=== PATIENT | male | born 1950 | race African-American/Black ===

== ENCOUNTER 2016-11-08 05:17 | Inpatient (IN) | payer OTHER ==
--- NOTE | 2016-11-08 05:21 | PDOC ---
History of Present Illness - General History Source: EMS, Spouse () Exam Limitations: Clinical Condition - History of Present Illness Initial Comments: 11/08/16 05:56 The patient is a 66 year old male with significant past medical history of HIV, well controlled on meds, hypertension, hyperlipemia, hep C that was treated, and insulin-dependent diabetes on metformin and 70/30 novolog 30 units bid who presents to the ED BIBA from home for AMS prior to arrival. As per , at bedside, patient woke up around 1am to go to the bathroom. After she did not notice him come back, she turned on the lights and noted patient to be breathing heavily and was AMS. She reports patient was in his usual state of health yesterday and is noncompliant with his medications. Upon EMS arrival, patients blood sugar levels were noted to be elevated. Allergies: NKDA Social History: Current smoker (1 daily), etoh use, heroin use Past Surgical History: R knee surgery PCP: Dr. Garfield Ko Endocrinology: Dr. Kacy Ruiz <Jenny Mckeon - Last Filed: 11/08/16 07:04> - General History Source: Spouse <Duncan Landis - Last Filed: 11/08/16 19:22> - General Stated Complaint: BLOOD SUGAR PROBLEM Time Seen by Provider: 11/08/16 05:21 Past History <Jenny Mckeon - Last Filed: 11/08/16 07:04> - Past Medical History Anemia: No Asthma: No Cancer: No Cardiac Disorders: Yes (hx high bp, advised to get stents) CVA: No COPD: No CHF: No Dementia: No Diabetes: No GI Disorders: Yes (?ulcers) Disorders: No HTN: Yes Hypercholesterolemia: Yes Liver Disease: No Seizures: No Thyroid Disease: No - Surgical History Orthopedic Surgery: Yes (R knee surgery 01/25/12 = biopsy) - Psycho/Social/Smoking Cessation Hx Anxiety: No Suicidal Ideation: No Smoking History: Current every day smoker Have you smoked in the past 12 months: Yes Number of Cigarettes Smoked Daily: 1 Cigars Per Day: 0 'Breaking Loose' booklet given: 07/07/15 (given previous admission) Hx Alcohol Use: Yes Drug/Substance Use Hx: Yes Substance Use Type: Alcohol, Heroin Hx Substance Use Treatment: Yes (MMTP,REHAB,DETOX) <Duncan Landis - Last Filed: 11/08/16 19:22> - Past Medical History Allergies/Adverse Reactions: Allergies Allergy/AdvReac Type Severity Reaction Status Date / Time No Known Drug Allergies Allergy Verified 11/08/16 05:53 pollen and dust Allergy Mild Itching Uncoded 11/08/16 05:53 weeds Allergy Mild Uncoded 11/08/16 05:53 Home Medications: Ambulatory Orders ASA - 81 mg PO DAILY 11/08/16 Hctz - 12.5 mg PO DAILY 11/08/16 Metformin Xr 100 mg PO 11/08/16 Novolog Flexpen SQ ACHS 11/08/16 Ranexa 500 mg PO DAILY 11/08/16 Review of Systems - Review of Systems Able to Perform ROS?: No Comments:: 11/08/16 05:56 Unable to obtain ROS due to clinical condition <Jenny Mckeon - Last Filed: 11/08/16 07:04> *Physical Exam - Vital Signs Last Vital Signs Temp Pulse Resp BP Pulse Ox 168 H 30 H 98/61 11/08/16 05:53 11/08/16 05:53 11/08/16 05:53 - Physical Exam Comments: 11/08/16 06:07 GENERAL: Pt is combative and confused. HEENT: Normocephalic, atraumatic. PERRLA, EOMI. No conjunctival pallor. Sclera are non- icteric. Moist mucous membranes. Oropharynx is clear. NECK: Supple. Full ROM. No JVD. No thyromegaly. No lymphadenopathy. CARDIOVASCULAR: Tachycardia. Regular rhythm. + s1 and s2. No murmurs, rubs, or gallops. PULMONARY: Pt is tachypneic. Lungs clear to auscultation bilaterally. No wheezing, rales or rhonchi. ABDOMINAL: Soft. Non-tender. Non-distended. No rebound or guarding. No organomegaly. Normoactive bowel sounds. MUSCULOSKELETAL Normal range of motion at all joints. No bony deformities or tenderness. EXTREMITIES: No cyanosis. No clubbing. No edema. No calf tenderness. SKIN: Warm and dry. Normal capillary refill. No rashes. No jaundice. NEUROLOGICAL: Pt is unresponsive due to clinical condition. Moves all extremities x4 spontaneously. <Jenny Mckeon - Last Filed: 11/08/16 07:04> Procedures - Intubation Time of Intubation: 06:30 Intubation Method: nasotracheal Blade used: Mac Tube Size (Fr): 7.5 Medications: Etomidate, Rocuronium Tube position @ lip (cm): 21 Tube position confirmed by: Direct visualization Breath Sounds after Intubation: equal Intubation Complications: no complications Post Intubation Xray: Yes - Additional Procedures Additional Procedures: other (right side IO to medial tibial region. Pt tolerated procedure well. ) <Duncan Landis - Last Filed: 11/08/16 19:22> Heart Score/ECG Review - ECG Impressions Comment:: 11/08/16 05:57 Sinus tachycardia @113bpm Possible left atrial enlargement Left axis deviation Abnormal ECG <Jenny Mckeon - Last Filed: 11/08/16 07:04> ED Treatment Course - LABORATORY CBC & Chemistry Diagram: 11/08/16 05:42 11/08/16 05:42 <Jenny Mckeon - Last Filed: 11/08/16 07:04> - LABORATORY CBC & Chemistry Diagram: 11/08/16 15:30 11/08/16 15:30 <Duncan Landis - Last Filed: 11/08/16 19:22> Medical Decision Making - Critical Care Time Total Critical Care Time (minutes): 60 Critical Care Statement: The care of this patient involved high complexity decision making to prevent further life threatening deterioration of the patient 's condition and/or to evalute & treat vital organ system(s) failure or risk of failure. - Medical Decision Making 11/08/16 06:[address] Jessica Hernandez (via answering service) at 6:27 Awaiting call back 11/08/16 06:47 Second call placed to Dr. Hernandez (via answering service) at 6:47 Awaiting call back 11/08/16 07:04 Third call placed to Dr. Hernandez (via answering service) at 7:04 and patient's case was discussed. <Jenny Mckeon - Last Filed: 11/08/16 07:04> *DC/Admit/Observation/Transfer - Attestations Scribe Attestion: 11/08/16 05:57 Documentation prepared by Jenny Mckeon, acting as medical office worker for Duncan Landis MD <Jenny Mckeon - Last Filed: 11/08/16 07:04> - Discharge Dispostion Admit: Yes <Duncan Landis - Last Filed: 11/08/16 19:22> Diagnosis at time of Disposition: Insulin dependent diabetes mellitus - Discharge Dispostion Condition at time of disposition: Stable - Referrals
[2016-11-08] MEDS ORDERED: SODIUM CHLORIDE 1,000 ML IV STA ×2 (05:23→05:24)
[2016-11-08] MEDS ORDERED: INSULIN REGULAR HUMAN 100 UNITS/ML *VIAL IVPUSH ONE (05:28)
[2016-11-08] MEDS ORDERED: INSULIN REGULAR HUMAN 100 UNITS/ML *VIAL ONE (05:30)
[2016-11-08] MEDS ORDERED: SODIUM BICARBONATE 8.4% 50 MEQ/50 ML DISP.SYRIN IVPUSH ONE ×2 (06:08)
[2016-11-08 06:10] LABS: INR 1.09 (0.82-1.09)
[2016-11-08] MEDS ORDERED: RAPID SEQUENCE INTUBATION KIT NR ONE ×2 (06:11→06:15)
[2016-11-08 06:21] LABS: ALBUMIN 3.5 g/dl (3.4-5.0); AMYLASE 137 U/L (25-115); BILIRUBIN,TOTAL 0.9 mg/dL (0.2-1.0); CALCIUM 8.9 mg/dL (8.5-10.1); CREATININE 3.6 mg/dL (0.7-1.3); SGOT/AST 38 U/L (15-37); SGPT/ALT 24 U/L (12-78); TOT PROT 7.1 g/dl (6.4-8.2)
[2016-11-08 06:24] LABS: ALK PHOS 100 U/L (45-117); TROPONIN I < 0.02 ng/ml (0.00-0.05)
[2016-11-08] MEDS ORDERED: PROPOFOL 100 ML ONE ×4 (06:25→21:20)
[2016-11-08] MEDS ORDERED: ROCURONIUM BROMIDE 100 MG/10 ML VIAL IV ONE (06:30)
[2016-11-08] MEDS ORDERED: ETOMIDATE 20 MG/10 ML AMPUL IVPUSH ONE (06:32)
[2016-11-08 06:35] LABS: ANION GAP 50 (8-16); CO2 3 mmol/L (21-32)
[2016-11-08 06:38] LABS: MCH 29.9 pg (25.7-33.7); MCHC 26.8 g/dl (32.0-35.9); MEAN CELL VOLUME 111.6 fl (80-96); MEAN PLT VOLUME 11.4 fl (7.5-11.1); PLATELET COUNT 142 K/MM3 (134-434); RDW 16.6 % (11.9-15.9); WHITE BLOOD COUNT 14.5 K/mm3 (4.0-10.0)
[2016-11-08 06:40] LABS: GLUCOSE,RANDOM 1326 mg/dL (74-106)
[2016-11-08 06:42] LABS: ACETONE SERUM POSITIVE MODERATE 2+ (NEGATIVE)
[2016-11-08] MEDS ORDERED: SODIUM CHLORIDE 1,000 ML IV ONE (06:48)
[2016-11-08] MEDS ORDERED: PROPOFOL 100 ML IVPB ONE (06:51)
[2016-11-08] MEDS ORDERED: SODIUM CHLORIDE 1,000 ML IV SCH ×2 (07:00→09:00)
[2016-11-08] MEDS ORDERED: LEVOFLOXACIN 500 MG IVPB 100 ML IVPB ONE ×2 (07:06→07:23)
[2016-11-08 07:12] LABS: URINE APPEARANCE CLEAR; URINE BILIRUBIN NEGATIVE (NEGATIVE); URINE COLOR STRAW; URINE GLUCOSE (UA) 3+ (NEGATIVE); URINE KETONE 1+ (NEGATIVE); URINE LEUK ESTERASE NEGATIVE (NEGATIVE); URINE NITRITE NEGATIVE (NEGATIVE); URINE UROBILINOGEN NEGATIVE E.U./dl (0.2-1.0)
[2016-11-08 07:15] LABS: ARTERIAL BLD GAS O2 SATURATION 98.4 % (90-98.9); ARTERIAL BLOOD GAS BASE EXCESS -22.2 meq/l (-2-2); ARTERIAL BLOOD GAS HCO3 8.5 meq/L (22-26)
[2016-11-08 07:16] LABS: ALLENS TEST POSITIVE; ART PUNCT SITE RIGHT RADIAL; LPM/O2% 50%; METHEMOGLOBIN 0.8 % (0.4-1.5); PT. ON O2? YES
[2016-11-08 07:17] LABS: MECH. VENT. YES; TYPE OF O2 MECH VENT; VENT RATE 20; VT/PRESS 400
[2016-11-08 07:17] LABS: URINE BLOOD 2+ (NEGATIVE); URINE PROTEIN 1+ (NEGATIVE)
[2016-11-08 07:18] LABS: ARTERIAL BLOOD GAS pH 6.99 (7.35-7.45)
[2016-11-08 07:19] LABS: URINE BACTERIA RARE /hpf (NONE SEEN); URINE MUCUS RARE; URINE RBC 7 /hpf (0-3); URINE WBC 6 /hpf (3-5)
[2016-11-08 07:30] LABS: ANISOCYTOSIS 2+
--- NOTE | 2016-11-08 07:43 | PDOC ---
*Physical Exam - Vital Signs Last Vital Signs Temp Pulse Resp BP Pulse Ox 93.1 F L 113 H 20 162/94 100 11/08/16 06:44 11/08/16 07:01 11/08/16 07:01 11/08/16 07:01 11/08/16 07:01 - Physical Exam Comments: 11/08/16 07:40 intubated, sedated on vent HR 100 BP 160/90 ED Treatment Course - LABORATORY CBC & Chemistry Diagram: 11/08/16 05:42 11/08/16 05:42 - ADDITIONAL ORDERS Additional order review: Laboratory Results 11/08/16 11/08/16 11/08/16 05:42 05:42 05:42 INR 1.09 Sodium 128 L Potassium 5.0 D Chloride 75 L D Carbon Dioxide 3 L D Anion Gap 50 H BUN 40 H Creatinine 3.6 H D Creat Clearance w eGFR 17.00 Random Glucose 1326 H* Calcium 8.9 Total Bilirubin 0.9 D AST 38 H D ALT 24 Alkaline Phosphatase 100 Creatine Kinase 125 Troponin I < 0.02 Total Protein 7.1 Albumin 3.5 Total Amylase 137 H Lipase 94 Alcohol, Quantitative < 5.0 Acetone, Qual Positive moderate 2+ 11/08/16 05:42 RBC 3.66 L MCV 111.6 H MCHC 26.8 L RDW 16.6 H D MPV 11.4 H D Neutrophils % 65.0 Lymphocytes % 16.0 D Monocytes % 3.0 L - Medications Given in the ED: ED Medications Discontinued Medications Generic Name Dose Route Start Last Admin Trade Name Freq PRN Reason Stop Dose Admin Etomidate 20 mg 11/08/16 06:32 11/08/16 06:33 Amidate - IVPUSH 11/08/16 06:33 20 mg NOW ONE Administration Sodium Chloride 1,000 mls @ 1,000 mls/hr 11/08/16 05:23 11/08/16 05:30 Normal Saline - IV 11/08/16 06:22 1,000 mls/hr ASDIR STA Administration Sodium Chloride 1,000 mls @ 1,000 mls/hr 11/08/16 05:24 11/08/16 05:30 Normal Saline - IV 11/08/16 06:23 1,000 mls/hr ASDIR STA Administration Insulin Human Regular 10 units 11/08/16 05:28 11/08/16 05:56 Novolin R Vial *For Ivpush Or Iv Drip Only* IVPUSH 11/08/16 05:29 10 unit ONCE ONE Administration Rocuronium [place] 5 mg 11/08/16 06:30 11/08/16 06:31 Zemuron - IV 11/08/16 06:31 5 mg NOW ONE Administration Sodium Bicarbonate 50 meq 11/08/16 06:08 11/08/16 06:29 Sodium Bicarbonate 8.4% - IVPUSH 11/08/16 06:09 50 meq ONCE ONE Administration Sodium Bicarbonate 50 meq 11/08/16 06:08 11/08/16 06:29 Sodium Bicarbonate 8.4% - IVPUSH 11/08/16 06:09 50 meq ONCE ONE Administration Medical Decision Making - Critical Care Time Total Critical Care Time (minutes): 30 Critical Care Statement: The care of this patient involved high complexity decision making to prevent further life threatening deterioration of the patient 's condition and/or to evalute & treat vital organ system(s) failure or risk of failure. - Medical Decision Making 11/08/16 07:41 Received signout on this patient who presented in DKA with severe metabolic disarray, severe acidosis, AMS requiring intubation. Pt received IV insulin bolus and IVF, bedside glucose improved to 400 so insulin drip held. Pt was admitted to Dr. Hernandez and endorsed to ICU. Given the markedly elevated anion gap of 50, will recheck labs, start on insulin drip and supplement dextrose as needed. Proceed with ICU admission. *DC/Admit/Observation/Transfer Diagnosis at time of Disposition: Insulin dependent diabetes mellitus - Discharge Dispostion Condition at time of disposition: Stable
[2016-11-08] MEDS ORDERED: INSULIN REGULAR 100 UNITS in SODIUM CHLORIDE 99 ML IVPB SCH (07:45)
[2016-11-08 08:23] LABS: ALBUMIN 3.4 g/dl (3.4-5.0); ALK PHOS 113 U/L (45-117); ANION GAP 38 (8-16); BILIRUBIN,TOTAL 0.9 mg/dL (0.2-1.0); CALCIUM 8.8 mg/dL (8.5-10.1); CO2 10 mmol/L (21-32); CREATININE 3.1 mg/dL (0.7-1.3); SGPT/ALT 28 U/L (12-78)
[2016-11-08 08:33] LABS: ACETONE SERUM POSITIVE MODERATE 2+ (NEGATIVE)
[2016-11-08 08:35] LABS: SGOT/AST 52 U/L (15-37)
[2016-11-08 08:39] LABS: GLUCOSE,RANDOM 1047 mg/dL (74-106)
[2016-11-08] MEDS ORDERED: SODIUM CHLORIDE 1,000 ML with POTASSIUM CHLORIDE 20 MEQ IVPB SCH (09:15)
--- NOTE | 2016-11-08 09:24 | CONSULT ---
Consultation: REQUESTING PROVIDER: CONSULT REQUEST: We have been asked to medically evaluate this patient for (ICU) . 66M past medical history of hypertension, HLD, hep C that was treated, on methadone 60mg, and insulin-dependent diabetes on metformin and 70/30 novolog 30 units bid who presents to the ED via ambulance for lethargy and AMS. as per patient was feeling weak and sluggish for the past 4 days when he suddenly walk up at night walked to the bathroom and back from bed when he vomited once in bed. reports walking up to her and his eyes rolled back and AMS. found to have BS of 1326, AG 50, lactic acid 15, +2 aceton , Found to be in DKA but intubated for respiratory distress from severe acidosis. to note: patient is noncompliant with his medications presented to Dr. Garfield thomas yesterday tachycardic, normotensive, afebrile, with With blood glucose in 500's given 13 units of insulin, CXR and CT yesterday unremarkable, UA (no wbc, no nitrites, +ketones) , EKG Sinus @100bpm. reports he has only taken one of the two insulins the day prior. not filled his insulin drip the day prior as long line in pharmacy. History from Dr. Garfield Thomas, medical chart, and . Allergies: NKDA Social History: heavy smoker, etoh use, heroin use on methadone 60mg. Past Surgical History: R knee surgery PCP: Dr. Garfield Thomas Endocrinology: Dr. Kacy Ruiz HISTORY OF PRESENT ILLNESS: REVIEW OF SYSTEMS: no attainable CONSTITUTIONAL: Absent: fever, chills, diaphoresis, generalized weakness, malaise, loss of appetite, weight change HEENT: Absent: rhinorrhea, nasal congestion, throat pain, throat swelling, difficulty swallowing, mouth swelling, ear pain, eye pain, visual changes CARDIOVASCULAR: Absent: chest pain, syncope, palpitations, irregular heart rate, lightheadedness , peripheral edema RESPIRATORY: Absent: cough, shortness of breath, dyspnea with exertion, orthopnea, wheezing, stridor, hemoptysis GASTROINTESTINAL: Absent: abdominal pain, abdominal distension, nausea, vomiting, diarrhea, constipation, melena, hematochezia GENITOURINARY: Absent: dysuria, frequency, urgency, hesitancy, hematuria, flank pain, genital pain MUSCULOSKELETAL: Absent: myalgia, arthralgia, joint swelling, back pain, neck pain SKIN: Absent: rash, itching, pallor HEMATOLOGIC/IMMUNOLOGIC: Absent: easy bleeding, easy bruising, lymphadenopathy, frequent infections ENDOCRINE: Absent: unexplained weight gain, unexplained weight loss, heat intolerance, cold intolerance NEUROLOGIC: Absent: headache, focal weakness or paresthesias, dizziness, unsteady gait, seizure, mental status changes, bladder or bowel incontinence PSYCHIATRIC: Absent: anxiety, depression, suicidal or homicidal ideation, hallucinations. PHYSICAL EXAMINATION Vital Signs - 24 hr 11/08/16 11/08/16 11/08/16 06:44 07:01 08:01 Temperature 93.1 F L 95.4 F L Pulse Rate 116 H Pulse Rate [ 113 H 127 H Apical] Respiratory 20 20 19 Rate Blood Pressure 179/110 Blood Pressure 162/94 141/89 [Left Arm] O2 Sat by Pulse 100 100 100 Oximetry (%) 11/08/16 08:33 Temperature Pulse Rate Pulse Rate [ Apical] Respiratory 19 Rate Blood Pressure Blood Pressure [Left Arm] O2 Sat by Pulse Oximetry (%) GENERAL: sedated and intubated, HEAD: Normal with no signs of trauma. EYES: Pupils equal, round and reactive to light, pinpoint pupils, EARS, NOSE, THROAT: dry mucous membranes. NECK: Normal range of motion, +JVD, supple without lymphadenopathy,or masses. LUNGS:decreased breath sounds at the bases. HEART: tachycardic regular, hydrodynamic heart sounds, boobing of head with heart beat, normal S1 and S2 with, no rub or gallop appreciated ABDOMEN: Soft, nontender, not distended, normoactive bowel sounds, no guarding, no rebound, no masses. No hepatomegaly or splenomegaly. MUSCULOSKELETAL: Normal range of motion at all joints. No bony deformities or tenderness. LOWER EXTREMITIES: well-perfused. No calf tenderness. No peripheral edema. IO in Right anterior leg. PSYCHIATRIC: Cooperative. Good eye contact. Appropriate mood and affect. SKIN: Warm, dry, normal turgor, no rashes or lesions noted. Laboratory Results - last 24 hr 11/08/16 11/08/16 11/08/16 06:42 06:57 07:00 Puncture Site Right radial ABG pH 6.99 L* ABG pCO2 at Pt Temp 37.3 ABG pO2 at Pt Temp 222.0 H* ABG HCO3 8.5 L* ABG O2 Sat (Measured) 98.4 ABG O2 Content 15.9 ABG Base Excess -22.2 L* Dariusz Test Positive Carboxyhemoglobin 0.6 Methemoglobin 0.8 O2 Delivery Device Mech vent Oxygen Flow Rate 50% Vent Mode A/c Vent Rate 20 Mechanical Rate Yes PEEP 5.0 Pressure Support Vent 400 Sodium Potassium Chloride Carbon Dioxide Anion Gap BUN Creatinine Creat Clearance w eGFR Random Glucose Lactic Acid 18.706 H* Calcium Magnesium Total Bilirubin AST ALT Alkaline Phosphatase Total Protein Albumin Urine Color Straw Urine Appearance Clear Urine pH 6.0 Ur Specific Corrigan 1.018 Urine Protein 1+ H Urine Glucose (UA) 3+ H Urine Ketones 1+ H Urine Blood 2+ H Urine Nitrite Negative Urine Bilirubin Negative Urine Urobilinogen Negative Ur Leukocyte Esterase Negative Urine RBC 7 Urine WBC 6 Urine Bacteria Rare Urine Mucus Rare Acetone, Qual 11/08/16 07:35 Puncture Site ABG pH ABG pCO2 at Pt Temp ABG pO2 at Pt Temp ABG HCO3 ABG O2 Sat (Measured) ABG O2 Content ABG Base Excess Dariusz Test Carboxyhemoglobin Methemoglobin O2 Delivery Device Oxygen Flow Rate Vent Mode Vent Rate Mechanical Rate PEEP Pressure Support Vent Sodium 133 L Potassium 4.1 Chloride 85 L D Carbon Dioxide 10 L D Anion Gap 38 H BUN 35 H Creatinine 3.1 H Creat Clearance w eGFR 20.20 Random Glucose 1047 H* Lactic Acid Calcium 8.8 Magnesium 3.0 H D Total Bilirubin 0.9 AST 52 H D ALT 28 Alkaline Phosphatase 113 Total Protein 7.0 Albumin 3.4 Urine Color Urine Appearance Urine pH Ur Specific Corrigan Urine Protein Urine Glucose (UA) Urine Ketones Urine Blood Urine Nitrite Urine Bilirubin Urine Urobilinogen Ur Leukocyte Esterase Urine RBC Urine WBC Urine Bacteria Urine Mucus Acetone, Qual Positive moderate 2+ Active Medications Generic Name Dose Route Start Last Admin Trade Name Freq PRN Reason Stop Dose Admin Heparin Sodium (Porcine) 5,000 unit 11/08/16 14:00 11/08/16 13:57 Heparin - SQ 5,000 unit TID LAMAR Administration Propofol 100 mls @ 1.769 mls/hr 11/08/16 06:51 11/08/16 06:51 Diprivan - IVPB 11/10/16 15:22 1.769 mls/hr TITR ONE Administration Protocol 5 MCG/KG/MIN Insulin Human Regular 100 100 mls @ 5.89 mls/hr 11/08/16 07:45 11/08/16 09:17 units/ Sodium Chloride IVPB 0.16 units/kg/hr TITR LAMAR Titration Protocol 0.1 UNITS/KG/HR Potassium Chloride/Sodium Chloride 1,000 mls @ 200 mls/hr 11/08/16 09:38 12:03 Ns+20 Meq Kcl - IV 11/09/16 14:17 200 mls/hr ASDIR LAMAR Administration Piperacillin Sod/Tazobactam Sod 50 mls @ 100 mls/hr 11/08/16 13:45 11/08/16 13: 57 Zosyn 2.25gm Ivpb (Pre-Docked) IVPB 100 mls/hr Q8H-IV LAMAR Administration Protocol Pantoprazole Sodium 40 mg/ 100 mls @ 200 mls/hr 11/08/16 22:00 Sodium Chloride IVPB BID LAMAR Methadone HCl 60 mg 11/09/16 06:00 Dolophine Injection - IM DAILY@0600 [facility] ASSESSMENT/PLAN: 66M past medical history of hypertension, HLD, hep C that was treated, and insulin-dependent diabetes on metformin and 70/30 novolog 30 units bid who presents to the ED via ambulance for lethargy and AMS. found to have BS of 1326, AG 50, lactic acid 15, +2 aceton, Found to be in DKA but intubated for respiratory distress from severe acidosis. DKA: Sever metabolic acidosis and acute respiratory Acidosis Resp failure r/o sepsis s/p IVNS bolus x3 IV1/2 normal saline, IVD51/2 normal saline if BG less 250 i9n light of corrected Na 147. insulin gtt 0.1U/kg/H, crease to 0.05 U/kg/H once sugar bellow 250 and once AG closes. if sugar less than 250 switch to D5NSIV Kcl given, replete when K is less than 4.5. cont to monitor serum potassium even after transfusion. finger sticks q1h BMP q4H hypokalmia replete k 3x Garibaldi hypophosphatemia kphos IV 30meq Pseudohyponatremia: intially corrected Na 148, now 147. f/u urine and Bcx NS switched D5 1/2 NS and Decrease rate inlight of JVD and improvement of gap. lactic acidosis: lactic acid q6h- trending down 18.706 H* --> 8.169 H*--> 6.697 H* hypotenssion: stable s/p bolus and IVF Sever sepsis: leukocytosis/ bandemia/hypothermia/ tachycardia/ possible sepsis/ hypotension Lactic Acidosis trend Empiric antibiotics follow cultures vanco/ zosyn adjusted for azotemia vanco levelin am Shock - Hypovolemic vs Septic IV fluids Hypothermia, possibly secondary to sepsis, currently improved. IVF and sepsis treatment as above. Acute Kidney Injury 2/2 prerenal Azotemia- hypovolemia vs sepsis vs ATN IVF Urine lytes urine osmolarity Hepatitis C carrier ID on board Heroin use: urine tox screen + opoids and methadone on chronic methadone, continue 60mg daily 6am. monitor for signs of withdrawal FEN replete electrolytes as needed NPO IV1/2 noraml saline, IVD51/2 normal saline if BG less 250. - once resuscitated, can establish peripheral access and d/c I/O line - keep sedated for vent synchrony DVT/GI prophylaxis - HEPRIN 5000 tid SQ - Pantoprazole Dispo: We will continue to follow the patient in ICU. Thank you for this consultative opportunity. Visit type - Emergency Visit Emergency Visit: Yes ED Registration Date: 11/08/16 Care time: The patient presented to the Emergency Department on the above date and was hospitalized for further evaluation of their emergent condition. - New Patient This patient is new to me today: Yes Date on this admission: 11/08/16 - Critical Care Critical Care patient: Yes Total Critical Care Time (in minutes): 52 Critical Care Statement: The care of this patient involved high complexity decision making to prevent further life threatening deterioration of the patient 's condition and/or to evalute & treat vital organ system(s) failure or risk of failure.
[2016-11-08] MEDS ORDERED: SODIUM CHLORIDE 0.9%/KCL 1,000 ML IV SCH (09:38)
[2016-11-08 10:05] VITALS: BMI 20.3
[2016-11-08 10:09] LABS: ARTERIAL BLD GAS O2 SATURATION 99.8 % (90-98.9); ARTERIAL BLOOD GAS BASE EXCESS -7.9 meq/l (-2-2); ARTERIAL BLOOD GAS HCO3 16.4 meq/L (22-26)
[2016-11-08 10:10] LABS: ALLENS TEST POSITIVE; ART PUNCT SITE RIGHT RADIAL; ARTERIAL BLOOD GAS pH 7.34 (7.35-7.45); PT. ON O2? YES
[2016-11-08 10:11] LABS: LPM/O2% 50%; MECH. VENT. ESPRIT; TYPE OF O2 OT; VENT RATE 20; VT/PRESS 400
[2016-11-08 10:56] LABS: BILIRUBIN,TOTAL 0.7 mg/dL (0.2-1.0); CALCIUM 7.9 mg/dL (8.5-10.1); CREATININE 3.2 mg/dL (0.7-1.3); TOT PROT 6.4 g/dl (6.4-8.2)
--- NOTE | 2016-11-08 11:32 | EKG ---
Test Reason : Blood Pressure : / mmHG Vent. Rate : 113 BPM Atrial Rate : 113 BPM P-R Int : 136 ms QRS Dur : 084 ms QT Int : 348 ms P-R-T Axes : 063 -49 066 degrees QTc Int : 477 ms POOR DATA QUALITY, INTERPRETATION MAY BE ADVERSELY AFFECTED SINUS TACHYCARDIA POSSIBLE LEFT ATRIAL ENLARGEMENT LEFT AXIS DEVIATION ABNORMAL ECG WHEN COMPARED WITH ECG OF 26-MAY-2016 08:41, VENT. RATE HAS INCREASED BY [address] NO LONGER ELEVATED IN LATERAL LEADS T WAVE INVERSION NO LONGER EVIDENT IN INFERIOR LEADS Confirmed by VALERIA EASTMAN MD ([id number]) on 11/08/2016 11:31:31 AM Referred By: Confirmed By:VALERIA EASTMAN MD
--- NOTE | 2016-11-08 11:32 | EKG ---
Test Reason : Blood Pressure : / mmHG Vent. Rate : 098 BPM Atrial Rate : 098 BPM P-R Int : 128 ms QRS Dur : 082 ms QT Int : 386 ms P-R-T Axes : 076 -23 065 degrees QTc Int : 492 ms SINUS RHYTHM WITH OCCASIONAL PREMATURE VENTRICULAR COMPLEXES LOW VOLTAGE QRS INFERIOR INFARCT , AGE UNDETERMINED ABNORMAL ECG WHEN COMPARED WITH ECG OF 08-NOV-2016 05:52, PREMATURE VENTRICULAR COMPLEXES ARE NOW PRESENT INFERIOR INFARCT IS NOW PRESENT Confirmed by RAIZA CLAIRE, VALERIA ([id number]) on 11/08/2016 11:32:32 AM Referred By: Laurie TORRES Confirmed By:VALERIA EASTMAN MD
[2016-11-08] MEDS ORDERED: HEMOQUE TEST 1 EACH EACH ONE (11:52)
--- NOTE | 2016-11-08 12:32 | PN ---
Teaching Attending Note Name of Resident: Michelle Anna ATTENDING PHYSICIAN STATEMENT I saw and evaluated the patient. I reviewed the resident's note and discussed the case with the resident. I agree with the resident's findings and plan as documented. SUBJECTIVE: Pt seen and examined in the ICU. Briefly, 66yo male with h/o DM, HTN, hyperlipidemia, Hep C who was admitted with lethargy, altered mental status. Found to be in DKA but intubated for respiratory distress from severe acidosis. Currently in the ICU, intubated, sedated, family at bedside on insulin gtt and IVF. OBJECTIVE: Last Vital Signs Temp Pulse Resp BP Pulse Ox 99.1 F 116 H 22 86/67 99 11/08/16 10:46 11/08/16 10:46 11/08/16 11:58 11/08/16 10:46 11/08/16 10:39 Intake & Output 11/05/16 11/06/16 11/07/16 11/08/16 23:59 23:59 23:59 23:59 Output Total 200 Balance -200 Weight 142 lb Gen: intubated, sedated Heart: tachycardic, regular Lung: decreased breath sounds at the bases Abd: soft, nontender Ext: no edema CBC, BMP 11/08/16 05:42 ABG Results ABG pH 7.34 (7.35-7.45) L D 11/08/16 10:05 ABG pCO2 at Pt Temp 31.1 mmHg (35-45) L 11/08/16 10:05 ABG pO2 at Pt Temp 212.0 mmHg (80-100) H* 11/08/16 10:05 ABG HCO3 16.4 meq/L (22-26) L 11/08/16 10:05 ABG O2 Sat (Measured) 99.8 % (90-98.9) H* 11/08/16 10:05 ABG O2 Content 14.3 % vol (15-22) L 11/08/16 10:05 ABG Base Excess -7.9 meq/l (-2-2) L 11/08/16 10:05 Active Medications Heparin Sodium (Porcine) (Heparin -) 5,000 unit SQ TID LAMAR Propofol (Diprivan -) 100 mls @ 1.769 mls/hr IVPB TITR ONE; 5 MCG/KG/MIN PRN Reason: Protocol Stop: 11/10/16 15:22 Last Admin: 11/08/16 06:51 Dose: 1.769 mls/hr Insulin Human Regular 100 (units/ Sodium Chloride) 100 mls @ 5.89 mls/hr IVPB TITR LAMAR; 0.1 UNITS/KG/HR PRN Reason: Protocol Last Titration: 11/08/16 09:17 Dose: 0.16 units/kg/hr Potassium Chloride/Sodium Chloride (Ns+20 Meq Kcl -) 1,000 mls @ 200 mls/hr IV ASDIR LAMAR Stop: 11/09/16 14:17 Last Admin: 11/08/16 12:03 Dose: 200 mls/hr Pantoprazole Sodium (Protonix 40mg Ivpb (Pre-Docked)) 100 mls @ 200 mls/hr IVPB ONCE ONE Stop: 11/08/16 13:14 ASSESSMENT AND PLAN: Diabetic Ketoacidosis/HHNK overlap Severe Metabolic Acidosis Acute Respiratory Acidosis r/o Sepsis Lactic Acidosis Pseudohyponatremia Acute Kidney Injury Shock - Hypovolemic vs Septic - aggressive IVF resuscitation - empiric antibiotics - f/u cultures - insulin gtt - monitor BMP, BGM - replete lytes - trend lactate - keep sedated for vent synchrony - once resuscitated, can establish peripheral access and d/c I/O line - monitor ABG - continue volume assist control - DVT/GI prophylaxis - ICU monitoring
[2016-11-08 12:44] LABS: CALCIUM 7.5 mg/dL (8.5-10.1); CREATININE 2.8 mg/dL (0.7-1.3)
--- NOTE | 2016-11-08 12:44 | PN ---
Progress Note (short form) - Note Progress Note: ID consult dictated DKA Hypothermia, leukocytosis/ bandemia possible sepsis Resp failure Azotemia Pending sepsis workup, empiric vanco/ zosyn adjusted for azotemia
[2016-11-08] MEDS ORDERED: PANTOPRAZOLE SODIUM 100 ML IVPB ONE (12:45)
[2016-11-08] MEDS ORDERED: VANCOMYCIN 1 GRAM (PRE-DOCKED) 250 ML IVPB ONE (13:45)
[2016-11-08] MEDS: HEPARIN NA (PORCINE) 5,000 UNITS/ML 1ML VIAL SQ SCH ×2 (13:57→21:22)
[2016-11-08] MEDS: PIPERACILLIN/TAZOB 2.25 GM 50 ML IVPB SCH ×2 (13:57→17:38)
[2016-11-08 16:01] LABS: URINE MARIJUANA THC NEGATIVE ng/ml (CUTOFF=50)
--- NOTE | 2016-11-08 16:15 | CONS ---
INFECTIOUS DISEASE CONSULTATION DATE OF CONSULTATION: 11/08/2016 DICTATED BY: Jaguar Aguirre MD HISTORY OF PRESENT ILLNESS: A 66-year-old diabetic male evaluated for leukocytosis and hypothermia. History was obtained from the chart as the patient is presently intubated and unable to give a history. His was present at the time of the examination. She reports that he had not been feeling well for approximately 1 day. She reports on the evening of admission he had become increasingly confused and unsteady on his feet. He had ambulated to the bathroom where he vomited and was noted by his to be unsteady. He was also dyspneic. He was brought to the emergency room where his blood sugar was over 1000. He was diagnosed with diabetic ketoacidosis. Patient developed respiratory failure and was intubated. At the present time, he is intubated and sedated on a ventilator. His course has been complicated by hypothermia with a temperature of 93 and an elevated white blood cell count with left shift. He was empirically treated with Levaquin. At the present time he is awake. He is sedated on the ventilator. She denies any recent febrile illness. No recent respiratory tract illness or urinary tract complaints. No recent diarrhea. He did have episodes of vomiting prior to admission. Patient states he had been adherent to his insulin regimen. PAST MEDICAL HISTORY: Positive for insulin-dependent diabetes mellitus, history of hypertension, hyperlipidemia, hepatitis C, which reportedly was treated. No known allergies. SOCIAL HISTORY: Lives at home with his significant other. Positive tobacco use. Also, history of alcohol and heroine use per chart. SYSTEMS REVIEW: Neurologic: Positive for altered mentation. Cardiac: Negative chest pain or palpitations. Respiratory: As per HPI. Gastrointestinal: Positive for vomiting, no diarrhea. Genitourinary: Negative for urinary tract symptoms. LABORATORY DATA: White count 14.5 with 16 bands, hematocrit 40.9, platelet count 142. Urinalysis: 6 white cells. Blood and urine cultures are pending. Chest x-ray: Negative for acute infiltrate. PHYSICAL EXAMINATION: General: He is sedated on the ventilator. Vital signs: Temperature 99.1, blood pressure 86/67, pulse 116/regular, respirations 22 per minute. HEENT: Sclerae anicteric. Neck is supple. Patient is orally intubated. Heart: Sounds tachycardic. S1, S2. Lungs: Air entry bilaterally. Abdomen: Soft. No tenderness elicited. No mass, rebound or rigidity. Extremities: Negative for edema. There is an IV catheter in his foot as well as intraosseous catheter in his right tibia. No foot ulcers noted. IMPRESSION: 1. Acute diabetic ketoacidosis. 2. Hypothermia, hypotension, leukocytosis with bandemia, possible sepsis. PLAN: 1. Await culture results. 2. Empiric antibiotic coverage in this patient with diabetic ketoacidosis and azotemia with vancomycin and Zosyn adjusted for azotemia. Case discussed with patient's present at the time of the examination. Thank you for the kind referral. JAGUAR AGUIRRE M.D. [id number]
[2016-11-08 16:17] LABS: BASOPHIL 0.1 % (0-2.0); EOSINOPHIL 0.5 % (0-4.5); MCH 29.8 pg (25.7-33.7); MEAN CELL VOLUME 90.3 fl (80-96); MEAN PLT VOLUME 10.1 fl (7.5-11.1); NEUTROPHILS 82.8 % (42.8-82.8); WHITE BLOOD COUNT 7.6 K/mm3 (4.0-10.0)
[2016-11-08] MEDS: INSULIN REGULAR 100 UNITS in SODIUM CHLORIDE 99 ML IVPB SCH ×2 (16:22→16:45)
--- NOTE | 2016-11-08 17:03 | CON.CARD ---
Consult Consult Specialty:: Cardiology Referred by:: Dr. Hernandez Reason for Consultation:: h/o cardiomyopathy - History of Present Illness Chief Complaint: DKA History of Present Illness: 66 year old man h/o HIV, HTN, HLD, HCV, DM II admitted with AMS, SOB, found to be in DKA, intubated for airway progression. Pt. has a history of a "cardiomyopathy" as per PMD notes but unknown details. Pt. seen and examined in ICU, intubated, sedated, unresponsive. No reported history of chest pain, palpitations, pnd, orthopnea, or LE edema. - History Source History Provided By: Medical Record Limitations to Obtaining History: Unresponsive - Past Medical History Cardio/Vascular: Yes: HTN, Hyperlipdemia Infectious Disease: Yes: HIV Endocrine: Yes: Diabetes Mellitus - Alcohol/Substance Use Hx Alcohol Use: Yes - Smoking History Smoking history: Current every day smoker Have you smoked in the past 12 months: Yes Aproximately how many cigarettes per day: 10 - Social History Usual Living Arrangement: With Spouse ADL: Independent History of Recent Travel: No Home Medications - Allergies Allergies/Adverse Reactions: Allergies Allergy/AdvReac Type Severity Reaction Status Date / Time No Known Drug Allergies Allergy Verified 11/08/16 05:53 pollen and dust Allergy Mild Itching Uncoded 11/08/16 05:53 weeds Allergy Mild Uncoded 11/08/16 05:53 - Home Medications Home Medications: Ambulatory Orders ASA - 81 mg PO DAILY 11/08/16 Hctz - 12.5 mg PO DAILY 11/08/16 Metformin Xr 100 mg PO 11/08/16 Novolog Flexpen SQ ACHS 11/08/16 Ranexa 500 mg PO DAILY 11/08/16 Family Disease History - Family Disease History Family Disease History: Diabetes: Mother ( age 84 from dm), Heart Disease: Father ( age 50s hx mi), Mother, Brother (8 brothers, 1 d age 60s from ca), Other: Grandparent (all dec' natural causes), Father, Brother, Sister (3 all a&w), Son (has 4 a&w), Daughter (2 a&w) Review of Systems - Review of Systems Constitutional: reports: Lethargy, Malaise, Weakness. denies: No Symptoms, Chills, Diaphoresis, Fever, Loss of Appetite, Night Sweats, Unintentional Wgt. Loss, Other Eyes: denies: No Symptoms, Blind Spots, Blurred Vision, Double Vision, Eye Pain , Floaters, Photophobia, Recent Change in Vision, Other HENT: denies: No Symptoms, Difficult Swallowing, Ear Discharge, Ear Pain, Epistaxis, Gingival Bleeding, Hearing Loss, Mouth Swelling, Nasal Congestion, Ocular Prosthesis, Throat Pain, Toothache, Ringing in Ears, Other Neck: denies: No Symptoms, Decreased ROM, Lumps, Pain on Movement, Stiffness, Swollen Glands, Tenderness, Other Cardiovascular: reports: Shortness of Breath. denies: No Symptoms, Chest Pain, Edema, Palpitations, Other Respiratory: reports: SOB. denies: No Symptoms, Cough, Exercise Intolerance, Hemoptysis, Orthopnea, PND, Snoring, SOB on Exertion, Wheezing, Other Gastrointestinal: denies: No Symptoms, Abdominal Pain, Bloating, Constipation, Diarrhea, Dysphagia, Indigestion, Melena, Nausea, Rectal Bleeding, Vomiting, Vomiting Blood, Other Genitourinary: denies: No Symptoms, Burning, Discharge, Dysuria, Flank Pain, Frequency, Hematuria, Incontinence, Lesions, Menses, Pain, Testicular Mass, Testicular Pain, Testicular Swelling, Urgency, Vaginal Bleeding, Other Breasts: denies: No Symptoms Reported, See HPI, Breast Implants, Discharge from Nipple, Lumps, Pain, Skin Changes, Other Musculoskeletal: denies: No Symptoms, Back Pain, Crepitus, Decreased ROM, Extremity Pain, Joint Pain, Joint Swelling, Muscle Pain, Muscle Cramps, Muscle Weakness, Other Integumentary: denies: No Symptoms, Blister, Bruising, Change in Color, Eczema, Erythema, Incision, Lesions, Lump, Pallor, Pruritis, Rash, Wound, Other Neurological: reports: Change in LOC, Confusion. denies: No Symptoms, Change in Speech, Dizziness, Headache, Incoordination, Numbness, Parasthesia, Pre- Existing Deficit, Seizure, Syncope, Tremors, Unsteady Gait, Weakness, Other Endocrine: denies: No Symptoms, Excessive Sweating, Flushing, Increased Hunger, Increased Thirst, Intolerance to Cold, Intolerance to Heat, Unexplained Weight Gain, Unexplained Weight Loss, Other Hematology/Lymphatic: denies: No Symptoms, Easily Bruised, Excessive Bleeding, Swollen Glands, Other Psychiatric: denies: No Symptoms, Altered Sleep Pattern, Anxiety, Depression, Hallucinations, Panic, Paranoia, Suicidal, Other - Risk Factors Known Risk Factors: Yes: Diabetes Mellitus, Hypercholesterolemia, Hypertension Vital Signs: Vital Signs Temperature 99.6 F 11/08/16 16:00 Pulse Rate 96 H 11/08/16 16:00 Respiratory Rate 22 11/08/16 16:17 Blood Pressure 110/66 11/08/16 16:00 O2 Sat by Pulse Oximetry (%) 99 11/08/16 10:39 Constitutional: Yes: No Distress, Calm, Thin Eyes: Yes: Conjunctiva Clear, PERRL HENT: Yes: Atraumatic, Normocephalic Neck: Yes: Supple, Trachea Midline Respiratory: Yes: Regular, CTA Bilaterally, Intubated, Mechanically Ventilated. No: Rales, Rhonchi, Wheezes Gastrointestinal: Yes: WNL, Normal Bowel Sounds, Soft. No: Distention, Tenderness Renal/: Yes: WNL Cardiovascular: Yes: WNL, Regular Rate and Rhythm. No: Bradycardia, Tachycardia , Pulse Irregular, Gallop, Rub, Varicosities JVD: No Carotid Bruit: No PMI: Non-Displaced Heart Sounds: Yes: S1, S2. No: Split S2, S3, S4, Clicks, Gallop, Rub, Bruit Murmur: No: Systolic Murmur, Diastolic Murmur Edema: No Peripheral Pulses WNL: Yes Peripheral Pulses: 2+ Left Doralis Pedis, 2+ Right Dorsalis Pedis Integumentary: Yes: WNL Neurological: Yes: Unresponsive. No: Alert, Oriented Psychiatric: No: Alert, Oriented - Other Data Labs, Other Data: CBC, BMP 11/08/16 15:30 INR, PTT INR 1.09 (0.82-1.09) 11/08/16 05:42 ekg-sinus tach 113bpm, LAD, LAFB Imaging - Results Chest X-ray: Report Reviewed, Image Reviewed EKG: Report Reviewed, Image Reviewed Other: Report Reviewed, Image Reviewed (tele-nsr, sinus tach, pvcs) Assessment/Plan 66 year old man h/o HIV, HTN, HLD, HCV, DM II admitted with AMS, SOB, found to be in DKA, intubated for airway progression. Pt. has a history of a "cardiomyopathy" as per PMD notes but unknown details. Respiratory failure-secondary to DKA -as per CCM -no sign of CHF clinically or on imaging -can check echo tomorrow given reported history of unknown "cardiomyopathy" -would not diurese at this time HTN-hypotensive on admission -hold anti-HTN meds
[2016-11-08 17:18] LABS: CALCIUM 7.2 mg/dL (8.5-10.1); MAGNESIUM 2.3 mg/dL (1.8-2.4)
[2016-11-08 17:25] LABS: CREATININE 2.2 mg/dL (0.7-1.3)
[2016-11-08 18:30] LABS: PHOSPHOROUS 0.7 mg/dL (2.5-4.9)
[2016-11-08] MEDS ORDERED: DEXTROSE 5%-0.45% SALINE 1,000 ML IV SCH (19:00)
[2016-11-08 19:05] LABS: PLATELET COUNT 95 K/MM3 (134-434); PLATELET ESTIMATE DECREASED (NORMAL)
[2016-11-08] MEDS: KCL 10 MEQ IVPB 100 ML IVPB SCH ×3 (20:36→21:42)
[2016-11-08 20:48] LABS: CALCIUM 7.7 mg/dL (8.5-10.1); CREATININE 1.9 mg/dL (0.7-1.3); MAGNESIUM 2.2 mg/dL (1.8-2.4)
[2016-11-08] MEDS ORDERED: POTASSIUM PHOSPHATE 30 MM in DEXTROSE 5%-WATER - 250 ML IVPB ONE (21:00)
[2016-11-08] MEDS: PANTOPRAZOLE SODIUM 100 ML IVPB SCH (21:22)
[2016-11-08] MEDS ORDERED: D5-1/2NS+20 MEQ KCL - 1,000 ML IV SCH (22:00)
[2016-11-08] MEDS ORDERED: SODIUM CHLORIDE 0.45%/POT 1,000 ML IV SCH (22:00)
--- NOTE | 2016-11-09 00:30 | CONSULT ---
Consult Consult Specialty:: endocrine Referred by:: dr.rocco agudelo Reason for Consultation:: dka - History of Present Illness Chief Complaint: intubated /dka History of Present Illness: 66 y male intubated in icu,under sedation,pmh iddm,hiv,hep c,htn,hyperlipidemia, found unresponsive by who called ems,bs noted very high in dka - History Source History Provided By: Family Member - Past Medical History Cardio/Vascular: Yes: HTN, Hyperlipdemia Infectious Disease: Yes: HIV Endocrine: Yes: Diabetes Mellitus - Alcohol/Substance Use Hx Alcohol Use: Yes - Smoking History Smoking history: Current every day smoker Have you smoked in the past 12 months: Yes Aproximately how many cigarettes per day: 1 - Social History Usual Living Arrangement: With Spouse ADL: Independent History of Recent Travel: No Home Medications - Allergies Allergies/Adverse Reactions: Allergies Allergy/AdvReac Type Severity Reaction Status Date / Time No Known Drug Allergies Allergy Verified 11/08/16 05:53 pollen and dust Allergy Mild Itching Uncoded 11/08/16 05:53 weeds Allergy Mild Uncoded 11/08/16 05:53 - Home Medications Home Medications: Ambulatory Orders ASA - 81 mg PO DAILY 11/08/16 Hctz - 12.5 mg PO DAILY 11/08/16 Metformin Xr 100 mg PO 11/08/16 Novolog Flexpen SQ ACHS 11/08/16 Ranexa 500 mg PO DAILY 11/08/16 Family Disease History - Family Disease History Family Disease History: Diabetes: Mother (dec'd age 84 from dm), Heart Disease: Father (jul'd age 50s hx mi), Mother, Brother (8 brothers, 1 dec'd age 60s from ca), Other: Grandparent (all dec'd natural causes), Father, Brother, Sister (3 all a&w), Son (has 4 a&w), Daughter (2 a&w) Review of Systems Unable to obtain ROS, reason: intubated sedation Physical Exam Vital Signs: Vital Signs Temperature 100.4 F H 11/08/16 22:01 Pulse Rate 92 H 11/08/16 22:01 Respiratory Rate 20 11/09/16 00:20 Blood Pressure 107/71 11/08/16 22:01 O2 Sat by Pulse Oximetry (%) 100 11/08/16 22:12 Eyes: Yes: EOM Intact HENT: Yes: Normocephalic Neck: Yes: Trachea Midline Cardiovascular: Yes: Regular Rate and Rhythm Respiratory: Yes: CTA Bilaterally Gastrointestinal: Yes: Normal Bowel Sounds ...Rectal Exam: Yes: Deferred Renal/: Yes: WNL Breast(s): Yes: WNL Musculoskeletal: Yes: WNL Extremities: Yes: WNL Edema: No Peripheral Pulses WNL: Yes Neurological: Yes: Unresponsive Labs: CBC, BMP 11/08/16 15:30 11/08/16 17:55 Problem List - Problems (1) Insulin dependent diabetes mellitus Code(s): E11.9 - TYPE 2 DIABETES MELLITUS WITHOUT COMPLICATIONS Z79.4 - INSPECTOR TYPE (CURRENT) USE OF INSULIN (2) Chronic use of opiate for therapeutic purpose Code(s): Z79.899 - OTHER JAIL (CURRENT) DRUG THERAPY (3) DKA (diabetic ketoacidosis) Code(s): E13.10 - OTH DIABETES MELLITUS WITH KETOACIDOSIS WITHOUT COMA Assessment/Plan Current Active Problems Hypoglycemia (Acute) Insulin dependent diabetes mellitus (Chronic) DKA./HYPOVOLEMIA/SEPSIS/ LACTIC ACIDOSIS DEHYDDRATION Abnormal Lab Results 11/08/16 11/08/16 11/08/16 05:42 05:42 06:42 WBC 14.5 H D RBC 3.66 L Hgb 10.9 L D Hct MCV 111.6 H MCHC 26.8 L RDW 16.6 H D Plt Count MPV 11.4 H D Monocytes % 3.0 L Band Neutrophils 16.0 H ABG pH ABG pCO2 at Pt Temp ABG pO2 at Pt Temp ABG HCO3 ABG O2 Sat (Measured) ABG O2 Content ABG Base Excess Sodium 128 L Potassium Chloride 75 L D Carbon Dioxide 3 L D Anion Gap 50 H BUN 40 H Creatinine 3.6 H D Random Glucose 1326 H* Lactic Acid 18.706 H* Calcium Phosphorus Magnesium AST 38 H D Albumin Total Amylase 137 H Urine Protein Urine Glucose (UA) Urine Ketones Urine Blood 11/08/16 11/08/16 11/08/16 06:57 07:00 07:35 WBC RBC Hgb Hct MCV MCHC RDW Plt Count MPV Monocytes % Band Neutrophils ABG pH 6.99 L* ABG pCO2 at Pt Temp ABG pO2 at Pt Temp 222.0 H* ABG HCO3 8.5 L* ABG O2 Sat (Measured) ABG O2 Content ABG Base Excess -22.2 L* Sodium 133 L Potassium Chloride 85 L D Carbon Dioxide 10 L D Anion Gap 38 H BUN 35 H Creatinine 3.1 H Random Glucose 1047 H* Lactic Acid Calcium Phosphorus Magnesium 3.0 H D AST 52 H D Albumin Total Amylase Urine Protein 1+ H Urine Glucose (UA) 3+ H Urine Ketones 1+ H Urine Blood 2+ H 11/08/16 11/08/16 11/08/16 10:00 10:00 10:05 WBC RBC Hgb Hct MCV MCHC RDW Plt Count MPV Monocytes % Band Neutrophils ABG pH 7.34 L D ABG pCO2 at Pt Temp 31.1 L ABG pO2 at Pt Temp 212.0 H* ABG HCO3 16.4 L ABG O2 Sat (Measured) 99.8 H* ABG O2 Content 14.3 L ABG Base Excess -7.9 L Sodium 135 L Potassium Chloride 89 L Carbon Dioxide 19 L D Anion Gap 27 H BUN 41 H Creatinine 3.2 H Random Glucose 1053 H* Lactic Acid 8.169 H* Calcium 7.9 L Phosphorus Magnesium AST 52 H Albumin 3.0 L Total Amylase Urine Protein Urine Glucose (UA) Urine Ketones Urine Blood 11/08/16 11/08/16 11/08/16 11:40 11:40 15:30 WBC RBC Hgb Hct MCV MCHC RDW Plt Count MPV Monocytes % Band Neutrophils ABG pH ABG pCO2 at Pt Temp ABG pO2 at Pt Temp ABG HCO3 ABG O2 Sat (Measured) ABG O2 Content ABG Base Excess Sodium Potassium Chloride Carbon Dioxide Anion Gap 19 H BUN 37 H Creatinine 2.8 H Random Glucose 810 H* D Lactic Acid 6.697 H* 6.096 H* Calcium 7.5 L Phosphorus Magnesium AST Albumin Total Amylase Urine Protein Urine Glucose (UA) Urine Ketones Urine Blood 11/08/16 11/08/16 11/08/16 15:30 15:30 17:55 WBC RBC 3.03 L Hgb 9.0 L D Hct 27.4 L D MCV MCHC RDW Plt Count 95 L D MPV Monocytes % Band Neutrophils ABG pH ABG pCO2 at Pt Temp ABG pO2 at Pt Temp ABG HCO3 ABG O2 Sat (Measured) ABG O2 Content ABG Base Excess Sodium 147 H 149 H Potassium 3.2 L 3.2 L Chloride 109 H D 113 H Carbon Dioxide Anion Gap BUN 29 H D 26 H Creatinine 2.2 H D 1.9 H Random Glucose 356 H* D Lactic Acid Calcium 7.2 L 7.7 L Phosphorus 0.7 L* 1.0 L* D Magnesium AST Albumin Total Amylase Urine Protein Urine Glucose (UA) Urine Ketones Urine Blood 11/08/16 17:55 WBC RBC Hgb Hct MCV MCHC RDW Plt Count MPV Monocytes % Band Neutrophils ABG pH ABG pCO2 at Pt Temp ABG pO2 at Pt Temp ABG HCO3 ABG O2 Sat (Measured) ABG O2 Content ABG Base Excess Sodium Potassium Chloride Carbon Dioxide Anion Gap BUN Creatinine Random Glucose Lactic Acid 3.750 H* Calcium Phosphorus Magnesium AST Albumin Total Amylase Urine Protein Urine Glucose (UA) Urine Ketones Urine Blood PLAN: CORRECTION OF HYPERGLYCEMIA WITH IVFLUID NS @200CC /HR THEN IVINSULIN DRIP Q1 HR NEEDED THEN D.5NS @20KCL FOR BS BELOW 150MG/DL \TITRATE INSULIN DRIP FOR BGM SCALE NEEDED
[2016-11-09] MEDS ORDERED: FENTANYL INJECTION 500 MCG in DEXTROSE 5%-WATER - 90 ML IJ SCH (00:45)
--- NOTE | 2016-11-09 00:54 | HP ---
Admitting History and Physical - Past Medical History Cardiovascular: Yes: HTN, Hyperlipdemia Infectious Disease: Yes: HIV Endocrine: Yes: Diabetes Mellitus - Smoking History Smoking history: Current every day smoker Have you smoked in the past 12 months: Yes Aproximately how many cigarettes per day: 1 - Alcohol/Substance Use Hx Alcohol Use: Yes - Social History ADL: Independent History of Recent Travel: No Home Medications - Allergies Allergies/Adverse Reactions: Allergies Allergy/AdvReac Type Severity Reaction Status Date / Time No Known Drug Allergies Allergy Verified 11/08/16 05:53 pollen and dust Allergy Mild Itching Uncoded 11/08/16 05:53 weeds Allergy Mild Uncoded 11/08/16 05:53 - Home Medications Home Medications: Ambulatory Orders ASA - 81 mg PO DAILY 11/08/16 Hctz - 12.5 mg PO DAILY 11/08/16 Metformin Xr 100 mg PO 11/08/16 Novolog Flexpen SQ ACHS 11/08/16 Ranexa 500 mg PO DAILY 11/08/16 Family Disease History - Family Disease History Family Disease History: Diabetes: Mother (decd age 84 from dm), Heart Disease: Father (decd age 50s hx mi), Mother, Brother (8 brothers, 1 dec'd age 60s from ca), Other: Grandparent (all decd natural causes), Father, Brother, Sister (3 all a&w), Son (has 4 a&w), Daughter (2 a&w) Physical Examination Vital Signs: Vital Signs Temperature 100.4 F H 11/08/16 22:01 Pulse Rate 92 H 11/08/16 22:01 Respiratory Rate 20 11/09/16 00:20 Blood Pressure 107/71 11/08/16 22:01 O2 Sat by Pulse Oximetry (%) 100 11/08/16 22:12 Labs: CBC, BMP 11/08/16 15:30 11/08/16 17:55 Problem List - Problems (1) DKA (diabetic ketoacidosis) Code(s): E13.10 - OTH DIABETES MELLITUS WITH KETOACIDOSIS WITHOUT COMA (2) Sepsis Code(s): A41.9 - SEPSIS, UNSPECIFIED ORGANISM (3) HTN (hypertension) Code(s): I10 - ESSENTIAL (PRIMARY) HYPERTENSION (4) HIV (human immunodeficiency virus infection) Code(s): Z21 - ASYMPTOMATIC HUMAN IMMUNODEFICIENCY VIRUS INFECTION STATUS
[2016-11-09] MEDS: PIPERACILLIN/TAZOB 2.25 GM 50 ML IVPB SCH ×3 (01:18→17:36)
[2016-11-09 01:29] LABS: OSMOLALITY,SERUM 325 mosm/kg (278-305)
[2016-11-09] MEDS ORDERED: METHADONE HCL 10 MG/1 ML (20ML VIAL) IM SCH (06:00)
[2016-11-09 06:29] LABS: BASOPHIL 0.3 % (0-2.0); EOSINOPHIL 0.3 % (0-4.5); MCH 29.9 pg (25.7-33.7); MCHC 33.3 g/dl (32.0-35.9); MEAN CELL VOLUME 89.9 fl (80-96); MEAN PLT VOLUME 10.8 fl (7.5-11.1); NEUTROPHILS 66.5 % (42.8-82.8); PLATELET COUNT 69 K/MM3 (134-434); RDW 14.1 % (11.9-15.9); WHITE BLOOD COUNT 7.8 K/mm3 (4.0-10.0)
[2016-11-09] MEDS: HEPARIN NA (PORCINE) 5,000 UNITS/ML 1ML VIAL SQ SCH (06:32)
[2016-11-09 06:48] LABS: CALCIUM 7.8 mg/dL (8.5-10.1); CREATININE 1.8 mg/dL (0.7-1.3); MAGNESIUM 2.1 mg/dL (1.8-2.4)
[2016-11-09 07:47] LABS: ARTERIAL BLD GAS O2 SATURATION 98.9 % (90-98.9); ARTERIAL BLOOD GAS BASE EXCESS 0.4 meq/l (-2-2); ARTERIAL BLOOD GAS HCO3 24.3 meq/L (22-26); ARTERIAL BLOOD GAS pH 7.42 (7.35-7.45)
[2016-11-09 07:48] LABS: ALLENS TEST POSITIVE; ART PUNCT SITE RIGHT RADIAL; LPM/O2% 30%; MECH. VENT. Y; PT. ON O2? YES; TYPE OF O2 VENT
[2016-11-09 07:49] LABS: VENT RATE 20; VT/PRESS 400
[2016-11-09] MEDS ORDERED: PROPOFOL 100 ML ONE (08:10)
--- NOTE | 2016-11-09 08:29 | PN ---
Physical Exam: SUBJECTIVE: Patient seen and examined at bed side. extubated today. in no respiratory or acute distress no cp, sob, hdz, n/v Tmx 101.5, wbc trended down, thrombocytopenia OBJECTIVE: Vital Signs Period Temp Pulse Resp BP Sys/Foley Pulse Ox Last 24 Hr 99.1 F-100.7 F 86-116 19-24 70-123/62-89 99-100 GENERAL: The patient is awake, alert, confused oriented x0 HEAD: Normal with no signs of trauma. ENT: Ears normal, nares patent, oropharynx clear without exudates, dry mucous membranes. NECK: Trachea midline, full range of motion, supple. LUNGS: scattered rhonchi, on nc non labored breathing. HEART: tachycardic regular, ABDOMEN: Soft, nontender, nondistended, normoactive bowel sounds, no guarding, no rebound, no hepatosplenomegaly, no masses. EXTREMITIES: 2+ pulses, warm, well-perfused, no edema. SKIN: Warm, dry, normal turgor, no rashes or lesions noted Laboratory Results - last 24 hr 11/08/16 11/08/16 11/08/16 06:42 07:35 07:44 WBC RBC Hgb Hct MCV MCHC RDW Plt Count MPV Neutrophils % Lymphocytes % Monocytes % Eosinophils % Basophils % Platelet Estimate Puncture Site ABG pH ABG pCO2 at Pt Temp ABG pO2 at Pt Temp ABG HCO3 ABG O2 Sat (Measured) ABG O2 Content ABG Base Excess Dariusz Test O2 Delivery Device Oxygen Flow Rate Vent Mode Vent Rate Mechanical Rate PEEP Pressure Support Vent Sodium 133 L Potassium 4.1 Chloride 85 L D Carbon Dioxide 10 L D Anion Gap 38 H BUN 35 H Creatinine 3.1 H Creat Clearance w eGFR 20.20 POC Glucometer > 400 Random Glucose 1047 H* Serum Osmolality Lactic Acid 18.706 H* Calcium 8.8 Phosphorus Magnesium 3.0 H D Total Bilirubin 0.9 AST 52 H D ALT 28 Alkaline Phosphatase 113 Total Protein 7.0 Albumin 3.4 Urine Osmolality Ur Random Sodium Ur Random Potassium Ur Random Chloride Random Vancomycin Opiates Screen Methadone Screen Barbiturate Screen Phencyclidine Screen Ur Amphetamines Screen MDMA (Ecstasy) Screen Benzodiazepines Screen Cocaine Screen U Marijuana (THC) Screen Acetone, Qual Positive moderate 2+ 11/08/16 11/08/16 11/08/16 10:00 10:00 10:05 WBC RBC Hgb Hct MCV MCHC RDW Plt Count MPV Neutrophils % Lymphocytes % Monocytes % Eosinophils % Basophils % Platelet Estimate Puncture Site Right radial ABG pH 7.34 L D ABG pCO2 at Pt Temp 31.1 L ABG pO2 at Pt Temp 212.0 H* ABG HCO3 16.4 L ABG O2 Sat (Measured) 99.8 H* ABG O2 Content 14.3 L ABG Base Excess -7.9 L Dariusz Test Positive O2 Delivery Device Ot Oxygen Flow Rate 50% Vent Mode Ac Vent Rate 20 Mechanical Rate Esprit PEEP 5.0 Pressure Support Vent 400 Sodium 135 L Potassium 4.1 Chloride 89 L Carbon Dioxide 19 L D Anion Gap 27 H BUN 41 H Creatinine 3.2 H Creat Clearance w eGFR 19.47 POC Glucometer Random Glucose 1053 H* Serum Osmolality Lactic Acid 8.169 H* Calcium 7.9 L Phosphorus Magnesium Total Bilirubin 0.7 D AST 52 H ALT 29 Alkaline Phosphatase 82 D Total Protein 6.4 Albumin 3.0 L Urine Osmolality Ur Random Sodium Ur Random Potassium Ur Random Chloride Random Vancomycin Opiates Screen Methadone Screen Barbiturate Screen Phencyclidine Screen Ur Amphetamines Screen MDMA (Ecstasy) Screen Benzodiazepines Screen Cocaine Screen U Marijuana (THC) Screen Acetone, Qual 11/08/16 11/08/16 11/08/16 10:16 11:40 11:40 WBC RBC Hgb Hct MCV MCHC RDW Plt Count MPV Neutrophils % Lymphocytes % Monocytes % Eosinophils % Basophils % Platelet Estimate Puncture Site ABG pH ABG pCO2 at Pt Temp ABG pO2 at Pt Temp ABG HCO3 ABG O2 Sat (Measured) ABG O2 Content ABG Base Excess Dariusz Test O2 Delivery Device Oxygen Flow Rate Vent Mode Vent Rate Mechanical Rate PEEP Pressure Support Vent Sodium 138 Potassium 3.6 Chloride 98 D Carbon Dioxide 21 Anion Gap 19 H BUN 37 H Creatinine 2.8 H Creat Clearance w eGFR POC Glucometer > 400 Random Glucose 810 H* D Serum Osmolality Lactic Acid 6.697 H* Calcium 7.5 L Phosphorus Magnesium Total Bilirubin AST ALT Alkaline Phosphatase Total Protein Albumin Urine Osmolality Ur Random Sodium Ur Random Potassium Ur Random Chloride Random Vancomycin Opiates Screen Methadone Screen Barbiturate Screen Phencyclidine Screen Ur Amphetamines Screen MDMA (Ecstasy) Screen Benzodiazepines Screen Cocaine Screen U Marijuana (THC) Screen Acetone, Qual 0311/08/16 11/08/16 11:54 14:03 14:56 WBC RBC Hgb Hct MCV MCHC RDW Plt Count MPV Neutrophils % Lymphocytes % Monocytes % Eosinophils % Basophils % Platelet Estimate Puncture Site ABG pH ABG pCO2 at Pt Temp ABG pO2 at Pt Temp ABG HCO3 ABG O2 Sat (Measured) ABG O2 Content ABG Base Excess Dariusz Test O2 Delivery Device Oxygen Flow Rate Vent Mode Vent Rate Mechanical Rate PEEP Pressure Support Vent Sodium Potassium Chloride Carbon Dioxide Anion Gap BUN Creatinine Creat Clearance w eGFR POC Glucometer > 400 > 400 > 400 Random Glucose Serum Osmolality Lactic Acid Calcium Phosphorus Magnesium Total Bilirubin AST ALT Alkaline Phosphatase Total Protein Albumin Urine Osmolality Ur Random Sodium Ur Random Potassium Ur Random Chloride Random Vancomycin Opiates Screen Methadone Screen Barbiturate Screen Phencyclidine Screen Ur Amphetamines Screen MDMA (Ecstasy) Screen Benzodiazepines Screen Cocaine Screen U Marijuana (THC) Screen Acetone, Qual 11/08/16 11/08/16 11/08/16 15:00 15:00 15:30 WBC RBC Hgb Hct MCV MCHC RDW Plt Count MPV Neutrophils % Lymphocytes % Monocytes % Eosinophils % Basophils % Platelet Estimate Puncture Site ABG pH ABG pCO2 at Pt Temp ABG pO2 at Pt Temp ABG HCO3 ABG O2 Sat (Measured) ABG O2 Content ABG Base Excess Dariusz Test O2 Delivery Device Oxygen Flow Rate Vent Mode Vent Rate Mechanical Rate PEEP Pressure Support Vent Sodium Potassium Chloride Carbon Dioxide Anion Gap BUN Creatinine Creat Clearance w eGFR POC Glucometer Random Glucose Serum Osmolality Lactic Acid 6.096 H* Calcium Phosphorus Magnesium Total Bilirubin AST ALT Alkaline Phosphatase Total Protein Albumin Urine Osmolality Ur Random Sodium 66 Ur Random Potassium 22.4 Ur Random Chloride 66 Random Vancomycin Opiates Screen Positive Methadone Screen Positive Barbiturate Screen Negative Phencyclidine Screen Negative Ur Amphetamines Screen Negative MDMA (Ecstasy) Screen Negative Benzodiazepines Screen Negative Cocaine Screen Negative U Marijuana (THC) Screen Negative Acetone, Qual 11/08/16 11/08/16 11/08/16 15:30 15:30 15:30 WBC 7.6 D RBC 3.03 L Hgb 9.0 L D Hct 27.4 L D MCV 90.3 MCHC 33.0 D RDW 14.0 D Plt Count 95 L D MPV 10.1 D Neutrophils % 82.8 D Lymphocytes % 12.8 Monocytes % 3.8 Eosinophils % 0.5 D Basophils % 0.1 Platelet Estimate Decreased Puncture Site ABG pH ABG pCO2 at Pt Temp ABG pO2 at Pt Temp ABG HCO3 ABG O2 Sat (Measured) ABG O2 Content ABG Base Excess Dariusz Test O2 Delivery Device Oxygen Flow Rate Vent Mode Vent Rate Mechanical Rate PEEP Pressure Support Vent Sodium 147 H Potassium 3.2 L Chloride 109 H D Carbon Dioxide 24 Anion Gap 14 BUN 29 H D Creatinine 2.2 H D Creat Clearance w eGFR POC Glucometer Random Glucose 356 H* D Serum Osmolality 325 H Lactic Acid Calcium 7.2 L Phosphorus 0.7 L* Magnesium 2.3 D Total Bilirubin AST ALT Alkaline Phosphatase Total Protein Albumin Urine Osmolality 652 Ur Random Sodium Ur Random Potassium Ur Random Chloride Random Vancomycin Opiates Screen Methadone Screen Barbiturate Screen Phencyclidine Screen Ur Amphetamines Screen MDMA (Ecstasy) Screen Benzodiazepines Screen Cocaine Screen U Marijuana (THC) Screen Acetone, Qual 11/08/16 11/08/16 11/08/16 16:00 17:33 17:55 WBC RBC Hgb Hct MCV MCHC RDW Plt Count MPV Neutrophils % Lymphocytes % Monocytes % Eosinophils % Basophils % Platelet Estimate Puncture Site ABG pH ABG pCO2 at Pt Temp ABG pO2 at Pt Temp ABG HCO3 ABG O2 Sat (Measured) ABG O2 Content ABG Base Excess Dariusz Test O2 Delivery Device Oxygen Flow Rate Vent Mode Vent Rate Mechanical Rate PEEP Pressure Support Vent Sodium 149 H Potassium 3.2 L Chloride 113 H Carbon Dioxide 24 Anion Gap 12 BUN 26 H Creatinine 1.9 H Creat Clearance w eGFR POC Glucometer > [phone] Random Glucose 90 D Serum Osmolality Lactic Acid Calcium 7.7 L Phosphorus 1.0 L* D Magnesium 2.2 Total Bilirubin AST ALT Alkaline Phosphatase Total Protein Albumin Urine Osmolality Ur Random Sodium Ur Random Potassium Ur Random Chloride Random Vancomycin Opiates Screen Methadone Screen Barbiturate Screen Phencyclidine Screen Ur Amphetamines Screen MDMA (Ecstasy) Screen Benzodiazepines Screen Cocaine Screen U Marijuana (THC) Screen Acetone, Qual 11/08/16 11/08/16 11/08/16 17:55 18:41 19:55 WBC RBC Hgb Hct MCV MCHC RDW Plt Count MPV Neutrophils % Lymphocytes % Monocytes % Eosinophils % Basophils % Platelet Estimate Puncture Site ABG pH ABG pCO2 at Pt Temp ABG pO2 at Pt Temp ABG HCO3 ABG O2 Sat (Measured) ABG O2 Content ABG Base Excess Dariusz Test O2 Delivery Device Oxygen Flow Rate Vent Mode Vent Rate Mechanical Rate PEEP Pressure Support Vent Sodium Potassium Chloride Carbon Dioxide Anion Gap BUN Creatinine Creat Clearance w eGFR POC Glucometer 185.12869 113.63608 Random Glucose Serum Osmolality Lactic Acid 3.750 H* Calcium Phosphorus Magnesium Total Bilirubin AST ALT Alkaline Phosphatase Total Protein Albumin Urine Osmolality Ur Random Sodium Ur Random Potassium Ur Random Chloride Random Vancomycin Opiates Screen Methadone Screen Barbiturate Screen Phencyclidine Screen Ur Amphetamines Screen MDMA (Ecstasy) Screen Benzodiazepines Screen Cocaine Screen U Marijuana (THC) Screen Acetone, Qual 11/08/16 11/09/16 11/09/16 22:04 00:19 01:55 WBC RBC Hgb Hct MCV MCHC RDW Plt Count MPV Neutrophils % Lymphocytes % Monocytes % Eosinophils % Basophils % Platelet Estimate Puncture Site ABG pH ABG pCO2 at Pt Temp ABG pO2 at Pt Temp ABG HCO3 ABG O2 Sat (Measured) ABG O2 Content ABG Base Excess Dariusz Test O2 Delivery Device Oxygen Flow Rate Vent Mode Vent Rate Mechanical Rate PEEP Pressure Support Vent Sodium Potassium Chloride Carbon Dioxide Anion Gap BUN Creatinine Creat Clearance w eGFR POC Glucometer 77.70099 133.18930 245.14389 Random Glucose Serum Osmolality Lactic Acid Calcium Phosphorus Magnesium Total Bilirubin AST ALT Alkaline Phosphatase Total Protein Albumin Urine Osmolality Ur Random Sodium Ur Random Potassium Ur Random Chloride Random Vancomycin Opiates Screen Methadone Screen Barbiturate Screen Phencyclidine Screen Ur Amphetamines Screen MDMA (Ecstasy) Screen Benzodiazepines Screen Cocaine Screen U Marijuana (THC) Screen Acetone, Qual 11/09/16 11/09/16 11/09/16 04:00 05:05 05:05 WBC RBC Hgb Hct MCV MCHC RDW Plt Count MPV Neutrophils % Lymphocytes % Monocytes % Eosinophils % Basophils % Platelet Estimate Puncture Site ABG pH ABG pCO2 at Pt Temp ABG pO2 at Pt Temp ABG HCO3 ABG O2 Sat (Measured) ABG O2 Content ABG Base Excess Dariusz Test O2 Delivery Device Oxygen Flow Rate Vent Mode Vent Rate Mechanical Rate PEEP Pressure Support Vent Sodium Potassium Chloride Carbon Dioxide Anion Gap BUN Creatinine Creat Clearance w eGFR POC Glucometer 91.94270 Random Glucose Serum Osmolality 304 Lactic Acid Calcium Phosphorus Magnesium Total Bilirubin AST ALT Alkaline Phosphatase Total Protein Albumin Urine Osmolality Ur Random Sodium Ur Random Potassium Ur Random Chloride Random Vancomycin 7.190 Opiates Screen Methadone Screen Barbiturate Screen Phencyclidine Screen Ur Amphetamines Screen MDMA (Ecstasy) Screen Benzodiazepines Screen Cocaine Screen U Marijuana (THC) Screen Acetone, Qual 11/09/16 11/09/16 11/09/16 05:05 05:05 07:25 WBC 7.8 RBC 3.38 L Hgb 10.1 L D Hct 30.4 L MCV 89.9 MCHC 33.3 RDW 14.1 Plt Count 69 L D MPV 10.8 Neutrophils % 66.5 Lymphocytes % 22.1 D Monocytes % 10.8 H D Eosinophils % 0.3 Basophils % 0.3 Platelet Estimate Puncture Site Right radial ABG pH 7.42 ABG pCO2 at Pt Temp 38.3 D ABG pO2 at Pt Temp 117.0 H D ABG HCO3 24.3 ABG O2 Sat (Measured) 98.9 ABG O2 Content 13.8 L ABG Base Excess 0.4 Dariusz Test Positive O2 Delivery Device Vent Oxygen Flow Rate 30% Vent Mode A/c Vent Rate 20 Mechanical Rate Y PEEP 5.0 Pressure Support Vent 400 Sodium 148 H Potassium 3.3 L Chloride 113 H Carbon Dioxide 26 Anion Gap 9 BUN 23 H Creatinine 1.8 H Creat Clearance w eGFR POC Glucometer Random Glucose 56 L D Serum Osmolality Lactic Acid Calcium 7.8 L Phosphorus Magnesium 2.1 Total Bilirubin AST ALT Alkaline Phosphatase Total Protein Albumin Urine Osmolality Ur Random Sodium Ur Random Potassium Ur Random Chloride Random Vancomycin Opiates Screen Methadone Screen Barbiturate Screen Phencyclidine Screen Ur Amphetamines Screen MDMA (Ecstasy) Screen Benzodiazepines Screen Cocaine Screen U Marijuana (THC) Screen Acetone, Qual Active Medications Generic Name Dose Route Start Last Admin Trade Name Freq PRN Reason Stop Dose Admin Heparin Sodium (Porcine) 5,000 unit 11/08/16 14:00 11/09/16 06:32 Heparin - SQ 5,000 unit TID LAMAR Administration Propofol 100 mls @ 1.769 mls/hr 11/08/16 06:51 11/08/16 19:00 Diprivan - IVPB 11/10/16 15:22 40 mcg/kg/min TITR ONE Titration Protocol 5 MCG/KG/MIN Piperacillin Sod/Tazobactam Sod 50 mls @ 100 mls/hr 11/08/16 13:45 11/09/16 01: 18 Zosyn 2.25gm Ivpb (Pre-Docked) IVPB 100 mls/hr Q8H-IV LAMAR Administration Protocol Pantoprazole Sodium 100 mls @ 200 mls/hr 11/08/16 22:00 11/08/16 21:22 Protonix 40mg Ivpb (Pre-Docked) IVPB 200 mls/hr BID LAMAR Administration Insulin Human Regular 100 100 mls @ 6.44 mls/hr 11/08/16 16:18 11/09/16 04:01 units/ Sodium Chloride IVPB 0.01 units/kg/hr TITR LAMAR Titration Protocol 0.1 UNITS/KG/HR Potassium Chloride/Dextrose/Sod Cl 1,000 mls @ 60 mls/hr 11/08/16 22:00 21:49 D5-1/2ns+20 Meq Kcl - IV 60 mls/hr ASDIR LAMAR Administration Potassium Chloride/Sodium Chloride 1,000 mls @ 70 mls/hr 11/08/16 22:00 1/2ns+20meq Kcl IV ASDIR LAMAR Fentanyl 500 mcg/ Dextrose 100 mls @ 5 mls/hr 11/09/16 00:45 11/09/16 01:18 IJ 5 mls/hr TITR LAMAR Administration 25 MCG/HR Methadone HCl 60 mg 11/09/16 06:00 Dolophine Injection - IM DAILY@0600 [facility] ASSESSMENT/PLAN: 66M past medical history of hypertension, HLD, hep C that was treated, and insulin-dependent diabetes on metformin and 70/30 novolog 30 units bid who presents to the ED via ambulance for lethargy and AMS. found to have BS of 1326, AG 50, lactic acid 15, +2 aceton, Found to be in DKA but intubated for respiratory distress from severe acidosis. DKA: Sever metabolic acidosis and acute respiratory Acidosis Resp failure- resolved. s/p extubation tolerating venti mask well r/o sepsis, f/u cultures Gap closed on ISS finger sticks q4h hypokalmia replete k hypophosphatemia kphos IV 30meq Pseudohyponatremia: now hypernatremia f/u urine and Bcx 1/2 NS lactic acidosis: trending down. hypotenssion: stable Sever sepsis: leukocytosis/ bandemia/hypothermia/ tachycardia/ possible sepsis/ hypotension Lactic Acidosis trend Empiric antibiotics follow cultures vanco/ zosyn adjusted for azotemia vanco levelin am Shock -resolved- Hypovolemic vs Septic IV fluids Hypothermia, possibly secondary to sepsis, currently improved. IVF and sepsis treatment as above. Acute Kidney Injury 2/2 prerenal Azotemia- hypovolemia vs sepsis vs ATN IVF Urine lytes urine osmolarity Hepatitis C carrier ID on board Heroin use: urine tox screen + opoids and methadone on chronic methadone, continue 60mg daily 6am. monitor for signs of withdrawal FEN replete electrolytes as needed NPO IV1/2 noraml saline DVT/GI prophylaxis - SCD - Pantoprazole Visit type - Emergency Visit Emergency Visit: Yes ED Registration Date: 11/08/16 Care time: The patient presented to the Emergency Department on the above date and was hospitalized for further evaluation of their emergent condition. - New Patient This patient is new to me today: Yes Date on this admission: 11/08/16 - Critical Care Critical Care patient: Yes Total Critical Care Time (in minutes): 49 Critical Care Statement: The care of this patient involved high complexity decision making to prevent further life threatening deterioration of the patient 's condition and/or to evalute & treat vital organ system(s) failure or risk of failure.
[2016-11-09] MEDS ORDERED: INSULIN DETEMIR 100 UNITS/ML MDV SQ ONE (08:31)
--- NOTE | 2016-11-09 08:38 | PN ---
Progress Note, Physician Chief Complaint: intubated, sedated on vent - Current Medication List Current Medications: Active Medications Heparin Sodium (Porcine) (Heparin -) 5,000 unit SQ TID [facility] Last Admin: 11/09/16 06:32 Dose: 5,000 unit Propofol (Diprivan -) 100 mls @ 1.769 mls/hr IVPB TITR ONE; 5 MCG/KG/MIN PRN Reason: Protocol Stop: 11/10/16 15:22 Last Titration: 11/08/16 19:00 Dose: 40 mcg/kg/min Piperacillin Sod/Tazobactam Sod (Zosyn 2.25gm Ivpb (Pre-Docked)) 50 mls @ 100 mls/hr IVPB Q8H-IV LAMAR PRN Reason: Protocol Last Admin: 11/09/16 01:18 Dose: 100 mls/hr Pantoprazole Sodium (Protonix 40mg Ivpb (Pre-Docked)) 100 mls @ 200 mls/hr IVPB BID [facility] Last Admin: 11/08/16 21:22 Dose: 200 mls/hr Insulin Human Regular 100 (units/ Sodium Chloride) 100 mls @ 6.44 mls/hr IVPB TITR LAMAR; 0.1 UNITS/KG/HR PRN Reason: Protocol Last Titration: 11/09/16 04:01 Dose: 0.01 units/kg/hr Potassium Chloride/Dextrose/Sod Cl (D5-1/2ns+20 Meq Kcl -) 1,000 mls @ 60 mls/ hr IV ASDIR LAMAR Last Admin: 11/08/16 21:49 Dose: 60 mls/hr Potassium Chloride/Sodium Chloride (1/2ns+20meq Kcl) 1,000 mls @ 70 mls/hr IV ASDIR LAMAR Fentanyl 500 mcg/ Dextrose 100 mls @ 5 mls/hr IJ TITR LAMAR PRN Reason: 25 MCG/HR Last Admin: 11/09/16 01:18 Dose: 5 mls/hr Potassium Chloride (Potassium Chloride 10 Meq Premix Ivpb -) 100 mls @ 100 mls/ hr IVPB Q60M [facility] Stop: 11/09/16 11:44 Insulin Detemir (Levemir Vial) 8 units SQ ONCE ONE Stop: 11/09/16 08:32 Methadone HCl (Dolophine Injection -) 60 mg IM DAILY@0600 [facility] - Objective Vital Signs: Vital Signs Temperature 99.3 F 11/09/16 06:00 Pulse Rate 86 11/09/16 06:00 Respiratory Rate 20 11/09/16 07:54 Blood Pressure 107/89 11/09/16 06:00 O2 Sat by Pulse Oximetry (%) 100 11/09/16 07:54 HENT: Yes: Other (+ ETT) Cardiovascular: Yes: Regular Rate and Rhythm Respiratory: Yes: Other (= breath sounds b/l) Gastrointestinal: Yes: Soft Edema: No Labs: CBC, BMP 11/09/16 05:05 11/09/16 05:05 INR, PTT INR 1.09 (0.82-1.09) 11/08/16 05:42 Microbiology 11/08/16 06:47 Blood - Peripheral Venous Blood Culture - Preliminary NO GROWTH OBTAINED AFTER 24 HOURS, INCUBATION TO CONTINUE FOR 4 DAYS. 11/08/16 06:47 Blood - Peripheral Venous Blood Culture - Preliminary NO GROWTH OBTAINED AFTER 24 HOURS, INCUBATION TO CONTINUE FOR 4 DAYS. - ....Imaging EKG: Image Reviewed (TELE: NSR) Assessment/Plan Assessment/Plan 66 year old man h/o HIV, HTN, HLD, HCV, DM II admitted with AMS, SOB, found to be in DKA, intubated for airway progression. Pt. has a history of a "cardiomyopathy" as per PMD notes but unknown details. Respiratory failure-secondary to DKA -as per CCM -no sign of CHF clinically or on imaging -can check echo today given reported history of unknown "cardiomyopathy" -would not diurese at this time HTN-hypotensive on admission -hold anti-HTN meds
[2016-11-09] MEDS ORDERED: PROPOFOL 100 ML IVPUSH SCH (08:45)
[2016-11-09] MEDS: KCL 10 MEQ IVPB 100 ML IVPB SCH ×3 (09:43→11:39)
[2016-11-09] MEDS: PANTOPRAZOLE SODIUM 100 ML IVPB SCH ×2 (10:29→21:31)
[2016-11-09 11:16] LABS: PHOSPHOROUS 1.9 mg/dL (2.5-4.9)
[2016-11-09] MEDS ORDERED: METHADONE HCL 10 MG TABLET PO SCH (14:15)
[2016-11-09] MEDS: METHADONE 40 MG, METHADONE 20 MG PO SCH (14:47)
--- NOTE | 2016-11-09 14:49 | PN ---
Teaching Attending Note Name of Resident: Michelle Anna ATTENDING PHYSICIAN STATEMENT I saw and evaluated the patient. I reviewed the resident's note and discussed the case with the resident. I agree with the resident's findings and plan as documented. SUBJECTIVE: Pt seen and examined in the ICU. Remains intubated and sedated. No Pressors. AC Mode of vent. IO in place right pinto. Intake & Output 11/06/16 11/07/16 11/08/16 11/09/16 23:59 23:59 23:59 23:59 Intake Total 5852 1001 Output Total 2700 800 Balance 3152 201 Weight 142 lb 151 lb 7.321 oz Last Vital Signs Temp Pulse Resp BP Pulse Ox 101.0 F H 98 H 20 141/92 100 11/09/16 14:00 11/09/16 14:00 11/09/16 14:00 11/09/16 14:00 11/09/16 11:58 Active Medications Propofol (Diprivan -) 100 mls @ 1.769 mls/hr IVPB TITR ONE; 5 MCG/KG/MIN PRN Reason: Protocol Stop: 11/10/16 15:22 Last Titration: 11/08/16 19:00 Dose: 40 mcg/kg/min Piperacillin Sod/Tazobactam Sod (Zosyn 2.25gm Ivpb (Pre-Docked)) 50 mls @ 100 mls/hr IVPB Q8H-IV LAMAR PRN Reason: Protocol Last Admin: 11/09/16 09:55 Dose: 100 mls/hr Pantoprazole Sodium (Protonix 40mg Ivpb (Pre-Docked)) 100 mls @ 200 mls/hr IVPB BID LAMAR Last Admin: 11/09/16 10:29 Dose: 200 mls/hr Insulin Human Regular 100 (units/ Sodium Chloride) 100 mls @ 6.44 mls/hr IVPB TITR LAMAR; 0.1 UNITS/KG/HR PRN Reason: Protocol Last Titration: 11/09/16 09:43 Dose: 0 units/kg/hr Potassium Chloride/Dextrose/Sod Cl (D5-1/2ns+20 Meq Kcl -) 1,000 mls @ 60 mls/ hr IV ASDIR LAMAR Last Admin: 11/08/16 21:49 Dose: 60 mls/hr Potassium Chloride/Sodium Chloride (1/2ns+20meq Kcl) 1,000 mls @ 70 mls/hr IV ASDIR LAMAR Propofol (Diprivan -) 100 mls @ 2.061 mls/hr IVPUSH TITR LAMAR; 5 MCG/KG/MIN PRN Reason: Protocol Last Titration: 11/09/16 11:03 Dose: 0 mcg/kg/min Methadone HCl 40 mg/ Methadone (HCl 20 mg) 60 mg PO DAILY@0600 LAMAR Last Admin: 11/09/16 14:47 Dose: Not Given Methadone HCl (Dolophine Injection -) 30 mg IM ONCE ONE Stop: 11/09/16 14:14 Gen: intubated, sedated Heart: tachycardic, regular Lung: decreased breath sounds at the bases Abd: soft, nontender Ext: no edema Laboratory Results - last 24 hr 11/08/16 11/08/16 11/08/16 14:03 14:56 15:00 WBC RBC Hgb Hct MCV MCHC RDW Plt Count MPV Neutrophils % Lymphocytes % Monocytes % Eosinophils % Basophils % Platelet Estimate Puncture Site ABG pH ABG pCO2 at Pt Temp ABG pO2 at Pt Temp ABG HCO3 ABG O2 Sat (Measured) ABG O2 Content ABG Base Excess Dariusz Test O2 Delivery Device Oxygen Flow Rate Vent Mode Vent Rate Mechanical Rate PEEP Pressure Support Vent Sodium Potassium Chloride Carbon Dioxide Anion Gap BUN Creatinine POC Glucometer > 400 > 400 Random Glucose Hemoglobin A1c % Serum Osmolality Lactic Acid Calcium Phosphorus Magnesium Urine Osmolality Ur Random Sodium 66 Ur Random Potassium 22.4 Ur Random Chloride 66 Random Vancomycin Opiates Screen Methadone Screen Barbiturate Screen Phencyclidine Screen Ur Amphetamines Screen MDMA (Ecstasy) Screen Benzodiazepines Screen Cocaine Screen U Marijuana (THC) Screen 11/08/16 11/08/16 11/08/16 15:00 15:30 15:30 WBC RBC Hgb Hct MCV MCHC RDW Plt Count MPV Neutrophils % Lymphocytes % Monocytes % Eosinophils % Basophils % Platelet Estimate Puncture Site ABG pH ABG pCO2 at Pt Temp ABG pO2 at Pt Temp ABG HCO3 ABG O2 Sat (Measured) ABG O2 Content ABG Base Excess Dariusz Test O2 Delivery Device Oxygen Flow Rate Vent Mode Vent Rate Mechanical Rate PEEP Pressure Support Vent Sodium Potassium Chloride Carbon Dioxide Anion Gap BUN Creatinine POC Glucometer Random Glucose Hemoglobin A1c % Serum Osmolality 325 H Lactic Acid 6.096 H* Calcium Phosphorus Magnesium Urine Osmolality 652 Ur Random Sodium Ur Random Potassium Ur Random Chloride Random Vancomycin Opiates Screen Positive Methadone Screen Positive Barbiturate Screen Negative Phencyclidine Screen Negative Ur Amphetamines Screen Negative MDMA (Ecstasy) Screen Negative Benzodiazepines Screen Negative Cocaine Screen Negative U Marijuana (THC) Screen Negative 11/08/16 11/08/16 11/08/16 15:30 15:30 16:00 WBC 7.6 D RBC 3.03 L Hgb 9.0 L D Hct 27.4 L D MCV 90.3 MCHC 33.0 D RDW 14.0 D Plt Count 95 L D MPV 10.1 D Neutrophils % 82.8 D Lymphocytes % 12.8 Monocytes % 3.8 Eosinophils % 0.5 D Basophils % 0.1 Platelet Estimate Decreased Puncture Site ABG pH ABG pCO2 at Pt Temp ABG pO2 at Pt Temp ABG HCO3 ABG O2 Sat (Measured) ABG O2 Content ABG Base Excess Dariusz Test O2 Delivery Device Oxygen Flow Rate Vent Mode Vent Rate Mechanical Rate PEEP Pressure Support Vent Sodium 147 H Potassium 3.2 L Chloride 109 H D Carbon Dioxide 24 Anion Gap 14 BUN 29 H D Creatinine 2.2 H D POC Glucometer > 400 Random Glucose 356 H* D Hemoglobin A1c % Serum Osmolality Lactic Acid Calcium 7.2 L Phosphorus 0.7 L* Magnesium 2.3 D Urine Osmolality Ur Random Sodium Ur Random Potassium Ur Random Chloride Random Vancomycin Opiates Screen Methadone Screen Barbiturate Screen Phencyclidine Screen Ur Amphetamines Screen MDMA (Ecstasy) Screen Benzodiazepines Screen Cocaine Screen U Marijuana (THC) Screen 11/08/16 11/08/16 11/08/16 17:33 17:55 17:55 WBC RBC Hgb Hct MCV MCHC RDW Plt Count MPV Neutrophils % Lymphocytes % Monocytes % Eosinophils % Basophils % Platelet Estimate Puncture Site ABG pH ABG pCO2 at Pt Temp ABG pO2 at Pt Temp ABG HCO3 ABG O2 Sat (Measured) ABG O2 Content ABG Base Excess Dariusz Test O2 Delivery Device Oxygen Flow Rate Vent Mode Vent Rate Mechanical Rate PEEP Pressure Support Vent Sodium 149 H Potassium 3.2 L Chloride 113 H Carbon Dioxide 24 Anion Gap 12 BUN 26 H Creatinine 1.9 H POC Glucometer 278.55910 Random Glucose 90 D Hemoglobin A1c % Serum Osmolality Lactic Acid 3.750 H* Calcium 7.7 L Phosphorus 1.0 L* D Magnesium 2.2 Urine Osmolality Ur Random Sodium Ur Random Potassium Ur Random Chloride Random Vancomycin Opiates Screen Methadone Screen Barbiturate Screen Phencyclidine Screen Ur Amphetamines Screen MDMA (Ecstasy) Screen Benzodiazepines Screen Cocaine Screen U Marijuana (THC) Screen 11/08/16 11/08/16 11/08/16 18:41 19:55 22:04 WBC RBC Hgb Hct MCV MCHC RDW Plt Count MPV Neutrophils % Lymphocytes % Monocytes % Eosinophils % Basophils % Platelet Estimate Puncture Site ABG pH ABG pCO2 at Pt Temp ABG pO2 at Pt Temp ABG HCO3 ABG O2 Sat (Measured) ABG O2 Content ABG Base Excess Dariusz Test O2 Delivery Device Oxygen Flow Rate Vent Mode Vent Rate Mechanical Rate PEEP Pressure Support Vent Sodium Potassium Chloride Carbon Dioxide Anion Gap BUN Creatinine POC Glucometer 185.31688 113.58050 77.19857 Random Glucose Hemoglobin A1c % Serum Osmolality Lactic Acid Calcium Phosphorus Magnesium Urine Osmolality Ur Random Sodium Ur Random Potassium Ur Random Chloride Random Vancomycin Opiates Screen Methadone Screen Barbiturate Screen Phencyclidine Screen Ur Amphetamines Screen MDMA (Ecstasy) Screen Benzodiazepines Screen Cocaine Screen U Marijuana (THC) Screen 11/09/16 11/09/16 11/09/16 00:19 01:55 04:00 WBC RBC Hgb Hct MCV MCHC RDW Plt Count MPV Neutrophils % Lymphocytes % Monocytes % Eosinophils % Basophils % Platelet Estimate Puncture Site ABG pH ABG pCO2 at Pt Temp ABG pO2 at Pt Temp ABG HCO3 ABG O2 Sat (Measured) ABG O2 Content ABG Base Excess Dariusz Test O2 Delivery Device Oxygen Flow Rate Vent Mode Vent Rate Mechanical Rate PEEP Pressure Support Vent Sodium Potassium Chloride Carbon Dioxide Anion Gap BUN Creatinine POC Glucometer 133.56826 245.13522 91.25869 Random Glucose Hemoglobin A1c % Serum Osmolality Lactic Acid Calcium Phosphorus Magnesium Urine Osmolality Ur Random Sodium Ur Random Potassium Ur Random Chloride Random Vancomycin Opiates Screen Methadone Screen Barbiturate Screen Phencyclidine Screen Ur Amphetamines Screen MDMA (Ecstasy) Screen Benzodiazepines Screen Cocaine Screen U Marijuana (THC) Screen 11/09/16 11/09/16 11/09/16 05:05 05:05 05:05 WBC RBC Hgb Hct MCV MCHC RDW Plt Count MPV Neutrophils % Lymphocytes % Monocytes % Eosinophils % Basophils % Platelet Estimate Puncture Site ABG pH ABG pCO2 at Pt Temp ABG pO2 at Pt Temp ABG HCO3 ABG O2 Sat (Measured) ABG O2 Content ABG Base Excess Dariusz Test O2 Delivery Device Oxygen Flow Rate Vent Mode Vent Rate Mechanical Rate PEEP Pressure Support Vent Sodium 148 H Potassium 3.3 L Chloride 113 H Carbon Dioxide 26 Anion Gap 9 BUN 23 H Creatinine 1.8 H POC Glucometer Random Glucose 56 L D Hemoglobin A1c % Serum Osmolality 304 Lactic Acid Calcium 7.8 L Phosphorus 1.9 L D Magnesium 2.1 Urine Osmolality Ur Random Sodium Ur Random Potassium Ur Random Chloride Random Vancomycin 7.190 Opiates Screen Methadone Screen Barbiturate Screen Phencyclidine Screen Ur Amphetamines Screen MDMA (Ecstasy) Screen Benzodiazepines Screen Cocaine Screen U Marijuana (THC) Screen 11/09/16 11/09/16 11/09/16 05:05 05:05 06:25 WBC 7.8 RBC 3.38 L Hgb 10.1 L D Hct 30.4 L MCV 89.9 MCHC 33.3 RDW 14.1 Plt Count 69 L D MPV 10.8 Neutrophils % 66.5 Lymphocytes % 22.1 D Monocytes % 10.8 H D Eosinophils % 0.3 Basophils % 0.3 Platelet Estimate Puncture Site ABG pH ABG pCO2 at Pt Temp ABG pO2 at Pt Temp ABG HCO3 ABG O2 Sat (Measured) ABG O2 Content ABG Base Excess Dariusz Test O2 Delivery Device Oxygen Flow Rate Vent Mode Vent Rate Mechanical Rate PEEP Pressure Support Vent Sodium Potassium Chloride Carbon Dioxide Anion Gap BUN Creatinine POC Glucometer 91.33983 Random Glucose Hemoglobin A1c % 11.6 H D Serum Osmolality Lactic Acid Calcium Phosphorus Magnesium Urine Osmolality Ur Random Sodium Ur Random Potassium Ur Random Chloride Random Vancomycin Opiates Screen Methadone Screen Barbiturate Screen Phencyclidine Screen Ur Amphetamines Screen MDMA (Ecstasy) Screen Benzodiazepines Screen Cocaine Screen U Marijuana (THC) Screen 11/09/16 11/09/16 11/09/16 07:25 08:18 10:07 WBC RBC Hgb Hct MCV MCHC RDW Plt Count MPV Neutrophils % Lymphocytes % Monocytes % Eosinophils % Basophils % Platelet Estimate Puncture Site Right radial ABG pH 7.42 ABG pCO2 at Pt Temp 38.3 D ABG pO2 at Pt Temp 117.0 H D ABG HCO3 24.3 ABG O2 Sat (Measured) 98.9 ABG O2 Content 13.8 L ABG Base Excess 0.4 Dariusz Test Positive O2 Delivery Device Vent Oxygen Flow Rate 30% Vent Mode A/c Vent Rate 20 Mechanical Rate Y PEEP 5.0 Pressure Support Vent 400 Sodium Potassium Chloride Carbon Dioxide Anion Gap BUN Creatinine POC Glucometer 120.24262 109.61987 Random Glucose Hemoglobin A1c % Serum Osmolality Lactic Acid Calcium Phosphorus Magnesium Urine Osmolality Ur Random Sodium Ur Random Potassium Ur Random Chloride Random Vancomycin Opiates Screen Methadone Screen Barbiturate Screen Phencyclidine Screen Ur Amphetamines Screen MDMA (Ecstasy) Screen Benzodiazepines Screen Cocaine Screen U Marijuana (THC) Screen 11/09/16 11/09/16 10:45 12:35 WBC RBC Hgb Hct MCV MCHC RDW Plt Count MPV Neutrophils % Lymphocytes % Monocytes % Eosinophils % Basophils % Platelet Estimate Puncture Site ABG pH ABG pCO2 at Pt Temp ABG pO2 at Pt Temp ABG HCO3 ABG O2 Sat (Measured) ABG O2 Content ABG Base Excess Dariusz Test O2 Delivery Device Oxygen Flow Rate Vent Mode Vent Rate Mechanical Rate PEEP Pressure Support Vent Sodium Potassium Chloride Carbon Dioxide Anion Gap BUN Creatinine POC Glucometer [phone] Random Glucose Hemoglobin A1c % Serum Osmolality Lactic Acid 1.812 Calcium Phosphorus Magnesium Urine Osmolality Ur Random Sodium Ur Random Potassium Ur Random Chloride Random Vancomycin Opiates Screen Methadone Screen Barbiturate Screen Phencyclidine Screen Ur Amphetamines Screen MDMA (Ecstasy) Screen Benzodiazepines Screen Cocaine Screen U Marijuana (THC) Screen ASSESSMENT AND PLAN: Diabetic Ketoacidosis/HHNK overlap Severe Metabolic Acidosis Acute Respiratory Acidosis r/o Sepsis Lactic Acidosis Pseudohyponatremia Acute Kidney Injury Shock - Hypovolemic vs Septic - SBTs - IVF - ABX per ID - f/u cultures - insulin coverage - monitor BMP, BGM - replete lytes - DVT/GI prophylaxis - D/C IO Dr Macdonald CCTime 35"
[2016-11-09] MEDS ORDERED: METHADONE HCL 10 MG/1 ML (20ML VIAL) IM ONE (15:00)
[2016-11-09] MEDS ORDERED: ACETAMINOPHEN 1000 MG/100 ML VIAL (NON FORMULARY) IVPB PRN (15:06)
[2016-11-09] MEDS ORDERED: VANCOMYCIN 1,000 MG in DEXTROSE 5%-WATER - 250 ML IVPB ONE (15:50)
--- NOTE | 2016-11-09 15:50 | PN ---
Progress Note, Physician History of Present Illness: Extubated No acute distress Remains febrile WBC improved Cultures negative Worsening thrombocytopenia - Current Medication List Current Medications: Active Medications Acetaminophen (Ofirmev Injection -) 1,000 mg IVPB Q6H PRN PRN Reason: FEVER OR PAIN Stop: 11/10/16 09:07 Piperacillin Sod/Tazobactam Sod (Zosyn 2.25gm Ivpb (Pre-Docked)) 50 mls @ 100 mls/hr IVPB Q8H-IV LAMAR PRN Reason: Protocol Last Admin: 11/09/16 09:55 Dose: 100 mls/hr Pantoprazole Sodium (Protonix 40mg Ivpb (Pre-Docked)) 100 mls @ 200 mls/hr IVPB BID LAMAR Last Admin: 11/09/16 10:29 Dose: 200 mls/hr Potassium Chloride/Dextrose/Sod Cl (D5-1/2ns+20 Meq Kcl -) 1,000 mls @ 60 mls/ hr IV ASDIR LAMAR Last Admin: 11/08/16 21:49 Dose: 60 mls/hr Potassium Chloride/Sodium Chloride (1/2ns+20meq Kcl) 1,000 mls @ 70 mls/hr IV ASDIR LAMAR Potassium Phosphate 30 mm/ (Sodium Chloride) 260 mls @ 62.5 mls/hr IVPB ONCE ONE Stop: 11/09/16 19:13 Insulin Aspart (Novolog Vial) 0 units SQ ACHS LAMAR PRN Reason: Protocol Methadone HCl 40 mg/ Methadone (HCl 20 mg) 60 mg PO DAILY@0600 [facility] Last Admin: 11/09/16 14:47 Dose: Not Given - Objective Vital Signs: Vital Signs Temperature 101.0 F H 11/09/16 14:00 Pulse Rate 98 H 11/09/16 14:00 Respiratory Rate 20 11/09/16 14:00 Blood Pressure 141/92 11/09/16 14:00 O2 Sat by Pulse Oximetry (%) 100 11/09/16 15:26 Constitutional: Yes: Cachectic Eyes: Yes: Conjunctiva Clear Cardiovascular: Yes: Regular Rate and Rhythm, S1, S2 Respiratory: Yes: Diminished Gastrointestinal: Yes: Normal Bowel Sounds, Soft. No: Tenderness Edema: No Labs: CBC, BMP 11/09/16 05:05 11/09/16 05:05 INR, PTT INR 1.09 (0.82-1.09) 11/08/16 05:42 Assessment/Plan DKA Sepsis Leukocytosis- resolved Thrombocytopenia Continue zosyn Redose vancomycin
[2016-11-09] MEDS ORDERED: INSULIN (NOVOLOG) ASPART 100 UNITS/ML 10ML VIAL SQ SCH (16:30)
[2016-11-09] MEDS ORDERED: POTASSIUM PHOSPHATE 30 MM in SODIUM CHLORIDE 250 ML IVPB ONE (17:30)
[2016-11-09] MEDS ORDERED: D5-1/2NS+20 MEQ KCL - 1,000 ML IV SCH (20:45)
[2016-11-09] MEDS ORDERED: LORAZEPAM CARPU-JECT 2 MG/ML DISP.SYRIN IVPUSH ONE (21:26)
[2016-11-09] MEDS ORDERED: LORAZEPAM CARPU-JECT 2 MG/ML DISP.SYRIN ONE (21:28)
[2016-11-09] MEDS: INSULIN SLIDING SCALE (NOVOLOG) 1 VIAL SQ SCH (21:32)
[2016-11-10] MEDS: LORAZEPAM CARPU-JECT 2 MG/ML DISP.SYRIN IVPUSH PRN ×2 (00:21→02:17)
--- NOTE | 2016-11-10 01:33 | PN ---
Progress Note, Physician Chief Complaint: awake comfortable drowsy,yet hungry - Current Medication List Current Medications: Active Medications Acetaminophen (Ofirmev Injection -) 1,000 mg IVPB Q6H PRN PRN Reason: FEVER OR PAIN Stop: 11/10/16 09:07 Last Admin: 11/09/16 14:00 Dose: 1,000 mg Piperacillin Sod/Tazobactam Sod (Zosyn 2.25gm Ivpb (Pre-Docked)) 50 mls @ 100 mls/hr IVPB Q8H-IV LAMAR PRN Reason: Protocol Last Admin: 11/09/16 17:36 Dose: 100 mls/hr Pantoprazole Sodium (Protonix 40mg Ivpb (Pre-Docked)) 100 mls @ 200 mls/hr IVPB BID LAMAR Last Admin: 11/09/16 21:31 Dose: 200 mls/hr Potassium Chloride/Sodium Chloride (1/2ns+20meq Kcl) 1,000 mls @ 70 mls/hr IV ASDIR LAMAR Potassium Chloride/Dextrose/Sod Cl (D5-1/2ns+20 Meq Kcl -) 1,000 mls @ 30 mls/ hr IV ASDIR LAMAR Last Admin: 11/09/16 21:36 Dose: 30 mls/hr Insulin Aspart (Novolog Vial Sliding Scale -) 1 vial SQ ACHS LAMAR PRN Reason: Protocol Last Admin: 11/09/16 21:32 Dose: Not Given Lorazepam (Ativan Injection -) 2 mg IVPUSH Q2H PRN PRN Reason: AGITATION Last Admin: 11/10/16 00:21 Dose: 2 mg Methadone HCl 40 mg/ Methadone (HCl 20 mg) 60 mg PO DAILY@0600 [facility] Last Admin: 11/09/16 14:47 Dose: Not Given - Objective Vital Signs: Vital Signs Temperature 99.6 F 11/09/16 22:00 Pulse Rate 112 H 11/10/16 00:00 Respiratory Rate 20 11/10/16 00:00 Blood Pressure 145/92 11/10/16 00:00 O2 Sat by Pulse Oximetry (%) 100 11/09/16 20:08 Constitutional: Yes: Calm Eyes: Yes: EOM Intact HENT: Yes: WNL Neck: Yes: WNL Cardiovascular: Yes: Regular Rate and Rhythm Respiratory: Yes: WNL Gastrointestinal: Yes: Normal Bowel Sounds ...Rectal Exam: Yes: WNL Genitourinary: Yes: WNL Breast(s): Yes: WNL Musculoskeletal: Yes: WNL Extremities: Yes: WNL Edema: No Peripheral Pulses WNL: Yes Integumentary: Yes: WNL Neurological: Yes: Alert, Oriented Labs: CBC, BMP 11/09/16 05:05 11/09/16 05:05 INR, PTT INR 1.09 (0.82-1.09) 11/08/16 05:42 Problem List - Problems (1) Insulin dependent diabetes mellitus Code(s): E11.9 - TYPE 2 DIABETES MELLITUS WITHOUT COMPLICATIONS Z79.4 - NURSING HOME (CURRENT) USE OF INSULIN (2) Chronic use of opiate for therapeutic purpose Code(s): Z79.899 - OTHER FIELD CAPTAIN (CURRENT) DRUG THERAPY (3) DKA (diabetic ketoacidosis) Code(s): E13.10 - OTH DIABETES MELLITUS WITH KETOACIDOSIS WITHOUT COMA Assessment/Plan Current Active Problems DKA (diabetic ketoacidosis) (Acute) Hyper Abnormal Lab Results 11/09/16 11/09/16 11/09/16 05:05 05:05 05:05 RBC 3.38 L Hgb 10.1 L D Hct 30.4 L Plt Count 69 L D Monocytes % 10.8 H D ABG pO2 at Pt Temp ABG O2 Content Sodium 148 H Potassium 3.3 L Chloride 113 H BUN 23 H Creatinine 1.8 H Random Glucose 56 L D Hemoglobin A1c % 11.6 H D Calcium 7.8 L Phosphorus 1.9 L D 11/09/16 07:25 RBC Hgb Hct Plt Count Monocytes % ABG pO2 at Pt Temp 117.0 H D ABG O2 Content 13.8 L Sodium Potassium Chloride BUN Creatinine Random Glucose Hemoglobin A1c % Calcium Phosphorus glycemia (Acute) Insulin dependent diabetes mellitus (Chronic) sp extubation,for respiratory failure,dka plan: off insulin drip bgm q4hrs the qid novolog coverage levemir 15 units bid for long action
[2016-11-10] MEDS: PIPERACILLIN/TAZOB 2.25 GM 50 ML IVPB SCH ×2 (02:17→10:00)
[2016-11-10] MEDS: METHADONE 40 MG, METHADONE 20 MG PO SCH (06:28)
[2016-11-10] MEDS: INSULIN SLIDING SCALE (NOVOLOG) 1 VIAL SQ SCH ×4 (06:29→22:00)
[2016-11-10] MEDS: INSULIN DETEMIR 100 UNITS/ML MDV SQ SCH ×2 (06:30→17:00)
--- NOTE | 2016-11-10 07:43 | PN ---
Physical Exam: SUBJECTIVE:Patient seen and examined at bed side. extubated yesterday.saturating well but confused.Started on ativan for concern of alcohol withdrawal. Glucose 400's opening of gap. given 10 units of insulin, BG decreased to 200's and gap closed. Awake but confused. Agitated; in no acute respiratory distress on NC. no cp, sob, hdz, n/v Tmx 101.2, no leukocytoses. worsening of thrombocytopenia. blood culture negative, + yeast in sputum. Cultures negative Tele: tachy sinus Gross hematurea: s/p traumatic catheter removal by patient. bladder distention. consulted urology. patient hypertensive, developed inversion of T waves in inferior leads. hyper tension resolved after bladder distension relieved. OBJECTIVE: Vital Signs Period Temp Pulse Resp BP Sys/Foley Pulse Ox Last 24 Hr 99.6 F-101.5 F 83-112 4-28 135-165/85-102 99-100 GENERAL: The patient is awake, alert, confused oriented x0 ,agitated trying to get out of bed, wrist restraint. HEAD: Normal with no signs of trauma. ENT: Ears normal, nares patent, oropharynx clear without exudates, dry mucous membranes. NECK: Trachea midline, full range of motion, supple. LUNGS: scattered rhonchi, on nc non labored breathing. HEART: tachycardic regular, ABDOMEN: Soft, nontender, nondistended, normoactive bowel sounds, no guarding, no rebound, no hepatosplenomegaly, no masses. EXTREMITIES: 2+ pulses, warm, well-perfused, no edema. SKIN: Warm, dry, normal turgor, no rashes or lesions noted Laboratory Results - last 24 hr 11/09/16 11/09/16 11/09/16 05:05 05:05 06:25 Puncture Site ABG pH ABG pCO2 at Pt Temp ABG pO2 at Pt Temp ABG HCO3 ABG O2 Sat (Measured) ABG O2 Content ABG Base Excess Dariusz Test O2 Delivery Device Oxygen Flow Rate Vent Mode Vent Rate Mechanical Rate PEEP Pressure Support Vent POC Glucometer 91.16719 Hemoglobin A1c % 11.6 H D Lactic Acid Phosphorus 1.9 L D 11/09/16 11/09/16 11/09/16 07:25 08:18 10:07 Puncture Site Right radial ABG pH 7.42 ABG pCO2 at Pt Temp 38.3 D ABG pO2 at Pt Temp 117.0 H D ABG HCO3 24.3 ABG O2 Sat (Measured) 98.9 ABG O2 Content 13.8 L ABG Base Excess 0.4 Dariusz Test Positive O2 Delivery Device Vent Oxygen Flow Rate 30% Vent Mode A/c Vent Rate 20 Mechanical Rate Y PEEP 5.0 Pressure Support Vent 400 POC Glucometer 120.25172 109.56235 Hemoglobin A1c % Lactic Acid Phosphorus 11/09/16 11/09/16 11/09/16 10:45 12:35 16:16 Puncture Site ABG pH ABG pCO2 at Pt Temp ABG pO2 at Pt Temp ABG HCO3 ABG O2 Sat (Measured) ABG O2 Content ABG Base Excess Dariusz Test O2 Delivery Device Oxygen Flow Rate Vent Mode Vent Rate Mechanical Rate PEEP Pressure Support Vent POC Glucometer 143.70882 203.14126 Hemoglobin A1c % Lactic Acid 1.812 Phosphorus 11/09/16 21:23 Puncture Site ABG pH ABG pCO2 at Pt Temp ABG pO2 at Pt Temp ABG HCO3 ABG O2 Sat (Measured) ABG O2 Content ABG Base Excess Dariusz Test O2 Delivery Device Oxygen Flow Rate Vent Mode Vent Rate Mechanical Rate PEEP Pressure Support Vent POC Glucometer 273.01097 Hemoglobin A1c % Lactic Acid Phosphorus Active Medications Generic Name Dose Route Start Last Admin Trade Name Freq PRN Reason Stop Dose Admin Acetaminophen 1,000 mg 11/09/16 15:06 11/09/16 14:00 Ofirmev Injection - IVPB 11/10/16 09:07 1,000 mg Q6H PRN Administration FEVER OR PAIN Piperacillin Sod/Tazobactam Sod 50 mls @ 100 mls/hr 11/08/16 13:45 11/10/16 02: 17 Zosyn 2.25gm Ivpb (Pre-Docked) IVPB 100 mls/hr Q8H-IV LAMAR Administration Protocol Pantoprazole Sodium 100 mls @ 200 mls/hr 11/08/16 22:00 11/09/16 21:31 Protonix 40mg Ivpb (Pre-Docked) IVPB 200 mls/hr BID LAMAR Administration Potassium Chloride/Sodium Chloride 1,000 mls @ 70 mls/hr 11/08/16 22:00 1/2ns+20meq Kcl IV ASDIR LAMAR Potassium Chloride/Dextrose/Sod Cl 1,000 mls @ 30 mls/hr 11/09/16 20:45 21:36 D5-1/2ns+20 Meq Kcl - IV 30 mls/hr ASDIR LAMAR Administration Insulin Aspart 1 vial 11/09/16 17:09 11/10/16 06:29 Novolog Vial Sliding Scale - SQ 10 units ACHS LAMAR Administration Protocol Insulin Detemir 15 units 11/10/16 07:00 11/10/16 06:30 Levemir Vial SQ 15 units BIDI LAMAR Administration Lorazepam 2 mg 11/10/16 00:09 11/10/16 02:17 Ativan Injection - IVPUSH 2 mg Q2H PRN Administration AGITATION Methadone HCl 40 mg/ Methadone 60 mg 11/09/16 14:15 11/10/16 06:28 HCl 20 mg PO Not Given DAILY@0600 [facility] Methadone HCl 30 mg 11/10/16 07:25 Dolophine Injection - IM 11/10/16 07:26 ONCE ONE ASSESSMENT/PLAN: 66M past medical history of hypertension, HLD, hep C that was treated, and insulin-dependent diabetes on metformin and 70/30 novolog 30 units bid who presents to the ED via ambulance for lethargy and AMS. found to have BS of 1326, AG 50, lactic acid 15, +2 aceton, Found to be in DKA but intubated for respiratory distress from severe acidosis. DKA: Sever metabolic acidosis and acute respiratory Acidosis Resp failure- Gap reopened today . s/p extubation tolerating NC well r/o sepsis, f/u cultures Gap opened, BG close post 10 units insulin bolus, repeat BMP if Gap not decreased start insulin drip. on ISS levamire 1/2 dose as patient NPO finger sticks q4h repeat bmp, mag, phos Thrombocytopenia: possible B-lactam induced thrombocytopenia Discontinue zosyn, Switch to levaquin. tachy cardic and elevated BP could be secondary to pain from distention vs withdrawl vs sepsis vs DKA confusion: possibly secondary to sepsis v DKA if not improve will consider CT head. hypertension 2/2 delirium and agitation v bladder distention. labetalol IV push started norvasc 5mg, home dose 10mg daily. Start home losartan and monitor Creatinine level daily. Sever sepsis: leukocytosis/ bandemia/hypothermia/ tachycardia/ possible sepsis/ hypotension Lactic Acidosis trend Empiric antibiotics follow cultures dc zosyn Switch to levaquin. Redose vancomycin. vanco levelin am Repeat c/s for persistant temp Acute Kidney Injury 2/2 prerenal Azotemia- improving, hypovolemia vs sepsis vs ATN IVF Urine lytes urine osmolarity - monitor urine output, creatinine Gross hematurea: s/p traumatic catheter removal by patient. bladder distention. consulted urology. cardiomiopathy: some sign of fluid congestion on CXR, patient developed T wave inversions in inferior leads, cardiology made aware, and cardiac profile q8 hrs, EKG in am , cbc , bmp, mag phos sent. per cardilogy avoid ASA for now in light of gross hematurea and thrombocytopenia. most likely secondary to sepsis v DKA v demand no peripheral edema noted awaiting echo Hepatitis C carrier ID on board Heroin use: urine tox screen + opoids and methadone on chronic methadone, continue 60mg daily 6am. monitor for signs of withdrawal Alcohol withdrawl: family reports he does not drink heavily anymore and he has stopped drinking two months ago. - Ativan PRN for possible alcohol withdrawal Hypothermia, resolved. hypokalmia replete hypophosphatemia replete Pseudohyponatremia: now hypernatremia f/u urine and Bcx 1/2 NS FEN replete electrolytes as needed NPO for now due to mental status IV1/2 noraml saline DVT/GI prophylaxis - SCD - Pantoprazole Visit type - Emergency Visit Emergency Visit: Yes ED Registration Date: 11/08/16 Care time: The patient presented to the Emergency Department on the above date and was hospitalized for further evaluation of their emergent condition. - New Patient This patient is new to me today: No - Critical Care Critical Care patient: Yes Total Critical Care Time (in minutes): 56 Critical Care Statement: The care of this patient involved high complexity decision making to prevent further life threatening deterioration of the patient 's condition and/or to evalute & treat vital organ system(s) failure or risk of failure.
[2016-11-10 08:40] LABS: MCH 29.7 pg (25.7-33.7); MCHC 32.5 g/dl (32.0-35.9); MEAN CELL VOLUME 91.3 fl (80-96); MEAN PLT VOLUME 10.7 fl (7.5-11.1); PLATELET COUNT 59 K/MM3 (134-434); RDW 14.1 % (11.9-15.9); WHITE BLOOD COUNT 8.1 K/mm3 (4.0-10.0)
--- NOTE | 2016-11-10 08:45 | PN ---
Progress Note, Physician Chief Complaint: extubated, confused TELE: NSR - Current Medication List Current Medications: Active Medications Acetaminophen (Ofirmev Injection -) 1,000 mg IVPB Q6H PRN PRN Reason: FEVER OR PAIN Stop: 11/10/16 09:07 Last Admin: 11/09/16 14:00 Dose: 1,000 mg Piperacillin Sod/Tazobactam Sod (Zosyn 2.25gm Ivpb (Pre-Docked)) 50 mls @ 100 mls/hr IVPB Q8H-IV LAMAR PRN Reason: Protocol Last Admin: 11/10/16 02:17 Dose: 100 mls/hr Pantoprazole Sodium (Protonix 40mg Ivpb (Pre-Docked)) 100 mls @ 200 mls/hr IVPB BID LAMAR Last Admin: 11/09/16 21:31 Dose: 200 mls/hr Potassium Chloride/Sodium Chloride (1/2ns+20meq Kcl) 1,000 mls @ 70 mls/hr IV ASDIR LAMAR Potassium Chloride/Dextrose/Sod Cl (D5-1/2ns+20 Meq Kcl -) 1,000 mls @ 30 mls/ hr IV ASDIR LAMAR Last Admin: 11/09/16 21:36 Dose: 30 mls/hr Insulin Aspart (Novolog Vial Sliding Scale -) 1 vial SQ ACHS LAMAR PRN Reason: Protocol Last Admin: 11/10/16 06:29 Dose: 10 units Insulin Detemir (Levemir Vial) 15 units SQ BIDI LAMAR Last Admin: 11/10/16 06:30 Dose: 15 units Lorazepam (Ativan Injection -) 2 mg IVPUSH Q2H PRN PRN Reason: AGITATION Last Admin: 11/10/16 02:17 Dose: 2 mg Methadone HCl 40 mg/ Methadone (HCl 20 mg) 60 mg PO DAILY@0600 [facility] Last Admin: 11/10/16 06:28 Dose: Not Given Methadone HCl (Dolophine Injection -) 30 mg IM ONCE ONE Stop: 11/10/16 07:26 - Objective Vital Signs: Vital Signs Temperature 99.7 F H 11/10/16 07:57 Pulse Rate 120 H 11/10/16 07:57 Respiratory Rate 19 11/10/16 08:11 Blood Pressure 95/59 11/10/16 07:57 O2 Sat by Pulse Oximetry (%) 99 11/10/16 08:11 Cardiovascular: Yes: Regular Rate and Rhythm Respiratory: Yes: CTA Bilaterally Gastrointestinal: Yes: Soft Edema: No Neurological: Yes: Other (confused, trying to get out of bed) Labs: INR, PTT INR 1.09 (0.82-1.09) 11/08/16 05:42 Microbiology 11/08/16 06:57 Urine - Urine Dc Urine Culture - Final NO GROWTH OBTAINED 11/08/16 06:47 Blood - Peripheral Venous Blood Culture - Preliminary NO GROWTH OBTAINED AFTER 48 HOURS, INCUBATION TO CONTINUE FOR 3 DAYS. 11/08/16 06:47 Blood - Peripheral Venous Blood Culture - Preliminary NO GROWTH OBTAINED AFTER 48 HOURS, INCUBATION TO CONTINUE FOR 3 DAYS. Laboratory Tests 11/09/16 11/10/16 11/10/16 07:25 08:00 08:00 WBC Pending Hgb Pending Plt Count Pending ABG pH 7.42 ABG pCO2 at Pt Temp 38.3 D ABG pO2 at Pt Temp 117.0 H D Oxygen Flow Rate 30% Sodium Pending Potassium Pending Chloride Pending Carbon Dioxide Pending Anion Gap Pending BUN Pending Creatinine Pending Creat Clearance w eGFR Pending Random Glucose Pending Calcium Pending - ....Imaging EKG: Image Reviewed Assessment/Plan Assessment/Plan 66 year old man h/o HIV, HTN, HLD, HCV, DM II admitted with AMS, SOB, found to be in DKA, intubated for airway progression. Pt. has a history of a "cardiomyopathy" as per PMD notes but unknown details. Respiratory failure-secondary to DKA, now extubated -as per CCM -no sign of CHF clinically or on imaging -await echo results Confusion: -?sepsis, DKA -If no improvement consider head CT
[2016-11-10 09:07] LABS: ALBUMIN 2.7 g/dl (3.4-5.0); BILIRUBIN,TOTAL 1.4 mg/dL (0.2-1.0); CREATININE 1.8 mg/dL (0.7-1.3)
[2016-11-10] MEDS ORDERED: SODIUM CHLORIDE 0.45%/POT 1,000 ML IV SCH (09:30)
[2016-11-10] MEDS ORDERED: INSULIN REGULAR HUMAN 100 UNITS/ML *VIAL IVPUSH ONE (10:00)
[2016-11-10] MEDS ORDERED: METHADONE HCL 10 MG/1 ML (20ML VIAL) IM ONE (10:00)
[2016-11-10] MEDS: PANTOPRAZOLE SODIUM 100 ML IVPB SCH ×2 (10:30→21:39)
--- NOTE | 2016-11-10 11:11 | PN ---
Progress Note, Physician History of Present Illness: Awake but confused. Agitated; attempting to get OOB Offers no complaints Low grade temps Breathing non-labored on nasal cannula WBC improved Cultures negative - Current Medication List Current Medications: Active Medications Piperacillin Sod/Tazobactam Sod (Zosyn 2.25gm Ivpb (Pre-Docked)) 50 mls @ 100 mls/hr IVPB Q8H-IV LAMAR PRN Reason: Protocol Last Admin: 11/10/16 10:00 Dose: 100 mls/hr Pantoprazole Sodium (Protonix 40mg Ivpb (Pre-Docked)) 100 mls @ 200 mls/hr IVPB BID LAMAR Last Admin: 11/10/16 10:30 Dose: 200 mls/hr Potassium Chloride/Sodium Chloride (1/2ns+20meq Kcl) 1,000 mls @ 70 mls/hr IV ASDIR LAMAR Potassium Chloride/Sodium Chloride (1/2ns+20meq Kcl) 1,000 mls @ 125 mls/hr IV ASDIR [facility] Last Admin: 11/10/16 10:00 Dose: 125 mls/hr Insulin Aspart (Novolog Vial Sliding Scale -) 1 vial SQ ACHS LAMAR PRN Reason: Protocol Last Admin: 11/10/16 06:29 Dose: 10 units Insulin Detemir (Levemir Vial) 15 units SQ BIDI [facility] Last Admin: 11/10/16 06:30 Dose: 15 units Lorazepam (Ativan Injection -) 2 mg IVPUSH Q2H PRN PRN Reason: AGITATION Last Admin: 11/10/16 02:17 Dose: 2 mg Methadone HCl 40 mg/ Methadone (HCl 20 mg) 60 mg PO DAILY@0600 [facility] Last Admin: 11/10/16 06:28 Dose: Not Given - Objective Vital Signs: Vital Signs Temperature 99.7 F H 11/10/16 07:57 Pulse Rate 120 H 11/10/16 07:57 Respiratory Rate 19 11/10/16 08:11 Blood Pressure 95/59 11/10/16 07:57 O2 Sat by Pulse Oximetry (%) 99 11/10/16 08:11 Constitutional: Yes: No Distress Cardiovascular: Yes: Regular Rate and Rhythm, S1, S2 Respiratory: Yes: Diminished Gastrointestinal: Yes: Normal Bowel Sounds, Soft. No: Tenderness Edema: No Labs: CBC, BMP 11/10/16 08:00 11/10/16 08:00 INR, PTT INR 1.09 (0.82-1.09) 11/08/16 05:42 Assessment/Plan DKA Sepsis Leukocytosis- resolved Thrombocytopenia- worsening Azotemia Discontinue zosyn (possible B-lactam induced thrombocytopenia) Switch to levaquin. Redose vancomycin. Repeat c/s for persistant temp
[2016-11-10] MEDS ORDERED: VANCOMYCIN 1 GRAM (PRE-DOCKED) 250 ML IVPB ONE (11:45)
--- NOTE | 2016-11-10 11:59 | PN ---
Teaching Attending Note Name of Resident: Michelle Anna ATTENDING PHYSICIAN STATEMENT I saw and evaluated the patient. I reviewed the resident's note and discussed the case with the resident. I agree with the resident's findings and plan as documented. SUBJECTIVE: Pt seen and examined in the ICU. Extubated yesterday, saturating well but confused. Started on ativan for concern of alcohol withdrawal. AM labs showing opening of anion gap. OBJECTIVE: Last Vital Signs Temp Pulse Resp BP Pulse Ox 99.7 F H 120 H 19 95/59 99 11/10/16 07:57 11/10/16 07:57 11/10/16 08:11 11/10/16 07:57 11/10/16 08:11 Intake & Output 11/07/16 11/08/16 11/09/16 11/10/16 23:59 23:59 23:59 23:59 Intake Total 5852 2254 860 Output Total 2700 1100 1300 Balance 3152 1154 -440 Weight 142 lb 151 lb 7.321 oz 154 lb 8.705 oz Gen: confused, breathing nonlabored Heart: tachycardic, regular Lung: scattered rhonchi Abd: soft, nontender Ext: no edema CBC, BMP 11/10/16 08:00 11/10/16 08:00 Active Medications Pantoprazole Sodium (Protonix 40mg Ivpb (Pre-Docked)) 100 mls @ 200 mls/hr IVPB BID LAMAR Last Admin: 11/10/16 10:30 Dose: 200 mls/hr Potassium Chloride/Sodium Chloride (1/2ns+20meq Kcl) 1,000 mls @ 70 mls/hr IV ASDIR LAMAR Potassium Chloride/Sodium Chloride (1/2ns+20meq Kcl) 1,000 mls @ 125 mls/hr IV ASDIR LAMAR Last Admin: 11/10/16 10:00 Dose: 125 mls/hr Levofloxacin (Levaquin 250 Mg Premixed Ivpb -) 50 mls @ 50 mls/hr IVPB DAILY [facility] Stop: 11/11/16 11:29 Vancomycin HCl (Vancomycin (Pre-Docked)) 250 mls @ 166.667 mls/hr IVPB ONCE ONE Stop: 11/10/16 13:14 Insulin Aspart (Novolog Vial Sliding Scale -) 1 vial SQ ACHS LAMAR PRN Reason: Protocol Last Admin: 11/10/16 11:15 Dose: 6 units Insulin Detemir (Levemir Vial) 15 units SQ BIDI LAMAR Last Admin: 11/10/16 06:30 Dose: 15 units Lorazepam (Ativan Injection -) 2 mg IVPUSH Q2H PRN PRN Reason: AGITATION Last Admin: 11/10/16 02:17 Dose: 2 mg Methadone HCl 40 mg/ Methadone (HCl 20 mg) 60 mg PO DAILY@0600 [facility] Last Admin: 11/10/16 06:28 Dose: Not Given ASSESSMENT AND PLAN: Diabetic Ketoacidosis/HHNK overlap Severe Metabolic Acidosis improving Acute Respiratory Failure resolving r/o Sepsis Lactic Acidosis resolved Acute Kidney Injury improving Shock resolved - empiric antibiotics per ID - recheck BMP, if anion gap remains open, will need to restart insulin gtt - IVF - monitor urine output, creatinine - replete lytes - ativan PRN for possible alcohol withdrawal - NPO for now due to mental status - DVT/GI prophylaxis - ICU monitoring
[2016-11-10] MEDS ORDERED: LEVOFLOXACIN 250 MG IVPB 50 ML IVPB ONE (12:45)
[2016-11-10] MEDS ORDERED: LABETALOL HCL 5 MG/1 ML (100MG/20 ML VIAL) IVPUSH ONE (14:00)
[2016-11-10 14:11] LABS: CALCIUM 8.3 mg/dL (8.5-10.1); CREATININE 1.7 mg/dL (0.7-1.3); MAGNESIUM 2.2 mg/dL (1.8-2.4); PHOSPHOROUS 2.1 mg/dL (2.5-4.9)
[2016-11-10] MEDS: LOSARTAN POTASSIUM 25 MG TABLET PO SCH (16:28)
--- NOTE | 2016-11-10 17:22 | CONSULT ---
Consult Consult Specialty:: urology Referred by:: ICU Reason for Consultation:: gross hematuria, urinary retention - History of Present Illness Chief Complaint: gross hematuria, urinary retention History of Present Illness: ICU patient noted to have blood in huertas and and distended bladder Huertas appears to be in prostate - History Source History Provided By: Medical Record Limitations to Obtaining History: Intoxication - Past Medical History Cardio/Vascular: Yes: HTN, Hyperlipdemia Hepatobiliary: Yes: Hepatitis C Infectious Disease: Yes: HIV Endocrine: Yes: Diabetes Mellitus - Alcohol/Substance Use Hx Alcohol Use: Yes - Smoking History Smoking history: Current every day smoker Have you smoked in the past 12 months: Yes Aproximately how many cigarettes per day: 1 - Social History Usual Living Arrangement: With Spouse ADL: Independent History of Recent Travel: No Home Medications - Allergies Allergies/Adverse Reactions: Allergies Allergy/AdvReac Type Severity Reaction Status Date / Time No Known Drug Allergies Allergy Verified 11/08/16 05:53 pollen and dust Allergy Mild Itching Uncoded 11/08/16 05:53 weeds Allergy Mild Uncoded 11/08/16 05:53 - Home Medications Home Medications: Ambulatory Orders ASA - 81 mg PO DAILY 11/08/16 Hctz - 12.5 mg PO DAILY 11/08/16 Metformin Xr 100 mg PO 11/08/16 Novolog Flexpen SQ ACHS 11/08/16 Ranexa 500 mg PO DAILY 11/08/16 Family Disease History - Family Disease History Family Disease History: Diabetes: Mother (dec'd age 84 from dm), Heart Disease: Father (dec'd age 50s hx mi), Mother, Brother (8 brothers, 1 dec'd age 60s from ca), Other: Grandparent (all dec'd natural causes), Father, Brother, Sister (3 all a&w), Son (has 4 a&w), Daughter (2 a&w) Physical Exam Vital Signs: Vital Signs Temperature 97.8 F 11/10/16 14:00 Pulse Rate 117 H 11/10/16 14:00 Respiratory Rate 20 11/10/16 14:00 Blood Pressure 140/78 11/10/16 12:00 O2 Sat by Pulse Oximetry (%) 99 11/10/16 08:11 Renal/: Yes: Bladder Distention, Huertas Present, Hematuria Labs: CBC, BMP 11/10/16 08:00 11/10/16 13:30 Assessment/Plan displaced huertas 16 Fr huertas placed. minimally tinged urine returned. bladder decompressed
[2016-11-10 17:43] LABS: MAGNESIUM 2.1 mg/dL (1.8-2.4); PHOSPHOROUS 2.3 mg/dL (2.5-4.9)
[2016-11-10] MEDS ORDERED: SODIUM CHLORIDE 0.45% 250 ML IV SCH (17:45)
[2016-11-10 18:11] LABS: TROPONIN I 0.59 ng/ml (0.00-0.05)
[2016-11-10] MEDS: SODIUM CHLORIDE 0.45% 1,000 ML IV SCH (19:00)
[2016-11-10 22:24] LABS: MCH 29.7 pg (25.7-33.7); MEAN CELL VOLUME 89.9 fl (80-96); MEAN PLT VOLUME 10.8 fl (7.5-11.1); PLATELET COUNT 62 K/MM3 (134-434); RDW 13.9 % (11.9-15.9); WHITE BLOOD COUNT 8.4 K/mm3 (4.0-10.0)
[2016-11-10 22:45] LABS: TROPONIN I 0.4 ng/ml (0.00-0.05)
--- NOTE | 2016-11-10 23:02 | PN ---
Progress Note, Physician - Current Medication List Current Medications: Active Medications Pantoprazole Sodium (Protonix 40mg Ivpb (Pre-Docked)) 100 mls @ 200 mls/hr IVPB BID [facility] Last Admin: 11/10/16 21:39 Dose: 200 mls/hr Potassium Chloride/Sodium Chloride (1/2ns+20meq Kcl) 1,000 mls @ 70 mls/hr IV ASDIR LAMAR Levofloxacin (Levaquin 250 Mg Premixed Ivpb -) 50 mls @ 50 mls/hr IVPB DAILY [facility] Sodium Chloride (1/2 Normal Saline) 1,000 mls @ 83 mls/hr IV ASDIR LAMAR Last Admin: 11/10/16 19:00 Dose: 83 mls/hr Insulin Aspart (Novolog Vial Sliding Scale -) 1 vial SQ ACHS LAMAR PRN Reason: Protocol Last Admin: 11/10/16 22:00 Dose: Not Given Insulin Detemir (Levemir Vial) 8 units SQ BIDI [facility] Lorazepam (Ativan Injection -) 2 mg IVPUSH Q2H PRN PRN Reason: AGITATION Last Admin: 11/10/16 02:17 Dose: 2 mg Losartan Potassium (Cozaar -) 25 mg PO DAILY [facility] Last Admin: 11/10/16 16:28 Dose: Not Given Methadone HCl 40 mg/ Methadone (HCl 20 mg) 60 mg PO DAILY@0600 [facility] Last Admin: 11/10/16 06:28 Dose: Not Given - Objective Vital Signs: Vital Signs Temperature 98.8 F 11/10/16 22:00 Pulse Rate 79 11/10/16 22:00 Respiratory Rate 14 11/10/16 22:00 Blood Pressure 122/84 11/10/16 22:00 O2 Sat by Pulse Oximetry (%) 100 11/10/16 20:12 Labs: CBC, BMP 11/10/16 13:30 INR, PTT INR 1.09 (0.82-1.09) 11/08/16 05:42
[2016-11-11 05:58] LABS: MCH 30.1 pg (25.7-33.7); MCHC 33.2 g/dl (32.0-35.9); MEAN CELL VOLUME 90.6 fl (80-96); MEAN PLT VOLUME 11.2 fl (7.5-11.1); PLATELET COUNT 64 K/MM3 (134-434); RDW 14.3 % (11.9-15.9); WHITE BLOOD COUNT 8.4 K/mm3 (4.0-10.0)
[2016-11-11 06:27] LABS: CALCIUM 7.9 mg/dL (8.5-10.1); CREATININE 1.2 mg/dL (0.7-1.3)
[2016-11-11 06:30] LABS: TROPONIN I 0.22 ng/ml (0.00-0.05)
[2016-11-11] MEDS: INSULIN SLIDING SCALE (NOVOLOG) 1 VIAL SQ SCH ×4 (06:36→22:31)
[2016-11-11] MEDS: INSULIN DETEMIR 100 UNITS/ML MDV SQ SCH ×2 (06:40→16:14)
[2016-11-11] MEDS: METHADONE 40 MG, METHADONE 20 MG PO SCH ×2 (07:00→09:25)
[2016-11-11] MEDS: SODIUM CHLORIDE 0.45% 1,000 ML IV SCH ×2 (07:39→19:00)
--- NOTE | 2016-11-11 08:19 | PN ---
Progress Note, Physician Chief Complaint: Low level + TnI He denies chest pain TELE: NSR History of Present Illness: slightly more alert today - Current Medication List Current Medications: Active Medications Pantoprazole Sodium (Protonix 40mg Ivpb (Pre-Docked)) 100 mls @ 200 mls/hr IVPB BID [facility] Last Admin: 11/10/16 21:39 Dose: 200 mls/hr Potassium Chloride/Sodium Chloride (1/2ns+20meq Kcl) 1,000 mls @ 70 mls/hr IV ASDIR [facility] Levofloxacin (Levaquin 250 Mg Premixed Ivpb -) 50 mls @ 50 mls/hr IVPB DAILY [facility] Sodium Chloride (1/2 Normal Saline) 1,000 mls @ 83 mls/hr IV ASDIR [facility] Last Admin: 11/11/16 07:39 Dose: 83 mls/hr Insulin Aspart (Novolog Vial Sliding Scale -) 1 vial SQ ACHS [facility] PRN Reason: Protocol Last Admin: 11/11/16 06:36 Dose: Not Given Insulin Detemir (Levemir Vial) 8 units SQ BIDI [facility] Last Admin: 11/11/16 06:40 Dose: 8 units Lorazepam (Ativan Injection -) 2 mg IVPUSH Q2H PRN PRN Reason: AGITATION Last Admin: 11/10/16 02:17 Dose: 2 mg Losartan Potassium (Cozaar -) 25 mg PO DAILY [facility] Last Admin: 11/10/16 16:28 Dose: Not Given Methadone HCl 40 mg/ Methadone (HCl 20 mg) 60 mg PO DAILY@0600 [facility] Last Admin: 11/11/16 07:00 Dose: Not Given - Objective Vital Signs: Vital Signs Temperature 98.6 F 11/11/16 06:00 Pulse Rate 83 11/11/16 08:00 Respiratory Rate 18 11/11/16 08:00 Blood Pressure 128/106 11/11/16 08:00 O2 Sat by Pulse Oximetry (%) 99 11/11/16 07:59 Constitutional: Yes: No Distress Cardiovascular: Yes: Regular Rate and Rhythm Respiratory: Yes: Other (decreased breath sounds at bases) Gastrointestinal: Yes: Soft (nontender) Edema: No Labs: CBC, BMP 11/11/16 05:05 11/11/16 05:05 INR, PTT INR 1.09 (0.82-1.09) 11/08/16 05:42 Laboratory Tests 11/08/16 11/08/16 11/10/16 05:42 15:00 17:00 WBC Hgb Hct Plt Count Sodium Potassium BUN Creatinine Creatine Kinase Troponin I < 0.02 0.59 H D Opiates Screen Positive Methadone Screen Positive 11/10/16 11/11/16 11/11/16 21:45 05:05 05:05 WBC 8.4 Hgb 9.4 L Hct 28.2 L Plt Count 64 L Sodium 150 H Potassium 4.4 BUN 21 H Creatinine 1.2 D Creatine Kinase 523 H D 508 H Troponin I 0.40 H D 0.22 H D Opiates Screen Methadone Screen - ....Imaging EKG: Image Reviewed Assessment/Plan 66 year old man h/o HIV, HTN, HLD, HCV, DM II admitted with AMS, SOB, found to be in DKA, intubated for airway progression. Pt. has a history of a "cardiomyopathy" as per PMD notes but unknown details. Respiratory failure-secondary to DKA, now extubated -as per CCM -no sign of CHF clinically or on imaging -await echo results Sepsis: -suspected PNA -follow cultures -Abx as per Critical Care NSTEMI: -Likely secondary to sepsis/demand ischemia -ASA held due to hematuria and dropping platelets (may be secondary to Zosyn) -Echo -Can give low dose beta trent if there is no concern for hypoglycemia. -Will need ischemic evaluation prior to d/c w stress MIBI if not done recently as outpatient, will reach out to PMD on Sunday for records
--- NOTE | 2016-11-11 08:53 | PN ---
Progress Note (short form) - Note Progress Note: awake and alert wearing a evon Vital Signs Period Temp Pulse Resp BP Sys/Foley Pulse Ox Last 24 Hr 97.8 F-98.8 F 79-118 14-22 100-160/65-110 99-100 cor-rrr lungs decreased bs at bases abd soft,nt ext no edema CBC, BMP 11/11/16 05:05 11/11/16 05:05 Microbiology 11/08/16 06:47 Blood - Peripheral Venous Blood Culture - Preliminary NO GROWTH OBTAINED AFTER 72 HOURS, INCUBATION TO CONTINUE FOR 2 DAYS. 11/08/16 06:47 Blood - Peripheral Venous Blood Culture - Preliminary NO GROWTH OBTAINED AFTER 72 HOURS, INCUBATION TO CONTINUE FOR 2 DAYS. 11/09/16 00:30 Sputum - Endotrachea Suction/Ventilator Gram Stain - Final 11/09/16 00:30 Sputum - Endotrachea Suction/Ventilator Sputum Culture - Preliminary Yeast Like Organism 11/08/16 06:57 Urine - Urine Dc Urine Culture - Final NO GROWTH OBTAINED Current Medications Pantoprazole Sodium (Protonix 40mg Ivpb (Pre-Docked)) 100 mls @ 200 mls/hr IVPB BID [facility] Last Admin: 11/10/16 21:39 Dose: 200 mls/hr Potassium Chloride/Sodium Chloride (1/2ns+20meq Kcl) 1,000 mls @ 70 mls/hr IV ASDIR [facility] Levofloxacin (Levaquin 250 Mg Premixed Ivpb -) 50 mls @ 50 mls/hr IVPB DAILY [facility] Sodium Chloride (1/2 Normal Saline) 1,000 mls @ 83 mls/hr IV ASDIR [facility] Last Admin: 11/11/16 07:39 Dose: 83 mls/hr Insulin Aspart (Novolog Vial Sliding Scale -) 1 vial SQ ACHS [facility] PRN Reason: Protocol Last Admin: 11/11/16 06:36 Dose: Not Given Insulin Detemir (Levemir Vial) 8 units SQ BIDI [facility] Last Admin: 11/11/16 06:40 Dose: 8 units Lorazepam (Ativan Injection -) 2 mg IVPUSH Q2H PRN PRN Reason: AGITATION Last Admin: 11/10/16 02:17 Dose: 2 mg Losartan Potassium (Cozaar -) 25 mg PO DAILY [facility] Last Admin: 11/10/16 16:28 Dose: Not Given Methadone HCl 40 mg/ Methadone (HCl 20 mg) 60 mg PO DAILY@0600 [facility] Last Admin: 11/11/16 07:00 Dose: Not Given a/p fever resolved dka resolved day #4 antibiotics switched off zosyn for thrombocytopenia d/c vancomycin no MRSA continue levaquin
[2016-11-11] MEDS: PANTOPRAZOLE SODIUM 100 ML IVPB SCH ×2 (09:15→21:40)
[2016-11-11] MEDS: LOSARTAN POTASSIUM 25 MG TABLET PO SCH (09:16)
[2016-11-11] MEDS ORDERED: METHADONE HCL 40 MG DISPERSABLE TABLET ONE (09:24)
[2016-11-11] MEDS ORDERED: METHADONE HCL 10 MG TABLET ONE (09:24)
--- NOTE | 2016-11-11 09:24 | PN ---
Progress Note (short form) - Note Progress Note: Patient seen and examined in the ICU. Remains extubated. Drowsy but arousable and interactive. Some dry cough. Yeast on sputum contaminant. Hematuria improving. Denies CP or SOB. Intake & Output 11/08/16 11/09/16 11/10/16 11/11/16 23:59 23:59 23:59 23:59 Intake Total 5852 2254 2795 1096 Output Total 2700 1100 2600 600 Balance 3152 1154 195 496 Weight 142 lb 151 lb 7.321 oz 154 lb 8.705 oz 149 lb 7.574 oz Last Vital Signs Temp Pulse Resp BP Pulse Ox 98.6 F 83 18 128/106 99 11/11/16 06:00 11/11/16 08:00 11/11/16 08:00 11/11/16 08:00 11/11/16 09:00 Active Medications Pantoprazole Sodium (Protonix 40mg Ivpb (Pre-Docked)) 100 mls @ 200 mls/hr IVPB BID [facility] Last Admin: 11/11/16 09:15 Dose: 200 mls/hr Potassium Chloride/Sodium Chloride (1/2ns+20meq Kcl) 1,000 mls @ 70 mls/hr IV ASDIR [facility] Levofloxacin (Levaquin 250 Mg Premixed Ivpb -) 50 mls @ 50 mls/hr IVPB DAILY [facility] Sodium Chloride (1/2 Normal Saline) 1,000 mls @ 83 mls/hr IV ASDIR [facility] Last Admin: 11/11/16 07:39 Dose: 83 mls/hr Insulin Aspart (Novolog Vial Sliding Scale -) 1 vial SQ ACHS [facility] PRN Reason: Protocol Last Admin: 11/11/16 06:36 Dose: Not Given Insulin Detemir (Levemir Vial) 8 units SQ BIDI [facility] Last Admin: 11/11/16 06:40 Dose: 8 units Lorazepam (Ativan Injection -) 2 mg IVPUSH Q2H PRN PRN Reason: AGITATION Last Admin: 11/10/16 02:17 Dose: 2 mg Losartan Potassium (Cozaar -) 25 mg PO DAILY [facility] Last Admin: 11/11/16 09:16 Dose: 25 mg Methadone HCl 40 mg/ Methadone (HCl 20 mg) 60 mg PO DAILY@0600 [facility] Last Admin: 11/11/16 07:00 Dose: Not Given Gen: Drowsy, breathing nonlabored Heart: S1S2, regular Lung: scattered rhonchi Abd: soft, nontender Ext: no edema Laboratory Results - last 24 hr 11/10/16 11/10/16 11/10/16 09:18 11:12 13:30 WBC Corrected WBC (auto) RBC Hgb Hct MCV MCHC RDW Plt Count MPV Neutrophils % Lymphocytes % Monocytes % Eosinophils % Basophils % Differential Comment Smudge Cells Platelet Estimate Platelet Comment RBC Morphology Sodium 148 H Potassium 4.0 Chloride 113 H Carbon Dioxide 25 D Anion Gap 10 BUN 26 H Creatinine 1.7 H POC Glucometer > [phone] Random Glucose 123 H D Calcium 8.3 L Phosphorus 2.1 L Magnesium 2.2 Creatine Kinase Creatine Kinase Index CK-MB (CK-2) CK-MB (CK-2) Rel Index Troponin I Random Vancomycin 11/10/16 11/10/16 11/10/16 17:00 17:00 17:00 WBC Corrected WBC (auto) RBC Hgb Hct MCV MCHC RDW Plt Count MPV Neutrophils % Lymphocytes % Monocytes % Eosinophils % Basophils % Differential Comment Smudge Cells Platelet Estimate Platelet Comment RBC Morphology Sodium Potassium Chloride Carbon Dioxide Anion Gap BUN Creatinine POC Glucometer Random Glucose Calcium Phosphorus 2.3 L Magnesium 2.1 Creatine Kinase 677 H D Creatine Kinase Index 0.6 CK-MB (CK-2) 3.818 H CK-MB (CK-2) Rel Index Cancelled Troponin I 0.59 H D Random Vancomycin 11/10/16 11/10/16 11/10/16 17:33 18:05 21:45 WBC Cancelled 8.4 Corrected WBC (auto) Cancelled RBC Cancelled 3.05 L Hgb Cancelled 9.1 L D Hct Cancelled 27.4 L MCV Cancelled 89.9 MCHC Cancelled 33.0 RDW Cancelled 13.9 Plt Count Cancelled 62 L MPV Cancelled 10.8 Neutrophils % Cancelled Lymphocytes % Cancelled Monocytes % Cancelled Eosinophils % Cancelled Basophils % Cancelled Differential Comment Cancelled Smudge Cells Cancelled Platelet Estimate Cancelled Platelet Comment Cancelled RBC Morphology Cancelled Sodium Potassium Chloride Carbon Dioxide Anion Gap BUN Creatinine POC Glucometer 128.07231 Random Glucose Calcium Phosphorus Magnesium Creatine Kinase Creatine Kinase Index CK-MB (CK-2) CK-MB (CK-2) Rel Index Troponin I Random Vancomycin 11/10/16 11/10/16 11/10/16 21:45 21:45 21:59 WBC Corrected WBC (auto) RBC Hgb Hct MCV MCHC RDW Plt Count MPV Neutrophils % Lymphocytes % Monocytes % Eosinophils % Basophils % Differential Comment Smudge Cells Platelet Estimate Platelet Comment RBC Morphology Sodium Potassium Chloride Carbon Dioxide Anion Gap BUN Creatinine POC Glucometer [phone] Random Glucose Calcium Phosphorus Magnesium Creatine Kinase 523 H D Creatine Kinase Index CK-MB (CK-2) CK-MB (CK-2) Rel Index Cancelled Troponin I 0.40 H D Random Vancomycin 11/11/16 11/11/16 11/11/16 05:05 05:05 05:05 WBC 8.4 Corrected WBC (auto) RBC 3.12 L Hgb 9.4 L Hct 28.2 L MCV 90.6 MCHC 33.2 RDW 14.3 Plt Count 64 L MPV 11.2 H Neutrophils % Lymphocytes % Monocytes % Eosinophils % Basophils % Differential Comment Smudge Cells Platelet Estimate Platelet Comment RBC Morphology Sodium 150 H Potassium 4.4 Chloride 114 H Carbon Dioxide 28 Anion Gap 8 BUN 21 H Creatinine 1.2 D POC Glucometer Random Glucose 94 D Calcium 7.9 L Phosphorus Magnesium Creatine Kinase 508 H Creatine Kinase Index 0.5 CK-MB (CK-2) 2.468 CK-MB (CK-2) Rel Index Troponin I 0.22 H D Random Vancomycin 10.163 11/11/16 11/11/16 05:05 05:41 WBC Corrected WBC (auto) RBC Hgb Hct MCV MCHC RDW Plt Count MPV Neutrophils % Lymphocytes % Monocytes % Eosinophils % Basophils % Differential Comment Smudge Cells Platelet Estimate Platelet Comment RBC Morphology Sodium Potassium Chloride Carbon Dioxide Anion Gap BUN Creatinine POC Glucometer 124.66935 Random Glucose Calcium Phosphorus Magnesium Creatine Kinase Creatine Kinase Index CK-MB (CK-2) CK-MB (CK-2) Rel Index Cancelled Troponin I Random Vancomycin ASSESSMENT AND PLAN: Diabetic Ketoacidosis/HHNK overlap Severe Metabolic Acidosis improving Acute Respiratory Failure resolving Sepsis Lactic Acidosis resolved Acute Kidney Injury improving Shock resolved - Levaquin per ID - Glycemic control - PO as tolerated - monitor urine output, creatinine - ativan PRN for possible alcohol withdrawal - DVT/GI prophylaxis - Floor - Follow H&H - D/C [facility] from [facility] CCT[facility]"
[2016-11-11] MEDS: LEVOFLOXACIN 250 MG IVPB 50 ML IVPB SCH (10:12)
[2016-11-11] MEDS: METOPROLOL TARTRATE 25 MG TABLET (FP) PO SCH (10:12)
[2016-11-11] MEDS: LACTOBACILLUS ACIDOPHILUS 1 EACH TAB (FP) PO SCH ×2 (11:49→21:40)
[2016-11-11 12:00] LABS: INR 1.06 (0.82-1.09); PROTHROMBIN TIME (PATIENT) 11.7 SEC (9.98-11.88)
[2016-11-11 12:03] LABS: ACTIVATED PTT 27.9 SECONDS (26.9-34.4)
--- NOTE | 2016-11-11 12:18 | EKG ---
Test Reason : Blood Pressure : / mmHG Vent. Rate : 078 BPM Atrial Rate : 078 BPM P-R Int : 136 ms QRS Dur : 072 ms QT Int : 430 ms P-R-T Axes : 052 -33 -54 degrees QTc Int : 490 ms NORMAL SINUS RHYTHM LEFT AXIS DEVIATION T WAVE ABNORMALITY, CONSIDER INFEROLATERAL ISCHEMIA PROLONGED QT ABNORMAL ECG WHEN COMPARED WITH ECG OF 10-NOV-2016 16:42, INVERTED T WAVES HAVE REPLACED NONSPECIFIC T WAVE ABNORMALITY IN LATERAL LEADS QT HAS SHORTENED Confirmed by GEM ST MD ([id number]) on 11/11/2016 12:17:57 PM Referred By: Laurie TORRES Confirmed By:GEM ST MD
--- NOTE | 2016-11-11 12:19 | EKG ---
Test Reason : Blood Pressure : / mmHG Vent. Rate : 098 BPM Atrial Rate : 098 BPM P-R Int : 136 ms QRS Dur : 074 ms QT Int : 358 ms P-R-T Axes : 059 -50 -66 degrees QTc Int : 457 ms SINUS RHYTHM WITH OCCASIONAL PREMATURE VENTRICULAR COMPLEXES AND PREMATURE ATRIAL COMPLEXES LEFT AXIS DEVIATION NONSPECIFIC T WAVE ABNORMALITY ABNORMAL ECG WHEN COMPARED WITH ECG OF 08-NOV-2016 10:16, PREMATURE ATRIAL COMPLEXES ARE NOW PRESENT NONSPECIFIC T WAVE ABNORMALITY NOW EVIDENT IN INFERIOR LEADS Confirmed by GEM ST MD ([id number]) on 11/11/2016 12:18:38 PM Referred By: Confirmed By:GEM ST MD
--- NOTE | 2016-11-11 21:55 | PN ---
Progress Note, Physician - Current Medication List Current Medications: Active Medications Pantoprazole Sodium (Protonix 40mg Ivpb (Pre-Docked)) 100 mls @ 200 mls/hr IVPB BID [facility] Last Admin: 11/11/16 21:40 Dose: 200 mls/hr Potassium Chloride/Sodium Chloride (1/2ns+20meq Kcl) 1,000 mls @ 70 mls/hr IV [facility] Levofloxacin (Levaquin 250 Mg Premixed Ivpb -) 50 mls @ 50 mls/hr IVPB DAILY [facility] Last Admin: 11/11/16 10:12 Dose: 50 mls/hr Sodium Chloride (1/2 Normal Saline) 1,000 mls @ 83 mls/hr IV ASDIR [facility] Last Admin: 11/11/16 07:39 Dose: 83 mls/hr Insulin Aspart (Novolog Vial Sliding Scale -) 1 vial SQ ACHS [facility] PRN Reason: Protocol Last Admin: 11/11/16 16:15 Dose: 4 units Insulin Detemir (Levemir Vial) 8 units SQ BIDI [facility] Last Admin: 11/11/16 16:14 Dose: 8 units Lactobacillus Acidophilus (Bacid -) 1 tab PO BID [facility] Last Admin: 11/11/16 21:40 Dose: 1 tab Lorazepam (Ativan Injection -) 2 mg IVPUSH Q2H PRN PRN Reason: AGITATION Last Admin: 11/10/16 02:17 Dose: 2 mg Losartan Potassium (Cozaar -) 25 mg PO DAILY [facility] Last Admin: 11/11/16 09:16 Dose: 25 mg Methadone HCl 40 mg/ Methadone (HCl 20 mg) 60 mg PO DAILY@0600 [facility] Last Admin: 11/11/16 09:25 Dose: 60 mg Metoprolol Tartrate (Lopressor -) 25 mg PO DAILY [facility] Last Admin: 11/11/16 10:12 Dose: 25 mg - Objective Vital Signs: Vital Signs Temperature 98.3 F 11/11/16 18:00 Pulse Rate 88 11/11/16 18:00 Respiratory Rate 18 11/11/16 18:00 Blood Pressure 126/102 11/11/16 18:00 O2 Sat by Pulse Oximetry (%) 99 11/11/16 15:43 Labs: CBC, BMP 11/11/16 05:05 11/11/16 05:05 INR, PTT INR 1.06 (0.82-1.09) 11/11/16 11:11
[2016-11-12] MEDS ORDERED: METHADONE HCL 40 MG DISPERSABLE TABLET ONE (05:45)
[2016-11-12] MEDS ORDERED: METHADONE HCL 10 MG TABLET ONE (05:45)
[2016-11-12] MEDS: METHADONE 40 MG, METHADONE 20 MG PO SCH (06:05)
[2016-11-12] MEDS: INSULIN DETEMIR 100 UNITS/ML MDV SQ SCH ×2 (06:05→16:57)
[2016-11-12] MEDS: INSULIN SLIDING SCALE (NOVOLOG) 1 VIAL SQ SCH ×4 (06:06→21:51)
[2016-11-12 06:38] LABS: CALCIUM 7.6 mg/dL (8.5-10.1)
--- NOTE | 2016-11-12 08:06 | PN ---
Progress Note, Physician Chief Complaint: tolerated beta trent well TELE: NSR, short self limited run PSVT No chest pain - Current Medication List Current Medications: Active Medications Pantoprazole Sodium (Protonix 40mg Ivpb (Pre-Docked)) 100 mls @ 200 mls/hr IVPB BID [facility] Last Admin: 11/11/16 21:40 Dose: 200 mls/hr Potassium Chloride/Sodium Chloride (1/2ns+20meq Kcl) 1,000 mls @ 70 mls/hr IV ASDIR [facility] Levofloxacin (Levaquin 250 Mg Premixed Ivpb -) 50 mls @ 50 mls/hr IVPB DAILY [facility] Last Admin: 11/11/16 10:12 Dose: 50 mls/hr Sodium Chloride (1/2 Normal Saline) 1,000 mls @ 83 mls/hr IV ASDIR [facility] Last Admin: 11/11/16 19:00 Dose: 83 mls/hr Insulin Aspart (Novolog Vial Sliding Scale -) 1 vial SQ ACHS [facility] PRN Reason: Protocol Last Admin: 11/12/16 06:06 Dose: Not Given Insulin Detemir (Levemir Vial) 8 units SQ BIDI [facility] Last Admin: 11/12/16 06:05 Dose: 8 units Lactobacillus Acidophilus (Bacid -) 1 tab PO BID [facility] Last Admin: 11/11/16 21:40 Dose: 1 tab Lorazepam (Ativan Injection -) 2 mg IVPUSH Q2H PRN PRN Reason: AGITATION Last Admin: 11/10/16 02:17 Dose: 2 mg Losartan Potassium (Cozaar -) 25 mg PO DAILY [facility] Last Admin: 11/11/16 09:16 Dose: 25 mg Methadone HCl 40 mg/ Methadone (HCl 20 mg) 60 mg PO DAILY@0600 [facility] Last Admin: 11/12/16 06:05 Dose: 60 mg Metoprolol Tartrate (Lopressor -) 25 mg PO DAILY [facility] Last Admin: 11/11/16 10:12 Dose: 25 mg - Objective Vital Signs: Vital Signs Temperature 98.5 F 11/12/16 06:00 Pulse Rate 74 11/12/16 06:00 Respiratory Rate 15 11/12/16 06:00 Blood Pressure 139/92 11/12/16 06:00 O2 Sat by Pulse Oximetry (%) 100 11/11/16 23:00 Constitutional: Yes: Calm Eyes: Yes: Conjunctiva Clear Cardiovascular: Yes: Regular Rate and Rhythm Respiratory: Yes: CTA Bilaterally Gastrointestinal: Yes: Soft Edema: No Neurological: Yes: Other (more alert) Labs: CBC, BMP 11/11/16 05:05 11/12/16 05:00 INR, PTT INR 1.06 (0.82-1.09) 11/11/16 11:11 Laboratory Tests 11/11/16 11/12/16 05:05 05:00 WBC 8.4 Hgb 9.4 L Hct 28.2 L Plt Count 64 L Potassium 3.6 Calcium 7.6 L Assessment/Plan Respiratory failure secondary to PNA, extubated DKA, resolved NSTEMI Respiratory failure-secondary to DKA, now extubated -as per CCM -no sign of CHF clinically or on imaging Sepsis: -suspected PNA -follow cultures -Abx as per Critical Care NSTEMI: -Likely secondary to sepsis/demand ischemia -ASA held due to hematuria and dropping platelets (may be secondary to Zosyn) -Echo -tolerated metoprolol well -Will need ischemic evaluation prior to d/c w stress MIBI if not done recently as outpatient, will reach out to PMD on Sunday for records
--- NOTE | 2016-11-12 09:06 | PN ---
Progress Note (short form) - Note Progress Note: Patient seen and examined in the ICU. Remains extubated. More awake and alert. Some dry cough. Yeast on sputum contaminant. Hematuria improving. Denies CP or SOB. Intake & Output 11/08/16 11/09/16 11/10/16 11/11/16 23:59 23:59 23:59 23:59 Intake Total 5852 2254 2795 1096 Output Total 2700 1100 2600 600 Balance 3152 1154 195 496 Weight 142 lb 151 lb 7.321 oz 154 lb 8.705 oz 149 lb 7.574 oz Last Vital Signs Temp Pulse Resp BP Pulse Ox 98.6 F 83 18 128/106 99 11/11/16 06:00 11/11/16 08:00 11/11/16 08:00 11/11/16 08:00 11/11/16 09:00 Active Medications Pantoprazole Sodium (Protonix 40mg Ivpb (Pre-Docked)) 100 mls @ 200 mls/hr IVPB BID [facility] Last Admin: 11/11/16 09:15 Dose: 200 mls/hr Potassium Chloride/Sodium Chloride (1/2ns+20meq Kcl) 1,000 mls @ 70 mls/hr IV ASDIR [facility] Levofloxacin (Levaquin 250 Mg Premixed Ivpb -) 50 mls @ 50 mls/hr IVPB DAILY [facility] Sodium Chloride (1/2 Normal Saline) 1,000 mls @ 83 mls/hr IV [facility] Last Admin: 11/11/16 07:39 Dose: 83 mls/hr Insulin Aspart (Novolog Vial Sliding Scale -) 1 vial SQ ACHS [facility] PRN Reason: Protocol Last Admin: 11/11/16 06:36 Dose: Not Given Insulin Detemir (Levemir Vial) 8 units SQ BIDI [facility] Last Admin: 11/11/16 06:40 Dose: 8 units Lorazepam (Ativan Injection -) 2 mg IVPUSH Q2H PRN PRN Reason: AGITATION Last Admin: 11/10/16 02:17 Dose: 2 mg Losartan Potassium (Cozaar -) 25 mg PO DAILY [facility] Last Admin: 11/11/16 09:16 Dose: 25 mg Methadone HCl 40 mg/ Methadone (HCl 20 mg) 60 mg PO DAILY@0600 [facility] Last Admin: 11/11/16 07:00 Dose: Not Given Gen: Drowsy, breathing nonlabored Heart: S1S2, regular Lung: scattered rhonchi Abd: soft, nontender Ext: no edema Laboratory Results - last 24 hr 11/10/16 11/10/16 11/10/16 09:18 11:12 13:30 WBC Corrected WBC (auto) RBC Hgb Hct MCV MCHC RDW Plt Count MPV Neutrophils % Lymphocytes % Monocytes % Eosinophils % Basophils % Differential Comment Smudge Cells Platelet Estimate Platelet Comment RBC Morphology Sodium 148 H Potassium 4.0 Chloride 113 H Carbon Dioxide 25 D Anion Gap 10 BUN 26 H Creatinine 1.7 H POC Glucometer > 400 261.10850 Random Glucose 123 H D Calcium 8.3 L Phosphorus 2.1 L Magnesium 2.2 Creatine Kinase Creatine Kinase Index CK-MB (CK-2) CK-MB (CK-2) Rel Index Troponin I Random Vancomycin 11/10/16 11/10/16 11/10/16 17:00 17:00 17:00 WBC Corrected WBC (auto) RBC Hgb Hct MCV MCHC RDW Plt Count MPV Neutrophils % Lymphocytes % Monocytes % Eosinophils % Basophils % Differential Comment Smudge Cells Platelet Estimate Platelet Comment RBC Morphology Sodium Potassium Chloride Carbon Dioxide Anion Gap BUN Creatinine POC Glucometer Random Glucose Calcium Phosphorus 2.3 L Magnesium 2.1 Creatine Kinase 677 H D Creatine Kinase Index 0.6 CK-MB (CK-2) 3.818 H CK-MB (CK-2) Rel Index Cancelled Troponin I 0.59 H D Random Vancomycin 11/10/16 11/10/16 11/10/16 17:33 18:05 21:45 WBC Cancelled 8.4 Corrected WBC (auto) Cancelled RBC Cancelled 3.05 L Hgb Cancelled 9.1 L D Hct Cancelled 27.4 L MCV Cancelled 89.9 MCHC Cancelled 33.0 RDW Cancelled 13.9 Plt Count Cancelled 62 L MPV Cancelled 10.8 Neutrophils % Cancelled Lymphocytes % Cancelled Monocytes % Cancelled Eosinophils % Cancelled Basophils % Cancelled Differential Comment Cancelled Smudge Cells Cancelled Platelet Estimate Cancelled Platelet Comment Cancelled RBC Morphology Cancelled Sodium Potassium Chloride Carbon Dioxide Anion Gap BUN Creatinine POC Glucometer 128.51210 Random Glucose Calcium Phosphorus Magnesium Creatine Kinase Creatine Kinase Index CK-MB (CK-2) CK-MB (CK-2) Rel Index Troponin I Random Vancomycin 11/10/16 11/10/16 11/10/16 21:45 21:45 21:59 WBC Corrected WBC (auto) RBC Hgb Hct MCV MCHC RDW Plt Count MPV Neutrophils % Lymphocytes % Monocytes % Eosinophils % Basophils % Differential Comment Smudge Cells Platelet Estimate Platelet Comment RBC Morphology Sodium Potassium Chloride Carbon Dioxide Anion Gap BUN Creatinine POC Glucometer 101.75622 Random Glucose Calcium Phosphorus Magnesium Creatine Kinase 523 H D Creatine Kinase Index CK-MB (CK-2) CK-MB (CK-2) Rel Index Cancelled Troponin I 0.40 H D Random Vancomycin 11/11/16 11/11/16 11/11/16 05:05 05:05 05:05 WBC 8.4 Corrected WBC (auto) RBC 3.12 L Hgb 9.4 L Hct 28.2 L MCV 90.6 MCHC 33.2 RDW 14.3 Plt Count 64 L MPV 11.2 H Neutrophils % Lymphocytes % Monocytes % Eosinophils % Basophils % Differential Comment Smudge Cells Platelet Estimate Platelet Comment RBC Morphology Sodium 150 H Potassium 4.4 Chloride 114 H Carbon Dioxide 28 Anion Gap 8 BUN 21 H Creatinine 1.2 D POC Glucometer Random Glucose 94 D Calcium 7.9 L Phosphorus Magnesium Creatine Kinase 508 H Creatine Kinase Index 0.5 CK-MB (CK-2) 2.468 CK-MB (CK-2) Rel Index Troponin I 0.22 H D Random Vancomycin 10.163 11/11/16 11/11/16 05:05 05:41 WBC Corrected WBC (auto) RBC Hgb Hct MCV MCHC RDW Plt Count MPV Neutrophils % Lymphocytes % Monocytes % Eosinophils % Basophils % Differential Comment Smudge Cells Platelet Estimate Platelet Comment RBC Morphology Sodium Potassium Chloride Carbon Dioxide Anion Gap BUN Creatinine POC Glucometer 124.56035 Random Glucose Calcium Phosphorus Magnesium Creatine Kinase Creatine Kinase Index CK-MB (CK-2) CK-MB (CK-2) Rel Index Cancelled Troponin I Random Vancomycin ASSESSMENT AND PLAN: Diabetic Ketoacidosis/HHNK overlap Severe Metabolic Acidosis improving Acute Respiratory Failure resolving Sepsis Lactic Acidosis resolved Acute Kidney Injury improving Shock resolved Thrombocytopenia -> ? related to Zosyn - Levaquin per ID - Glycemic control - PO as tolerated - monitor urine output, creatinine - ativan PRN for possible alcohol withdrawal - DVT/GI prophylaxis - Floor - Follow H&H Dr Macdonald CCTime 35"
[2016-11-12] MEDS: PANTOPRAZOLE SODIUM 100 ML IVPB SCH ×2 (09:08→21:52)
[2016-11-12] MEDS: LOSARTAN POTASSIUM 25 MG TABLET PO SCH (09:08)
[2016-11-12] MEDS: METOPROLOL TARTRATE 25 MG TABLET (FP) PO SCH (09:08)
[2016-11-12] MEDS: LACTOBACILLUS ACIDOPHILUS 1 EACH TAB (FP) PO SCH ×2 (09:08→21:55)
[2016-11-12] MEDS: LEVOFLOXACIN 250 MG IVPB 50 ML IVPB SCH (10:01)
[2016-11-12] MEDS: SODIUM CHLORIDE 0.45% 1,000 ML IV SCH ×2 (12:09→19:00)
--- NOTE | 2016-11-12 20:39 | PN ---
Progress Note, Physician - Current Medication List Current Medications: Active Medications Pantoprazole Sodium (Protonix 40mg Ivpb (Pre-Docked)) 100 mls @ 200 mls/hr IVPB BID [facility] Last Admin: 11/12/16 09:08 Dose: 200 mls/hr Potassium Chloride/Sodium Chloride (1/2ns+20meq Kcl) 1,000 mls @ 70 mls/hr [facility] Levofloxacin (Levaquin 250 Mg Premixed Ivpb -) 50 mls @ 50 mls/hr IVPB DAILY [facility] Last Admin: 11/12/16 10:01 Dose: 50 mls/hr Sodium Chloride (1/2 Normal Saline) 1,000 mls @ 83 mls/hr IV ASDIR [facility] Last Admin: 11/12/16 12:09 Dose: 83 mls/hr Insulin Aspart (Novolog Vial Sliding Scale -) 1 vial SQ ACHS [facility] PRN Reason: Protocol Last Admin: 11/12/16 16:57 Dose: 6 units Insulin Detemir (Levemir Vial) 8 units SQ BIDI [facility] Last Admin: 11/12/16 16:57 Dose: 8 units Lactobacillus Acidophilus (Bacid -) 1 tab PO BID [facility] Last Admin: 11/12/16 09:08 Dose: 1 tab Lorazepam (Ativan Injection -) 2 mg IVPUSH Q2H PRN PRN Reason: AGITATION Last Admin: 11/10/16 02:17 Dose: 2 mg Losartan Potassium (Cozaar -) 25 mg PO DAILY [facility] Last Admin: 11/12/16 09:08 Dose: 25 mg Methadone HCl 40 mg/ Methadone (HCl 20 mg) 60 mg PO DAILY@0600 [facility] Last Admin: 11/12/16 06:05 Dose: 60 mg Metoprolol Tartrate (Lopressor -) 25 mg PO DAILY [facility] Last Admin: 11/12/16 09:08 Dose: 25 mg - Objective Vital Signs: Vital Signs Temperature 98.5 F 11/12/16 18:00 Pulse Rate 82 11/12/16 18:00 Respiratory Rate 12 11/12/16 18:00 Blood Pressure 122/79 11/12/16 18:00 O2 Sat by Pulse Oximetry (%) 100 11/12/16 10:00 Labs: CBC, BMP 11/11/16 05:05 11/12/16 05:00 INR, PTT INR 1.06 (0.82-1.09) 11/11/16 11:11
--- NOTE | 2016-11-12 23:02 | PN ---
Progress Note (short form) - Note Progress Note: Current Active Problems DKA (diabetic ketoacidosis) (Acute) Hypoglycemia (Acute) Insulin dependent diabetes mellitus (Chronic) blood sugars stable appetite improving,will need adjustment insulin dose as diet improves Abnormal Lab Results 11/12/16 05:00 Random Glucose 119 H D Calcium 7.6 L Laboratory Results - last 24 hr 11/11/16 11/12/16 11/12/16 22:27 05:00 05:22 Sodium 142 Potassium 3.6 Chloride 107 Carbon Dioxide 27 Anion Gap 8 BUN 14 D Creatinine 1.0 POC Glucometer 213.60413 147.39334 Random Glucose 119 H D Calcium 7.6 L 11/12/16 11/12/16 11:48 16:24 Sodium Potassium Chloride Carbon Dioxide Anion Gap BUN Creatinine POC Glucometer 359.42140 [phone] Random Glucose Calcium Current Medications Generic Name Dose Route Start Last Admin Trade Name Freq PRN Reason Stop Dose Admin Pantoprazole Sodium 100 mls @ 200 mls/hr 11/08/16 22:00 11/12/16 21:52 Protonix 40mg Ivpb (Pre-Docked) IVPB 200 mls/hr BID LAMAR Administration Potassium Chloride/Sodium Chloride 1,000 mls @ 70 mls/hr 11/08/16 22:00 1/2ns+20meq Kcl IV ASDIR LAMAR Levofloxacin 50 mls @ 50 mls/hr 11/11/16 10:00 11/12/16 10:01 Levaquin 250 Mg Premixed Ivpb - IVPB 50 mls/hr DAILY LAMAR Administration Sodium Chloride 1,000 mls @ 83 mls/hr 11/10/16 19:00 11/12/16 19:00 1/2 Normal Saline IV 83 mls/hr ASDIR LAMAR Administration Insulin Aspart 1 vial 11/09/16 17:09 11/12/16 21:51 Novolog Vial Sliding Scale - SQ Not Given ACHS LAMAR Protocol Insulin Detemir 8 units 11/10/16 17:50 11/12/16 16:57 Levemir Vial SQ 8 units BIDI LAMAR Administration Lactobacillus Acidophilus 1 tab 11/11/16 11:15 11/12/16 21:55 Bacid - PO 1 tab BID LAMAR Administration Lorazepam 2 mg 11/10/16 00:09 11/10/16 02:17 Ativan Injection - IVPUSH 2 mg Q2H PRN Administration AGITATION Losartan Potassium 25 mg 11/10/16 15:45 11/12/16 09:08 Cozaar - PO 25 mg DAILY LAMAR Administration Methadone HCl 40 mg/ Methadone 60 mg 11/09/16 14:15 11/12/16 06:05 HCl 20 mg PO 60 mg DAILY@0600 LAMAR Administration Metoprolol Tartrate 25 mg 11/11/16 10:15 11/12/16 09:08 Lopressor - PO 25 mg DAILY LAMAR Administration continue bgm qid novolog dose continue levemir 8 units bid Problem List - Problems (1) Insulin dependent diabetes mellitus Code(s): E11.9 - TYPE 2 DIABETES MELLITUS WITHOUT COMPLICATIONS Z79.4 - RETIREMENT (CURRENT) USE OF INSULIN (2) Chronic use of opiate for therapeutic purpose Code(s): Z79.899 - OTHER RETIREMENT (CURRENT) DRUG THERAPY (3) DKA (diabetic ketoacidosis) Code(s): E13.10 - OTH DIABETES MELLITUS WITH KETOACIDOSIS WITHOUT COMA
[2016-11-13] MEDS ORDERED: METHADONE HCL 40 MG DISPERSABLE TABLET ONE (05:15)
[2016-11-13] MEDS ORDERED: METHADONE HCL 10 MG TABLET ONE (05:15)
[2016-11-13] MEDS: METHADONE 40 MG, METHADONE 20 MG PO SCH (06:07)
[2016-11-13] MEDS: INSULIN SLIDING SCALE (NOVOLOG) 1 VIAL SQ SCH ×4 (06:08→21:38)
[2016-11-13] MEDS: INSULIN DETEMIR 100 UNITS/ML MDV SQ SCH ×2 (06:10→16:27)
[2016-11-13 06:20] LABS: BASOPHIL 0.2 % (0-2.0); EOSINOPHIL 0.8 % (0-4.5); MCHC 33.4 g/dl (32.0-35.9); MEAN CELL VOLUME 89.9 fl (80-96); MEAN PLT VOLUME 10.2 fl (7.5-11.1); NEUTROPHILS 49.5 % (42.8-82.8); PLATELET COUNT 95 K/MM3 (134-434); WHITE BLOOD COUNT 5.8 K/mm3 (4.0-10.0)
[2016-11-13 06:45] LABS: ALBUMIN 2.1 g/dl (3.4-5.0); ANION GAP 9 (8-16); CALCIUM 7.4 mg/dL (8.5-10.1); CO2 26 mmol/L (21-32); GLUCOSE,RANDOM 73 mg/dL (74-106)
[2016-11-13 06:58] LABS: ALK PHOS 73 U/L (45-117); BILIRUBIN,TOTAL 0.4 mg/dL (0.2-1.0); SGOT/AST 35 U/L (15-37); SGPT/ALT 17 U/L (12-78); THYROID STIMULATING HORMONE 1.76 uIU/ml (0.358-3.74); TOT PROT 4.9 g/dl (6.4-8.2)
--- NOTE | 2016-11-13 07:40 | PN ---
Progress Note, Physician Chief Complaint: ID IV Levofloxacin day 2 Afebrile offering no complaints - Current Medication List Current Medications: Active Medications Pantoprazole Sodium (Protonix 40mg Ivpb (Pre-Docked)) 100 mls @ 200 mls/hr IVPB BID [facility] Last Admin: 11/12/16 21:52 Dose: 200 mls/hr Potassium Chloride/Sodium Chloride (1/2ns+20meq Kcl) 1,000 mls @ 70 mls/hr IV ASDIR [facility] Levofloxacin (Levaquin 250 Mg Premixed Ivpb -) 50 mls @ 50 mls/hr IVPB DAILY [facility] Last Admin: 11/12/16 10:01 Dose: 50 mls/hr Sodium Chloride (1/2 Normal Saline) 1,000 mls @ 83 mls/hr IV ASDIR [facility] Last Admin: 11/12/16 19:00 Dose: 83 mls/hr Insulin Aspart (Novolog Vial Sliding Scale -) 1 vial SQ ACHS [facility] PRN Reason: Protocol Last Admin: 11/13/16 06:08 Dose: Not Given Insulin Detemir (Levemir Vial) 8 units SQ BIDI [facility] Last Admin: 11/13/16 06:10 Dose: 8 units Lactobacillus Acidophilus (Bacid -) 1 tab PO BID [facility] Last Admin: 11/12/16 21:55 Dose: 1 tab Losartan Potassium (Cozaar -) 25 mg PO DAILY [facility] Last Admin: 11/12/16 09:08 Dose: 25 mg Methadone HCl 40 mg/ Methadone (HCl 20 mg) 60 mg PO DAILY@0600 [facility] Last Admin: 11/13/16 06:07 Dose: 60 mg Metoprolol Tartrate (Lopressor -) 25 mg PO DAILY [facility] Last Admin: 11/12/16 09:08 Dose: 25 mg - Objective Vital Signs: Vital Signs Temperature 99.0 F 11/13/16 06:00 Pulse Rate 74 11/13/16 06:00 Respiratory Rate 13 11/13/16 06:00 Blood Pressure 133/92 11/13/16 06:00 O2 Sat by Pulse Oximetry (%) 100 11/12/16 21:00 Constitutional: Yes: No Distress HENT: No: Thrush Cardiovascular: Yes: Regular Rate and Rhythm, S1, S2. No: Murmur Respiratory: Yes: Regular, CTA Bilaterally. No: Rales, Rhonchi Gastrointestinal: Yes: WNL, Normal Bowel Sounds, Soft. No: Tenderness, Tenderness, Rebound Extremities: No: Cold, Cool, Cyanosis Edema: No Labs: CBC, BMP 11/13/16 05:20 11/13/16 05:20 INR, PTT INR 1.06 (0.82-1.09) 11/11/16 11:11 Assessment/Plan Microbiology 11/09/16 00:30 Sputum - Endotrachea Suction/Ventilator Gram Stain - Final 11/09/16 00:30 Sputum - Endotrachea Suction/Ventilator Sputum Culture - Final Yeast Like Organism 11/08/16 06:57 Urine - Urine Dc Urine Culture - Final NO GROWTH OBTAINED 11/08/16 06:47 Blood - Peripheral Venous Blood Culture - Final NO GROWTH AFTER 5 DAYS INCUBATION 11/08/16 06:47 Blood - Peripheral Venous Blood Culture - Final NO GROWTH AFTER 5 DAYS INCUBATION Laboratory Tests 11/08/16 11/13/16 11/13/16 06:57 05:20 05:20 WBC 5.8 D Hgb 8.4 L D Hct 25.2 L Plt Count 95 L D BUN 11 D Creatinine 1.0 Creat Clearance w eGFR > 60 Urine RBC 7 Urine WBC 6 Assessment Sepsis unknown source cultures negative day 5 antibiotic Plan Change oral levoflox 500mg daily for 2 doses Kindly recall as needed Platelets ? cirrhosis related Hep C Boris CLAIRE
--- NOTE | 2016-11-13 08:15 | PN ---
Physical Exam: SUBJECTIVE: Patient seen and examined at bed side. AAox3 much more alert today. sitting up and eating comfortably. patient reports mild through soreness attributes it to being intubated. No overnight events. Denies fevers, chills, N/V/c/d, Cp, sob, OBJECTIVE: Vital Signs Period Temp Pulse Resp BP Sys/Foley Pulse Ox Last 24 Hr 98.3 F-99.1 F 70-82 12-22 95-133/61-92 98-100 GENERAL: The patient is awake, alert, and fully oriented, in no acute distress. sitting up eating confortably. HEAD: Normal with no signs of trauma. EYES: extraocular movements intact, sclera anicteric, conjunctiva clear. No ptosis. ENT: Ears normal, nares patent, oropharynx clear without exudates, moist mucous membranes. NECK: Trachea midline, full range of motion, supple. LUNGS: Breath sounds equal, clear to auscultation bilaterally , decreased breath sounds bilateral bases, no wheezes, no crackles, no accessory muscle use. HEART: Regular rate and rhythm, S1, S2 without murmur, rub or gallop. ABDOMEN: Soft, nontender, nondistended, normoactive bowel sounds, no guarding, no rebound, no hepatosplenomegaly, no masses. EXTREMITIES: 2+ pulses, warm, well-perfused, no edema. NEUROLOGICAL: Cranial nerves II through XII grossly intact. Normal speech, gait not observed. PSYCH: Normal mood, normal affect. Laboratory Results - last 24 hr 11/11/16 11/12/16 11/12/16 22:27 05:22 11:48 WBC RBC Hgb Hct MCV MCHC RDW Plt Count MPV Neutrophils % Lymphocytes % Monocytes % Eosinophils % Basophils % Sodium Potassium Chloride Carbon Dioxide Anion Gap BUN Creatinine Creat Clearance w eGFR POC Glucometer 213.25751 147.41306 [phone] Random Glucose Calcium Total Bilirubin AST ALT Alkaline Phosphatase Total Protein Albumin TSH Free T4 11/12/16 11/12/16 11/13/16 16:24 21:40 05:20 WBC 5.8 D RBC 2.81 L Hgb 8.4 L D Hct 25.2 L MCV 89.9 MCHC 33.4 RDW 14.0 Plt Count 95 L D MPV 10.2 Neutrophils % 49.5 D Lymphocytes % 32.9 D Monocytes % 16.6 H Eosinophils % 0.8 D Basophils % 0.2 Sodium Potassium Chloride Carbon Dioxide Anion Gap BUN Creatinine Creat Clearance w eGFR POC Glucometer 251.93888 87.37091 Random Glucose Calcium Total Bilirubin AST ALT Alkaline Phosphatase Total Protein Albumin TSH Free T4 11/13/16 11/13/16 11/13/16 05:20 05:20 05:41 WBC RBC Hgb Hct MCV MCHC RDW Plt Count MPV Neutrophils % Lymphocytes % Monocytes % Eosinophils % Basophils % Sodium 140 Potassium 3.9 Chloride 105 Carbon Dioxide 26 Anion Gap 9 BUN 11 D Creatinine 1.0 Creat Clearance w eGFR > 60 POC Glucometer 109.41510 Random Glucose 73 L D Calcium 7.4 L Total Bilirubin 0.4 D AST 35 D ALT 17 D Alkaline Phosphatase 73 Total Protein 4.9 L Albumin 2.1 L D TSH 1.76 D Free T4 1.11 Active Medications Generic Name Dose Route Start Last Admin Trade Name Freq PRN Reason Stop Dose Admin Pantoprazole Sodium 100 mls @ 200 mls/hr 11/08/16 22:00 11/12/16 21:52 Protonix 40mg Ivpb (Pre-Docked) IVPB 200 mls/hr BID LAMAR Administration Potassium Chloride/Sodium Chloride 1,000 mls @ 70 mls/hr 11/08/16 22:00 1/2ns+20meq Kcl IV ASDIR LAMAR Levofloxacin 50 mls @ 50 mls/hr 11/11/16 10:00 11/12/16 10:01 Levaquin 250 Mg Premixed Ivpb - IVPB 50 mls/hr DAILY LAMAR Administration Sodium Chloride 1,000 mls @ 83 mls/hr 11/10/16 19:00 11/12/16 19:00 1/2 Normal Saline IV 83 mls/hr ASDIR LAMAR Administration Insulin Aspart 1 vial 11/09/16 17:09 11/13/16 06:08 Novolog Vial Sliding Scale - SQ Not Given ACHS [facility] Protocol Insulin Detemir 8 units 11/10/16 17:50 11/13/16 06:10 Levemir Vial SQ 8 units BIDI LAMAR Administration Lactobacillus Acidophilus 1 tab 11/11/16 11:15 11/12/16 21:55 Bacid - PO 1 tab BID LAMAR Administration Losartan Potassium 25 mg 11/10/16 15:45 11/12/16 09:08 Cozaar - PO 25 mg DAILY LAMAR Administration Methadone HCl 40 mg/ Methadone 60 mg 11/09/16 14:15 11/13/16 06:07 HCl 20 mg PO 60 mg DAILY@0600 LAMAR Administration Metoprolol Tartrate 25 mg 11/11/16 10:15 11/12/16 09:08 Lopressor - PO 25 mg DAILY LAMAR Administration ASSESSMENT/PLAN: 66M past medical history of hypertension, HLD, hep C that was treated, and insulin-dependent diabetes on metformin and 70/30 novolog 30 units bid who presents to the ED via ambulance for lethargy and AMS. found to have BS of 1326, AG 50, lactic acid 15, +2 aceton, Found to be in DKA but intubated for respiratory distress from severe acidosis. DKA: Sever metabolic acidosis and acute respiratory Acidosis Resp failure- resolved- Gap closed. ISS levamire finger sticks q4h Thrombocytopenia: improving, possible B-lactam induced thrombocytopenia Sever sepsis: leukocytosis/ bandemia/hypothermia/ tachycardia/ possible sepsis/ hypotension Lactic Acidosis trend Empiric antibiotics follow cultures switch PO Levofloxacin 01/17, one more dose tomorrow. Acute Kidney Injury 2/2 prerenal Azotemia- improving, hypovolemia vs sepsis vs ATN IVF Urine lytes urine osmolarity monitor urine output, creatinine Gross hematurea: resolved- d/c huertas NSTEMI: mildly elevated troponin-denies chest pain.-Likely secondary to sepsis/ demand ischemia cardiomiopathy: -euvolemic, no sign of CHF, no peripheral edema noted -ASA initially held due to hematuria and dropping platelets, has been resumed -tolerating metoprolol well, cont current dose for now -Will need ischemic evaluation prior to d/c w stress MIBI if not done recently as outpatient per cardiology. -if no recent stress test done will plan for likely tomorrow for likely persantine nuclear stress test per cardiology Hepatitis C carrier- patient reports has been treated. ID on board Heroin use: urine tox screen + opoids and methadone on chronic methadone, continue 60mg daily 6am. monitor for signs of withdrawal Alcohol withdrawl: family reports he does not drink heavily anymore and he has stopped drinking two months ago. - Ativan PRN for possible alcohol withdrawal hypophosphatemia replete FEN replete electrolytes as needed diabetic na controlled diet oral hydration DVT/GI prophylaxis - SCD - Pantoprazole dispo: transfer to med-surg Visit type - Emergency Visit Emergency Visit: Yes ED Registration Date: 11/08/16 Care time: The patient presented to the Emergency Department on the above date and was hospitalized for further evaluation of their emergent condition. - New Patient This patient is new to me today: No - Critical Care Critical Care patient: Yes Total Critical Care Time (in minutes): 44 Critical Care Statement: The care of this patient involved high complexity decision making to prevent further life threatening deterioration of the patient 's condition and/or to evalute & treat vital organ system(s) failure or risk of failure.
[2016-11-13] MEDS: LACTOBACILLUS ACIDOPHILUS 1 EACH TAB (FP) PO SCH ×2 (09:05→21:27)
[2016-11-13] MEDS: LOSARTAN POTASSIUM 25 MG TABLET PO SCH (09:05)
[2016-11-13] MEDS: PANTOPRAZOLE SODIUM 100 ML IVPB SCH ×2 (09:05→21:41)
[2016-11-13] MEDS: METOPROLOL TARTRATE 25 MG TABLET (FP) PO SCH (09:05)
[2016-11-13] MEDS: LEVOFLOXACIN 250 MG IVPB 50 ML IVPB SCH (10:01)
[2016-11-13] MEDS ORDERED: LEVOFLOXACIN 500 MG TABLET (FP) PO SCH (11:45)
--- NOTE | 2016-11-13 11:55 | PN ---
Teaching Attending Note Name of Resident: Michelle Anna ATTENDING PHYSICIAN STATEMENT I saw and evaluated the patient. I reviewed the resident's note and discussed the case with the resident. I agree with the resident's findings and plan as documented. SUBJECTIVE: Pt seen and examined in the ICU. Much more alert, awake today. No fevers or chills. Tolerating PO. OBJECTIVE: Last Vital Signs Temp Pulse Resp BP Pulse Ox 99.0 F 97 H 18 130/82 98 11/13/16 10:00 11/13/16 10:52 11/13/16 10:00 11/13/16 10:00 11/13/16 10:52 Intake & Output 11/10/16 11/11/16 11/12/16 11/13/16 23:59 23:59 23:59 23:59 Intake Total 2795 2992 3899 1493 Output Total 2600 1800 1800 1400 Balance 195 1192 2099 93 Weight 154 lb 8.705 oz 149 lb 7.574 oz 155 lb 9.6 oz 155 lb 9.6 oz Gen: NAD in chair Heart: RRR Lung: decreased breath sounds at the bases Abd: soft, nontender Ext: no edema CBC, BMP 11/13/16 05:20 11/13/16 05:20 Active Medications Aspirin (Ecotrin -) 81 mg PO DAILY [facility] Pantoprazole Sodium (Protonix 40mg Ivpb (Pre-Docked)) 100 mls @ 200 mls/hr IVPB BID [facility] Last Admin: 11/13/16 09:05 Dose: 200 mls/hr Potassium Chloride/Sodium Chloride (1/2ns+20meq Kcl) 1,000 mls @ 70 mls/hr IV ASDIR [facility]AMAR Levofloxacin (Levaquin 250 Mg Premixed Ivpb -) 50 mls @ 50 mls/hr IVPB DAILY [facility] Last Admin: 11/13/16 10:01 Dose: 50 mls/hr Insulin Aspart (Novolog Vial Sliding Scale -) 1 vial SQ ACHS [facility] PRN Reason: Protocol Last Admin: 11/13/16 10:51 Dose: 10 units Insulin Detemir (Levemir Vial) 8 units SQ BIDI [facility] Last Admin: 11/13/16 06:10 Dose: 8 units Lactobacillus Acidophilus (Bacid -) 1 tab PO BID [facility] Last Admin: 11/13/16 09:05 Dose: 1 tab Levofloxacin (Levaquin -) 500 mg PO DAILY [facility] Stop: 11/15/16 11:44 Losartan Potassium (Cozaar -) 25 mg PO DAILY [facility] Last Admin: 11/13/16 09:05 Dose: 25 mg Methadone HCl 40 mg/ Methadone (HCl 20 mg) 60 mg PO DAILY@0600 [facility] Last Admin: 11/13/16 06:07 Dose: 60 mg Metoprolol Tartrate (Lopressor -) 25 mg PO DAILY [facility] Last Admin: 11/13/16 09:05 Dose: 25 mg ASSESSMENT AND PLAN: Diabetic Ketoacidosis/HHNK overlap resolved Severe Metabolic Acidosis resolved s/p Acute Respiratory Failure r/o Sepsis Lactic Acidosis resolved Acute Kidney Injury improving Shock resolved - empiric antibiotics per ID, d/c after tomorrow's dosse - d/c IVF - monitor urine output, creatinine - PO as tolerated - glucose control - DVT/GI prophylaxis - can monitor on floor
[2016-11-13] MEDS ORDERED: ASPIRIN COATED 81 MG TABLET.EC ONE (11:58)
[2016-11-13] MEDS ORDERED: ASPIRIN COATED 81 MG TABLET.EC PO SCH (12:00)
--- NOTE | 2016-11-13 12:07 | PN ---
Progress Note, Physician History of Present Illness: seen and examined today in nad. awake, alert, oriented, sitting in chair in ICU. no overnight events. no new complaints. denies any chest pain or sob. - Current Medication List Current Medications: Active Medications Aspirin (Ecotrin -) 81 mg PO DAILY [facility] Last Admin: 11/13/16 11:58 Dose: 81 mg Pantoprazole Sodium (Protonix 40mg Ivpb (Pre-Docked)) 100 mls @ 200 mls/hr IVPB BID [facility] Last Admin: 11/13/16 09:05 Dose: 200 mls/hr Potassium Chloride/Sodium Chloride (1/2ns+20meq Kcl) 1,000 mls @ 70 mls/hr IV ASDIR [facility] Levofloxacin (Levaquin 250 Mg Premixed Ivpb -) 50 mls @ 50 mls/hr IVPB DAILY [facility] Last Admin: 11/13/16 10:01 Dose: 50 mls/hr Insulin Aspart (Novolog Vial Sliding Scale -) 1 vial SQ ACHS [facility] PRN Reason: Protocol Last Admin: 11/13/16 10:51 Dose: 10 units Insulin Detemir (Levemir Vial) 8 units SQ BIDI [facility] Last Admin: 11/13/16 06:10 Dose: 8 units Lactobacillus Acidophilus (Bacid -) 1 tab PO BID [facility] Last Admin: 11/13/16 09:05 Dose: 1 tab Levofloxacin (Levaquin -) 500 mg PO DAILY [facility] Stop: 11/15/16 11:44 Last Admin: 11/13/16 11:55 Dose: Not Given Losartan Potassium (Cozaar -) 25 mg PO DAILY [facility] Last Admin: 11/13/16 09:05 Dose: 25 mg Methadone HCl 40 mg/ Methadone (HCl 20 mg) 60 mg PO DAILY@0600 [facility] Last Admin: 11/13/16 06:07 Dose: 60 mg Metoprolol Tartrate (Lopressor -) 25 mg PO DAILY [facility] Last Admin: 11/13/16 09:05 Dose: 25 mg - Objective Vital Signs: Vital Signs Temperature 99.0 F 11/13/16 10:00 Pulse Rate 97 H 11/13/16 10:52 Respiratory Rate 18 11/13/16 10:00 Blood Pressure 130/82 11/13/16 10:00 O2 Sat by Pulse Oximetry (%) 98 11/13/16 10:52 Constitutional: Yes: Well Nourished, No Distress, Calm Eyes: Yes: WNL, Conjunctiva Clear, EOM Intact, PERRL HENT: Yes: WNL, Atraumatic, Normocephalic Neck: Yes: WNL, Supple, Trachea Midline Cardiovascular: Yes: Regular Rate and Rhythm, S1, S2. No: Bradycardia, Tachycardia, Pulse Irregular, Bruit, JVD, Gallop, Murmur, Rub, S3, S4, Varicosities Respiratory: Yes: WNL, Regular, CTA Bilaterally. No: Rales, Rhonchi, Wheezes Gastrointestinal: Yes: WNL, Normal Bowel Sounds, Soft. No: Distention, Tenderness Musculoskeletal: Yes: WNL Extremities: Yes: WNL Edema: No Peripheral Pulses WNL: Yes Peripheral Pulses: Left Doralis Pedis: 2+, Right Dorsalis Pedis: 2+ Integumentary: Yes: WNL Neurological: Yes: WNL, Alert, Oriented, Cran Nerves II-XII Intact ...Motor Strength: WNL Psychiatric: Yes: WNL, Alert, Oriented Labs: CBC, BMP 11/13/16 05:20 11/13/16 05:20 INR, PTT INR 1.06 (0.82-1.09) 11/11/16 11:11 - ....Imaging Chest X-ray: Report Reviewed, Image Reviewed EKG: Report Reviewed, Image Reviewed Other: Report Reviewed, Image Reviewed (tele-NSR, no arrhythmias) Assessment/Plan Respiratory failure secondary to PNA, extubated DKA, resolved NSTEMI Respiratory failure-secondary to DKA, now extubated -as per CCM -euvolemic, no sign of CHF -suspected PNA and sepsis, tx with Abx NSTEMI: mildly elevated troponin -no reported chest pain -Likely secondary to sepsis/demand ischemia -ASA initially held due to hematuria and dropping platelets, has been resumed -f/up Echo today -tolerating metoprolol well, cont current dose for now -Will need ischemic evaluation prior to d/c w stress MIBI if not done recently as outpatient, will check office for records -if no recent stress test done will plan for likely tomorrow for likely persantine nuclear stress test
--- NOTE | 2016-11-13 15:39 | CONSULT ---
Consult Detox [facility] Reason for Current Admission/Consult: Opioid dependence on agonist therapy Referred by:: Michelle Anna Res - History History of Present Illness: 66 y/o pt. currently on methadone 60mg daily at our [facility]. Pt. was admitted because of AMS. See H&P for hx. of current illness. - History Source History Provided By: Patient, Medical Record Limitations to Obtaining History: No Limitations - Alcohol/Substance Use Hx Alcohol Use: Yes - Past Medical History Cardio/Vascular: Yes: HTN, Hyperlipdemia Hepatobiliary: Yes: Hepatitis C Infectious Disease: Yes: HIV Endocrine: Yes: Diabetes Mellitus - Significant Medical Findings: Laboratory Results - last 24 hr 11/11/16 11/12/16 11/12/16 22:27 05:22 11:48 WBC RBC Hgb Hct MCV MCHC RDW Plt Count MPV Neutrophils % Lymphocytes % Monocytes % Eosinophils % Basophils % Sodium Potassium Chloride Carbon Dioxide Anion Gap BUN Creatinine Creat Clearance w eGFR POC Glucometer 213.83044 147.86968 359.63480 Random Glucose Calcium Total Bilirubin AST ALT Alkaline Phosphatase Total Protein Albumin TSH Free T4 11/12/16 11/12/16 11/13/16 16:24 21:40 05:20 WBC 5.8 D RBC 2.81 L Hgb 8.4 L D Hct 25.2 L MCV 89.9 MCHC 33.4 RDW 14.0 Plt Count 95 L D MPV 10.2 Neutrophils % 49.5 D Lymphocytes % 32.9 D Monocytes % 16.6 H Eosinophils % 0.8 D Basophils % 0.2 Sodium Potassium Chloride Carbon Dioxide Anion Gap BUN Creatinine Creat Clearance w eGFR POC Glucometer 251.86791 87.18619 Random Glucose Calcium Total Bilirubin AST ALT Alkaline Phosphatase Total Protein Albumin TSH Free T4 11/13/16 11/13/16 11/13/16 05:20 05:20 05:41 WBC RBC Hgb Hct MCV MCHC RDW Plt Count MPV Neutrophils % Lymphocytes % Monocytes % Eosinophils % Basophils % Sodium 140 Potassium 3.9 Chloride 105 Carbon Dioxide 26 Anion Gap 9 BUN 11 D Creatinine 1.0 Creat Clearance w eGFR > 60 POC Glucometer 109.98061 Random Glucose 73 L D Calcium 7.4 L Total Bilirubin 0.4 D AST 35 D ALT 17 D Alkaline Phosphatase 73 Total Protein 4.9 L Albumin 2.1 L D TSH 1.76 D Free T4 1.11 11/13/16 10:46 WBC RBC Hgb Hct MCV MCHC RDW Plt Count MPV Neutrophils % Lymphocytes % Monocytes % Eosinophils % Basophils % Sodium Potassium Chloride Carbon Dioxide Anion Gap BUN Creatinine Creat Clearance w eGFR POC Glucometer 392.03884 Random Glucose Calcium Total Bilirubin AST ALT Alkaline Phosphatase Total Protein Albumin TSH Free T4 labs noted Assessment Plan - Plan Plan: Continue methadone 60mg daily. - Medication Detox Regimen/Protocol: Methadone (MMTP)
[2016-11-13] MEDS ORDERED: ACETAMINOPHEN 325 MG TABLET (FP) PO ONE (21:29)
--- NOTE | 2016-11-13 23:38 | PN ---
Progress Note, Physician - Current Medication List Current Medications: Active Medications Aspirin (Ecotrin -) 81 mg PO DAILY [facility] Pantoprazole Sodium (Protonix 40mg Ivpb (Pre-Docked)) 100 mls @ 200 mls/hr IVPB BID [facility] Last Admin: 11/13/16 21:41 Dose: 200 mls/hr Insulin Aspart (Novolog Vial Sliding Scale -) 1 vial SQ ACHS [facility] PRN Reason: Protocol Last Admin: 11/13/16 21:38 Dose: 2 units Insulin Detemir (Levemir Vial) 8 units SQ BIDI [facility] Last Admin: 11/13/16 16:27 Dose: 8 units Lactobacillus Acidophilus (Bacid -) 1 tab PO BID [facility] Last Admin: 11/13/16 21:27 Dose: 1 tab Levofloxacin (Levaquin -) 500 mg PO DAILY [facility] Stop: 11/15/16 11:44 Losartan Potassium (Cozaar -) 25 mg PO DAILY [facility] Methadone HCl 40 mg/ Methadone (HCl 20 mg) 60 mg PO DAILY@0600 [facility] Metoprolol Tartrate (Lopressor -) 25 mg PO DAILY [facility] - Objective Vital Signs: Vital Signs Temperature 99.2 F 11/13/16 17:46 Pulse Rate 70 11/13/16 22:00 Respiratory Rate 13 11/13/16 22:00 Blood Pressure 140/84 11/13/16 22:00 O2 Sat by Pulse Oximetry (%) 98 11/13/16 20:35 Labs: CBC, BMP 11/13/16 05:20 11/13/16 05:20 INR, PTT INR 1.06 (0.82-1.09) 11/11/16 11:11
[2016-11-14] MEDS ORDERED: ACETAMINOPHEN 325 MG TABLET (FP) ONE (01:56)
[2016-11-14 06:17] LABS: BASOPHIL 0.3 % (0-2.0); EOSINOPHIL 1.2 % (0-4.5); MCH 29.6 pg (25.7-33.7); MCHC 33.2 g/dl (32.0-35.9); MEAN CELL VOLUME 89.2 fl (80-96); MEAN PLT VOLUME 9.9 fl (7.5-11.1); NEUTROPHILS 51.2 % (42.8-82.8); PLATELET COUNT 131 K/MM3 (134-434); RDW 13.8 % (11.9-15.9)
[2016-11-14] MEDS ORDERED: METHADONE HCL 40 MG DISPERSABLE TABLET ONE (06:23)
[2016-11-14] MEDS ORDERED: METHADONE HCL 10 MG TABLET ONE (06:23)
[2016-11-14] MEDS: METHADONE 40 MG, METHADONE 20 MG PO SCH (06:24)
[2016-11-14] MEDS: INSULIN DETEMIR 100 UNITS/ML MDV SQ SCH ×2 (06:25→16:49)
[2016-11-14 06:56] LABS: ALBUMIN 2.2 g/dl (3.4-5.0); ANION GAP 9 (8-16); CALCIUM 7.7 mg/dL (8.5-10.1); CO2 27 mmol/L (21-32); GLUCOSE,RANDOM 57 mg/dL (74-106); MAGNESIUM 1.6 mg/dL (1.8-2.4)
[2016-11-14 06:59] LABS: ALK PHOS 79 U/L (45-117); BILIRUBIN,TOTAL 0.4 mg/dL (0.2-1.0); CREATININE 0.9 mg/dL (0.7-1.3); PHOSPHOROUS 3.3 mg/dL (2.5-4.9); SGOT/AST 48 U/L (15-37); SGPT/ALT 20 U/L (12-78); TOT PROT 5.1 g/dl (6.4-8.2)
[2016-11-14] MEDS: INSULIN SLIDING SCALE (NOVOLOG) 1 VIAL SQ SCH ×4 (07:15→21:51)
--- NOTE | 2016-11-14 07:45 | EKG ---
Test Reason : Blood Pressure : / mmHG Vent. Rate : 072 BPM Atrial Rate : 072 BPM P-R Int : 134 ms QRS Dur : 076 ms QT Int : 480 ms P-R-T Axes : 040 -37 -51 degrees QTc Int : 525 ms NORMAL SINUS RHYTHM LEFT AXIS DEVIATION INFERIOR INFARCT , AGE UNDETERMINED T WAVE ABNORMALITY, CONSIDER INFEROLATERAL ISCHEMIA PROLONGED QT ABNORMAL ECG WHEN COMPARED WITH ECG OF 11-NOV-2016 08:20, NO SIGNIFICANT CHANGE WAS FOUND IS NOW PRESENT Confirmed by CATARINA CORONEL MD ([id number]) on 11/14/2016 7:45:11 AM Referred By: Laurie TORRES Confirmed By:CATARINA CORONEL MD
[2016-11-14] MEDS ORDERED: WATER IVPB ONE (10:00)
[2016-11-14] MEDS ORDERED: DEXTROSE 5% IVPB ONE (10:00)
[2016-11-14] MEDS ORDERED: LEVOFLOXACIN 500 MG TABLET (FP) PO SCH (10:00)
[2016-11-14] MEDS ORDERED: DIPYRIDAMOLE STRESS TEST IVPB ONE (10:00)
--- NOTE | 2016-11-14 10:07 | PN ---
Progress Note, Physician Chief Complaint: seen and examined in cardiology dept Alert and oriented, no complaints TELE: reviewed in ICU--NSR History of Present Illness: Echo: normal LV function with mild MR, eccentric - Current Medication List Current Medications: Active Medications Aspirin (Ecotrin -) 81 mg PO DAILY [facility] Pantoprazole Sodium (Protonix 40mg Ivpb (Pre-Docked)) 100 mls @ 200 mls/hr IVPB BID [facility] Last Admin: 11/13/16 21:41 Dose: 200 mls/hr Insulin Aspart (Novolog Vial Sliding Scale -) 1 vial SQ ACHS [facility] PRN Reason: Protocol Last Admin: 11/14/16 07:15 Dose: Not Given Insulin Detemir (Levemir Vial) 8 units SQ BIDI [facility] Last Admin: 11/14/16 06:25 Dose: 8 units Lactobacillus Acidophilus (Bacid -) 1 tab PO BID [facility] Last Admin: 11/13/16 21:27 Dose: 1 tab Levofloxacin (Levaquin -) 500 mg PO DAILY [facility] Stop: 11/15/16 11:44 Losartan Potassium (Cozaar -) 25 mg PO DAILY [facility] Methadone HCl 40 mg/ Methadone (HCl 20 mg) 60 mg PO DAILY@0600 [facility] Last Admin: 11/14/16 06:24 Dose: 60 mg Metoprolol Tartrate (Lopressor -) 25 mg PO DAILY [facility] - Objective Vital Signs: Vital Signs Temperature 97.9 F 11/14/16 08:00 Pulse Rate 70 11/14/16 08:00 Respiratory Rate 17 11/14/16 08:00 Blood Pressure 138/84 11/14/16 08:00 O2 Sat by Pulse Oximetry (%) 98 11/14/16 08:00 Constitutional: Yes: No Distress Eyes: Yes: Conjunctiva Clear Cardiovascular: Yes: Regular Rate and Rhythm Respiratory: Yes: CTA Bilaterally Gastrointestinal: Yes: Soft (non-tender) Edema: No Neurological: Yes: Alert ...Motor Strength: WNL Labs: CBC, BMP 11/14/16 05:05 11/14/16 06:00 INR, PTT INR 1.06 (0.82-1.09) 11/11/16 11:11 Laboratory Tests 11/08/16 11/10/16 11/10/16 05:42 17:00 21:45 WBC Hgb Hct Plt Count Sodium Potassium Creatinine Creatine Kinase 125 677 H D 523 H D Troponin I < 0.02 0.59 H D 0.40 H D 11/11/16 11/14/16 11/14/16 05:05 05:05 06:00 WBC 6.0 Hgb 8.0 L Hct 24.2 L Plt Count 131 L D Sodium 141 Potassium 3.4 L Creatinine 0.9 Creatine Kinase 508 H Troponin I 0.22 H D - ....Imaging EKG: Image Reviewed Assessment/Plan Assessment/Plan Respiratory failure secondary to PNA, extubated DKA, resolved NSTEMI Chronic anemia Respiratory failure-secondary to DKA, now extubated -as per CCM -euvolemic, no sign of CHF -suspected PNA and sepsis, tx with Abx NSTEMI: mildly elevated troponin -no reported chest pain -Likely secondary to sepsis/demand ischemia -ASA initially held due to hematuria and dropping platelets, has been resumed -echo with overall normal LV function -tolerating metoprolol well, cont current dose for now -for persantine MIBI today.
[2016-11-14] MEDS: LACTOBACILLUS ACIDOPHILUS 1 EACH TAB (FP) PO SCH ×2 (12:17→21:43)
[2016-11-14] MEDS: LOSARTAN POTASSIUM 25 MG TABLET PO SCH (12:17)
[2016-11-14] MEDS: ASPIRIN COATED 81 MG TABLET.EC PO SCH (12:18)
[2016-11-14] MEDS: METOPROLOL TARTRATE 25 MG TABLET (FP) PO SCH (12:18)
[2016-11-14] MEDS: PANTOPRAZOLE SODIUM 100 ML IVPB SCH ×2 (12:19→21:44)
--- NOTE | 2016-11-14 12:27 | PN ---
Teaching Attending Note Name of Resident: Michelle Anna ATTENDING PHYSICIAN STATEMENT I saw and evaluated the patient. I reviewed the resident's note and discussed the case with the resident. I agree with the resident's findings and plan as documented. SUBJECTIVE: Pt seen and examined in the ICU. Denies shortness of breath or chest pain. Dark stools overnight. OBJECTIVE: Last Vital Signs Temp Pulse Resp BP Pulse Ox 97.9 F 70 17 138/84 98 11/14/16 08:00 11/14/16 08:00 11/14/16 08:00 11/14/16 08:00 11/14/16 08:00 Intake & Output 11/11/16 11/12/16 11/13/16 11/14/16 23:59 23:59 23:59 23:59 Intake Total 2992 3899 3805 Output Total 1800 1800 2900 Balance 1192 2099 905 Weight 149 lb 7.574 oz 155 lb 9.6 oz 155 lb 9.6 oz 155 lb 3.287 oz Gen: NAD at rest Heart: RRR Lung: decreased breath sounds at the bases Abd: soft, nontender Ext: no edema CBC, BMP 11/14/16 05:05 11/14/16 06:00 Active Medications Aspirin (Ecotrin -) 81 mg PO DAILY [facility] Last Admin: 11/14/16 12:18 Dose: 81 mg Pantoprazole Sodium (Protonix 40mg Ivpb (Pre-Docked)) 100 mls @ 200 mls/hr IVPB BID [facility] Last Admin: 11/14/16 12:19 Dose: 200 mls/hr Insulin Aspart (Novolog Vial Sliding Scale -) 1 vial SQ ACHS [facility] PRN Reason: Protocol Last Admin: 11/14/16 11:03 Dose: Not Given Insulin Detemir (Levemir Vial) 8 units SQ BIDI [facility] Last Admin: 11/14/16 06:25 Dose: 8 units Lactobacillus Acidophilus (Bacid -) 1 tab PO BID [facility] Last Admin: 11/14/16 12:17 Dose: 1 tab Levofloxacin (Levaquin -) 500 mg PO DAILY [facility] Stop: 11/15/16 11:44 Last Admin: 11/14/16 12:18 Dose: 500 mg Losartan Potassium (Cozaar -) 25 mg PO DAILY [facility] Last Admin: 11/14/16 12:17 Dose: 25 mg Methadone HCl 40 mg/ Methadone (HCl 20 mg) 60 mg PO DAILY@0600 [facility] Last Admin: 11/14/16 06:24 Dose: 60 mg Metoprolol Tartrate (Lopressor -) 25 mg PO DAILY [facility] Last Admin: 11/14/16 12:18 Dose: 25 mg ASSESSMENT AND PLAN: Diabetic Ketoacidosis/HHNK overlap resolved Severe Metabolic Acidosis resolved s/p Acute Respiratory Failure r/o Sepsis Lactic Acidosis resolved Acute Kidney Injury improving Shock resolved - can d/c antibiotics - monitor urine output, creatinine - f/u stress test - check stool guaiac - PO as tolerated - glucose control - DVT/GI prophylaxis - can monitor on floor
--- NOTE | 2016-11-14 13:46 | PN ---
Physical Exam: SUBJECTIVE: Patient seen and examined at bed side in ICU. AAox3 patient reports mild through soreness attributes it to being intubated. Dark stools overnight x2. Denies fevers, chills, N/V/c/d, Cp, sob, tele NS over night. for persantine MIBI today. OBJECTIVE: Vital Signs Period Temp Pulse Resp BP Sys/Foley Pulse Ox Last 24 Hr 97.9 F-99.2 F 64-82 10-18 107-161/80-102 98-98 GENERAL: The patient is awake, alert, and fully oriented, in no acute distress. sitting up eating comfortably. HEAD: Normal with no signs of trauma. EYES: extraocular movements intact, sclera anicteric, conjunctiva clear. No ptosis. ENT: Ears normal, nares patent, oropharynx clear without exudates, moist mucous membranes. NECK: Trachea midline, full range of motion, supple. LUNGS: Breath sounds equal, clear to auscultation bilaterally , decreased breath sounds bilateral bases, no wheezes, no crackles, no accessory muscle use. HEART: Regular rate and rhythm, S1, S2 without murmur, rub or gallop. ABDOMEN: Soft, nontender, nondistended, normoactive bowel sounds, no guarding, no rebound, no hepatosplenomegaly, no masses. EXTREMITIES: 2+ pulses, warm, well-perfused, no edema. NEUROLOGICAL: Cranial nerves II through XII grossly intact. Normal speech, gait not observed. PSYCH: Normal mood, normal affect. Laboratory Results - last 24 hr 11/13/16 11/13/16 11/14/16 16:21 21:27 05:05 WBC 6.0 RBC 2.72 L Hgb 8.0 L Hct 24.2 L MCV 89.2 MCHC 33.2 RDW 13.8 Plt Count 131 L D MPV 9.9 Neutrophils % 51.2 Lymphocytes % 28.9 Monocytes % 18.4 H Eosinophils % 1.2 Basophils % 0.3 Sodium Potassium Chloride Carbon Dioxide Anion Gap BUN Creatinine Creat Clearance w eGFR POC Glucometer [phone] Random Glucose Calcium Phosphorus Magnesium Total Bilirubin AST ALT Alkaline Phosphatase Total Protein Albumin 11/14/16 06:00 WBC RBC Hgb Hct MCV MCHC RDW Plt Count MPV Neutrophils % Lymphocytes % Monocytes % Eosinophils % Basophils % Sodium 141 Potassium 3.4 L Chloride 105 Carbon Dioxide 27 Anion Gap 9 BUN 9 Creatinine 0.9 Creat Clearance w eGFR > 60 POC Glucometer Random Glucose 57 L D Calcium 7.7 L Phosphorus 3.3 D Magnesium 1.6 L D Total Bilirubin 0.4 AST 48 H D ALT 20 Alkaline Phosphatase 79 Total Protein 5.1 L Albumin 2.2 L Active Medications Generic Name Dose Route Start Last Admin Trade Name Freq PRN Reason Stop Dose Admin Aspirin 81 mg 11/14/16 10:00 11/14/16 12:18 Ecotrin - PO 81 mg DAILY [facility] Administration Pantoprazole Sodium 100 mls @ 200 mls/hr 11/13/16 22:00 11/14/16 12:19 Protonix 40mg Ivpb (Pre-Docked) IVPB 200 mls/hr BID [facility] Administration Insulin Aspart 1 vial 11/13/16 16:30 11/14/16 11:03 Novolog Vial Sliding Scale - SQ Not Given ACHS [facility] Protocol Insulin Detemir 8 units 11/13/16 16:30 11/14/16 06:25 Levemir Vial SQ 8 units BIDI [facility] Administration Lactobacillus Acidophilus 1 tab 11/13/16 22:00 11/14/16 12:17 Bacid - PO 1 tab BID [facility] Administration Levofloxacin 500 mg 11/14/16 10:00 11/14/16 12:18 Levaquin - PO 11/15/16 11:44 500 mg DAILY [facility] Administration Losartan Potassium 25 mg 11/14/16 10:00 11/14/16 12:17 Cozaar - PO 25 mg DAILY [facility] Administration Methadone HCl 40 mg/ Methadone 60 mg 11/14/16 06:00 11/14/16 06:24 HCl 20 mg PO 60 mg DAILY@0600 [facility] Administration Metoprolol Tartrate 25 mg 11/14/16 10:00 11/14/16 12:18 Lopressor - PO 25 mg DAILY [facility] Administration -Echo: normal LV function with mild MR, eccentric ASSESSMENT/PLAN: 66M past medical history of hypertension, HLD, hep C that was treated, and insulin-dependent diabetes on metformin and 70/30 novolog 30 units bid who presents to the ED via ambulance for lethargy and AMS. found to have BS of 1326, AG 50, lactic acid 15, +2 aceton, Found to be in DKA but intubated for respiratory distress from severe acidosis. DKA: s/p Sever metabolic acidosis and acute respiratory Acidosis Resp failure- resolved- Gap closed. ISS levamire Thrombocytopenia: improving, possible B-lactam induced thrombocytopenia chronic Anemia: 2x dark stool - check stool guaiac - monitor h/H - follow transfusion criteria Sever sepsis: resolved Empiric antibiotics last day. PO Levofloxacin 7/7 d/c antibiotics today follow cultures Acute Kidney Injury 2/2 prerenal Azotemia- improving, hypovolemia vs sepsis vs ATN monitor urine output, creatinine Gross hematurea: resolved- d/c huertas, urinating well no Dysuria. NSTEMI: mildly elevated troponin-denies chest pain.-Likely secondary to sepsis/ demand ischemia cardiomiopathy: -euvolemic, no sign of CHF, no peripheral edema noted -ASA initially held due to hematuria and dropping platelets, has been resumed -tolerating metoprolol well, cont current dose for now -echo with overall normal LV function -for persantine MIBI today, follow results Hepatitis C carrier- patient reports has been treated. ID on board Heroin use: urine tox screen + opoids and methadone. no signs of withdraw on chronic methadone, continue 60mg daily 6am. monitor for signs of withdrawal Alcohol withdrawl: family reports he does not drink heavily anymore and he has stopped drinking two months ago. - Ativan PRN for possible alcohol withdrawal FEN replete electrolytes as needed diabetic na controlled diet oral hydration DVT/GI prophylaxis - SCD - Pantoprazole dispo: transfer to [facility]-surg Visit type - Emergency Visit Emergency Visit: Yes ED Registration Date: 11/08/16 Care time: The patient presented to the Emergency Department on the above date and was hospitalized for further evaluation of their emergent condition. - New Patient This patient is new to me today: No - Critical Care Critical Care patient: Yes Total Critical Care Time (in minutes): 46 Critical Care Statement: The care of this patient involved high complexity decision making to prevent further life threatening deterioration of the patient 's condition and/or to evalute & treat vital organ system(s) failure or risk of failure.
[2016-11-14] MEDS: MAGNESIUM OXIDE 400 MG TABLET (FP) PO SCH ×2 (15:24→21:43)
--- NOTE | 2016-11-14 17:30 | EKG ---
Test Reason : Blood Pressure : / mmHG Vent. Rate : 064 BPM Atrial Rate : 064 BPM P-R Int : 138 ms QRS Dur : 072 ms QT Int : 458 ms P-R-T Axes : 039 -43 -61 degrees QTc Int : 472 ms NORMAL SINUS RHYTHM LEFT AXIS DEVIATION T WAVE ABNORMALITY, CONSIDER INFEROLATERAL ISCHEMIA PROLONGED QT ABNORMAL ECG WHEN COMPARED WITH ECG OF 13-NOV-2016 08:42, EARLY TRANSITION OF R WAVE IN V2 T WAVE VARIATION VENT. RATE HAS DECREASED Confirmed by JANKI CARBALLO MD ([id number]) on 11/14/2016 5:30:02 PM Referred By: JAGUAR SPAULDING Confirmed By:JANKI CARBALLO MD
--- NOTE | 2016-11-14 17:41 | EKG ---
Test Reason : Blood Pressure : / mmHG Vent. Rate : 095 BPM Atrial Rate : 095 BPM P-R Int : 136 ms QRS Dur : 070 ms QT Int : 328 ms P-R-T Axes : 033 -29 -14 degrees QTc Int : 412 ms SINUS RHYTHM WITH OCCASIONAL PREMATURE VENTRICULAR COMPLEXES OTHERWISE NORMAL ECG WHEN COMPARED WITH ECG OF 12-NOV-2016 10:31, PREMATURE VENTRICULAR COMPLEXES ARE NOW PRESENT T WAVE VARIATION Confirmed by KAIT CLAIRE, JANKI ([id number]) on 11/14/2016 5:41:30 PM Referred By: SOPHIA BEE Confirmed By:JANKI CARBALLO MD
[2016-11-14 17:56] LABS: INR 1.11 (0.82-1.09); PROTHROMBIN TIME (PATIENT) 12.2 SEC (9.98-11.88)
[2016-11-14 17:59] LABS: ACTIVATED PTT 30.1 SECONDS (26.9-34.4)
[2016-11-14] MEDS ORDERED: INSULIN DETEMIR 100 UNITS/ML MDV SQ ONE (18:57)
--- NOTE | 2016-11-14 20:07 | PN ---
Progress Note, Physician - Current Medication List Current Medications: Active Medications Aspirin (Ecotrin -) 81 mg PO DAILY [facility] Last Admin: 11/14/16 12:18 Dose: 81 mg Pantoprazole Sodium (Protonix 40mg Ivpb (Pre-Docked)) 100 mls @ 200 mls/hr IVPB BID [facility] Last Admin: 11/14/16 12:19 Dose: 200 mls/hr Insulin Aspart (Novolog Vial Sliding Scale -) 1 vial SQ ACHS [facility] PRN Reason: Protocol Last Admin: 11/14/16 16:46 Dose: 4 units Insulin Detemir (Levemir Vial) 8 units SQ BIDI [facility] Last Admin: 11/14/16 16:49 Dose: 8 units Lactobacillus Acidophilus (Bacid -) 1 tab PO BID [facility] Last Admin: 11/14/16 12:17 Dose: 1 tab Losartan Potassium (Cozaar -) 25 mg PO DAILY [facility] Last Admin: 11/14/16 12:17 Dose: 25 mg Magnesium Oxide (Mag-Ox -) 400 mg PO BID [facility] Stop: 11/15/16 10:01 Last Admin: 11/14/16 15:24 Dose: 400 mg Methadone HCl 40 mg/ Methadone (HCl 20 mg) 60 mg PO DAILY@0600 [facility] Last Admin: 11/14/16 06:24 Dose: 60 mg Metoprolol Tartrate (Lopressor -) 25 mg PO DAILY [facility] Last Admin: 11/14/16 12:18 Dose: 25 mg Potassium Chloride (K-Dur -) 20 meq PO BID [facility] Stop: 11/15/16 10:01 - Objective Vital Signs: Vital Signs Temperature 98.5 F 11/14/16 15:32 Pulse Rate 72 11/14/16 15:32 Respiratory Rate 17 11/14/16 08:00 Blood Pressure 124/79 11/14/16 15:32 O2 Sat by Pulse Oximetry (%) 98 11/14/16 08:00 Constitutional: Yes: No Distress HENT: Yes: Atraumatic Neck: Yes: Supple Cardiovascular: Yes: Regular Rate and Rhythm Respiratory: Yes: Rhonchi Gastrointestinal: Yes: Normal Bowel Sounds Extremities: Yes: WNL Labs: CBC, BMP 11/14/16 05:05 11/14/16 06:00 INR, PTT INR 1.11 (0.82-1.09) 11/14/16 16:30 Problem List - Problems (1) DKA (diabetic ketoacidosis) Code(s): E13.10 - OTH DIABETES MELLITUS WITH KETOACIDOSIS WITHOUT COMA Assessment/Plan Assessment/Plan Respiratory failure secondary to PNA, extubated DKA, resolved NSTEMI Chronic anemia sepsis syndrome ADEEL PLAN PT STABLE CONTINUE CURRENT MEDS FOLLOW UP LABS ROUNDING FOR DR BEE
[2016-11-14] MEDS: POTASSIUM CHLORIDE TABS 20 MEQ TABLET.ER (FP) PO SCH (21:43)
[2016-11-15] MEDS ORDERED: METHADONE HCL 10 MG TABLET ONE (05:58)
[2016-11-15] MEDS ORDERED: METHADONE HCL 40 MG DISPERSABLE TABLET ONE (05:59)
[2016-11-15] MEDS: METHADONE 40 MG, METHADONE 20 MG PO SCH (06:19)
[2016-11-15] MEDS: INSULIN DETEMIR 100 UNITS/ML MDV SQ SCH ×2 (06:21→16:26)
[2016-11-15] MEDS: INSULIN SLIDING SCALE (NOVOLOG) 1 VIAL SQ SCH ×4 (06:26→21:39)
[2016-11-15 08:14] LABS: BASOPHIL 0.7 % (0-2.0); EOSINOPHIL 0.7 % (0-4.5); MCH 29.6 pg (25.7-33.7); MCHC 32.7 g/dl (32.0-35.9); MEAN CELL VOLUME 90.4 fl (80-96); NEUTROPHILS 50.7 % (42.8-82.8); PLATELET COUNT 158 K/MM3 (134-434); RDW 13.7 % (11.9-15.9); WHITE BLOOD COUNT 6.2 K/mm3 (4.0-10.0)
[2016-11-15 08:17] LABS: ALBUMIN 2.4 g/dl (3.4-5.0); CALCIUM 7.8 mg/dL (8.5-10.1); GLUCOSE,RANDOM 67 mg/dL (74-106)
[2016-11-15 08:22] LABS: ALK PHOS 81 U/L (45-117); BILIRUBIN,TOTAL 0.4 mg/dL (0.2-1.0); CO2 27 mmol/L (21-32); CREATININE 0.9 mg/dL (0.7-1.3); MAGNESIUM 1.8 mg/dL (1.8-2.4); SGOT/AST 39 U/L (15-37); SGPT/ALT 18 U/L (12-78); TOT PROT 5.6 g/dl (6.4-8.2)
--- NOTE | 2016-11-15 08:54 | PN ---
Progress Note, Physician Chief Complaint: Persantine w/ mild to moderate zone of inferior infarct w mild ischemia - Current Medication List Current Medications: Active Medications Aspirin (Ecotrin -) 81 mg PO DAILY [facility] Last Admin: 11/14/16 12:18 Dose: 81 mg Pantoprazole Sodium (Protonix 40mg Ivpb (Pre-Docked)) 100 mls @ 200 mls/hr IVPB BID [facility] Last Admin: 11/14/16 21:44 Dose: 200 mls/hr Insulin Aspart (Novolog Vial Sliding Scale -) 1 vial SQ ACHS [facility] PRN Reason: Protocol Last Admin: 11/15/16 06:26 Dose: Not Given Insulin Detemir (Levemir Vial) 8 units SQ BIDI [facility] Last Admin: 11/15/16 06:21 Dose: Not Given Lactobacillus Acidophilus (Bacid -) 1 tab PO BID [facility] Last Admin: 11/14/16 21:43 Dose: 1 tab Losartan Potassium (Cozaar -) 25 mg PO DAILY [facility] Last Admin: 11/14/16 12:17 Dose: 25 mg Magnesium Oxide (Mag-Ox -) 400 mg PO BID [facility] Stop: 11/15/16 10:01 Last Admin: 11/14/16 21:43 Dose: 400 mg Methadone HCl 40 mg/ Methadone (HCl 20 mg) 60 mg PO DAILY@0600 [facility] Last Admin: 11/15/16 06:19 Dose: 60 mg Metoprolol Tartrate (Lopressor -) 25 mg PO DAILY [facility] Last Admin: 11/14/16 12:18 Dose: 25 mg Potassium Chloride (K-Dur -) 20 meq PO BID [facility] Stop: 11/15/16 10:01 Last Admin: 11/14/16 21:43 Dose: 20 meq - Objective Vital Signs: Vital Signs Temperature 98.0 F 11/15/16 05:00 Pulse Rate 74 11/15/16 05:00 Respiratory Rate 20 11/15/16 05:00 Blood Pressure 130/85 11/15/16 05:00 O2 Sat by Pulse Oximetry (%) 98 11/14/16 21:00 Constitutional: Yes: No Distress, Calm Cardiovascular: Yes: Regular Rate and Rhythm Respiratory: Yes: CTA Bilaterally Gastrointestinal: Yes: Soft Edema: No Labs: CBC, BMP 11/15/16 06:30 11/15/16 06:30 INR, PTT INR 1.11 (0.82-1.09) 11/14/16 16:30 Laboratory Tests 11/15/16 06:30 Sodium 142 Potassium 3.6 Creatinine 0.9 Laboratory Tests 11/15/16 06:30 WBC 6.2 Hgb 8.5 L Plt Count 158 D Assessment/Plan Respiratory failure secondary to PNA, extubated DKA, resolved NSTEMI Chronic anemia Respiratory failure-secondary to DKA, now extubated -euvolemic, no sign of CHF -suspected PNA and sepsis, tx with Abx NSTEMI: mildly elevated troponin -no reported chest pain -ASA initially held due to hematuria and dropping platelets, has been resumed -echo with overall normal LV function -tolerating metoprolol well -stress test shows moderate sized inferior infarct with some ischemia and low normal EF -recommend cardiac cath- but need to assure guaiac negative (anemic) and will obtain renal evaluation today to assess risk of contrast nephropathy and reccs regarding pre cath optimization
[2016-11-15] MEDS: ASPIRIN COATED 81 MG TABLET.EC PO SCH (10:34)
[2016-11-15] MEDS: LACTOBACILLUS ACIDOPHILUS 1 EACH TAB (FP) PO SCH ×2 (10:34→21:37)
[2016-11-15] MEDS: METOPROLOL TARTRATE 25 MG TABLET (FP) PO SCH (10:34)
[2016-11-15] MEDS: MAGNESIUM OXIDE 400 MG TABLET (FP) PO SCH (10:34)
[2016-11-15] MEDS: LOSARTAN POTASSIUM 25 MG TABLET PO SCH (10:35)
[2016-11-15] MEDS: POTASSIUM CHLORIDE TABS 20 MEQ TABLET.ER (FP) PO SCH (10:35)
[2016-11-15] MEDS: PANTOPRAZOLE SODIUM 100 ML IVPB SCH (10:37)
--- NOTE | 2016-11-15 11:22 | CONSULT ---
Consult - text type - Consultation Consultation Note: Renal Consult for Contrast Nephropathy Prophylaxis and resolving ADEEL This is a 66 year old Gentleman with PMhx of Hypertension, Hepatitis C, Insulin Dependent DM who presented with AMS and found to have DKA, PNA with Respiratory failure requiring intubation, NSTEMI and ADEEL. Renal function now improved to baseline s/p IVF and blood glucose control. Pt with abnormal stress test and is planned for Cardiac Cath. Pt denies any hx of CKD, Nephrolithiasis. No flank pain. Denies any CP, sob, abd pain, PERRIN, N/V/D today. No fever or chills PMhx: as above Allergies: NKDA Family Hx: NC Social hx: Current Smoker ROS: as per HPI, all other ROS negative Home Meds: Home Medications Medication Instructions Recorded ASA - 81 mg PO DAILY 11/08/16 Hctz - 12.5 mg PO DAILY 11/08/16 Metformin Xr 100 mg PO 11/08/16 Novolog Flexpen SQ ACHS 11/08/16 Ranexa 500 mg PO DAILY 11/08/16 Vital Signs Temperature 98.2 F 11/15/16 09:00 Pulse Rate 67 11/15/16 09:00 Respiratory Rate 18 11/15/16 09:00 Blood Pressure 131/70 11/15/16 09:00 O2 Sat by Pulse Oximetry (%) 98 11/14/16 21:00 Intake & Output 11/12/16 11/13/16 11/14/16 11/15/16 23:59 23:59 23:59 23:59 Intake Total 3899 3805 580 100 Output Total 1800 2900 300 460 Balance 2099 905 280 -360 Weight 155 lb 9.6 oz 155 lb 9.6 oz 155 lb 3.287 oz 147 lb 8 oz Gen: NAD, awake and Alert. ON RA HEENT: NC/AT, No JVD, Neck Supple CVS: RRR, No M/R Lungs: CTA, no rales or wheeze Abd: soft NT/ND Ext: No edmea, clubbing or cyanosis : No bladder distension CBC, BMP 11/15/16 06:30 11/15/16 06:30 Laboratory Tests 11/08/16 11/10/16 11/15/16 06:57 21:45 06:30 MCV 89.9 Calcium 7.8 L Phosphorus 3.0 Magnesium 1.8 Albumin 2.4 L Urine Protein 1+ H Urine Glucose (UA) 3+ H Urine Ketones 1+ H Urine Blood 2+ H Current Medications Aspirin (Ecotrin -) 81 mg PO DAILY [facility] Last Admin: 11/15/16 10:34 Dose: 81 mg Pantoprazole Sodium (Protonix 40mg Ivpb (Pre-Docked)) 100 mls @ 200 mls/hr IVPB BID [facility] Last Admin: 11/14/16 21:44 Dose: 200 mls/hr Insulin Aspart (Novolog Vial Sliding Scale -) 1 vial SQ ACHS [facility] PRN Reason: Protocol Last Admin: 11/15/16 06:26 Dose: Not Given Insulin Detemir (Levemir Vial) 8 units SQ BIDI [facility] Last Admin: 11/15/16 06:21 Dose: Not Given Lactobacillus Acidophilus (Bacid -) 1 tab PO BID [facility] Last Admin: 11/15/16 10:34 Dose: 1 tab Losartan Potassium (Cozaar -) 25 mg PO DAILY [facility] Last Admin: 11/15/16 10:35 Dose: 25 mg Methadone HCl 40 mg/ Methadone (HCl 20 mg) 60 mg PO DAILY@0600 [facility] Last Admin: 11/15/16 06:19 Dose: 60 mg Metoprolol Tartrate (Lopressor -) 25 mg PO DAILY [facility] Last Admin: 11/15/16 10:34 Dose: 25 mg A/P 66 year old Gentleman with PMhx of Hypertension, Hepatitis C, Insulin Dependent DM who presented with AMS and found to have DKA, PNA with Respiratory failure requiring intubation, NSTEMI and ADEEL. #Acute Kidney Injury from intravascular Volume Depletion Renal function now improved to baseline start IVF for Contrast Nephropathy Prophylaxis Continue ARB Trend BUN/Cr #Contrast Nephropathy Risk Stratification/Prophylaxis Risk of DRAKE (> 25% increase in Cr) is 14% and risk of need for immediate dialysis is 0.12% These risks were explained to the patient and he expressed understanding Start NS at 75 cc per hour x 48 hours Mucomyst 1200mg BID x 4 doses #NSTEMI/Abnormal Stress Test For transfer to [facility] for [facility]iac Cath Cardiology following on ASA, BB, ARB #DKA/IDDM Continue insulin as per primary #PNA/Resp Failure Resp function stable no O2 requirement s/p extubation early this admission Thank you for this referral Will continue to follow Umberto Tipton DO
[2016-11-15] MEDS: SODIUM CHLORIDE 1,000 ML IV SCH (12:10)
[2016-11-15] MEDS: ACETYLCYSTEINE 20% 200MG/ML 30 ML VIAL *FOR ORAL / INH USE ONLY PO SCH ×2 (15:36→23:30)
--- NOTE | 2016-11-15 20:58 | PN ---
Progress Note, Physician Chief Complaint: labile blood sugars,low am and high after meals History of Present Illness: iddm,ckd,htn ashd awaiting cardiac cath jill styles given labile sugars will need am levemir dose adjustment - Current Medication List Current Medications: Active Medications Acetylcysteine (Mucomyst 20 Oral / Inh Use Only*) 1,200 mg PO Q12H [facility] Stop: 11/16/16 23:31 Last Admin: 11/15/16 15:36 Dose: 1,200 mg Aspirin (Ecotrin -) 81 mg PO DAILY [facility] Last Admin: 11/15/16 10:34 Dose: 81 mg Sodium Chloride (Normal Saline -) 1,000 mls @ 75 mls/hr IV ASDIR [facility] Last Admin: 11/15/16 12:10 Dose: 75 mls/hr Insulin Aspart (Novolog Vial Sliding Scale -) 1 vial SQ ACHS [facility] PRN Reason: Protocol Last Admin: 11/15/16 16:25 Dose: 10 units Insulin Detemir (Levemir Vial) 5 units SQ HS [facility] Insulin Detemir (Levemir Vial) 15 units SQ AM [facility] Lactobacillus Acidophilus (Bacid -) 1 tab PO BID [facility] Last Admin: 11/15/16 10:34 Dose: 1 tab Losartan Potassium (Cozaar -) 25 mg PO DAILY [facility] Last Admin: 11/15/16 10:35 Dose: 25 mg Methadone HCl 40 mg/ Methadone (HCl 20 mg) 60 mg PO DAILY@0600 [facility] Last Admin: 11/15/16 06:19 Dose: 60 mg Metoprolol Tartrate (Lopressor -) 25 mg PO DAILY [facility] Last Admin: 11/15/16 10:34 Dose: 25 mg Pantoprazole Sodium (Protonix -) 40 mg PO DAILY [facility] - Objective Vital Signs: Vital Signs Temperature 97.9 F 11/15/16 14:21 Pulse Rate 73 11/15/16 14:21 Respiratory Rate 18 11/15/16 09:00 Blood Pressure 120/72 11/15/16 14:21 O2 Sat by Pulse Oximetry (%) 100 11/15/16 09:00 Constitutional: Yes: Well Nourished Eyes: Yes: EOM Intact HENT: Yes: Normocephalic Neck: Yes: Trachea Midline Cardiovascular: Yes: Regular Rate and Rhythm Respiratory: Yes: CTA Bilaterally Gastrointestinal: Yes: Normal Bowel Sounds ...Rectal Exam: Yes: Deferred Genitourinary: Yes: WNL Breast(s): Yes: WNL Musculoskeletal: Yes: Muscle Weakness Extremities: Yes: WNL Edema: No Neurological: Yes: Alert, Oriented Labs: CBC, BMP 11/15/16 06:30 11/15/16 12:15 INR, PTT INR 1.11 (0.82-1.09) 11/14/16 16:30 Problem List - Problems (1) Insulin dependent diabetes mellitus Code(s): E11.9 - TYPE 2 DIABETES MELLITUS WITHOUT COMPLICATIONS Z79.4 - [employer] (CURRENT) USE OF INSULIN (2) Chronic use of opiate for therapeutic purpose Code(s): Z79.899 - OTHER [employer] (CURRENT) DRUG THERAPY (3) DKA (diabetic ketoacidosis) Code(s): E13.10 - OTH DIABETES MELLITUS WITH KETOACIDOSIS WITHOUT COMA Assessment/Plan Current Active Problems Hypoglycemia (Acute) Insulin dependent diabetes mellitus (Chronic) sp dka now resollved finding lablie sugars Abnormal Lab Results 11/15/16 11/15/16 11/15/16 06:30 06:30 12:15 RBC 2.89 L Hgb 8.5 L Hct 26.1 L Monocytes % 18.8 H BUN 6 L D Random Glucose 67 L 491 H* D Calcium 7.8 L AST 39 H Total Protein 5.6 L Albumin 2.4 L Laboratory Results - last 24 hr 11/14/16 11/14/16 11/14/16 05:53 12:27 21:50 WBC RBC Hgb Hct MCV MCHC RDW Plt Count MPV Neutrophils % Lymphocytes % Monocytes % Eosinophils % Basophils % Sodium Potassium Chloride Carbon Dioxide Anion Gap BUN Creatinine Creat Clearance w eGFR POC Glucometer 118.00002 140.05339 144 Random Glucose Calcium Phosphorus Magnesium Total Bilirubin AST ALT Alkaline Phosphatase Total Protein Albumin 11/15/16 11/15/16 11/15/16 06:23 06:30 06:30 WBC 6.2 RBC 2.89 L Hgb 8.5 L Hct 26.1 L MCV 90.4 MCHC 32.7 RDW 13.7 Plt Count 158 D MPV 9.0 Neutrophils % 50.7 Lymphocytes % 29.1 Monocytes % 18.8 H Eosinophils % 0.7 Basophils % 0.7 Sodium 142 Potassium 3.6 Chloride 104 Carbon Dioxide 27 Anion Gap Y BUN 6 L D Creatinine 0.9 Creat Clearance w eGFR > 60 POC Glucometer 59 Random Glucose 67 L Calcium 7.8 L Phosphorus 3.0 Magnesium 1.8 Total Bilirubin 0.4 AST 39 H ALT 18 Alkaline Phosphatase 81 Total Protein 5.6 L Albumin 2.4 L 11/15/16 11/15/16 11/15/16 11:30 11:54 12:15 WBC RBC Hgb Hct MCV MCHC RDW Plt Count MPV Neutrophils % Lymphocytes % Monocytes % Eosinophils % Basophils % Sodium Potassium Chloride Carbon Dioxide Anion Gap BUN Creatinine Creat Clearance w eGFR POC Glucometer 534 531 Random Glucose 491 H* D Calcium Phosphorus Magnesium Total Bilirubin AST ALT Alkaline Phosphatase Total Protein Albumin 11/15/16 16:20 WBC RBC Hgb Hct MCV MCHC RDW Plt Count MPV Neutrophils % Lymphocytes % Monocytes % Eosinophils % Basophils % Sodium Potassium Chloride Carbon Dioxide Anion Gap BUN Creatinine Creat Clearance w eGFR POC Glucometer 400 Random Glucose Calcium Phosphorus Magnesium Total Bilirubin AST ALT Alkaline Phosphatase Total Protein Albumin plan:\ levemir dose 15 am levemir lower dose 5hs bmg ac hs novolog coverage nutritionis preop ivfluid for procedure for hydration may need iv dextrose for procedure if npo
[2016-11-15] MEDS ORDERED: PT OWN MED DRAWER 7, Y5N ONE (21:33)
[2016-11-15] MEDS ORDERED: INSULIN (NOVOLOG) ASPART 100 UNITS/ML 10ML VIAL ONE (21:33)
[2016-11-15] MEDS ORDERED: INSULIN DETEMIR 100 UNITS/ML MDV SQ SCH (22:00)
--- NOTE | 2016-11-15 22:40 | PN ---
Progress Note, Physician - Current Medication List Current Medications: Active Medications Acetylcysteine (Mucomyst 20 Oral / Inh Use Only*) 1,200 mg PO Q12H [facility] Stop: 11/16/16 23:31 Last Admin: 11/15/16 15:36 Dose: 1,200 mg Aspirin (Ecotrin -) 81 mg PO DAILY [facility] [place] Last Admin: 11/15/16 10:34 Dose: 81 mg Sodium Chloride (Normal Saline -) 1,000 mls @ 75 mls/hr IV ASDIR [facility] [place] Last Admin: 11/15/16 12:10 Dose: 75 mls/hr Insulin Aspart (Novolog Vial Sliding Scale -) 1 vial SQ ACHS [facility] [place] PRN Reason: Protocol Last Admin: 11/15/16 21:39 Dose: 2 units Insulin Detemir (Levemir Vial) 5 units SQ HS [facility] [place] Last Admin: 11/15/16 21:38 Dose: Not Given Insulin Detemir (Levemir Vial) 15 units SQ AM [facility] [place] Lactobacillus Acidophilus (Bacid -) 1 tab PO BID [facility] [place] Last Admin: 11/15/16 21:37 Dose: 1 tab Losartan Potassium (Cozaar -) 25 mg PO DAILY [facility] [place] Last Admin: 11/15/16 10:35 Dose: 25 mg Methadone HCl 40 mg/ Methadone (HCl 20 mg) 60 mg PO DAILY@0600 [facility] [place] Last Admin: 11/15/16 06:19 Dose: 60 mg Metoprolol Tartrate (Lopressor -) 25 mg PO DAILY [facility] [place] Last Admin: 11/15/16 10:34 Dose: 25 mg Pantoprazole Sodium (Protonix -) 40 mg PO DAILY [facility] [place] - Objective Vital Signs: Vital Signs Temperature 98 F 11/15/16 20:58 Pulse Rate 73 11/15/16 20:58 Respiratory Rate 20 11/15/16 20:58 Blood Pressure 140/80 11/15/16 20:58 O2 Sat by Pulse Oximetry (%) 100 11/15/16 09:00 Labs: CBC, BMP 11/15/16 06:30 11/15/16 12:15 INR, PTT INR 1.11 (0.82-1.09) 11/14/16 16:30
[2016-11-16] MEDS: SODIUM CHLORIDE 1,000 ML IV SCH (02:19)
[2016-11-16 05:52] VITALS: BP 134/78; PULSE 70; TEMP 98.6
[2016-11-16] MEDS ORDERED: METHADONE HCL 10 MG TABLET ONE (05:53)
[2016-11-16] MEDS ORDERED: METHADONE HCL 40 MG DISPERSABLE TABLET ONE (05:54)
[2016-11-16] MEDS: METHADONE 40 MG, METHADONE 20 MG PO SCH (06:22)
[2016-11-16] MEDS: INSULIN SLIDING SCALE (NOVOLOG) 1 VIAL SQ SCH (06:23)
[2016-11-16] MEDS ORDERED: INSULIN DETEMIR 100 UNITS/ML MDV SQ SCH ×2 (07:00)
[2016-11-16 07:23] LABS: BASOPHIL 0.6 % (0-2.0); EOSINOPHIL 0.7 % (0-4.5); MCH 29.5 pg (25.7-33.7); MEAN CELL VOLUME 89.5 fl (80-96); MEAN PLT VOLUME 8.8 fl (7.5-11.1); NEUTROPHILS 44.6 % (42.8-82.8); PLATELET COUNT 182 K/MM3 (134-434); RDW 14.2 % (11.9-15.9); WHITE BLOOD COUNT 6.3 K/mm3 (4.0-10.0)
[2016-11-16 07:52] LABS: CALCIUM 7.5 mg/dL (8.5-10.1); CREATININE 0.7 mg/dL (0.7-1.3)
--- NOTE | 2016-11-16 08:49 | PN ---
Progress Note, Physician Chief Complaint: no distress - Current Medication List Current Medications: Active Medications Acetylcysteine (Mucomyst 20 Oral / Inh Use Only*) 1,200 mg PO Q12H [facility] Stop: 11/16/16 23:31 Last Admin: 11/15/16 23:30 Dose: 1,200 mg Aspirin (Ecotrin -) 81 mg PO DAILY [facility] Last Admin: 11/15/16 10:34 Dose: 81 mg Sodium Chloride (Normal Saline -) 1,000 mls @ 75 mls/hr IV ASDIR [facility] Last Admin: 11/16/16 02:19 Dose: 75 mls/hr Insulin Aspart (Novolog Vial Sliding Scale -) 1 vial SQ ACHS [facility] PRN Reason: Protocol Last Admin: 11/16/16 06:23 Dose: 6 units Insulin Detemir (Levemir Vial) 5 units SQ HS [facility] Last Admin: 11/15/16 21:38 Dose: Not Given Insulin Detemir (Levemir Vial) 15 units SQ AM [facility] Last Admin: 11/16/16 06:22 Dose: 15 units Lactobacillus Acidophilus (Bacid -) 1 tab PO BID [facility] Last Admin: 11/15/16 21:37 Dose: 1 tab Losartan Potassium (Cozaar -) 25 mg PO DAILY [facility] Last Admin: 11/15/16 10:35 Dose: 25 mg Methadone HCl 40 mg/ Methadone (HCl 20 mg) 60 mg PO DAILY@0600 [facility] Last Admin: 11/16/16 06:22 Dose: 60 mg Metoprolol Tartrate (Lopressor -) 25 mg PO DAILY [facility] Last Admin: 11/15/16 10:34 Dose: 25 mg Pantoprazole Sodium (Protonix -) 40 mg PO DAILY [facility] - Objective Vital Signs: Vital Signs Temperature 98.6 F 11/16/16 05:52 Pulse Rate 70 11/16/16 05:52 Respiratory Rate 20 11/16/16 05:52 Blood Pressure 134/78 11/16/16 05:52 O2 Sat by Pulse Oximetry (%) 97 11/15/16 21:00 Constitutional: Yes: Calm Eyes: Yes: Conjunctiva Clear Cardiovascular: Yes: Regular Rate and Rhythm Respiratory: Yes: CTA Bilaterally Gastrointestinal: Yes: Soft Edema: No Neurological: Yes: Alert ...Motor Strength: WNL Labs: CBC, BMP 11/16/16 06:30 11/16/16 06:30 INR, PTT INR 1.11 (0.82-1.09) 11/14/16 16:30 Laboratory Tests 11/16/16 11/16/16 06:30 06:30 WBC 6.3 Hgb 7.7 L Plt Count 182 Potassium 3.5 Creatinine 0.7 D Assessment/Plan Respiratory failure secondary to PNA, extubated DKA, resolved NSTEMI Chronic anemia Respiratory failure-secondary to DKA, now extubated -euvolemic, no sign of CHF -suspected PNA and sepsis, tx with Abx NSTEMI: mildly elevated troponin -no reported chest pain -ASA initially held due to hematuria and dropping platelets, has been resumed -echo with overall normal LV function -tolerating metoprolol well -stress test shows moderate sized inferior infarct with some ischemia and low normal EF -Cath recommended, creatinine normal Anemia: -Chronic -component of dilution -Plan is for transfer to [place] and cath when stool guaiac negative. Have discussed with accepting that this needs to be evaluated prior to cath and if found to be guaiac + he will need GI eval there
[2016-11-16] MEDS ORDERED: PANTOPRAZOLE 40 MG TABLET (FP) PO SCH (10:00)
[2016-11-16] MEDS: LOSARTAN POTASSIUM 25 MG TABLET PO SCH (10:17)
[2016-11-16] MEDS: LACTOBACILLUS ACIDOPHILUS 1 EACH TAB (FP) PO SCH (10:17)
[2016-11-16] MEDS: ASPIRIN COATED 81 MG TABLET.EC PO SCH (10:17)
[2016-11-16] MEDS: METOPROLOL TARTRATE 25 MG TABLET (FP) PO SCH (10:18)
--- NOTE | 2016-11-16 10:31 | PN ---
Progress Note (short form) - Note Progress Note: No CP or SOB. No acute events overnight. No occult bleeding noted. Intake & Output 11/13/16 11/14/16 11/15/16 11/16/16 23:59 23:59 23:59 23:59 Intake Total 3805 580 1000 1400 Output Total 2900 648 052 6868 Balance 905 280 540 100 Weight 155 lb 9.6 oz 155 lb 3.287 oz 147 lb 8 oz 151 lb Last Vital Signs Temp Pulse Resp BP Pulse Ox 98.6 F 70 20 134/78 97 11/16/16 05:52 11/16/16 05:52 11/16/16 05:52 11/16/16 05:52 11/15/16 21:00 Active Medications Acetylcysteine (Mucomyst 20 Oral / Inh Use Only*) 1,200 mg PO Q12H [facility] Stop: 11/16/16 23:31 Last Admin: 11/15/16 23:30 Dose: 1,200 mg Aspirin (Ecotrin -) 81 mg PO DAILY [facility] Last Admin: 11/16/16 10:17 Dose: 81 mg Sodium Chloride (Normal Saline -) 1,000 mls @ 75 mls/hr IV ASDIR [facility] Last Admin: 11/16/16 02:19 Dose: 75 mls/hr Insulin Aspart (Novolog Vial Sliding Scale -) 1 vial SQ ACHS [facility] PRN Reason: Protocol Last Admin: 11/16/16 06:23 Dose: 6 units Insulin Detemir (Levemir Vial) 5 units SQ HS [facility] Last Admin: 11/15/16 21:38 Dose: Not Given Insulin Detemir (Levemir Vial) 15 units SQ AM [facility] Last Admin: 11/16/16 06:22 Dose: 15 units Lactobacillus Acidophilus (Bacid -) 1 tab PO BID [facility] Last Admin: 11/16/16 10:17 Dose: 1 tab Losartan Potassium (Cozaar -) 25 mg PO DAILY [facility] Last Admin: 11/16/16 10:17 Dose: 25 mg Methadone HCl 40 mg/ Methadone (HCl 20 mg) 60 mg PO DAILY@0600 [facility] Last Admin: 11/16/16 06:22 Dose: 60 mg Metoprolol Tartrate (Lopressor -) 25 mg PO DAILY [facility] Last Admin: 11/16/16 10:18 Dose: 25 mg Pantoprazole Sodium (Protonix -) 40 mg PO DAILY [facility] Last Admin: 11/16/16 10:18 Dose: 40 mg Gen: NAD at rest Heart: RRR Lung: decreased breath sounds at the bases Abd: soft, nontender Ext: no edema Laboratory Results - last 24 hr 11/15/16 11/15/16 11/15/16 06:30 11:30 11:54 WBC RBC Hgb Hct MCV MCHC RDW Plt Count MPV Neutrophils % Lymphocytes % Monocytes % Eosinophils % Basophils % Sodium Potassium Chloride Carbon Dioxide Anion Gap Y BUN Creatinine POC Glucometer 534 531 Random Glucose Calcium 11/15/16 11/15/16 11/15/16 12:15 16:20 21:33 WBC RBC Hgb Hct MCV MCHC RDW Plt Count MPV Neutrophils % Lymphocytes % Monocytes % Eosinophils % Basophils % Sodium Potassium Chloride Carbon Dioxide Anion Gap BUN Creatinine POC Glucometer 400 163 Random Glucose 491 H* D Calcium 11/16/16 11/16/16 11/16/16 05:35 06:30 06:30 WBC 6.3 RBC 2.61 L Hgb 7.7 L Hct 23.4 L MCV 89.5 MCHC 33.0 RDW 14.2 Plt Count 182 MPV 8.8 Neutrophils % 44.6 Lymphocytes % 38.8 D Monocytes % 15.3 H Eosinophils % 0.7 Basophils % 0.6 Sodium 141 Potassium 3.5 Chloride 107 Carbon Dioxide 25 Anion Gap 9 BUN 7 Creatinine 0.7 D POC Glucometer 269 Random Glucose 59 L D Calcium 7.5 L ASSESSMENT AND PLAN: Diabetic Ketoacidosis/HHNK overlap resolved Severe Metabolic Acidosis resolved s/p Acute Respiratory Failure r/o Sepsis Lactic Acidosis resolved Acute Kidney Injury improving Shock resolved - Monitor off ABX - PO as tolerated - GI and cardiac workup ongoing - DVT/GI prophylaxis Dr Macdonald
== END 2016-11-16 11:05 | disposition short-term general hospital (02) | DRG 871 ==
LOC: JER 05:17 → JERBED 06:31 → JICU 08:20 → J6S 11-14 13:47
PROVIDERS: ADMIT Internal Medicine; ATTEND Internal Medicine
PROC: 5A1945Z Respiratory Ventilation, 24-96 Consecutive Hours (ICD-10-PCS; principal; 2016-11-08)
PROC: 0BH17EZ Insertion of Endotracheal Airway into Trachea, Via Natural or Artificial Opening (ICD-10-PCS; 2016-11-08)
PROC: 0YH933Z Insertion of Infusion Device into Right Lower Extremity, Percutaneous Approach (ICD-10-PCS; 2016-11-08)
PROC: 0T9B70Z Drainage of Bladder with Drainage Device, Via Natural or Artificial Opening (ICD-10-PCS; 2016-11-10)
DX: A41.9 Sepsis, unspecified organism (principal); J96.00 Acute respiratory failure, unspecified whether with hypoxia or hypercapnia; E13.10 Other specified diabetes mellitus with ketoacidosis without coma; I21.4 Non-ST elevation (NSTEMI) myocardial infarction; J18.9 Pneumonia, unspecified organism; N17.9 Acute kidney failure, unspecified; E87.4 Mixed disorder of acid-base balance; I42.9 Cardiomyopathy, unspecified; E87.0 Hyperosmolality and hypernatremia; R64 Cachexia; R57.9 Shock, unspecified; Z79.84 Long term (current) use of oral hypoglycemic drugs; Z21 Asymptomatic human immunodeficiency virus [HIV] infection status; E78.5 Hyperlipidemia, unspecified; B19.20 Unspecified viral hepatitis C without hepatic coma; F17.210 Nicotine dependence, cigarettes, uncomplicated; F11.10 Opioid abuse, uncomplicated; F10.10 Alcohol abuse, uncomplicated; I10 Essential (primary) hypertension; Z79.4 Long term (current) use of insulin; Z91.14 Patient's other noncompliance with medication regimen; E87.6 Hypokalemia; E83.39 Other disorders of phosphorus metabolism; R65.20 Severe sepsis without septic shock; R68.0 Hypothermia, not associated with low environmental temperature; D69.6 Thrombocytopenia, unspecified; Z68.21 Body mass index [BMI] 21.0-21.9, adult; Z79.899 Other long term (current) drug therapy; R45.1 Restlessness and agitation; R31.0 Gross hematuria; R00.0 Tachycardia, unspecified; R41.0 Disorientation, unspecified; T83.028A Displacement of other urinary catheter, initial encounter; R33.8 Other retention of urine; Y84.6 Urinary catheterization as the cause of abnormal reaction of the patient, or of later complication, without mention of misadventure at the time of the procedure
CPT/HCPCS: 36415; 36600; 71010-TC; 78452-TC; 80048; 80053; 80307; 81003; 81015; 82009; 82150; 82375; 82436; 82550; 82553; 82803; 82947; 83036; 83050; 83605; 83690; 83735; 83930; 83935; 84100; 84133; 84300; 84439; 84443; 84484; 85025; 85027; 85610; 85730; 87040; 87070; 87086; 87205; 93005; 93010; 93017; 93306-TC; 94002; 99285-25; A9502; G0480; J1245; J1644; J3480

== ENCOUNTER 2017-08-13 06:46 | Inpatient (IN) | payer MEDICARE, OTHER ==
[2017-08-13 06:58] VITALS: BMI 22.1
[2017-08-13] MEDS ORDERED: LORazepam 2 MG/ML SDV VIAL ONE (07:12)
--- NOTE | 2017-08-13 07:21 | PDOC ---
Attending Attestation - Medical Decision Making 08/13/17 09:17 Imaging: Chest XR Reported by: Dr. Isabel Review by: Dr. Fung Impression: No acute pathology at this time. Improvement since October study. Imaging: Head CT Reported by: Dr. Hankins Review by: Dr. Fung Impression: No intracranial hemorrhage is seen. There is no gross mass lesion. Mild periventricular microvascular ischemic gliosis. Involutional changes with mild ventricular dilation. There is almost complete fluid opacification of the right maxillary sinus which could be on the basis of acute sinusitis (versus recent sinus lavage). A small amount of fluid also seen within the left maxillary sinus. Imaging: CT Abdomen & Pelvis CT w/o contrast Reported by: Dr. Hankins Review by: Dr. Fung Impression: 0.2 cm nonobstructing left renal calculus. Diffuse hepatic steatosis. Diffuse colonic fecal retention which is probably moderate. Consulted with Dr. Macdonald at 9:16AM, who agrees with admission to ICU. <Polly Wilson - Last Filed: 08/13/17 11:01> - Resident Resident Name: Juan Luis Smith - ED Attending Attestation I have performed the following: I have examined & evaluated the patient, The case was reviewed & discussed with the resident, I agree w/resident's findings & plan, Exceptions are as noted - HPI HPI: 08/13/17 13:40 66 years old past medical history significant for insulin-dependent diabetes presents to the emergency department with history of abdominal pain drinking EtOH last night this morning found lethargic unresponsive. Upon arrival to the emergency Department patient had a witnessed generalized tonic-clonic seizure. 2mg ativan given. Pt. unable to provide additional history - Physicial Exam PE: 08/13/17 13:40 Vitals: Triage Vital signs reviewed General Appearance: Seizure, thin Head: Atraumatic, Eyes: Pupils equal reactive round, extraocular movement intact Neck: Supple;No Nucal rigidity Chest Wall: Nontender Cardiac: Regular rate and rhythym, no murmurs, no rubs, no gallops, Lungs: Clear to auscultation bilateral, good air movement bilaterally, Abdomen: Soft, non distended, normal bowel sounds, non tender to palpation Extremities: Full range of motion to all extremities, no cyanosis, clubbing, or edema Skin: Warm and dry, no rashes or lesions, no rash, no petechiae Neuro: Seizing, GTC - Critical Care Time Total Critical Care Time: 85 Critical Care Statement: The care of this patient involved high complexity decision making to prevent further life threatening deterioration of the patient 's condition and/or to evaluate & treat vital organ system(s) failure or risk of failure. - Medical Decision Making 08/13/17 12:20 History and examination consistent with severe DKA with coma and seizure as sequelae Patient hydrated with 4 L normal saline given 8 units of IV insulin after chemistry returned He was started on an insulin drip Head CT and abdominal CT negative for acute pathology. Initial seizure upon arrival to the emergency department treated with 2 mg of Ativan He is currently being maintained on insulin drip. Dr. Macdonald of the ICU has been consult it patient is accepted to the ICU for admission to admit pt. to ICU 08/13/17 13:38 08/13/17 16:51 <Lyndon Fung - Last Filed: 08/13/17 16:51> Heart Score/ECG Review #1 08/13/17 11:01 EKG performed at [7:02] demonstrates rate of [102], Sinus tachycardia. Possible left atrial enlargement. Left axis deviation. <Polly Wilson - Last Filed: 08/13/17 11:01>
[2017-08-13 07:42] LABS: VENOUS PC02 35.3 mmHg (38-52); VENOUS PO2 66.1 mmHg (28-48)
[2017-08-13 07:43] LABS: VENOUS PH 6.99 (7.32-7.42)
[2017-08-13 07:47] LABS: BASO % 0.4 % (0-2.0); HEMATOCRIT 40.5 % (35.4-49); HEMOGLOBIN 12.3 GM/dL (11.7-16.9); MCHC 30.4 g/dl (32.0-35.9); MEAN CELL VOLUME 95.3 fl (80-96); MEAN PLT VOLUME 10.2 fl (7.5-11.1); MONO % 5.7 % (3.8-10.2); NEUT % 81.9 % (42.8-82.8); PLATELET COUNT 185 K/MM3 (134-434); RBC 4.25 M/mm3 (4.00-5.60); RDW 15.6 % (11.9-15.9); WHITE BLOOD COUNT 14.6 K/mm3 (4.0-10.0)
[2017-08-13] MEDS ORDERED: SODIUM CHLORIDE 0.9% 1000 ML INFUS.BAG IV STA (07:47)
--- NOTE | 2017-08-13 08:16 | PDOC ---
History of Present Illness <Lyndon Fung - Last Filed: 08/13/17 10:13> - History of Present Illness Initial Comments: 08/13/17 11:47 The patient is a 66 year old male with a history of HIV, HTN, IDDM, Hep C who presents for evaluation of abdominal pain. The patient reports onset of crampy abdominal pain earlier this morning after drinking beer yesterday evening. The patient's fingerstick in triage was above the detectible range. The patient was initially alert and oriented x3 and then had a witnessed seizure in the ED. The patient's family reports that he has had seizures in the past with DKA and is not currently on any seizure medication. The patient's seizure lasted for approximately 3min before successful treatment with ativan. The patient is unable to cooperate with ROS due to a post ictal state. <Juan Luis Smith - Last Filed: 08/13/17 12:28> - General Chief Complaint: Blood Sugar Problem Stated Complaint: DIABETIC Time Seen by Provider: 08/13/17 07:18 Past History <Lyndon Fung - Last Filed: 08/13/17 10:13> - Past Medical History Anemia: No Asthma: No Cancer: No Cardiac Disorders: Yes (hx high bp, advised to get stents) CVA: No COPD: No CHF: No Dementia: No Diabetes: Yes GI Disorders: Yes (?ulcers) Disorders: No HTN: Yes Hypercholesterolemia: Yes Liver Disease: No Seizures: No Thyroid Disease: No - Surgical History Abdominal Surgery: No Appendectomy: No Cardiac Surgery: No Cholecystectomy: No Lung Surgery: No Neurologic Surgery: No Orthopedic Surgery: Yes (R knee surgery 01/25/12 = biopsy) - Suicide/Smoking/Psychosocial Hx Smoking History: Unknown if ever smoked Have you smoked in the past 12 months: No Number of Cigarettes Smoked Daily: 1 Cigars Per Day: 0 Information on smoking cessation initiated: No 'Breaking Loose' booklet given: 07/07/15 (given previous admission) Hx Alcohol Use: No Drug/Substance Use Hx: No Substance Use Type: Alcohol, Heroin Hx Substance Use Treatment: Yes ([facility],REHAB,DETOX) <Juan Luis Smith - Last Filed: 08/13/17 12:28> - Past Medical History Allergies/Adverse Reactions: Allergies Allergy/AdvReac Type Severity Reaction Status Date / Time No Known Drug Allergies Allergy Verified 08/13/17 06:55 pollen and dust Allergy Mild Itching Uncoded 08/13/17 06:55 weeds Allergy Mild Uncoded 08/13/17 06:55 Home Medications: Ambulatory Orders ASA - 81 mg PO DAILY 11/08/16 Hctz - 12.5 mg PO DAILY 11/08/16 Metformin Xr 100 mg PO 11/08/16 Novolog Flexpen SQ ACHS 11/08/16 Ranexa 500 mg PO DAILY 11/08/16 Methadone [Dolophine -] 60 mg PO DAILY 08/13/17 Review of Systems - Review of Systems Able to Perform ROS?: No (AMS) <Juan Luis Smith - Last Filed: 08/13/17 12:28> *Physical Exam - Vital Signs Last Vital Signs Temp Pulse Resp BP Pulse Ox 97.9 F 103 H 19 122/71 100 08/13/17 09:00 08/13/17 09:00 08/13/17 09:00 08/13/17 09:00 08/13/17 09:00 <Lyndon Fung - Last Filed: 08/13/17 10:13> - Vital Signs Last Vital Signs Temp Pulse Resp BP Pulse Ox 97.7 F 95 H 20 194/98 100 08/13/17 06:56 08/13/17 07:30 08/13/17 07:30 08/13/17 07:30 08/13/17 07:30 - Physical Exam Comments: 08/13/17 12:16 General Appearance: Nourished. Post-ictal. No Apparent Distress HEENT: EOMI, ALEN. Clear TM. No Pharyngeal Erythema, Tonsillar Exudate, Tonsillar Erythema Neck: No Cervical Lymphadenopathy Respiratory/Chest: Lungs Clear, Normal Breath Sounds. No Crackles, Rales, Rhonchi, Wheezing Cardiovascular: Regular Rhythm, Regular Rate. No Murmur, Gallops, Rubs Gastrointestinal/Abdominal: Normal Bowel Sounds, Soft. No Guarding, Rebound, Tenderness Musculoskeletal: No CVA Tenderness Extremity: Normal Capillary Refill Integumentary: Normal Color, Dry, Warm Neurologic: Post-ictal, Unable to adequately assess <Juan Luis Smith - Last Filed: 08/13/17 12:28> ED Treatment Course - LABORATORY CBC & Chemistry Diagram: 08/13/17 07:15 08/13/17 07:40 - ADDITIONAL ORDERS Additional order review: Laboratory Results 08/13/17 08/13/17 08/13/17 09:00 08:17 08:17 VBG pH POC VBG pCO2 POC VBG pO2 Mixed VBG HCO3 Sodium Potassium Chloride Carbon Dioxide Anion Gap BUN Creatinine Creat Clearance w eGFR Random Glucose Lactic Acid Calcium Phosphorus Magnesium Total Bilirubin AST ALT Alkaline Phosphatase Creatine Kinase Troponin I Total Protein Albumin Urine Color Urine Appearance Urine pH Ur Specific Sherman Urine Protein Urine Glucose (UA) Urine Ketones Urine Blood Urine Nitrite Urine Bilirubin Urine Urobilinogen Urine WBC (Auto) Urine RBC (Auto) Urine Bacteria Granular Casts Urine Mucus Salicylates 4.384 Opiates Screen Positive Methadone Screen Positive Acetaminophen 2.793 L Barbiturate Screen Negative Phencyclidine Screen Negative Ur Amphetamines Screen Negative MDMA (Ecstasy) Screen Negative Benzodiazepines Screen Negative Cocaine Screen Negative U Marijuana (THC) Screen Negative Alcohol, Quantitative < 5.0 Acetone, Qual Positive moderate 2+ 08/13/17 08/13/17 08/13/17 07:40 07:40 07:15 VBG pH POC VBG pCO2 POC VBG pO2 Mixed VBG HCO3 Sodium 131 L Potassium 5.3 H D Chloride 92 L D Carbon Dioxide 10 L D Anion Gap 29 H BUN 30 H D Creatinine 2.0 H D Creat Clearance w eGFR 33.49 Random Glucose 715 H* D Lactic Acid Calcium 10.0 D Phosphorus 8.0 H D Magnesium 2.6 H D Total Bilirubin 0.9 D AST 22 D ALT 20 Alkaline Phosphatase 104 D Creatine Kinase 91 Troponin I < 0.02 < 0.02 D Total Protein 8.6 H D Albumin 4.2 D Urine Color Ltyellow Urine Appearance Slcloudy Urine pH 5.0 Ur Specific Sherman 1.021 Urine Protein Negative Urine Glucose (UA) 3+ H Urine Ketones 2+ H Urine Blood 1+ H Urine Nitrite Negative Urine Bilirubin Negative Urine Urobilinogen Negative Urine WBC (Auto) 2 Urine RBC (Auto) 3 Urine Bacteria Rare Granular Casts 26 Urine Mucus Rare Salicylates Opiates Screen Methadone Screen Acetaminophen Barbiturate Screen Phencyclidine Screen Ur Amphetamines Screen MDMA (Ecstasy) Screen Benzodiazepines Screen Cocaine Screen U Marijuana (THC) Screen Alcohol, Quantitative Acetone, Qual 08/13/17 08/13/17 07:15 07:15 VBG pH 6.99 L* POC VBG pCO2 35.3 L POC VBG pO2 66.1 H Mixed VBG HCO3 8.1 L* Sodium Potassium Chloride Carbon Dioxide Anion Gap BUN Creatinine Creat Clearance w eGFR Random Glucose Lactic Acid 8.3 H* Calcium Phosphorus Magnesium Total Bilirubin AST ALT Alkaline Phosphatase Creatine Kinase Troponin I Total Protein Albumin Urine Color Urine Appearance Urine pH Ur Specific Sherman Urine Protein Urine Glucose (UA) Urine Ketones Urine Blood Urine Nitrite Urine Bilirubin Urine Urobilinogen Urine WBC (Auto) Urine RBC (Auto) Urine Bacteria Granular Casts Urine Mucus Salicylates Opiates Screen Methadone Screen Acetaminophen Barbiturate Screen Phencyclidine Screen Ur Amphetamines Screen MDMA (Ecstasy) Screen Benzodiazepines Screen Cocaine Screen U Marijuana (THC) Screen Alcohol, Quantitative Acetone, Qual 08/13/17 07:15 RBC 4.25 D MCV 95.3 MCHC 30.4 L RDW 15.6 MPV 10.2 D Neutrophils % 81.9 D Lymphocytes % 12.0 D Monocytes % 5.7 Eosinophils % 0.0 D Basophils % 0.4 - RADIOLOGY Radiology Studies Ordered: Category Date Time Status ABDOMEN & PELVIS CT W/O CONTR [CT] Stat CT Scan 08/13/17 07:[address] WITHOUT CONTRAST [CT] Stat CT Scan 08/13/17 07:18 Completed CHEST X-RAY PORTABLE* [RAD] Stat Radiology 08/13/17 07:48 Completed - Medications Given in the ED: ED Medications Discontinued Medications Generic Name Dose Route Start Last Admin Trade Name Freq PRN Reason Stop Dose Admin Sodium Chloride 1,000 mls @ 1,000 mls/hr 08/13/17 08:24 08/13/17 09:43 Normal Saline - IV 08/13/17 09:23 1,000 mls/hr ASDIR STA Administration Sodium Chloride 1,000 mls @ 1,000 mls/hr 08/13/17 08:25 08/13/17 09:00 Normal Saline - IV 08/13/17 09:24 1,000 mls/hr ASDIR STA Administration Insulin Human Regular 10 units 08/13/17 09:10 08/13/17 09:24 Novolin R Vial *For Ivpush Or Iv Drip Only* IVPUSH 08/13/17 09:11 10 units ONCE ONE Administration Lorazepam 2 mg 08/13/17 07:19 08/13/17 07:25 Ativan Injection - IVPUSH 08/13/17 07:20 2 mg ONCE ONE Administration Sodium Chloride 2,041 ml 08/13/17 07:47 08/13/17 08:00 Normal Saline - 30 ml/kg (2041 ml) 08/13/17 07:48 2,041 ml IV Administration ONCE STA <Lyndon Fung - Last Filed: 08/13/17 10:13> - LABORATORY CBC & Chemistry Diagram: 08/13/17 07:15 08/13/17 07:40 - ADDITIONAL ORDERS Additional order review: Laboratory Results 08/13/17 07:15 VBG pH 6.99 L* POC VBG pCO2 35.3 L POC VBG pO2 66.1 H Mixed VBG HCO3 8.1 L* - Medications Given in the ED: ED Medications Discontinued Medications Generic Name Dose Route Start Last Admin Trade Name Freq PRN Reason Stop Dose Admin Lorazepam 2 mg 08/13/17 07:19 08/13/17 07:25 Ativan Injection - IVPUSH 08/13/17 07:20 2 mg ONCE ONE Administration Sodium Chloride 2,041 ml 08/13/17 07:47 08/13/17 08:00 Normal Saline - 30 ml/kg (2041 ml) 08/13/17 07:48 2,041 ml IV Administration ONCE STA <Juan Luis Smith - Last Filed: 08/13/17 12:28> Medical Decision Making - Critical Care Time Total Critical Care Time (minutes): 45 Critical Care Statement: The care of this patient involved high complexity decision making to prevent further life threatening deterioration of the patient 's condition and/or to evaluate & treat vital organ system(s) failure or risk of failure. - Medical Decision Making 08/13/17 12:19 The patient is a 66 year old male with a history of HIV, HTN, IDDM, Hep C who presents for evaluation of abdominal pain. Differential includes but is not limited to: DKA, Intracranial process, infectious, metabolic derangement. Given the patient's history of DKA related seizures, it is likely his current seizure and abdominal complaints are due to DKA. His initial seizure was treated with 2mg of Ativan. Head and abdominal CT is negative for any acute pathology as read by our radiologist. The patient's cmp was notable for a glucose of 750 with an anion gap of 29 with a PH of 6.99 on vbg consistent with DKA. The patient has gotten 5 liters of normal saline and has been placed on an insulin drip. We discussed the case with Dr. Gonzalez who accepted the patient for ICU admission and has been consulted. We discussed the case with Dr. Hernandez who accepted the patient's admission. We will continue to monitor and reassess here in the ED. <Juan Luis Smith - Last Filed: 08/13/17 12:28> *DC/Admit/Observation/Transfer - Discharge Dispostion Admit: Yes <Lyndon Fung - Last Filed: 08/13/17 10:13> <Juan Luis Smith - Last Filed: 08/13/17 12:28> Diagnosis at time of Disposition: DKA (diabetic ketoacidosis) Qualifiers: Diabetes mellitus type: due to underlying condition Diabetes mellitus complication detail: with coma Qualified Code(s): E08.11 - Diabetes mellitus due to underlying condition with ketoacidosis with coma - Discharge Dispostion Condition at time of disposition: Critical
[2017-08-13] MEDS ORDERED: SODIUM CHLORIDE 1,000 ML IV STA ×3 (08:24→10:30)
[2017-08-13 08:35] LABS: URINE APPEARANCE SLCLOUDY; URINE BILIRUBIN NEGATIVE (NEGATIVE); URINE BLOOD 1+ (NEGATIVE); URINE COLOR LTYELLOW; URINE GLUCOSE (UA) 3+ (NEGATIVE); URINE KETONE 2+ (NEGATIVE); URINE LEUK ESTERASE NEGATIVE (NEGATIVE); URINE NITRITE NEGATIVE (NEGATIVE); URINE PROTEIN NEGATIVE (NEGATIVE); URINE UROBILINOGEN NEGATIVE mg/dL (0.2-1.0)
[2017-08-13 08:39] LABS: GRANULAR CASTS 26 /lpf; URINE BACTERIA RARE /hpf (NONE SEEN); URINE MUCUS RARE
--- NOTE | 2017-08-13 08:45 | EKG ---
Test Reason : Blood Pressure : / mmHG Vent. Rate : 102 BPM Atrial Rate : 102 BPM P-R Int : 120 ms QRS Dur : 078 ms QT Int : 370 ms P-R-T Axes : 064 -68 073 degrees QTc Int : 482 ms SINUS TACHYCARDIA POSSIBLE LEFT ATRIAL ENLARGEMENT LEFT AXIS DEVIATION ABNORMAL ECG WHEN COMPARED WITH ECG OF 14-NOV-2016 10:34, VENT. RATE HAS INCREASED BY 38 BPM NON-SPECIFIC CHANGE IN ST SEGMENT IN INFERIOR LEADS T WAVE INVERSION NO LONGER EVIDENT IN INFERIOR LEADS T WAVE INVERSION NO LONGER EVIDENT IN ANTEROLATERAL LEADS CLINICAL CORRELATION IS RECOMMENDED Confirmed by ABDOUL CLAIRE, DILAN ([id number]) on 08/13/2017 8:45:18 AM Referred By: Confirmed By:DILAN SCHREIBER MD
[2017-08-13 08:46] LABS: ALBUMIN 4.2 g/dl (3.4-5.0); ANION GAP 29 (8-16); BILIRUBIN,TOTAL 0.9 mg/dL (0.2-1.0); BLOOD UREA NITROGEN 30 mg/dL (7-18); CHLORIDE 92 mmol/L (98-107); CO2 10 mmol/L (21-32); MAGNESIUM 2.6 mg/dL (1.8-2.4); POTASSIUM 5.3 mmol/L (3.5-5.1); SGOT/AST 22 U/L (15-37); SGPT/ALT 20 U/L (12-78); SODIUM 131 mmol/L (136-145); TOT PROT 8.6 g/dl (6.4-8.2)
[2017-08-13 08:47] LABS: ALK PHOS 104 U/L (45-117)
[2017-08-13 08:49] LABS: ACETAMINOPHEN 2.793 ug/ml (10.0-30.0); SALICYLATE 4.384 mg/dl (0.0-30.0)
[2017-08-13 08:50] LABS: ALCOHOL < 5.0 mg/dl (0-5)
[2017-08-13 08:56] LABS: GLUCOSE,RANDOM 715 mg/dL (74-106)
[2017-08-13] MEDS ORDERED: INSULIN REGULAR HUMAN 100 UNITS/ML *VIAL IVPUSH ONE (09:10)
[2017-08-13 09:11] LABS: COCAINE, UR NEGATIVE ng/ml (CUTOFF=300); PHENCYCLIDINE,URINE NEGATIVE ng/ml (CUTOFF=25); URINE AMPHETAMINES NEGATIVE ng/ml (CUTOFF=500); URINE BARBITURATES NEGATIVE ng/ml (CUTOFF=200); URINE BENZODIAZEPINES NEGATIVE ng/ml (CUTOFF=200)
[2017-08-13 09:12] LABS: METHADONE, UR POSITIVE ng/ml (CUTOFF=300); OPIATES, URI POSITIVE ng/ml (CUTOFF=300)
[2017-08-13] MEDS ORDERED: INSULIN REGULAR HUMAN 100 UNITS/ML *VIAL ONE (09:14)
[2017-08-13] MEDS ORDERED: INSULIN REGULAR 100 UNITS in SODIUM CHLORIDE 99 ML IVPB SCH (09:15)
[2017-08-13 12:30] LABS: ANION GAP 22 (8-16); BLOOD UREA NITROGEN 29 mg/dL (7-18); CALCIUM 7.9 mg/dL (8.5-10.1); CHLORIDE 109 mmol/L (98-107); CO2 10 mmol/L (21-32); CREATININE 1.8 mg/dL (0.7-1.3); POTASSIUM 3.9 mmol/L (3.5-5.1); SODIUM 141 mmol/L (136-145)
[2017-08-13 12:53] LABS: GLUCOSE,RANDOM 484 mg/dL (74-106)
[2017-08-13] MEDS ORDERED: INSULIN REGULAR 100 UNITS in SODIUM CHLORIDE 99 ML IVPB ONE (13:54)
[2017-08-13] MEDS: INSULIN REGULAR 100 UNITS in SODIUM CHLORIDE 99 ML IVPB SCH (16:30)
--- NOTE | 2017-08-13 17:04 | CONSULT ---
Consult Consult Specialty:: Endocrinology Referred by:: Dr Macdonald Reason for Consultation:: DKA - History of Present Illness History of Present Illness: This patient is a 66 year old male with a history of HIV, HTN, DM on Insulin, Hep C who presented to ED for evaluation of abdominal pain. The patient reported onset of crampy abdominal pain earlier this morning after drinking beer yesterday evening. The patient's fingerstick in triage was above the detectible range. The patient was initially alert and oriented x3 and then had a witnessed seizure in the ED. The patient's family reported that he has had seizures in the past with DKA and is not currently on any seizure medication. The patient's seizure lasted for approximately 3min before successful treatment with ativan. Pt currently unable to give history. Information taken from chart. Pt has had previous admissions for DKA and has brittle diabetes. - History Source History Provided By: Medical Record - Past Medical History Cardio/Vascular: Yes: HTN, Hyperlipdemia Hepatobiliary: Yes: Hepatitis C Infectious Disease: Yes: HIV Endocrine: Yes: Diabetes Mellitus - Alcohol/Substance Use Hx Alcohol Use: No - Smoking History Smoking history: Unknown if ever smoked Have you smoked in the past 12 months: No Aproximately how many cigarettes per day: 1 - Social History Usual Living Arrangement: With Spouse ADL: Independent History of Recent Travel: No Home Medications - Allergies Allergies/Adverse Reactions: Allergies Allergy/AdvReac Type Severity Reaction Status Date / Time No Known Drug Allergies Allergy Verified 08/13/17 06:55 pollen and dust Allergy Mild Itching Uncoded 08/13/17 06:55 weeds Allergy Mild Uncoded 08/13/17 06:55 - Home Medications Home Medications: Ambulatory Orders ASA - 81 mg PO DAILY 11/08/16 Hctz - 12.5 mg PO DAILY 11/08/16 Metformin Xr 100 mg PO 11/08/16 Novolog Flexpen SQ ACHS 11/08/16 Ranexa 500 mg PO DAILY 11/08/16 Methadone [Dolophine -] 60 mg PO DAILY 08/13/17 Family Disease History - Family Disease History Family Disease History: Diabetes: Mother (dec'd age 84 from dm), Heart Disease: Father (dec'd age 50s hx mi), Mother, Brother (8 brothers, 1 dec'd age 60s from ca), Other: Grandparent (all dec'd natural causes), Father, Brother, Sister (3 all a&w), Son (has 4 a&w), Daughter (2 a&w) Review of Systems Unable to obtain ROS, reason: Pt unable to give history Physical Exam Vital Signs: Vital Signs Temperature 100.5 F H 08/13/17 15:34 Pulse Rate 94 H 08/13/17 15:34 Respiratory Rate 16 08/13/17 15:34 Blood Pressure 159/82 08/13/17 15:34 O2 Sat by Pulse Oximetry (%) 100 08/13/17 15:35 Eyes: Yes: Conjunctiva Clear HENT: Yes: Atraumatic, Normocephalic Neck: Yes: Supple, Trachea Midline Cardiovascular: Yes: Regular Rate and Rhythm Respiratory: Yes: Regular, CTA Bilaterally Gastrointestinal: Yes: Normal Bowel Sounds, Soft Breast(s): Yes: WNL Musculoskeletal: Yes: WNL Extremities: Yes: WNL Edema: No Neurological: Yes: Other (unable to assess) Labs: CBC, BMP 08/13/17 07:15 08/13/17 11:55 Assessment/Plan AP: DKA Brittle DM ADEEL: Normal Creatinine last visit BGM Q 1hr IV hydration Electrolyte replacement IV insulin as per order Change IVF once blood sugar drops to less than 250 CMP stat, if potassium drops further or if creatinine normalizes add KCl to IVF Repeat CMP every 4 hrs until acidosis is resolved CMP, mag and phos in a.m. Will f/u
[2017-08-13] MEDS ORDERED: SODIUM CHLORIDE 1,000 ML IV SCH (17:15)
[2017-08-13 19:24] LABS: ALBUMIN 3.4 g/dl (3.4-5.0); ALK PHOS 76 U/L (45-117); ANION GAP 8 (8-16); BILIRUBIN,TOTAL 0.5 mg/dL (0.2-1.0); BLOOD UREA NITROGEN 25 mg/dL (7-18); CHLORIDE 114 mmol/L (98-107); CO2 22 mmol/L (21-32); CREATININE 1.5 mg/dL (0.7-1.3); GLUCOSE,RANDOM 190 mg/dL (74-106); POTASSIUM 3.7 mmol/L (3.5-5.1); SGOT/AST 18 U/L (15-37); SGPT/ALT 18 U/L (12-78); SODIUM 144 mmol/L (136-145); TOT PROT 6.9 g/dl (6.4-8.2)
--- NOTE | 2017-08-13 21:03 | PN ---
Progress Note, Physician - Current Medication List Current Medications: Active Medications Sodium Chloride (Normal Saline -) 1,000 mls @ 50 mls/hr IV ASDIR LAMAR Stop: 08/14/17 17:08 Last Admin: 08/13/17 17:50 Dose: 50 mls/hr Insulin Human Regular 100 (units/ Sodium Chloride) 100 mls @ 6.45 mls/hr IVPB TITR LAMAR; 0.1 UNITS/KG/HR PRN Reason: Protocol Last Titration: 08/13/17 19:04 Dose: 0.04 units/kg/hr, 3 mls/hr - Objective Vital Signs: Vital Signs Temperature 100.6 F H 08/13/17 18:30 Pulse Rate 95 H 08/13/17 18:30 Respiratory Rate 14 08/13/17 18:30 Blood Pressure 160/89 08/13/17 18:30 O2 Sat by Pulse Oximetry (%) 100 08/13/17 15:35 Labs: CBC, BMP 08/13/17 07:15 08/13/17 18:40
--- NOTE | 2017-08-13 21:05 | HP ---
Admitting History and Physical - Admission History of Present Illness: Pt is a 66 y/o male who is sedated(due to lorazepam being given for seizure) and unable to give any history. Pt has a PMH significant for HIV, HTN, HLD, DM , Hep C and polysubstance abuse(on methadone). Pt initially presented to the ER for abdominal pain. The patient reported onset of crampy abdominal pain earlier this morning after drinking beer yesterday evening. In the ER pt found to have glucose>700 and (+) for acetone and started on insulin drip. The patient was initially alert and oriented x3 and then had a witnessed seizure in the ED. The patient's family reported that he has had seizures in the past with DKA and is not currently on any seizure medication. The patient's seizure lasted for approximately 3min before successful treatment with ativan. - Past Medical History Cardiovascular: Yes: HTN, Hyperlipdemia Hepatobiliary: Yes: Hepatitis C Infectious Disease: Yes: HIV Psych: Yes: Addictions Endocrine: Yes: Diabetes Mellitus - Smoking History Smoking history: Unknown if ever smoked Have you smoked in the past 12 months: No Aproximately how many cigarettes per day: 1 - Alcohol/Substance Use Hx Alcohol Use: No - Social History ADL: Independent History of Recent Travel: No Home Medications - Allergies Allergies/Adverse Reactions: Allergies Allergy/AdvReac Type Severity Reaction Status Date / Time No Known Drug Allergies Allergy Verified 08/13/17 06:55 pollen and dust Allergy Mild Itching Uncoded 08/13/17 06:55 weeds Allergy Mild Uncoded 08/13/17 06:55 - Home Medications Home Medications: Ambulatory Orders ASA - 81 mg PO DAILY 11/08/16 Hctz - 12.5 mg PO DAILY 11/08/16 Metformin Xr 100 mg PO 11/08/16 Novolog Flexpen SQ ACHS 11/08/16 Ranexa 500 mg PO DAILY 11/08/16 Methadone [Dolophine -] 60 mg PO DAILY 08/13/17 Family Disease History - Family Disease History Family History: Unable to Obtain (Lethargy) Family Disease History: Diabetes: Mother (dec'd age 84 from dm), Heart Disease: Father (dec'd age 50s hx mi), Mother, Brother (8 brothers, 1 dec'd age 60s from ca), Other: Grandparent (all dec'd natural causes), Father, Brother, Sister (3 all a&w), Son (has 4 a&w), Daughter (2 a&w) Review of Systems Unable to obtain ROS, reason: Lethargy Physical Examination Vital Signs: Vital Signs Temperature 100.6 F H 08/13/17 18:30 Pulse Rate 95 H 08/13/17 18:30 Respiratory Rate 14 08/13/17 18:30 Blood Pressure 160/89 08/13/17 18:30 O2 Sat by Pulse Oximetry (%) 100 08/13/17 15:35 Constitutional: Yes: No Distress HENT: Yes: WNL Neck: Yes: WNL, Supple Cardiovascular: Yes: WNL, Regular Rate and Rhythm Respiratory: Yes: WNL, Regular, CTA Bilaterally Gastrointestinal: Yes: WNL, Normal Bowel Sounds, Soft Musculoskeletal: Yes: WNL Extremities: Yes: WNL Edema: No Neurological: Yes: Other (Lethargic but arousable to pain Nonfocal) Labs: CBC, BMP 08/13/17 07:15 08/13/17 18:40 Problem List - Problems (1) DKA (diabetic ketoacidosis) Assessment/Plan: Pt admtted to ICU on insulin drip Aggressive IV hydration Serial labs Endo consult Fingerstick w/ coverage Code(s): E13.10 - OTH DIABETES MELLITUS WITH KETOACIDOSIS WITHOUT COMA Qualifiers: Diabetes mellitus type: due to underlying condition Diabetes mellitus complication detail: with coma Qualified Code(s): E08.11 - Diabetes mellitus due to underlying condition with ketoacidosis with coma (2) HTN (hypertension) Assessment/Plan: Cont asa/hctz BP stable Code(s): I10 - ESSENTIAL (PRIMARY) HYPERTENSION (3) Substance abuse Assessment/Plan: Pt started on lorazepam prn for etoh w/drawal Cont thiamine/folic acid Cont methadone Rehab consult Code(s): F19.10 - OTHER PSYCHOACTIVE SUBSTANCE ABUSE, UNCOMPLICATED (4) HIV (human immunodeficiency virus infection) Code(s): Z21 - ASYMPTOMATIC HUMAN IMMUNODEFICIENCY VIRUS INFECTION STATUS
[2017-08-13] MEDS ORDERED: LACTATED RINGERS SOLUTION 1,000 ML/1,000 ML INFUS.BAG IV STA (21:24)
[2017-08-13] MEDS ORDERED: D5-NS + 20 MEQ KCL - 20 MEQ/1,000 ML INFUS.BAG IV SCH (21:30)
--- NOTE | 2017-08-13 21:44 | CONSULT ---
Consult Consult Specialty:: PULM/CCM Referred by:: Dr. Jessica Hernandez Reason for Consultation:: DKA - History of Present Illness Chief Complaint: ABD Pain History of Present Illness: Mr. Ramirez is a 66 y/o man w/ HIV, HTN, IDDM, & Hep C, on the methadone program who presents to the ED today c/o abd pain in the setting of Et-OH. In ED pt remark for a Glucose of 750mg/dl, an AGAP of 29, 2+ Urine Ketones, & a VBG pH of 6.99 c/w DKA. In the ED, the pt was initially alert and oriented x3 and then had a witnessed sz requiring Ativan. The pt was started on IVFs & an insulin gtt & transferred to the ICU for metabolic disarray. Of Note, pt' s family reports that the pt has szs when in DKA. - History Source History Provided By: Medical Record Limitations to Obtaining History: Clinical Condition - Past Medical History [employer]TE[employer] MAN: Yes: Other (PI) Cardio/Vascular: Yes: HTN, Hyperlipdemia Hepatobiliary: Yes: Hepatitis C Infectious Disease: Yes: HIV Endocrine: Yes: Diabetes Mellitus - Alcohol/Substance Use Hx Alcohol Use: No - Smoking History Smoking history: Unknown if ever smoked Have you smoked in the past 12 months: No Aproximately how many cigarettes per day: 1 - Social History Usual Living Arrangement: With Spouse ADL: Independent History of Recent Travel: No Home Medications - Allergies Allergies/Adverse Reactions: Allergies Allergy/AdvReac Type Severity Reaction Status Date / Time No Known Drug Allergies Allergy Verified 08/13/17 06:55 pollen and dust Allergy Mild Itching Uncoded 08/13/17 06:55 weeds Allergy Mild Uncoded 08/13/17 06:55 - Home Medications Home Medications: Ambulatory Orders ASA - 81 mg PO DAILY 11/08/16 Hctz - 12.5 mg PO DAILY 11/08/16 Metformin Xr 100 mg PO 11/08/16 Novolog Flexpen SQ ACHS 11/08/16 Ranexa 500 mg PO DAILY 11/08/16 Methadone [Dolophine -] 60 mg PO DAILY 08/13/17 Family Disease History - Family Disease History Family Disease History: Diabetes: Mother (dec'd age 84 from dm), Heart Disease: Father (jul'd age 50s hx mi), Mother, Brother (8 brothers, 1 dec age 60s from ca), Other: Grandparent (all natural causes), Father, Brother, Sister (3 all a&w), Son (has 4 a&w), Daughter (2 a&w) Review of Systems Unable to obtain ROS, reason: AMS (m/l PI) Physical Exam Vital Signs: Vital Signs Temperature 100.6 F H 08/13/17 18:30 Pulse Rate 95 H 08/13/17 18:30 Respiratory Rate 14 08/13/17 18:30 Blood Pressure 160/89 08/13/17 18:30 O2 Sat by Pulse Oximetry (%) 100 08/13/17 15:35 Intake & Output 08/10/17 08/11/17 08/12/17 08/13/17 23:59 23:59 23:59 23:59 Intake Total 5118.5 Balance 5118.5 Weight 64.546 kg Constitutional: Yes: Calm, Cachectic, Poor Hygeine, Thin Eyes: Yes: WNL, Conjunctiva Clear, EOM Intact, Sclera Icterus HENT: Yes: WNL, Atraumatic, Normocephalic Neck: Yes: WNL, Supple, Trachea Midline Cardiovascular: Yes: WNL, Regular Rate and Rhythm Respiratory: Yes: WNL, Regular, CTA Bilaterally Gastrointestinal: Yes: WNL, Normal Bowel Sounds ...Rectal Exam: Yes: Deferred Renal/: Yes: WNL Breast(s): Yes: WNL Musculoskeletal: Yes: WNL Extremities: Yes: WNL Edema: No Peripheral Pulses WNL: Yes Integumentary: Yes: WNL Neurological: Yes: WNL ...Motor Strength: WNL Psychiatric: Yes: WNL Labs: CBC, BMP 08/13/17 07:15 08/13/17 18:40 Imaging - Results Chest X-ray: Image Reviewed (CXR 08/13: Clear (My Read).) Cat Scan: Report Reviewed (NCHCT 08/13: No intracranial hemorrhage is seen. There is no gross mass lesion. Mild periventricular microvascular ischemic gliosis. Involutional changes with mild ventricular dilation. There is almost complete fluid opacification of the right maxillary sinus which could be on the basis of acute sinusitis (versus recent sinus lavage). A small amount of fluid also seen within the left maxillary sinus. CTAP 1/1: 0.2 cm nonobstructing left renal calculus. Diffuse hepatic steatosis. Diffuse colonic fecal retention which is probably moderate.) EKG: Image Reviewed (12 LEAD EKG 08/13: S-Tach @ 100, L axis deviation, L atrial enlargement, flipped T's in V1, T-wave flattening in V2, QTc = 482ms, no acute process (My read).) Problem List - Problems (1) DKA (diabetic ketoacidosis) Code(s): E13.10 - OTH DIABETES MELLITUS WITH KETOACIDOSIS WITHOUT COMA Qualifiers: Diabetes mellitus type: due to underlying condition Diabetes mellitus complication detail: with coma Qualified Code(s): E08.11 - Diabetes mellitus due to underlying condition with ketoacidosis with coma (2) Polyneuropathy Code(s): G62.9 - POLYNEUROPATHY, UNSPECIFIED (3) HIV (human immunodeficiency virus infection) Code(s): Z21 - ASYMPTOMATIC HUMAN IMMUNODEFICIENCY VIRUS INFECTION STATUS (4) HTN (hypertension) Code(s): I10 - ESSENTIAL (PRIMARY) HYPERTENSION (5) Hepatitis C carrier Code(s): Z22.52 - (6) Insulin dependent diabetes mellitus Code(s): E11.9 - TYPE 2 DIABETES MELLITUS WITHOUT COMPLICATIONS; Z79.4 - MACHINE TESTER (CURRENT) USE OF INSULIN Assessment/Plan ASSESS: This is a 66 y/o man w/ HIV, HTN, IDDM, & Hep C, on the methadone program who presents now w/ DKA in the setting of Et-OH c/c/b Szs. PLAN: -Sz precautions -FiO2 for an SpO2 > 92% -Nebs -IS -FS -DKA protocol Insulin gtt -Add in D5 a/p protocol -Aggressive IVFs -BMP q4Hrs -Strict I's & O's -UOP -Trend BUN/Cr -Replete e-lytes prn -Cont Methadone -Once pt resumes POs then resume home DM regimen -SQH -SCDs -No indictaion for a PPI DGL, ACNP-BC [facility] ICU PULM/CCM [id number]
[2017-08-14] MEDS ORDERED: LORazepam 2 MG/ML SDV VIAL IVPUSH ONE (00:10)
[2017-08-14] MEDS ORDERED: LORazepam 2 MG/ML SDV VIAL IVPUSH PRN (00:11)
[2017-08-14] MEDS ORDERED: LORazepam 2 MG/ML SDV VIAL ONE (00:12)
[2017-08-14] MEDS ORDERED: METHADONE HCL 10 MG TABLET PO SCH (06:00)
[2017-08-14 06:18] LABS: BASO % 0.5 % (0-2.0); HEMATOCRIT 32.2 % (35.4-49); HEMOGLOBIN 10.6 GM/dL (11.7-16.9); MCH 29.5 pg (25.7-33.7); MCHC 32.8 g/dl (32.0-35.9); MEAN CELL VOLUME 89.9 fl (80-96); MEAN PLT VOLUME 9.7 fl (7.5-11.1); MONO % 5.4 % (3.8-10.2); NEUT % 85.1 % (42.8-82.8); PLATELET COUNT 142 K/MM3 (134-434); RBC 3.59 M/mm3 (4.00-5.60); RDW 14.8 % (11.9-15.9)
[2017-08-14] MEDS ORDERED: LACTATED RINGERS SOLUTION 1,000 ML/1,000 ML INFUS.BAG IV STA (06:19)
[2017-08-14 06:47] LABS: CHLORIDE 111 mmol/L (98-107); POTASSIUM 3.8 mmol/L (3.5-5.1); SODIUM 143 mmol/L (136-145)
[2017-08-14 06:54] LABS: ALBUMIN 3.3 g/dl (3.4-5.0); ALK PHOS 74 U/L (45-117); ANION GAP 15 (8-16); BILIRUBIN,TOTAL 0.9 mg/dL (0.2-1.0); BLOOD UREA NITROGEN 17 mg/dL (7-18); CALCIUM 8.4 mg/dL (8.5-10.1); CO2 17 mmol/L (21-32); GLUCOSE,RANDOM 205 mg/dL (74-106); SGOT/AST 46 U/L (15-37); SGPT/ALT 23 U/L (12-78); TOT PROT 6.8 g/dl (6.4-8.2)
--- NOTE | 2017-08-14 07:20 | PN ---
Physical Exam: SUBJECTIVE: Still on Insulin GTT and did well overnight but slightly agitated until he received his methadone this morning and now somnolent. No new evidence of seizure activity. OBJECTIVE: Vital Signs Period Temp Pulse Resp BP Sys/Foley Pulse Ox Last 24 Hr 97.9 F-100.6 F 77-117 14-22 107-194/59-107 97-100 GENERAL: Somnolent but slightly arrousable. In no acute distress HEAD: Normal with no signs of trauma. EYES: PERRL, sclera anicteric, conjunctiva clear. No ptosis. ENT: Ears normal, nares patent, oropharynx clear without exudates, dry mucous membranes. NECK: Trachea midline, full range of motion, supple. LUNGS: Breath sounds equal, clear to auscultation bilaterally, no wheezes, no crackles, no accessory muscle use. HEART: Regular rate and rhythm, S1, S2 without murmur, rub or gallop. ABDOMEN: Soft, nontender, nondistended, normoactive bowel sounds, no guarding, no rebound, no hepatosplenomegaly, no masses. EXTREMITIES: Turned over to right side while sleeping bed but no obvious deformity. 2+ pulses, warm, well-perfused, no edema. NEUROLOGICAL: Sleeping but arrousable to touch PSYCH: Sleeping SKIN: Warm, dry, normal turgor, no rashes or lesions noted Laboratory Results - last 24 hr 08/13/17 08/13/17 08/13/17 07:15 07:15 07:15 WBC 14.6 H D RBC 4.25 D Hgb 12.3 D Hct 40.5 D MCV 95.3 MCH 29.0 MCHC 30.4 L RDW 15.6 Plt Count 185 MPV 10.2 D Neutrophils % 81.9 D Lymphocytes % 12.0 D Monocytes % 5.7 Eosinophils % 0.0 D Basophils % 0.4 VBG pH 6.99 L* POC VBG pCO2 35.3 L POC VBG pO2 66.1 H Mixed VBG HCO3 8.1 L* Sodium Potassium Chloride Carbon Dioxide Anion Gap BUN Creatinine Creat Clearance w eGFR POC Glucometer Random Glucose Lactic Acid 8.3 H* Calcium Phosphorus Magnesium Total Bilirubin AST ALT Alkaline Phosphatase Creatine Kinase Troponin I Total Protein Albumin Urine Color Urine Appearance Urine pH Ur Specific Felt Urine Protein Urine Glucose (UA) Urine Ketones Urine Blood Urine Nitrite Urine Bilirubin Urine Urobilinogen Ur Leukocyte Esterase Urine WBC (Auto) Urine RBC (Auto) Urine Bacteria Granular Casts Urine Mucus Salicylates Opiates Screen Methadone Screen Acetaminophen Barbiturate Screen Phencyclidine Screen Ur Amphetamines Screen MDMA (Ecstasy) Screen Benzodiazepines Screen Cocaine Screen U Marijuana (THC) Screen Alcohol, Quantitative Acetone, Qual 08/13/17 08/13/17 08/13/17 07:15 07:40 07:40 WBC RBC Hgb Hct MCV MCH MCHC RDW Plt Count MPV Neutrophils % Lymphocytes % Monocytes % Eosinophils % Basophils % VBG pH POC VBG pCO2 POC VBG pO2 Mixed VBG HCO3 Sodium 131 L Potassium 5.3 H D Chloride 92 L D Carbon Dioxide 10 L D Anion Gap 29 H BUN 30 H D Creatinine 2.0 H D Creat Clearance w eGFR 33.49 POC Glucometer Random Glucose 715 H* D Lactic Acid Calcium 10.0 D Phosphorus 8.0 H D Magnesium 2.6 H D Total Bilirubin 0.9 D AST 22 D ALT 20 Alkaline Phosphatase 104 D Creatine Kinase 91 Troponin I < 0.02 D < 0.02 Total Protein 8.6 H D Albumin 4.2 D Urine Color Ltyellow Urine Appearance Slcloudy Urine pH 5.0 Ur Specific Felt 1.021 Urine Protein Negative Urine Glucose (UA) 3+ H Urine Ketones 2+ H Urine Blood 1+ H Urine Nitrite Negative Urine Bilirubin Negative Urine Urobilinogen Negative Ur Leukocyte Esterase Negative Urine WBC (Auto) 2 Urine RBC (Auto) 3 Urine Bacteria Rare Granular Casts 26 Urine Mucus Rare Salicylates Opiates Screen Methadone Screen Acetaminophen Barbiturate Screen Phencyclidine Screen Ur Amphetamines Screen MDMA (Ecstasy) Screen Benzodiazepines Screen Cocaine Screen U Marijuana (THC) Screen Alcohol, Quantitative Acetone, Qual 08/13/17 08/13/17 08/13/17 08:17 08:17 09:00 WBC RBC Hgb Hct MCV MCH MCHC RDW Plt Count MPV Neutrophils % Lymphocytes % Monocytes % Eosinophils % Basophils % VBG pH POC VBG pCO2 POC VBG pO2 Mixed VBG HCO3 Sodium Potassium Chloride Carbon Dioxide Anion Gap BUN Creatinine Creat Clearance w eGFR POC Glucometer Random Glucose Lactic Acid Calcium Phosphorus Magnesium Total Bilirubin AST ALT Alkaline Phosphatase Creatine Kinase Troponin I Total Protein Albumin Urine Color Urine Appearance Urine pH Ur Specific Felt Urine Protein Urine Glucose (UA) Urine Ketones Urine Blood Urine Nitrite Urine Bilirubin Urine Urobilinogen Ur Leukocyte Esterase Urine WBC (Auto) Urine RBC (Auto) Urine Bacteria Granular Casts Urine Mucus Salicylates 4.384 Opiates Screen Positive Methadone Screen Positive Acetaminophen 2.793 L Barbiturate Screen Negative Phencyclidine Screen Negative Ur Amphetamines Screen Negative MDMA (Ecstasy) Screen Negative Benzodiazepines Screen Negative Cocaine Screen Negative U Marijuana (THC) Screen Negative Alcohol, Quantitative < 5.0 Acetone, Qual Positive moderate 2+ 08/13/17 08/13/17 08/13/17 09:40 11:55 11:55 WBC RBC Hgb Hct MCV MCH MCHC RDW Plt Count MPV Neutrophils % Lymphocytes % Monocytes % Eosinophils % Basophils % VBG pH POC VBG pCO2 POC VBG pO2 Mixed VBG HCO3 Sodium 141 Potassium 3.9 D Chloride 109 H D Carbon Dioxide 10 L Anion Gap 22 H BUN 29 H Creatinine 1.8 H Creat Clearance w eGFR POC Glucometer Random Glucose 484 H* D Lactic Acid 5.2 H* 2.1 H* Calcium 7.9 L D Phosphorus Magnesium Total Bilirubin AST ALT Alkaline Phosphatase Creatine Kinase Troponin I Total Protein Albumin Urine Color Urine Appearance Urine pH Ur Specific Felt Urine Protein Urine Glucose (UA) Urine Ketones Urine Blood Urine Nitrite Urine Bilirubin Urine Urobilinogen Ur Leukocyte Esterase Urine WBC (Auto) Urine RBC (Auto) Urine Bacteria Granular Casts Urine Mucus Salicylates Opiates Screen Methadone Screen Acetaminophen Barbiturate Screen Phencyclidine Screen Ur Amphetamines Screen MDMA (Ecstasy) Screen Benzodiazepines Screen Cocaine Screen U Marijuana (THC) Screen Alcohol, Quantitative Acetone, Qual 08/13/17 08/13/17 08/13/17 13:43 14:53 16:23 WBC RBC Hgb Hct MCV MCH MCHC RDW Plt Count MPV Neutrophils % Lymphocytes % Monocytes % Eosinophils % Basophils % VBG pH POC VBG pCO2 POC VBG pO2 Mixed VBG HCO3 Sodium Potassium Chloride Carbon Dioxide Anion Gap BUN Creatinine Creat Clearance w eGFR POC Glucometer > 400 290.98443 [phone] Random Glucose Lactic Acid Calcium Phosphorus Magnesium Total Bilirubin AST ALT Alkaline Phosphatase Creatine Kinase Troponin I Total Protein Albumin Urine Color Urine Appearance Urine pH Ur Specific Felt Urine Protein Urine Glucose (UA) Urine Ketones Urine Blood Urine Nitrite Urine Bilirubin Urine Urobilinogen Ur Leukocyte Esterase Urine WBC (Auto) Urine RBC (Auto) Urine Bacteria Granular Casts Urine Mucus Salicylates Opiates Screen Methadone Screen Acetaminophen Barbiturate Screen Phencyclidine Screen Ur Amphetamines Screen MDMA (Ecstasy) Screen Benzodiazepines Screen Cocaine Screen U Marijuana (THC) Screen Alcohol, Quantitative Acetone, Qual 08/13/17 08/13/17 08/13/17 18:02 18:40 18:58 WBC RBC Hgb Hct MCV MCH MCHC RDW Plt Count MPV Neutrophils % Lymphocytes % Monocytes % Eosinophils % Basophils % VBG pH POC VBG pCO2 POC VBG pO2 Mixed VBG HCO3 Sodium 144 Potassium 3.7 Chloride 114 H Carbon Dioxide 22 D Anion Gap 8 BUN 25 H Creatinine 1.5 H Creat Clearance w eGFR 46.68 POC Glucometer [phone] Random Glucose 190 H D Lactic Acid Calcium 8.0 L Phosphorus Magnesium Total Bilirubin 0.5 D AST 18 ALT 18 Alkaline Phosphatase 76 D Creatine Kinase Troponin I Total Protein 6.9 Albumin 3.4 Urine Color Urine Appearance Urine pH Ur Specific Felt Urine Protein Urine Glucose (UA) Urine Ketones Urine Blood Urine Nitrite Urine Bilirubin Urine Urobilinogen Ur Leukocyte Esterase Urine WBC (Auto) Urine RBC (Auto) Urine Bacteria Granular Casts Urine Mucus Salicylates Opiates Screen Methadone Screen Acetaminophen Barbiturate Screen Phencyclidine Screen Ur Amphetamines Screen MDMA (Ecstasy) Screen Benzodiazepines Screen Cocaine Screen U Marijuana (THC) Screen Alcohol, Quantitative Acetone, Qual 08/13/17 08/13/17 08/13/17 20:31 21:48 23:58 WBC RBC Hgb Hct MCV MCH MCHC RDW Plt Count MPV Neutrophils % Lymphocytes % Monocytes % Eosinophils % Basophils % VBG pH POC VBG pCO2 POC VBG pO2 Mixed VBG HCO3 Sodium Potassium Chloride Carbon Dioxide Anion Gap BUN Creatinine Creat Clearance w eGFR POC Glucometer 163.51351 135.01898 128.62422 Random Glucose Lactic Acid Calcium Phosphorus Magnesium Total Bilirubin AST ALT Alkaline Phosphatase Creatine Kinase Troponin I Total Protein Albumin Urine Color Urine Appearance Urine pH Ur Specific Felt Urine Protein Urine Glucose (UA) Urine Ketones Urine Blood Urine Nitrite Urine Bilirubin Urine Urobilinogen Ur Leukocyte Esterase Urine WBC (Auto) Urine RBC (Auto) Urine Bacteria Granular Casts Urine Mucus Salicylates Opiates Screen Methadone Screen Acetaminophen Barbiturate Screen Phencyclidine Screen Ur Amphetamines Screen MDMA (Ecstasy) Screen Benzodiazepines Screen Cocaine Screen U Marijuana (THC) Screen Alcohol, Quantitative Acetone, Qual 08/14/17 08/14/17 08/14/17 02:03 04:11 05:15 WBC 13.0 H RBC 3.59 L Hgb 10.6 L D Hct 32.2 L D MCV 89.9 MCH 29.5 MCHC 32.8 RDW 14.8 Plt Count 142 D MPV 9.7 Neutrophils % 85.1 H Lymphocytes % 9.0 D Monocytes % 5.4 Eosinophils % 0.0 Basophils % 0.5 VBG pH POC VBG pCO2 POC VBG pO2 Mixed VBG HCO3 Sodium Potassium Chloride Carbon Dioxide Anion Gap BUN Creatinine Creat Clearance w eGFR POC Glucometer 139.74131 153.46923 Random Glucose Lactic Acid Calcium Phosphorus Magnesium Total Bilirubin AST ALT Alkaline Phosphatase Creatine Kinase Troponin I Total Protein Albumin Urine Color Urine Appearance Urine pH Ur Specific Felt Urine Protein Urine Glucose (UA) Urine Ketones Urine Blood Urine Nitrite Urine Bilirubin Urine Urobilinogen Ur Leukocyte Esterase Urine WBC (Auto) Urine RBC (Auto) Urine Bacteria Granular Casts Urine Mucus Salicylates Opiates Screen Methadone Screen Acetaminophen Barbiturate Screen Phencyclidine Screen Ur Amphetamines Screen MDMA (Ecstasy) Screen Benzodiazepines Screen Cocaine Screen U Marijuana (THC) Screen Alcohol, Quantitative Acetone, Qual 08/14/17 08/14/17 08/14/17 05:15 05:15 06:39 WBC RBC Hgb Hct MCV MCH MCHC RDW Plt Count MPV Neutrophils % Lymphocytes % Monocytes % Eosinophils % Basophils % VBG pH POC VBG pCO2 POC VBG pO2 Mixed VBG HCO3 Sodium 143 Potassium 3.8 Chloride 111 H Carbon Dioxide 17 L D Anion Gap 15 BUN 17 D Creatinine 1.0 D Creat Clearance w eGFR > 60 POC Glucometer 200.29322 Random Glucose 205 H Lactic Acid Calcium 8.4 L Phosphorus Magnesium Total Bilirubin 0.9 D AST 46 H D ALT 23 D Alkaline Phosphatase 74 Creatine Kinase Troponin I Total Protein 6.8 Albumin 3.3 L Urine Color Urine Appearance Urine pH Ur Specific Felt Urine Protein Urine Glucose (UA) Urine Ketones Urine Blood Urine Nitrite Urine Bilirubin Urine Urobilinogen Ur Leukocyte Esterase Urine WBC (Auto) Urine RBC (Auto) Urine Bacteria Granular Casts Urine Mucus Salicylates Opiates Screen Methadone Screen Acetaminophen Barbiturate Screen Phencyclidine Screen Ur Amphetamines Screen MDMA (Ecstasy) Screen Benzodiazepines Screen Cocaine Screen U Marijuana (THC) Screen Alcohol, Quantitative Acetone, Qual Positive moderate 2+ Active Medications Generic Name Dose Route Start Last Admin Trade Name Freq PRN Reason Stop Dose Admin Aspirin 81 mg 08/14/17 10:00 Ecotrin - PO DAILY [facility] Folic Acid 1 mg 08/14/17 10:00 Folic Acid - PO DAILY [facility] Heparin Sodium (Porcine) 5,000 unit 08/14/17 10:00 Heparin - SQ BID [facility] Hydrochlorothiazide 12.5 mg 08/14/17 10:00 Hctz - PO DAILY [facility] Insulin Human Regular 100 100 mls @ 6.45 mls/hr 08/13/17 17:30 08/14/17 00:00 units/ Sodium Chloride IVPB 0.01 units/kg/hr TITR LAMAR 1 mls/hr Protocol Titration 0.1 UNITS/KG/HR Dextrose/Sodium Chloride 20 meq in 1,000 mls @ 75 mls/hr 08/13/17 21:30 08/13 20:30 Dextrose 5%-Normal Saline+20 Meq Kcl - IV 75 mls/hr ASDIR LAMAR Administration Lactated Ringer's 1,000 ml in 1,000 mls @ 1,000 mls/hr 08/14/17 06:19 Lactated Ringers Solution IV 08/14/17 07:18 ONCE STA Lorazepam 1 mg 08/14/17 00:11 Ativan Injection - IVPUSH Q6H PRN ANXIETY Methadone HCl 60 mg 08/14/17 06:00 Dolophine - PO DAILY@0600 [facility] Ranolazine 500 mg 08/14/17 10:00 Ranexa - PO DAILY [facility] Thiamine HCl 100 mg 08/14/17 10:00 Vitamin B1 - PO DAILY [facility] ASSESSMENT/PLAN: PMH significant for HIV, HTN, HLD, DM, Hep C and polysubstance abuse (on methadone) presenting with DKA and seizure activity with closing anion gap and decreasing BG. Neuro: #AMS: Unclear if this is his baseline as patietn fluctuates from agitation to somnolence without ever being AOx3. He could still be post-ictal from his seizure or methadone intoxicated. - Head CT negative - Will speak to family regarding MS # Seizure - Neuro checks - Can hold PPX as seizure resolved with ativan inthe setting of DKA which is now resolving # Substance abuse: - Watch for signs of withdrawal - Continue Methadone 60 daily. - Substance abuse consult CV: #Hypertension: - Continue HCTZ 12.5 daily - Continue ranexa for angina Endo: # DKA: Patient's gap is almost closed, currently 15. Sugars 200 on D5-1/2 NS - Continue insulin GTT at 6/hr until Gap <12 then can use it at SS rate per instructions - Gave one more unit LR for GAP because of Hyperkalemia, and Hyperchloremia - Continue on D5-NS - BMP Q 4 Hrs until GAP <12 FEN: - D5-NS per above - Insulin drip - Will feed once gap closes PPX: -SQH -SCDs -No indictaion for a PPI Dispo: - Patient can go to the floor once GAP closes and no longer requires insulin GTT. Visit type - Emergency Visit Emergency Visit: No - New Patient This patient is new to me today: Yes Date on this admission: 08/14/17 - Critical Care Critical Care patient: Yes Total Critical Care Time (in minutes): 35 Critical Care Statement: The care of this patient involved high complexity decision making to prevent further life threatening deterioration of the patient 's condition and/or to evaluate & treat vital organ system(s) failure or risk of failure. - Discharge Referral Referred to [facility] No
[2017-08-14] MEDS ORDERED: HEMOQUE TEST 1 EACH EACH ONE (08:20)
[2017-08-14] MEDS: INSULIN REGULAR 100 UNITS in SODIUM CHLORIDE 99 ML IVPB SCH ×2 (08:33→12:15)
[2017-08-14] MEDS ORDERED: THIAMINE HCL 100 MG TABLET (FP) PO SCH ×2 (10:00→22:00)
[2017-08-14] MEDS ORDERED: HEPARIN NA (PORCINE) 5,000 UNITS/ML 1ML VIAL SQ SCH (10:00)
[2017-08-14] MEDS ORDERED: FOLIC ACID 1 MG TABLET (FP) PO SCH (10:00)
[2017-08-14] MEDS: RANOLAZINE E.R. 500 MG TABLET (FP) PO SCH (11:03)
[2017-08-14] MEDS: ASPIRIN COATED 81 MG TABLET.EC PO SCH (11:03)
[2017-08-14] MEDS: HEPARIN NA (PORCINE) 5,000 UNITS/ML 1ML VIAL SQ SCH ×2 (11:04→21:33)
[2017-08-14] MEDS: HYDROCHLOROTHIAZIDE 12.5 MG CAPSULE (FP) PO SCH (11:04)
[2017-08-14 11:48] LABS: CHLORIDE 110 mmol/L (98-107); POTASSIUM 5.1 mmol/L (3.5-5.1); SODIUM 141 mmol/L (136-145)
[2017-08-14 11:54] LABS: ANION GAP 15 (8-16); BLOOD UREA NITROGEN 15 mg/dL (7-18); CALCIUM 8.6 mg/dL (8.5-10.1); CO2 16 mmol/L (21-32); CREATININE 1.2 mg/dL (0.7-1.3); GLUCOSE,RANDOM 194 mg/dL (74-106)
[2017-08-14] MEDS ORDERED: LACTATED RINGERS SOLUTION 1000 ML INFUS.BAG IV ONE (12:20)
--- NOTE | 2017-08-14 13:36 | CONSULT ---
Consult Detox [facility] Reason for Current Admission/Consult: opioid use disorder Referred by:: magnus Hernandez MD - History History of Present Illness: 66yo m with h/o opioid use diorder on [facility] 70mg daily ldm 08/12/17 at program verified by nurse has been recieving 60mg daily since admission admitted with seizures thought to have been precipitated by dka/ Pt has multiple medicl comorbidity and continues with jb.ysusbstance use - it appears he is still using heroin from his utox and activelydrinking. He is confused and still unable to provide history although alert and responsive with restraints in bed. - History Source History Provided By: Patient, Medical Record, Caregiver Limitations to Obtaining History: Clinical Condition - Alcohol/Substance Use Hx Alcohol Use: Yes Hx Substance Use: Yes Hx Substance Use Treatment: Yes ([facility]) - Past Medical History [employer]: Yes: Other (PI) Cardio/Vascular: Yes: HTN, Hyperlipdemia Hepatobiliary: Yes: Hepatitis C Infectious Disease: Yes: HIV Psych: Yes: Addictions Endocrine: Yes: Diabetes Mellitus - Significant Medical Findings: 66 yo m with h/o polysubstance use on [facility] 70mg daily admitted ub dka with seizures still confused but in NAD, unable to obtain history from patient, appears seated. even on lowered methadoen dose Assessment Plan - Diagnosis (1) Opioid dependence on agonist therapy Status: Acute (2) DKA (diabetic ketoacidosis) Status: Acute Qualifiers: Diabetes mellitus type: due to underlying condition Diabetes mellitus complication detail: with coma Qualified Code(s): E08.11 - Diabetes mellitus due to underlying condition with ketoacidosis with coma (3) Polyneuropathy Status: Active (4) HIV (human immunodeficiency virus infection) Status: Acute (5) HTN (hypertension) Status: Acute (6) DM Diabetes mellitus type 2 Status: Chronic Comment: on meds, sees primary (7) Hepatitis C carrier Status: Chronic Comment: completed 8 wks of markie, although he had been approved for 12 wks. will check hcv vl today, vale a f/u u/s abd. urge to avoid etoh. we discussed possible re-exposure risk and he denies risk factors. (8) Nicotine dependence Status: Chronic Comment: urge cessation efforts. - Plan Plan: Chart, labs, imaging reveiwed, discussed patient wit medical staff, attempted to obtain history and examined patient. Patient unable to give history - alert but oriente person only. restaained in bed but appears comfortable and slightly sedated. would give split dose methadone 30mg bid starting tomorrow to minimize effect on mental status, fluids, vitamins, supportive care as per primary team. When stailized for discharge should return to [facility] for substance use treatment and PCP for medical care. ativvan prn for any withdrawal sx. Lemuel Hansen MD [phone] - Medication Detox Regimen/Protocol: Not Applicable
--- NOTE | 2017-08-14 13:40 | PN ---
Teaching Attending Note Name of Resident: Melba Epstein ATTENDING PHYSICIAN STATEMENT I saw and evaluated the patient. I reviewed the resident's note and discussed the case with the resident. I agree with the resident's findings and plan as documented. SUBJECTIVE: Pt seen and examined in the ICU. Remains on insulin gtt. Somnolent but arousable. Just received his methadone. OBJECTIVE: Last Vital Signs Temp Pulse Resp BP Pulse Ox 98.7 F 88 22 160/83 98 08/14/17 10:00 08/14/17 10:00 08/14/17 10:00 08/14/17 10:08/14/17 09:32 Intake & Output 08/11/17 08/12/17 08/13/17 08/14/17 23:59 23:59 23:59 23:59 Intake Total 5118.5 1706 Output Total 600 Balance 5118.5 1106 Weight 64.546 kg 67.16 kg Gen: somnolent but arousable Heart: RRR Lung: decreased breath sounds at the bases Abd: soft, nontender Ext: no edema CBC, BMP 08/14/17 05:15 08/14/17 10:40 Active Medications Aspirin (Ecotrin -) 81 mg PO DAILY [facility] Last Admin: 08/14/17 11:03 Dose: 81 mg Folic Acid (Folic Acid -) 1 mg PO DAILY [facility] Last Admin: 08/14/17 11:04 Dose: 1 mg Heparin Sodium (Porcine) (Heparin -) 5,000 unit SQ BID [facility] Last Admin: 08/14/17 11:04 Dose: 5,000 unit Hydrochlorothiazide (Hctz -) 12.5 mg PO DAILY [facility] Last Admin: 08/14/17 11:04 Dose: 12.5 mg Insulin Human Regular 100 (units/ Sodium Chloride) 100 mls @ 6.45 mls/hr IVPB TITR [facility]; 0.1 UNITS/KG/HR PRN Reason: Protocol Last Admin: 08/14/17 12:15 Dose: 0.03 units/kg/hr, 2 mls/hr Dextrose/Sodium Chloride (Dextrose 5%-Normal Saline+20 Meq Kcl -) 20 meq in 1, 000 mls @ 75 mls/hr IV ASDIR [facility] Last Admin: 08/13/17 20:30 Dose: 75 mls/hr Lactated Ringer's (Lactated Ringers Solution) 1,000 ml IV ONCE ONE Stop: 08/14/17 12:21 Lorazepam (Ativan Injection -) 1 mg IVPUSH Q6H PRN PRN Reason: ANXIETY Methadone HCl (Dolophine -) 60 mg PO DAILY@0600 [facility] Ranolazine (Ranexa -) 500 mg PO DAILY [facility] Last Admin: 08/14/17 11:03 Dose: 500 mg Thiamine HCl (Vitamin B1 -) 100 mg PO DAILY [facility] Last Admin: 08/14/17 11:04 Dose: 100 mg ASSESSMENT AND PLAN: Diabetic Ketoacidosis Lactic Acidosis Acute Kidney Injury Alcohol Abuse Seizure HTN DM Hep C HIV - continue insulin gtt, increase rate - IVF - monitor BMP q4h, BGM q1h while on insulin gtt - add D5 to IVF if BGM <250 while on insulin gtt - add KCl to IVF if K <4.5 while on insulin gtt - monitor urine output, creatinine - monitor lytes - consider temporarily decreasing methadone dose - DVT prophylaxis - continue ICU monitoring while on insulin gtt critical care time spent in reviewing chart, evaluating patient and formulating plan 35 min
--- NOTE | 2017-08-14 14:32 | PN ---
Progress Note (short form) - Note Progress Note: Awake, slightly agitated Vital Signs Period Temp Pulse Resp BP Sys/Foley Pulse Ox Last 24 Hr 98 F-100.6 F 77-96 14-22 131-184/74-110 97-100 PE: Awake, agitated Neck: Supple Lungs: CTA CVS: S1S2 Abd: Benign EXt: No edema CMP Sodium 141 mmol/L (136-145) 08/14/17 10:40 Potassium 5.1 mmol/L (3.5-5.1) D 08/14/17 10:40 Chloride 110 mmol/L (98-107) H 08/14/17 10:40 Carbon Dioxide 16 mmol/L (21-32) L 08/14/17 10:40 Anion Gap 15 (8-16) 08/14/17 10:40 BUN 15 mg/dL (7-18) 08/14/17 10:40 Creatinine 1.2 mg/dL (0.7-1.3) 08/14/17 10:40 Creat Clearance w eGFR > 60 (>60) 08/14/17 05:15 POC Glucometer 200.21102 UNITS (80-120) 08/14/17 06:39 Random Glucose 194 mg/dL (74-106) H 08/14/17 10:40 Lactic Acid 2.1 mmol/L (0.4-2.0) H* 08/13/17 11:55 Calcium 8.6 mg/dL (8.5-10.1) 08/14/17 10:40 Phosphorus 8.0 mg/dL (2.5-4.9) H D 08/13/17 07:40 Magnesium 2.6 mg/dL (1.8-2.4) H D 08/13/17 07:40 Total Bilirubin 0.9 mg/dL (0.2-1.0) D 08/14/17 05:15 AST 46 U/L (15-37) H D 08/14/17 05:15 ALT 23 U/L (12-78) D 08/14/17 05:15 Alkaline Phosphatase 74 U/L (45-117) 08/14/17 05:15 Creatine Kinase 91 IU/L (39-308) 08/13/17 07:40 Troponin I < 0.02 ng/ml (0.00-0.05) 08/13/17 07:40 Total Protein 6.8 g/dl (6.4-8.2) 08/14/17 05:15 Albumin 3.3 g/dl (3.4-5.0) L 08/14/17 05:15 Current Medications Generic Name Dose Route Start Last Admin Trade Name Freq PRN Reason Stop Dose Admin Aspirin 81 mg 08/14/17 10:00 08/14/17 11:03 Ecotrin - PO 81 mg DAILY [facility] Administration Folic Acid 1 mg 08/14/17 10:00 08/14/17 11:04 Folic Acid - PO 1 mg DAILY [facility] Administration Heparin Sodium (Porcine) 5,000 unit 08/14/17 10:00 08/14/17 11:04 Heparin - SQ 5,000 unit BID [facility] Administration Hydrochlorothiazide 12.5 mg 08/14/17 10:00 08/14/17 11:04 Hctz - PO 12.5 mg DAILY [facility] Administration Dextrose/Sodium Chloride 20 meq in 1,000 mls @ 75 mls/hr 08/13/17 21:30 08/13 20:30 Dextrose 5%-Normal Saline+20 Meq Kcl - IV 75 mls/hr ASDIR [facility] Administration Insulin Human Regular 100 100 mls @ 387.27 mls/hr 08/13/17 13:54 units/ Sodium Chloride IVPB 08/13/17 14:08 NOW ONE Protocol 6 UNITS/KG/HR Lactated Ringer's 1,000 ml 08/14/17 12:20 Lactated Ringers Solution IV 08/14/17 12:21 ONCE ONE Lorazepam 1 mg 08/14/17 00:11 Ativan Injection - IVPUSH Q6H PRN ANXIETY Methadone HCl 60 mg 08/14/17 06:00 Dolophine - PO DAILY@0600 [facility] Ranolazine 500 mg 08/14/17 10:00 08/14/17 11:03 Ranexa - PO 500 mg DAILY [facility] Administration Thiamine HCl 100 mg 08/14/17 10:00 08/14/17 11:04 Vitamin B1 - PO 100 mg DAILY [facility] Administration AP: DKA Brittle DM ADEEL: Normal Creatinine now BGM Q 1hr IV hydration, Had Ringer's lactate and currently on D5 1/2NS May increase D5 1/2 NS to 125 or change fluid to D10 1/2 NS at 60ml/hr with KCl if necessary to maintain blood sugar >120 and K+ around 4. Electrolyte replacement as necessary Insulin drip at 2 units/hr Repeat CMP every 4 hrs until AGAP/acidosis is resolves CMP, mag and phos in a.m. Further management as per ICU team. Case discussed with housestaff.
[2017-08-14 15:54] LABS: ANION GAP 8 (8-16); BLOOD UREA NITROGEN 12 mg/dL (7-18); CALCIUM 8.6 mg/dL (8.5-10.1); CHLORIDE 110 mmol/L (98-107); CO2 26 mmol/L (21-32); GLUCOSE,RANDOM 92 mg/dL (74-106); POTASSIUM 3.2 mmol/L (3.5-5.1); SODIUM 144 mmol/L (136-145)
[2017-08-14] MEDS ORDERED: DEXTROSE 50%-WATER - 25 GM/50 ML VIAL IVPUSH ONE ×2 (16:15→18:30)
[2017-08-14] MEDS ORDERED: DEXTROSE 50%-WATER 25 GM/50 ML DISP.SYRIN ONE ×2 (16:17→17:20)
[2017-08-14] MEDS ORDERED: POTASSIUM CHLORIDE ORAL LIQUID 20 MEQ/15 ML PO ONE (18:30)
[2017-08-14] MEDS: KCL 10 MEQ IVPB 10 MEQ/100 ML INFUS.BAG IVPB SCH ×3 (18:53→21:33)
[2017-08-14] MEDS ORDERED: chlordiazePOXIDE HCL 25 MG CAPSULE PO PRN (20:22)
--- NOTE | 2017-08-14 20:26 | PN ---
Progress Note (short form) - Note Progress Note: D/W with Dr Murdock. Patient still in altered mental status, per family he is more altered than usual. Considering alcohol level was not zero, patient is most likely in withdrawal. Plan: iv thiamine 250mg Q6H Librium protocol
--- NOTE | 2017-08-14 20:27 | CONSULT ---
Consult - text type - Consultation Consultation Note: NEUROLOGY CONSULTATION is greatly appreciated: Events reviewed, patient examined. Discussed with ICU house staff. This 66 yo RH man with h/o DM, HTN, ASHD, IVDA, HIV+, Hep C on insulin, metformin, HCTZ, and Ranexa is known polysubstance abuse including heroin and alcohol on Methadone 70 mg/ day. Admitted 08/13/17 with abdominal pain and promptly had a witnessed seizure- given ativan. In the ER: Glucose= 715 mg%, WBC= 14.6 and BAL< [address] of head (reviewed): shows moderate, diffuse atrophy and calcified intracranial arteries. Today, patient is becoming increasingly agitated and confused in spite of improving metabolic status. ROLANDO: No bruits. Neck supple NEURO: Awake, hyperalert, agitated Ox "a friends house for New Years." January,. Full wilson. Full EOM's. No facial. Gag OK No drift or tremor. Normal strength. Reduced KJ's. Absent AJ's. Downgoing toes. Withdraws all 4's to pinch. IMP: Non-focal exam sig for Moderate, B/L cerebral dysfunction with features of delirium. Isolated seizure-possible related to ETOH withdrawal. Possible Delirium Tremens (DTs). SUGGEST: Librium detox protocol begin now. Thiamine 250 mg IVPB over 1 hr QID x 3 days- first dose stat. Repeat BMP Ca++, Mg++. Check B12, TSH, T4, RPR, Ammonia level. R/O occult infection. Thank you very much, Omid Murdock MD
[2017-08-14 20:46] LABS: ANION GAP 12 (8-16); BLOOD UREA NITROGEN 10 mg/dL (7-18); CALCIUM 8.7 mg/dL (8.5-10.1); CHLORIDE 105 mmol/L (98-107); CO2 22 mmol/L (21-32); GLUCOSE,RANDOM 166 mg/dL (74-106); SODIUM 139 mmol/L (136-145)
[2017-08-14 20:52] LABS: POTASSIUM 3.7 mmol/L (3.5-5.1)
[2017-08-14] MEDS ORDERED: D5-NS + 20 MEQ KCL - 20 MEQ/1,000 ML INFUS.BAG IV SCH (21:00)
[2017-08-14 21:04] LABS: MAGNESIUM 1.8 mg/dL (1.8-2.4); PHOSPHOROUS 1.8 mg/dL (2.5-4.9)
[2017-08-14] MEDS ORDERED: D5-NS + 40 MEQ KCL - 40 MEQ/1,000 ML INFUS.BAG IV SCH (21:15)
[2017-08-14] MEDS ORDERED: MAGNESIUM SULF 50% (8.12 MEQ/2 ML-1 GM VIAL) IVPB ONE (21:26)
[2017-08-14] MEDS ORDERED: SODIUM PHOSPHATE - 15 MM in DEXTROSE 5%-WATER - 250 ML IVPB ONE (22:45)
[2017-08-14] MEDS ORDERED: INSULIN DETEMIR 100 UNITS/ML MDV SQ ONE (23:15)
--- NOTE | 2017-08-14 23:39 | PN ---
Progress Note, Physician History of Present Illness: Pt agitated - Current Medication List Current Medications: Active Medications Aspirin (Ecotrin -) 81 mg PO DAILY [facility] Last Admin: 08/14/17 11:03 Dose: 81 mg Chlordiazepoxide HCl (Librium -) 50 mg PO [id number] [facility] Stop: 08/15/17 17:01 Chlordiazepoxide HCl (Librium -) 25 mg PO [id number] [facility] Stop: 08/16/17 17:01 Chlordiazepoxide HCl (Librium -) 15 mg PO [id number] [facility] Stop: 08/17/17 17:01 Chlordiazepoxide HCl (Librium -) 25 mg PO Q4H PRN PRN Reason: WITHDRAWAL(CONT SUBST) Stop: 08/17/17 20:21 Heparin Sodium (Porcine) (Heparin -) 5,000 unit SQ BID [facility] Last Admin: 08/14/17 21:33 Dose: 5,000 unit Hydrochlorothiazide (Hctz -) 12.5 mg PO DAILY [facility] Last Admin: 08/14/17 11:04 Dose: 12.5 mg Dextrose/Sodium Chloride (Dextrose 5%-Normal Saline+40 Meq Kcl -) 40 meq in 1, 000 mls @ 75 mls/hr IV ASDIR [facility] Last Admin: 08/14/17 21:53 Dose: 75 mls/hr Insulin Aspart (Novolog Vial Sliding Scale -) 1 vial SQ Q4HPO [facility] PRN Reason: Protocol Lorazepam (Ativan Injection -) 1 mg IVPUSH Q6H PRN PRN Reason: ANXIETY Methadone HCl (Dolophine -) 30 mg PO Q12H [facility] Multivit/Folic Acid/Iron ( Vitamins (Sjr) -) 1 tab PO DAILY [facility] Ranolazine (Ranexa -) 500 mg PO DAILY [facility] Last Admin: 08/14/17 11:03 Dose: 500 mg Thiamine HCl (Vitamin B1 -) 100 mg PO HS [facility] Last Admin: 08/14/17 21:33 Dose: 100 mg Thiamine HCl (Vitamin B1 Injection -) 250 mg IVPB Q6H [facility] - Objective Vital Signs: Vital Signs Temperature 98.7 F 08/14/17 10:00 Pulse Rate 112 H 08/14/17 22:00 Respiratory Rate 20 08/14/17 22:00 Blood Pressure 174/84 08/14/17 22:00 O2 Sat by Pulse Oximetry (%) 98 08/14/17 19:59 Constitutional: Yes: No Distress Neck: Yes: WNL, Supple Cardiovascular: Yes: WNL, Regular Rate and Rhythm Respiratory: Yes: WNL, Regular, CTA Bilaterally Gastrointestinal: Yes: WNL, Normal Bowel Sounds, Soft Edema: No Neurological: Yes: WNL, Alert, Oriented ...Motor Strength: WNL Labs: CBC, BMP 08/14/17 05:15 08/14/17 19:45 Problem List - Problems (1) DKA (diabetic ketoacidosis) Assessment/Plan: Cont insulin drip IV hydration Serial labs Endo consult noted Fingerstick w/ coverage Code(s): E13.10 - OTH DIABETES MELLITUS WITH KETOACIDOSIS WITHOUT COMA Qualifiers: Diabetes mellitus type: due to underlying condition Diabetes mellitus complication detail: with coma Qualified Code(s): E08.11 - Diabetes mellitus due to underlying condition with ketoacidosis with coma (2) HTN (hypertension) Assessment/Plan: Cont asa/hctz BP stable Code(s): I10 - ESSENTIAL (PRIMARY) HYPERTENSION (3) Substance abuse Assessment/Plan: Cont lorazepam prn for etoh w/drawal Cont thiamine/folic acid Cont methadone Code(s): F19.10 - OTHER PSYCHOACTIVE SUBSTANCE ABUSE, UNCOMPLICATED (4) HIV (human immunodeficiency virus infection) Code(s): Z21 - ASYMPTOMATIC HUMAN IMMUNODEFICIENCY VIRUS INFECTION STATUS
[2017-08-14] MEDS: chlordiazePOXIDE HCL 25 MG CAPSULE PO SCH (23:40)
[2017-08-15] MEDS: chlordiazePOXIDE HCL 25 MG CAPSULE PO SCH ×4 (05:56→23:46)
[2017-08-15] MEDS: INSULIN SLIDING SCALE (NOVOLOG) 1 VIAL SQ SCH ×5 (05:57→18:02)
[2017-08-15 06:46] LABS: BASO % 0.5 % (0-2.0); HEMOGLOBIN 12.2 GM/dL (11.7-16.9); LYMPH % 15.7 % (8-40); MCH 29.9 pg (25.7-33.7); MCHC 33.8 g/dl (32.0-35.9); MEAN CELL VOLUME 88.4 fl (80-96); MEAN PLT VOLUME 9.5 fl (7.5-11.1); MONO % 7.1 % (3.8-10.2); NEUT % 76.7 % (42.8-82.8); PLATELET COUNT 130 K/MM3 (134-434); RBC 4.07 M/mm3 (4.00-5.60); WHITE BLOOD COUNT 10.8 K/mm3 (4.0-10.0)
[2017-08-15 07:28] LABS: ALBUMIN 3.7 g/dl (3.4-5.0); ANION GAP 8 (8-16); BLOOD UREA NITROGEN 8 mg/dL (7-18); CALCIUM 8.7 mg/dL (8.5-10.1); CHLORIDE 103 mmol/L (98-107); CO2 28 mmol/L (21-32); GLUCOSE,RANDOM 60 mg/dL (74-106); MAGNESIUM 2.2 mg/dL (1.8-2.4); PHOSPHOROUS 1.6 mg/dL (2.5-4.9); POTASSIUM 3.1 mmol/L (3.5-5.1); SGPT/ALT 25 U/L (12-78); SODIUM 139 mmol/L (136-145)
[2017-08-15 07:40] LABS: ALK PHOS 89 U/L (45-117); BILIRUBIN,TOTAL 1.7 mg/dL (0.2-1.0); CREATININE 0.9 mg/dL (0.7-1.3); SGOT/AST 48 U/L (15-37); TOT PROT 7.6 g/dl (6.4-8.2)
--- NOTE | 2017-08-15 07:50 | PN ---
Physical Exam: SUBJECTIVE: Per family yesterday, he is altered from his baseline but this morning much more responsive and interactive. Had a few episodes of hypoglycemia overnight but resolved with D50. OBJECTIVE: Vital Signs Period Temp Pulse Resp BP Sys/Foley Pulse Ox Last 24 Hr 97.4 F-98.7 F 84-114 18-22 143-180/54-110 98-100 GENERAL: Much more alert today. In no acute distress HEAD: Normal with no signs of trauma. EYES: PERRL, sclera anicteric, conjunctiva clear. No ptosis. ENT: Ears normal, nares patent, oropharynx clear without exudates, dry mucous membranes. NECK: Trachea midline, full range of motion, supple. LUNGS: Breath sounds equal, clear to auscultation bilaterally, no wheezes, no crackles, no accessory muscle use. HEART: Regular rate and rhythm, S1, S2 without murmur, rub or gallop. ABDOMEN: Soft, non-tender, non-distended, normoactive bowel sounds, no guarding , no rebound, no hepatosplenomegaly, no masses. EXTREMITIES: No obvious deformity. 2+ pulses, warm, well-perfused, no edema. NEUROLOGICAL: Appropriate answers, no obvious neuro deficit PSYCH: Seems less agitated and in better spirits SKIN: Warm, dry, normal turgor, no rashes or lesions noted Laboratory Results - last 24 hr 08/13/17 08/13/17 08/13/17 07:01 10:29 11:35 WBC RBC Hgb Hct MCV MCH MCHC RDW Plt Count MPV Neutrophils % Lymphocytes % Monocytes % Eosinophils % Basophils % Sodium Potassium Chloride Carbon Dioxide Anion Gap BUN Creatinine POC Glucometer > 400 > 400 > 400 Random Glucose Calcium Phosphorus Magnesium Ammonia 08/13/17 08/14/17 08/14/17 12:45 08:25 09:44 WBC RBC Hgb Hct MCV MCH MCHC RDW Plt Count MPV Neutrophils % Lymphocytes % Monocytes % Eosinophils % Basophils % Sodium Potassium Chloride Carbon Dioxide Anion Gap BUN Creatinine POC Glucometer > 400 261.56852 252.30897 Random Glucose Calcium Phosphorus Magnesium Ammonia 08/14/17 08/14/17 08/14/17 10:40 11:13 12:13 WBC RBC Hgb Hct MCV MCH MCHC RDW Plt Count MPV Neutrophils % Lymphocytes % Monocytes % Eosinophils % Basophils % Sodium 141 Potassium 5.1 D Chloride 110 H Carbon Dioxide 16 L Anion Gap 15 BUN 15 Creatinine 1.2 POC Glucometer 208.36793 191.71836 Random Glucose 194 H Calcium 8.6 Phosphorus Magnesium Ammonia 08/14/17 08/14/17 08/14/17 14:09 15:00 15:21 WBC RBC Hgb Hct MCV MCH MCHC RDW Plt Count MPV Neutrophils % Lymphocytes % Monocytes % Eosinophils % Basophils % Sodium 144 Potassium 3.2 L D Chloride 110 H Carbon Dioxide 26 D Anion Gap 8 BUN 12 Creatinine 1.0 POC Glucometer 134.64752 107.35003 Random Glucose 92 D Calcium 8.6 Phosphorus Magnesium Ammonia 08/14/17 08/14/17 08/14/17 18:19 19:45 22:26 WBC RBC Hgb Hct MCV MCH MCHC RDW Plt Count MPV Neutrophils % Lymphocytes % Monocytes % Eosinophils % Basophils % Sodium 139 Potassium 3.7 Chloride 105 Carbon Dioxide 22 Anion Gap 12 BUN 10 Creatinine 1.0 POC Glucometer 216.57012 287.54474 Random Glucose 166 H D Calcium 8.7 Phosphorus 1.8 L D Magnesium 1.8 D Ammonia 08/15/17 08/15/17 08/15/17 04:04 05:05 05:05 WBC 10.8 H RBC 4.07 Hgb 12.2 D Hct 36.0 MCV 88.4 MCH 29.9 MCHC 33.8 RDW 15.0 Plt Count 130 L MPV 9.5 Neutrophils % 76.7 Lymphocytes % 15.7 D Monocytes % 7.1 Eosinophils % 0.0 Basophils % 0.5 Sodium Potassium Chloride Carbon Dioxide Anion Gap BUN Creatinine POC Glucometer 179.96913 Random Glucose Calcium Phosphorus Magnesium Ammonia 25.38 Active Medications Generic Name Dose Route Start Last Admin Trade Name Freq PRN Reason Stop Dose Admin Aspirin 81 mg 08/14/17 10:00 08/14/17 11:03 Ecotrin - PO 81 mg DAILY [facility] Administration Chlordiazepoxide HCl 50 mg 08/14/17 23:00 08/15/17 05:56 Librium - PO 08/15/17 17:01 50 mg [id number] [facility] Administration Chlordiazepoxide HCl 25 mg 08/15/17 23:00 Librium - PO 08/16/17 17:01 [id number] [facility] Chlordiazepoxide HCl 15 mg 08/16/17 23:00 Librium - PO 08/17/17 17:01 [id number] [facility] Chlordiazepoxide HCl 25 mg 08/14/17 20:22 Librium - PO 08/17/17 20:21 Q4H PRN WITHDRAWAL(CONT SUBST) Heparin Sodium (Porcine) 5,000 unit 08/14/17 10:00 08/14/17 21:33 Heparin - SQ 5,000 unit BID [facility] Administration Hydrochlorothiazide 12.5 mg 08/14/17 10:00 08/14/17 11:04 Hctz - PO 12.5 mg DAILY [facility] Administration Dextrose/Sodium Chloride 40 meq in 1,000 mls @ 75 mls/hr 08/14/17 21:15 08/14 21:53 Dextrose 5%-Normal Saline+40 Meq Kcl - IV 75 mls/hr ASDIR [facility] Administration Insulin Aspart 1 vial 08/15/17 02:00 08/15/17 05:57 Novolog Vial Sliding Scale - SQ 5 units Q4HPO [facility] Administration Protocol Lorazepam 1 mg 08/14/17 00:11 Ativan Injection - IVPUSH Q6H PRN ANXIETY Methadone HCl 30 mg 08/15/17 08:00 Dolophine - PO Q12H [facility] Multivit/Folic Acid/Iron 1 tab 08/15/17 10:00 Vitamins (Sjr) - PO DAILY [facility] Ranolazine 500 mg 08/14/17 10:00 08/14/17 11:03 Ranexa - PO 500 mg DAILY [facility] Administration Thiamine HCl 100 mg 08/14/17 22:00 08/14/17 21:33 Vitamin B1 - PO 100 mg HS [facility] Administration Thiamine HCl 250 mg 08/14/17 20:30 Vitamin B1 Injection - IVPB Q6H [facility] ASSESSMENT/PLAN: PMH significant for HIV, HTN, HLD, DM, Hep C and polysubstance abuse (on methadone) presenting with DKA and seizure activity with closed anion gap and decreased BG, off insulin gtt and on SSI + long acting. Neuro: #AMS: Unclear if this is his baseline as patietn fluctuates from agitation to somnolence without ever being AOx3. He could still be post-ictal from his seizure or methadone intoxicated. - Head CT negative - Mental status resolving/ improving. # Seizure - Neuro checks - Can hold PPX as seizure resolved with ativan inthe setting of DKA which is now resolving # Substance abuse: - Watch for signs of withdrawal - Continue Methadone at 30 BID per primary team - On librium protocol - Substance abuse consult CV: #Hypertension: - Continue HCTZ 12.5 daily - Continue ranexa for angina Endo: # DKA: Gap closed, a few episodes of hypoglycemia - Continue insulin SSI with levemir 10 per primary team - Switched D5 NS to NS with 20meq K - BMP daily FEN: - Fluid per above - 40 kdur + K fluids per above - Start on regular diet PPX: -SQH -SCDs -No indication for a PPI Dispo: - Transfer to med surg. Visit type - Emergency Visit Emergency Visit: No - New Patient This patient is new to me today: No - Critical Care Critical Care patient: Yes Total Critical Care Time (in minutes): 35 Critical Care Statement: The care of this patient involved high complexity decision making to prevent further life threatening deterioration of the patient 's condition and/or to evaluate & treat vital organ system(s) failure or risk of failure.
--- NOTE | 2017-08-15 09:03 | PN ---
Progress Note (short form) - Note Progress Note: Drowsy but arousable. Vital Signs Period Temp Pulse Resp BP Sys/Foley Pulse Ox Last 24 Hr 97.4 F-98.7 F 84-114 18-22 143-180/54-107 98-98 PE: Drowsy, arousable Neck: Supple Lungs: CTA CVS: S1S2 Abd: Benign EXt: No edema CMP Sodium 139 mmol/L (136-145) 08/15/17 05:05 Potassium 3.1 mmol/L (3.5-5.1) L 08/15/17 05:05 Chloride 103 mmol/L (98-107) 08/15/17 05:05 Carbon Dioxide 28 mmol/L (21-32) D 08/15/17 05:05 Anion Gap 8 (8-16) 08/15/17 05:05 BUN 8 mg/dL (7-18) 08/15/17 05:05 Creatinine 0.9 mg/dL (0.7-1.3) 08/15/17 05:05 Creat Clearance w eGFR > 60 (>60) 08/15/17 05:05 POC Glucometer 179.15961 UNITS (80-120) 08/15/17 04:04 Random Glucose 60 mg/dL (74-106) L D 08/15/17 05:05 Lactic Acid 2.1 mmol/L (0.4-2.0) H* 08/13/17 11:55 Calcium 8.7 mg/dL (8.5-10.1) 08/15/17 05:05 Phosphorus 1.6 mg/dL (2.5-4.9) L 08/15/17 05:05 Magnesium 2.2 mg/dL (1.8-2.4) D 08/15/17 05:05 Total Bilirubin 1.7 mg/dL (0.2-1.0) H D 08/15/17 05:05 AST 48 U/L (15-37) H 08/15/17 05:05 ALT 25 U/L (12-78) 08/15/17 05:05 Alkaline Phosphatase 89 U/L (45-117) D 08/15/17 05:05 Ammonia 25.38 umol/L (11-32) 08/15/17 05:05 Creatine Kinase 91 IU/L (39-308) 08/13/17 07:40 Troponin I < 0.02 ng/ml (0.00-0.05) 08/13/17 07:40 Total Protein 7.6 g/dl (6.4-8.2) 08/15/17 05:05 Albumin 3.7 g/dl (3.4-5.0) 08/15/17 05:05 Vitamin B12 999 pg/ml (180-914) H 08/15/17 05:05 TSH 0.79 uIU/ml (0.358-3.74) D 08/15/17 05:05 Current Medications Generic Name Dose Route Start Last Admin Trade Name Freq PRN Reason Stop Dose Admin Aspirin 81 mg 08/14/17 10:00 08/14/17 11:03 Ecotrin - PO 81 mg DAILY [facility] Administration Chlordiazepoxide HCl 50 mg 08/14/17 23:00 08/15/17 05:56 Librium - PO 08/15/17 17:01 50 mg [id number] [facility] Administration Chlordiazepoxide HCl 25 mg 08/15/17 23:00 Librium - PO 08/16/17 17:01 [id number] [facility] Chlordiazepoxide HCl 15 mg 08/16/17 23:00 Librium - PO 08/17/17 17:01 [id number] [facility] Chlordiazepoxide HCl 25 mg 08/14/17 20:22 Librium - PO 08/17/17 20:21 Q4H PRN WITHDRAWAL(CONT SUBST) Heparin Sodium (Porcine) 5,000 unit 08/14/17 10:00 08/14/17 21:33 Heparin - SQ 5,000 unit BID [facility] Administration Hydrochlorothiazide 12.5 mg 08/14/17 10:00 08/14/17 11:04 Hctz - PO 12.5 mg DAILY [facility] Administration Dextrose/Sodium Chloride 40 meq in 1,000 mls @ 75 mls/hr 08/14/17 21:15 08/14 21:53 Dextrose 5%-Normal Saline+40 Meq Kcl - IV 75 mls/hr ASDIR [facility] Administration Insulin Aspart 1 vial 08/15/17 02:00 08/15/17 05:57 Novolog Vial Sliding Scale - SQ 5 units Q4HPO [facility] Administration Protocol Lorazepam 1 mg 08/14/17 00:11 Ativan Injection - IVPUSH Q6H PRN ANXIETY Methadone HCl 30 mg 08/15/17 08:00 Dolophine - PO Q12H [facility] Multivit/Folic Acid/Iron 1 tab 08/15/17 10:00 Vitamins (Sjr) - PO DAILY [facility] Ranolazine 500 mg 08/14/17 10:00 08/14/17 11:03 Ranexa - PO 500 mg DAILY [facility] Administration Thiamine HCl 100 mg 08/14/17 22:00 08/14/17 21:33 Vitamin B1 - PO 100 mg HS [facility] Administration Thiamine HCl 250 mg 08/14/17 20:30 Vitamin B1 Injection - IVPB Q6H [facility] AP: DKA Brittle DM ADEEL: Normal Creatinine now BGM Q 4hr currently on D5 1/2NS 75 ml/hr May increase D5 1/2 NS to 125 or change fluid to D10 1/2 NS at 60ml/hr with KCl if necessary to maintain blood sugar >120 and K+ around 4. Monitor electrolytes Electrolyte replacement as necessary Levemir 12 units daily Novolog SS coverage Q4 hrs Further management as per ICU team.
[2017-08-15 09:35] LABS: RPR REACTIVE 1:1 (NONREACTIVE)
[2017-08-15] MEDS ORDERED: PRENATAL VITAMINS W/ FOLIC ACID TABLET (FP) PO SCH (10:00)
[2017-08-15] MEDS ORDERED: SODIUM CHLORIDE IVPB ONE (10:00)
[2017-08-15] MEDS: ASPIRIN COATED 81 MG TABLET.EC PO SCH (10:00)
[2017-08-15] MEDS ORDERED: POTASSIUM PHOSPHATE IVPB ONE (10:00)
[2017-08-15 11:30] LABS: TREPONEMA ANTIBODY NON REACTIVE (NONREACTIVE)
[2017-08-15] MEDS ORDERED: PT OWN MED DRAWER 7, Y5N ONE (11:46)
[2017-08-15] MEDS: HYDROCHLOROTHIAZIDE 12.5 MG CAPSULE (FP) PO SCH (11:58)
[2017-08-15] MEDS: RANOLAZINE E.R. 500 MG TABLET (FP) PO SCH (11:59)
--- NOTE | 2017-08-15 12:16 | PN ---
Teaching Attending Note Name of Resident: Melba Epstein ATTENDING PHYSICIAN STATEMENT I saw and evaluated the patient. I reviewed the resident's note and discussed the case with the resident. I agree with the resident's findings and plan as documented. SUBJECTIVE: Pt seen and examined in the ICU. Off insulin gtt. More alert, awake today. OBJECTIVE: Last Vital Signs Temp Pulse Resp BP Pulse Ox 97.4 F L 109 H 18 150/70 100 08/15/17 02:00 08/15/17 11:11 08/15/17 06:00 08/15/17 06:00 08/15/17 11:11 Intake & Output 08/12/17 08/13/17 08/14/17 08/15/17 23:59 23:59 23:59 23:59 Intake Total 5118.5 1756 Output Total 1600 1500 Balance 5118.5 156 -1500 Weight 64.546 kg 67.16 kg 67.585 kg Gen: more alert, awake Heart: tachycardic, regular Lung: decreased breath sounds at the bases Abd: soft, nontender Ext: no edema CBC, BMP 08/15/17 05:05 08/15/17 05:05 Active Medications Aspirin (Ecotrin -) 81 mg PO DAILY [facility] Last Admin: 08/15/17 10:00 Dose: 81 mg Chlordiazepoxide HCl (Librium -) 50 mg PO [id number] [facility] Stop: 08/15/17 17:01 Last Admin: 08/15/17 12:01 Dose: 50 mg Chlordiazepoxide HCl (Librium -) 25 mg PO [id number] [facility] Stop: 08/16/17 17:01 Chlordiazepoxide HCl (Librium -) 15 mg PO [id number] [facility] Stop: 08/17/17 17:01 Chlordiazepoxide HCl (Librium -) 25 mg PO Q4H PRN PRN Reason: WITHDRAWAL(CONT SUBST) Stop: 08/17/17 20:21 Heparin Sodium (Porcine) (Heparin -) 5,000 unit SQ TID [facility] Hydrochlorothiazide (Hctz -) 12.5 mg PO DAILY [facility] Last Admin: 08/15/17 11:58 Dose: 12.5 mg Dextrose/Sodium Chloride (Dextrose 5%-Normal Saline+40 Meq Kcl -) 40 meq in 1, 000 mls @ 75 mls/hr IV ASDIR [facility] Last Admin: 08/14/17 21:53 Dose: 75 mls/hr Potassium Phosphate 40 mm/ (Sodium Chloride) 513.3333 mls @ 62.5 mls/hr IVPB ONCE ONE Stop: 08/15/17 18:12 Last Admin: 08/15/17 11:59 Dose: 62.5 mls/hr Insulin Aspart (Novolog Vial Sliding Scale -) 1 vial SQ Q4HPO [facility] PRN Reason: Protocol Last Admin: 08/15/17 11:36 Dose: Not Given Insulin Detemir (Levemir Vial) 10 units SQ [id number] Lorazepam (Ativan Injection -) 1 mg IVPUSH Q6H PRN PRN Reason: ANXIETY Methadone HCl (Dolophine -) 30 mg PO Q12H [facility] Multivit/Folic Acid/Iron ( Vitamins (Sjr) -) 1 tab PO DAILY [facility] Last Admin: 08/15/17 11:58 Dose: 1 tab Ranolazine (Ranexa -) 500 mg PO DAILY [facility] Last Admin: 08/15/17 11:59 Dose: 500 mg Thiamine HCl (Vitamin B1 -) 100 mg PO [facility] Last Admin: 08/14/17 21:33 Dose: 100 mg ASSESSMENT AND PLAN: Diabetic Ketoacidosis Lactic Acidosis Acute Kidney Injury Alcohol Abuse Seizure HTN DM Hep C HIV - continue IVF - replete lytes - monitor urine output, creatinine - PO as tolerated - OOB to chair - DVT prophylaxis - can monitor on floor critical care time spent in reviewing chart, evaluating patient and formulating plan 35 min
[2017-08-15] MEDS ORDERED: INSULIN REGULAR HUMAN 100 UNITS/ML *VIAL ONE (13:07)
[2017-08-15] MEDS ORDERED: POTASSIUM CHLORIDE TABS 20 MEQ TABLET.ER (FP) PO ONE (13:09)
[2017-08-15] MEDS ORDERED: HEPARIN NA (PORCINE) 5,000 UNITS/ML 1ML VIAL SQ SCH (14:00)
[2017-08-15] MEDS: SODIUM CHLORIDE 0.9%/KCL 20 MEQ/1,000 ML INFUS.BAG IV SCH (14:44)
--- NOTE | 2017-08-15 17:35 | PN ---
Progress Note (short form) - Note Progress Note: NEUROLOGY FOLLOW-UP: Events reviewed and discussed with RN and HO. Metabolically improved but remains confused. Still on low-dose oral thiamine. No further seizures. Decreased agitation on Librium. Exam: Neck supple. [address]- "on Rd[address] No month, no year. Full wilson, EOM's. moves all 4's well. Areflexic in legs. IMP: Non-focal exam still with moderately severe encephalopathy. Probably multifactorial but would still Rx for ETOH withdrawal and Wernicke's Encephalopathy. SUGGEST: resume high-dose parenteral thiamine as ordered. Continue detox protocal and current metabolic management. Thank you very much, Omid Murdock MD
[2017-08-15] MEDS: THIAMINE HCL 200 MG/2 ML VIAL IVPB SCH ×3 (18:47→21:56)
[2017-08-15] MEDS: METHADONE HCL 10 MG TABLET PO SCH (21:19)
[2017-08-15] MEDS: INSULIN DETEMIR 100 UNITS/ML MDV SQ SCH (21:57)
[2017-08-15] MEDS: HEPARIN NA (PORCINE) 5,000 UNITS/ML 1ML VIAL SQ SCH (21:57)
[2017-08-15] MEDS ORDERED: INSULIN SLIDING SCALE (NOVOLOG) 1 VIAL SQ SCH (22:00)
[2017-08-15] MEDS ORDERED: INSULIN DETEMIR 100 UNITS/ML MDV SQ SCH (22:00)
[2017-08-15] MEDS ORDERED: chlordiazePOXIDE HCL 25 MG CAPSULE PO SCH ×2 (23:00)
--- NOTE | 2017-08-15 23:28 | PN ---
Progress Note, Physician - Current Medication List Current Medications: Active Medications Aspirin (Ecotrin -) 81 mg PO DAILY [facility] Chlordiazepoxide HCl (Librium -) 25 mg PO Q4H PRN PRN Reason: WITHDRAWAL(CONT SUBST) Stop: 08/17/17 20:21 Chlordiazepoxide HCl (Librium -) 25 mg PO [id number] [facility] Stop: 08/16/17 17:01 Chlordiazepoxide HCl (Librium -) 15 mg PO [id number] [facility] Stop: 08/17/17 17:01 Heparin Sodium (Porcine) (Heparin -) 5,000 unit SQ TID [facility] Last Admin: 08/15/17 21:57 Dose: 5,000 unit Hydrochlorothiazide (Hctz -) 12.5 mg PO DAILY [facility] Potassium Chloride/Sodium Chloride (Ns+20 Meq Kcl -) 20 meq in 1,000 mls @ 100 mls/hr IV ASDIR [facility] Last Admin: 08/15/17 14:44 Dose: 100 mls/hr Insulin Aspart (Novolog Vial Sliding Scale -) 1 vial SQ Q6HPO [facility] PRN Reason: Protocol Insulin Detemir (Levemir Vial) 10 units SQ HS [facility] Last Admin: 08/15/17 21:57 Dose: 10 units Lorazepam (Ativan Injection -) 1 mg IVPUSH Q6H PRN PRN Reason: ANXIETY Methadone HCl (Dolophine -) 30 mg PO Q12H [facility] Multivit/Folic Acid/Iron ( Vitamins (Sjr) -) 1 tab PO DAILY [facility] Ranolazine (Ranexa -) 500 mg PO DAILY [facility] Thiamine HCl (Vitamin B1 Injection -) 250 mg IVPB Q6H-IV [facility] Last Admin: 08/15/17 21:56 Dose: 250 mg - Objective Vital Signs: Vital Signs Temperature 97.4 F L 08/15/17 02:00 Pulse Rate 106 H 08/15/17 20:00 Respiratory Rate 20 08/15/17 20:00 Blood Pressure 166/78 08/15/17 20:00 O2 Sat by Pulse Oximetry (%) 100 08/15/17 20:00 Labs: CBC, BMP 08/15/17 05:05 08/15/17 05:05 Problem List - Problems (1) DKA (diabetic ketoacidosis) Code(s): E13.10 - OTH DIABETES MELLITUS WITH KETOACIDOSIS WITHOUT COMA Qualifiers: Diabetes mellitus type: due to underlying condition Diabetes mellitus complication detail: with coma Qualified Code(s): E08.11 - Diabetes mellitus due to underlying condition with ketoacidosis with coma (2) HTN (hypertension) Code(s): I10 - ESSENTIAL (PRIMARY) HYPERTENSION (3) Substance abuse Code(s): F19.10 - OTHER PSYCHOACTIVE SUBSTANCE ABUSE, UNCOMPLICATED (4) HIV (human immunodeficiency virus infection) Code(s): Z21 - ASYMPTOMATIC HUMAN IMMUNODEFICIENCY VIRUS INFECTION STATUS
[2017-08-16] MEDS: INSULIN SLIDING SCALE (NOVOLOG) 1 VIAL SQ SCH ×4 (00:28→17:33)
[2017-08-16] MEDS ORDERED: PT OWN MED DRAWER 7, Y5N ONE ×3 (01:26→12:36)
[2017-08-16] MEDS: THIAMINE HCL 200 MG/2 ML VIAL IVPB SCH ×3 (02:32→15:35)
[2017-08-16] MEDS: chlordiazePOXIDE HCL 25 MG CAPSULE PO SCH ×3 (05:38→17:28)
[2017-08-16] MEDS: HEPARIN NA (PORCINE) 5,000 UNITS/ML 1ML VIAL SQ SCH ×3 (05:39→21:22)
[2017-08-16 07:43] LABS: BASO % 0.4 % (0-2.0); EOS % 0.1 % (0-4.5); HEMATOCRIT 36.4 % (35.4-49); HEMOGLOBIN 11.7 GM/dL (11.7-16.9); LYMPH % 20.6 % (8-40); MCH 28.8 pg (25.7-33.7); MCHC 32.2 g/dl (32.0-35.9); MEAN CELL VOLUME 89.5 fl (80-96); MEAN PLT VOLUME 9.5 fl (7.5-11.1); NEUT % 71.9 % (42.8-82.8); PLATELET COUNT 106 K/MM3 (134-434); RBC 4.07 M/mm3 (4.00-5.60); RDW 14.9 % (11.9-15.9); WHITE BLOOD COUNT 6.9 K/mm3 (4.0-10.0)
[2017-08-16 08:04] LABS: ALBUMIN 3.2 g/dl (3.4-5.0); ANION GAP 13 (8-16); BLOOD UREA NITROGEN 11 mg/dL (7-18); CALCIUM 8.5 mg/dL (8.5-10.1); CHLORIDE 100 mmol/L (98-107); CO2 24 mmol/L (21-32); GLUCOSE,RANDOM 273 mg/dL (74-106); SGOT/AST 30 U/L (15-37); SGPT/ALT 19 U/L (12-78); SODIUM 137 mmol/L (136-145)
[2017-08-16 08:06] LABS: ALK PHOS 87 U/L (45-117); BILIRUBIN,TOTAL 1.5 mg/dL (0.2-1.0); CREATININE 0.8 mg/dL (0.7-1.3)
--- NOTE | 2017-08-16 08:23 | PN ---
[facility] Progress Note (SOAP) Subjective: much improved, transferred to floor, no complaints Objective: 08/16/17 08:21 Vital Signs - 24 hr 08/15/17 08/15/17 08/15/17 09:00 11:11 12:00 Pulse Rate 109 H 110 H Respiratory 18 18 Rate Blood Pressure 160/106 O2 Sat by Pulse 100 100 Oximetry (%) 08/15/17 08/15/17 08/15/17 14:00 16:00 18:00 Pulse Rate 108 H 111 H Respiratory 16 20 Rate Blood Pressure 144/104 172/101 172/91 O2 Sat by Pulse Oximetry (%) 08/15/17 08/16/17 20:00 06:00 Pulse Rate 106 H 100 H Respiratory 20 20 Rate Blood Pressure 166/78 166/113 O2 Sat by Pulse 100 Oximetry (%) hypertetnsive, tachycardic and ao x3 Assessment: 08/16/17 08:22 completed detox, still tachycardic and hyerpetensive, need to hydrate adn control bp, patient does not want rehab at this time, d/w nurse will d/c home to follow up at [facility] for Intensive outpatient treatment for his alcohol use disorder.
[2017-08-16] MEDS: HYDROCHLOROTHIAZIDE 12.5 MG CAPSULE (FP) PO SCH (09:55)
[2017-08-16] MEDS: ASPIRIN COATED 81 MG TABLET.EC PO SCH (09:55)
[2017-08-16] MEDS: RANOLAZINE E.R. 500 MG TABLET (FP) PO SCH (10:02)
[2017-08-16] MEDS ORDERED: INSULIN (NOVOLOG) ASPART 100 UNITS/ML 10ML VIAL ONE (12:36)
--- NOTE | 2017-08-16 15:14 | PN ---
Physical Exam: SUBJECTIVE: Patient seen and examined. OBJECTIVE: Vital Signs Period Temp Pulse Resp BP Sys/Foley Pulse Ox Last 24 Hr 99-111 16-20 166-172/78-113 99-100 GENERAL: The patient is awake, alert, and fully oriented, in no acute distress. NECK: Trachea midline, full range of motion, supple. LUNGS: Breath sounds equal, clear to auscultation bilaterally, no wheezes, no crackles, no accessory muscle use. HEART: Tachycardic with regular rhythm, S1, S2 without murmur, rub or gallop. ABDOMEN: SNTND NEUROLOGICAL: Cranial nerves II through XII grossly intact. Normal speech, gait not observed. SKIN: stage 2 pressure ulcers to b/l heels Laboratory Results - last 24 hr 08/15/17 08/15/17 08/15/17 00:27 02:03 05:51 WBC RBC Hgb Hct MCV MCH MCHC RDW Plt Count MPV Neutrophils % Lymphocytes % Monocytes % Eosinophils % Basophils % Sodium Potassium Chloride Carbon Dioxide Anion Gap BUN Creatinine Creat Clearance w eGFR POC Glucometer 342.89169 337.90536 88.58403 Random Glucose Calcium Total Bilirubin AST ALT Alkaline Phosphatase Total Protein Albumin 08/15/17 08/15/17 08/15/17 08:07 10:31 12:55 WBC RBC Hgb Hct MCV MCH MCHC RDW Plt Count MPV Neutrophils % Lymphocytes % Monocytes % Eosinophils % Basophils % Sodium Potassium Chloride Carbon Dioxide Anion Gap BUN Creatinine Creat Clearance w eGFR POC Glucometer 82.07433 85.58263 253.35627 Random Glucose Calcium Total Bilirubin AST ALT Alkaline Phosphatase Total Protein Albumin 08/15/17 08/15/17 08/15/17 14:48 16:55 17:55 WBC RBC Hgb Hct MCV MCH MCHC RDW Plt Count MPV Neutrophils % Lymphocytes % Monocytes % Eosinophils % Basophils % Sodium Potassium Chloride Carbon Dioxide Anion Gap BUN Creatinine Creat Clearance w eGFR POC Glucometer 145.88725 163.55750 161.70037 Random Glucose Calcium Total Bilirubin AST ALT Alkaline Phosphatase Total Protein Albumin 08/15/17 08/16/17 08/16/17 21:41 05:43 06:00 WBC 6.9 D RBC 4.07 Hgb 11.7 Hct 36.4 MCV 89.5 MCH 28.8 MCHC 32.2 RDW 14.9 Plt Count 106 L MPV 9.5 Neutrophils % 71.9 Lymphocytes % 20.6 D Monocytes % 7.0 Eosinophils % 0.1 D Basophils % 0.4 Sodium Potassium Chloride Carbon Dioxide Anion Gap BUN Creatinine Creat Clearance w eGFR POC Glucometer 280.04773 296 Random Glucose Calcium Total Bilirubin AST ALT Alkaline Phosphatase Total Protein Albumin 08/16/17 08/16/17 06:00 12:40 WBC RBC Hgb Hct MCV MCH MCHC RDW Plt Count MPV Neutrophils % Lymphocytes % Monocytes % Eosinophils % Basophils % Sodium 137 Potassium 4.0 D Chloride 100 Carbon Dioxide 24 Anion Gap 13 BUN 11 D Creatinine 0.8 Creat Clearance w eGFR > 60 POC Glucometer 245 Random Glucose 273 H D Calcium 8.5 Total Bilirubin 1.5 H AST 30 D ALT 19 D Alkaline Phosphatase 87 Total Protein 7.0 Albumin 3.2 L Active Medications Generic Name Dose Route Start Last Admin Trade Name Freq PRN Reason Stop Dose Admin Aspirin 81 mg 08/16/17 10:00 08/16/17 09:55 Ecotrin - PO 81 mg DAILY [facility] Administration Chlordiazepoxide HCl 25 mg 08/15/17 20:27 Librium - PO 08/17/17 20:21 Q4H PRN WITHDRAWAL(CONT SUBST) Chlordiazepoxide HCl 25 mg 08/15/17 23:00 08/16/17 12:37 Librium - PO 08/16/17 17:01 25 mg [id number] [facility] Administration Chlordiazepoxide HCl 15 mg 08/16/17 23:00 Librium - PO 08/17/17 17:01 [id number] [facility] Heparin Sodium (Porcine) 5,000 unit 08/15/17 22:00 08/16/17 05:39 Heparin - SQ 5,000 unit TID [facility] Administration Hydrochlorothiazide 12.5 mg 08/16/17 10:00 08/16/17 09:55 Hctz - PO 12.5 mg DAILY [facility] Administration Potassium Chloride/Sodium Chloride 20 meq in 1,000 mls @ 100 mls/hr 08/15/17 13:15 08/15/17 14:44 Ns+20 Meq Kcl - IV 100 mls/hr ASDIR [facility] Administration Insulin Aspart 1 vial 08/16/17 00:00 08/16/17 12:42 Novolog Vial Sliding Scale - SQ 3 units Q6HPO [facility] Administration Protocol Insulin Detemir 10 units 08/15/17 22:00 08/15/17 21:57 Levemir Vial SQ 10 units HS [facility] Administration Lorazepam 1 mg 08/15/17 20:27 Ativan Injection - IVPUSH Q6H PRN ANXIETY Methadone HCl 30 mg 08/16/17 08:00 Dolophine - PO Q12H [facility] Multivit/Folic Acid/Iron 1 tab 08/16/17 10:00 Vitamins (Sjr) - PO DAILY [facility] Ranolazine 500 mg 08/16/17 10:00 08/16/17 10:02 Ranexa - PO 500 mg DAILY [facility] Administration Thiamine HCl 250 mg 08/15/17 17:30 08/16/17 09:54 Vitamin B1 Injection - IVPB 250 mg Q6H-IV [facility] Administration Thiamine HCl 100 mg 08/16/17 22:00 Vitamin B1 - PO HS [facility] ASSESSMENT/PLAN: A: 66 yo man with DM, HTN and polysubstance abuse admitted with acute w/d and htn. P: Acute w/d - CIWA-AR score- 3 - Librium taper - Ativan PRN - folate - thiamine - methadone per detox - monitor for s/s w/d HTN - poorly controlled - HCTZ - add Lisinopril 5mg daily as pt is diabetic DM - FSBG q6h - Levemir - ISS Dispo- requires continued inpatient treatment of his acute medical conditions Visit type - Emergency Visit Emergency Visit: Yes ED Registration Date: 08/13/17 Care time: The patient presented to the Emergency Department on the above date and was hospitalized for further evaluation of their emergent condition. - New Patient This patient is new to me today: Yes Date on this admission: 08/16/17 - Critical Care Critical Care patient: No
[2017-08-16] MEDS: SODIUM CHLORIDE 0.9%/KCL 20 MEQ/1,000 ML INFUS.BAG IV SCH (15:35)
[2017-08-16] MEDS: chlordiazePOXIDE HCL 25 MG CAPSULE PO PRN (15:49)
[2017-08-16] MEDS ORDERED: LISINOPRIL 5 MG TABLET (FP) PO ONE (17:00)
[2017-08-16] MEDS: PRENATAL VITAMINS W/ FOLIC ACID TABLET (FP) PO SCH (19:41)
[2017-08-16] MEDS ORDERED: THIAMINE HCL 200 MG/2 ML VIAL IVPB SCH (21:00)
[2017-08-16] MEDS: THIAMINE HCL 100 MG TABLET (FP) PO SCH (21:22)
[2017-08-16] MEDS: INSULIN DETEMIR 100 UNITS/ML MDV SQ SCH (21:31)
[2017-08-16] MEDS ORDERED: chlordiazePOXIDE 5 MG CAPSULE PO SCH (23:00)
[2017-08-16] MEDS: chlordiazePOXIDE 5 MG CAPSULE PO SCH (23:42)
[2017-08-17] MEDS: INSULIN SLIDING SCALE (NOVOLOG) 1 VIAL SQ SCH ×5 (00:05→22:58)
[2017-08-17] MEDS: HEPARIN NA (PORCINE) 5,000 UNITS/ML 1ML VIAL SQ SCH ×3 (05:17→22:55)
[2017-08-17] MEDS: chlordiazePOXIDE 5 MG CAPSULE PO SCH ×3 (05:17→16:19)
[2017-08-17 08:36] LABS: BASO % 0.5 % (0-2.0); EOS % 0.2 % (0-4.5); HEMATOCRIT 37.8 % (35.4-49); HEMOGLOBIN 12.1 GM/dL (11.7-16.9); LYMPH % 23.8 % (8-40); MCH 28.7 pg (25.7-33.7); MCHC 32.1 g/dl (32.0-35.9); MEAN CELL VOLUME 89.3 fl (80-96); MEAN PLT VOLUME 10.3 fl (7.5-11.1); NEUT % 65.5 % (42.8-82.8); PLATELET COUNT 115 K/MM3 (134-434); RBC 4.23 M/mm3 (4.00-5.60); RDW 14.7 % (11.9-15.9); WHITE BLOOD COUNT 7.3 K/mm3 (4.0-10.0)
[2017-08-17 09:03] LABS: CHLORIDE 103 mmol/L (98-107); POTASSIUM 3.6 mmol/L (3.5-5.1); SODIUM 140 mmol/L (136-145)
[2017-08-17 09:36] LABS: ALBUMIN 3.4 g/dl (3.4-5.0); ALK PHOS 91 U/L (45-117); ANION GAP 14 (8-16); BILIRUBIN,TOTAL 1.3 mg/dL (0.2-1.0); BLOOD UREA NITROGEN 9 mg/dL (7-18); CALCIUM 8.8 mg/dL (8.5-10.1); CO2 23 mmol/L (21-32); CREATININE 0.8 mg/dL (0.7-1.3); GLUCOSE,RANDOM 78 mg/dL (74-106); SGOT/AST 31 U/L (15-37); SGPT/ALT 19 U/L (12-78); TOT PROT 7.4 g/dl (6.4-8.2)
[2017-08-17] MEDS ORDERED: PT OWN MED DRAWER 7, Y5N ONE (09:39)
[2017-08-17] MEDS: LORazepam 2 MG/ML SDV VIAL IVPUSH PRN ×2 (09:43→14:39)
[2017-08-17] MEDS: RANOLAZINE E.R. 500 MG TABLET (FP) PO SCH (09:43)
[2017-08-17] MEDS: LISINOPRIL 5 MG TABLET (FP) PO SCH (09:43)
[2017-08-17] MEDS: ASPIRIN COATED 81 MG TABLET.EC PO SCH (09:43)
[2017-08-17] MEDS: PRENATAL VITAMINS W/ FOLIC ACID TABLET (FP) PO SCH (09:43)
[2017-08-17] MEDS: HYDROCHLOROTHIAZIDE 12.5 MG CAPSULE (FP) PO SCH (09:43)
--- NOTE | 2017-08-17 10:50 | PN ---
Progress Note (short form) - Note Progress Note: Awake alert but confused apetite good. Vital Signs Period Temp Pulse Resp BP Sys/Foley Pulse Ox Last 24 Hr 97.8 F-98.4 F 90-112 16-18 154-158/76-113 99-100 PE: Awake alert, confused Neck: Supple Lungs: CTA CVS: S1S2 Abd: Benign EXt: No edema CMP Sodium 140 mmol/L (136-145) 08/17/17 06:00 Potassium 3.6 mmol/L (3.5-5.1) 08/17/17 06:00 Chloride 103 mmol/L (98-107) 08/17/17 06:00 Carbon Dioxide 23 mmol/L (21-32) 08/17/17 06:00 Anion Gap 14 (8-16) 08/17/17 06:00 BUN 9 mg/dL (7-18) 08/17/17 06:00 Creatinine 0.8 mg/dL (0.7-1.3) 08/17/17 06:00 Creat Clearance w eGFR > 60 (>60) 08/17/17 06:00 POC Glucometer 92 UNITS (80-120) 08/17/17 09:52 Random Glucose 78 mg/dL (74-106) D 08/17/17 06:00 Lactic Acid 2.1 mmol/L (0.4-2.0) H* 08/13/17 11:55 Calcium 8.8 mg/dL (8.5-10.1) 08/17/17 06:00 Phosphorus 1.6 mg/dL (2.5-4.9) L 08/15/17 05:05 Magnesium 2.2 mg/dL (1.8-2.4) D 08/15/17 05:05 Total Bilirubin 1.3 mg/dL (0.2-1.0) H 08/17/17 06:00 AST 31 U/L (15-37) 08/17/17 06:00 ALT 19 U/L (12-78) 08/17/17 06:00 Alkaline Phosphatase 91 U/L (45-117) 08/17/17 06:00 Ammonia 25.38 umol/L (11-32) 08/15/17 05:05 Creatine Kinase 91 IU/L (39-308) 08/13/17 07:40 Troponin I < 0.02 ng/ml (0.00-0.05) 08/13/17 07:40 Total Protein 7.4 g/dl (6.4-8.2) 08/17/17 06:00 Albumin 3.4 g/dl (3.4-5.0) 08/17/17 06:00 Vitamin B12 999 pg/ml (180-914) H 08/15/17 05:05 TSH 0.79 uIU/ml (0.358-3.74) D 08/15/17 05:05 Current Medications Generic Name Dose Route Start Last Admin Trade Name Freq PRN Reason Stop Dose Admin Aspirin 81 mg 08/16/17 10:00 08/17/17 09:43 Ecotrin - PO 81 mg DAILY [facility] Administration Chlordiazepoxide HCl 25 mg 08/15/17 20:27 08/16/17 15:49 Librium - PO 08/17/17 20:21 25 mg Q4H PRN Administration WITHDRAWAL(CONT SUBST) Chlordiazepoxide HCl 15 mg 08/16/17 23:00 08/17/17 05:17 Librium - PO 08/17/17 17:01 15 mg [id number] [facility] Administration Heparin Sodium (Porcine) 5,000 unit 08/15/17 22:00 08/17/17 05:17 Heparin - SQ 5,000 unit TID [facility] Administration Hydrochlorothiazide 12.5 mg 08/16/17 10:00 08/17/17 09:43 Hctz - PO 12.5 mg DAILY [facility] Administration Potassium Chloride/Sodium Chloride 20 meq in 1,000 mls @ 100 mls/hr 08/15/17 13:15 08/16/17 15:35 Ns+20 Meq Kcl - IV Not Given ASDIR [facility] Insulin Aspart 1 vial 08/16/17 00:00 08/17/17 05:58 Novolog Vial Sliding Scale - SQ Not Given Q6HPO [facility] Protocol Insulin Detemir 10 units 08/15/17 22:00 08/16/17 21:31 Levemir Vial SQ 10 units HS [facility] Administration Lisinopril 5 mg 08/17/17 10:00 08/17/17 09:43 Prinivil PO 5 mg DAILY [facility] Administration Lorazepam 1 mg 08/15/17 20:27 08/17/17 09:43 Ativan Injection - IVPUSH 1 mg Q6H PRN Administration ANXIETY Methadone HCl 30 mg 08/16/17 08:00 Dolophine - PO Q12H [facility] Multivit/Folic Acid/Iron 1 tab 08/16/17 10:00 08/17/17 09:43 Vitamins (Sjr) - PO 1 tab DAILY [facility] Administration Ranolazine 500 mg 08/16/17 10:00 08/17/17 09:43 Ranexa - PO 500 mg DAILY [facility] Administration Thiamine HCl 100 mg 08/16/17 22:00 08/16/17 21:22 Vitamin B1 - PO 100 mg HS [facility] Administration AP: DKA Brittle DM ADEEL: Normal Creatinine now ETOH use BGM Q ACHS Monitor electrolytes Electrolyte replacement as necessary Levemir 10 units daily Novolog SS coverage QACHS Teach pt to monitor glucose and inject Insulin as he will need to go home on Insulin in view of recurrent DKA. Admitted on 11.08.16 with DKA. Further management as per medical team.
[2017-08-17] MEDS: SODIUM CHLORIDE 0.9%/KCL 20 MEQ/1,000 ML INFUS.BAG IV SCH (14:39)
[2017-08-17] MEDS: chlordiazePOXIDE HCL 25 MG CAPSULE PO PRN (17:05)
[2017-08-17] MEDS ORDERED: QUEtiapine FUMARATE 25 MG TABLET (FP) PO PRN (22:18)
--- NOTE | 2017-08-17 22:26 | PN ---
Progress Note, Physician - Current Medication List Current Medications: Active Medications Aspirin (Ecotrin -) 81 mg PO DAILY [facility] Last Admin: 08/17/17 09:43 Dose: 81 mg Heparin Sodium (Porcine) (Heparin -) 5,000 unit SQ TID [facility] Last Admin: 08/17/17 14:39 Dose: 5,000 unit Hydrochlorothiazide (Hctz -) 12.5 mg PO DAILY [facility] Last Admin: 08/17/17 09:43 Dose: 12.5 mg Insulin Aspart (Novolog Vial Sliding Scale -) 1 vial SQ TIDAC [facility] PRN Reason: Protocol Last Admin: 08/17/17 17:08 Dose: 2 units Insulin Aspart (Novolog Vial Sliding Scale -) 1 vial SQ HS [facility] PRN Reason: Protocol Insulin Detemir (Levemir Vial) 10 units SQ HS [facility] Last Admin: 08/16/17 21:31 Dose: 10 units Lisinopril (Prinivil) 5 mg PO DAILY [facility] Last Admin: 08/17/17 09:43 Dose: 5 mg Lorazepam (Ativan Injection -) 1 mg IVPUSH Q6H PRN PRN Reason: ANXIETY Last Admin: 08/17/17 14:39 Dose: 1 mg Methadone HCl (Dolophine -) 30 mg PO Q12H [facility] Multivit/Folic Acid/Iron ( Vitamins (Sjr) -) 1 tab PO DAILY [facility] Last Admin: 08/17/17 09:43 Dose: 1 tab Quetiapine Fumarate (Seroquel -) 25 mg PO TID PRN PRN Reason: AGITATION Ranolazine (Ranexa -) 500 mg PO DAILY [facility] Last Admin: 08/17/17 09:43 Dose: 500 mg Thiamine HCl (Vitamin B1 -) 100 mg PO [facility] Last Admin: 08/16/17 21:22 Dose: 100 mg - Objective Vital Signs: Vital Signs Temperature 98.4 F 08/17/17 17:15 Pulse Rate 109 H 08/17/17 17:15 Respiratory Rate 20 08/17/17 17:15 Blood Pressure 158/103 08/17/17 17:15 O2 Sat by Pulse Oximetry (%) 98 08/17/17 09:00 Labs: CBC, BMP 08/17/17 06:00 08/17/17 06:00 Problem List - Problems (1) DKA (diabetic ketoacidosis) Code(s): E13.10 - OTH DIABETES MELLITUS WITH KETOACIDOSIS WITHOUT COMA Qualifiers: Diabetes mellitus type: due to underlying condition Diabetes mellitus complication detail: with coma Qualified Code(s): E08.11 - Diabetes mellitus due to underlying condition with ketoacidosis with coma (2) HTN (hypertension) Code(s): I10 - ESSENTIAL (PRIMARY) HYPERTENSION (3) Substance abuse Code(s): F19.10 - OTHER PSYCHOACTIVE SUBSTANCE ABUSE, UNCOMPLICATED (4) HIV (human immunodeficiency virus infection) Code(s): Z21 - ASYMPTOMATIC HUMAN IMMUNODEFICIENCY VIRUS INFECTION STATUS
[2017-08-17] MEDS: INSULIN DETEMIR 100 UNITS/ML MDV SQ SCH (22:56)
[2017-08-17] MEDS: THIAMINE HCL 100 MG TABLET (FP) PO SCH (22:56)
[2017-08-18] MEDS: HEPARIN NA (PORCINE) 5,000 UNITS/ML 1ML VIAL SQ SCH ×3 (05:52→23:17)
[2017-08-18] MEDS: INSULIN SLIDING SCALE (NOVOLOG) 1 VIAL SQ SCH ×4 (06:00→23:22)
[2017-08-18] MEDS: LISINOPRIL 5 MG TABLET (FP) PO SCH (09:11)
[2017-08-18] MEDS: ASPIRIN COATED 81 MG TABLET.EC PO SCH (09:11)
[2017-08-18] MEDS: HYDROCHLOROTHIAZIDE 12.5 MG CAPSULE (FP) PO SCH (09:11)
[2017-08-18] MEDS: RANOLAZINE E.R. 500 MG TABLET (FP) PO SCH (09:11)
[2017-08-18] MEDS ORDERED: PT OWN MED DRAWER 7, Y5N ONE ×3 (09:24→23:15)
[2017-08-18] MEDS: PRENATAL VITAMINS W/ FOLIC ACID TABLET (FP) PO SCH (09:34)
--- NOTE | 2017-08-18 13:58 | PN ---
Progress Note (short form) - Note Progress Note: Awake but confused apetite good. BGM 200s no Hypos Vital Signs Period Temp Pulse Resp BP Sys/Foley Pulse Ox Last 24 Hr 97.6 F-98.8 F 90-109 18-20 125-166/94-108 PE: Awake , confused Neck: Supple Lungs: CTA CVS: S1S2 Abd: Benign EXt: No edema CMP Sodium 140 mmol/L (136-145) 08/17/17 06:00 Potassium 3.6 mmol/L (3.5-5.1) 08/17/17 06:00 Chloride 103 mmol/L (98-107) 08/17/17 06:00 Carbon Dioxide 23 mmol/L (21-32) 08/17/17 06:00 Anion Gap 14 (8-16) 08/17/17 06:00 BUN 9 mg/dL (7-18) 08/17/17 06:00 Creatinine 0.8 mg/dL (0.7-1.3) 08/17/17 06:00 Creat Clearance w eGFR > 60 (>60) 08/17/17 06:00 POC Glucometer 223 UNITS (80-120) 08/18/17 12:08 Random Glucose 78 mg/dL (74-106) D 08/17/17 06:00 Lactic Acid 2.1 mmol/L (0.4-2.0) H* 08/13/17 11:55 Calcium 8.8 mg/dL (8.5-10.1) 08/17/17 06:00 Phosphorus 1.6 mg/dL (2.5-4.9) L 08/15/17 05:05 Magnesium 2.2 mg/dL (1.8-2.4) D 08/15/17 05:05 Total Bilirubin 1.3 mg/dL (0.2-1.0) H 08/17/17 06:00 AST 31 U/L (15-37) 08/17/17 06:00 ALT 19 U/L (12-78) 08/17/17 06:00 Alkaline Phosphatase 91 U/L (45-117) 08/17/17 06:00 Ammonia 25.38 umol/L (11-32) 08/15/17 05:05 Creatine Kinase 91 IU/L (39-308) 08/13/17 07:40 Troponin I < 0.02 ng/ml (0.00-0.05) 08/13/17 07:40 Total Protein 7.4 g/dl (6.4-8.2) 08/17/17 06:00 Albumin 3.4 g/dl (3.4-5.0) 08/17/17 06:00 Vitamin B12 999 pg/ml (180-914) H 08/15/17 05:05 TSH 0.79 uIU/ml (0.358-3.74) D 08/15/17 05:05 Current Medications Generic Name Dose Route Start Last Admin Trade Name Freq PRN Reason Stop Dose Admin Aspirin 81 mg 08/16/17 10:00 08/18/17 09:11 Ecotrin - PO 81 mg DAILY [facility] Administration Heparin Sodium (Porcine) 5,000 unit 08/15/17 22:00 08/18/17 05:52 Heparin - SQ 5,000 unit TID [facility] Administration Hydrochlorothiazide 12.5 mg 08/16/17 10:00 08/18/17 09:11 Hctz - PO 12.5 mg DAILY [facility] Administration Insulin Aspart 1 vial 08/17/17 11:00 08/18/17 12:10 Novolog Vial Sliding Scale - SQ 3 units TIDAC [facility] Administration Protocol Insulin Aspart 1 vial 08/17/17 22:00 08/17/17 22:58 Novolog Vial Sliding Scale - SQ 4 units HS [facility] Administration Protocol Insulin Detemir 10 units 08/15/17 22:00 08/17/17 22:56 Levemir Vial SQ 10 units HS [facility] Administration Lisinopril 5 mg 08/17/17 10:00 08/18/17 09:11 Prinivil PO 5 mg DAILY [facility] Administration Lorazepam 1 mg 08/15/17 20:27 08/17/17 14:39 Ativan Injection - IVPUSH 1 mg Q6H PRN Administration ANXIETY Methadone HCl 30 mg 08/16/17 08:00 Dolophine - PO Q12H [facility] Multivit/Folic Acid/Iron 1 tab 08/16/17 10:00 08/18/17 09:34 Vitamins (Sjr) - PO 1 tab DAILY [facility] Administration Quetiapine Fumarate 25 mg 08/17/17 22:18 Seroquel - PO TID PRN AGITATION Ranolazine 500 mg 08/16/17 10:00 08/18/17 09:11 Ranexa - PO 500 mg DAILY [facility] Administration Thiamine HCl 100 mg 08/16/17 22:00 08/17/17 22:56 Vitamin B1 - PO 100 mg HS [facility] Administration AP: DKA Brittle DM ADEEL: Normal Creatinine now ETOH use BGM Q ACHS Monitor electrolytes Electrolyte replacement as necessary Levemir 12 units daily Increase Novolog SS coverage QACHS Teach pt's to monitor glucose and inject Insulin as he will need to go home on Insulin in view of recurrent DKA. Discussed with RN. Admitted on 11.08.16 with DKA also. Further management as per medical team.
--- NOTE | 2017-08-18 14:07 | CON.PSY ---
Psychiatry Consult Chief Complaint: 66 year old Male with HIV, HTn. Seozure Disorder. Patient seen for acute agiation and AMS. Symptoms: reports: Aggressivity, Impulsivity, Disorganized/Disruptive Thoughts - Previous Psychiatric Treatment Outpatient: None Inpatient: None - Previous Substance Abuse Treatment Outpatient: None - Reason for Previous Treatment Reason for Previous Treatment: Alcohol Abuse, Heroin or Other Narcotics - Current Medications Current Medications: Active Medications Aspirin (Ecotrin -) 81 mg PO DAILY [facility] Last Admin: 08/18/17 09:11 Dose: 81 mg Heparin Sodium (Porcine) (Heparin -) 5,000 unit SQ TID [facility] Last Admin: 08/18/17 05:52 Dose: 5,000 unit Hydrochlorothiazide (Hctz -) 12.5 mg PO DAILY [facility] Last Admin: 08/18/17 09:11 Dose: 12.5 mg Insulin Aspart (Novolog Vial Sliding Scale -) 1 vial SQ TIDAC [facility] PRN Reason: Protocol Last Admin: 08/18/17 12:10 Dose: 3 units Insulin Aspart (Novolog Vial Sliding Scale -) 1 vial SQ HS [facility] PRN Reason: Protocol Last Admin: 08/17/17 22:58 Dose: 4 units Insulin Detemir (Levemir Vial) 10 units SQ HS [facility] Last Admin: 08/17/17 22:56 Dose: 10 units Lisinopril (Prinivil) 5 mg PO DAILY [facility] Last Admin: 08/18/17 09:11 Dose: 5 mg Lorazepam (Ativan Injection -) 1 mg IVPUSH Q6H PRN PRN Reason: ANXIETY Last Admin: 08/17/17 14:39 Dose: 1 mg Methadone HCl (Dolophine -) 30 mg PO Q12H [facility] Olanzapine (Zyprexa -) 5 mg PO [facility] Multivit/Folic Acid/Iron ( Vitamins (Sjr) -) 1 tab PO DAILY [facility] Last Admin: 08/18/17 09:34 Dose: 1 tab Ranolazine (Ranexa -) 500 mg PO DAILY [facility] Last Admin: 08/18/17 09:11 Dose: 500 mg Thiamine HCl (Vitamin B1 -) 100 mg PO HS [facility] Last Admin: 08/17/17 22:56 Dose: 100 mg - Allergies Allergies: Allergies Allergy/AdvReac Type Severity Reaction Status Date / Time No Known Drug Allergies Allergy Verified 08/13/17 06:55 pollen and dust Allergy Mild Itching Uncoded 08/13/17 06:55 weeds Allergy Mild Uncoded 08/13/17 06:55 - Current Living Status Usual Living Arrangement: With Significant Other - Current Mental Status Evaluation Appearance: Disheveled Attitude: Guarded - Affect Affect: Constrictive Appropriateness: Not Appropriate - Mood Mood: Irritable - Speech/Language Expressive: Delayed - Psychomotor Activity Psychomotor Activity: Slowed - Thought Process Thought Process: Circumstantial - Thought Content Hallucinations: Absent Delusions: Absent - Self Perception Self Perception: No Impairment - Cognition Attention: Diminished Orientation: Time Memory, Immediate Recall: Impaired Memory, Short Term: 2/3 Memory, Remote with Promptin/3 - Concentration Serial Sevens Intact: No Simple Calculations Intact: No - Abstraction Proverb Interpretation: Impaired Judgement: Moderately Impaired - Insight Insight: Impaired - Impulse Control Impulse Control: Moderately Impaired - Suicidal Ideation Suicidal Ideation: No - Homicidal Ideation Homicidal Ideation: No Assessment/Plan 1) d/c seroquel 2) Zyprexa 5mg po hs for aggressive behaviour.
[2017-08-18] MEDS ORDERED: INSULIN DETEMIR 100 UNITS/ML MDV SQ SCH (22:00)
--- NOTE | 2017-08-18 22:38 | PN ---
Progress Note, Physician - Current Medication List Current Medications: Active Medications Aspirin (Ecotrin -) 81 mg PO DAILY [facility] Last Admin: 08/18/17 09:11 Dose: 81 mg Heparin Sodium (Porcine) (Heparin -) 5,000 unit SQ TID [facility] Last Admin: 08/18/17 14:28 Dose: 5,000 unit Hydrochlorothiazide (Hctz -) 12.5 mg PO DAILY [facility] Last Admin: 08/18/17 09:11 Dose: 12.5 mg Insulin Aspart (Novolog Vial Sliding Scale -) 1 vial SQ HS [facility] PRN Reason: Protocol Last Admin: 08/17/17 22:58 Dose: 4 units Insulin Aspart (Novolog Vial Sliding Scale -) 1 vial SQ TIDAC [facility] PRN Reason: Protocol Last Admin: 08/18/17 17:30 Dose: 6 units Insulin Detemir (Levemir Vial) 12 units SQ HS [facility] Lisinopril (Prinivil) 5 mg PO DAILY [facility] Last Admin: 08/18/17 09:11 Dose: 5 mg Methadone HCl (Dolophine -) 30 mg PO Q12H [facility] Olanzapine (Zyprexa -) 5 mg PO HS [facility] Multivit/Folic Acid/Iron ( Vitamins (Sjr) -) 1 tab PO DAILY [facility] Last Admin: 08/18/17 09:34 Dose: 1 tab Ranolazine (Ranexa -) 500 mg PO DAILY [facility] Last Admin: 08/18/17 09:11 Dose: 500 mg Thiamine HCl (Vitamin B1 -) 100 mg PO HS [facility] Last Admin: 08/17/17 22:56 Dose: 100 mg - Objective Vital Signs: Vital Signs Temperature 98.3 F 08/18/17 17:17 Pulse Rate 107 H 08/18/17 17:17 Respiratory Rate 20 08/18/17 17:17 Blood Pressure 162/88 08/18/17 17:17 O2 Sat by Pulse Oximetry (%) 98 08/17/17 09:00 Labs: CBC, BMP 08/17/17 06:00 08/17/17 06:00 Problem List - Problems (1) DKA (diabetic ketoacidosis) Code(s): E13.10 - OTH DIABETES MELLITUS WITH KETOACIDOSIS WITHOUT COMA Qualifiers: Diabetes mellitus type: due to underlying condition Diabetes mellitus complication detail: with coma Qualified Code(s): E08.11 - Diabetes mellitus due to underlying condition with ketoacidosis with coma (2) HTN (hypertension) Code(s): I10 - ESSENTIAL (PRIMARY) HYPERTENSION (3) Substance abuse Code(s): F19.10 - OTHER PSYCHOACTIVE SUBSTANCE ABUSE, UNCOMPLICATED (4) HIV (human immunodeficiency virus infection) Code(s): Z21 - ASYMPTOMATIC HUMAN IMMUNODEFICIENCY VIRUS INFECTION STATUS
[2017-08-18] MEDS: THIAMINE HCL 100 MG TABLET (FP) PO SCH (23:17)
[2017-08-18] MEDS: OLANZapine 5 MG TABLET PO SCH (23:17)
[2017-08-19] MEDS: INSULIN SLIDING SCALE (NOVOLOG) 1 VIAL SQ SCH ×4 (07:04→21:51)
[2017-08-19] MEDS: HEPARIN NA (PORCINE) 5,000 UNITS/ML 1ML VIAL SQ SCH ×3 (07:04→21:29)
[2017-08-19] MEDS ORDERED: PT OWN MED DRAWER 7, Y5N ONE (07:13)
[2017-08-19] MEDS: RANOLAZINE E.R. 500 MG TABLET (FP) PO SCH (10:02)
[2017-08-19] MEDS: LISINOPRIL 5 MG TABLET (FP) PO SCH (10:03)
[2017-08-19] MEDS: HYDROCHLOROTHIAZIDE 12.5 MG CAPSULE (FP) PO SCH (10:03)
[2017-08-19] MEDS: ASPIRIN COATED 81 MG TABLET.EC PO SCH (10:03)
[2017-08-19] MEDS: PRENATAL VITAMINS W/ FOLIC ACID TABLET (FP) PO SCH (10:04)
--- NOTE | 2017-08-19 12:25 | PN ---
Progress Note (short form) - Note Progress Note: Awake, alert Was drowsy in the morning probably from meds, so didn't eat breakfast FS now 74, got Novolog 5 units in morning apetite good. BGM 200 to 300 no Hypos Vital Signs Period Temp Pulse Resp BP Sys/Foley Pulse Ox Last 24 Hr 97.5 F-98.3 F 70-107 16-20 120-185/82-104 PE: Awake , alert, oriented to person, place, Neck: Supple Lungs: CTA CVS: S1S2 Abd: Benign EXt: No edema CMP Sodium 140 mmol/L (136-145) 08/17/17 06:00 Potassium 3.6 mmol/L (3.5-5.1) 08/17/17 06:00 Chloride 103 mmol/L (98-107) 08/17/17 06:00 Carbon Dioxide 23 mmol/L (21-32) 08/17/17 06:00 Anion Gap 14 (8-16) 08/17/17 06:00 BUN 9 mg/dL (7-18) 08/17/17 06:00 Creatinine 0.8 mg/dL (0.7-1.3) 08/17/17 06:00 Creat Clearance w eGFR > 60 (>60) 08/17/17 06:00 POC Glucometer 270 UNITS (80-120) 08/19/17 07:02 Random Glucose 78 mg/dL (74-106) D 08/17/17 06:00 Lactic Acid 2.1 mmol/L (0.4-2.0) H* 08/13/17 11:55 Calcium 8.8 mg/dL (8.5-10.1) 08/17/17 06:00 Phosphorus 1.6 mg/dL (2.5-4.9) L 08/15/17 05:05 Magnesium 2.2 mg/dL (1.8-2.4) D 08/15/17 05:05 Total Bilirubin 1.3 mg/dL (0.2-1.0) H 08/17/17 06:00 AST 31 U/L (15-37) 08/17/17 06:00 ALT 19 U/L (12-78) 08/17/17 06:00 Alkaline Phosphatase 91 U/L (45-117) 08/17/17 06:00 Ammonia 25.38 umol/L (11-32) 08/15/17 05:05 Creatine Kinase 91 IU/L (39-308) 08/13/17 07:40 Troponin I < 0.02 ng/ml (0.00-0.05) 08/13/17 07:40 Total Protein 7.4 g/dl (6.4-8.2) 08/17/17 06:00 Albumin 3.4 g/dl (3.4-5.0) 08/17/17 06:00 Vitamin B12 999 pg/ml (180-914) H 08/15/17 05:05 TSH 0.79 uIU/ml (0.358-3.74) D 08/15/17 05:05 Current Medications Generic Name Dose Route Start Last Admin Trade Name Dante PRN Reason Stop Dose Admin Aspirin 81 mg 08/16/17 10:00 08/19/17 10:03 Ecotrin - PO 81 mg DAILY [facility] Administration Heparin Sodium (Porcine) 5,000 unit 08/15/17 22:00 08/19/17 07:04 Heparin - SQ 5,000 unit TID [facility] Administration Hydrochlorothiazide 12.5 mg 08/16/17 10:00 08/19/17 10:03 Hctz - PO 12.5 mg DAILY [facility] Administration Insulin Aspart 1 vial 08/17/17 22:00 08/18/17 23:22 Novolog Vial Sliding Scale - SQ 5 units HS [facility] Administration Protocol Insulin Aspart 1 vial 08/18/17 16:30 08/19/17 12:12 Novolog Vial Sliding Scale - SQ Not Given TIDAC [facility] Protocol Insulin Detemir 12 units 08/18/17 22:00 08/18/17 23:21 Levemir Vial SQ 12 unit HS [facility] Administration Lisinopril 5 mg 08/17/17 10:00 08/19/17 10:03 Prinivil PO 5 mg DAILY [facility] Administration Methadone HCl 30 mg 08/16/17 08:00 Dolophine - PO Q12H [facility] Olanzapine 5 mg 08/18/17 22:00 08/18/17 23:17 Zyprexa - PO 5 mg HS [facility] Administration Multivit/Folic Acid/Iron 1 tab 08/16/17 10:00 08/19/17 10:04 Vitamins (Sjr) - PO 1 tab DAILY [facility] Administration Ranolazine 500 mg 08/16/17 10:00 08/19/17 10:02 Ranexa - PO 500 mg DAILY [facility] Administration Thiamine HCl 100 mg 08/16/17 22:00 08/18/17 23:17 Vitamin B1 - PO 100 mg HS [facility] Administration AP: DKA Brittle DM ADEEL: Normal Creatinine now ETOH use BGM Q ACHS Monitor electrolytes Electrolyte replacement as necessary Increase Levemir 14 units daily Novolog SS coverage QACHS Novolog to be given only once food is in the room and pt is ready to eat. Discussed with RN to inform night RN about the same. Teach pt's to monitor glucose and inject Insulin as he will need to go home on Insulin in view of recurrent DKA. Discussed with RN. Admitted on 11.08.16 with DKA also. Further management as per medical team.
[2017-08-19] MEDS ORDERED: amLODIPine BESYLATE 2.5 MG TABLET (FP) PO ONE (16:45)
[2017-08-19] MEDS: OLANZapine 5 MG TABLET PO SCH (21:29)
[2017-08-19] MEDS: THIAMINE HCL 100 MG TABLET (FP) PO SCH (21:29)
[2017-08-19] MEDS: INSULIN DETEMIR 100 UNITS/ML MDV SQ SCH (21:51)
--- NOTE | 2017-08-19 23:00 | PN ---
Progress Note, Physician History of Present Illness: Pt lethargic but arousable and unable to follow commands - Current Medication List Current Medications: Active Medications Aspirin (Ecotrin -) 81 mg PO DAILY [facility] Last Admin: 08/19/17 10:03 Dose: 81 mg Heparin Sodium (Porcine) (Heparin -) 5,000 unit SQ TID [facility] Last Admin: 08/19/17 21:29 Dose: 5,000 unit Hydrochlorothiazide (Hctz -) 12.5 mg PO DAILY [facility] Last Admin: 08/19/17 10:03 Dose: 12.5 mg Insulin Aspart (Novolog Vial Sliding Scale -) 1 vial SQ HS [facility] PRN Reason: Protocol Last Admin: 08/19/17 21:51 Dose: 3 units Insulin Aspart (Novolog Vial Sliding Scale -) 1 vial SQ TIDAC [facility] PRN Reason: Protocol Last Admin: 08/19/17 16:55 Dose: Not Given Insulin Detemir (Levemir Vial) 14 units SQ [facility] Last Admin: 08/19/17 21:51 Dose: 14 units Lisinopril (Prinivil) 5 mg PO DAILY [facility] Last Admin: 08/19/17 10:03 Dose: 5 mg Methadone HCl (Dolophine -) 30 mg PO Q12H [facility] Olanzapine (Zyprexa -) 5 mg PO [facility] Last Admin: 08/19/17 21:29 Dose: 5 mg Multivit/Folic Acid/Iron ( Vitamins (Sjr) -) 1 tab PO DAILY [facility] Last Admin: 08/19/17 10:04 Dose: 1 tab Ranolazine (Ranexa -) 500 mg PO DAILY [facility] Last Admin: 08/19/17 10:02 Dose: 500 mg Thiamine HCl (Vitamin B1 -) 100 mg PO [facility] Last Admin: 08/19/17 21:29 Dose: 100 mg - Objective Vital Signs: Vital Signs Temperature 98.8 F 08/19/17 17:12 Pulse Rate 87 08/19/17 17:12 Respiratory Rate 18 08/19/17 17:12 Blood Pressure 162/106 08/19/17 17:12 O2 Sat by Pulse Oximetry (%) 98 08/17/17 09:00 Constitutional: Yes: No Distress HENT: Yes: WNL Neck: Yes: WNL, Supple Cardiovascular: Yes: WNL, Regular Rate and Rhythm Respiratory: Yes: WNL, Regular, CTA Bilaterally Gastrointestinal: Yes: WNL, Normal Bowel Sounds, Soft Neurological: Yes: Other (Nonfocal) Labs: CBC, BMP 08/17/17 06:00 08/17/17 06:00 Problem List - Problems (1) Lethargy Assessment/Plan: Check ct scan head Reconsult neuro Methadone has not been given Check labs Code(s): R53.83 - OTHER FATIGUE (2) DKA (diabetic ketoacidosis) Assessment/Plan: Cont sliding scale w/ coverge Cont levemir Will be difficult teaching pt to use insulin May benefit from STR PT eval Code(s): E13.10 - OTH DIABETES MELLITUS WITH KETOACIDOSIS WITHOUT COMA Qualifiers: Diabetes mellitus type: due to underlying condition Diabetes mellitus complication detail: with coma Qualified Code(s): E08.11 - Diabetes mellitus due to underlying condition with ketoacidosis with coma (3) HTN (hypertension) Assessment/Plan: Cont asa/hctz BP elevated Add norvasc Code(s): I10 - ESSENTIAL (PRIMARY) HYPERTENSION (4) Substance abuse Assessment/Plan: Pt has not been receiving methadone Code(s): F19.10 - OTHER PSYCHOACTIVE SUBSTANCE ABUSE, UNCOMPLICATED (5) HIV (human immunodeficiency virus infection) Code(s): Z21 - ASYMPTOMATIC HUMAN IMMUNODEFICIENCY VIRUS INFECTION STATUS
[2017-08-20] MEDS: HEPARIN NA (PORCINE) 5,000 UNITS/ML 1ML VIAL SQ SCH ×3 (07:01→21:35)
[2017-08-20 08:35] LABS: BASO % 0.7 % (0-2.0); EOS % 0.1 % (0-4.5); HEMATOCRIT 43.8 % (35.4-49); HEMOGLOBIN 14.2 GM/dL (11.7-16.9); LYMPH % 24.5 % (8-40); MCH 29.1 pg (25.7-33.7); MCHC 32.3 g/dl (32.0-35.9); MEAN CELL VOLUME 90.2 fl (80-96); MEAN PLT VOLUME 9.8 fl (7.5-11.1); MONO % 10.8 % (3.8-10.2); NEUT % 63.9 % (42.8-82.8); PLATELET COUNT 206 K/MM3 (134-434); RBC 4.86 M/mm3 (4.00-5.60); WHITE BLOOD COUNT 6.8 K/mm3 (4.0-10.0)
[2017-08-20 09:04] LABS: ALBUMIN 3.6 g/dl (3.4-5.0); ANION GAP 15 (8-16); BLOOD UREA NITROGEN 11 mg/dL (7-18); CALCIUM 9.5 mg/dL (8.5-10.1); CHLORIDE 102 mmol/L (98-107); CO2 24 mmol/L (21-32); CREATININE 0.9 mg/dL (0.7-1.3); GLUCOSE,RANDOM 185 mg/dL (74-106); POTASSIUM 3.5 mmol/L (3.5-5.1); SGPT/ALT 25 U/L (12-78); SODIUM 141 mmol/L (136-145)
[2017-08-20 09:14] LABS: ALK PHOS 96 U/L (45-117); BILIRUBIN,TOTAL 0.6 mg/dL (0.2-1.0); SGOT/AST 29 U/L (15-37); TOT PROT 8.4 g/dl (6.4-8.2)
--- NOTE | 2017-08-20 09:42 | PN ---
Progress Note (short form) - Note Progress Note: Awake, drowsy, responds to questions apetite good. BGM better yesterday no Hypos Vital Signs Period Temp Pulse Resp BP Sys/Foley Pulse Ox Last 24 Hr 97.3 F-98.9 F 71-97 16-20 160-183/101-115 98 PE: Awake , drowsy, Neck: Supple Lungs: CTA CVS: S1S2 Abd: Benign EXt: No edema CMP Sodium 141 mmol/L (136-145) 08/20/17 07:00 Potassium 3.5 mmol/L (3.5-5.1) 08/20/17 07:00 Chloride 102 mmol/L (98-107) 08/20/17 07:00 Carbon Dioxide 24 mmol/L (21-32) 08/20/17 07:00 Anion Gap 15 (8-16) 08/20/17 07:00 BUN 11 mg/dL (7-18) D 08/20/17 07:00 Creatinine 0.9 mg/dL (0.7-1.3) 08/20/17 07:00 Creat Clearance w eGFR > 60 (>60) 08/20/17 07:00 POC Glucometer 178 UNITS (80-120) 08/20/17 06:59 Random Glucose 185 mg/dL (74-106) H D 08/20/17 07:00 Lactic Acid 2.1 mmol/L (0.4-2.0) H* 08/13/17 11:55 Calcium 9.5 mg/dL (8.5-10.1) 08/20/17 07:00 Phosphorus 1.6 mg/dL (2.5-4.9) L 08/15/17 05:05 Magnesium 2.2 mg/dL (1.8-2.4) D 08/15/17 05:05 Total Bilirubin 0.6 mg/dL (0.2-1.0) D 08/20/17 07:00 AST 29 U/L (15-37) 08/20/17 07:00 ALT 25 U/L (12-78) D 08/20/17 07:00 Alkaline Phosphatase 96 U/L (45-117) 08/20/17 07:00 Ammonia 25.38 umol/L (11-32) 08/15/17 05:05 Creatine Kinase 91 IU/L (39-308) 08/13/17 07:40 Troponin I < 0.02 ng/ml (0.00-0.05) 08/13/17 07:40 Total Protein 8.4 g/dl (6.4-8.2) H 08/20/17 07:00 Albumin 3.6 g/dl (3.4-5.0) 08/20/17 07:00 Vitamin B12 999 pg/ml (180-914) H 08/15/17 05:05 TSH 0.79 uIU/ml (0.358-3.74) D 08/15/17 05:05 Current Medications Generic Name Dose Route Start Last Admin Trade Name Freq PRN Reason Stop Dose Admin Amlodipine Besylate 5 mg 08/20/17 10:00 Norvasc - PO DAILY [facility] Aspirin 81 mg 08/16/17 10:00 08/19/17 10:03 Ecotrin - PO 81 mg DAILY [facility] Administration Folic Acid 1 mg 08/20/17 10:00 Folic Acid - PO DAILY [facility] Heparin Sodium (Porcine) 5,000 unit 08/15/17 22:00 08/20/17 07:01 Heparin - SQ 5,000 unit TID [facility] Administration Hydrochlorothiazide 12.5 mg 08/16/17 10:00 08/19/17 10:03 Hctz - PO 12.5 mg DAILY [facility] Administration Insulin Aspart 1 vial 08/17/17 22:00 08/19/17 21:51 Novolog Vial Sliding Scale - SQ 3 units HS [facility] Administration Protocol Insulin Aspart 1 vial 08/19/17 12:26 08/19/17 16:55 Novolog Vial Sliding Scale - SQ Not Given TIDAC [facility] Protocol Insulin Detemir 14 units 08/19/17 22:00 08/19/17 21:51 Levemir Vial SQ 14 units HS [facility] Administration Lisinopril 5 mg 08/17/17 10:00 08/19/17 10:03 Prinivil PO 5 mg DAILY [facility] Administration Methadone HCl 30 mg 08/16/17 08:00 Dolophine - PO Q12H [facility] Olanzapine 5 mg 08/18/17 22:00 08/19/17 21:29 Zyprexa - PO 5 mg HS [facility] Administration Multivit/Folic Acid/Iron 1 tab 08/16/17 10:00 01/07/18 10:04 Vitamins (Sjr) - PO 1 tab DAILY [facility] Administration Ranolazine 500 mg 08/16/17 10:00 08/19/17 10:02 Ranexa - PO 500 mg DAILY [facility] Administration Thiamine HCl 100 mg 08/16/17 22:00 08/19/17 21:29 Vitamin B1 - PO 100 mg HS [facility] Administration AP: DKA Brittle DM ADEEL: Normal Creatinine now ETOH use BGM Q ACHS Monitor electrolytes Electrolyte replacement as necessary Continue Levemir 14 units daily Novolog SS coverage QACHS Novolog to be given only once food is in the room and pt is ready to eat. Discussed with RN to inform night RN about the same. Teach pt's to monitor glucose and inject Insulin as he will need to go home on Insulin in view of recurrent DKA. Discussed with RN. Admitted on 11.08.16 with DKA also. Further management as per medical team.
[2017-08-20] MEDS ORDERED: PT OWN MED DRAWER 7, Y5N ONE ×2 (09:50→21:30)
[2017-08-20] MEDS ORDERED: INSULIN (NOVOLOG) ASPART 100 UNITS/ML 10ML VIAL ONE ×3 (09:50→16:54)
[2017-08-20] MEDS: INSULIN SLIDING SCALE (NOVOLOG) 1 VIAL SQ SCH ×5 (09:54→22:08)
[2017-08-20] MEDS: ASPIRIN COATED 81 MG TABLET.EC PO SCH (09:54)
[2017-08-20] MEDS: LISINOPRIL 5 MG TABLET (FP) PO SCH (09:54)
[2017-08-20] MEDS: FOLIC ACID 1 MG TABLET (FP) PO SCH (09:54)
[2017-08-20] MEDS: amLODIPine BESYLATE 5 MG TABLET (FP) PO SCH (09:54)
[2017-08-20] MEDS: HYDROCHLOROTHIAZIDE 12.5 MG CAPSULE (FP) PO SCH (09:54)
[2017-08-20] MEDS: PRENATAL VITAMINS W/ FOLIC ACID TABLET (FP) PO SCH (09:54)
[2017-08-20] MEDS: RANOLAZINE E.R. 500 MG TABLET (FP) PO SCH (09:54)
--- NOTE | 2017-08-20 11:25 | PN ---
Progress Note (short form) - Note Progress Note: NEUROLOGY FOLLOW-UP: Events and repeat CT scans reviewed. Pt. examined. Unclear from the medication records if Pt was restarted on high-dose IV thiamine after my discussion with the ICU resident on 08/15/17. Pt transferred to the floor soon thereafter. Records indicate he has been on 100 mg thiamine, PO, since 08/16/17. Dr. Cerrato's note read and appreciated. Meds for agitation changed from quetiapine to Olanzapine (5 mg) on 08/18/17. On 08/19/17 Pt noted to be lethargic by RN's and Dr. Ruiz. Now better. CT of head (reviewed) performed on 08/20/17 shows mod. diffuse atrophy. Unchanged from the admission study. EXAM: Awake, alert, calm, cooperative. In hand mittens but no IV or NG lines. No head trauma. Ox "A friends house," but does recall [facility] for about 1 1/2 mins after being told. Full EOM's and wilson Moves all 4's well. Normal reflexes. Feels touch, both hands and feet. IMP: Moderate, B/L cerebral dysfunction, probably on a multifactorial basis. Transient lethargy due to toxic-metabolic encephalopathy (Initiation of Olanzapine). Now improved SUGGEST: Continue vitamins and nutritional support. Mobilize OO Bed and ambulate with PT Consider ID consult to eval possible HIV or related encephalopathy. Thank you very much, Riki Murdock MD
--- NOTE | 2017-08-20 11:53 | CON.CARD ---
Consult Consult Specialty:: Cardiology Referred by:: Dr. Hernandez Reason for Consultation:: HTN - History of Present Illness Chief Complaint: AMS History of Present Illness: 66 year old man with a h/o HTN, DMII, HIV, HCV, non-adherence with medications and f/up, prior DKA, admitted with seizure, AMS, DKA, noted to have severe uncontrolled HTN as well. Pt seen and examined today in nad. opens eyes but does not follow commands. No reported overnight events or new complaints. No reported chest pain, sob, palpitations, pnd, orthopnea, or LE edema. - History Source History Provided By: Patient, Medical Record Limitations to Obtaining History: Unresponsive - Past Medical History [employer]: Yes: Other (PI) Cardio/Vascular: Yes: HTN, Hyperlipdemia Hepatobiliary: Yes: Hepatitis C Infectious Disease: Yes: HIV Psych: Yes: Addictions Endocrine: Yes: Diabetes Mellitus - Alcohol/Substance Use Hx Alcohol Use: No - Smoking History Smoking history: Unknown if ever smoked Have you smoked in the past 12 months: No Aproximately how many cigarettes per day: 1 - Social History Usual Living Arrangement: With Significant Other ADL: Independent History of Recent Travel: No Home Medications - Allergies Allergies/Adverse Reactions: Allergies Allergy/AdvReac Type Severity Reaction Status Date / Time No Known Drug Allergies Allergy Verified 08/13/17 06:55 pollen and dust Allergy Mild Itching Uncoded 08/13/17 06:55 weeds Allergy Mild Uncoded 08/13/17 06:55 - Home Medications Home Medications: Ambulatory Orders ASA - 81 mg PO DAILY 11/08/16 Hctz - 12.5 mg PO DAILY 11/08/16 Metformin Xr 100 mg PO 11/08/16 Novolog Flexpen SQ ACHS 11/08/16 Ranexa 500 mg PO DAILY 11/08/16 Methadone [Dolophine -] 60 mg PO DAILY 08/13/17 Family Disease History - Family Disease History Family Disease History: Diabetes: Mother (dec'd age 84 from dm), Heart Disease: Father (dec'd age 50s hx mi), Mother, Brother (8 brothers, 1 dec'd age 60s from ca), Other: Grandparent (all dec'd natural causes), Father, Brother, Sister (3 all a&w), Son (has 4 a&w), Daughter (2 a&w) Review of Systems - Review of Systems Constitutional: reports: Lethargy, Malaise. denies: No Symptoms, Chills, Diaphoresis, Fever, Loss of Appetite, Night Sweats, Unintentional Wgt. Loss, Weakness, Other Eyes: denies: No Symptoms, Blind Spots, Blurred Vision, Double Vision, Eye Pain , Floaters, Photophobia, Recent Change in Vision, Other HENT: denies: No Symptoms, Difficult Swallowing, Ear Discharge, Ear Pain, Epistaxis, Gingival Bleeding, Hearing Loss, Mouth Swelling, Nasal Congestion, Ocular Prosthesis, Throat Pain, Toothache, Ringing in Ears, Other Neck: denies: No Symptoms, Decreased ROM, Lumps, Pain on Movement, Stiffness, Swollen Glands, Tenderness, Other Cardiovascular: denies: No Symptoms, Chest Pain, Edema, Palpitations, Shortness of Breath, Other Respiratory: denies: No Symptoms, Cough, Exercise Intolerance, Hemoptysis, Orthopnea, PND, Snoring, SOB, SOB on Exertion, Wheezing, Other Gastrointestinal: reports: Abdominal Pain. denies: No Symptoms, Bloating, Constipation, Diarrhea, Dysphagia, Indigestion, Melena, Nausea, Rectal Bleeding , Vomiting, Vomiting Blood, Other Genitourinary: denies: No Symptoms, Burning, Discharge, Dysuria, Flank Pain, Frequency, Hematuria, Incontinence, Lesions, Menses, Pain, Testicular Mass, Testicular Pain, Testicular Swelling, Urgency, Vaginal Bleeding, Other Breasts: denies: No Symptoms Reported, See HPI, Breast Implants, Discharge from Nipple, Lumps, Pain, Skin Changes, Other Musculoskeletal: denies: No Symptoms, Back Pain, Crepitus, Decreased ROM, Extremity Pain, Joint Pain, Joint Swelling, Muscle Pain, Muscle Cramps, Muscle Weakness, Other Integumentary: denies: No Symptoms, Blister, Bruising, Change in Color, Eczema, Erythema, Incision, Lesions, Lump, Pallor, Pruritis, Rash, Wound, Other Neurological: reports: Change in LOC, Confusion, Seizure, Weakness. denies: No Symptoms, Change in Speech, Dizziness, Headache, Incoordination, Numbness, Parasthesia, Pre-Existing Deficit, Syncope, Tremors, Unsteady Gait, Other Endocrine: denies: No Symptoms, Excessive Sweating, Flushing, Increased Hunger, Increased Thirst, Intolerance to Cold, Intolerance to Heat, Unexplained Weight Gain, Unexplained Weight Loss, Other Hematology/Lymphatic: denies: No Symptoms, Easily Bruised, Excessive Bleeding, Swollen Glands, Other Psychiatric: denies: No Symptoms, Altered Sleep Pattern, Anxiety, Depression, Hallucinations, Panic, Paranoia, Suicidal, Other - Risk Factors Known Risk Factors: Yes: Hypercholesterolemia, Hypertension Vital Signs: Vital Signs Temperature 97.3 F L 08/20/17 07:39 Pulse Rate 73 08/20/17 07:39 Respiratory Rate 18 08/20/17 07:39 Blood Pressure 183/115 08/20/17 07:39 O2 Sat by Pulse Oximetry (%) 98 08/19/17 21:00 Constitutional: Yes: No Distress Eyes: Yes: WNL, Conjunctiva Clear, EOM Intact, PERRL HENT: Yes: WNL, Atraumatic, Normocephalic Neck: Yes: WNL, Supple, Trachea Midline Respiratory: Yes: WNL, Regular, CTA Bilaterally. No: Rales, Rhonchi, Wheezes Gastrointestinal: Yes: WNL, Normal Bowel Sounds, Soft. No: Distention, Tenderness Renal/: Yes: WNL Cardiovascular: Yes: Regular Rate and Rhythm. No: Bradycardia, Tachycardia, Pulse Irregular, Gallop, Rub, Varicosities JVD: No Carotid Bruit: No PMI: Non-Displaced Heart Sounds: Yes: S1, S2. No: Split S2, S3, S4, Clicks, Gallop, Rub, Bruit Murmur: No: Systolic Murmur, Diastolic Murmur Musculoskeletal: Yes: WNL Extremities: Yes: WNL Edema: No Peripheral Pulses WNL: Yes Peripheral Pulses: 2+ Left Doralis Pedis, 2+ Right Dorsalis Pedis Integumentary: Yes: WNL Neurological: No: Alert, Oriented Psychiatric: No: Alert, Oriented - Other Data Labs, Other Data: CBC, BMP 08/20/17 07:00 08/20/17 07:00 ekg-reviewed Imaging - Results Chest X-ray: Report Reviewed, Image Reviewed EKG: Report Reviewed, Image Reviewed Other: Report Reviewed, Image Reviewed Assessment/Plan 66 year old man with a h/o HTN, DMII, HIV, HCV, non-adherence with medications and f/up, prior DKA, admitted with seizure, AMS, DKA, noted to have severe uncontrolled HTN as well. HTN-uncontrolled -resume home medical regimen HCTZ, norvasc, Lisinopril then re-evaluate and adjust meds as needed -if not tolerating po meds may need to use IV until tolerates -need to clarify why on Ranexa AMS-due to DKA -as per PMD/endo
[2017-08-20] MEDS ORDERED: METHADONE HCL 10 MG TABLET PO ONE (15:31)
--- NOTE | 2017-08-20 15:35 | PN ---
[facility] Progress Note (SOAP) Subjective: pateint remains lethargic and weak, knows name, hospital and year Objective: 08/20/17 15:33 Vital Signs - 24 hr 08/19/17 08/19/17 08/20/17 17:12 21:00 07:39 Temperature 98.8 F 98.9 F 97.3 F L Pulse Rate 87 97 H 73 Respiratory 18 20 18 Rate Blood Pressure 162/106 162/109 183/115 O2 Sat by Pulse 98 Oximetry (%) 08/20/17 10:00 Temperature 98.7 F Pulse Rate 110 H Respiratory 18 Rate Blood Pressure 161/105 O2 Sat by Pulse Oximetry (%) Laboratory Tests 08/13/17 08/13/17 08/13/17 07:01 07:15 07:15 WBC 14.6 H D RBC 4.25 D Hgb 12.3 D Hct 40.5 D MCV 95.3 MCH 29.0 MCHC 30.4 L RDW 15.6 Plt Count 185 MPV 10.2 D Neutrophils % 81.9 D Lymphocytes % 12.0 D Monocytes % 5.7 Eosinophils % 0.0 D Basophils % 0.4 VBG pH 6.99 L* POC VBG pCO2 35.3 L POC VBG pO2 66.1 H Mixed VBG HCO3 8.1 L* Sodium Potassium Chloride Carbon Dioxide Anion Gap BUN Creatinine Creat Clearance w eGFR POC Glucometer > 400 Random Glucose Lactic Acid Calcium Phosphorus Magnesium Total Bilirubin AST ALT Alkaline Phosphatase Ammonia Creatine Kinase Troponin I Total Protein Albumin Vitamin B12 TSH Urine Color Urine Appearance Urine pH Ur Specific [place] Urine Protein Urine Glucose (UA) Urine Ketones Urine Blood Urine Nitrite Urine Bilirubin Urine Urobilinogen Ur Leukocyte Esterase Urine WBC (Auto) Urine RBC (Auto) Urine Bacteria Granular Casts Urine Mucus Salicylates Opiates Screen Methadone Screen Acetaminophen Barbiturate Screen Phencyclidine Screen Ur Amphetamines Screen MDMA (Ecstasy) Screen Benzodiazepines Screen Cocaine Screen U Marijuana (THC) Screen Alcohol, Quantitative Acetone, Qual RPR Titer T.pallidum Ab (A) 08/13/17 08/13/17 08/13/17 07:15 07:15 07:40 WBC RBC Hgb Hct MCV MCH MCHC RDW Plt Count MPV Neutrophils % Lymphocytes % Monocytes % Eosinophils % Basophils % VBG pH POC VBG pCO2 POC VBG pO2 Mixed VBG HCO3 Sodium Potassium Chloride Carbon Dioxide Anion Gap BUN Creatinine Creat Clearance w eGFR POC Glucometer Random Glucose Lactic Acid 8.3 H* Calcium Phosphorus Magnesium Total Bilirubin AST ALT Alkaline Phosphatase Ammonia Creatine Kinase Troponin I < 0.02 D Total Protein Albumin Vitamin B12 TSH Urine Color Ltyellow Urine Appearance Slcloudy Urine pH 5.0 Ur Specific [place] 1.021 Urine Protein Negative Urine Glucose (UA) 3+ H Urine Ketones 2+ H Urine Blood 1+ H Urine Nitrite Negative Urine Bilirubin Negative Urine Urobilinogen Negative Ur Leukocyte Esterase Negative Urine WBC (Auto) 2 Urine RBC (Auto) 3 Urine Bacteria Rare Granular Casts 26 Urine Mucus Rare Salicylates Opiates Screen Methadone Screen Acetaminophen Barbiturate Screen Phencyclidine Screen Ur Amphetamines Screen MDMA (Ecstasy) Screen Benzodiazepines Screen Cocaine Screen U Marijuana (THC) Screen Alcohol, Quantitative Acetone, Qual RPR Titer T.pallidum Ab ([facility]) 08/13/17 08/13/17 08/13/17 07:40 08:17 08:17 WBC RBC Hgb Hct MCV MCH MCHC RDW Plt Count MPV Neutrophils % Lymphocytes % Monocytes % Eosinophils % Basophils % VBG pH POC VBG pCO2 POC VBG pO2 Mixed VBG HCO3 Sodium 131 L Potassium 5.3 H D Chloride 92 L D Carbon Dioxide 10 L D Anion Gap 29 H BUN 30 H D Creatinine 2.0 H D Creat Clearance w eGFR 33.49 POC Glucometer Random Glucose 715 H* D Lactic Acid Calcium 10.0 D Phosphorus 8.0 H D Magnesium 2.6 H D Total Bilirubin 0.9 D AST 22 D ALT 20 Alkaline Phosphatase 104 D Ammonia Creatine Kinase 91 Troponin I < 0.02 Total Protein 8.6 H D Albumin 4.2 D Vitamin B12 TSH Urine Color Urine Appearance Urine pH Ur Specific [place] Urine Protein Urine Glucose (UA) Urine Ketones Urine Blood Urine Nitrite Urine Bilirubin Urine Urobilinogen Ur Leukocyte Esterase Urine WBC (Auto) Urine RBC (Auto) Urine Bacteria Granular Casts Urine Mucus Salicylates 4.384 Opiates Screen Positive Methadone Screen Positive Acetaminophen 2.793 L Barbiturate Screen Negative Phencyclidine Screen Negative Ur Amphetamines Screen Negative MDMA (Ecstasy) Screen Negative Benzodiazepines Screen Negative Cocaine Screen Negative U Marijuana (THC) Screen Negative Alcohol, Quantitative < 5.0 Acetone, Qual RPR Titer T.pallidum Ab ([facility]) 08/13/17 08/13/17 08/13/17 09:00 09:40 10:29 WBC RBC Hgb Hct MCV MCH MCHC RDW Plt Count MPV Neutrophils % Lymphocytes % Monocytes % Eosinophils % Basophils % VBG pH POC VBG pCO2 POC VBG pO2 Mixed VBG HCO3 Sodium Potassium Chloride Carbon Dioxide Anion Gap BUN Creatinine Creat Clearance w eGFR POC Glucometer > 400 Random Glucose Lactic Acid 5.2 H* Calcium Phosphorus Magnesium Total Bilirubin AST ALT Alkaline Phosphatase Ammonia Creatine Kinase Troponin I Total Protein Albumin Vitamin B12 TSH Urine Color Urine Appearance Urine pH Ur Specific [place] Urine Protein Urine Glucose (UA) Urine Ketones Urine Blood Urine Nitrite Urine Bilirubin Urine Urobilinogen Ur Leukocyte Esterase Urine WBC (Auto) Urine RBC (Auto) Urine Bacteria Granular Casts Urine Mucus Salicylates Opiates Screen Methadone Screen Acetaminophen Barbiturate Screen Phencyclidine Screen Ur Amphetamines Screen MDMA (Ecstasy) Screen Benzodiazepines Screen Cocaine Screen U Marijuana (THC) Screen Alcohol, Quantitative Acetone, Qual Positive moderate 2+ RPR Titer T.pallidum Ab ([facility]) 08/13/17 08/13/17 08/13/17 11:35 11:55 11:55 WBC RBC Hgb Hct MCV MCH MCHC RDW Plt Count MPV Neutrophils % Lymphocytes % Monocytes % Eosinophils % Basophils % VBG pH POC VBG pCO2 POC VBG pO2 Mixed VBG HCO3 Sodium 141 Potassium 3.9 D Chloride 109 H D Carbon Dioxide 10 L Anion Gap 22 H BUN 29 H Creatinine 1.8 H Creat Clearance w eGFR POC Glucometer > 400 Random Glucose 484 H* D Lactic Acid 2.1 H* Calcium 7.9 L D Phosphorus Magnesium Total Bilirubin AST ALT Alkaline Phosphatase Ammonia Creatine Kinase Troponin I Total Protein Albumin Vitamin B12 TSH Urine Color Urine Appearance Urine pH Ur Specific [place] Urine Protein Urine Glucose (UA) Urine Ketones Urine Blood Urine Nitrite Urine Bilirubin Urine Urobilinogen Ur Leukocyte Esterase Urine WBC (Auto) Urine RBC (Auto) Urine Bacteria Granular Casts Urine Mucus Salicylates Opiates Screen Methadone Screen Acetaminophen Barbiturate Screen Phencyclidine Screen Ur Amphetamines Screen MDMA (Ecstasy) Screen Benzodiazepines Screen Cocaine Screen U Marijuana (THC) Screen Alcohol, Quantitative Acetone, Qual RPR Titer T.pallidum Ab ([facility]) 08/13/17 08/13/17 08/13/17 12:45 13:43 14:53 WBC RBC Hgb Hct MCV MCH MCHC RDW Plt Count MPV Neutrophils % Lymphocytes % Monocytes % Eosinophils % Basophils % VBG pH POC VBG pCO2 POC VBG pO2 Mixed VBG HCO3 Sodium Potassium Chloride Carbon Dioxide Anion Gap BUN Creatinine Creat Clearance w eGFR POC Glucometer > 400 > [phone] Random Glucose Lactic Acid Calcium Phosphorus Magnesium Total Bilirubin AST ALT Alkaline Phosphatase Ammonia Creatine Kinase Troponin I Total Protein Albumin Vitamin B12 TSH Urine Color Urine Appearance Urine pH Ur Specific [place] Urine Protein Urine Glucose (UA) Urine Ketones Urine Blood Urine Nitrite Urine Bilirubin Urine Urobilinogen Ur Leukocyte Esterase Urine WBC (Auto) Urine RBC (Auto) Urine Bacteria Granular Casts Urine Mucus Salicylates Opiates Screen Methadone Screen Acetaminophen Barbiturate Screen Phencyclidine Screen Ur Amphetamines Screen MDMA (Ecstasy) Screen Benzodiazepines Screen Cocaine Screen U Marijuana (THC) Screen Alcohol, Quantitative Acetone, Qual RPR Titer T.pallidum Ab ([facility]) 08/13/17 08/13/17 08/13/17 16:23 18:02 18:40 WBC RBC Hgb Hct MCV MCH MCHC RDW Plt Count MPV Neutrophils % Lymphocytes % Monocytes % Eosinophils % Basophils % VBG pH POC VBG pCO2 POC VBG pO2 Mixed VBG HCO3 Sodium 144 Potassium 3.7 Chloride 114 H Carbon Dioxide 22 D Anion Gap 8 BUN 25 H Creatinine 1.5 H Creat Clearance w eGFR 46.68 POC Glucometer 322.88789 [phone] Random Glucose 190 H D Lactic Acid Calcium 8.0 L Phosphorus Magnesium Total Bilirubin 0.5 D AST 18 ALT 18 Alkaline Phosphatase 76 D Ammonia Creatine Kinase Troponin I Total Protein 6.9 Albumin 3.4 Vitamin B12 TSH Urine Color Urine Appearance Urine pH Ur Specific [place] Urine Protein Urine Glucose (UA) Urine Ketones Urine Blood Urine Nitrite Urine Bilirubin Urine Urobilinogen Ur Leukocyte Esterase Urine WBC (Auto) Urine RBC (Auto) Urine Bacteria Granular Casts Urine Mucus Salicylates Opiates Screen Methadone Screen Acetaminophen Barbiturate Screen Phencyclidine Screen Ur Amphetamines Screen MDMA (Ecstasy) Screen Benzodiazepines Screen Cocaine Screen U Marijuana (THC) Screen Alcohol, Quantitative Acetone, Qual RPR Titer T.pallidum Ab ([facility]) 08/13/17 08/13/17 08/13/17 18:58 20:31 21:48 WBC RBC Hgb Hct MCV MCH MCHC RDW Plt Count MPV Neutrophils % Lymphocytes % Monocytes % Eosinophils % Basophils % VBG pH POC VBG pCO2 POC VBG pO2 Mixed VBG HCO3 Sodium Potassium Chloride Carbon Dioxide Anion Gap BUN Creatinine Creat Clearance w eGFR POC Glucometer 243.39981 163.91551 135.36305 Random Glucose Lactic Acid Calcium Phosphorus Magnesium Total Bilirubin AST ALT Alkaline Phosphatase Ammonia Creatine Kinase Troponin I Total Protein Albumin Vitamin B12 TSH Urine Color Urine Appearance Urine pH Ur Specific [place] Urine Protein Urine Glucose (UA) Urine Ketones Urine Blood Urine Nitrite Urine Bilirubin Urine Urobilinogen Ur Leukocyte Esterase Urine WBC (Auto) Urine RBC (Auto) Urine Bacteria Granular Casts Urine Mucus Salicylates Opiates Screen Methadone Screen Acetaminophen Barbiturate Screen Phencyclidine Screen Ur Amphetamines Screen MDMA (Ecstasy) Screen Benzodiazepines Screen Cocaine Screen U Marijuana (THC) Screen Alcohol, Quantitative Acetone, Qual RPR Titer T.pallidum Ab ([facility]) 08/13/17 08/14/17 08/14/17 23:58 02:03 04:11 WBC RBC Hgb Hct MCV MCH MCHC RDW Plt Count MPV Neutrophils % Lymphocytes % Monocytes % Eosinophils % Basophils % VBG pH POC VBG pCO2 POC VBG pO2 Mixed VBG HCO3 Sodium Potassium Chloride Carbon Dioxide Anion Gap BUN Creatinine Creat Clearance w eGFR POC Glucometer 128.36879 139.15413 153.87991 Random Glucose Lactic Acid Calcium Phosphorus Magnesium Total Bilirubin AST ALT Alkaline Phosphatase Ammonia Creatine Kinase Troponin I Total Protein Albumin Vitamin B12 TSH Urine Color Urine Appearance Urine pH Ur Specific [place] Urine Protein Urine Glucose (UA) Urine Ketones Urine Blood Urine Nitrite Urine Bilirubin Urine Urobilinogen Ur Leukocyte Esterase Urine WBC (Auto) Urine RBC (Auto) Urine Bacteria Granular Casts Urine Mucus Salicylates Opiates Screen Methadone Screen Acetaminophen Barbiturate Screen Phencyclidine Screen Ur Amphetamines Screen MDMA (Ecstasy) Screen Benzodiazepines Screen Cocaine Screen U Marijuana (THC) Screen Alcohol, Quantitative Acetone, Qual RPR Titer T.pallidum Ab ([facility]) 08/14/17 08/14/17 08/14/17 05:15 05:15 05:15 WBC 13.0 H RBC 3.59 L Hgb 10.6 L D Hct 32.2 L D MCV 89.9 MCH 29.5 MCHC 32.8 RDW 14.8 Plt Count 142 D MPV 9.7 Neutrophils % 85.1 H Lymphocytes % 9.0 D Monocytes % 5.4 Eosinophils % 0.0 Basophils % 0.5 VBG pH POC VBG pCO2 POC VBG pO2 Mixed VBG HCO3 Sodium 143 Potassium 3.8 Chloride 111 H Carbon Dioxide 17 L D Anion Gap 15 BUN 17 D Creatinine 1.0 D Creat Clearance w eGFR > 60 POC Glucometer Random Glucose 205 H Lactic Acid Calcium 8.4 L Phosphorus Magnesium Total Bilirubin 0.9 D AST 46 H D ALT 23 D Alkaline Phosphatase 74 Ammonia Creatine Kinase Troponin I Total Protein 6.8 Albumin 3.3 L Vitamin B12 TSH Urine Color Urine Appearance Urine pH Ur Specific [place] Urine Protein Urine Glucose (UA) Urine Ketones Urine Blood Urine Nitrite Urine Bilirubin Urine Urobilinogen Ur Leukocyte Esterase Urine WBC (Auto) Urine RBC (Auto) Urine Bacteria Granular Casts Urine Mucus Salicylates Opiates Screen Methadone Screen Acetaminophen Barbiturate Screen Phencyclidine Screen Ur Amphetamines Screen MDMA (Ecstasy) Screen Benzodiazepines Screen Cocaine Screen U Marijuana (THC) Screen Alcohol, Quantitative Acetone, Qual Positive moderate 2+ RPR Titer T.pallidum Ab ([facility]) 08/14/17 08/14/17 08/14/17 06:39 08:25 09:44 WBC RBC Hgb Hct MCV MCH MCHC RDW Plt Count MPV Neutrophils % Lymphocytes % Monocytes % Eosinophils % Basophils % VBG pH POC VBG pCO2 POC VBG pO2 Mixed VBG HCO3 Sodium Potassium Chloride Carbon Dioxide Anion Gap BUN Creatinine Creat Clearance w eGFR POC Glucometer 200.96810 261.42428 252.99592 Random Glucose Lactic Acid Calcium Phosphorus Magnesium Total Bilirubin AST ALT Alkaline Phosphatase Ammonia Creatine Kinase Troponin I Total Protein Albumin Vitamin B12 TSH Urine Color Urine Appearance Urine pH Ur Specific [place] Urine Protein Urine Glucose (UA) Urine Ketones Urine Blood Urine Nitrite Urine Bilirubin Urine Urobilinogen Ur Leukocyte Esterase Urine WBC (Auto) Urine RBC (Auto) Urine Bacteria Granular Casts Urine Mucus Salicylates Opiates Screen Methadone Screen Acetaminophen Barbiturate Screen Phencyclidine Screen Ur Amphetamines Screen MDMA (Ecstasy) Screen Benzodiazepines Screen Cocaine Screen U Marijuana (THC) Screen Alcohol, Quantitative Acetone, Qual RPR Titer T.pallidum Ab ([facility]) 08/14/17 08/14/17 08/14/17 10:40 11:13 12:13 WBC RBC Hgb Hct MCV MCH MCHC RDW Plt Count MPV Neutrophils % Lymphocytes % Monocytes % Eosinophils % Basophils % VBG pH POC VBG pCO2 POC VBG pO2 Mixed VBG HCO3 Sodium 141 Potassium 5.1 D Chloride 110 H Carbon Dioxide 16 L Anion Gap 15 BUN 15 Creatinine 1.2 Creat Clearance w eGFR POC Glucometer 208.47246 191.10293 Random Glucose 194 H Lactic Acid Calcium 8.6 Phosphorus Magnesium Total Bilirubin AST ALT Alkaline Phosphatase Ammonia Creatine Kinase Troponin I Total Protein Albumin Vitamin B12 TSH Urine Color Urine Appearance Urine pH Ur Specific [place] Urine Protein Urine Glucose (UA) Urine Ketones Urine Blood Urine Nitrite Urine Bilirubin Urine Urobilinogen Ur Leukocyte Esterase Urine WBC (Auto) Urine RBC (Auto) Urine Bacteria Granular Casts Urine Mucus Salicylates Opiates Screen Methadone Screen Acetaminophen Barbiturate Screen Phencyclidine Screen Ur Amphetamines Screen MDMA (Ecstasy) Screen Benzodiazepines Screen Cocaine Screen U Marijuana (THC) Screen Alcohol, Quantitative Acetone, Qual RPR Titer T.pallidum Ab ([facility]) 08/14/17 08/14/17 08/14/17 14:09 15:00 15:21 WBC RBC Hgb Hct MCV MCH MCHC RDW Plt Count MPV Neutrophils % Lymphocytes % Monocytes % Eosinophils % Basophils % VBG pH POC VBG pCO2 POC VBG pO2 Mixed VBG HCO3 Sodium 144 Potassium 3.2 L D Chloride 110 H Carbon Dioxide 26 D Anion Gap 8 BUN 12 Creatinine 1.0 Creat Clearance w eGFR POC Glucometer 134.02482 107.16500 Random Glucose 92 D Lactic Acid Calcium 8.6 Phosphorus Magnesium Total Bilirubin AST ALT Alkaline Phosphatase Ammonia Creatine Kinase Troponin I Total Protein Albumin Vitamin B12 TSH Urine Color Urine Appearance Urine pH Ur Specific [place] Urine Protein Urine Glucose (UA) Urine Ketones Urine Blood Urine Nitrite Urine Bilirubin Urine Urobilinogen Ur Leukocyte Esterase Urine WBC (Auto) Urine RBC (Auto) Urine Bacteria Granular Casts Urine Mucus Salicylates Opiates Screen Methadone Screen Acetaminophen Barbiturate Screen Phencyclidine Screen Ur Amphetamines Screen MDMA (Ecstasy) Screen Benzodiazepines Screen Cocaine Screen U Marijuana (THC) Screen Alcohol, Quantitative Acetone, Qual RPR Titer T.pallidum Ab ([facility]) 08/14/17 08/14/17 08/14/17 16:12 16:24 17:18 WBC RBC Hgb Hct MCV MCH MCHC RDW Plt Count MPV Neutrophils % Lymphocytes % Monocytes % Eosinophils % Basophils % VBG pH POC VBG pCO2 POC VBG pO2 Mixed VBG HCO3 Sodium Potassium Chloride Carbon Dioxide Anion Gap BUN Creatinine Creat Clearance w eGFR POC Glucometer 53.60023 92.26707 50.15827 Random Glucose Lactic Acid Calcium Phosphorus Magnesium Total Bilirubin AST ALT Alkaline Phosphatase Ammonia Creatine Kinase Troponin I Total Protein Albumin Vitamin B12 TSH Urine Color Urine Appearance Urine pH Ur Specific [place] Urine Protein Urine Glucose (UA) Urine Ketones Urine Blood Urine Nitrite Urine Bilirubin Urine Urobilinogen Ur Leukocyte Esterase Urine WBC (Auto) Urine RBC (Auto) Urine Bacteria Granular Casts Urine Mucus Salicylates Opiates Screen Methadone Screen Acetaminophen Barbiturate Screen Phencyclidine Screen Ur Amphetamines Screen MDMA (Ecstasy) Screen Benzodiazepines Screen Cocaine Screen U Marijuana (THC) Screen Alcohol, Quantitative Acetone, Qual RPR Titer T.pallidum Ab ([facility]) 08/14/17 08/14/17 08/14/17 17:29 18:19 19:45 WBC RBC Hgb Hct MCV MCH MCHC RDW Plt Count MPV Neutrophils % Lymphocytes % Monocytes % Eosinophils % Basophils % VBG pH POC VBG pCO2 POC VBG pO2 Mixed VBG HCO3 Sodium 139 Potassium 3.7 Chloride 105 Carbon Dioxide 22 Anion Gap 12 BUN 10 Creatinine 1.0 Creat Clearance w eGFR POC Glucometer 124.41053 216.70790 Random Glucose 166 H D Lactic Acid Calcium 8.7 Phosphorus 1.8 L D Magnesium 1.8 D Total Bilirubin AST ALT Alkaline Phosphatase Ammonia Creatine Kinase Troponin I Total Protein Albumin Vitamin B12 TSH Urine Color Urine Appearance Urine pH Ur Specific [place] Urine Protein Urine Glucose (UA) Urine Ketones Urine Blood Urine Nitrite Urine Bilirubin Urine Urobilinogen Ur Leukocyte Esterase Urine WBC (Auto) Urine RBC (Auto) Urine Bacteria Granular Casts Urine Mucus Salicylates Opiates Screen Methadone Screen Acetaminophen Barbiturate Screen Phencyclidine Screen Ur Amphetamines Screen MDMA (Ecstasy) Screen Benzodiazepines Screen Cocaine Screen U Marijuana (THC) Screen Alcohol, Quantitative Acetone, Qual RPR Titer T.pallidum Ab ([facility]) 08/14/17 08/15/17 08/15/17 22:26 00:27 02:03 WBC RBC Hgb Hct MCV MCH MCHC RDW Plt Count MPV Neutrophils % Lymphocytes % Monocytes % Eosinophils % Basophils % VBG pH POC VBG pCO2 POC VBG pO2 Mixed VBG HCO3 Sodium Potassium Chloride Carbon Dioxide Anion Gap BUN Creatinine Creat Clearance w eGFR POC Glucometer 287.25381 342.97745 [phone] Random Glucose Lactic Acid Calcium Phosphorus Magnesium Total Bilirubin AST ALT Alkaline Phosphatase Ammonia Creatine Kinase Troponin I Total Protein Albumin Vitamin B12 TSH Urine Color Urine Appearance Urine pH Ur Specific [place] Urine Protein Urine Glucose (UA) Urine Ketones Urine Blood Urine Nitrite Urine Bilirubin Urine Urobilinogen Ur Leukocyte Esterase Urine WBC (Auto) Urine RBC (Auto) Urine Bacteria Granular Casts Urine Mucus Salicylates Opiates Screen Methadone Screen Acetaminophen Barbiturate Screen Phencyclidine Screen Ur Amphetamines Screen MDMA (Ecstasy) Screen Benzodiazepines Screen Cocaine Screen U Marijuana (THC) Screen Alcohol, Quantitative Acetone, Qual RPR Titer T.pallidum Ab ([facility]) 08/15/17 08/15/17 08/15/17 04:04 05:05 05:05 WBC 10.8 H RBC 4.07 Hgb 12.2 D Hct 36.0 MCV 88.4 MCH 29.9 MCHC 33.8 RDW 15.0 Plt Count 130 L MPV 9.5 Neutrophils % 76.7 Lymphocytes % 15.7 D Monocytes % 7.1 Eosinophils % 0.0 Basophils % 0.5 VBG pH POC VBG pCO2 POC VBG pO2 Mixed VBG HCO3 Sodium 139 Potassium 3.1 L Chloride 103 Carbon Dioxide 28 D Anion Gap 8 BUN 8 Creatinine 0.9 Creat Clearance w eGFR > 60 POC Glucometer 179.39003 Random Glucose 60 L D Lactic Acid Calcium 8.7 Phosphorus 1.6 L Magnesium 2.2 D Total Bilirubin 1.7 H D AST 48 H ALT 25 Alkaline Phosphatase 89 D Ammonia Creatine Kinase Troponin I Total Protein 7.6 Albumin 3.7 Vitamin B12 TSH 0.79 D Urine Color Urine Appearance Urine pH Ur Specific [place] Urine Protein Urine Glucose (UA) Urine Ketones Urine Blood Urine Nitrite Urine Bilirubin Urine Urobilinogen Ur Leukocyte Esterase Urine WBC (Auto) Urine RBC (Auto) Urine Bacteria Granular Casts Urine Mucus Salicylates Opiates Screen Methadone Screen Acetaminophen Barbiturate Screen Phencyclidine Screen Ur Amphetamines Screen MDMA (Ecstasy) Screen Benzodiazepines Screen Cocaine Screen U Marijuana (THC) Screen Alcohol, Quantitative Acetone, Qual RPR Titer T.pallidum Ab ([facility]) 08/15/17 08/15/17 08/15/17 05:05 05:05 05:05 WBC RBC Hgb Hct MCV MCH MCHC RDW Plt Count MPV Neutrophils % Lymphocytes % Monocytes % Eosinophils % Basophils % VBG pH POC VBG pCO2 POC VBG pO2 Mixed VBG HCO3 Sodium Potassium Chloride Carbon Dioxide Anion Gap BUN Creatinine Creat Clearance w eGFR POC Glucometer Random Glucose Lactic Acid Calcium Phosphorus Magnesium Total Bilirubin AST ALT Alkaline Phosphatase Ammonia 25.38 Creatine Kinase Troponin I Total Protein Albumin Vitamin B12 999 H TSH Urine Color Urine Appearance Urine pH Ur Specific [place] Urine Protein Urine Glucose (UA) Urine Ketones Urine Blood Urine Nitrite Urine Bilirubin Urine Urobilinogen Ur Leukocyte Esterase Urine WBC (Auto) Urine RBC (Auto) Urine Bacteria Granular Casts Urine Mucus Salicylates Opiates Screen Methadone Screen Acetaminophen Barbiturate Screen Phencyclidine Screen Ur Amphetamines Screen MDMA (Ecstasy) Screen Benzodiazepines Screen Cocaine Screen U Marijuana (THC) Screen Alcohol, Quantitative Acetone, Qual RPR Titer Reactive 1:1 H T.pallidum Ab ([facility]) Non reactive 08/15/17 08/15/17 08/15/17 05:51 08:07 10:31 WBC RBC Hgb Hct MCV MCH MCHC RDW Plt Count MPV Neutrophils % Lymphocytes % Monocytes % Eosinophils % Basophils % VBG pH POC VBG pCO2 POC VBG pO2 Mixed VBG HCO3 Sodium Potassium Chloride Carbon Dioxide Anion Gap BUN Creatinine Creat Clearance w eGFR POC Glucometer 88.73624 82.68339 85.21749 Random Glucose Lactic Acid Calcium Phosphorus Magnesium Total Bilirubin AST ALT Alkaline Phosphatase Ammonia Creatine Kinase Troponin I Total Protein Albumin Vitamin B12 TSH Urine Color Urine Appearance Urine pH Ur Specific [place] Urine Protein Urine Glucose (UA) Urine Ketones Urine Blood Urine Nitrite Urine Bilirubin Urine Urobilinogen Ur Leukocyte Esterase Urine WBC (Auto) Urine RBC (Auto) Urine Bacteria Granular Casts Urine Mucus Salicylates Opiates Screen Methadone Screen Acetaminophen Barbiturate Screen Phencyclidine Screen Ur Amphetamines Screen MDMA (Ecstasy) Screen Benzodiazepines Screen Cocaine Screen U Marijuana (THC) Screen Alcohol, Quantitative Acetone, Qual RPR Titer T.pallidum Ab ([facility]) 08/15/17 08/15/17 08/15/17 12:55 14:48 16:55 WBC RBC Hgb Hct MCV MCH MCHC RDW Plt Count MPV Neutrophils % Lymphocytes % Monocytes % Eosinophils % Basophils % VBG pH POC VBG pCO2 POC VBG pO2 Mixed VBG HCO3 Sodium Potassium Chloride Carbon Dioxide Anion Gap BUN Creatinine Creat Clearance w eGFR POC Glucometer 253.19135 145.68649 163.13125 Random Glucose Lactic Acid Calcium Phosphorus Magnesium Total Bilirubin AST ALT Alkaline Phosphatase Ammonia Creatine Kinase Troponin I Total Protein Albumin Vitamin B12 TSH Urine Color Urine Appearance Urine pH Ur Specific [place] Urine Protein Urine Glucose (UA) Urine Ketones Urine Blood Urine Nitrite Urine Bilirubin Urine Urobilinogen Ur Leukocyte Esterase Urine WBC (Auto) Urine RBC (Auto) Urine Bacteria Granular Casts Urine Mucus Salicylates Opiates Screen Methadone Screen Acetaminophen Barbiturate Screen Phencyclidine Screen Ur Amphetamines Screen MDMA (Ecstasy) Screen Benzodiazepines Screen Cocaine Screen U Marijuana (THC) Screen Alcohol, Quantitative Acetone, Qual RPR Titer T.pallidum Ab ([facility]) 08/15/17 08/15/17 08/16/17 17:55 21:41 05:43 WBC RBC Hgb Hct MCV MCH MCHC RDW Plt Count MPV Neutrophils % Lymphocytes % Monocytes % Eosinophils % Basophils % VBG pH POC VBG pCO2 POC VBG pO2 Mixed VBG HCO3 Sodium Potassium Chloride Carbon Dioxide Anion Gap BUN Creatinine Creat Clearance w eGFR POC Glucometer 161.60753 280.32934 296 Random Glucose Lactic Acid Calcium Phosphorus Magnesium Total Bilirubin AST ALT Alkaline Phosphatase Ammonia Creatine Kinase Troponin I Total Protein Albumin Vitamin B12 TSH Urine Color Urine Appearance Urine pH Ur Specific [place] Urine Protein Urine Glucose (UA) Urine Ketones Urine Blood Urine Nitrite Urine Bilirubin Urine Urobilinogen Ur Leukocyte Esterase Urine WBC (Auto) Urine RBC (Auto) Urine Bacteria Granular Casts Urine Mucus Salicylates Opiates Screen Methadone Screen Acetaminophen Barbiturate Screen Phencyclidine Screen Ur Amphetamines Screen MDMA (Ecstasy) Screen Benzodiazepines Screen Cocaine Screen U Marijuana (THC) Screen Alcohol, Quantitative Acetone, Qual RPR Titer T.pallidum Ab ([facility]) 08/16/17 08/16/17 08/16/17 06:00 06:00 12:40 WBC 6.9 D RBC 4.07 Hgb 11.7 Hct 36.4 MCV 89.5 MCH 28.8 MCHC 32.2 RDW 14.9 Plt Count 106 L MPV 9.5 Neutrophils % 71.9 Lymphocytes % 20.6 D Monocytes % 7.0 Eosinophils % 0.1 D Basophils % 0.4 VBG pH POC VBG pCO2 POC VBG pO2 Mixed VBG HCO3 Sodium 137 Potassium 4.0 D Chloride 100 Carbon Dioxide 24 Anion Gap 13 BUN 11 D Creatinine 0.8 Creat Clearance w eGFR > 60 POC Glucometer 245 Random Glucose 273 H D Lactic Acid Calcium 8.5 Phosphorus Magnesium Total Bilirubin 1.5 H AST 30 D ALT 19 D Alkaline Phosphatase 87 Ammonia Creatine Kinase Troponin I Total Protein 7.0 Albumin 3.2 L Vitamin B12 TSH Urine Color Urine Appearance Urine pH Ur Specific Kempner Urine Protein Urine Glucose (UA) Urine Ketones Urine Blood Urine Nitrite Urine Bilirubin Urine Urobilinogen Ur Leukocyte Esterase Urine WBC (Auto) Urine RBC (Auto) Urine Bacteria Granular Casts Urine Mucus Salicylates Opiates Screen Methadone Screen Acetaminophen Barbiturate Screen Phencyclidine Screen Ur Amphetamines Screen MDMA (Ecstasy) Screen Benzodiazepines Screen Cocaine Screen U Marijuana (THC) Screen Alcohol, Quantitative Acetone, Qual RPR Titer T.pallidum Ab ([facility]) 08/16/17 08/16/17 08/16/17 15:55 17:32 21:26 WBC RBC Hgb Hct MCV MCH MCHC RDW Plt Count MPV Neutrophils % Lymphocytes % Monocytes % Eosinophils % Basophils % VBG pH POC VBG pCO2 POC VBG pO2 Mixed VBG HCO3 Sodium Potassium Chloride Carbon Dioxide Anion Gap BUN Creatinine Creat Clearance w eGFR POC Glucometer 300 295 222 Random Glucose Lactic Acid Calcium Phosphorus Magnesium Total Bilirubin AST ALT Alkaline Phosphatase Ammonia Creatine Kinase Troponin I Total Protein Albumin Vitamin B12 TSH Urine Color Urine Appearance Urine pH Ur Specific [place] Urine Protein Urine Glucose (UA) Urine Ketones Urine Blood Urine Nitrite Urine Bilirubin Urine Urobilinogen Ur Leukocyte Esterase Urine WBC (Auto) Urine RBC (Auto) Urine Bacteria Granular Casts Urine Mucus Salicylates Opiates Screen Methadone Screen Acetaminophen Barbiturate Screen Phencyclidine Screen Ur Amphetamines Screen MDMA (Ecstasy) Screen Benzodiazepines Screen Cocaine Screen U Marijuana (THC) Screen Alcohol, Quantitative Acetone, Qual RPR Titer T.pallidum Ab ([facility]) 08/16/17 08/17/17 08/17/17 23:56 05:41 06:00 WBC 7.3 RBC 4.23 Hgb 12.1 Hct 37.8 MCV 89.3 MCH 28.7 MCHC 32.1 RDW 14.7 Plt Count 115 L MPV 10.3 Neutrophils % 65.5 Lymphocytes % 23.8 Monocytes % 10.0 Eosinophils % 0.2 D Basophils % 0.5 VBG pH POC VBG pCO2 POC VBG pO2 Mixed VBG HCO3 Sodium Potassium Chloride Carbon Dioxide Anion Gap BUN Creatinine Creat Clearance w eGFR POC Glucometer 198 102 Random Glucose Lactic Acid Calcium Phosphorus Magnesium Total Bilirubin AST ALT Alkaline Phosphatase Ammonia Creatine Kinase Troponin I Total Protein Albumin Vitamin B12 TSH Urine Color Urine Appearance Urine pH Ur Specific [place] Urine Protein Urine Glucose (UA) Urine Ketones Urine Blood Urine Nitrite Urine Bilirubin Urine Urobilinogen Ur Leukocyte Esterase Urine WBC (Auto) Urine RBC (Auto) Urine Bacteria Granular Casts Urine Mucus Salicylates Opiates Screen Methadone Screen Acetaminophen Barbiturate Screen Phencyclidine Screen Ur Amphetamines Screen MDMA (Ecstasy) Screen Benzodiazepines Screen Cocaine Screen U Marijuana (THC) Screen Alcohol, Quantitative Acetone, Qual RPR Titer T.pallidum Ab ([facility]) 08/17/17 08/17/17 08/17/17 06:00 09:52 12:27 WBC RBC Hgb Hct MCV MCH MCHC RDW Plt Count MPV Neutrophils % Lymphocytes % Monocytes % Eosinophils % Basophils % VBG pH POC VBG pCO2 POC VBG pO2 Mixed VBG HCO3 Sodium 140 Potassium 3.6 Chloride 103 Carbon Dioxide 23 Anion Gap 14 BUN 9 Creatinine 0.8 Creat Clearance w eGFR > 60 POC Glucometer 92 272 Random Glucose 78 D Lactic Acid Calcium 8.8 Phosphorus Magnesium Total Bilirubin 1.3 H AST 31 ALT 19 Alkaline Phosphatase 91 Ammonia Creatine Kinase Troponin I Total Protein 7.4 Albumin 3.4 Vitamin B12 TSH Urine Color Urine Appearance Urine pH Ur Specific [place] Urine Protein Urine Glucose (UA) Urine Ketones Urine Blood Urine Nitrite Urine Bilirubin Urine Urobilinogen Ur Leukocyte Esterase Urine WBC (Auto) Urine RBC (Auto) Urine Bacteria Granular Casts Urine Mucus Salicylates Opiates Screen Methadone Screen Acetaminophen Barbiturate Screen Phencyclidine Screen Ur Amphetamines Screen MDMA (Ecstasy) Screen Benzodiazepines Screen Cocaine Screen U Marijuana (THC) Screen Alcohol, Quantitative Acetone, Qual RPR Titer T.pallidum Ab ([facility]) 08/17/17 08/17/17 08/18/17 17:05 22:57 05:54 WBC RBC Hgb Hct MCV MCH MCHC RDW Plt Count MPV Neutrophils % Lymphocytes % Monocytes % Eosinophils % Basophils % VBG pH POC VBG pCO2 POC VBG pO2 Mixed VBG HCO3 Sodium Potassium Chloride Carbon Dioxide Anion Gap BUN Creatinine Creat Clearance w eGFR POC Glucometer 176 311 191 Random Glucose Lactic Acid Calcium Phosphorus Magnesium Total Bilirubin AST ALT Alkaline Phosphatase Ammonia Creatine Kinase Troponin I Total Protein Albumin Vitamin B12 TSH Urine Color Urine Appearance Urine pH Ur Specific [place] Urine Protein Urine Glucose (UA) Urine Ketones Urine Blood Urine Nitrite Urine Bilirubin Urine Urobilinogen Ur Leukocyte Esterase Urine WBC (Auto) Urine RBC (Auto) Urine Bacteria Granular Casts Urine Mucus Salicylates Opiates Screen Methadone Screen Acetaminophen Barbiturate Screen Phencyclidine Screen Ur Amphetamines Screen MDMA (Ecstasy) Screen Benzodiazepines Screen Cocaine Screen U Marijuana (THC) Screen Alcohol, Quantitative Acetone, Qual RPR Titer T.pallidum Ab ([facility]) 08/18/17 08/18/17 08/18/17 12:08 17:28 23:19 WBC RBC Hgb Hct MCV MCH MCHC RDW Plt Count MPV Neutrophils % Lymphocytes % Monocytes % Eosinophils % Basophils % VBG pH POC VBG pCO2 POC VBG pO2 Mixed VBG HCO3 Sodium Potassium Chloride Carbon Dioxide Anion Gap BUN Creatinine Creat Clearance w eGFR POC Glucometer 223 304 365 Random Glucose Lactic Acid Calcium Phosphorus Magnesium Total Bilirubin AST ALT Alkaline Phosphatase Ammonia Creatine Kinase Troponin I Total Protein Albumin Vitamin B12 TSH Urine Color Urine Appearance Urine pH Ur Specific [place] Urine Protein Urine Glucose (UA) Urine Ketones Urine Blood Urine Nitrite Urine Bilirubin Urine Urobilinogen Ur Leukocyte Esterase Urine WBC (Auto) Urine RBC (Auto) Urine Bacteria Granular Casts Urine Mucus Salicylates Opiates Screen Methadone Screen Acetaminophen Barbiturate Screen Phencyclidine Screen Ur Amphetamines Screen MDMA (Ecstasy) Screen Benzodiazepines Screen Cocaine Screen U Marijuana (THC) Screen Alcohol, Quantitative Acetone, Qual RPR Titer T.pallidum Ab ([facility]) 08/19/17 08/19/17 08/19/17 07:02 12:02 16:48 WBC RBC Hgb Hct MCV MCH MCHC RDW Plt Count MPV Neutrophils % Lymphocytes % Monocytes % Eosinophils % Basophils % VBG pH POC VBG pCO2 POC VBG pO2 Mixed VBG HCO3 Sodium Potassium Chloride Carbon Dioxide Anion Gap BUN Creatinine Creat Clearance w eGFR POC Glucometer 270 74 96 Random Glucose Lactic Acid Calcium Phosphorus Magnesium Total Bilirubin AST ALT Alkaline Phosphatase Ammonia Creatine Kinase Troponin I Total Protein Albumin Vitamin B12 TSH Urine Color Urine Appearance Urine pH Ur Specific [place] Urine Protein Urine Glucose (UA) Urine Ketones Urine Blood Urine Nitrite Urine Bilirubin Urine Urobilinogen Ur Leukocyte Esterase Urine WBC (Auto) Urine RBC (Auto) Urine Bacteria Granular Casts Urine Mucus Salicylates Opiates Screen Methadone Screen Acetaminophen Barbiturate Screen Phencyclidine Screen Ur Amphetamines Screen MDMA (Ecstasy) Screen Benzodiazepines Screen Cocaine Screen U Marijuana (THC) Screen Alcohol, Quantitative Acetone, Qual RPR Titer T.pallidum Ab ([facility]) 08/19/17 08/20/17 08/20/17 21:21 06:59 07:00 WBC 6.8 RBC 4.86 Hgb 14.2 D Hct 43.8 D MCV 90.2 MCH 29.1 MCHC 32.3 RDW 15.0 Plt Count 206 D MPV 9.8 Neutrophils % 63.9 Lymphocytes % 24.5 Monocytes % 10.8 H Eosinophils % 0.1 Basophils % 0.7 VBG pH POC VBG pCO2 POC VBG pO2 Mixed VBG HCO3 Sodium Potassium Chloride Carbon Dioxide Anion Gap BUN Creatinine Creat Clearance w eGFR POC Glucometer 276 178 Random Glucose Lactic Acid Calcium Phosphorus Magnesium Total Bilirubin AST ALT Alkaline Phosphatase Ammonia Creatine Kinase Troponin I Total Protein Albumin Vitamin B12 TSH Urine Color Urine Appearance Urine pH Ur Specific [place] Urine Protein Urine Glucose (UA) Urine Ketones Urine Blood Urine Nitrite Urine Bilirubin Urine Urobilinogen Ur Leukocyte Esterase Urine WBC (Auto) Urine RBC (Auto) Urine Bacteria Granular Casts Urine Mucus Salicylates Opiates Screen Methadone Screen Acetaminophen Barbiturate Screen Phencyclidine Screen Ur Amphetamines Screen MDMA (Ecstasy) Screen Benzodiazepines Screen Cocaine Screen U Marijuana (THC) Screen Alcohol, Quantitative Acetone, Qual RPR Titer T.pallidum Ab ([facility]) 08/20/17 08/20/17 07:00 12:10 WBC RBC Hgb Hct MCV MCH MCHC RDW Plt Count MPV Neutrophils % Lymphocytes % Monocytes % Eosinophils % Basophils % VBG pH POC VBG pCO2 POC VBG pO2 Mixed VBG HCO3 Sodium 141 Potassium 3.5 Chloride 102 Carbon Dioxide 24 Anion Gap 15 BUN 11 D Creatinine 0.9 Creat Clearance w eGFR > 60 POC Glucometer 293 Random Glucose 185 H D Lactic Acid Calcium 9.5 Phosphorus Magnesium Total Bilirubin 0.6 D AST 29 ALT 25 D Alkaline Phosphatase 96 Ammonia Creatine Kinase Troponin I Total Protein 8.4 H Albumin 3.6 Vitamin B12 TSH Urine Color Urine Appearance Urine pH Ur Specific [place] Urine Protein Urine Glucose (UA) Urine Ketones Urine Blood Urine Nitrite Urine Bilirubin Urine Urobilinogen Ur Leukocyte Esterase Urine WBC (Auto) Urine RBC (Auto) Urine Bacteria Granular Casts Urine Mucus Salicylates Opiates Screen Methadone Screen Acetaminophen Barbiturate Screen Phencyclidine Screen Ur Amphetamines Screen MDMA (Ecstasy) Screen Benzodiazepines Screen Cocaine Screen U Marijuana (THC) Screen Alcohol, Quantitative Acetone, Qual RPR Titer T.pallidum Ab ([facility]) hypertensive and tqachycardic Assessment: 08/20/17 15:33 opioid use diorder, - pateint has not had methadone since 08/12/2018 and will be in withdrawal as it was abruptly stopped and this may be hindering his recovery, will start methadone 10mg daily, x1 dose now and then increase as tolerated 10-20mg a week until patient is comfortable. Lemuel Hansen MD [phone]
[2017-08-20] MEDS: METHADONE HCL 10 MG TABLET PO SCH ×3 (15:39→15:41)
[2017-08-20] MEDS ORDERED: LISINOPRIL 10 MG TABLET (FP) PO ONE (15:53)
[2017-08-20] MEDS: LISINOPRIL 20 MG TABLET (FP) PO SCH (16:46)
--- NOTE | 2017-08-20 20:07 | PN ---
Progress Note, Physician - Current Medication List Current Medications: Active Medications Amlodipine Besylate (Norvasc -) 5 mg PO DAILY [facility] Last Admin: 08/20/17 09:54 Dose: 5 mg Aspirin (Asa -) 81 mg PO DAILY [facility] Folic Acid (Folic Acid -) 1 mg PO DAILY [facility] Last Admin: 08/20/17 09:54 Dose: 1 mg Heparin Sodium (Porcine) (Heparin -) 5,000 unit SQ TID [facility] Last Admin: 08/20/17 13:50 Dose: 5,000 unit Hydrochlorothiazide (Hctz -) 12.5 mg PO DAILY [facility] Last Admin: 08/20/17 09:54 Dose: 12.5 mg Insulin Aspart (Novolog Vial Sliding Scale -) 1 vial SQ HS [facility] PRN Reason: Protocol Last Admin: 08/20/17 09:54 Dose: 2 units Insulin Aspart (Novolog Vial Sliding Scale -) 1 vial SQ TIDAC [facility] PRN Reason: Protocol Last Admin: 08/20/17 16:55 Dose: 4 units Insulin Detemir (Levemir Vial) 14 units SQ HS [facility] Last Admin: 08/19/17 21:51 Dose: 14 units Lisinopril (Prinivil) 20 mg PO DAILY [facility] Last Admin: 08/20/17 16:46 Dose: 20 mg Methadone HCl (Dolophine -) 10 mg PO DAILY@0600 [facility] Nifedipine (Procardia Xl -) 30 mg PO HS [facility] Olanzapine (Zyprexa -) 5 mg PO [facility] Last Admin: 08/19/17 21:29 Dose: 5 mg Multivit/Folic Acid/Iron ( Vitamins (Sjr) -) 1 tab PO DAILY [facility] Last Admin: 08/20/17 09:54 Dose: 1 tab Ranolazine (Ranexa -) 500 mg PO DAILY [facility] Last Admin: 08/20/17 09:54 Dose: 500 mg Thiamine HCl (Vitamin B1 -) 100 mg PO HS [facility] Last Admin: 08/19/17 21:29 Dose: 100 mg - Objective Vital Signs: Vital Signs Temperature 98.7 F 08/20/17 14:30 Pulse Rate 118 H 08/20/17 19:25 Respiratory Rate 20 08/20/17 19:25 Blood Pressure 142/86 08/20/17 19:25 O2 Sat by Pulse Oximetry (%) 99 08/20/17 09:00 Labs: CBC, BMP 08/20/17 07:00 08/20/17 07:00 Problem List - Problems (1) Lethargy Code(s): R53.83 - OTHER FATIGUE (2) DKA (diabetic ketoacidosis) Code(s): E13.10 - OTH DIABETES MELLITUS WITH KETOACIDOSIS WITHOUT COMA Qualifiers: Diabetes mellitus type: due to underlying condition Diabetes mellitus complication detail: with coma Qualified Code(s): E08.11 - Diabetes mellitus due to underlying condition with ketoacidosis with coma (3) HTN (hypertension) Code(s): I10 - ESSENTIAL (PRIMARY) HYPERTENSION (4) Substance abuse Code(s): F19.10 - OTHER PSYCHOACTIVE SUBSTANCE ABUSE, UNCOMPLICATED (5) HIV (human immunodeficiency virus infection) Code(s): Z21 - ASYMPTOMATIC HUMAN IMMUNODEFICIENCY VIRUS INFECTION STATUS
[2017-08-20] MEDS: OLANZapine 5 MG TABLET PO SCH (21:35)
[2017-08-20] MEDS: THIAMINE HCL 100 MG TABLET (FP) PO SCH (21:35)
[2017-08-20] MEDS: INSULIN DETEMIR 100 UNITS/ML MDV SQ SCH (21:35)
[2017-08-20] MEDS: NIFEdipine E.R. 30 MG TABLET (FP) PO SCH (21:35)
[2017-08-21] MEDS: HEPARIN NA (PORCINE) 5,000 UNITS/ML 1ML VIAL SQ SCH ×3 (05:50→21:42)
[2017-08-21] MEDS: METHADONE HCL 10 MG TABLET PO SCH (05:50)
[2017-08-21] MEDS: INSULIN SLIDING SCALE (NOVOLOG) 1 VIAL SQ SCH ×4 (07:10→21:41)
--- NOTE | 2017-08-21 08:58 | PN ---
Progress Note, Physician Chief Complaint: alert and oriented eating breakfast History of Present Illness: BP trend is improved - Current Medication List Current Medications: Active Medications Amlodipine Besylate (Norvasc -) 5 mg PO DAILY [facility] Last Admin: 08/20/17 09:54 Dose: 5 mg Aspirin (Asa -) 81 mg PO DAILY [facility] Folic Acid (Folic Acid -) 1 mg PO DAILY [facility] Last Admin: 08/20/17 09:54 Dose: 1 mg Heparin Sodium (Porcine) (Heparin -) 5,000 unit SQ TID [facility] Last Admin: 08/21/17 05:50 Dose: 5,000 unit Hydrochlorothiazide (Hctz -) 12.5 mg PO DAILY [facility] Last Admin: 08/20/17 09:54 Dose: 12.5 mg Insulin Aspart (Novolog Vial Sliding Scale -) 1 vial SQ HS [facility] PRN Reason: Protocol Last Admin: 08/20/17 22:08 Dose: 3 units Insulin Aspart (Novolog Vial Sliding Scale -) 1 vial SQ TIDAC [facility] PRN Reason: Protocol Last Admin: 08/21/17 07:10 Dose: 3 units Insulin Detemir (Levemir Vial) 14 units SQ [facility] Last Admin: 08/20/17 21:35 Dose: 14 units Lisinopril (Prinivil) 20 mg PO DAILY [facility] Last Admin: 08/20/17 16:46 Dose: 20 mg Methadone HCl (Dolophine -) 10 mg PO DAILY@0600 [facility] Last Admin: 08/21/17 05:50 Dose: 10 mg Nifedipine (Procardia Xl -) 30 mg PO [facility] Last Admin: 08/20/17 21:35 Dose: 30 mg Olanzapine (Zyprexa -) 5 mg PO [facility] Last Admin: 08/20/17 21:35 Dose: 5 mg Multivit/Folic Acid/Iron ( Vitamins (Sjr) -) 1 tab PO DAILY [facility] Last Admin: 08/20/17 09:54 Dose: 1 tab Ranolazine (Ranexa -) 500 mg PO DAILY [facility] Last Admin: 08/20/17 09:54 Dose: 500 mg Thiamine HCl (Vitamin B1 -) 100 mg PO [facility] Last Admin: 08/20/17 21:35 Dose: 100 mg - Objective Vital Signs: Vital Signs Temperature 98 F 08/20/17 21:59 Pulse Rate 108 H 01/08/18 21:59 Respiratory Rate 20 08/20/17 21:59 Blood Pressure 139/89 08/20/17 21:59 O2 Sat by Pulse Oximetry (%) 99 08/20/17 21:00 Constitutional: Yes: Calm Cardiovascular: Yes: Regular Rate and Rhythm Respiratory: Yes: CTA Bilaterally Gastrointestinal: Yes: Soft Edema: No Neurological: Yes: Alert, Oriented Labs: CBC, BMP 08/20/17 07:00 08/20/17 07:00 Assessment/Plan Assessment/Plan 66 year old man with a h/o HTN, DMII, HIV, HCV, non-adherence with medications and f/up, prior DKA, admitted with seizure, AMS, DKA, noted to have severe uncontrolled HTN as well. HTN-better controlled -Cont. current Rx AMS-due to DKA -as per PMD/endo
[2017-08-21] MEDS: HYDROCHLOROTHIAZIDE 12.5 MG CAPSULE (FP) PO SCH (09:12)
[2017-08-21] MEDS: amLODIPine BESYLATE 5 MG TABLET (FP) PO SCH (09:13)
[2017-08-21] MEDS: FOLIC ACID 1 MG TABLET (FP) PO SCH (09:13)
[2017-08-21] MEDS: LISINOPRIL 20 MG TABLET (FP) PO SCH (09:13)
[2017-08-21] MEDS: RANOLAZINE E.R. 500 MG TABLET (FP) PO SCH (09:13)
[2017-08-21] MEDS: ASPIRIN 81 MG CHEWABLE TABLETS PO SCH (09:13)
[2017-08-21] MEDS ORDERED: PT OWN MED DRAWER 7, Y5N ONE (09:47)
[2017-08-21] MEDS: PRENATAL VITAMINS W/ FOLIC ACID TABLET (FP) PO SCH (09:56)
--- NOTE | 2017-08-21 13:42 | CON.ID ---
Consult - Past Medical History [employer]: Yes: Other (PI) Cardio/Vascular: Yes: HTN, Hyperlipdemia Hepatobiliary: Yes: Hepatitis C Infectious Disease: Yes: HIV Psych: Yes: Addictions Endocrine: Yes: Diabetes Mellitus - Alcohol/Substance Use Hx Alcohol Use: No - Smoking History Smoking history: Unknown if ever smoked Have you smoked in the past 12 months: No Aproximately how many cigarettes per day: 1 - Social History Usual Living Arrangement: With Significant Other ADL: Independent History of Recent Travel: No Home Medications - Allergies Allergies/Adverse Reactions: Allergies Allergy/AdvReac Type Severity Reaction Status Date / Time No Known Drug Allergies Allergy Verified 08/13/17 06:55 pollen and dust Allergy Mild Itching Uncoded 08/13/17 06:55 weeds Allergy Mild Uncoded 08/13/17 06:55 - Home Medications Home Medications: Ambulatory Orders ASA - 81 mg PO DAILY 11/08/16 Hctz - 12.5 mg PO DAILY 11/08/16 Metformin Xr 100 mg PO 11/08/16 Novolog Flexpen SQ ACHS 11/08/16 Ranexa 500 mg PO DAILY 11/08/16 Methadone [Dolophine -] 60 mg PO DAILY 08/13/17 Family Disease History - Family Disease History Family Disease History: Diabetes: Mother (d age 84 from dm), Heart Disease: Father (d age 50s hx mi), Mother, Brother (8 brothers, 1 dec'd age 60s from ca), Other: Grandparent (all dec'd natural causes), Father, Brother, Sister (3 all a&w), Son (has 4 a&w), Daughter (2 a&w) Physical Exam Vital Signs: Vital Signs Temperature 98 F 08/20/17 21:59 Pulse Rate 108 H 08/20/17 21:59 Respiratory Rate 20 08/20/17 21:59 Blood Pressure 139/89 08/20/17 21:59 O2 Sat by Pulse Oximetry (%) 99 08/20/17 21:00 Labs: CBC, BMP 08/20/17 07:00 08/20/17 07:00
--- NOTE | 2017-08-21 14:27 | PN ---
Progress Note (short form) - Note Progress Note: Awake, alert today apetite good. BGM fluctuating No hypos Vital Signs Period Temp Pulse Resp BP Sys/Foley Pulse Ox Last 24 Hr 98 F-98.7 F 108-118 18-20 139-175/86-113 99 PE: Awake ,alert today, knows hospital name and year as 2017 Neck: Supple Lungs: CTA CVS: S1S2 Abd: Benign EXt: No edema CMP Sodium 141 mmol/L (136-145) 08/20/17 07:00 Potassium 3.5 mmol/L (3.5-5.1) 08/20/17 07:00 Chloride 102 mmol/L (98-107) 08/20/17 07:00 Carbon Dioxide 24 mmol/L (21-32) 08/20/17 07:00 Anion Gap 15 (8-16) 08/20/17 07:00 BUN 11 mg/dL (7-18) D 08/20/17 07:00 Creatinine 0.9 mg/dL (0.7-1.3) 08/20/17 07:00 Creat Clearance w eGFR > 60 (>60) 08/20/17 07:00 POC Glucometer 297 UNITS (80-120) 08/21/17 12:51 Random Glucose 185 mg/dL (74-106) H D 08/20/17 07:00 Lactic Acid 2.1 mmol/L (0.4-2.0) H* 08/13/17 11:55 Calcium 9.5 mg/dL (8.5-10.1) 08/20/17 07:00 Phosphorus 1.6 mg/dL (2.5-4.9) L 08/15/17 05:05 Magnesium 2.2 mg/dL (1.8-2.4) D 08/15/17 05:05 Total Bilirubin 0.6 mg/dL (0.2-1.0) D 08/20/17 07:00 AST 29 U/L (15-37) 08/20/17 07:00 ALT 25 U/L (12-78) D 08/20/17 07:00 Alkaline Phosphatase 96 U/L (45-117) 08/20/17 07:00 Ammonia 25.38 umol/L (11-32) 08/15/17 05:05 Creatine Kinase 91 IU/L (39-308) 08/13/17 07:40 Troponin I < 0.02 ng/ml (0.00-0.05) 08/13/17 07:40 Total Protein 8.4 g/dl (6.4-8.2) H 08/20/17 07:00 Albumin 3.6 g/dl (3.4-5.0) 08/20/17 07:00 Vitamin B12 999 pg/ml (180-914) H 08/15/17 05:05 TSH 0.79 uIU/ml (0.358-3.74) D 08/15/17 05:05 Current Medications Generic Name Dose Route Start Last Admin Trade Name Neelq PRN Reason Stop Dose Admin Amlodipine Besylate 5 mg 08/20/17 10:00 08/21/17 09:13 Norvasc - PO 5 mg DAILY [facility] Administration Aspirin 81 mg 08/21/17 10:00 08/21/17 09:13 Asa - PO 81 mg DAILY [facility] Administration Folic Acid 1 mg 08/20/17 10:00 08/21/17 09:13 Folic Acid - PO 1 mg DAILY [facility] Administration Heparin Sodium (Porcine) 5,000 unit 08/15/17 22:00 08/21/17 05:50 Heparin - SQ 5,000 unit TID [facility] Administration Hydrochlorothiazide 12.5 mg 08/16/17 10:00 08/21/17 09:12 Hctz - PO 12.5 mg DAILY [facility] Administration Insulin Aspart 1 vial 08/17/17 22:00 08/20/17 22:08 Novolog Vial Sliding Scale - SQ 3 units HS [facility] Administration Protocol Insulin Aspart 1 vial 08/19/17 12:26 08/21/17 12:54 Novolog Vial Sliding Scale - SQ 5 units TIDAC [facility] Administration Protocol Insulin Detemir 14 units 08/19/17 22:00 08/20/17 21:35 Levemir Vial SQ 14 units HS [facility] Administration Lisinopril 20 mg 08/20/17 16:15 08/21/17 09:13 Prinivil PO 20 mg DAILY [facility] Administration Methadone HCl 10 mg 08/21/17 06:00 08/21/17 05:50 Dolophine - PO 10 mg DAILY@0600 [facility] Administration Nifedipine 30 mg 08/20/17 22:00 08/20/17 21:35 Procardia Xl - PO 30 mg HS [facility] Administration Olanzapine 5 mg 08/18/17 22:00 08/20/17 21:35 Zyprexa - PO 5 mg HS [facility] Administration Multivit/Folic Acid/Iron 1 tab 08/16/17 10:00 08/21/17 09:56 Vitamins (Sjr) - PO 1 tab DAILY [facility] Administration Ranolazine 500 mg 08/16/17 10:00 08/21/17 09:13 Ranexa - PO 500 mg DAILY [facility] Administration Thiamine HCl 100 mg 08/16/17 22:00 08/20/17 21:35 Vitamin B1 - PO 100 mg HS [facility] Administration AP: DKA Brittle DM ADEEL: Normal Creatinine now ETOH use BGM Q ACHS Monitor electrolytes Electrolyte replacement as necessary Increase Levemir 16 units daily Increase Novolog SS coverage QACHS Novolog to be given only once food is in the room and pt is ready to eat. Discussed with RN to inform night RN about the same. Teach pt's to monitor glucose and inject Insulin as he will need to go home on Insulin in view of recurrent DKA. Discussed with RN. Admitted on 11.08.16 with DKA also. Further management as per medical team.
[2017-08-21] MEDS ORDERED: INSULIN (NOVOLOG) ASPART 100 UNITS/ML 10ML VIAL ONE (20:31)
[2017-08-21] MEDS: OLANZapine 5 MG TABLET PO SCH (21:51)
[2017-08-21] MEDS: THIAMINE HCL 100 MG TABLET (FP) PO SCH (21:51)
[2017-08-21] MEDS: NIFEdipine E.R. 30 MG TABLET (FP) PO SCH (21:51)
[2017-08-21] MEDS ORDERED: INSULIN DETEMIR 100 UNITS/ML MDV SQ SCH (22:00)
--- NOTE | 2017-08-21 23:36 | PN ---
Progress Note, Physician - Current Medication List Current Medications: Active Medications Amlodipine Besylate (Norvasc -) 5 mg PO DAILY [facility] Last Admin: 08/21/17 09:13 Dose: 5 mg Aspirin (Asa -) 81 mg PO DAILY [facility] Last Admin: 08/21/17 09:13 Dose: 81 mg Folic Acid (Folic Acid -) 1 mg PO DAILY [facility] Last Admin: 08/21/17 09:13 Dose: 1 mg Heparin Sodium (Porcine) (Heparin -) 5,000 unit SQ TID [facility] Last Admin: 08/21/17 21:42 Dose: 5,000 unit Hydrochlorothiazide (Hctz -) 12.5 mg PO DAILY [facility] Last Admin: 08/21/17 09:12 Dose: 12.5 mg Insulin Aspart (Novolog Vial Sliding Scale -) 1 vial SQ [facility] PRN Reason: Protocol Last Admin: 08/21/17 21:41 Dose: Not Given Insulin Aspart (Novolog Vial Sliding Scale -) 1 vial SQ TIDAC [facility] PRN Reason: Protocol Last Admin: 08/21/17 17:28 Dose: 6 units Insulin Detemir (Levemir Vial) 16 units SQ [facility] Last Admin: 08/21/17 21:43 Dose: 16 unit Lisinopril (Prinivil) 20 mg PO DAILY [facility] Last Admin: 08/21/17 09:13 Dose: 20 mg Methadone HCl (Dolophine -) 10 mg PO DAILY@0600 [facility] Last Admin: 08/21/17 05:50 Dose: 10 mg Nifedipine (Procardia Xl -) 30 mg PO [facility] Last Admin: 08/21/17 21:51 Dose: 30 mg Olanzapine (Zyprexa -) 5 mg PO [facility] Last Admin: 08/21/17 21:51 Dose: 5 mg Multivit/Folic Acid/Iron ( Vitamins (Sjr) -) 1 tab PO DAILY [facility] Last Admin: 08/21/17 09:56 Dose: 1 tab Ranolazine (Ranexa -) 500 mg PO DAILY [facility] Last Admin: 08/21/17 09:13 Dose: 500 mg Thiamine HCl (Vitamin B1 -) 100 mg PO [facility] Last Admin: 08/21/17 21:51 Dose: 100 mg - Objective Vital Signs: Vital Signs Temperature 98 F 08/21/17 18:15 Pulse Rate 115 H 08/21/17 18:15 Respiratory Rate 20 08/21/17 18:15 Blood Pressure 122/83 08/21/17 18:15 O2 Sat by Pulse Oximetry (%) 99 08/21/17 09:00 Labs: CBC, BMP 08/20/17 07:00 08/20/17 07:00 Problem List - Problems (1) Lethargy Code(s): R53.83 - OTHER FATIGUE (2) DKA (diabetic ketoacidosis) Code(s): E13.10 - OTH DIABETES MELLITUS WITH KETOACIDOSIS WITHOUT COMA Qualifiers: Diabetes mellitus type: due to underlying condition Diabetes mellitus complication detail: with coma Qualified Code(s): E08.11 - Diabetes mellitus due to underlying condition with ketoacidosis with coma (3) HTN (hypertension) Code(s): I10 - ESSENTIAL (PRIMARY) HYPERTENSION (4) Substance abuse Code(s): F19.10 - OTHER PSYCHOACTIVE SUBSTANCE ABUSE, UNCOMPLICATED (5) HIV (human immunodeficiency virus infection) Code(s): Z21 - ASYMPTOMATIC HUMAN IMMUNODEFICIENCY VIRUS INFECTION STATUS
[2017-08-22 05:54] VITALS: PULSE 92
[2017-08-22] MEDS: HEPARIN NA (PORCINE) 5,000 UNITS/ML 1ML VIAL SQ SCH ×2 (06:55→13:52)
[2017-08-22] MEDS: INSULIN SLIDING SCALE (NOVOLOG) 1 VIAL SQ SCH ×3 (06:55→17:03)
[2017-08-22] MEDS: METHADONE HCL 10 MG TABLET PO SCH (06:56)
[2017-08-22 10:33] VITALS: BP 112/74; TEMP 98.4
[2017-08-22] MEDS ORDERED: PT OWN MED DRAWER 7, Y5N ONE ×2 (10:36→10:58)
[2017-08-22] MEDS: ASPIRIN 81 MG CHEWABLE TABLETS PO SCH (10:37)
[2017-08-22] MEDS: FOLIC ACID 1 MG TABLET (FP) PO SCH (10:37)
[2017-08-22] MEDS: RANOLAZINE E.R. 500 MG TABLET (FP) PO SCH (10:38)
[2017-08-22] MEDS: LISINOPRIL 20 MG TABLET (FP) PO SCH (10:38)
[2017-08-22] MEDS: amLODIPine BESYLATE 5 MG TABLET (FP) PO SCH (10:38)
[2017-08-22] MEDS: PRENATAL VITAMINS W/ FOLIC ACID TABLET (FP) PO SCH (10:38)
[2017-08-22] MEDS: HYDROCHLOROTHIAZIDE 12.5 MG CAPSULE (FP) PO SCH (10:38)
--- NOTE | 2017-08-22 10:50 | PN ---
[facility] Progress Note (SOAP) Subjective: patient getting out of bed after 10mg methadone dose, still v weak, requesting increase in dose regular dose 60mg daily reportedly Objective: 08/22/17 10:46 Vital Signs - 24 hr 08/21/17 08/21/17 08/21/17 15:30 18:15 21:00 Temperature 99.3 F 98 F Pulse Rate 118 H 115 H Respiratory 18 20 20 Rate Blood Pressure 107/73 122/83 O2 Sat by Pulse 99 Oximetry (%) 08/21/17 08/22/17 08/22/17 22:00 05:52 10:00 Temperature 98 F 97.7 F 98.4 F Pulse Rate 110 H 92 H 92 H Respiratory 20 20 20 Rate Blood Pressure 109/84 125/70 112/74 O2 Sat by Pulse Oximetry (%) Laboratory Tests 08/13/17 08/13/17 08/13/17 07:01 07:15 07:15 WBC 14.6 H D RBC 4.25 D Hgb 12.3 D Hct 40.5 D MCV 95.3 MCH 29.0 MCHC 30.4 L RDW 15.6 Plt Count 185 MPV 10.2 D Neutrophils % 81.9 D Lymphocytes % 12.0 D Monocytes % 5.7 Eosinophils % 0.0 D Basophils % 0.4 VBG pH 6.99 L* POC VBG pCO2 35.3 L POC VBG pO2 66.1 H Mixed VBG HCO3 8.1 L* Sodium Potassium Chloride Carbon Dioxide Anion Gap BUN Creatinine Creat Clearance w eGFR POC Glucometer > 400 Random Glucose Lactic Acid Calcium Phosphorus Magnesium Total Bilirubin AST ALT Alkaline Phosphatase Ammonia Creatine Kinase Troponin I Total Protein Albumin Vitamin B12 TSH Urine Color Urine Appearance Urine pH Ur Specific [place] Urine Protein Urine Glucose (UA) Urine Ketones Urine Blood Urine Nitrite Urine Bilirubin Urine Urobilinogen Ur Leukocyte Esterase Urine WBC (Auto) Urine RBC (Auto) Urine Bacteria Granular Casts Urine Mucus Salicylates Opiates Screen Methadone Screen Acetaminophen Barbiturate Screen Phencyclidine Screen Ur Amphetamines Screen MDMA (Ecstasy) Screen Benzodiazepines Screen Cocaine Screen U Marijuana (THC) Screen Alcohol, Quantitative Acetone, Qual RPR Titer T.pallidum Ab ([facility]) 08/13/17 08/13/17 08/13/17 07:15 07:15 07:40 WBC RBC Hgb Hct MCV MCH MCHC RDW Plt Count MPV Neutrophils % Lymphocytes % Monocytes % Eosinophils % Basophils % VBG pH POC VBG pCO2 POC VBG pO2 Mixed VBG HCO3 Sodium Potassium Chloride Carbon Dioxide Anion Gap BUN Creatinine Creat Clearance w eGFR POC Glucometer Random Glucose Lactic Acid 8.3 H* Calcium Phosphorus Magnesium Total Bilirubin AST ALT Alkaline Phosphatase Ammonia Creatine Kinase Troponin I < 0.02 D Total Protein Albumin Vitamin B12 TSH Urine Color L[place]ellow Urine Appearance Slcloudy Urine pH 5.0 Ur Specific [place] 1.021 Urine Protein Negative Urine Glucose (UA) 3+ H Urine Ketones 2+ H Urine Blood 1+ H Urine Nitrite Negative Urine Bilirubin Negative Urine Urobilinogen Negative Ur Leukocyte Esterase Negative Urine WBC (Auto) 2 Urine RBC (Auto) 3 Urine Bacteria Rare Granular Casts 26 Urine Mucus Rare Salicylates Opiates Screen Methadone Screen Acetaminophen Barbiturate Screen Phencyclidine Screen Ur Amphetamines Screen MDMA (Ecstasy) Screen Benzodiazepines Screen Cocaine Screen U Marijuana (THC) Screen Alcohol, Quantitative Acetone, Qual RPR Titer T.pallidum Ab ([facility]) 08/13/17 08/13/17 08/13/17 07:40 08:17 08:17 WBC RBC Hgb Hct MCV MCH MCHC RDW Plt Count MPV Neutrophils % Lymphocytes % Monocytes % Eosinophils % Basophils % VBG pH POC VBG pCO2 POC VBG pO2 Mixed VBG HCO3 Sodium 131 L Potassium 5.3 H D Chloride 92 L D Carbon Dioxide 10 L D Anion Gap 29 H BUN 30 H D Creatinine 2.0 H D Creat Clearance w eGFR 33.49 POC Glucometer Random Glucose 715 H* D Lactic Acid Calcium 10.0 D Phosphorus 8.0 H D Magnesium 2.6 H D Total Bilirubin 0.9 D AST 22 D ALT 20 Alkaline Phosphatase 104 D Ammonia Creatine Kinase 91 Troponin I < 0.02 Total Protein 8.6 H D Albumin 4.2 D Vitamin B12 TSH Urine Color Urine Appearance Urine pH Ur Specific [place] Urine Protein Urine Glucose (UA) Urine Ketones Urine Blood Urine Nitrite Urine Bilirubin Urine Urobilinogen Ur Leukocyte Esterase Urine WBC (Auto) Urine RBC (Auto) Urine Bacteria Granular Casts Urine Mucus Salicylates 4.384 Opiates Screen Positive Methadone Screen Positive Acetaminophen 2.793 L Barbiturate Screen Negative Phencyclidine Screen Negative Ur Amphetamines Screen Negative MDMA (Ecstasy) Screen Negative Benzodiazepines Screen Negative Cocaine Screen Negative U Marijuana (THC) Screen Negative Alcohol, Quantitative < 5.0 Acetone, Qual RPR Titer T.pallidum Ab ([facility]) 08/13/17 08/13/17 08/13/17 09:00 09:40 10:29 WBC RBC Hgb Hct MCV MCH MCHC RDW Plt Count MPV Neutrophils % Lymphocytes % Monocytes % Eosinophils % Basophils % VBG pH POC VBG pCO2 POC VBG pO2 Mixed VBG HCO3 Sodium Potassium Chloride Carbon Dioxide Anion Gap BUN Creatinine Creat Clearance w eGFR POC Glucometer > 400 Random Glucose Lactic Acid 5.2 H* Calcium Phosphorus Magnesium Total Bilirubin AST ALT Alkaline Phosphatase Ammonia Creatine Kinase Troponin I Total Protein Albumin Vitamin B12 TSH Urine Color Urine Appearance Urine pH Ur Specific [place] Urine Protein Urine Glucose (UA) Urine Ketones Urine Blood Urine Nitrite Urine Bilirubin Urine Urobilinogen Ur Leukocyte Esterase Urine WBC (Auto) Urine RBC (Auto) Urine Bacteria Granular Casts Urine Mucus Salicylates Opiates Screen Methadone Screen Acetaminophen Barbiturate Screen Phencyclidine Screen Ur Amphetamines Screen MDMA (Ecstasy) Screen Benzodiazepines Screen Cocaine Screen U Marijuana (THC) Screen Alcohol, Quantitative Acetone, Qual Positive moderate 2+ RPR Titer T.pallidum Ab ([facility]) 08/13/17 08/13/17 08/13/17 11:35 11:55 11:55 WBC RBC Hgb Hct MCV MCH MCHC RDW Plt Count MPV Neutrophils % Lymphocytes % Monocytes % Eosinophils % Basophils % VBG pH POC VBG pCO2 POC VBG pO2 Mixed VBG HCO3 Sodium 141 Potassium 3.9 D Chloride 109 H D Carbon Dioxide 10 L Anion Gap 22 H BUN 29 H Creatinine 1.8 H Creat Clearance w eGFR POC Glucometer > 400 Random Glucose 484 H* D Lactic Acid 2.1 H* Calcium 7.9 L D Phosphorus Magnesium Total Bilirubin AST ALT Alkaline Phosphatase Ammonia Creatine Kinase Troponin I Total Protein Albumin Vitamin B12 TSH Urine Color Urine Appearance Urine pH Ur Specific [place] Urine Protein Urine Glucose (UA) Urine Ketones Urine Blood Urine Nitrite Urine Bilirubin Urine Urobilinogen Ur Leukocyte Esterase Urine WBC (Auto) Urine RBC (Auto) Urine Bacteria Granular Casts Urine Mucus Salicylates Opiates Screen Methadone Screen Acetaminophen Barbiturate Screen Phencyclidine Screen Ur Amphetamines Screen MDMA (Ecstasy) Screen Benzodiazepines Screen Cocaine Screen U Marijuana (THC) Screen Alcohol, Quantitative Acetone, Qual RPR Titer T.pallidum Ab ([facility]) 08/13/17 08/13/1718 12:45 13:43 14:53 WBC RBC Hgb Hct MCV MCH MCHC RDW Plt Count MPV Neutrophils % Lymphocytes % Monocytes % Eosinophils % Basophils % VBG pH POC VBG pCO2 POC VBG pO2 Mixed VBG HCO3 Sodium Potassium Chloride Carbon Dioxide Anion Gap BUN Creatinine Creat Clearance w eGFR POC Glucometer > 400 > 400 290.79399 Random Glucose Lactic Acid Calcium Phosphorus Magnesium Total Bilirubin AST ALT Alkaline Phosphatase Ammonia Creatine Kinase Troponin I Total Protein Albumin Vitamin B12 TSH Urine Color Urine Appearance Urine pH Ur Specific [place] Urine Protein Urine Glucose (UA) Urine Ketones Urine Blood Urine Nitrite Urine Bilirubin Urine Urobilinogen Ur Leukocyte Esterase Urine WBC (Auto) Urine RBC (Auto) Urine Bacteria Granular Casts Urine Mucus Salicylates Opiates Screen Methadone Screen Acetaminophen Barbiturate Screen Phencyclidine Screen Ur Amphetamines Screen MDMA (Ecstasy) Screen Benzodiazepines Screen Cocaine Screen U Marijuana (THC) Screen Alcohol, Quantitative Acetone, Qual RPR Titer T.pallidum Ab ([facility]) 08/13/17 08/13/17 08/13/17 16:23 18:02 18:40 WBC RBC Hgb Hct MCV MCH MCHC RDW Plt Count MPV Neutrophils % Lymphocytes % Monocytes % Eosinophils % Basophils % VBG pH POC VBG pCO2 POC VBG pO2 Mixed VBG HCO3 Sodium 144 Potassium 3.7 Chloride 114 H Carbon Dioxide 22 D Anion Gap 8 BUN 25 H Creatinine 1.5 H Creat Clearance w eGFR 46.68 POC Glucometer 322.71603 253.55169 Random Glucose 190 H D Lactic Acid Calcium 8.0 L Phosphorus Magnesium Total Bilirubin 0.5 D AST 18 ALT 18 Alkaline Phosphatase 76 D Ammonia Creatine Kinase Troponin I Total Protein 6.9 Albumin 3.4 Vitamin B12 TSH Urine Color Urine Appearance Urine pH Ur Specific [place] Urine Protein Urine Glucose (UA) Urine Ketones Urine Blood Urine Nitrite Urine Bilirubin Urine Urobilinogen Ur Leukocyte Esterase Urine WBC (Auto) Urine RBC (Auto) Urine Bacteria Granular Casts Urine Mucus Salicylates Opiates Screen Methadone Screen Acetaminophen Barbiturate Screen Phencyclidine Screen Ur Amphetamines Screen MDMA (Ecstasy) Screen Benzodiazepines Screen Cocaine Screen U Marijuana (THC) Screen Alcohol, Quantitative Acetone, Qual RPR Titer T.pallidum Ab ([facility]) 08/13/17 08/13/17 08/13/17 18:58 20:31 21:48 WBC RBC Hgb Hct MCV MCH MCHC RDW Plt Count MPV Neutrophils % Lymphocytes % Monocytes % Eosinophils % Basophils % VBG pH POC VBG pCO2 POC VBG pO2 Mixed VBG HCO3 Sodium Potassium Chloride Carbon Dioxide Anion Gap BUN Creatinine Creat Clearance w eGFR POC Glucometer 243.87946 163.29574 135.04828 Random Glucose Lactic Acid Calcium Phosphorus Magnesium Total Bilirubin AST ALT Alkaline Phosphatase Ammonia Creatine Kinase Troponin I Total Protein Albumin Vitamin B12 TSH Urine Color Urine Appearance Urine pH Ur Specific [place] Urine Protein Urine Glucose (UA) Urine Ketones Urine Blood Urine Nitrite Urine Bilirubin Urine Urobilinogen Ur Leukocyte Esterase Urine WBC (Auto) Urine RBC (Auto) Urine Bacteria Granular Casts Urine Mucus Salicylates Opiates Screen Methadone Screen Acetaminophen Barbiturate Screen Phencyclidine Screen Ur Amphetamines Screen MDMA (Ecstasy) Screen Benzodiazepines Screen Cocaine Screen U Marijuana (THC) Screen Alcohol, Quantitative Acetone, Qual RPR Titer T.pallidum Ab ([facility]) 08/13/17 08/14/17 08/14/17 23:58 02:03 04:11 WBC RBC Hgb Hct MCV MCH MCHC RDW Plt Count MPV Neutrophils % Lymphocytes % Monocytes % Eosinophils % Basophils % VBG pH POC VBG pCO2 POC VBG pO2 Mixed VBG HCO3 Sodium Potassium Chloride Carbon Dioxide Anion Gap BUN Creatinine Creat Clearance w eGFR POC Glucometer 128.98342 139.58792 153.82120 Random Glucose Lactic Acid Calcium Phosphorus Magnesium Total Bilirubin AST ALT Alkaline Phosphatase Ammonia Creatine Kinase Troponin I Total Protein Albumin Vitamin B12 TSH Urine Color Urine Appearance Urine pH Ur Specific [place] Urine Protein Urine Glucose (UA) Urine Ketones Urine Blood Urine Nitrite Urine Bilirubin Urine Urobilinogen Ur Leukocyte Esterase Urine WBC (Auto) Urine RBC (Auto) Urine Bacteria Granular Casts Urine Mucus Salicylates Opiates Screen Methadone Screen Acetaminophen Barbiturate Screen Phencyclidine Screen Ur Amphetamines Screen MDMA (Ecstasy) Screen Benzodiazepines Screen Cocaine Screen U Marijuana (THC) Screen Alcohol, Quantitative Acetone, Qual RPR Titer T.pallidum Ab ([facility]) 08/14/17 08/14/17 08/14/17 05:15 05:15 05:15 WBC 13.0 H RBC 3.59 L Hgb 10.6 L D Hct 32.2 L D MCV 89.9 MCH 29.5 MCHC 32.8 RDW 14.8 Plt Count 142 D MPV 9.7 Neutrophils % 85.1 H Lymphocytes % 9.0 D Monocytes % 5.4 Eosinophils % 0.0 Basophils % 0.5 VBG pH POC VBG pCO2 POC VBG pO2 Mixed VBG HCO3 Sodium 143 Potassium 3.8 Chloride 111 H Carbon Dioxide 17 L D Anion Gap 15 BUN 17 D Creatinine 1.0 D Creat Clearance w eGFR > 60 POC Glucometer Random Glucose 205 H Lactic Acid Calcium 8.4 L Phosphorus Magnesium Total Bilirubin 0.9 D AST 46 H D ALT 23 D Alkaline Phosphatase 74 Ammonia Creatine Kinase Troponin I Total Protein 6.8 Albumin 3.3 L Vitamin B12 TSH Urine Color Urine Appearance Urine pH Ur Specific [place] Urine Protein Urine Glucose (UA) Urine Ketones Urine Blood Urine Nitrite Urine Bilirubin Urine Urobilinogen Ur Leukocyte Esterase Urine WBC (Auto) Urine RBC (Auto) Urine Bacteria Granular Casts Urine Mucus Salicylates Opiates Screen Methadone Screen Acetaminophen Barbiturate Screen Phencyclidine Screen Ur Amphetamines Screen MDMA (Ecstasy) Screen Benzodiazepines Screen Cocaine Screen U Marijuana (THC) Screen Alcohol, Quantitative Acetone, Qual Positive moderate 2+ RPR Titer T.pallidum Ab ([facility]) 08/14/17 08/14/17 08/14/17 06:39 08:25 09:44 WBC RBC Hgb Hct MCV MCH MCHC RDW Plt Count MPV Neutrophils % Lymphocytes % Monocytes % Eosinophils % Basophils % VBG pH POC VBG pCO2 POC VBG pO2 Mixed VBG HCO3 Sodium Potassium Chloride Carbon Dioxide Anion Gap BUN Creatinine Creat Clearance w eGFR POC Glucometer 200.56589 261.28599 252.61584 Random Glucose Lactic Acid Calcium Phosphorus Magnesium Total Bilirubin AST ALT Alkaline Phosphatase Ammonia Creatine Kinase Troponin I Total Protein Albumin Vitamin B12 TSH Urine Color Urine Appearance Urine pH Ur Specific [place] Urine Protein Urine Glucose (UA) Urine Ketones Urine Blood Urine Nitrite Urine Bilirubin Urine Urobilinogen Ur Leukocyte Esterase Urine WBC (Auto) Urine RBC (Auto) Urine Bacteria Granular Casts Urine Mucus Salicylates Opiates Screen Methadone Screen Acetaminophen Barbiturate Screen Phencyclidine Screen Ur Amphetamines Screen MDMA (Ecstasy) Screen Benzodiazepines Screen Cocaine Screen U Marijuana (THC) Screen Alcohol, Quantitative Acetone, Qual RPR Titer T.pallidum Ab ([facility]) 08/14/17 08/14/17 08/14/17 10:40 11:13 12:13 WBC RBC Hgb Hct MCV MCH MCHC RDW Plt Count MPV Neutrophils % Lymphocytes % Monocytes % Eosinophils % Basophils % VBG pH POC VBG pCO2 POC VBG pO2 Mixed VBG HCO3 Sodium 141 Potassium 5.1 D Chloride 110 H Carbon Dioxide 16 L Anion Gap 15 BUN 15 Creatinine 1.2 Creat Clearance w eGFR POC Glucometer 208.88940 191.91926 Random Glucose 194 H Lactic Acid Calcium 8.6 Phosphorus Magnesium Total Bilirubin AST ALT Alkaline Phosphatase Ammonia Creatine Kinase Troponin I Total Protein Albumin Vitamin B12 TSH Urine Color Urine Appearance Urine pH Ur Specific [place] Urine Protein Urine Glucose (UA) Urine Ketones Urine Blood Urine Nitrite Urine Bilirubin Urine Urobilinogen Ur Leukocyte Esterase Urine WBC (Auto) Urine RBC (Auto) Urine Bacteria Granular Casts Urine Mucus Salicylates Opiates Screen Methadone Screen Acetaminophen Barbiturate Screen Phencyclidine Screen Ur Amphetamines Screen MDMA (Ecstasy) Screen Benzodiazepines Screen Cocaine Screen U Marijuana (THC) Screen Alcohol, Quantitative Acetone, Qual RPR Titer T.pallidum Ab ([facility]) 08/14/17 08/14/17 08/14/17 14:09 15:00 15:21 WBC RBC Hgb Hct MCV MCH MCHC RDW Plt Count MPV Neutrophils % Lymphocytes % Monocytes % Eosinophils % Basophils % VBG pH POC VBG pCO2 POC VBG pO2 Mixed VBG HCO3 Sodium 144 Potassium 3.2 L D Chloride 110 H Carbon Dioxide 26 D Anion Gap 8 BUN 12 Creatinine 1.0 Creat Clearance w eGFR POC Glucometer 134.95727 107.45951 Random Glucose 92 D Lactic Acid Calcium 8.6 Phosphorus Magnesium Total Bilirubin AST ALT Alkaline Phosphatase Ammonia Creatine Kinase Troponin I Total Protein Albumin Vitamin B12 TSH Urine Color Urine Appearance Urine pH Ur Specific [place] Urine Protein Urine Glucose (UA) Urine Ketones Urine Blood Urine Nitrite Urine Bilirubin Urine Urobilinogen Ur Leukocyte Esterase Urine WBC (Auto) Urine RBC (Auto) Urine Bacteria Granular Casts Urine Mucus Salicylates Opiates Screen Methadone Screen Acetaminophen Barbiturate Screen Phencyclidine Screen Ur Amphetamines Screen MDMA (Ecstasy) Screen Benzodiazepines Screen Cocaine Screen U Marijuana (THC) Screen Alcohol, Quantitative Acetone, Qual RPR Titer T.pallidum Ab ([facility]) 08/14/17 08/14/17 08/14/17 16:12 16:24 17:18 WBC RBC Hgb Hct MCV MCH MCHC RDW Plt Count MPV Neutrophils % Lymphocytes % Monocytes % Eosinophils % Basophils % VBG pH POC VBG pCO2 POC VBG pO2 Mixed VBG HCO3 Sodium Potassium Chloride Carbon Dioxide Anion Gap BUN Creatinine Creat Clearance w eGFR POC Glucometer 53.46342 92.27191 50.57671 Random Glucose Lactic Acid Calcium Phosphorus Magnesium Total Bilirubin AST ALT Alkaline Phosphatase Ammonia Creatine Kinase Troponin I Total Protein Albumin Vitamin B12 TSH Urine Color Urine Appearance Urine pH Ur Specific [place] Urine Protein Urine Glucose (UA) Urine Ketones Urine Blood Urine Nitrite Urine Bilirubin Urine Urobilinogen Ur Leukocyte Esterase Urine WBC (Auto) Urine RBC (Auto) Urine Bacteria Granular Casts Urine Mucus Salicylates Opiates Screen Methadone Screen Acetaminophen Barbiturate Screen Phencyclidine Screen Ur Amphetamines Screen MDMA (Ecstasy) Screen Benzodiazepines Screen Cocaine Screen U Marijuana (THC) Screen Alcohol, Quantitative Acetone, Qual RPR Titer T.pallidum Ab ([facility]) 08/14/17 08/14/17 08/14/17 17:29 18:19 19:45 WBC RBC Hgb Hct MCV MCH MCHC RDW Plt Count MPV Neutrophils % Lymphocytes % Monocytes % Eosinophils % Basophils % VBG pH POC VBG pCO2 POC VBG pO2 Mixed VBG HCO3 Sodium 139 Potassium 3.7 Chloride 105 Carbon Dioxide 22 Anion Gap 12 BUN 10 Creatinine 1.0 Creat Clearance w eGFR POC Glucometer 124.69310 216.51693 Random Glucose 166 H D Lactic Acid Calcium 8.7 Phosphorus 1.8 L D Magnesium 1.8 D Total Bilirubin AST ALT Alkaline Phosphatase Ammonia Creatine Kinase Troponin I Total Protein Albumin Vitamin B12 TSH Urine Color Urine Appearance Urine pH Ur Specific [place] Urine Protein Urine Glucose (UA) Urine Ketones Urine Blood Urine Nitrite Urine Bilirubin Urine Urobilinogen Ur Leukocyte Esterase Urine WBC (Auto) Urine RBC (Auto) Urine Bacteria Granular Casts Urine Mucus Salicylates Opiates Screen Methadone Screen Acetaminophen Barbiturate Screen Phencyclidine Screen Ur Amphetamines Screen MDMA (Ecstasy) Screen Benzodiazepines Screen Cocaine Screen U Marijuana (THC) Screen Alcohol, Quantitative Acetone, Qual RPR Titer T.pallidum Ab ([facility]) 08/14/17 08/15/17 08/15/17 22:26 00:27 02:03 WBC RBC Hgb Hct MCV MCH MCHC RDW Plt Count MPV Neutrophils % Lymphocytes % Monocytes % Eosinophils % Basophils % VBG pH POC VBG pCO2 POC VBG pO2 Mixed VBG HCO3 Sodium Potassium Chloride Carbon Dioxide Anion Gap BUN Creatinine Creat Clearance w eGFR POC Glucometer 287.37904 342.97675 337.35184 Random Glucose Lactic Acid Calcium Phosphorus Magnesium Total Bilirubin AST ALT Alkaline Phosphatase Ammonia Creatine Kinase Troponin I Total Protein Albumin Vitamin B12 TSH Urine Color Urine Appearance Urine pH Ur Specific [place] Urine Protein Urine Glucose (UA) Urine Ketones Urine Blood Urine Nitrite Urine Bilirubin Urine Urobilinogen Ur Leukocyte Esterase Urine WBC (Auto) Urine RBC (Auto) Urine Bacteria Granular Casts Urine Mucus Salicylates Opiates Screen Methadone Screen Acetaminophen Barbiturate Screen Phencyclidine Screen Ur Amphetamines Screen MDMA (Ecstasy) Screen Benzodiazepines Screen Cocaine Screen U Marijuana (THC) Screen Alcohol, Quantitative Acetone, Qual RPR Titer T.pallidum Ab ([facility]) 08/15/17 08/15/17 08/15/17 04:04 05:05 05:05 WBC 10.8 H RBC 4.07 Hgb 12.2 D Hct 36.0 MCV 88.4 MCH 29.9 MCHC 33.8 RDW 15.0 Plt Count 130 L MPV 9.5 Neutrophils % 76.7 Lymphocytes % 15.7 D Monocytes % 7.1 Eosinophils % 0.0 Basophils % 0.5 VBG pH POC VBG pCO2 POC VBG pO2 Mixed VBG HCO3 Sodium 139 Potassium 3.1 L Chloride 103 Carbon Dioxide 28 D Anion Gap 8 BUN 8 Creatinine 0.9 Creat Clearance w eGFR > 60 POC Glucometer 179.92447 Random Glucose 60 L D Lactic Acid Calcium 8.7 Phosphorus 1.6 L Magnesium 2.2 D Total Bilirubin 1.7 H D AST 48 H ALT 25 Alkaline Phosphatase 89 D Ammonia Creatine Kinase Troponin I Total Protein 7.6 Albumin 3.7 Vitamin B12 TSH 0.79 D Urine Color Urine Appearance Urine pH Ur Specific [place] Urine Protein Urine Glucose (UA) Urine Ketones Urine Blood Urine Nitrite Urine Bilirubin Urine Urobilinogen Ur Leukocyte Esterase Urine WBC (Auto) Urine RBC (Auto) Urine Bacteria Granular Casts Urine Mucus Salicylates Opiates Screen Methadone Screen Acetaminophen Barbiturate Screen Phencyclidine Screen Ur Amphetamines Screen MDMA (Ecstasy) Screen Benzodiazepines Screen Cocaine Screen U Marijuana (THC) Screen Alcohol, Quantitative Acetone, Qual RPR Titer T.pallidum Ab ([facility]) 08/15/17 08/15/17 08/15/17 05:05 05:05 05:05 WBC RBC Hgb Hct MCV MCH MCHC RDW Plt Count MPV Neutrophils % Lymphocytes % Monocytes % Eosinophils % Basophils % VBG pH POC VBG pCO2 POC VBG pO2 Mixed VBG HCO3 Sodium Potassium Chloride Carbon Dioxide Anion Gap BUN Creatinine Creat Clearance w eGFR POC Glucometer Random Glucose Lactic Acid Calcium Phosphorus Magnesium Total Bilirubin AST ALT Alkaline Phosphatase Ammonia 25.38 Creatine Kinase Troponin I Total Protein Albumin Vitamin B12 999 H TSH Urine Color Urine Appearance Urine pH Ur Specific [place] Urine Protein Urine Glucose (UA) Urine Ketones Urine Blood Urine Nitrite Urine Bilirubin Urine Urobilinogen Ur Leukocyte Esterase Urine WBC (Auto) Urine RBC (Auto) Urine Bacteria Granular Casts Urine Mucus Salicylates Opiates Screen Methadone Screen Acetaminophen Barbiturate Screen Phencyclidine Screen Ur Amphetamines Screen MDMA (Ecstasy) Screen Benzodiazepines Screen Cocaine Screen U Marijuana (THC) Screen Alcohol, Quantitative Acetone, Qual RPR Titer Reactive 1:1 H T.pallidum Ab ([facility]) Non reactive 08/15/17 08/15/17 08/15/17 05:51 08:07 10:31 WBC RBC Hgb Hct MCV MCH MCHC RDW Plt Count MPV Neutrophils % Lymphocytes % Monocytes % Eosinophils % Basophils % VBG pH POC VBG pCO2 POC VBG pO2 Mixed VBG HCO3 Sodium Potassium Chloride Carbon Dioxide Anion Gap BUN Creatinine Creat Clearance w eGFR POC Glucometer 88.00104 82.80256 85.58893 Random Glucose Lactic Acid Calcium Phosphorus Magnesium Total Bilirubin AST ALT Alkaline Phosphatase Ammonia Creatine Kinase Troponin I Total Protein Albumin Vitamin B12 TSH Urine Color Urine Appearance Urine pH Ur Specific [place] Urine Protein Urine Glucose (UA) Urine Ketones Urine Blood Urine Nitrite Urine Bilirubin Urine Urobilinogen Ur Leukocyte Esterase Urine WBC (Auto) Urine RBC (Auto) Urine Bacteria Granular Casts Urine Mucus Salicylates Opiates Screen Methadone Screen Acetaminophen Barbiturate Screen Phencyclidine Screen Ur Amphetamines Screen MDMA (Ecstasy) Screen Benzodiazepines Screen Cocaine Screen U Marijuana (THC) Screen Alcohol, Quantitative Acetone, Qual RPR Titer T.pallidum Ab ([facility]) 08/15/17 08/15/17 08/15/17 12:55 14:48 16:55 WBC RBC Hgb Hct MCV MCH MCHC RDW Plt Count MPV Neutrophils % Lymphocytes % Monocytes % Eosinophils % Basophils % VBG pH POC VBG pCO2 POC VBG pO2 Mixed VBG HCO3 Sodium Potassium Chloride Carbon Dioxide Anion Gap BUN Creatinine Creat Clearance w eGFR POC Glucometer 253.05479 145.45226 163.90766 Random Glucose Lactic Acid Calcium Phosphorus Magnesium Total Bilirubin AST ALT Alkaline Phosphatase Ammonia Creatine Kinase Troponin I Total Protein Albumin Vitamin B12 TSH Urine Color Urine Appearance Urine pH Ur Specific [place] Urine Protein Urine Glucose (UA) Urine Ketones Urine Blood Urine Nitrite Urine Bilirubin Urine Urobilinogen Ur Leukocyte Esterase Urine WBC (Auto) Urine RBC (Auto) Urine Bacteria Granular Casts Urine Mucus Salicylates Opiates Screen Methadone Screen Acetaminophen Barbiturate Screen Phencyclidine Screen Ur Amphetamines Screen MDMA (Ecstasy) Screen Benzodiazepines Screen Cocaine Screen U Marijuana (THC) Screen Alcohol, Quantitative Acetone, Qual RPR Titer T.pallidum Ab ([facility]) 08/15/17 08/15/17 08/16/17 17:55 21:41 05:43 WBC RBC Hgb Hct MCV MCH MCHC RDW Plt Count MPV Neutrophils % Lymphocytes % Monocytes % Eosinophils % Basophils % VBG pH POC VBG pCO2 POC VBG pO2 Mixed VBG HCO3 Sodium Potassium Chloride Carbon Dioxide Anion Gap BUN Creatinine Creat Clearance w eGFR POC Glucometer 161.21566 280.53516 296 Random Glucose Lactic Acid Calcium Phosphorus Magnesium Total Bilirubin AST ALT Alkaline Phosphatase Ammonia Creatine Kinase Troponin I Total Protein Albumin Vitamin B12 TSH Urine Color Urine Appearance Urine pH Ur Specific [place] Urine Protein Urine Glucose (UA) Urine Ketones Urine Blood Urine Nitrite Urine Bilirubin Urine Urobilinogen Ur Leukocyte Esterase Urine WBC (Auto) Urine RBC (Auto) Urine Bacteria Granular Casts Urine Mucus Salicylates Opiates Screen Methadone Screen Acetaminophen Barbiturate Screen Phencyclidine Screen Ur Amphetamines Screen MDMA (Ecstasy) Screen Benzodiazepines Screen Cocaine Screen U Marijuana (THC) Screen Alcohol, Quantitative Acetone, Qual RPR Titer T.pallidum Ab ([facility]) 08/16/17 08/16/17 08/16/17 06:00 06:00 12:40 WBC 6.9 D RBC 4.07 Hgb 11.7 Hct 36.4 MCV 89.5 MCH 28.8 MCHC 32.2 RDW 14.9 Plt Count 106 L MPV 9.5 Neutrophils % 71.9 Lymphocytes % 20.6 D Monocytes % 7.0 Eosinophils % 0.1 D Basophils % 0.4 VBG pH POC VBG pCO2 POC VBG pO2 Mixed VBG HCO3 Sodium 137 Potassium 4.0 D Chloride 100 Carbon Dioxide 24 Anion Gap 13 BUN 11 D Creatinine 0.8 Creat Clearance w eGFR > 60 POC Glucometer 245 Random Glucose 273 H D Lactic Acid Calcium 8.5 Phosphorus Magnesium Total Bilirubin 1.5 H AST 30 D ALT 19 D Alkaline Phosphatase 87 Ammonia Creatine Kinase Troponin I Total Protein 7.0 Albumin 3.2 L Vitamin B12 TSH Urine Color Urine Appearance Urine pH Ur Specific [place] Urine Protein Urine Glucose (UA) Urine Ketones Urine Blood Urine Nitrite Urine Bilirubin Urine Urobilinogen Ur Leukocyte Esterase Urine WBC (Auto) Urine RBC (Auto) Urine Bacteria Granular Casts Urine Mucus Salicylates Opiates Screen Methadone Screen Acetaminophen Barbiturate Screen Phencyclidine Screen Ur Amphetamines Screen MDMA (Ecstasy) Screen Benzodiazepines Screen Cocaine Screen U Marijuana (THC) Screen Alcohol, Quantitative Acetone, Qual RPR Titer T.pallidum Ab ([facility]) 08/16/17 08/16/17 08/16/17 15:55 17:32 21:26 WBC RBC Hgb Hct MCV MCH MCHC RDW Plt Count MPV Neutrophils % Lymphocytes % Monocytes % Eosinophils % Basophils % VBG pH POC VBG pCO2 POC VBG pO2 Mixed VBG HCO3 Sodium Potassium Chloride Carbon Dioxide Anion Gap BUN Creatinine Creat Clearance w eGFR POC Glucometer 300 295 222 Random Glucose Lactic Acid Calcium Phosphorus Magnesium Total Bilirubin AST ALT Alkaline Phosphatase Ammonia Creatine Kinase Troponin I Total Protein Albumin Vitamin B12 TSH Urine Color Urine Appearance Urine pH Ur Specific [place] Urine Protein Urine Glucose (UA) Urine Ketones Urine Blood Urine Nitrite Urine Bilirubin Urine Urobilinogen Ur Leukocyte Esterase Urine WBC (Auto) Urine RBC (Auto) Urine Bacteria Granular Casts Urine Mucus Salicylates Opiates Screen Methadone Screen Acetaminophen Barbiturate Screen Phencyclidine Screen Ur Amphetamines Screen MDMA (Ecstasy) Screen Benzodiazepines Screen Cocaine Screen U Marijuana (THC) Screen Alcohol, Quantitative Acetone, Qual RPR Titer T.pallidum Ab ([facility]) 08/16/17 08/17/17 08/17/17 23:56 05:41 06:00 WBC 7.3 RBC 4.23 Hgb 12.1 Hct 37.8 MCV 89.3 MCH 28.7 MCHC 32.1 RDW 14.7 Plt Count 115 L MPV 10.3 Neutrophils % 65.5 Lymphocytes % 23.8 Monocytes % 10.0 Eosinophils % 0.2 D Basophils % 0.5 VBG pH POC VBG pCO2 POC VBG pO2 Mixed VBG HCO3 Sodium Potassium Chloride Carbon Dioxide Anion Gap BUN Creatinine Creat Clearance w eGFR POC Glucometer 198 102 Random Glucose Lactic Acid Calcium Phosphorus Magnesium Total Bilirubin AST ALT Alkaline Phosphatase Ammonia Creatine Kinase Troponin I Total Protein Albumin Vitamin B12 TSH Urine Color Urine Appearance Urine pH Ur Specific [place] Urine Protein Urine Glucose (UA) Urine Ketones Urine Blood Urine Nitrite Urine Bilirubin Urine Urobilinogen Ur Leukocyte Esterase Urine WBC (Auto) Urine RBC (Auto) Urine Bacteria Granular Casts Urine Mucus Salicylates Opiates Screen Methadone Screen Acetaminophen Barbiturate Screen Phencyclidine Screen Ur Amphetamines Screen MDMA (Ecstasy) Screen Benzodiazepines Screen Cocaine Screen U Marijuana (THC) Screen Alcohol, Quantitative Acetone, Qual RPR Titer T.pallidum Ab ([facility]) 08/17/17 08/17/17 08/17/17 06:00 09:52 12:27 WBC RBC Hgb Hct MCV MCH MCHC RDW Plt Count MPV Neutrophils % Lymphocytes % Monocytes % Eosinophils % Basophils % VBG pH POC VBG pCO2 POC VBG pO2 Mixed VBG HCO3 Sodium 140 Potassium 3.6 Chloride 103 Carbon Dioxide 23 Anion Gap 14 BUN 9 Creatinine 0.8 Creat Clearance w eGFR > 60 POC Glucometer 92 272 Random Glucose 78 D Lactic Acid Calcium 8.8 Phosphorus Magnesium Total Bilirubin 1.3 H AST 31 ALT 19 Alkaline Phosphatase 91 Ammonia Creatine Kinase Troponin I Total Protein 7.4 Albumin 3.4 Vitamin B12 TSH Urine Color Urine Appearance Urine pH Ur Specific [place] Urine Protein Urine Glucose (UA) Urine Ketones Urine Blood Urine Nitrite Urine Bilirubin Urine Urobilinogen Ur Leukocyte Esterase Urine WBC (Auto) Urine RBC (Auto) Urine Bacteria Granular Casts Urine Mucus Salicylates Opiates Screen Methadone Screen Acetaminophen Barbiturate Screen Phencyclidine Screen Ur Amphetamines Screen MDMA (Ecstasy) Screen Benzodiazepines Screen Cocaine Screen U Marijuana (THC) Screen Alcohol, Quantitative Acetone, Qual RPR Titer T.pallidum Ab ([facility]) 08/17/17 08/17/17 08/18/17 17:05 22:57 05:54 WBC RBC Hgb Hct MCV MCH MCHC RDW Plt Count MPV Neutrophils % Lymphocytes % Monocytes % Eosinophils % Basophils % VBG pH POC VBG pCO2 POC VBG pO2 Mixed VBG HCO3 Sodium Potassium Chloride Carbon Dioxide Anion Gap BUN Creatinine Creat Clearance w eGFR POC Glucometer 176 311 191 Random Glucose Lactic Acid Calcium Phosphorus Magnesium Total Bilirubin AST ALT Alkaline Phosphatase Ammonia Creatine Kinase Troponin I Total Protein Albumin Vitamin B12 TSH Urine Color Urine Appearance Urine pH Ur Specific [place] Urine Protein Urine Glucose (UA) Urine Ketones Urine Blood Urine Nitrite Urine Bilirubin Urine Urobilinogen Ur Leukocyte Esterase Urine WBC (Auto) Urine RBC (Auto) Urine Bacteria Granular Casts Urine Mucus Salicylates Opiates Screen Methadone Screen Acetaminophen Barbiturate Screen Phencyclidine Screen Ur Amphetamines Screen MDMA (Ecstasy) Screen Benzodiazepines Screen Cocaine Screen U Marijuana (THC) Screen Alcohol, Quantitative Acetone, Qual RPR Titer T.pallidum Ab ([facility]) 08/18/17 08/18/17 08/18/17 12:08 17:28 23:19 WBC RBC Hgb Hct MCV MCH MCHC RDW Plt Count MPV Neutrophils % Lymphocytes % Monocytes % Eosinophils % Basophils % VBG pH POC VBG pCO2 POC VBG pO2 Mixed VBG HCO3 Sodium Potassium Chloride Carbon Dioxide Anion Gap BUN Creatinine Creat Clearance w eGFR POC Glucometer 223 304 365 Random Glucose Lactic Acid Calcium Phosphorus Magnesium Total Bilirubin AST ALT Alkaline Phosphatase Ammonia Creatine Kinase Troponin I Total Protein Albumin Vitamin B12 TSH Urine Color Urine Appearance Urine pH Ur Specific [place] Urine Protein Urine Glucose (UA) Urine Ketones Urine Blood Urine Nitrite Urine Bilirubin Urine Urobilinogen Ur Leukocyte Esterase Urine WBC (Auto) Urine RBC (Auto) Urine Bacteria Granular Casts Urine Mucus Salicylates Opiates Screen Methadone Screen Acetaminophen Barbiturate Screen Phencyclidine Screen Ur Amphetamines Screen MDMA (Ecstasy) Screen Benzodiazepines Screen Cocaine Screen U Marijuana (THC) Screen Alcohol, Quantitative Acetone, Qual RPR Titer T.pallidum Ab ([facility]) 08/19/17 08/19/17 08/19/17 07:02 12:02 16:48 WBC RBC Hgb Hct MCV MCH MCHC RDW Plt Count MPV Neutrophils % Lymphocytes % Monocytes % Eosinophils % Basophils % VBG pH POC VBG pCO2 POC VBG pO2 Mixed VBG HCO3 Sodium Potassium Chloride Carbon Dioxide Anion Gap BUN Creatinine Creat Clearance w eGFR POC Glucometer 270 74 96 Random Glucose Lactic Acid Calcium Phosphorus Magnesium Total Bilirubin AST ALT Alkaline Phosphatase Ammonia Creatine Kinase Troponin I Total Protein Albumin Vitamin B12 TSH Urine Color Urine Appearance Urine pH Ur Specific [place] Urine Protein Urine Glucose (UA) Urine Ketones Urine Blood Urine Nitrite Urine Bilirubin Urine Urobilinogen Ur Leukocyte Esterase Urine WBC (Auto) Urine RBC (Auto) Urine Bacteria Granular Casts Urine Mucus Salicylates Opiates Screen Methadone Screen Acetaminophen Barbiturate Screen Phencyclidine Screen Ur Amphetamines Screen MDMA (Ecstasy) Screen Benzodiazepines Screen Cocaine Screen U Marijuana (THC) Screen Alcohol, Quantitative Acetone, Qual RPR Titer T.pallidum Ab ([facility]) 08/19/17 08/20/17 08/20/17 21:21 06:59 07:00 WBC 6.8 RBC 4.86 Hgb 14.2 D Hct 43.8 D MCV 90.2 MCH 29.1 MCHC 32.3 RDW 15.0 Plt Count 206 D MPV 9.8 Neutrophils % 63.9 Lymphocytes % 24.5 Monocytes % 10.8 H Eosinophils % 0.1 Basophils % 0.7 VBG pH POC VBG pCO2 POC VBG pO2 Mixed VBG HCO3 Sodium Potassium Chloride Carbon Dioxide Anion Gap BUN Creatinine Creat Clearance w eGFR POC Glucometer 276 178 Random Glucose Lactic Acid Calcium Phosphorus Magnesium Total Bilirubin AST ALT Alkaline Phosphatase Ammonia Creatine Kinase Troponin I Total Protein Albumin Vitamin B12 TSH Urine Color Urine Appearance Urine pH Ur Specific [place] Urine Protein Urine Glucose (UA) Urine Ketones Urine Blood Urine Nitrite Urine Bilirubin Urine Urobilinogen Ur Leukocyte Esterase Urine WBC (Auto) Urine RBC (Auto) Urine Bacteria Granular Casts Urine Mucus Salicylates Opiates Screen Methadone Screen Acetaminophen Barbiturate Screen Phencyclidine Screen Ur Amphetamines Screen MDMA (Ecstasy) Screen Benzodiazepines Screen Cocaine Screen U Marijuana (THC) Screen Alcohol, Quantitative Acetone, Qual RPR Titer T.pallidum Ab ([facility]) 08/20/17 08/20/17 08/20/17 07:00 12:10 16:51 WBC RBC Hgb Hct MCV MCH MCHC RDW Plt Count MPV Neutrophils % Lymphocytes % Monocytes % Eosinophils % Basophils % VBG pH POC VBG pCO2 POC VBG pO2 Mixed VBG HCO3 Sodium 141 Potassium 3.5 Chloride 102 Carbon Dioxide 24 Anion Gap 15 BUN 11 D Creatinine 0.9 Creat Clearance w eGFR > 60 POC Glucometer 293 212 Random Glucose 185 H D Lactic Acid Calcium 9.5 Phosphorus Magnesium Total Bilirubin 0.6 D AST 29 ALT 25 D Alkaline Phosphatase 96 Ammonia Creatine Kinase Troponin I Total Protein 8.4 H Albumin 3.6 Vitamin B12 TSH Urine Color Urine Appearance Urine pH Ur Specific [place] Urine Protein Urine Glucose (UA) Urine Ketones Urine Blood Urine Nitrite Urine Bilirubin Urine Urobilinogen Ur Leukocyte Esterase Urine WBC (Auto) Urine RBC (Auto) Urine Bacteria Granular Casts Urine Mucus Salicylates Opiates Screen Methadone Screen Acetaminophen Barbiturate Screen Phencyclidine Screen Ur Amphetamines Screen MDMA (Ecstasy) Screen Benzodiazepines Screen Cocaine Screen U Marijuana (THC) Screen Alcohol, Quantitative Acetone, Qual RPR Titer T.pallidum Ab ([facility]) 08/20/17 08/21/17 08/21/17 21:34 05:46 12:51 WBC RBC Hgb Hct MCV MCH MCHC RDW Plt Count MPV Neutrophils % Lymphocytes % Monocytes % Eosinophils % Basophils % VBG pH POC VBG pCO2 POC VBG pO2 Mixed VBG HCO3 Sodium Potassium Chloride Carbon Dioxide Anion Gap BUN Creatinine Creat Clearance w eGFR POC Glucometer 286 180 297 Random Glucose Lactic Acid Calcium Phosphorus Magnesium Total Bilirubin AST ALT Alkaline Phosphatase Ammonia Creatine Kinase Troponin I Total Protein Albumin Vitamin B12 TSH Urine Color Urine Appearance Urine pH Ur Specific [place] Urine Protein Urine Glucose (UA) Urine Ketones Urine Blood Urine Nitrite Urine Bilirubin Urine Urobilinogen Ur Leukocyte Esterase Urine WBC (Auto) Urine RBC (Auto) Urine Bacteria Granular Casts Urine Mucus Salicylates Opiates Screen Methadone Screen Acetaminophen Barbiturate Screen Phencyclidine Screen Ur Amphetamines Screen MDMA (Ecstasy) Screen Benzodiazepines Screen Cocaine Screen U Marijuana (THC) Screen Alcohol, Quantitative Acetone, Qual RPR Titer T.pallidum Ab ([facility]) 08/21/17 08/21/17 08/22/17 17:13 21:40 06:53 WBC RBC Hgb Hct MCV MCH MCHC RDW Plt Count MPV Neutrophils % Lymphocytes % Monocytes % Eosinophils % Basophils % VBG pH POC VBG pCO2 POC VBG pO2 Mixed VBG HCO3 Sodium Potassium Chloride Carbon Dioxide Anion Gap BUN Creatinine Creat Clearance w eGFR POC Glucometer 225 176 80 Random Glucose Lactic Acid Calcium Phosphorus Magnesium Total Bilirubin AST ALT Alkaline Phosphatase Ammonia Creatine Kinase Troponin I Total Protein Albumin Vitamin B12 TSH Urine Color Urine Appearance Urine pH Ur Specific [place] Urine Protein Urine Glucose (UA) Urine Ketones Urine Blood Urine Nitrite Urine Bilirubin Urine Urobilinogen Ur Leukocyte Esterase Urine WBC (Auto) Urine RBC (Auto) Urine Bacteria Granular Casts Urine Mucus Salicylates Opiates Screen Methadone Screen Acetaminophen Barbiturate Screen Phencyclidine Screen Ur Amphetamines Screen MDMA (Ecstasy) Screen Benzodiazepines Screen Cocaine Screen U Marijuana (THC) Screen Alcohol, Quantitative Acetone, Qual RPR Titer T.pallidum Ab ([facility]) Assessment: 08/22/17 10:50 d/w [facility]tp nurse, patient came every day to clinic for his 70mg dose and continued using heroin on top, seems to have responded well to 10mg methadone dose given today, will slowly increase dose. additional 10mg ordered today. plan to transfer to residential and build dose back up to 70mg daily . by 10mg/ week once dischargegd from hospital. Lemuel Hansen MD [phone]
[2017-08-22] MEDS ORDERED: METHADONE HCL 10 MG TABLET PO ONE (10:53)
[2017-08-22] MEDS ORDERED: NICOTINE POLACRILEX 2 MG GUM BUC PRN (10:57)
[2017-08-22] MEDS ORDERED: NICOTINE 14 MG/24 HOURS TOPICAL PATCH TD SCH (11:00)
--- NOTE | 2017-08-22 15:43 | PN ---
Progress Note, Physician - Current Medication List Current Medications: Active Medications Amlodipine Besylate (Norvasc -) 5 mg PO DAILY [facility] Last Admin: 08/22/17 10:38 Dose: 5 mg Aspirin (Asa -) 81 mg PO DAILY [facility] Last Admin: 08/22/17 10:37 Dose: 81 mg Folic Acid (Folic Acid -) 1 mg PO DAILY [facility] Last Admin: 08/22/17 10:37 Dose: 1 mg Heparin Sodium (Porcine) (Heparin -) 5,000 unit SQ TID [facility] Last Admin: 08/22/17 13:52 Dose: 5,000 unit Hydrochlorothiazide (Hctz -) 12.5 mg PO DAILY [facility] Last Admin: 08/22/17 10:38 Dose: 12.5 mg Insulin Aspart (Novolog Vial Sliding Scale -) 1 vial SQ HS [facility] PRN Reason: Protocol Last Admin: 08/21/17 21:41 Dose: Not Given Insulin Aspart (Novolog Vial Sliding Scale -) 1 vial SQ TIDAC [facility] PRN Reason: Protocol Last Admin: 08/22/17 11:57 Dose: 9 units Insulin Detemir (Levemir Vial) 16 units SQ HS [facility] Last Admin: 08/21/17 21:43 Dose: 16 unit Lisinopril (Prinivil) 20 mg PO DAILY [facility] Last Admin: 08/22/17 10:38 Dose: 20 mg Methadone HCl (Dolophine -) 20 mg PO DAILY@0600 [facility] Nicotine (Nicoderm Patch -) 14 mg TD DAILY [facility] Last Admin: 08/22/17 12:35 Dose: 14 mg Nicotine Polacrilex (Nicorette Gum -) 2 mg [facility]UC Q2H PRN PRN Reason: NICOTINE REPLACEMENT RX Nifedipine (Procardia Xl -) 30 mg PO [facility] Last Admin: 08/21/17 21:51 Dose: 30 mg Olanzapine (Zyprexa -) 5 mg PO [facility] Last Admin: 08/21/17 21:51 Dose: 5 mg Multivit/Folic Acid/Iron ( Vitamins (Sjr) -) 1 tab PO DAILY [facility] Last Admin: 08/22/17 10:38 Dose: 1 tab Ranolazine (Ranexa -) 500 mg PO DAILY [facility] Last Admin: 08/22/17 10:38 Dose: 500 mg Thiamine HCl (Vitamin B1 -) 100 mg PO [facility] Last Admin: 08/21/17 21:51 Dose: 100 mg - Objective Vital Signs: Vital Signs Temperature 98.4 F 08/22/17 10:00 Pulse Rate 92 H 08/22/17 10:00 Respiratory Rate 20 08/22/17 10:00 Blood Pressure 112/74 08/22/17 10:00 O2 Sat by Pulse Oximetry (%) 98 08/22/17 09:00 Labs: CBC, BMP 08/20/17 07:00 08/20/17 07:00
[2017-08-23] MEDS ORDERED: METHADONE HCL 10 MG TABLET PO SCH (06:00)
== END 2017-08-22 17:11 | DRG 637 ==
LOC: JER 06:46 → JERBED 10:14 → JICU 13:09 → JERBED 13:12 → JICU 15:10 → J8W 08-16 00:48
PROVIDERS: ADMIT Internal Medicine; ATTEND Internal Medicine
DX: E11.10 Type 2 diabetes mellitus with ketoacidosis without coma (principal); G92 Toxic encephalopathy; N17.9 Acute kidney failure, unspecified; R64 Cachexia; F11.20 Opioid dependence, uncomplicated; E87.2 Acidosis; F10.231 Alcohol dependence with withdrawal delirium; Z68.1 Body mass index [BMI] 19.9 or less, adult; I10 Essential (primary) hypertension; B18.2 Chronic viral hepatitis C; Z21 Asymptomatic human immunodeficiency virus [HIV] infection status; Z79.4 Long term (current) use of insulin; F17.210 Nicotine dependence, cigarettes, uncomplicated; B19.20 Unspecified viral hepatitis C without hepatic coma; G40.909 Epilepsy, unspecified, not intractable, without status epilepticus
CPT/HCPCS: 36415; 70450-TC; 71045-TC; 74176-TC; 80048; 80053; 80307; 81003; 81015; 82009; 82140; 82550; 82607; 82803; 82962; 83605; 83735; 84100; 84436; 84443; 84484; 85025; 86593; 86780; 87040; 87086; 93005; 93010; 97116-GP; 97161-GP; 99285-25; J1644

== ENCOUNTER 2018-06-11 14:31 | Inpatient (IN) | payer MEDICARE, OTHER ==
--- NOTE | 2018-06-11 14:37 | PDOC ---
History of Present Illness - General Stated Complaint: DIZZY Time Seen by Provider: 06/11/18 14:34 - History of Present Illness Initial Comments: Duane Ramirez is a 67yo man with a PMH of HTN, HLD, IDDM (previous admission for DKA in 08/30), HepC (treated) who presents from home today following an episode of weakness, lightheadedness, and hypoglycemia to 42 this morning. He reports that he was walking with his brother and was unable to climb up the stairs. He became lightheaded and fell. He checked his blood glucose, and it was 42. EMS was called and gave him some PO sugar. His blood glucose came up to the 60's. He was noted to be hypotensive to the 90/40's on arrival to the ED. Mr Ramirez and his report that he has had similar episodes over the past few months with relative fequency. He is often lightheaded with vision changes when standing up. His also states that he has hypoglycemia to as low as the 30s at least several times per week. Mr Ramirez confirms this. Per his , he has been using sweet'n'low packets to attempt to raise his blood glucose as he did not realize these did not actually contain sugar. He states that he checks his glucose regularly 3x per day, but his disagrees and says that he always needs to be reminded to check. Additionally, she says that he has had a very poor appetite with low PO intake and almost no water/fluid intake. He does report 4 beers per day every day. He does report compliance with his mediations at home. His also reports that she has witnessed several episodes of syncope that occurred immediately after Mr Ramirez stood up from sitting. There were two episodes last week. Mr Ramirez denies any headache, fatigue, chest pain, SOB, cough, nausea/vomiting , or change in bowel habits. He does endorse urinary frequency, nocturia, and mild dysuria. Past History - Past Medical History Allergies/Adverse Reactions: Allergies Allergy/AdvReac Type Severity Reaction Status Date / Time No Known Allergies Allergy Verified 06/11/18 14:43 Home Medications: Ambulatory Orders Duloxetine HCl 30 mg PO BID 06/11/18 Insulin Degludec [Tresiba Flextouch U-100] 22 unit SQ DAILY 06/11/18 Insulin Sliding Scale [Novolog Vial Sliding Scale -] 0 units SQ TIDAC 06/11/18 Linaclotide [Linzess] 72 mcg PO DAILY 06/11/18 Meloxicam 7.5 mg PO DAILY 06/11/18 Methadone [Dolophine -] 40 mg PO DAILY 06/11/18 Mirtazapine 15 mg PO HS 06/11/18 Olmesartan Medoxomil [Benicar (Nf)] 20 mg PO DAILY 06/11/18 Olmesartan/Hydrochlorothiazide [Olmesartan-Hctz 20-12.5 mg Tab] 1 each PO DAILY 06/11/18 Rosuvastatin [Crestor -] 5 mg PO HS 06/11/18 Tizanidine HCl 4 mg PO TID 06/11/18 Anemia: No Asthma: No Cancer: No Cardiac Disorders: Yes (hx high bp, advised to get stents) CVA: No COPD: No CHF: No Dementia: No Diabetes: Yes GI Disorders: Yes (?ulcers) Disorders: No HTN: Yes Hypercholesterolemia: Yes Liver Disease: Yes (Hep C) Seizures: Yes Thyroid Disease: No - Surgical History Abdominal Surgery: No Appendectomy: No Cardiac Surgery: No Cholecystectomy: No Lung Surgery: No Neurologic Surgery: No Orthopedic Surgery: Yes (R knee surgery 01/25/12 = biopsy) - Suicide/Smoking/Psychosocial Hx Smoking History: Unknown if ever smoked Have you smoked in the past 12 months: No Number of Cigarettes Smoked Daily: 1 Cigars Per Day: 0 'Breaking Loose' booklet given: 07/07/15 (given previous admission) Hx Alcohol Use: No Drug/Substance Use Hx: Yes Substance Use Type: Alcohol, Heroin Hx Substance Use Treatment: Yes ([facility]) Review of Systems - Review of Systems Comments:: General: No fevers, no chills, no weight or appetite change, no malaise HEENT: +Blurry vision when standing. No changes in hearing, no congestion, no sore throat CV: No chest pain, no palpitations, no LE edema. +lightheadedness Pulm: No SOB, no cough, no wheezing GI: No nausea or vomiting, no change in bowel habits, no melena : +Dysuria, +nocturia Musc: No back pain, no joint swelling, no recent injury Skin: No rash, no lesions, no erythema Endo: No excessive thirst, no heat/cold intolerance Heme: No unusual bruising or bleeding, no swollen glands Neuro: No syncope, no numbness/tingling, no focal weakness Vasc: No claudication Psych: No recent change in mood, no SI or HI *Physical Exam - Physical Exam Comments: General: Comfortable, no acute distress HEENT: PERRL, EOMI, MMM, voice normal, normal neck ROM, no LAD Cards: RRR, no murmur appreciated Pulm: Comfortable on room air, clear to auscultation bilaterally Abd: Soft, nontender, nondistended : No CVA tenderness Ext: Atraumatic. No LE edema. ROM intact. Strength 5/5 and equal bilaterally Vasc: Extremities WWP. Skin: Normal color, no rashes or lesions Neuro: A&Ox3, CN grossly intact, normal speech, motor/sensory grossly intact and symmetric Psych: Mood appropriate to situation ED Treatment Course - LABORATORY CBC & Chemistry Diagram: 06/11/18 15:30 06/11/18 16:04 Medical Decision Making - Medical Decision Making 06/11/18 16:54 Duane Ramirez is a 67yo man with a PMH of IDDM, HTN, HLD, treated HepC who presents after an episode of lightheadedness vs syncope and hypoglycemia to 42 at home today. He reports that he has had these symptoms frequently over the past few months with sugars into the 30s or 40's at least twice per week and multiple episodes of lightheadedness. - Underlying infection v medication non-compliance v poor PO intake - CBC, CMP, lipase, coags, lactate, troponin, CXR, EKG, UA/UCx ordered - Initially hypotensive, repeat during exam 130/98 - Orthostatics negative - Will likely be obs or admit given repeated episodes of hypoglycemia and syncope/pre-syncope at home 06/11/18 17:15 - CBC unremarkale - pH on VBG 7.24 - Lactate 3.4 - Ceftriaxone ordered for suspected UTI, urine sample still needs to be sent 06/11/18 17:40 - CMP notable for ADEEL - BUN 22, Cr 1.3 from 8 and 0.8 in August - Glucose 86 - Urine still needed - Call placed to Dr Hernandez for admission for ADEEL, lactic acidosis, suspected UTI 06/11/18 18:31 - Spoke to Dr Hernandez. Will admit to her service for additional workup. - Still unable to provide urine sample. Will straight cath if needed to send sample for UA and culture Seen and discussed with Dr Katia Jim PGY1 *DC/Admit/Observation/Transfer Diagnosis at time of Disposition: ADEEL (acute kidney injury), Lactic acidosis, Hypoglycemia - Discharge Dispostion Decision to Admit order: Yes - Referrals Referrals: Garfield Ko MD [Primary Care Provider] - - Patient Instructions - Post Discharge Activity
[2018-06-11] MEDS ORDERED: SODIUM CHLORIDE 0.9% 500 ML INFUS.BAG IV ONE (15:12)
[2018-06-11 15:15] VITALS: BMI 21.7
[2018-06-11 15:41] LABS: BASO % 0.7 % (0-2.0); EOS % 0.6 % (0-4.5); HEMATOCRIT 38.9 % (35.4-49); HEMOGLOBIN 12.8 GM/dL (11.7-16.9); LYMPH % 30.6 % (8-40); MCH 29.6 pg (25.7-33.7); MCHC 32.9 g/dl (32.0-35.9); MEAN CELL VOLUME 89.8 fl (80-96); MEAN PLT VOLUME 8.8 fl (7.5-11.1); NEUT % 58.1 % (42.8-82.8); PLATELET COUNT 237 K/MM3 (134-434); RBC 4.33 M/mm3 (4.00-5.60); RDW 14.4 % (11.9-15.9); VENOUS PC02 65.9 mmHg (38-52); VENOUS PH 7.24 (7.32-7.42); VENOUS PO2 27.2 mmHg (28-48); WHITE BLOOD COUNT 6.4 K/mm3 (4.0-10.0)
--- NOTE | 2018-06-11 15:50 | PDOC ---
Attending Attestation - HPI HPI: 06/11/18 16:43 The patient is a 67-year-old male, with a past medical history of HTN, IDDM, Hep C, who presents to the ED with low blood sugar and syncope today. For the past few weeks, the patients BS has been fluctuating and because of this he reports feeling increasingly more weak and has been experiencing a loss of appetite. He presents today s/p brief syncopal episode at home. The patient states that he was walking with his brother and suddenly became lightheaded and fell. checked his glucose and noted it to be 45. The patient was given candy and EMS was called. - Physicial Exam PE: 06/11/18 16:44 GENERAL: Awake, alert, and fully oriented, in no acute distress HEAD: No signs of trauma EYES: PERRLA, EOMI, sclera anicteric, conjunctiva clear ENT: Auricles normal inspection, hearing grossly normal, nares patent. Moist mucosa NECK: Normal ROM, supple, no lymphadenopathy, JVD, or masses LUNGS: Breath sounds equal, clear to auscultation bilaterally. No wheezes, and no crackles HEART: Regular rate and rhythm, normal S1 and S2, no murmurs, rubs or gallops ABDOMEN: Soft, nontender. No guarding, no rebound. No masses EXTREMITIES: Normal range of motion, no edema. No clubbing or cyanosis. No cords, erythema, or tenderness NEUROLOGICAL: Cranial nerves II through XII grossly intact. Normal speech. SKIN: Warm, Dry, normal turgor, no rashes or lesions noted. <Lissette Alexandra - Last Filed: 06/11/18 17:15> - Resident Resident Name: Carol Ann Jim - ED Attending Attestation I have performed the following: I have examined & evaluated the patient, The case was reviewed & discussed with the resident, I agree w/resident's findings & plan, Exceptions are as noted - Medical Decision Making 06/11/18 15:50 A portion of this note was documented by scribe services under my direction. I have reviewed the details of the note, within reason, and agree with the documentation with the following case summary and management plan written by me. Patient treated in the ED. Nursing notes are reviewed and incorporated into the medical decision-making. Vital signs reviewed. Peripheral IV access obtained by the nurse, laboratory studies are drawn and sent, reviewed and interpreted by myself. Vital Signs Temp Pulse Resp BP Pulse Ox 97.2 F L 83 20 128/78 98 06/11/18 14:43 06/11/18 15:40 06/11/18 15:40 06/11/18 15:40 06/11/18 15:40 67 year old male with past medical history of hypertension, insulin-dependent diabetes, hepatitis C presents with hypoglycemia and syncope. According to the patient and patient's , the patient has had several weeks of failure to thrive. Has been having decreased appetite and generalized weakness. As noted throughout the last several weeks that his sugars been fluctuate between hyperglycemia and hypoglycemia. The patient has been reported here in to his insulin and does not recall recent change in his insulin medications. Denies recent illnesses, fevers, chills. Today, the patient again felt generally weak and had a syncopal episode today. The patient denies collapsed to the ground. States that the episodes very brief. His took his sugar is noted to be 45. Patient was given candy and EMS was called. Patient repeat sugar here is in the mid 60s. Patient was given juice. The patient has been noting some dysuria and urinary frequency lately. Came to the ER for further evaluation. has noted with the patient has been having intermittent hypotensive episodes at home. Here, on triage vital signs, patient noted be tachycardic and 98 and a blood pressure 90 systolic. With the dysuria, infection of potentially urosepsis. We'll elevate for metabolic disarray such as acute renal failure that may suggest for hypoglycemia. We'll check labs including troponin. The patient will ultimately benefit from IV fluids and admission to telemetry under observation or admission for further evaluation. 06/11/18 18:01 CBC, BMP 06/11/18 15:30 06/11/18 16:04 CMP Sodium 137 mmol/L (136-145) 06/11/18 16:04 Potassium 3.9 mmol/L (3.5-5.1) 06/11/18 16:04 Chloride 102 mmol/L (98-107) 06/11/18 16:04 Carbon Dioxide 25 mmol/L (21-32) 06/11/18 16:04 Anion Gap 10 MMOL/L (8-16) 06/11/18 16:04 BUN 22 mg/dL (7-18) H 06/11/18 16:04 Creatinine 1.3 mg/dL (0.55-1.3) 06/11/18 16:04 Creat Clearance w eGFR 54.90 (>60) 06/11/18 16:04 Random Glucose 86 mg/dL (74-106) 06/11/18 16:04 Lactic Acid 3.4 mmol/L (0.4-2.0) H* 06/11/18 15:30 Calcium 8.4 mg/dL (8.5-10.1) L 06/11/18 16:04 Total Bilirubin 0.2 mg/dL (0.2-1) 06/11/18 16:04 AST 39 U/L (15-37) H 06/11/18 16:04 ALT 28 U/L (13-61) 06/11/18 16:04 Alkaline Phosphatase 90 U/L (45-117) 06/11/18 16:04 Creatine Kinase 82 IU/L (26-308) 06/11/18 16:04 Troponin I < 0.02 ng/ml (0.00-0.05) 06/11/18 16:04 Total Protein 7.3 g/dl (6.4-8.2) 06/11/18 16:04 Albumin 3.5 g/dl (3.4-5.0) 06/11/18 16:04 pt with lactic acidosis. Pt given empiric IV antibiotics (ceftriaxone) UA pending. Pt given IV fluids. Will repeat lactic acid. Admit. <Efrain Montalvo - Last Filed: 06/11/18 18:02> Heart Score/ECG Review #1 ECG reviewed & interpreted by me at: 15:35 06/11/18 15:52 NSR 81, left axis deviation, LVH, no std/luis, T wave flat avL, III, avF, TWI V3 , QTC 469 msec <Efrain Montalvo - Last Filed: 06/11/18 18:02> Attestations - Attestations 06/11/18 16:47 Documentation prepared by Lissette Alexandra, acting as medical office worker for Efrain Montalvo MD. <Lissette Alexandra - Last Filed: 06/11/18 17:15>
[2018-06-11 15:52] LABS: INR 0.91 (0.83-1.09); PROTHROMBIN TIME (PATIENT) 10.7 SEC (9.7-13.0)
[2018-06-11 15:54] LABS: ACTIVATED PTT 30.6 SECONDS (25.2-36.5)
[2018-06-11] MEDS ORDERED: CEFTRIAXONE 500 MG in DEXTROSE 5%-WATER - 50 ML IVPB ONE (17:14)
[2018-06-11] MEDS ORDERED: CEFTRIAXONE IVPB ONE (17:32)
[2018-06-11] MEDS ORDERED: WATER IVPB ONE (17:32)
[2018-06-11] MEDS ORDERED: DEXTROSE 5% IVPB ONE (17:32)
[2018-06-11] MEDS ORDERED: CEFTRIAXONE 1 GM/50 ML BAG ONE (17:33)
[2018-06-11 17:35] LABS: ALBUMIN 3.5 g/dl (3.4-5.0); ALK PHOS 90 U/L (45-117); ANION GAP 10 MMOL/L (8-16); BILIRUBIN,TOTAL 0.2 mg/dL (0.2-1); BLOOD UREA NITROGEN 22 mg/dL (7-18); CALCIUM 8.4 mg/dL (8.5-10.1); CHLORIDE 102 mmol/L (98-107); CO2 25 mmol/L (21-32); CREATININE 1.3 mg/dL (0.55-1.3); GLUCOSE,RANDOM 86 mg/dL (74-106); POTASSIUM 3.9 mmol/L (3.5-5.1); SGOT/AST 39 U/L (15-37); SGPT/ALT 28 U/L (13-61); SODIUM 137 mmol/L (136-145); TOT PROT 7.3 g/dl (6.4-8.2)
[2018-06-11 18:36] LABS: URINE APPEARANCE CLEAR; URINE BILIRUBIN NEGATIVE (<2.0 mg/dL); URINE COLOR LTYELLOW; URINE GLUCOSE (UA) 3+ (NEGATIVE); URINE KETONE NEGATIVE (NEGATIVE); URINE LEUK ESTERASE NEGATIVE (NEGATIVE); URINE NITRITE NEGATIVE (NEGATIVE); URINE PROTEIN NEGATIVE (NEGATIVE); URINE UROBILINOGEN NEGATIVE mg/dL (0.2-1.0)
[2018-06-11] MEDS: DULoxetine HCL 30 MG CAPSULE.DR (FP) PO SCH (23:52)
[2018-06-12] MEDS: INSULIN SLIDING SCALE (NOVOLOG) 1 VIAL SQ SCH ×4 (06:10→21:30)
[2018-06-12 06:54] LABS: BASO % 0.6 % (0-2.0); EOS % 0.8 % (0-4.5); HEMATOCRIT 34.5 % (35.4-49); HEMOGLOBIN 11.3 GM/dL (11.7-16.9); LYMPH % 31.2 % (8-40); MCH 29.4 pg (25.7-33.7); MCHC 32.8 g/dl (32.0-35.9); MEAN CELL VOLUME 89.7 fl (80-96); MEAN PLT VOLUME 8.6 fl (7.5-11.1); MONO % 8.9 % (3.8-10.2); NEUT % 58.5 % (42.8-82.8); PLATELET COUNT 175 K/MM3 (134-434); RBC 3.84 M/mm3 (4.00-5.60); RDW 13.8 % (11.9-15.9); WHITE BLOOD COUNT 5.3 K/mm3 (4.0-10.0)
[2018-06-12 06:58] LABS: ALBUMIN 3.6 g/dl (3.4-5.0); ALK PHOS 90 U/L (45-117); ANION GAP 6 MMOL/L (8-16); BILIRUBIN,TOTAL 0.5 mg/dL (0.2-1); BLOOD UREA NITROGEN 16 mg/dL (7-18); CALCIUM 9.2 mg/dL (8.5-10.1); CHLORIDE 101 mmol/L (98-107); CO2 28 mmol/L (21-32); GLUCOSE,RANDOM 236 mg/dL (74-106); POTASSIUM 4.2 mmol/L (3.5-5.1); SGOT/AST 46 U/L (15-37); SGPT/ALT 32 U/L (13-61); SODIUM 135 mmol/L (136-145); TOT PROT 7.2 g/dl (6.4-8.2)
--- NOTE | 2018-06-12 08:36 | CON.CARD ---
Cardiology Consult (text) - Consultation Consultation Note: Cardiology Consult Dictated IMP: DM Presyncope in setting hypoglycemia REC: 1. Adjustment of insulin and glucose monitoring as per PMD 2. Doubt arrhythmia- will check 24 hr holter 3. Echo
--- NOTE | 2018-06-12 09:11 | CONS ---
DATE OF CONSULTATION: 06/12/2018 REQUESTING PHYSICIAN: The consultation is requested by Dr. Hernandez for presyncope. HISTORY OF PRESENT ILLNESS: The patient is a 67-year-old male with past medical history of hypertension, hyperlipidemia and insulin-dependent diabetes with previous admission for DKA, treated hepatitis C who presented to the emergency room on June 11 with an episode of generalized weakness, lightheadedness and hypoglycemia to 42. He reported that while walking with his brother he became generally weak and unable to climb the stairs, lightheaded. Denied chest pain, palpitations. Blood glucose was 42. EMS was called and gave him some sugar supplementation with glucose rising to the 60s. Initially in the emergency department he was hypotensive to the 90s systolic. The patient reports that he has had 2 similar episodes over the last few months and was told by his PMD that he could discontinue insulin. He then resumed taking it on his own. He denies chest pain, headaches, fatigue, shortness of breath, cough, changes in vision or any other focal neurological deficits. ALLERGIES: He has no known drug allergies. CURRENT MEDICATIONS: Include IV ceftriaxone; Cymbalta 30 mg p.o. b.i.d.; subcutaneous heparin 5000 units b.i.d.; methadone 40 mg p.o. daily; Remeron; and rosuvastatin 5 mg p.o. daily. FAMILY HISTORY: Noncontributory. SOCIAL HISTORY: He is on a methadone maintenance program. Drinks alcohol socially, former heroin use. Denies active smoking. PHYSICAL EXAMINATION:General: He is alert, oriented, anicteric, in no acute distress. He is eating breakfast. Vital Signs: He is afebrile with temperature of 98.5, blood pressure 145/80, O2 saturation 96 on room air. Neck: No bruits. Heart: S1, 2 regular. No murmurs. Chest: Clear. Abdomen: Soft. Extremities: No edema. His EKG showed normal sinus rhythm with borderline LVH, left anterior hemiblock and nonspecific T-wave changes in V3. LABORATORIES: White count 5.3, hematocrit 34.5, platelets 175. INR 0.91. Sodium 135, potassium 4.2, creatinine 1.0. Lactic acid 3.1 down to 1.1. First set of cardiac enzymes was negative. Urine showed 3+ glucose. Chest x-ray: No acute pathology. IMPRESSION: 1. Diabetes. 2. Presyncope in the setting of hypoglycemia. RECOMMENDATIONS: 1. Adjustment of insulin and glucose monitoring as per PMD. 2. Doubt arrhythmia, will check 24-hour Holter. 3. Echocardiogram. Thank you. JAGUAR SPAULDING M.D. [id number]
[2018-06-12] MEDS ORDERED: INSULIN (NOVOLOG) ASPART 100 UNITS/ML 10ML VIAL ONE ×3 (09:49→20:49)
[2018-06-12] MEDS ORDERED: INSULIN (LEVEMIR) 100 UNITS/ML UNITS SQ ONE (09:49)
--- NOTE | 2018-06-12 09:50 | CON.ID ---
Consult Consult Specialty:: infectious diseases Reason for Consultation:: r/o uti,syncope - History of Present Illness Chief Complaint: syncope History of Present Illness: 67yo man with a PMH of HTN, HLD, IDDM , HepC who presents from home today following an episode of weakness, lightheadedness, and hypoglycemia to 42 this morning. He reports that he was walking with his brother and was unable to climb up the stairs. He became lightheaded and fell. He checked his blood glucose, and it was 42. EMS was called and gave him some PO sugar. His blood glucose came up to the 60's. He was noted to be hypotensive to the 90/40's on arrival to the ED. patient had this episodes before Mr Ramirez denies any headache, fatigue, chest pain, SOB, cough, nausea/vomiting , or change in bowel habits. He does endorse urinary frequency, nocturia, and mild dysuria. 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) Cardio/Vascular: Yes: HTN, Hyperlipdemia Hepatobiliary: Yes: Hepatitis C Infectious Disease: Yes: HIV Psych: Yes: Addictions Endocrine: Yes: Diabetes Mellitus - Alcohol/Substance Use Hx Alcohol Use: No - Smoking History Smoking history: Unknown if ever smoked Have you smoked in the past 12 months: No Aproximately how many cigarettes per day: 1 - Social History Usual Living Arrangement: With Significant Other ADL: Independent History of Recent Travel: No Home Medications - Allergies Allergies/Adverse Reactions: Allergies Allergy/AdvReac Type Severity Reaction Status Date / Time No Known Allergies Allergy Verified 06/11/18 14:43 - Home Medications Home Medications: Ambulatory Orders Duloxetine HCl 30 mg PO BID 06/11/18 Insulin Degludec [Tresiba Flextouch U-100] 22 unit SQ DAILY 06/11/18 Insulin Sliding Scale [Novolog Vial Sliding Scale -] 0 units SQ TIDAC 06/11/18 Linaclotide [Linzess] 72 mcg PO DAILY 06/11/18 Meloxicam 7.5 mg PO DAILY 06/11/18 Methadone [Dolophine -] 40 mg PO DAILY 06/11/18 Mirtazapine 15 mg PO HS 06/11/18 Olmesartan Medoxomil [Benicar (Nf)] 20 mg PO DAILY 06/11/18 Olmesartan/Hydrochlorothiazide [Olmesartan-Hctz 20-12.5 mg Tab] 1 each PO DAILY 06/11/18 Rosuvastatin [Crestor -] 5 mg PO HS 06/11/18 Tizanidine HCl 4 mg PO TID 06/11/18 Family Disease History - Family Disease History Family Disease History: Diabetes: Mother ( age 84 from dm), Heart Disease: Father ( age 50s hx mi), Mother, Brother (8 brothers, 1 age 60s from ca), Other: Grandparent (all natural causes), Father, Brother, Sister (3 all a&w), Son (has 4 a&w), Daughter (2 a&w) Review of Systems - Review of Systems Constitutional: reports: Weakness Eyes: reports: No Symptoms HENT: reports: No Symptoms Neck: reports: No Symptoms Cardiovascular: reports: No Symptoms Respiratory: reports: No Symptoms Gastrointestinal: reports: No Symptoms Genitourinary: reports: Dysuria Musculoskeletal: reports: No Symptoms Integumentary: reports: No Symptoms Neurological: reports: Dizziness Endocrine: reports: Other Hematology/Lymphatic: reports: No Symptoms Psychiatric: reports: No Symptoms Physical Exam Vital Signs: Vital Signs Temperature 98.5 F 06/12/18 05:56 Pulse Rate 77 06/12/18 05:56 Respiratory Rate 20 06/12/18 05:56 Blood Pressure 145/87 06/12/18 05:56 O2 Sat by Pulse Oximetry (%) 96 06/11/18 21:00 Constitutional: Yes: Well Nourished, No Distress, Calm Cardiovascular: Yes: Regular Rate and Rhythm Respiratory: Yes: Regular, CTA Bilaterally Gastrointestinal: Yes: Normal Bowel Sounds, Soft Musculoskeletal: Yes: WNL Extremities: Yes: WNL Neurological: Yes: Alert, Oriented Psychiatric: Yes: Alert, Oriented Labs: CBC, BMP 06/12/18 05:30 06/12/18 05:30 Imaging - Results Chest X-ray: Report Reviewed, Image Reviewed Assessment/Plan syncope dysuria weakness dm plan will stop abx and monitor await for sensitivities to come back rest continue current mgmt patient stable
[2018-06-12] MEDS ORDERED: CEFTRIAXONE 1 GM in DEXTROSE 5%-WATER - 50 ML IVPB SCH (10:00)
[2018-06-12] MEDS ORDERED: METHADONE HCL 40 MG DISPERSABLE TABLET PO SCH (10:00)
[2018-06-12] MEDS ORDERED: PT OWN MED DRAWER 7, Y5N ONE ×2 (10:33→21:27)
[2018-06-12] MEDS: HEPARIN NA (PORCINE) 5,000 UNITS/ML 1ML VIAL SQ SCH ×2 (10:46→21:30)
[2018-06-12] MEDS: DULoxetine HCL 30 MG CAPSULE.DR (FP) PO SCH ×2 (10:46→21:31)
--- NOTE | 2018-06-12 11:02 | EKG ---
Test Reason : Blood Pressure : / mmHG Vent. Rate : 081 BPM Atrial Rate : 081 BPM P-R Int : 146 ms QRS Dur : 074 ms QT Int : 404 ms P-R-T Axes : 042 -36 024 degrees QTc Int : 469 ms POOR DATA QUALITY, INTERPRETATION MAY BE ADVERSELY AFFECTED NORMAL SINUS RHYTHM LEFT AXIS DEVIATION MINIMAL VOLTAGE CRITERIA FOR LVH, MAY BE NORMAL VARIANT ABNORMAL ECG WHEN COMPARED WITH ECG OF 13-AUG-2017 07:02, NO SIGNIFICANT CHANGE WAS FOUND Confirmed by RAIZA CLAIRE, VALERIA ([id number]) on 06/12/2018 11:01:54 AM Referred By: Confirmed By:VALERIA EASTMAN MD
[2018-06-12] MEDS ORDERED: METHADONE HCL 10 MG TABLET ONE (12:10)
[2018-06-12] MEDS ORDERED: METHADONE HCL 40 MG DISPERSABLE TABLET ONE (12:10)
[2018-06-12] MEDS: METHADONE 40 MG, METHADONE 10 MG PO SCH (12:13)
[2018-06-12] MEDS: VALSARTAN 160 MG TABLET (UD) PO SCH (12:13)
[2018-06-12] MEDS: HYDROCHLOROTHIAZIDE 12.5 MG CAPSULE (FP) PO SCH (12:13)
--- NOTE | 2018-06-12 13:00 | ECHO ---
Version: 1 Name: NEIL KNIGHT Exam: Adult Echocardiogram Study Date: 06/12/2018, 8:57 AM Age: 67 Years MMode/2D Measurements & Calculations IVSd: 0.96 cm LVIDs: 3.3 cm LVIDd: 5.3 cm LVPWd: 1.05 cm ACS: 2.6 cm Ao root diam: 3.6 cm LA dimension: 3.4 cm Doppler Measurements & Calculations MV E max ronnie: 54.8 cm/sec Med E/e': 6.5 MV A max ronnie: 68.4 cm/sec Med Peak E' Ronnie: 8.4 cm/sec MV E/A: 0.80 Lat E/e': 5.1 Lat Peak E' Ronnie: 10.7 cm/sec Ao max P.4 mmHg Ao mean P.44 mmHg Ao V2 max: 105.1 cm/sec AI P1/2t: 588.3 msec TR max ronnie: 188.4 cm/sec TR max P.2 mmHg Procedure A two-dimensional transthoracic echocardiogram with color flow and Doppler was performed. Left Ventricle The left ventricular size, thickness and function are normal. Upper septal hypertrophy (sigmoid sept um), normal variant. The left ventricular ejection fraction is normal. E/A reversal consistent with but n ot diagnostic of poor LV compliance. The left ventricular wall motion is normal. Right Ventricle The right ventricle is not well visualized. Atria Normal left and right atrial size and function. Mitral Valve There is mild mitral valve thickening. There is no mitral valve stenosis. There is trace to mild khris ral regurgitation. Tricuspid Valve There is mild tricuspid valve thickening. There is no tricuspid stenosis. There is mild tricuspid regurgitation. Right ventricular systolic pressure is normal. Aortic Valve The aortic valve is not well visualized. No hemodynamically significant valvular aortic stenosis. Mi ld aortic regurgitation. Pulmonic Valve The pulmonic valve is not well visualized. Great Vessels The aortic root is normal size. Pericardium/Pleura There is no pericardial effusion. Summary Statements There is mild mitral valve thickening. There is trace to mild mitral regurgitation. Upper septal hypertrophy (sigmoid septum), normal variant. The left ventricular size, thickness and function are normal The left ventricular wall motion is normal. There is mild tricuspid regurgitation. Right ventricular systolic pressure is normal. Mild aortic regurgitation. E/A reversal consistent with but not diagnostic of poor LV compliance The left ventricular ejection fraction is normal. MD Joselito Das 06/12/2018, 1:00 PM Ordering Physician: Jessica Hernandez Referring Physician: Jessica Hernandez Performed By: Estrella Holden
--- NOTE | 2018-06-12 17:01 | HP ---
Admitting History and Physical - Admission History of Present Illness: Pt is a 67 y/o male with PMH significant for HTN, IDDM, and Hep C. Pt is a poor historianed. Pt present to the ER with low blood sugar and syncope today. For the past few weeks, the patients BS has been fluctuating and because of this he reports feeling increasingly more weak and has been experiencing a loss of appetite. He presents today s/p brief syncopal episode at home. The patient states that he was walking with his brother and suddenly became lightheaded and fell. checked his glucose and noted it to be 45. The patient was given candy and EMS was called. Pt states that he has had similiar episodes in the past few months. In the ER pt found to have UTI w/ a lactic acid ofm 3.4 with a normal WBC. Pt denies any fever/chills/dsyuria/hematuria. 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) Cardiovascular: Yes: HTN, Hyperlipdemia Hepatobiliary: Yes: Hepatitis C Infectious Disease: Yes: HIV Psych: Yes: Addictions Endocrine: Yes: Diabetes Mellitus - Smoking History Smoking history: Unknown if ever smoked Have you smoked in the past 12 months: No Aproximately how many cigarettes per day: 1 - Alcohol/Substance Use Hx Alcohol Use: No - Social History ADL: Independent History of Recent Travel: No Home Medications - Allergies Allergies/Adverse Reactions: Allergies Allergy/AdvReac Type Severity Reaction Status Date / Time No Known Allergies Allergy Verified 06/11/18 14:43 - Home Medications Home Medications: Ambulatory Orders Duloxetine HCl 30 mg PO BID 06/11/18 Insulin Degludec [Tresiba Flextouch U-100] 22 unit SQ DAILY 06/11/18 Insulin Sliding Scale [Novolog Vial Sliding Scale -] 0 units SQ TIDAC 06/11/18 Linaclotide [Linzess] 72 mcg PO DAILY 06/11/18 Meloxicam 7.5 mg PO DAILY 06/11/18 Methadone [Dolophine -] 40 mg PO DAILY 06/11/18 Mirtazapine 15 mg PO HS 06/11/18 Olmesartan Medoxomil [Benicar (Nf)] 20 mg PO DAILY 06/11/18 Olmesartan/Hydrochlorothiazide [Olmesartan-Hctz 20-12.5 mg Tab] 1 each PO DAILY 06/11/18 Rosuvastatin [Crestor -] 5 mg PO HS 06/11/18 Tizanidine HCl 4 mg PO TID 06/11/18 Family Disease History - Family Disease History Family History: Unremarkable Family Disease History: Diabetes: Mother ( age 84 from dm), Heart Disease: Father ( age 50s hx mi), Mother, Brother (8 brothers, 1 age 60s from ca), Other: Grandparent (all natural causes), Father, Brother, Sister (3 all a&w), Son (has 4 a&w), Daughter (2 a&w) Review of Systems - Review of Systems Constitutional: reports: Weakness HENT: reports: No Symptoms Neck: reports: No Symptoms Cardiovascular: reports: No Symptoms Respiratory: reports: No Symptoms Gastrointestinal: reports: No Symptoms Genitourinary: reports: No Symptoms Physical Examination Vital Signs: Vital Signs Temperature 98.4 F 06/12/18 15:05 Pulse Rate 85 06/12/18 15:05 Respiratory Rate 18 06/12/18 15:05 Blood Pressure 153/103 H 06/12/18 15:05 O2 Sat by Pulse Oximetry (%) 96 06/12/18 09:00 HENT: Yes: WNL Neck: Yes: WNL, Supple Cardiovascular: Yes: WNL, Regular Rate and Rhythm Respiratory: Yes: WNL, Regular, CTA Bilaterally Gastrointestinal: Yes: WNL, Normal Bowel Sounds, Soft Musculoskeletal: Yes: WNL Extremities: Yes: WNL Edema: No Neurological: Yes: WNL, Alert, Oriented ...Motor Strength: WNL Labs: CBC, BMP 06/12/18 05:30 06/12/18 05:30 Problem List - Problems (1) Syncope Assessment/Plan: Probably due to hypoglycemia Cont sliding scale w/ insulin Endo consult Will also get cardio consult to r/o cardiogenic syncope Check echo Code(s): R55 - SYNCOPE AND COLLAPSE (2) Sepsis Assessment/Plan: Lactic acidosis Due to UTI Cont IV antibxs Follow cultures ID consult Code(s): A41.9 - SEPSIS, UNSPECIFIED ORGANISM (3) DM Diabetes mellitus type 2 Assessment/Plan: Cont sliding scale w/ coverge Check HgA1c Code(s): E11.9 - TYPE 2 DIABETES MELLITUS WITHOUT COMPLICATIONS (4) Polyneuropathy Code(s): G62.9 - POLYNEUROPATHY, UNSPECIFIED (5) HTN (hypertension) Code(s): I10 - ESSENTIAL (PRIMARY) HYPERTENSION (6) Osteoarthritis Code(s): M19.90 - UNSPECIFIED OSTEOARTHRITIS, UNSPECIFIED SITE
[2018-06-12] MEDS ORDERED: LINACLOTIDE PO SCH (18:30)
[2018-06-12] MEDS: MIRTAZAPINE 15 MG TABLET (FP) PO SCH (21:31)
[2018-06-12] MEDS: ROSUVASTATIN CA 5 MG TABLET (FP) PO SCH (22:50)
[2018-06-13] MEDS ORDERED: METHADONE HCL 10 MG TABLET ONE (05:09)
[2018-06-13] MEDS ORDERED: INSULIN (NOVOLOG) ASPART 100 UNITS/ML 10ML VIAL ONE ×3 (05:10→21:09)
[2018-06-13] MEDS ORDERED: METHADONE HCL 40 MG DISPERSABLE TABLET ONE (05:10)
[2018-06-13] MEDS: METHADONE 40 MG, METHADONE 10 MG PO SCH (05:20)
--- NOTE | 2018-06-13 08:42 | PN ---
Progress Note, Physician History of Present Illness: doing well stable no new issues - Current Medication List Current Medications: Active Medications Duloxetine HCl (Cymbalta -) 30 mg PO BID [facility] Last Admin: 06/12/18 21:31 Dose: 30 mg Heparin Sodium (Porcine) (Heparin -) 5,000 unit SQ BID [facility] Last Admin: 06/12/18 21:30 Dose: 5,000 unit Hydrochlorothiazide (Hctz -) 12.5 mg PO DAILY [facility] Last Admin: 06/12/18 12:13 Dose: 12.5 mg Insulin Aspart (Novolog Vial Sliding Scale -) 1 vial SQ [facility]; Protocol Last Admin: 06/12/18 21:30 Dose: 8 units Methadone HCl 40 mg/ Methadone (HCl 10 mg) 50 mg PO DAILY@0600 [facility] Last Admin: 06/13/18 05:20 Dose: 50 mg Mirtazapine (Remeron -) 15 mg PO HS [facility] Last Admin: 06/12/18 21:31 Dose: 15 mg Ptnt's Own Med ( Linaclotide [Linzess ] 72 Mcg) 0 mcg PO DAILY [facility] Rosuvastatin Calcium (Crestor -) 5 mg PO HS [facility] Last Admin: 06/12/18 22:50 Dose: 5 mg Valsartan (Diovan -) 160 mg PO DAILY [facility] Last Admin: 06/12/18 12:13 Dose: 160 mg - Objective Vital Signs: Vital Signs Temperature 98.8 F 06/13/18 08:30 Pulse Rate 83 06/13/18 08:30 Respiratory Rate 20 06/13/18 08:30 Blood Pressure 136/94 06/13/18 08:30 O2 Sat by Pulse Oximetry (%) 96 06/12/18 09:00 Constitutional: Yes: No Distress, Calm Cardiovascular: Yes: Regular Rate and Rhythm Respiratory: Yes: Regular, CTA Bilaterally Gastrointestinal: Yes: Normal Bowel Sounds, Soft Musculoskeletal: Yes: WNL Extremities: Yes: WNL Neurological: Yes: Alert, Oriented Psychiatric: Yes: Alert, Oriented Labs: CBC, BMP 06/12/18 05:30 06/12/18 05:30 INR, PTT INR 0.91 (0.83-1.09) 06/11/18 15:30 Assessment/Plan Problem List - Problems (1) Syncope Code(s): R55 - SYNCOPE AND COLLAPSE (2) Sepsis Code(s): A41.9 - SEPSIS, UNSPECIFIED ORGANISM (3) DM Diabetes mellitus type 2 Code(s): E11.9 - TYPE 2 DIABETES MELLITUS WITHOUT COMPLICATIONS (4) Polyneuropathy Code(s): G62.9 - POLYNEUROPATHY, UNSPECIFIED (5) HTN (hypertension) Code(s): I10 - ESSENTIAL (PRIMARY) HYPERTENSION (6) Osteoarthritis Code(s): M19.90 - UNSPECIFIED OSTEOARTHRITIS, UNSPECIFIED SITE plan awaiting cx report continue to monitor rest as per the team and cardio
[2018-06-13 08:58] LABS: EOS % 1.7 % (0-4.5); HEMATOCRIT 37.3 % (35.4-49); HEMOGLOBIN 11.8 GM/dL (11.7-16.9); MCH 28.4 pg (25.7-33.7); MCHC 31.7 g/dl (32.0-35.9); MEAN CELL VOLUME 89.6 fl (80-96); MEAN PLT VOLUME 8.5 fl (7.5-11.1); MONO % 9.6 % (3.8-10.2); NEUT % 46.7 % (42.8-82.8); PLATELET COUNT 177 K/MM3 (134-434); RBC 4.17 M/mm3 (4.00-5.60); WHITE BLOOD COUNT 4.6 K/mm3 (4.0-10.0)
--- NOTE | 2018-06-13 09:07 | PN ---
Progress Note, Physician Chief Complaint: no CP or SOB History of Present Illness: Echo normal EF, no sig valve dz Carotid US moderate Plaque b/l no sig stenosis - Current Medication List Current Medications: Active Medications Duloxetine HCl (Cymbalta -) 30 mg PO BID [facility] Last Admin: 06/12/18 21:31 Dose: 30 mg Heparin Sodium (Porcine) (Heparin -) 5,000 unit SQ BID [facility] Last Admin: 06/12/18 21:30 Dose: 5,000 unit Hydrochlorothiazide (Hctz -) 12.5 mg PO DAILY [facility] Last Admin: 06/12/18 12:13 Dose: 12.5 mg Insulin Aspart (Novolog Vial Sliding Scale -) 1 vial SQ ACHS [facility]; Protocol Last Admin: 06/12/18 21:30 Dose: 8 units Methadone HCl 40 mg/ Methadone (HCl 10 mg) 50 mg PO DAILY@0600 [facility] Last Admin: 06/13/18 05:20 Dose: 50 mg Mirtazapine (Remeron -) 15 mg PO HS [facility] Last Admin: 06/12/18 21:31 Dose: 15 mg Ptnt's Own Med ( Linaclotide [Linzess ] 72 Mcg) 0 mcg PO DAILY [facility] Rosuvastatin Calcium (Crestor -) 5 mg PO HS [facility] Last Admin: 06/12/18 22:50 Dose: 5 mg Valsartan (Diovan -) 160 mg PO DAILY [facility] Last Admin: 06/12/18 12:13 Dose: 160 mg - Objective Vital Signs: Vital Signs Temperature 98.8 F 06/13/18 08:30 Pulse Rate 83 06/13/18 08:30 Respiratory Rate 20 06/13/18 08:30 Blood Pressure 136/94 06/13/18 08:30 O2 Sat by Pulse Oximetry (%) 96 06/12/18 09:00 Constitutional: Yes: No Distress, Calm Eyes: Yes: Conjunctiva Clear Cardiovascular: Yes: Regular Rate and Rhythm Respiratory: Yes: CTA Bilaterally Gastrointestinal: Yes: Soft Edema: No Neurological: Yes: Alert, Oriented Labs: CBC, BMP 06/13/18 08:24 INR, PTT INR 0.91 (0.83-1.09) 06/11/18 15:30 Microbiology 06/11/18 15:40 Blood - Peripheral Venous Blood Culture - Preliminary NO GROWTH OBTAINED AFTER 24 HOURS, INCUBATION TO CONTINUE FOR 4 DAYS. 06/11/18 15:40 Blood - Peripheral Venous Blood Culture - Preliminary NO GROWTH OBTAINED AFTER 24 HOURS, INCUBATION TO CONTINUE FOR 4 DAYS. Laboratory Tests 06/13/18 06/13/18 06/13/18 08:24 08:24 08:24 WBC 4.6 Hgb 11.8 Hct 37.3 Plt Count 177 Sodium Pending Potassium Pending Chloride Pending Carbon Dioxide Pending Anion Gap Pending BUN Pending Creatinine Pending Creat Clearance w eGFR Pending Random Glucose Pending Lactic Acid Pending Calcium Pending Total Bilirubin Pending AST Pending ALT Pending Alkaline Phosphatase Pending Total Protein Pending Albumin Pending - ....Imaging Other: Other (Holter pending) Assessment/Plan IMP: DM Presyncope in setting hypoglycemia REC: Normal LV fx and no obstructive Carotid Plaque. Await Holter- doubt rhythm issue. ASA 81mg daily if no medical contraindication (DM/ CT with old CVA)
[2018-06-13] MEDS: DULoxetine HCL 30 MG CAPSULE.DR (FP) PO SCH ×2 (09:12→21:23)
[2018-06-13] MEDS: VALSARTAN 160 MG TABLET (UD) PO SCH (09:12)
[2018-06-13] MEDS: HYDROCHLOROTHIAZIDE 12.5 MG CAPSULE (FP) PO SCH (09:12)
[2018-06-13] MEDS: HEPARIN NA (PORCINE) 5,000 UNITS/ML 1ML VIAL SQ SCH ×2 (09:12→21:24)
[2018-06-13] MEDS: LINACLOTIDE PO SCH (09:13)
[2018-06-13] MEDS: ASPIRIN 81 MG CHEWABLE TABLETS PO SCH (09:20)
[2018-06-13 09:28] LABS: BLOOD UREA NITROGEN 13 mg/dL (7-18); CREATININE 0.9 mg/dL (0.55-1.3); GLUCOSE,RANDOM 97 mg/dL (74-106)
[2018-06-13 09:29] LABS: ALBUMIN 3.6 g/dl (3.4-5.0); ALK PHOS 94 U/L (45-117); ANION GAP 9 MMOL/L (8-16); BILIRUBIN,TOTAL 0.6 mg/dL (0.2-1); CHLORIDE 100 mmol/L (98-107); CO2 28 mmol/L (21-32); POTASSIUM 4.1 mmol/L (3.5-5.1); SGOT/AST 86 U/L (15-37); SGPT/ALT 52 U/L (13-61); SODIUM 137 mmol/L (136-145); TOT PROT 7.6 g/dl (6.4-8.2)
[2018-06-13] MEDS ORDERED: PT OWN MED DRAWER 7, Y5N ONE (10:21)
[2018-06-13] MEDS: INSULIN SLIDING SCALE (NOVOLOG) 1 VIAL SQ SCH ×3 (11:23→21:27)
--- NOTE | 2018-06-13 15:50 | HOL ---
Hook-up date: 2018-06-12 10:58:00 Duration: 24:00:00 Test Indications: PRESYNCOPE Medications: 123946 QRS complexes 568 Ventricular ectopics which represent <1 % of total QRS comp. 59 Supraventricular ectopics which represent <1 % of total QRS comp. * Paced QRS complexs which represent % of total QRS comp. * % of Time Classified as Noise VENTRICULAR ECTOPY 561 Isolated 0 Bigeminal Cycles 1 Couplets 1 Runs 5 Beats in Runs 5 Beats LONGEST at 179 BPM at 12:28:23 2018-06-12 5 Beats FASTEST at 179 BPM at 12:28:23 2018-06-12 SUPRAVENTRICULAR ECTOPY 55 Isolated 0 Couplets 1 Runs 4 Beats in Runs 4 Beats LONGEST at 109 BPM at 02:24:27 2018-06-13 4 Beats FASTEST at 109 BPM at 02:24:27 2018-06-13 HEART RATES 65 MIN at 21:15:18 2018-06-12 81 AVG 112 MAX at 18:04:31 2018-06-12 LONGEST RR 1.160 secs at 21:14:58 2018-06-12 SCANNED BY CECILIA RICHTER ON 06/13/18 1. Baseline sinus rhythm with avg hr 81, range 65-112. 2. No significant bradycardia/pauses. 3. Occasional isolated PVCs. One run nsvt (5 beats). 4. Occasional isolated PACs. One atrial run (PAT, 4 beats). 5. No afib, aflutter, vf. 6. No symptoms reported. Confirmed by MACIEL CLAIRE, GEM ([id number]) on 06/13/2018 3:49:37 PM Referred By: ROHIT CORTES DR Overread By: GEM ST MD
[2018-06-13] MEDS: MIRTAZAPINE 15 MG TABLET (FP) PO SCH (21:24)
[2018-06-13] MEDS: ROSUVASTATIN CA 5 MG TABLET (FP) PO SCH (21:48)
--- NOTE | 2018-06-13 21:55 | PN ---
Progress Note, Physician History of Present Illness: No new complaints - Current Medication List Current Medications: Active Medications Aspirin (Asa -) 81 mg PO DAILY [facility] Last Admin: 06/13/18 09:20 Dose: 81 mg Duloxetine HCl (Cymbalta -) 30 mg PO BID [facility] Last Admin: 06/13/18 21:23 Dose: 30 mg Heparin Sodium (Porcine) (Heparin -) 5,000 unit SQ BID [facility] Last Admin: 06/13/18 21:24 Dose: 5,000 unit Hydrochlorothiazide (Hctz -) 12.5 mg PO DAILY [facility] Last Admin: 06/13/18 09:12 Dose: 12.5 mg Insulin Aspart (Novolog Vial Sliding Scale -) 1 vial SQ [facility]; Protocol Last Admin: 06/13/18 21:27 Dose: 6 units Methadone HCl 40 mg/ Methadone (HCl 10 mg) 50 mg PO DAILY@0600 [facility] Last Admin: 06/13/18 05:20 Dose: 50 mg Mirtazapine (Remeron -) 15 mg PO [facility] Last Admin: 06/13/18 21:24 Dose: 15 mg Ptnt's Own Med ( Linaclotide [Linzess ] 72 Mcg) 0 mcg PO DAILY [facility] Last Admin: 06/13/18 09:13 Dose: 72 mcg Rosuvastatin Calcium (Crestor -) 5 mg PO [facility] Last Admin: 06/13/18 21:48 Dose: 5 mg Valsartan (Diovan -) 160 mg PO DAILY [facility] Last Admin: 06/13/18 09:12 Dose: 160 mg - Objective Vital Signs: Vital Signs Temperature 98.3 F 06/13/18 16:30 Pulse Rate 87 06/13/18 16:30 Respiratory Rate 18 06/13/18 16:30 Blood Pressure 148/94 06/13/18 16:30 O2 Sat by Pulse Oximetry (%) 98 06/13/18 09:00 Constitutional: Yes: No Distress Neck: Yes: WNL, Supple Cardiovascular: Yes: WNL, Regular Rate and Rhythm Respiratory: Yes: WNL, Regular, CTA Bilaterally Gastrointestinal: Yes: WNL, Normal Bowel Sounds, Soft Labs: CBC, BMP 06/13/18 08:24 06/13/18 08:24 INR, PTT INR 0.91 (0.83-1.09) 06/11/18 15:30 Problem List - Problems (1) Syncope Assessment/Plan: Probably due to hypoglycemia Cont sliding scale w/ insulin Carotid doppler was neg for significant stenosis Echo no acute pathology CT scan head showed old CVA DC planning for am Code(s): R55 - SYNCOPE AND COLLAPSE (2) Sepsis Assessment/Plan: Repeat Lactic acid is normal Due to UTI Pt if off antibxs WBC is normal Blood cultures/urine culture remain negative Code(s): A41.9 - SEPSIS, UNSPECIFIED ORGANISM (3) DM Diabetes mellitus type 2 Assessment/Plan: Cont sliding scale w/ coverge HgA1c is 8.7 Long d/w pt about need for complaince w/ diet Pt advised to eat 3 meals a day in order to avoid hypoglycemia Code(s): E11.9 - TYPE 2 DIABETES MELLITUS WITHOUT COMPLICATIONS (4) Polyneuropathy Code(s): G62.9 - POLYNEUROPATHY, UNSPECIFIED (5) HTN (hypertension) Assessment/Plan: BP is normal Code(s): I10 - ESSENTIAL (PRIMARY) HYPERTENSION (6) Osteoarthritis Code(s): M19.90 - UNSPECIFIED OSTEOARTHRITIS, UNSPECIFIED SITE
[2018-06-14] MEDS ORDERED: METHADONE HCL 10 MG TABLET ONE (05:37)
[2018-06-14] MEDS ORDERED: METHADONE HCL 40 MG DISPERSABLE TABLET ONE (05:38)
[2018-06-14] MEDS: METHADONE 40 MG, METHADONE 10 MG PO SCH (06:00)
[2018-06-14] MEDS: INSULIN SLIDING SCALE (NOVOLOG) 1 VIAL SQ SCH ×3 (06:08→11:49)
--- NOTE | 2018-06-14 10:15 | PN ---
Progress Note, Physician Chief Complaint: no chest pain or SOB - Current Medication List Current Medications: Active Medications Aspirin (Asa -) 81 mg PO DAILY [facility] Last Admin: 06/13/18 09:20 Dose: 81 mg Duloxetine HCl (Cymbalta -) 30 mg PO BID [facility] Last Admin: 06/13/18 21:23 Dose: 30 mg Heparin Sodium (Porcine) (Heparin -) 5,000 unit SQ BID [facility] Last Admin: 06/13/18 21:24 Dose: 5,000 unit Hydrochlorothiazide (Hctz -) 12.5 mg PO DAILY [facility] Last Admin: 06/13/18 09:12 Dose: 12.5 mg Insulin Aspart (Novolog Vial Sliding Scale -) 1 vial SQ [facility]; Protocol Last Admin: 06/14/18 08:10 Dose: Not Given Methadone HCl 40 mg/ Methadone (HCl 10 mg) 50 mg PO DAILY@0600 [facility] Last Admin: 06/14/18 06:00 Dose: 50 mg Mirtazapine (Remeron -) 15 mg PO [facility] Last Admin: 06/13/18 21:24 Dose: 15 mg Ptnt's Own Med ( Linaclotide [Linzess ] 72 Mcg) 0 mcg PO DAILY [facility] Last Admin: 06/13/18 09:13 Dose: 72 mcg Rosuvastatin Calcium (Crestor -) 5 mg PO [facility] Last Admin: 06/13/18 21:48 Dose: 5 mg Valsartan (Diovan -) 160 mg PO DAILY [facility] Last Admin: 06/13/18 09:12 Dose: 160 mg - Objective Vital Signs: Vital Signs Temperature 98.1 F 06/14/18 06:00 Pulse Rate 83 06/14/18 06:00 Respiratory Rate 18 06/14/18 06:00 Blood Pressure 136/79 06/14/18 06:00 O2 Sat by Pulse Oximetry (%) 97 06/13/18 21:00 Constitutional: Yes: Calm Cardiovascular: Yes: Regular Rate and Rhythm Respiratory: Yes: CTA Bilaterally Gastrointestinal: Yes: Soft Edema: No Neurological: Yes: Alert, Oriented Labs: CBC, BMP 06/13/18 08:24 06/13/18 08:24 INR, PTT INR 0.91 (0.83-1.09) 06/11/18 15:30 Assessment/Plan IMP: DM Presyncope in setting hypoglycemia REC: Normal LV fx and no obstructive Carotid Plaque. Holter with no sig arrhythmias. ASA 81mg daily if no medical contraindication (DM/ CT with old CVA)
--- NOTE | 2018-06-14 11:06 | PN ---
Progress Note, Physician History of Present Illness: patient stable no new issues - Current Medication List Current Medications: Active Medications Aspirin (Asa -) 81 mg PO DAILY [facility] Last Admin: 06/13/18 09:20 Dose: 81 mg Duloxetine HCl (Cymbalta -) 30 mg PO BID [facility] Last Admin: 06/13/18 21:23 Dose: 30 mg Heparin Sodium (Porcine) (Heparin -) 5,000 unit SQ BID [facility] Last Admin: 06/13/18 21:24 Dose: 5,000 unit Hydrochlorothiazide (Hctz -) 12.5 mg PO DAILY [facility] Last Admin: 06/13/18 09:12 Dose: 12.5 mg Insulin Aspart (Novolog Vial Sliding Scale -) 1 vial SQ [facility]; Protocol Last Admin: 06/14/18 08:10 Dose: Not Given Methadone HCl 40 mg/ Methadone (HCl 10 mg) 50 mg PO DAILY@0600 [facility] Last Admin: 06/14/18 06:00 Dose: 50 mg Mirtazapine (Remeron -) 15 mg PO [facility] Last Admin: 06/13/18 21:24 Dose: 15 mg Ptnt's Own Med ( Linaclotide [Linzess ] 72 Mcg) 0 mcg PO DAILY [facility] Last Admin: 06/13/18 09:13 Dose: 72 mcg Rosuvastatin Calcium (Crestor -) 5 mg PO [facility] Last Admin: 06/13/18 21:48 Dose: 5 mg Valsartan (Diovan -) 160 mg PO DAILY [facility] Last Admin: 06/13/18 09:12 Dose: 160 mg - Objective Vital Signs: Vital Signs Temperature 98.1 F 06/14/18 06:00 Pulse Rate 83 06/14/18 06:00 Respiratory Rate 18 06/14/18 06:00 Blood Pressure 136/79 06/14/18 06:00 O2 Sat by Pulse Oximetry (%) 97 06/13/18 21:00 Constitutional: Yes: No Distress, Calm Cardiovascular: Yes: Regular Rate and Rhythm Respiratory: Yes: Regular, CTA Bilaterally Gastrointestinal: Yes: Normal Bowel Sounds, Soft Musculoskeletal: Yes: WNL Extremities: Yes: WNL Neurological: Yes: Alert, Oriented Psychiatric: Yes: Alert, Oriented Labs: CBC, BMP 06/13/18 08:24 06/13/18 08:24 INR, PTT INR 0.91 (0.83-1.09) 06/11/18 15:30 Assessment/Plan Problem List - Problems (1) Syncope Code(s): R55 - SYNCOPE AND COLLAPSE (2) Sepsis Code(s): A41.9 - SEPSIS, UNSPECIFIED ORGANISM (3) DM Diabetes mellitus type 2 Code(s): E11.9 - TYPE 2 DIABETES MELLITUS WITHOUT COMPLICATIONS (4) Polyneuropathy Code(s): G62.9 - POLYNEUROPATHY, UNSPECIFIED (5) HTN (hypertension) Code(s): I10 - ESSENTIAL (PRIMARY) HYPERTENSION (6) Osteoarthritis Code(s): M19.90 - UNSPECIFIED OSTEOARTHRITIS, UNSPECIFIED SITE plan all reports noted continue current mgmt patient stable
[2018-06-14] MEDS ORDERED: PT OWN MED DRAWER 7, Y5N ONE (11:28)
[2018-06-14] MEDS: VALSARTAN 160 MG TABLET (UD) PO SCH (11:34)
[2018-06-14] MEDS: HYDROCHLOROTHIAZIDE 12.5 MG CAPSULE (FP) PO SCH (11:34)
[2018-06-14] MEDS: ASPIRIN 81 MG CHEWABLE TABLETS PO SCH (11:34)
[2018-06-14] MEDS: DULoxetine HCL 30 MG CAPSULE.DR (FP) PO SCH (11:34)
[2018-06-14] MEDS: LINACLOTIDE PO SCH (11:35)
[2018-06-14] MEDS: HEPARIN NA (PORCINE) 5,000 UNITS/ML 1ML VIAL SQ SCH (11:35)
[2018-06-14 12:38] VITALS: BP 140/94; PULSE 72; TEMP 98
== END 2018-06-14 14:32 | disposition home or self-care (01) | DRG 638 ==
LOC: JER 14:31 → JERBED 18:03 → J8W 20:28
PROVIDERS: ADMIT Internal Medicine; ATTEND Internal Medicine
DX: E11.649 Type 2 diabetes mellitus with hypoglycemia without coma (principal); E87.2 Acidosis; I10 Essential (primary) hypertension; N17.9 Acute kidney failure, unspecified; E78.5 Hyperlipidemia, unspecified; R55 Syncope and collapse; E11.42 Type 2 diabetes mellitus with diabetic polyneuropathy; M19.90 Unspecified osteoarthritis, unspecified site; I95.9 Hypotension, unspecified; Z86.19 Personal history of other infectious and parasitic diseases
CPT/HCPCS: 36415; 70450-TC; 71045-TC-FY; 80053; 81003; 82550; 82803; 82962; 83036; 83605; 84443; 84484; 85025; 85610; 85730; 87040; 87086; 93005; 93010; 93225; 93226; 93306-TC; 93880-TC; 99285-25; J1644

== ENCOUNTER 2020-04-27 21:25 | Inpatient (IN) | payer OTHER ==
--- NOTE | 2020-04-27 21:50 | PDOC ---
History of Present Illness - General Stated Complaint: AMS/POSS STROKE - History of Present Illness Initial Comments: HPI: 67yo man with a PMH of HTN, HLD, IDDM (previous admission for DKA in 08/30), HepC (treated) who presents from home today following an episode of weakness, lig htheadedness, and hypoglycemia around 7pm today. Per patient, he checked his glucose level around 7pm and it was noted to be low. Thereafter, his called for an ambulance. Patient arrived to this ED and Code Terry was initiated for dysarthria and left-sided nasiolabial flattening. By the time I saw the patient, he was without acute neurologic findings. Stated he: "feels alright." No fevers, chills, chest pain, or shortness of breath. PCP: Dr. Garfield Ko ROS: Constitutional: no fever, no chills HEENT: no throat pain, no dysphagia Cardiovascular: no chest pain, no palpitations Respiratory: no cough, no shortness of breath Gastrointestinal: no abdominal pain, no nausea Genitourinary: no dysuria, no hematuria Musculoskeletal: no myalgia, no arthralgia Skin: no rash, no itching Neurologic: no headache, +weakness Psych: no agitation, no anxiety PE: General: Awake, alert, and fully oriented, in no acute distress Head: No signs of trauma Eyes: EOMI, sclera anicteric ENT: Moist mucus membranes Neck: Normal ROM, supple Lungs: Lungs clear, Normal breath sounds Cardio: Regular rhythm, S1 and S2 present Abdomen: Soft, nontender Extremities: Normal range of motion, Distal pulses present Skin: Warm, Dry, normal turgor Neurologic: Please see NIHSS ED Course/MDM: DDX including but not limited to CVA/TIA, metabolic derangement, anemia Code Terry initiated; providers previous assessment: NIHSS 5 My assessment: NIHSS 2 Last known normal: 7pm Not a TPA candidate as symptoms too mild Labs, EKG, CT Head Admission 04/27/20 21:50 CT Head with no acute pathology: "EXAM#: TYPE/EXAM: RESULT: [id number] CT/HEAD CT (STROKE) Rule out stroke CT scan of the brain. A noncontrast CT scan of the brain was performed. Compared to prior CT scan of the head dated 05/25 Th ere is moderate volume loss and ventricular dilatation. Moderate chronic microvascular ischemic changes are present. Focal low-attenuation density in the right thalamus consistent with a lacunar infarct, of indeterminate age. There is also suggestion of a left anterior periventricular lacunar infarct, of i ndeterminate age, likely chronic. Otherwise, no mass lesion, gross acute infarct or intracranial hem orrhage are identified. Visualized paranasal sinuses and mastoid air cells are well aerated. Calcification of the cavernous carotid arteries are noted. The calvarium is intact . Impression: Right thalamus and left anterior periventricular lacunar infarct of indeterminate age. No mass lesion or intracranial hemorrhage are identified. Case discussed with Dr. Pena, caring physician in the emergency room " Attempted to contact patent's for collateral information, but no answer. Left a voicemail requesting callback. 04/27/20 21:52 EKG: rate 84, Qtc 470, NSR CBC WBC 5.6 K/mm3 (4.0-10.0) 04/27/20 22:00 RBC 4.58 M/mm3 (4.00-5.60) 04/27/20 22:00 Hgb 13.2 GM/dL (11.7-16.9) 04/27/20 22:00 Hct 40.2 % (35.4-49) 04/27/20 22:00 MCV 87.8 fl (80-96) 04/27/20 22:00 MCH 28.8 pg (25.7-33.7) 04/27/20 22:00 MCHC 32.8 g/dl (32.0-35.9) 04/27/20 22:00 RDW 16.6 % (11.9-15.9) H 04/27/20 22:00 Plt Count 203 K/MM3 (134-434) 04/27/20 22:00 MPV 8.7 fl (7.5-11.1) 04/27/20 22:00 Absolute Neuts (auto) 3.2 K/mm3 (1.5-8.0) 04/27/20 22:00 Neutrophils % 56.9 % (42.8-82.8) D 04/27/20 22:00 Lymphocytes % 32.4 % (8-40) D 04/27/20 22:00 Monocytes % 8.0 % (3.8-10.2) 04/27/20 22:00 Eosinophils % 1.5 % (0-4.5) 04/27/20 22:00 Basophils % 1.2 % (0-2.0) 04/27/20 22:00 Nucleated RBC % 0 % (0-0) 04/27/20 22:00 No leukocytosis or anemia CMP Sodium 136 mmol/L (136-145) 04/27/20 22:00 Potassium 4.7 mmol/L (3.5-5.1) 04/27/20 22:00 Chloride 102 mmol/L (98-107) 04/27/20 22:00 Carbon Dioxide 31 mmol/L (21-32) 04/27/20 22:00 Anion Gap 3 MMOL/L (8-16) L 04/27/20 22:00 BUN 10.4 mg/dL (7-18) 04/27/20 22:00 Creatinine 1.1 mg/dL (0.55-1.3) 04/27/20 22:00 Est GFR (CKD-EPI)AfAm 78.41 04/27/20 22:00 Est GFR (CKD-EPI)NonAf 67.66 04/27/20 22:00 POC Glucometer 153 UNITS (80-120) 04/27/20 22:15 Random Glucose 147 mg/dL (74-106) H 04/27/20 22:00 Calcium 9.3 mg/dL (8.5-10.1) 04/27/20 22:00 Total Bilirubin 0.3 mg/dL (0.2-1) 04/27/20 22:00 AST 13 U/L (15-37) L 04/27/20 22:00 ALT 16 U/L (13-61) 04/27/20 22:00 Alkaline Phosphatase 81 U/L (45-117) 04/27/20 22:00 Creatine Kinase 71 U/L (26-308) 04/27/20 22:00 Troponin I < 0.02 ng/ml (0.00-0.05) 04/27/20 22:00 Total Protein 9.3 g/dl (6.4-8.2) H 04/27/20 22:00 Albumin 4.8 g/dl (3.4-5.0) 04/27/20 22:00 Electrolytes unremarkable Normal Cr No transaminitis Tpn undetectable Laboratory Tests 04/28/20 00:00 Urine Color Yellow Urine Appearance Clear Urine pH 5.0 Ur Specific [place] 1.038 H Urine Protein Negative Urine Glucose (UA) 3+ H Urine Ketones Negative Urine Blood Negative Urine Nitrite Negative Urine Bilirubin Negative Urine Urobilinogen 0.2 Ur Leukocyte Esterase Negative CXR without acute pathology, my impression Discussed case with Dr. Peres who agreed with recommendation for stroke floor admission Discussed case with Dr. Hernandez who accepted patient for admission under herself 04/28/20 01:03 tPA Exclusion Checklist 0-3hr - Time Elapsed Date last known well: 04/27/20 Time last known well: 19:00 Elaspsed time: Day(s) and 9 Hour(s) and 6 Minutes - Thrombolytic Therapy Candidate Is the patient eligible for Thrombolytic Therapy?: No - Relative Exclusion Criteria 0-3h Stroke severity too mild (non-disabling): Yes - Ineligibility reason(s) Reasons No tPA given: See reason(s) noted above NIH Stroke Scale - Last Known Well Date/Time & Onset Date Last Known Well: 04/27/20 Time Last Known Well: 19:00 - Initial Evaluation Level of consciousness: Alert Ask patient the month and their age: Answers both correctly Ask patient to open & close eyes; make fist and let go: Obeys both correctly Best gaze (horizontal eye movement): Normal Visual field testing: No visual field loss Facial paresis (Show teeth/raise eyebrows/close eyes tight): Normal symmetrical movement Motor Function: Left Arm: Normal Motor Function: Right Arm: Normal (extends arm 90 (or 45) degrees for 10 seconds without drift Motor Function: Left Leg: Drift Motor Function: Right Leg: Drift Limb Ataxia: No ataxia Sensory(Use pinprick test arms,legs,trunk,face/side to side): Normal Best language (Describe picture, name items, read sentences): No Aphasia Dysarthria (read several words): Normal articulation Extinction and Inattention: No abnormality - Total Score NIH Stroke Scale Score: 2 Past History - Medical History Allergies/Adverse Reactions: Allergies Allergy/AdvReac Type Severity Reaction Status Date / Time No Known Allergies Allergy Verified 04/27/20 21:51 Home Medications: Ambulatory Orders Duloxetine HCl 30 mg PO BID 06/11/18 Insulin Degludec [Tresiba Flextouch U-100] 22 unit SQ DAILY 06/11/18 Insulin Sliding Scale [Novolog Vial Sliding Scale -] 0 units SQ TIDAC 06/11/18 Linaclotide [Linzess] 72 mcg PO DAILY 06/11/18 Methadone [Dolophine -] 40 mg PO DAILY 06/11/18 Mirtazapine 15 mg PO HS 06/11/18 Olmesartan Medoxomil [Benicar -] 20 mg PO DAILY 06/11/18 Olmesartan/Hydrochlorothiazide [Olmesartan-Hctz 20-12.5 mg Tab] 1 each PO DAILY 06/11/18 Rosuvastatin [Crestor -] 5 mg PO HS 06/11/18 Aspirin [ASA -] 81 mg PO DAILY #30 tab.chew 06/14/18 Anemia: No Asthma: No Cancer: No Cardiac Disorders: Yes (hx high bp, advised to get stents) CVA: No COPD: No CHF: No Dementia: No Diabetes: Yes GI Disorders: Yes (?ulcers) Disorders: No HTN: Yes Hypercholesterolemia: Yes Liver Disease: Yes (Hep C) Seizures: Yes Thyroid Disease: No - Surgical History Abdominal Surgery: No Appendectomy: No Cardiac Surgery: No Cholecystectomy: No Lung Surgery: No Neurologic Surgery: No Orthopedic Surgery: Yes (R knee surgery 01/25/12 = biopsy) - Psycho-Social/Smoking History Smoking History: Unknown if ever smoked Have you smoked in the past 12 months: No Number of Cigarettes Smoked Daily: 1 Cigars Per Day: 0 'Breaking Loose' booklet given: 07/07/15 ED Treatment Course - LABORATORY CBC & Chemistry Diagram: 04/27/20 22:00 04/27/20 22:00 - RADIOLOGY Radiology Studies Ordered: Category Date Time Status CHEST X-RAY PORTABLE* [RAD] Stat Radiology 04/27/20 21:50 Ordered Discharge - Discharge Information Problems reviewed: Yes Clinical Impression/Diagnosis: Altered mental status Qualifiers: Altered mental status type: unspecified Qualified Code(s): R41.82 - Altered mental status, unspecified Condition: Guarded - Admission Yes - Follow up/Referral - Patient Discharge Instructions - Post Discharge Activity
[2020-04-27 21:51] VITALS: BMI 21.7
--- NOTE | 2020-04-27 21:54 | PDOC ---
Attending Attestation - Resident Resident Name: Jessica Pena - ED Attending Attestation I have performed the following: I have examined & evaluated the patient, The case was reviewed & discussed with the resident, I agree w/resident's findings & plan - HPI HPI: 04/27/20 22:31 see resident hpi - Physicial Exam PE: 04/27/20 22:31 see resident exam - Medical Decision Making 04/27/20 22:31 69-year-old male with an episode of altered mental status per Patient was thought to have an episode of a aphasia, code alegria activated on arrival Patient is completely resolved with no localizing symptoms Per patient his blood sugar was low at the time he felt unwell We will plan for admission for further evaluation Initial CT scan negative for acute findings Discharge - Discharge Information Problems reviewed: Yes Clinical Impression/Diagnosis: Transient ischemic attack - Follow up/Referral Referrals: Garfield Ko MD [Primary Care Provider] - - Patient Discharge Instructions - Post Discharge Activity
[2020-04-27] MEDS: SODIUM CHLORIDE 1,000 ML IV SCH (22:30)
[2020-04-27 22:40] LABS: BASO % 1.2 % (0-2.0); EOS % 1.5 % (0-4.5); HEMATOCRIT 40.2 % (35.4-49); HEMOGLOBIN 13.2 GM/dL (11.7-16.9); LYMPH % 32.4 % (8-40); MCH 28.8 pg (25.7-33.7); MCHC 32.8 g/dl (32.0-35.9); MEAN CELL VOLUME 87.8 fl (80-96); MEAN PLT VOLUME 8.7 fl (7.5-11.1); NEUT % 56.9 % (42.8-82.8); PLATELET COUNT 203 K/MM3 (134-434); RBC 4.58 M/mm3 (4.00-5.60); RDW 16.6 % (11.9-15.9); WHITE BLOOD COUNT 5.6 K/mm3 (4.0-10.0)
[2020-04-27 22:50] LABS: INR 0.96 (0.83-1.09); PROTHROMBIN TIME (PATIENT) 11.3 SEC (9.7-13.0)
[2020-04-27 22:53] LABS: ACTIVATED PTT 32.9 SECONDS (25.2-36.5)
[2020-04-27 23:08] LABS: ALBUMIN 4.8 g/dl (3.4-5.0); ALK PHOS 81 U/L (45-117); BILIRUBIN,TOTAL 0.3 mg/dL (0.2-1); BLOOD UREA NITROGEN 10.4 mg/dL (7-18); CALCIUM 9.3 mg/dL (8.5-10.1); CHLORIDE 102 mmol/L (98-107); CO2 31 mmol/L (21-32); GLUCOSE,RANDOM 147 mg/dL (74-106); POTASSIUM 4.7 mmol/L (3.5-5.1); SGOT/AST 13 U/L (15-37); SGPT/ALT 16 U/L (13-61)
[2020-04-27 23:43] LABS: ANION GAP 3 MMOL/L (8-16); CREATININE 1.1 mg/dL (0.55-1.3); SODIUM 136 mmol/L (136-145); TOT PROT 9.3 g/dl (6.4-8.2)
[2020-04-28 00:33] LABS: URINE APPEARANCE CLEAR; URINE BILIRUBIN NEGATIVE (NEGATIVE); URINE COLOR YELLOW; URINE GLUCOSE (UA) 3+ (NEGATIVE); URINE KETONE NEGATIVE (NEGATIVE); URINE LEUK ESTERASE NEGATIVE (NEGATIVE); URINE NITRITE NEGATIVE (NEGATIVE); URINE PROTEIN NEGATIVE (NEGATIVE); URINE UROBILINOGEN 0.2 mg/dL (0.2-1.0)
--- NOTE | 2020-04-28 09:03 | EKG ---
Test Reason : Blood Pressure : / mmHG Vent. Rate : 084 BPM Atrial Rate : 084 BPM P-R Int : 126 ms QRS Dur : 082 ms QT Int : 398 ms P-R-T Axes : 035 -39 032 degrees QTc Int : 470 ms NORMAL SINUS RHYTHM LEFT AXIS DEVIATION ABNORMAL ECG WHEN COMPARED WITH ECG OF 11-JUN-2018 15:36, NONSPECIFIC T WAVE ABNORMALITY NO LONGER EVIDENT IN ANTERIOR LEADS Confirmed by MD MADINA, JEFFREY ([id number]) on 04/28/2020 9:03:33 AM Referred By: Confirmed By:JEFFREY PAINTER MD
[2020-04-28] MEDS ORDERED: LOSARTAN POTASSIUM 50 MG TABLET PO SCH (10:00)
[2020-04-28] MEDS ORDERED: METHADONE HCL 40 MG DISPERSABLE TABLET PO SCH (10:00)
[2020-04-28] MEDS: ASPIRIN 81 MG CHEWABLE TABLETS PO SCH (10:30)
[2020-04-28] MEDS: DULoxetine HCL 30 MG CAPSULE.DR PO SCH ×2 (10:30→21:56)
[2020-04-28] MEDS ORDERED: ASPIRIN 81 MG CHEWABLE TABLETS ONE (10:45)
[2020-04-28] MEDS ORDERED: THIAMINE HCL 100 MG TABLET (FP) ONE (10:45)
[2020-04-28] MEDS ORDERED: LOSARTAN POTASSIUM 50 MG TABLET ONE (10:45)
[2020-04-28] MEDS ORDERED: HEPARIN NA (PORCINE) 5,000 UNITS/ML 1ML VIAL ONE (10:46)
[2020-04-28] MEDS ORDERED: DULoxetine HCL 30 MG CAPSULE.DR PO ONE (10:46)
[2020-04-28] MEDS ORDERED: amLODIPine BESYLATE 5 MG TABLET (FP) ONE (14:20)
--- NOTE | 2020-04-28 14:22 | CON.CARD ---
Consult Consult Specialty:: Cardiology - History of Present Illness History of Present Illness: 67yo man with a PMH of HTN, HLD, IDDM (previous admission for DKA in 08/30), HepC (treated) who presents from home today following an episode of weakness, lightheadedness, and hypoglycemia around 7pm today. Per patient, he checked his glucose level around 7pm and it was noted to be low. Thereafter, his called for an ambulance. Patient arrived to this ED and Code Terry was initiated for dysarthria and left-sided nasiolabial flattening. 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) Cardio/Vascular: Yes: HTN, Hyperlipdemia Hepatobiliary: Yes: Hepatitis C Infectious Disease: Yes: HIV Psych: Yes: Addictions Endocrine: Yes: Diabetes Mellitus - Alcohol/Substance Use Hx Alcohol Use: No - Smoking History Smoking history: Unknown if ever smoked Have you smoked in the past 12 months: No Aproximately how many cigarettes per day: 1 - Social History Usual Living Arrangement: With Significant Other ADL: Independent History of Recent Travel: No Home Medications - Allergies Allergies/Adverse Reactions: Allergies Allergy/AdvReac Type Severity Reaction Status Date / Time No Known Allergies Allergy Verified 04/27/20 21:51 - Home Medications Home Medications: Ambulatory Orders Duloxetine HCl 30 mg PO BID 06/11/18 Insulin Degludec [Tresiba Flextouch U-100] 22 unit SQ DAILY 06/11/18 Insulin Sliding Scale [Novolog Vial Sliding Scale -] 0 units SQ TIDAC 06/11/18 Linaclotide [Linzess] 72 mcg PO DAILY 06/11/18 Methadone [Dolophine -] 40 mg PO DAILY 06/11/18 Mirtazapine 15 mg PO HS 06/11/18 Olmesartan Medoxomil [Benicar -] 20 mg PO DAILY 06/11/18 Olmesartan/Hydrochlorothiazide [Olmesartan-Hctz 20-12.5 mg Tab] 1 each PO DAILY 06/11/18 Rosuvastatin [Crestor -] 5 mg PO HS 06/11/18 Aspirin [ASA -] 81 mg PO DAILY #30 tab.chew 06/14/18 Review of Systems - Review of Systems Constitutional: reports: Weakness Eyes: reports: No Symptoms HENT: reports: No Symptoms Neck: reports: No Symptoms Cardiovascular: reports: No Symptoms Gastrointestinal: reports: No Symptoms Genitourinary: reports: No Symptoms Breasts: reports: No Symptoms Reported Musculoskeletal: reports: No Symptoms Integumentary: reports: No Symptoms Neurological: reports: No Symptoms Endocrine: reports: No Symptoms Hematology/Lymphatic: reports: No Symptoms Psychiatric: reports: No Symptoms Vital Signs: Vital Signs Temperature 97.8 F 04/28/20 05:53 Pulse Rate 84 04/28/20 11:42 Respiratory Rate 18 04/28/20 11:42 Blood Pressure 202/124 H 04/28/20 11:42 O2 Sat by Pulse Oximetry (%) 96 04/28/20 05:54 Constitutional: Yes: Well Nourished, No Distress, Calm Eyes: Yes: WNL, Conjunctiva Clear, EOM Intact HENT: Yes: WNL, Atraumatic, Normocephalic Neck: Yes: WNL, Supple, Trachea Midline Respiratory: Yes: WNL, Regular, CTA Bilaterally Gastrointestinal: Yes: WNL, Normal Bowel Sounds Renal/: Yes: WNL Cardiovascular: Yes: WNL, Regular Rate and Rhythm Musculoskeletal: Yes: WNL Extremities: Yes: WNL - Other Data Labs, Other Data: CBC, BMP 04/27/20 22:00 04/27/20 22:00 INR, PTT INR 0.96 (0.83-1.09) 04/27/20 22:00 Troponin, BNP 04/27/20 04/28/20 22:00 10:23 Troponin I < 0.02 < 0.02 Troponin, BNP 04/27/20 04/28/20 22:00 10:23 Troponin I < 0.02 < 0.02 Imaging - Results Chest X-ray: Image Reviewed (no i/e) EKG: Image Reviewed (sr LDEA rep abn) Assessment/Plan 67yo man with a PMH of HTN, HLD, IDDM (previous admission for DKA in 08/30), HepC (treated) who presents from home today following an episode of weakness, lightheadedness, and hypoglycemia. Plan; For Uncontrolled HTN will increase Amlodipine to 10 qd Losartan to 100 qd add HCTZ 25 QD DVT PLX
[2020-04-28] MEDS ORDERED: amLODIPine BESYLATE 5 MG TABLET (FP) PO ONE ×2 (14:45→17:23)
--- NOTE | 2020-04-28 15:38 | HP ---
Admitting History and Physical - Primary Care Physician PCP: Jessica Hernandez - Admission Chief Complaint: lightheaded History of Present Illness: 67yo man with a PMH of HTN, HLD, IDDM (previous admission for DKA in 08/30), HepC (treated) who presents from home today following an episode of weakness, lightheadedness, and hypoglycemia around 7pm yesterday. Per patient, he checked his glucose level around 7pm and it was noted to be low. Thereafter, his called for an ambulance. Patient arrived to this ED and Code Terry was initiated for dysarthria and left-sided nasiolabial flattening. By the time I saw the patient, he was without acute neurologic findings. Stated he: "feels alright." No fevers, chills, chest pain, or shortness of breath. PCP: Dr. 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) Cardiovascular: Yes: HTN, Hyperlipdemia Hepatobiliary: Yes: Hepatitis C Infectious Disease: Yes: HIV Psych: Yes: Addictions Endocrine: Yes: Diabetes Mellitus - Smoking History Smoking history: Unknown if ever smoked Have you smoked in the past 12 months: No Aproximately how many cigarettes per day: 1 - Alcohol/Substance Use Hx Alcohol Use: No - Social History ADL: Independent History of Recent Travel: No Home Medications - Allergies Allergies/Adverse Reactions: Allergies Allergy/AdvReac Type Severity Reaction Status Date / Time No Known Allergies Allergy Verified 04/27/20 21:51 - Home Medications Home Medications: Ambulatory Orders Duloxetine HCl 30 mg PO BID 06/11/18 Insulin Degludec [Tresiba Flextouch U-100] 22 unit SQ DAILY 06/11/18 Insulin Sliding Scale [Novolog Vial Sliding Scale -] 0 units SQ TIDAC 06/11/18 Linaclotide [Linzess] 72 mcg PO DAILY 06/11/18 Methadone [Dolophine -] 40 mg PO DAILY 06/11/18 Mirtazapine 15 mg PO HS 06/11/18 Olmesartan Medoxomil [Benicar -] 20 mg PO DAILY 06/11/18 Olmesartan/Hydrochlorothiazide [Olmesartan-Hctz 20-12.5 mg Tab] 1 each PO DAILY 06/11/18 Rosuvastatin [Crestor -] 5 mg PO HS 06/11/18 Aspirin [ASA -] 81 mg PO DAILY #30 tab.chew 06/14/18 Physical Examination Vital Signs: Vital Signs Temperature 97.8 F 04/28/20 05:53 Pulse Rate 98 H 04/28/20 14:39 Respiratory Rate 18 04/28/20 14:39 Blood Pressure 186/120 H 04/28/20 14:39 O2 Sat by Pulse Oximetry (%) 98 04/28/20 14:39 Constitutional: Yes: No Distress HENT: Yes: Atraumatic Neck: Yes: Supple Cardiovascular: Yes: Regular Rate and Rhythm Respiratory: Yes: CTA Bilaterally Gastrointestinal: Yes: Normal Bowel Sounds Extremities: Yes: WNL Neurological: Yes: Alert, Oriented Labs: CBC, BMP 04/27/20 22:00 04/27/20 22:00 Imaging - Results X-ray: Report Reviewed Cat Scan: Report Reviewed Problem List - Problems (1) HLD (hyperlipidemia) Assessment/Plan: on meds Code(s): E78.5 - HYPERLIPIDEMIA, UNSPECIFIED (2) Altered mental status Assessment/Plan: doing well going for mri Code(s): R41.82 - ALTERED MENTAL STATUS, UNSPECIFIED Qualifiers: Altered mental status type: unspecified Qualified Code(s): R41.82 - Altered mental status, unspecified (3) HTN (hypertension) Assessment/Plan: bp elevated orthostatic will add norvasc for now until cardio decides the meds Code(s): I10 - ESSENTIAL (PRIMARY) HYPERTENSION (4) Hypoglycemia Code(s): E16.2 - HYPOGLYCEMIA, UNSPECIFIED (5) Hepatitis C carrier Code(s): Z22.52 - (6) Insulin dependent diabetes mellitus Assessment/Plan: on bgms Code(s): E11.9 - TYPE 2 DIABETES MELLITUS WITHOUT COMPLICATIONS; Z79.4 - SKILLED NURSING (CURRENT) USE OF INSULIN Assessment/Plan Laboratory Tests 04/27/20 04/27/20 04/27/20 22:00 22:00 22:00 WBC 5.6 RBC 4.58 Hgb 13.2 Hct 40.2 MCV 87.8 MCH 28.8 MCHC 32.8 RDW 16.6 H Plt Count 203 MPV 8.7 Absolute Neuts (auto) 3.2 Neutrophils % 56.9 D Lymphocytes % 32.4 D Monocytes % 8.0 Eosinophils % 1.5 Basophils % 1.2 Nucleated RBC % 0 PT with INR 11.30 INR 0.96 PTT (Actin FS) 32.9 Sodium 136 Potassium 4.7 Chloride 102 Carbon Dioxide 31 Anion Gap 3 L BUN 10.4 Creatinine 1.1 Est GFR (CKD-EPI)AfAm 78.41 Est GFR (CKD-EPI)NonAf 67.66 POC Glucometer Random Glucose 147 H Calcium 9.3 Total Bilirubin 0.3 AST 13 L ALT 16 Alkaline Phosphatase 81 Creatine Kinase 71 Troponin I < 0.02 Total Protein 9.3 H Albumin 4.8 Urine Color Urine Appearance Urine pH Ur Specific Switzer Urine Protein Urine Glucose (UA) Urine Ketones Urine Blood Urine Nitrite Urine Bilirubin Urine Urobilinogen Ur Leukocyte Esterase Blood Type Antibody Screen 04/27/20 04/27/20 04/28/20 22:00 22:15 00:00 WBC RBC Hgb Hct MCV MCH MCHC RDW Plt Count MPV Absolute Neuts (auto) Neutrophils % Lymphocytes % Monocytes % Eosinophils % Basophils % Nucleated RBC % PT with INR INR PTT (Actin FS) Sodium Potassium Chloride Carbon Dioxide Anion Gap BUN Creatinine Est GFR (CKD-EPI)AfAm Est GFR (CKD-EPI)NonAf POC Glucometer 153 Random Glucose Calcium Total Bilirubin AST ALT Alkaline Phosphatase Creatine Kinase Troponin I Total Protein Albumin Urine Color Yellow Urine Appearance Clear Urine pH 5.0 Ur Specific Switzer 1.038 H Urine Protein Negative Urine Glucose (UA) 3+ H Urine Ketones Negative Urine Blood Negative Urine Nitrite Negative Urine Bilirubin Negative Urine Urobilinogen 0.2 Ur Leukocyte Esterase Negative Blood Type A POSITIVE Antibody Screen Negative 04/28/20 04/28/20 04/28/20 08:58 10:23 11:06 WBC RBC Hgb Hct MCV MCH MCHC RDW Plt Count MPV Absolute Neuts (auto) Neutrophils % Lymphocytes % Monocytes % Eosinophils % Basophils % Nucleated RBC % PT with INR INR PTT (Actin FS) Sodium Potassium Chloride Carbon Dioxide Anion Gap BUN Creatinine Est GFR (CKD-EPI)AfAm Est GFR (CKD-EPI)NonAf POC Glucometer 80 68 Random Glucose Calcium Total Bilirubin AST ALT Alkaline Phosphatase Creatine Kinase 70 Troponin I < 0.02 Total Protein Albumin Urine Color Urine Appearance Urine pH Ur Specific Switzer Urine Protein Urine Glucose (UA) Urine Ketones Urine Blood Urine Nitrite Urine Bilirubin Urine Urobilinogen Ur Leukocyte Esterase Blood Type Antibody Screen Active Medications Generic Name Dose Route Start Last Admin Trade Name Freq PRN Reason Stop Dose Admin Aspirin 81 mg 04/28/20 10:00 Asa - PO DAILY [facility] Duloxetine HCl 30 mg 04/28/20 10:00 Cymbalta - PO BID [facility] Heparin Sodium (Porcine) 5,000 unit 04/28/20 10:00 Heparin - SQ BID [facility] Sodium Chloride 1,000 mls @ 42 mls/hr 04/27/20 22:00 04/27/20 22:30 Normal Saline - IV 42 mls/hr ASDIR [facility] Administration Insulin Aspart 1 vial 04/28/20 11:00 Novolog Vial Sliding Scale - SQ ACHS [facility] Protocol Losartan Potassium 50 mg 04/28/20 10:00 Cozaar - PO DAILY [facility] Methadone HCl 40 mg/ Methadone 60 mg 04/29/20 06:00 HCl 20 mg PO DAILY@0600 [facility] Mirtazapine 15 mg 04/28/20 22:00 Remeron - PO HS [facility] Rosuvastatin Calcium 5 mg 04/28/20 22:00 Crestor - PO HS [facility] MEDICINE COVERAGE FOR DR WHEATLEY TODAY
[2020-04-28] MEDS: HEPARIN NA (PORCINE) 5,000 UNITS/ML 1ML VIAL SQ SCH ×2 (17:11→21:56)
[2020-04-28] MEDS: INSULIN SLIDING SCALE (NOVOLOG) 1 VIAL SQ SCH ×3 (17:12→21:57)
[2020-04-28] MEDS ORDERED: amLODIPine BESYLATE 10 MG TABLET (FP) PO SCH (17:15)
[2020-04-28] MEDS ORDERED: LOSARTAN POTASSIUM 50 MG TABLET PO ONE (17:48)
--- NOTE | 2020-04-28 17:50 | CON.NEURO ---
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) Cardio/Vascular: Yes: HTN, Hyperlipdemia Hepatobiliary: Yes: Hepatitis C Infectious Disease: Yes: HIV Psych: Yes: Addictions Endocrine: Yes: Diabetes Mellitus - Alcohol/Substance Use Hx Alcohol Use: No - Smoking History Smoking history: Unknown if ever smoked Have you smoked in the past 12 months: No Aproximately how many cigarettes per day: 1 - Social History Usual Living Arrangement: With Significant Other ADL: Independent History of Recent Travel: No Home Medications - Allergies Allergies/Adverse Reactions: Allergies Allergy/AdvReac Type Severity Reaction Status Date / Time No Known Allergies Allergy Verified 04/27/20 21:51 - Home Medications Home Medications: Ambulatory Orders Duloxetine HCl 30 mg PO BID 06/11/18 Insulin Degludec [Tresiba Flextouch U-100] 22 unit SQ DAILY 06/11/18 Insulin Sliding Scale [Novolog Vial Sliding Scale -] 0 units SQ TIDAC 06/11/18 Linaclotide [Linzess] 72 mcg PO DAILY 06/11/18 Methadone [Dolophine -] 40 mg PO DAILY 06/11/18 Mirtazapine 15 mg PO HS 06/11/18 Olmesartan Medoxomil [Benicar -] 20 mg PO DAILY 06/11/18 Olmesartan/Hydrochlorothiazide [Olmesartan-Hctz 20-12.5 mg Tab] 1 each PO DAILY 06/11/18 Rosuvastatin [Crestor -] 5 mg PO HS 06/11/18 Aspirin [ASA -] 81 mg PO DAILY #30 tab.chew 06/14/18 Family Medical History Family History: Unremarkable Review of Systems - Review of Systems Neurological: reports: Confusion, Dizziness, Headache, Parasthesia, Pre-Existing Deficit, Seizure Physical Exam-Neuro Vital Signs: Vital Signs Temperature 98.8 F 04/28/20 17:00 Pulse Rate 92 H 09/16/20 17:12 Respiratory Rate 18 04/28/20 17:00 Blood Pressure 196/116 H 04/28/20 17:12 O2 Sat by Pulse Oximetry (%) 98 04/28/20 17:00 Constitutional: Yes: Well Nourished Neck: Yes: WNL Cardiovascular: Yes: WNL Respiratory: Yes: WNL Labs: CBC, BMP 04/27/20 22:00 04/27/20 22:00 INR, PTT INR 0.96 (0.83-1.09) 04/27/20 22:00 - Neuro Exam Level Of Consciousness: Yes: Oriented to Person, Oriented to Place, Oriented to Time Eyes: Yes: PERRLA Speech: WNL Dominant Hand: Right Cranial Nerves II-XII Intact: Yes Gag: Present DTR's: 1+ Left Bicep, 1+ Right Bicep, 1+ Left Brachioradialis, 1+ Right Brachioradialis Response to light touch: Normal Response to pain prick: Normal Response to temperature: Normal Response to vibration: Normal Motor Strength: 3/5: Left Arm, Right Arm, Left Leg, Right Leg Gait: Deferred Imaging - Results Cat Scan: Image Reviewed MRI: Image Reviewed Problem List - Problems (1) Altered mental status Code(s): R41.82 - ALTERED MENTAL STATUS, UNSPECIFIED Qualifiers: Altered mental status type: unspecified Qualified Code(s): R41.82 - Altered mental status, unspecified (2) Polyneuropathy Code(s): G62.9 - POLYNEUROPATHY, UNSPECIFIED (3) Syncope Code(s): R55 - SYNCOPE AND COLLAPSE Assessment/Plan 1. C duplex 2. C peptide 3. Tight BSL control 4. ASA 162 mg po qd 5. Check orthostatsi q daily MATTI GILLESPIE MD NEUROLOGY [id number]
[2020-04-28] MEDS ORDERED: METHADONE HCL 40 MG DISPERSABLE TABLET ONE (17:54)
[2020-04-28] MEDS ORDERED: METHADONE HCL 10 MG TABLET ONE (17:54)
[2020-04-28] MEDS: METHADONE 40 MG, METHADONE 20 MG PO SCH (17:57)
[2020-04-28] MEDS: HYDROCHLOROTHIAZIDE 25 MG TABLET (FP) PO SCH (17:57)
[2020-04-28] MEDS: MIRTAZAPINE 15 MG TABLET (FP) PO SCH (21:56)
[2020-04-28] MEDS: ROSUVASTATIN CA 5 MG TABLET (FP) PO SCH (21:56)
[2020-04-28] MEDS: SODIUM CHLORIDE 1,000 ML IV SCH (21:57)
[2020-04-29] MEDS ORDERED: METHADONE HCL 10 MG TABLET ONE ×2 (05:39→05:57)
[2020-04-29] MEDS ORDERED: METHADONE HCL 40 MG DISPERSABLE TABLET ONE ×2 (05:39→05:56)
[2020-04-29] MEDS: METHADONE 40 MG, METHADONE 20 MG PO SCH (05:49)
[2020-04-29] MEDS: INSULIN SLIDING SCALE (NOVOLOG) 1 VIAL SQ SCH ×3 (06:56→16:51)
[2020-04-29 08:04] LABS: BASO % 0.8 % (0-2.0); EOS % 2.4 % (0-4.5); HEMATOCRIT 38.6 % (35.4-49); HEMOGLOBIN 12.5 GM/dL (11.7-16.9); LYMPH % 42.1 % (8-40); MCH 28.3 pg (25.7-33.7); MCHC 32.5 g/dl (32.0-35.9); MEAN PLT VOLUME 9.4 fl (7.5-11.1); MONO % 10.4 % (3.8-10.2); NEUT % 44.3 % (42.8-82.8); PLATELET COUNT 212 K/MM3 (134-434); RBC 4.43 M/mm3 (4.00-5.60); RDW 16.4 % (11.9-15.9); WHITE BLOOD COUNT 5.6 K/mm3 (4.0-10.0)
[2020-04-29 08:32] LABS: CHLORIDE 98 mmol/L (98-107); POTASSIUM 4.2 mmol/L (3.5-5.1); SODIUM 135 mmol/L (136-145)
[2020-04-29 09:09] LABS: ALBUMIN 3.6 g/dl (3.4-5.0); ALK PHOS 71 U/L (45-117); ANION GAP 7 MMOL/L (8-16); BILIRUBIN,TOTAL 0.5 mg/dL (0.2-1); BLOOD UREA NITROGEN 11.4 mg/dL (7-18); CALCIUM 9.2 mg/dL (8.5-10.1); CO2 31 mmol/L (21-32); CREATININE 0.9 mg/dL (0.55-1.3); GLUCOSE,RANDOM 136 mg/dL (74-106); SGOT/AST 13 U/L (15-37); SGPT/ALT 13 U/L (13-61); TOT PROT 7.6 g/dl (6.4-8.2)
[2020-04-29] MEDS ORDERED: PT OWN MED DRAWER 7, Y5N ONE (10:20)
--- NOTE | 2020-04-29 10:52 | PN ---
Progress Note, Physician Chief Complaint: Pt A&Ox3; asymptomatic History of Present Illness: Mr. Ramirez is a 67yo black man with a PMH of HTN, HLD, IDDM (previous admission for DKA in 08/30), Hepatitis C (treated), chronic lower back pain, who presented from home following an episode of weakness, lightheadedness, and hypoglycemia around 7pm today. Per patient, he checked his glucose level around 7pm and it was noted to be low. Thereafter, his called for an ambulance. Patient arrived to this ED and Code Terry was initiated for dysarthria and left-sided nasiolabial flattening; brain MRI pending. PMD: Garfield Ko Chalk Cutter: Janis Denny - Current Medication List Current Medications: Active Medications Amlodipine Besylate (Norvasc -) 10 mg PO DAILY [facility] Aspirin (Asa -) 81 mg PO DAILY [facility] Last Admin: 04/28/20 10:30 Dose: 81 mg Documented by: Duloxetine HCl (Cymbalta -) 30 mg PO BID [facility] Last Admin: 04/28/20 21:56 Dose: 30 mg Documented by: Heparin Sodium (Porcine) (Heparin -) 5,000 unit SQ BID [facility] Last Admin: 04/28/20 21:56 Dose: 5,000 unit Documented by: Hydrochlorothiazide (Hctz -) 25 mg PO DAILY [facility] Last Admin: 04/28/20 17:57 Dose: 25 mg Documented by: Sodium Chloride (Normal Saline -) 1,000 mls @ 42 mls/hr IV ASDIR [facility] Last Admin: 04/28/20 21:57 Dose: Not Given Documented by: Insulin Aspart (Novolog Vial Sliding Scale -) 1 vial SQ ACHS [facility]; Protocol Last Admin: 04/29/20 06:56 Dose: 2 units Documented by: Losartan Potassium (Cozaar -) 100 mg PO DAILY [facility] Methadone HCl 40 mg/ Methadone (HCl 20 mg) 60 mg PO DAILY@0600 [facility] Last Admin: 04/29/20 05:49 Dose: 60 mg Documented by: Mirtazapine (Remeron -) 15 mg PO [facility] Last Admin: 04/28/20 21:56 Dose: 15 mg Documented by: Rosuvastatin Calcium (Crestor -) 5 mg PO [facility] Last Admin: 04/28/20 21:56 Dose: 5 mg Documented by: - Objective Vital Signs: Vital Signs Temperature 97.7 F 04/29/20 00:00 Pulse Rate 84 04/29/20 00:00 Respiratory Rate 20 04/29/20 00:00 Blood Pressure 143/97 04/29/20 06:00 O2 Sat by Pulse Oximetry (%) 99 04/29/20 06:00 Constitutional: Yes: No Distress Eyes: Yes: WNL HENT: Yes: WNL Neck: Yes: WNL Cardiovascular: Yes: S1, S2, S4 Respiratory: Yes: WNL Gastrointestinal: Yes: Soft ...Rectal Exam: Yes: Deferred Genitourinary: No: Anuria Musculoskeletal: Yes: Joint Stiffness Extremities: Yes: WNL Edema: No Peripheral Pulses WNL: Yes Integumentary: Yes: WNL Neurological: Yes: WNL ...Motor Strength: WNL Psychiatric: Yes: WNL Labs: CBC, BMP 04/29/20 06:05 04/29/20 06:05 INR, PTT INR 0.96 (0.83-1.09) 04/27/20 22:00 Abnormal Lab Results 04/29/20 06:05 Sodium 135 L Anion Gap 7 L Random Glucose 136 H AST 13 L HDL Cholesterol 69 H - ....Imaging Chest X-ray: Image Reviewed EKG: Image Reviewed Assessment/Plan Mr. Ramirez is a 67yo man with a PMH of HTN, HLD, IDDM (previous admission for DKA in 08/30), HepC (treated) who presents from home today following an episode of weakness, lightheadedness, and hypoglycemia. ECHO 09/2019 in office: normal LVEF. Stress MIBI 2016 at [facility]: periinfarct mild ischemia. Derek: For Uncontrolled HTN; pt on losartan 100 mg; amlodipine 10 mg; HCTZ 25 mg daily. HGBA1c 7.0 TNI < 0.02 x 3. F/u TSH and lipids (on rosuvastatin). F/u cardiac workup done as outpatient. DVT PLX Addendum: Pt last seen in Dr. Denny's office (director state pharmacy) in 2018: Based on +stress MIBI, he was sent to [facility] for coronary angiogram, but then refused the procedure (he was also anemic at the time). At that time, he was on metformin, methadone, rosuvastatin, Ranexa, Novolog, ASA, and Benicar. He plans to f/u with Dr. Denny.
[2020-04-29] MEDS: LOSARTAN POTASSIUM 50 MG TABLET PO SCH (11:05)
[2020-04-29] MEDS: ASPIRIN 81 MG CHEWABLE TABLETS PO SCH (11:05)
[2020-04-29] MEDS: HYDROCHLOROTHIAZIDE 25 MG TABLET (FP) PO SCH (11:05)
[2020-04-29] MEDS: DULoxetine HCL 30 MG CAPSULE.DR PO SCH ×2 (11:05→21:14)
[2020-04-29] MEDS: amLODIPine BESYLATE 10 MG TABLET (FP) PO SCH (11:05)
[2020-04-29] MEDS: HEPARIN NA (PORCINE) 5,000 UNITS/ML 1ML VIAL SQ SCH ×2 (11:05→21:14)
--- NOTE | 2020-04-29 14:18 | ECHO ---
Name: GENTLE, NEIL Exam:Adult Echocardiogram Study Date: 04/29/2020 10:28 AM Age: 69 yrs Reason For Study: CVA Height: 72 in Weight: 160 lb BSA: 1.9 m2 MMode/2D Measurements & Calculations IVSd: 1.2 cm Ao root diam: 3.4 cm LVIDd: 3.6 cm LA dimension: 2.8 cm LVIDs: 2.6 cm ACS: 2.2 cm LVPWd: 0.99 cm EDV(Teich): 53.7 ml LVOT diam: 2.5 cm ESV(Teich): 24.0 ml LVLd ap4: 8.7 cm SV(MOD-sp4): 63.0 ml EDV(MOD-sp4): 129.0 ml LVLs ap4: 7.6 cm ESV(MOD-sp4): 66.0 ml LAV (MOD-bp): 27.0 ml TAPSE: 1.6 cm RV S Ronnie: 14.9 cm/sec Doppler Measurements & Calculations MV E max ronnie: 50.8 cm/sec Ao V2 max: 89.6 cm/sec MV A max ronnie: 92.8 cm/sec Ao max P.2 mmHg MV E/A: 0.55 Ao V2 mean: 60.7 cm/sec MV dec time: 0.31 sec Ao mean P.7 mmHg Ao V2 VTI: 15.2 cm YOBANI(I,D): 3.6 cm2 YOBANI(V,D): 3.8 cm2 LV V1 max P.8 mmHg SV(LVOT): 54.1 ml LV V1 mean P.95 mmHg LV V1 max: 67.6 cm/sec LV V1 mean: 45.6 cm/sec LV V1 VTI: 10.6 cm PA V2 max: 71.9 cm/sec Med Peak E' Ronnie: 5.5 cm/sec PA max P.1 mmHg Med E/e': 9.3 Lat Peak E' Ronnie: 6.7 cm/sec Lat E/e': 7.6 RAP systole: 10.0 mmHg Tech Comments Suboptimal PLAX/SAX views due to orientation of patient's heart. Patient very thin. Procedure A complete two-dimensional transthoracic echocardiogram was performed (2D, M-mode, Doppler and color flow Doppler). Left Ventricle The left ventricular size, thickness and function are normal. Ejection Fraction = 55-60%. No regional wall motion abnormalities noted. Right Ventricle The right ventricle is normal in size and function. Atria Normal left and right atrial size and function. Mitral Valve There is no mitral regurgitation noted. Tricuspid Valve No tricuspid regurgitation. There was insufficient TR detected to calculate RV systolic pressure. Aortic Valve No hemodynamically significant valvular aortic stenosis. Trace aortic regurgitation. Pulmonic Valve There is no pulmonic valvular regurgitation. Great Vessels The aortic root is normal size. Pericardium/Pleura There is no pericardial effusion. Interpretation Summary The left ventricular size, thickness and function are normal The right ventricle is normal in size and function. Trace aortic regurgitation. MD Lyndon Preston 04/29/2020 02:17 PM
[2020-04-29 15:20] LABS: CHOLESTEROL 125 mg/dL (50-200); HDL CHOLESTEROL 69 mg/dL (40-60); LDL CHOLESTEROL (ONLY SJRH) 50 mg/dL (5-100); TRIGLYCERIDES 69 mg/dL (0-150)
[2020-04-29] MEDS: NICOTINE 14 MG/24 HOURS TOPICAL PATCH TD SCH (15:55)
[2020-04-29] MEDS: ROSUVASTATIN CA 5 MG TABLET (FP) PO SCH (21:16)
[2020-04-29] MEDS: MIRTAZAPINE 15 MG TABLET (FP) PO SCH (21:18)
--- NOTE | 2020-04-29 21:44 | PN ---
Progress Note, Physician History of Present Illness: No new complaint - Current Medication List Current Medications: Active Medications Amlodipine Besylate (Norvasc -) 10 mg PO DAILY [facility] Last Admin: 04/29/20 11:05 Dose: 10 mg Documented by: Aspirin (Asa -) 81 mg PO DAILY [facility] Last Admin: 04/29/20 11:05 Dose: 81 mg Documented by: Duloxetine HCl (Cymbalta -) 30 mg PO BID [facility] Last Admin: 04/29/20 21:14 Dose: 30 mg Documented by: Heparin Sodium (Porcine) (Heparin -) 5,000 unit SQ BID [facility] Last Admin: 04/29/20 21:14 Dose: 5,000 unit Documented by: Hydrochlorothiazide (Hctz -) 25 mg PO DAILY [facility] Last Admin: 04/29/20 11:05 Dose: 25 mg Documented by: Insulin Aspart (Novolog Vial Sliding Scale -) 1 vial SQ [facility]; Protocol Last Admin: 04/29/20 16:51 Dose: 10 units Documented by: Losartan Potassium (Cozaar -) 100 mg PO DAILY [facility] Last Admin: 04/29/20 11:05 Dose: 100 mg Documented by: Methadone HCl 40 mg/ Methadone (HCl 20 mg) 60 mg PO DAILY@0600 [facility] Last Admin: 04/29/20 05:49 Dose: 60 mg Documented by: Mirtazapine (Remeron -) 15 mg PO [facility] Last Admin: 04/29/20 21:18 Dose: 15 mg Documented by: Nicotine (Nicoderm Patch -) 14 mg TD DAILY [facility] Last Admin: 04/29/20 15:55 Dose: 14 mg Documented by: Rosuvastatin Calcium (Crestor -) 5 mg PO [facility] Last Admin: 04/29/20 21:16 Dose: 5 mg Documented by: - Objective Vital Signs: Vital Signs Temperature 97.6 F 04/29/20 18:00 Pulse Rate 109 H 04/29/20 18:00 Respiratory Rate 20 04/29/20 18:00 Blood Pressure 152/110 H 04/29/20 18:00 O2 Sat by Pulse Oximetry (%) 97 04/29/20 18:00 Neck: Yes: WNL, Supple Cardiovascular: Yes: WNL, Regular Rate and Rhythm Respiratory: Yes: WNL, Regular, CTA Bilaterally Gastrointestinal: Yes: WNL, Normal Bowel Sounds, Soft Labs: CBC, BMP 04/29/20 06:05 04/29/20 06:05 INR, PTT INR 0.96 (0.83-1.09) 04/27/20 22:00 Problem List - Problems (1) Altered mental status Assessment/Plan: ?Due to hypoglycemia R/O CVA MRI shows multiple foci small vessel infarction Neuro/Cardio consults noted Echo normal Code(s): R41.82 - ALTERED MENTAL STATUS, UNSPECIFIED Qualifiers: Altered mental status type: unspecified Qualified Code(s): R41.82 - Altered mental status, unspecified (2) HTN (hypertension) Assessment/Plan: BP now normal ?Orthostasis BP accelerated on admission Cont norvasc/losartan/Hctz/asa Code(s): I10 - ESSENTIAL (PRIMARY) HYPERTENSION (3) HLD (hyperlipidemia) Assessment/Plan: Cont crestor Code(s): E78.5 - HYPERLIPIDEMIA, UNSPECIFIED (4) Neuropathy Code(s): G62.9 - POLYNEUROPATHY, UNSPECIFIED (5) Diabetes Assessment/Plan: Cont sliding scale w/ insulin Code(s): E11.9 - TYPE 2 DIABETES MELLITUS WITHOUT COMPLICATIONS (6) methadone maintenance Assessment/Plan: Cont methadone
[2020-04-30] MEDS: INSULIN SLIDING SCALE (NOVOLOG) 1 VIAL SQ SCH ×3 (01:07→12:12)
[2020-04-30] MEDS ORDERED: METHADONE HCL 10 MG TABLET ONE (05:49)
[2020-04-30] MEDS ORDERED: METHADONE HCL 40 MG DISPERSABLE TABLET ONE (05:49)
[2020-04-30] MEDS: METHADONE 40 MG, METHADONE 20 MG PO SCH (05:57)
--- NOTE | 2020-04-30 08:51 | PN ---
Progress Note, Physician History of Present Illness: 67yo man with a PMH of HTN, HLD, IDDM (previous admission for DKA in 08/30), HepC (treated) who presents from home today following an episode of weakness, lightheadedness, and hypoglycemia around 7pm today. Per patient, he checked his glucose level around 7pm and it was noted to be low. Thereafter, his called for an ambulance. Patient arrived to this ED and Code Terry was initiated for dysarthria and left-sided nasiolabial flattening. - Current Medication List Current Medications: Active Medications Amlodipine Besylate (Norvasc -) 10 mg PO DAILY [facility] Last Admin: 04/29/20 11:05 Dose: 10 mg Documented by: Aspirin (Asa -) 81 mg PO DAILY [facility] Last Admin: 04/29/20 11:05 Dose: 81 mg Documented by: Duloxetine HCl (Cymbalta -) 30 mg PO BID [facility] Last Admin: 04/29/20 21:14 Dose: 30 mg Documented by: Heparin Sodium (Porcine) (Heparin -) 5,000 unit SQ BID [facility] Last Admin: 04/29/20 21:14 Dose: 5,000 unit Documented by: Hydrochlorothiazide (Hctz -) 25 mg PO DAILY [facility] Last Admin: 04/29/20 11:05 Dose: 25 mg Documented by: Insulin Aspart (Novolog Vial Sliding Scale -) 1 vial SQ [facility]; Protocol Last Admin: 04/30/20 07:04 Dose: Not Given Documented by: Losartan Potassium (Cozaar -) 100 mg PO DAILY [facility] Last Admin: 04/29/20 11:05 Dose: 100 mg Documented by: Methadone HCl 40 mg/ Methadone (HCl 20 mg) 60 mg PO DAILY@0600 [facility] Last Admin: 04/30/20 05:57 Dose: 60 mg Documented by: Mirtazapine (Remeron -) 15 mg PO [facility] Last Admin: 04/29/20 21:18 Dose: 15 mg Documented by: Nicotine (Nicoderm Patch -) 14 mg TD DAILY [facility] Last Admin: 04/29/20 15:55 Dose: 14 mg Documented by: Rosuvastatin Calcium (Crestor -) 5 mg PO [facility] Last Admin: 04/29/20 21:16 Dose: 5 mg Documented by: - Objective Vital Signs: Vital Signs Temperature 97.5 F L 04/30/20 05:00 Pulse Rate 82 04/30/20 05:00 Respiratory Rate 20 04/30/20 05:00 Blood Pressure 142/96 04/30/20 05:00 O2 Sat by Pulse Oximetry (%) 96 04/29/20 22:00 Eyes: Yes: WNL, Conjunctiva Clear, EOM Intact HENT: Yes: WNL, Atraumatic, Normocephalic Neck: Yes: WNL, Supple, Trachea Midline Cardiovascular: Yes: WNL, Regular Rate and Rhythm Respiratory: Yes: WNL, Regular, CTA Bilaterally Gastrointestinal: Yes: WNL, Normal Bowel Sounds Genitourinary: Yes: WNL Musculoskeletal: Yes: WNL Extremities: Yes: WNL Edema: No Integumentary: Yes: WNL Neurological: Yes: WNL, Alert, Oriented ...Motor Strength: WNL Psychiatric: Yes: WNL Labs: CBC, BMP 04/29/20 06:05 04/29/20 06:05 INR, PTT INR 0.96 (0.83-1.09) 04/27/20 22:00 Assessment/Plan Mr. Ramirez is a 67yo man with a PMH of HTN, HLD, IDDM (previous admission for DKA in 08/30), HepC (treated) who presents from home today following an episode o f weakness, lightheadedness, and hypoglycemia. ECHO 09/2019 in office: normal LVEF. Stress MIBI 2016 at [facility]: periinfarct mild ischemia. Derek: For Uncontrolled HTN; pt on losartan 100 mg; amlodipine 10 mg; HCTZ 25 mg daily. HGBA1c 7.0 TNI < 0.02 x 3. F/u TSH and lipids (on rosuvastatin). F/u cardiac workup done as outpatient. DVT PLX Addendum: Pt last seen in Dr. 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 At that time, he was on metformin, methadone, rosuvastatin, Ranexa, Novolog, ASA, and Benicar.
[2020-04-30] MEDS: NICOTINE 14 MG/24 HOURS TOPICAL PATCH TD SCH (09:34)
[2020-04-30] MEDS: HYDROCHLOROTHIAZIDE 25 MG TABLET (FP) PO SCH (09:34)
[2020-04-30] MEDS: amLODIPine BESYLATE 10 MG TABLET (FP) PO SCH (09:34)
[2020-04-30] MEDS: ASPIRIN 81 MG CHEWABLE TABLETS PO SCH (09:34)
[2020-04-30] MEDS: DULoxetine HCL 30 MG CAPSULE.DR PO SCH (09:34)
[2020-04-30] MEDS: LOSARTAN POTASSIUM 50 MG TABLET PO SCH (09:35)
[2020-04-30] MEDS: HEPARIN NA (PORCINE) 5,000 UNITS/ML 1ML VIAL SQ SCH (09:35)
--- NOTE | 2020-04-30 10:44 | PN ---
Progress Note, Physician History of Present Illness: events noted Chart reviewed Feels much better No report of any episode of orthostasis or any complaint. - Current Medication List Current Medications: Active Medications Amlodipine Besylate (Norvasc -) 10 mg PO DAILY [facility] Last Admin: 04/30/20 09:34 Dose: 10 mg Documented by: Aspirin (Asa -) 81 mg PO DAILY [facility] Last Admin: 04/30/20 09:34 Dose: 81 mg Documented by: Duloxetine HCl (Cymbalta -) 30 mg PO BID [facility] Last Admin: 04/30/20 09:34 Dose: 30 mg Documented by: Heparin Sodium (Porcine) (Heparin -) 5,000 unit SQ BID [facility] Last Admin: 04/30/20 09:35 Dose: 5,000 unit Documented by: Hydrochlorothiazide (Hctz -) 25 mg PO DAILY [facility] Last Admin: 04/30/20 09:34 Dose: 25 mg Documented by: Insulin Aspart (Novolog Vial Sliding Scale -) 1 vial SQ [facility]; Protocol Last Admin: 04/30/20 07:04 Dose: Not Given Documented by: Losartan Potassium (Cozaar -) 100 mg PO DAILY [facility] Last Admin: 04/30/20 09:35 Dose: 100 mg Documented by: Methadone HCl 40 mg/ Methadone (HCl 20 mg) 60 mg PO DAILY@0600 [facility] Last Admin: 04/30/20 05:57 Dose: 60 mg Documented by: Mirtazapine (Remeron -) 15 mg PO [facility] Last Admin: 04/29/20 21:18 Dose: 15 mg Documented by: Nicotine (Nicoderm Patch -) 14 mg TD DAILY [facility] Last Admin: 04/30/20 09:34 Dose: 14 mg Documented by: Rosuvastatin Calcium (Crestor -) 5 mg PO [facility] Last Admin: 04/29/20 21:16 Dose: 5 mg Documented by: - Objective Vital Signs: Vital Signs Temperature 97.5 F L 04/30/20 05:00 Pulse Rate 82 04/30/20 05:00 Respiratory Rate 04/30/20 05:00 Blood Pressure 142/96 04/30/20 05:00 O2 Sat by Pulse Oximetry (%) 96 04/29/20 22:00 Constitutional: Yes: Well Nourished Eyes: Yes: WNL HENT: Yes: WNL Neurological: Yes: Alert, Oriented, Babinski positive, Cran Nerves II-XII Intact Labs: CBC, BMP 04/29/20 06:05 04/29/20 06:05 INR, PTT INR 0.96 (0.83-1.09) 04/27/20 22:00 Problem List - Problems (1) Altered mental status Code(s): R41.82 - ALTERED MENTAL STATUS, UNSPECIFIED Qualifiers: Altered mental status type: unspecified Qualified Code(s): R41.82 - Altered mental status, unspecified (2) Polyneuropathy Code(s): G62.9 - POLYNEUROPATHY, UNSPECIFIED (3) Syncope Code(s): R55 - SYNCOPE AND COLLAPSE Assessment/Plan tight blood sugar control. Autonomic testing as an outpatient. Compression stockings. Get up slowly. Increase by mouth fluid intake.
[2020-04-30 11:43] VITALS: BP 150/90; PULSE 88; TEMP 98
--- NOTE | 2020-05-06 22:05 | DS ---
Physical Examination Vital Signs: Vital Signs Temperature 98 F 04/30/20 09:00 Pulse Rate 88 04/30/20 09:00 Respiratory Rate 20 04/30/20 09:00 Blood Pressure 150/90 04/30/20 09:00 O2 Sat by Pulse Oximetry (%) 96 04/29/20 22:00 Labs: CBC, BMP 04/29/20 06:05 04/29/20 06:05 Discharge Summary Problems reviewed: Yes Reason For Visit: ALTERED MENTAL STATUS Altered mental status HTN HLD Diabetes Methadone maintance Hospital Course: Pt is a 67yo man with a PMH of HTN, HLD, IDDM (previous admission for DKA in 08/30), HepC (treated) who presents from home today following an episode of weakness, lightheadedness, and hypoglycemic. Patient arrived to ED and Code Terry was initiated for dysarthria and left-sided nasiolabial flattening. CT scan head was normal and MRI brain showed multiple foci small vessel infarction. Pt was followed by neuro/cardio. Pt's BP was initially elevated and it was than normalized by antihypertensives. Condition: Good - Instructions Diet, Activity, Other Instructions: 2 gram sodium diet and diabetic diet See Dr garfield Ko in 1 week Referrals: Garfield Ko MD [Primary Care Provider] - Disposition: HOME - Home Medications Comprehensive Discharge Medication List: Ambulatory Orders Duloxetine HCl 30 mg PO BID 06/11/18 Insulin Degludec [Tresiba Flextouch U-100] 22 unit SQ DAILY 06/11/18 Insulin Sliding Scale [Novolog Vial Sliding Scale -] 0 units SQ [facility] 06/11/18 Linaclotide [Linzess] 72 mcg PO DAILY 06/11/18 Methadone [Dolophine -] 40 mg PO DAILY 06/11/18 Mirtazapine 15 mg PO HS 06/11/18 Rosuvastatin [Crestor -] 5 mg PO HS 06/11/18 Aspirin [ASA -] 81 mg PO DAILY #30 tab.chew 06/14/18 Amlodipine Besylate [Norvasc -] 10 mg PO DAILY #30 tablet 04/30/20 Hydrochlorothiazide [Hctz -] 25 mg PO DAILY #30 tablet 04/30/20 Losartan Potassium [Cozaar -] 100 mg PO DAILY #30 tablet 04/30/20 Methadone [Dolophine -] 60 mg PO DAILY@0600 tablet 04/30/20 Methadone [Dolophine -] 60 mg PO DAILY@0600 tablet 04/30/20 Nicotine Patch [Nicoderm Patch -] 14 mg TD DAILY #30 patch 04/30/20
== END 2020-04-30 12:14 | disposition home or self-care (01) | DRG 65 ==
LOC: JER 21:25 → JERBED 04-28 01:04 → J4W 04-28 15:35
PROVIDERS: ADMIT Internal Medicine; ATTEND Internal Medicine
DX: I63.9 Cerebral infarction, unspecified (principal); F11.20 Opioid dependence, uncomplicated; E11.649 Type 2 diabetes mellitus with hypoglycemia without coma; E11.42 Type 2 diabetes mellitus with diabetic polyneuropathy; R41.82 Altered mental status, unspecified; I10 Essential (primary) hypertension; E78.5 Hyperlipidemia, unspecified; I25.10 Atherosclerotic heart disease of native coronary artery without angina pectoris; M54.5 Low back pain; R55 Syncope and collapse; R47.1 Dysarthria and anarthria
CPT/HCPCS: 36415; 70450-TC; 70551-TC; 71045-TC-FY; 80053; 80061; 81003; 82550; 82962; 83036; 83721; 84443; 84484; 85025; 85610; 85730; 86850; 86900; 86901; 93005; 93010; 93306-TC; 93880-TC; 99285-25; J1644; U0003

== ENCOUNTER 2020-06-30 05:29 | Inpatient (IN) | payer OTHER ==
[2020-06-30] MEDS ORDERED: amLODIPine BESYLATE 10 MG TABLET (FP) PO ONE (06:40)
[2020-06-30 06:55] LABS: BASO % 0.2 % (0-2.0); EOS % 0.1 % (0-4.5); HEMATOCRIT 36.7 % (35.4-49); HEMOGLOBIN 11.6 GM/dL (11.7-16.9); LYMPH % 6.9 % (8-40); MCH 26.8 pg (25.7-33.7); MCHC 31.6 g/dl (32.0-35.9); MEAN CELL VOLUME 84.9 fl (80-96); MEAN PLT VOLUME 8.1 fl (7.5-11.1); MONO % 5.2 % (3.8-10.2); NEUT % 87.6 % (42.8-82.8); PLATELET COUNT 229 K/MM3 (134-434); RBC 4.33 M/mm3 (4.00-5.60); RDW 16.7 % (11.9-15.9); WHITE BLOOD COUNT 13.9 K/mm3 (4.0-10.0)
[2020-06-30] MEDS ORDERED: amLODIPine BESYLATE 5 MG TABLET (FP) ONE (06:56)
[2020-06-30] MEDS ORDERED: LOSARTAN POTASSIUM 50 MG TABLET PO ONE (07:55)
[2020-06-30] MEDS ORDERED: LOSARTAN POTASSIUM 50 MG TABLET ONE (08:15)
[2020-06-30 08:19] LABS: CHLORIDE 102 mmol/L (98-107); POTASSIUM 3.8 mmol/L (3.5-5.1); SODIUM 136 mmol/L (136-145)
[2020-06-30 08:21] LABS: ALBUMIN 3.8 g/dl (3.4-5.0); ANION GAP 6 MMOL/L (8-16); BLOOD UREA NITROGEN 17.4 mg/dL (7-18); CO2 29 mmol/L (21-32); GLUCOSE,RANDOM 116 mg/dL (74-106); MAGNESIUM 2.1 mg/dL (1.8-2.4)
[2020-06-30] MEDS ORDERED: DEXTROSE 50%-WATER - 25 GM/50 ML VIAL ONE (08:21)
[2020-06-30] MEDS ORDERED: DEXTROSE 50%-WATER - 25 GM/50 ML VIAL IVPUSH ONE (08:22)
[2020-06-30 08:24] LABS: SGOT/AST 19 U/L (15-37); SGPT/ALT 11 U/L (13-61)
[2020-06-30 08:26] LABS: BILIRUBIN,TOTAL 0.4 mg/dL (0.2-1)
[2020-06-30 08:27] LABS: ALK PHOS 74 U/L (45-117)
[2020-06-30 10:58] LABS: URINE APPEARANCE CLEAR; URINE BILIRUBIN NEGATIVE (NEGATIVE); URINE COLOR YELLOW; URINE GLUCOSE (UA) 3+ (NEGATIVE); URINE KETONE NEGATIVE (NEGATIVE); URINE LEUK ESTERASE NEGATIVE (NEGATIVE); URINE NITRITE NEGATIVE (NEGATIVE); URINE PROTEIN NEGATIVE (NEGATIVE)
[2020-06-30] MEDS ORDERED: HYDROCHLOROTHIAZIDE 25 MG TABLET (FP) PO ONE (17:54)
[2020-06-30 21:06] VITALS: BMI 20.8
[2020-07-01] MEDS ORDERED: METHADONE HCL 10 MG TABLET PO SCH (06:00)
[2020-07-01] MEDS: INSULIN SLIDING SCALE (NOVOLOG) 1 VIAL SQ SCH ×4 (06:12→22:01)
[2020-07-01] MEDS ORDERED: METHADONE HCL 40 MG DISPERSABLE TABLET ONE (06:56)
[2020-07-01] MEDS ORDERED: METHADONE HCL 10 MG TABLET ONE (06:57)
[2020-07-01] MEDS: METHADONE 40 MG, METHADONE 20 MG PO SCH (07:03)
[2020-07-01 08:17] LABS: BASO % 0.6 % (0-2.0); EOS % 0.4 % (0-4.5); HEMATOCRIT 39.5 % (35.4-49); HEMOGLOBIN 12.6 GM/dL (11.7-16.9); LYMPH % 27.9 % (8-40); MCH 26.8 pg (25.7-33.7); MCHC 31.9 g/dl (32.0-35.9); MEAN CELL VOLUME 83.8 fl (80-96); MEAN PLT VOLUME 9.1 fl (7.5-11.1); MONO % 8.2 % (3.8-10.2); NEUT % 62.9 % (42.8-82.8); PLATELET COUNT 234 K/MM3 (134-434); RBC 4.72 M/mm3 (4.00-5.60); RDW 16.3 % (11.9-15.9); WHITE BLOOD COUNT 5.6 K/mm3 (4.0-10.0)
[2020-07-01 09:06] LABS: POTASSIUM 4.5 mmol/L (3.5-5.1)
[2020-07-01 09:21] LABS: ALBUMIN 3.8 g/dl (3.4-5.0); BLOOD UREA NITROGEN 11.8 mg/dL (7-18)
[2020-07-01 09:23] LABS: CALCIUM 9.2 mg/dL (8.5-10.1)
[2020-07-01 09:27] LABS: BILIRUBIN,TOTAL 0.7 mg/dL (0.2-1); CREATININE 0.9 mg/dL (0.55-1.3); TOT PROT 8.3 g/dl (6.4-8.2)
[2020-07-01] MEDS ORDERED: PT OWN MED DRAWER 7, Y5N ONE (10:21)
[2020-07-01] MEDS: HYDROCHLOROTHIAZIDE 25 MG TABLET (FP) PO SCH (10:22)
[2020-07-01] MEDS: ASPIRIN 81 MG CHEWABLE TABLETS PO SCH (10:22)
[2020-07-01] MEDS: DULoxetine HCL 30 MG CAPSULE.DR PO SCH ×2 (10:22→22:06)
[2020-07-01] MEDS: amLODIPine BESYLATE 10 MG TABLET (FP) PO SCH (10:23)
[2020-07-01] MEDS: LOSARTAN POTASSIUM 50 MG TABLET PO SCH (10:23)
[2020-07-01] MEDS: HEPARIN NA (PORCINE) 5,000 UNITS/ML 1ML VIAL SQ SCH ×2 (10:24→21:56)
[2020-07-01] MEDS: ROSUVASTATIN CA 5 MG TABLET (FP) PO SCH (21:55)
[2020-07-01] MEDS: THIAMINE HCL 200 MG/2 ML VIAL IVPB SCH (21:57)
[2020-07-02] MEDS: THIAMINE HCL 200 MG/2 ML VIAL IVPB SCH ×2 (02:39→10:59)
[2020-07-02] MEDS ORDERED: METHADONE HCL 40 MG DISPERSABLE TABLET ONE (05:39)
[2020-07-02] MEDS ORDERED: METHADONE HCL 10 MG TABLET ONE (05:40)
[2020-07-02] MEDS: METHADONE 40 MG, METHADONE 20 MG PO SCH (05:41)
[2020-07-02] MEDS: INSULIN SLIDING SCALE (NOVOLOG) 1 VIAL SQ SCH ×4 (06:10→21:59)
[2020-07-02] MEDS: metFORMIN HCL 500 MG TABLET (FP) PO SCH ×2 (06:10→18:03)
[2020-07-02] MEDS ORDERED: INSULIN (NOVOLOG) ASPART 100 UNITS/ML 10ML VIAL ONE ×2 (06:30→12:07)
[2020-07-02] MEDS ORDERED: PT OWN MED DRAWER 7, Y5N ONE ×2 (10:46→21:43)
[2020-07-02] MEDS: DULoxetine HCL 30 MG CAPSULE.DR PO SCH ×2 (10:57→21:59)
[2020-07-02] MEDS: ASPIRIN 81 MG CHEWABLE TABLETS PO SCH (10:58)
[2020-07-02] MEDS: amLODIPine BESYLATE 10 MG TABLET (FP) PO SCH (10:58)
[2020-07-02] MEDS: LOSARTAN POTASSIUM 50 MG TABLET PO SCH (10:58)
[2020-07-02] MEDS: HYDROCHLOROTHIAZIDE 25 MG TABLET (FP) PO SCH (10:58)
[2020-07-02] MEDS: HEPARIN NA (PORCINE) 5,000 UNITS/ML 1ML VIAL SQ SCH ×2 (10:59→21:57)
[2020-07-02] MEDS ORDERED: THIAMINE HCL 200 MG/2 ML VIAL IVPB SCH (19:00)
[2020-07-02] MEDS: chlordiazePOXIDE HCL 25 MG CAPSULE PO SCH (21:57)
[2020-07-02] MEDS: ROSUVASTATIN CA 5 MG TABLET (FP) PO SCH (21:59)
[2020-07-02] MEDS: THIAMINE HCL 200 MG/2 ML VIAL IM SCH (21:59)
[2020-07-02] MEDS: levETIRAcetam 500 MG TABLET (FP) PO SCH (21:59)
[2020-07-02] MEDS ORDERED: THIAMINE HCL 100 MG TABLET (FP) PO SCH (22:00)
[2020-07-03] MEDS ORDERED: PT OWN MED DRAWER 7, Y5N ONE ×3 (03:04→21:56)
[2020-07-03] MEDS: THIAMINE HCL 200 MG/2 ML VIAL IM SCH ×3 (03:14→19:16)
[2020-07-03] MEDS ORDERED: METHADONE HCL 10 MG TABLET ONE (06:09)
[2020-07-03] MEDS ORDERED: METHADONE HCL 40 MG DISPERSABLE TABLET ONE (06:09)
[2020-07-03] MEDS: INSULIN SLIDING SCALE (NOVOLOG) 1 VIAL SQ SCH ×4 (06:21→22:24)
[2020-07-03] MEDS: METHADONE 40 MG, METHADONE 20 MG PO SCH (06:21)
[2020-07-03] MEDS: chlordiazePOXIDE HCL 25 MG CAPSULE PO SCH ×3 (06:22→22:10)
[2020-07-03] MEDS: metFORMIN HCL 500 MG TABLET (FP) PO SCH ×2 (06:22→17:35)
[2020-07-03] MEDS: levETIRAcetam 500 MG TABLET (FP) PO SCH ×2 (10:59→22:09)
[2020-07-03] MEDS: HYDROCHLOROTHIAZIDE 25 MG TABLET (FP) PO SCH (10:59)
[2020-07-03] MEDS: HEPARIN NA (PORCINE) 5,000 UNITS/ML 1ML VIAL SQ SCH ×2 (10:59→22:10)
[2020-07-03] MEDS: DULoxetine HCL 30 MG CAPSULE.DR PO SCH ×2 (10:59→23:04)
[2020-07-03] MEDS: ASPIRIN 81 MG CHEWABLE TABLETS PO SCH (10:59)
[2020-07-03] MEDS: LOSARTAN POTASSIUM 50 MG TABLET PO SCH (10:59)
[2020-07-03] MEDS: amLODIPine BESYLATE 10 MG TABLET (FP) PO SCH (10:59)
[2020-07-03] MEDS ORDERED: INSULIN (NOVOLOG) ASPART 100 UNITS/ML 10ML VIAL ONE (21:55)
[2020-07-03] MEDS: ROSUVASTATIN CA 5 MG TABLET (FP) PO SCH (22:09)
[2020-07-04] MEDS ORDERED: PT OWN MED DRAWER 7, Y5N ONE ×2 (01:17→10:14)
[2020-07-04] MEDS: THIAMINE HCL 200 MG/2 ML VIAL IM SCH ×2 (03:11→10:17)
[2020-07-04] MEDS ORDERED: METHADONE HCL 40 MG DISPERSABLE TABLET ONE (05:05)
[2020-07-04] MEDS ORDERED: METHADONE HCL 10 MG TABLET ONE (05:06)
[2020-07-04] MEDS: METHADONE 40 MG, METHADONE 20 MG PO SCH (05:55)
[2020-07-04] MEDS: metFORMIN HCL 500 MG TABLET (FP) PO SCH (06:13)
[2020-07-04] MEDS: INSULIN SLIDING SCALE (NOVOLOG) 1 VIAL SQ SCH ×2 (06:14→12:00)
[2020-07-04 08:23] LABS: POTASSIUM 4.4 mmol/L (3.5-5.1)
[2020-07-04 08:25] LABS: ALBUMIN 3.5 g/dl (3.4-5.0); BLOOD UREA NITROGEN 30.8 mg/dL (7-18)
[2020-07-04 08:28] LABS: BASO % 0.8 % (0-2.0); CREATININE 1.4 mg/dL (0.55-1.3); EOS % 0.6 % (0-4.5); HEMATOCRIT 37.5 % (35.4-49); HEMOGLOBIN 12.2 GM/dL (11.7-16.9); LYMPH % 28.9 % (8-40); MCH 27.7 pg (25.7-33.7); MCHC 32.6 g/dl (32.0-35.9); MEAN CELL VOLUME 85.1 fl (80-96); MEAN PLT VOLUME 9.2 fl (7.5-11.1); MONO % 7.8 % (3.8-10.2); NEUT % 61.9 % (42.8-82.8); PLATELET COUNT 198 K/MM3 (134-434); RBC 4.41 M/mm3 (4.00-5.60); RDW 16.3 % (11.9-15.9); WHITE BLOOD COUNT 6.9 K/mm3 (4.0-10.0)
[2020-07-04 08:30] LABS: BILIRUBIN,TOTAL 0.6 mg/dL (0.2-1); TOT PROT 7.7 g/dl (6.4-8.2)
[2020-07-04] MEDS: levETIRAcetam 500 MG TABLET (FP) PO SCH (10:16)
[2020-07-04] MEDS: amLODIPine BESYLATE 10 MG TABLET (FP) PO SCH (10:17)
[2020-07-04] MEDS: HYDROCHLOROTHIAZIDE 25 MG TABLET (FP) PO SCH (10:17)
[2020-07-04] MEDS: DULoxetine HCL 30 MG CAPSULE.DR PO SCH (10:17)
[2020-07-04] MEDS: LOSARTAN POTASSIUM 50 MG TABLET PO SCH (10:17)
[2020-07-04] MEDS: HEPARIN NA (PORCINE) 5,000 UNITS/ML 1ML VIAL SQ SCH (10:17)
[2020-07-04] MEDS: ASPIRIN 81 MG CHEWABLE TABLETS PO SCH (10:17)
[2020-07-04 10:35] VITALS: BP 118/74; PULSE 90; TEMP 97.9
== END 2020-07-04 15:16 | disposition home or self-care (01) | DRG 637 ==
LOC: JER 05:29 → JERBED 09:33 → J5S 18:13
PROVIDERS: ADMIT Internal Medicine; ATTEND Internal Medicine
DX: E11.649 Type 2 diabetes mellitus with hypoglycemia without coma (principal); G93.41 Metabolic encephalopathy; F11.20 Opioid dependence, uncomplicated; F10.232 Alcohol dependence with withdrawal with perceptual disturbance; E87.0 Hyperosmolality and hypernatremia; R56.9 Unspecified convulsions; I10 Essential (primary) hypertension; D72.829 Elevated white blood cell count, unspecified; E78.5 Hyperlipidemia, unspecified; E11.42 Type 2 diabetes mellitus with diabetic polyneuropathy; Z86.19 Personal history of other infectious and parasitic diseases; Z79.4 Long term (current) use of insulin
CPT/HCPCS: 36415; 71045-TC-FY; 80053; 81003; 82550; 82607; 82962; 83036; 83735; 84443; 84484; 85025; 86780; 87077; 87086; 87186; 93005; 93010; 99285-25; C9803; J1644; U0003

== ENCOUNTER 2020-07-07 12:03 | Inpatient (IN) | payer OTHER ==
[2020-07-07] MEDS ORDERED: SODIUM CHLORIDE 1,000 ML IV STA ×3 (12:13→13:10)
[2020-07-07] MEDS ORDERED: INSULIN REGULAR HUMAN 100 UNITS/ML *VIAL IVPUSH ONE (12:47)
[2020-07-07] MEDS ORDERED: CALCIUM GLUCONATE 10% - 1,000 MG/10 ML VIAL IVPUSH ONE (12:47)
[2020-07-07] MEDS ORDERED: CALCIUM GLUCONATE 10% - 1,000 MG/10 ML VIAL ONE (12:49)
[2020-07-07 13:15] LABS: HEMATOCRIT 41.6 % (35.4-49); HEMOGLOBIN 11.9 GM/dL (11.7-16.9); MCH 27.3 pg (25.7-33.7); MCHC 28.7 g/dl (32.0-35.9); MEAN CELL VOLUME 95.1 fl (80-96); MEAN PLT VOLUME 11.1 fl (7.5-11.1); PLATELET COUNT 202 K/MM3 (134-434); RBC 4.37 M/mm3 (4.00-5.60); RDW 18.4 % (11.9-15.9); WHITE BLOOD COUNT 15.8 K/mm3 (4.0-10.0)
[2020-07-07 13:19] LABS: VENOUS BASE EXCESS -23.8 mmol/L (-2-2); VENOUS PCO2 26.3 mmHg (38-52)
[2020-07-07 13:23] LABS: VENOUS PH 6.999 (7.310-7.410)
[2020-07-07 13:26] LABS: INR 0.96 (0.83-1.09); PROTHROMBIN TIME (PATIENT) 11.8 SEC (9.7-13.0)
[2020-07-07 13:27] LABS: ALBUMIN 3.7 g/dl (3.4-5.0); CALCIUM 9.5 mg/dL (8.5-10.1); MAGNESIUM 3.5 mg/dL (1.8-2.4)
[2020-07-07 13:30] LABS: CREATININE 3.3 mg/dL (0.55-1.3)
[2020-07-07 13:31] LABS: BILIRUBIN,TOTAL 1.2 mg/dL (0.2-1); TOT PROT 8.3 g/dl (6.4-8.2)
[2020-07-07] MEDS ORDERED: SODIUM BICARBONATE 8.4% 50 MEQ/50 ML VIAL IV ONE (13:34)
[2020-07-07] MEDS ORDERED: SODIUM BICARBONATE 8.4% - 50 ML ONE (13:36)
[2020-07-07 13:51] LABS: POTASSIUM 8.9 mmol/L (3.5-5.1)
[2020-07-07 14:15] LABS: ANISOCYTOSIS 0; MACROCYTOSIS 0; PLATELET ESTIMATE NORMAL
[2020-07-07] MEDS ORDERED: INSULIN REGULAR 100 UNITS in SODIUM CHLORIDE 99 ML IVPB SCH ×2 (14:30→18:45)
[2020-07-07 14:46] LABS: VENOUS BASE EXCESS -24.3 mmol/L (-2-2); VENOUS O2 SATURATION 59.8 % (70-80); VENOUS PCO2 35.2 mmHg (38-52)
[2020-07-07 14:49] LABS: VENOUS PH 6.932 (7.310-7.410)
[2020-07-07 14:54] LABS: ACTIVATED PTT 25.3 SECONDS (25.2-36.5)
[2020-07-07 14:57] LABS: URINE APPEARANCE CLOUDY; URINE BILIRUBIN NEGATIVE (NEGATIVE); URINE COLOR YELLOW; URINE GLUCOSE (UA) 3+ (NEGATIVE); URINE KETONE 2+ (NEGATIVE); URINE LEUK ESTERASE NEGATIVE (NEGATIVE); URINE NITRITE NEGATIVE (NEGATIVE); URINE PROTEIN NEGATIVE (NEGATIVE); URINE UROBILINOGEN 0.2 mg/dL (0.2-1.0)
[2020-07-07 15:09] LABS: CALCIUM 9.1 mg/dL (8.5-10.1)
[2020-07-07 15:10] LABS: BLOOD UREA NITROGEN 78.1 mg/dL (7-18)
[2020-07-07 15:13] LABS: CREATININE 3.2 mg/dL (0.55-1.3)
[2020-07-07 15:31] LABS: POTASSIUM 6.6 mmol/L (3.5-5.1)
[2020-07-07] MEDS ORDERED: SODIUM CHLORIDE 0.45% 1,000 ML IV SCH (16:45)
[2020-07-07 17:46] LABS: CHLORIDE 100 mmol/L (98-107); POTASSIUM 4.8 mmol/L (3.5-5.1); SODIUM 138 mmol/L (136-145)
[2020-07-07 17:48] LABS: ANION GAP 25 MMOL/L (8-16); CO2 13 mmol/L (21-32)
[2020-07-07 17:49] LABS: COCAINE, UR NEGATIVE ng/ml (CUTOFF=300); OPIATES, URI NEGATIVE ng/ml (CUTOFF=300); URINE BARBITURATES NEGATIVE ng/ml (CUTOFF=200)
[2020-07-07 17:50] LABS: PHENCYCLIDINE,URINE NEGATIVE ng/ml (CUTOFF=25)
[2020-07-07 17:51] LABS: CREATININE 2.9 mg/dL (0.55-1.3); URINE AMPHETAMINES NEGATIVE ng/ml (CUTOFF=500)
[2020-07-07 17:52] LABS: PHOSPHOROUS 4.4 mg/dL (2.5-4.9)
[2020-07-07 17:58] LABS: URINE BENZODIAZEPINES POSITIVE ng/ml (CUTOFF=200)
[2020-07-07 17:59] LABS: METHADONE, UR POSITIVE ng/ml (CUTOFF=300)
[2020-07-07] MEDS ORDERED: SODIUM CHLORIDE 0.45%/POT 20 MEQ/1,000 ML INFUS.BAG IV SCH (18:00)
[2020-07-07 18:01] LABS: GLUCOSE,RANDOM 665 mg/dL (74-106)
[2020-07-07] MEDS ORDERED: PNEUMOC 13-VAL CONJ-DIP CRM/PF 0.5 ML DISP.SYRIN IM ONE (18:41)
[2020-07-07 20:29] LABS: POTASSIUM 4.6 mmol/L (3.5-5.1)
[2020-07-07 20:31] LABS: BLOOD UREA NITROGEN 70.3 mg/dL (7-18)
[2020-07-07 20:35] LABS: CREATININE 2.8 mg/dL (0.55-1.3)
[2020-07-07] MEDS: MUPIROCIN 2% TOPICAL OINTMENT FOR DECOLONIZATION NS SCH (21:08)
[2020-07-07] MEDS: levETIRAcetam 500 MG/5 ML INJECTION VIAL IVPB SCH (21:08)
[2020-07-07] MEDS: CHLORHEXIDINE GLUCONATE 4% CLEANSER FOR DECOLONIZATION TP SCH (21:09)
[2020-07-07] MEDS: HEPARIN NA (PORCINE) 5,000 UNITS/ML 1ML VIAL SQ SCH (21:10)
[2020-07-08 00:57] LABS: POTASSIUM 3.9 mmol/L (3.5-5.1)
[2020-07-08 00:58] LABS: CALCIUM 9.4 mg/dL (8.5-10.1)
[2020-07-08 01:02] LABS: CREATININE 2.1 mg/dL (0.55-1.3)
[2020-07-08] MEDS ORDERED: DEXTROSE 50%-WATER - 25 GM/50 ML VIAL IVPUSH ONE (01:50)
[2020-07-08] MEDS ORDERED: DEXTROSE 50%-WATER 25 GM/50 ML DISP.SYRIN ONE (01:54)
[2020-07-08] MEDS ORDERED: SODIUM CHLORIDE 0.45%/POT 20 MEQ/1,000 ML INFUS.BAG IV SCH ×2 (03:05→07:30)
[2020-07-08] MEDS ORDERED: D5-1/2NS+20 MEQ KCL - 20 MEQ/1,000 ML INFUS.BAG IV SCH (04:00)
[2020-07-08] MEDS ORDERED: LABETALOL HCL 5 MG/1 ML (100MG/20 ML VIAL) IVPUSH ONE ×3 (04:49→19:07)
[2020-07-08] MEDS: HEPARIN NA (PORCINE) 5,000 UNITS/ML 1ML VIAL SQ SCH ×3 (05:01→21:52)
[2020-07-08 06:57] LABS: BASO % 0.3 % (0-2.0); HEMATOCRIT 31.4 % (35.4-49); LYMPH % 3.5 % (8-40); MCH 27.2 pg (25.7-33.7); MCHC 31.8 g/dl (32.0-35.9); MEAN CELL VOLUME 85.6 fl (80-96); MEAN PLT VOLUME 10.2 fl (7.5-11.1); MONO % 4.7 % (3.8-10.2); NEUT % 91.5 % (42.8-82.8); PLATELET COUNT 159 K/MM3 (134-434); RBC 3.67 M/mm3 (4.00-5.60); RDW 16.8 % (11.9-15.9); WHITE BLOOD COUNT 10.1 K/mm3 (4.0-10.0)
[2020-07-08] MEDS: INSULIN SLIDING SCALE (NOVOLOG) 1 VIAL SQ SCH ×2 (07:04→11:21)
[2020-07-08] MEDS ORDERED: CALCIUM GLUCONATE 10% - 1,000 MG/10 ML VIAL IVPUSH ONE (09:19)
[2020-07-08 09:29] LABS: ANISOCYTOSIS 1+; MACROCYTOSIS 0; OVALOCYTE 1+; PLATELET ESTIMATE DECREASED; TEAR DROP CELLS 1+; TOXIC GRANULATION 2+
[2020-07-08] MEDS ORDERED: SODIUM CHLORIDE 1,000 ML IV SCH (09:30)
[2020-07-08] MEDS: levETIRAcetam 500 MG/5 ML INJECTION VIAL IVPB SCH ×2 (09:46→21:52)
[2020-07-08] MEDS: amLODIPine BESYLATE 5 MG TABLET (FP) PO SCH (10:31)
[2020-07-08] MEDS ORDERED: INSULIN DRIP - PLEASE ORDER UNDER SETS NR ONE (11:05)
[2020-07-08] MEDS: MUPIROCIN 2% TOPICAL OINTMENT FOR DECOLONIZATION NS SCH ×2 (11:20→21:52)
[2020-07-08 11:50] LABS: POTASSIUM 4.4 mmol/L (3.5-5.1)
[2020-07-08 11:51] LABS: CALCIUM 9.3 mg/dL (8.5-10.1)
[2020-07-08 11:52] LABS: BLOOD UREA NITROGEN 48.5 mg/dL (7-18)
[2020-07-08 11:55] LABS: CREATININE 1.8 mg/dL (0.55-1.3)
[2020-07-08] MEDS ORDERED: INSULIN REGULAR 100 UNITS in SODIUM CHLORIDE 99 ML IVPB SCH (12:00)
[2020-07-08] MEDS: INSULIN (LEVEMIR) 100 UNITS/ML UNITS SQ SCH ×2 (12:27→22:10)
[2020-07-08] MEDS ORDERED: DEXTROSE 50%-WATER - 25 GM/50 ML VIAL IVPUSH PRN (15:42)
[2020-07-08] MEDS: CHLORHEXIDINE GLUCONATE 4% CLEANSER FOR DECOLONIZATION TP SCH (21:52)
[2020-07-08] MEDS: LABETALOL HCL 5 MG/1 ML (100MG/20 ML VIAL) IVPUSH PRN (23:25)
[2020-07-09] MEDS: INSULIN SLIDING SCALE (NOVOLOG) 1 VIAL SQ SCH ×6 (00:43→22:43)
[2020-07-09] MEDS: LABETALOL HCL 5 MG/1 ML (100MG/20 ML VIAL) IVPUSH PRN ×2 (06:15→17:03)
[2020-07-09] MEDS: HEPARIN NA (PORCINE) 5,000 UNITS/ML 1ML VIAL SQ SCH ×3 (06:32→22:42)
[2020-07-09 07:03] LABS: HEMATOCRIT 40.1 % (35.4-49); HEMOGLOBIN 12.7 GM/dL (11.7-16.9); MCH 27.1 pg (25.7-33.7); MCHC 31.7 g/dl (32.0-35.9); MEAN CELL VOLUME 85.3 fl (80-96); MEAN PLT VOLUME 9.6 fl (7.5-11.1); PLATELET COUNT 143 K/MM3 (134-434); RDW 16.6 % (11.9-15.9)
[2020-07-09 07:18] LABS: POTASSIUM 3.7 mmol/L (3.5-5.1)
[2020-07-09 07:21] LABS: CALCIUM 9.3 mg/dL (8.5-10.1)
[2020-07-09 07:22] LABS: ALBUMIN 3.3 g/dl (3.4-5.0); BLOOD UREA NITROGEN 29.2 mg/dL (7-18); MAGNESIUM 2.3 mg/dL (1.8-2.4)
[2020-07-09 07:24] LABS: CREATININE 1.1 mg/dL (0.55-1.3)
[2020-07-09 07:25] LABS: PHOSPHOROUS 2.2 mg/dL (2.5-4.9)
[2020-07-09 07:26] LABS: BILIRUBIN,TOTAL 1.4 mg/dL (0.2-1); TOT PROT 7.6 g/dl (6.4-8.2)
[2020-07-09] MEDS ORDERED: SODIUM CHLORIDE 0.45% 1,000 ML IV SCH ×2 (07:30→10:00)
[2020-07-09] MEDS ORDERED: NAPH,MB-DB/K PH,MBDB POWDER PACKET PO ONE (08:42)
[2020-07-09] MEDS: amLODIPine BESYLATE 5 MG TABLET (FP) PO SCH (09:27)
[2020-07-09] MEDS: levETIRAcetam 500 MG/5 ML INJECTION VIAL IVPB SCH (09:27)
[2020-07-09] MEDS: INSULIN (LEVEMIR) 100 UNITS/ML UNITS SQ SCH (09:29)
[2020-07-09] MEDS ORDERED: LOSARTAN POTASSIUM 50 MG TABLET PO SCH (10:15)
[2020-07-09] MEDS ORDERED: HYDROCHLOROTHIAZIDE 25 MG TABLET (FP) PO SCH (10:15)
[2020-07-09] MEDS: MUPIROCIN 2% TOPICAL OINTMENT FOR DECOLONIZATION NS SCH (10:56)
[2020-07-09 11:30] LABS: ARTERIAL BLD GAS O2 SATURATION 98.6 mmHg (95-98); ARTERIAL BLOOD GAS BASE EXCESS -0.7 mmol/L (-2-2); ARTERIAL BLOOD GAS pH 7.439 (7.350-7.450)
[2020-07-09 11:31] LABS: ALLENS TEST POSITIVE
[2020-07-09] MEDS ORDERED: DEXTROSE 50%-WATER - 25 GM/50 ML VIAL IVPUSH PRN (18:01)
[2020-07-09] MEDS: SODIUM CHLORIDE 0.45% 1,000 ML IV SCH (20:49)
[2020-07-09] MEDS ORDERED: INSULIN SLIDING SCALE (NOVOLOG) 1 VIAL SQ SCH (22:00)
[2020-07-09] MEDS ORDERED: levETIRAcetam 500 MG TABLET (FP) PO SCH (22:00)
[2020-07-09] MEDS ORDERED: INSULIN (LEVEMIR) 100 UNITS/ML UNITS SQ SCH (22:00)
[2020-07-09] MEDS: levETIRAcetam 500 MG TABLET (FP) PO SCH (22:42)
[2020-07-10] MEDS: INSULIN SLIDING SCALE (NOVOLOG) 1 VIAL SQ SCH ×4 (06:21→22:19)
[2020-07-10] MEDS: HEPARIN NA (PORCINE) 5,000 UNITS/ML 1ML VIAL SQ SCH ×3 (06:22→22:18)
[2020-07-10] MEDS ORDERED: MULTIVITAMINS (DAILY MVI) TABLET (FP) PO SCH (10:00)
[2020-07-10] MEDS ORDERED: HYDROCHLOROTHIAZIDE 25 MG TABLET (FP) PO SCH (10:00)
[2020-07-10] MEDS: LOSARTAN POTASSIUM 50 MG TABLET PO SCH (10:34)
[2020-07-10] MEDS: levETIRAcetam 500 MG TABLET (FP) PO SCH ×2 (10:34→22:18)
[2020-07-10] MEDS: MULTIVITAMINS (DAILY MVI) TABLET (FP) PO SCH (10:34)
[2020-07-10] MEDS: SODIUM CHLORIDE 0.45% 1,000 ML IV SCH ×2 (10:34→10:44)
[2020-07-10] MEDS: amLODIPine BESYLATE 10 MG TABLET (FP) PO SCH (10:34)
[2020-07-10 12:40] LABS: BASO % 0.5 % (0-2.0); HEMATOCRIT 43.5 % (35.4-49); HEMOGLOBIN 13.9 GM/dL (11.7-16.9); LYMPH % 13.8 % (8-40); MCH 27.7 pg (25.7-33.7); MEAN CELL VOLUME 86.4 fl (80-96); MEAN PLT VOLUME 10.1 fl (7.5-11.1); MONO % 6.6 % (3.8-10.2); NEUT % 79.1 % (42.8-82.8); PLATELET COUNT 127 K/MM3 (134-434); RBC 5.03 M/mm3 (4.00-5.60); RDW 16.9 % (11.9-15.9); WHITE BLOOD COUNT 9.8 K/mm3 (4.0-10.0)
[2020-07-10 12:58] LABS: CALCIUM 8.9 mg/dL (8.5-10.1)
[2020-07-10 12:59] LABS: ALBUMIN 3.1 g/dl (3.4-5.0); BLOOD UREA NITROGEN 28.4 mg/dL (7-18); MAGNESIUM 2.2 mg/dL (1.8-2.4)
[2020-07-10 13:02] LABS: CREATININE 1.1 mg/dL (0.55-1.3); PHOSPHOROUS 2.9 mg/dL (2.5-4.9)
[2020-07-10] MEDS: LABETALOL HCL 100 MG TABLET (FP) PO SCH ×2 (13:02→22:18)
[2020-07-10 13:04] LABS: TOT PROT 7.5 g/dl (6.4-8.2)
[2020-07-10] MEDS ORDERED: POTASSIUM CHLORIDE TABS 20 MEQ TABLET.ER (FP) PO ONE (17:56)
[2020-07-10] MEDS ORDERED: POTASSIUM CHLORIDE ORAL LIQUID 20 MEQ/15 ML PO ONE (22:15)
[2020-07-11] MEDS: INSULIN SLIDING SCALE (NOVOLOG) 1 VIAL SQ SCH ×4 (06:22→21:28)
[2020-07-11] MEDS: HEPARIN NA (PORCINE) 5,000 UNITS/ML 1ML VIAL SQ SCH ×3 (06:22→21:27)
[2020-07-11 08:29] LABS: BASO % 0.4 % (0-2.0); EOS % 0.3 % (0-4.5); HEMATOCRIT 41.1 % (35.4-49); HEMOGLOBIN 13.3 GM/dL (11.7-16.9); LYMPH % 15.3 % (8-40); MCHC 32.4 g/dl (32.0-35.9); MEAN CELL VOLUME 86.3 fl (80-96); MONO % 4.1 % (3.8-10.2); NEUT % 79.9 % (42.8-82.8); PLATELET COUNT 124 K/MM3 (134-434); RBC 4.76 M/mm3 (4.00-5.60); WHITE BLOOD COUNT 8.9 K/mm3 (4.0-10.0)
[2020-07-11 09:21] LABS: ALBUMIN 3.1 g/dl (3.4-5.0); BILIRUBIN,TOTAL 0.9 mg/dL (0.2-1); BLOOD UREA NITROGEN 30.3 mg/dL (7-18); CALCIUM 8.7 mg/dL (8.5-10.1); POTASSIUM 3.1 mmol/L (3.5-5.1); TOT PROT 7.2 g/dl (6.4-8.2)
[2020-07-11] MEDS: LABETALOL HCL 100 MG TABLET (FP) PO SCH ×2 (09:59→21:27)
[2020-07-11] MEDS: amLODIPine BESYLATE 10 MG TABLET (FP) PO SCH (09:59)
[2020-07-11] MEDS: levETIRAcetam 500 MG TABLET (FP) PO SCH ×2 (09:59→21:27)
[2020-07-11] MEDS: LOSARTAN POTASSIUM 50 MG TABLET PO SCH (09:59)
[2020-07-11] MEDS: MULTIVITAMINS (DAILY MVI) TABLET (FP) PO SCH (09:59)
[2020-07-11] MEDS ORDERED: POTASSIUM CHLORIDE ORAL LIQUID 20 MEQ/15 ML PO ONE (11:27)
[2020-07-11] MEDS ORDERED: POTASSIUM CHLORIDE TABS 20 MEQ TABLET.ER (FP) PO ONE ×2 (11:38→15:26)
[2020-07-11] MEDS ORDERED: INSULIN (NOVOLOG) ASPART 100 UNITS/ML 10ML VIAL ONE ×2 (12:22→21:21)
[2020-07-12] MEDS: HEPARIN NA (PORCINE) 5,000 UNITS/ML 1ML VIAL SQ SCH ×3 (06:38→21:36)
[2020-07-12] MEDS: INSULIN SLIDING SCALE (NOVOLOG) 1 VIAL SQ SCH ×4 (06:38→21:37)
[2020-07-12 09:11] LABS: BLOOD UREA NITROGEN 28.4 mg/dL (7-18); CALCIUM 8.7 mg/dL (8.5-10.1); MAGNESIUM 2.4 mg/dL (1.8-2.4)
[2020-07-12 09:15] LABS: CREATININE 1.1 mg/dL (0.55-1.3)
[2020-07-12] MEDS: LOSARTAN POTASSIUM 50 MG TABLET PO SCH (09:44)
[2020-07-12] MEDS: levETIRAcetam 500 MG TABLET (FP) PO SCH ×2 (09:44→21:36)
[2020-07-12] MEDS: amLODIPine BESYLATE 10 MG TABLET (FP) PO SCH (09:44)
[2020-07-12] MEDS: LABETALOL HCL 100 MG TABLET (FP) PO SCH ×2 (09:44→21:36)
[2020-07-12] MEDS: MULTIVITAMINS (DAILY MVI) TABLET (FP) PO SCH (09:44)
[2020-07-12] MEDS ORDERED: POTASSIUM CHLORIDE ORAL LIQUID 20 MEQ/15 ML PO ONE ×2 (12:45→17:00)
[2020-07-12] MEDS ORDERED: POTASSIUM CHLORIDE TABS 20 MEQ TABLET.ER (FP) PO ONE ×3 (13:14→18:00)
[2020-07-12] MEDS ORDERED: INSULIN (NOVOLOG) ASPART 100 UNITS/ML 10ML VIAL ONE (21:18)
[2020-07-12] MEDS ORDERED: INSULIN (LEVEMIR) 100 UNITS/ML UNITS SQ SCH (22:00)
[2020-07-13] MEDS: INSULIN SLIDING SCALE (NOVOLOG) 1 VIAL SQ SCH ×4 (06:18→21:44)
[2020-07-13] MEDS: HEPARIN NA (PORCINE) 5,000 UNITS/ML 1ML VIAL SQ SCH ×3 (06:23→21:44)
[2020-07-13] MEDS ORDERED: INSULIN (LEVEMIR) 100 UNITS/ML UNITS SQ SCH ×2 (07:00→22:00)
[2020-07-13 08:24] LABS: POTASSIUM 4.1 mmol/L (3.5-5.1)
[2020-07-13 08:27] LABS: CALCIUM 8.4 mg/dL (8.5-10.1)
[2020-07-13 08:28] LABS: BLOOD UREA NITROGEN 19.8 mg/dL (7-18)
[2020-07-13 08:31] LABS: CREATININE 0.9 mg/dL (0.55-1.3)
[2020-07-13 08:32] LABS: BILIRUBIN,TOTAL 0.7 mg/dL (0.2-1)
[2020-07-13 08:36] LABS: TOT PROT 7.2 g/dl (6.4-8.2)
[2020-07-13] MEDS ORDERED: PT OWN MED DRAWER 7, Y5N ONE (08:45)
[2020-07-13 08:54] LABS: BASO % 0.6 % (0-2.0); EOS % 0.1 % (0-4.5); HEMATOCRIT 42.1 % (35.4-49); HEMOGLOBIN 13.3 GM/dL (11.7-16.9); LYMPH % 22.7 % (8-40); MCH 27.6 pg (25.7-33.7); MCHC 31.7 g/dl (32.0-35.9); MEAN PLT VOLUME 10.5 fl (7.5-11.1); MONO % 5.9 % (3.8-10.2); NEUT % 70.7 % (42.8-82.8); PLATELET COUNT 128 K/MM3 (134-434); RBC 4.84 M/mm3 (4.00-5.60); RDW 17.2 % (11.9-15.9); WHITE BLOOD COUNT 8.2 K/mm3 (4.0-10.0)
[2020-07-13] MEDS: LABETALOL HCL 100 MG TABLET (FP) PO SCH ×2 (11:31→21:44)
[2020-07-13] MEDS: levETIRAcetam 500 MG TABLET (FP) PO SCH ×2 (11:31→21:44)
[2020-07-13] MEDS: LOSARTAN POTASSIUM 50 MG TABLET PO SCH (11:31)
[2020-07-13] MEDS: MULTIVITAMINS (DAILY MVI) TABLET (FP) PO SCH (11:32)
[2020-07-13] MEDS: amLODIPine BESYLATE 10 MG TABLET (FP) PO SCH (11:32)
[2020-07-14] MEDS: HEPARIN NA (PORCINE) 5,000 UNITS/ML 1ML VIAL SQ SCH ×3 (07:01→21:23)
[2020-07-14] MEDS: INSULIN (LEVEMIR) 100 UNITS/ML UNITS SQ SCH (07:02)
[2020-07-14] MEDS: INSULIN SLIDING SCALE (NOVOLOG) 1 VIAL SQ SCH ×4 (07:02→21:23)
[2020-07-14 08:35] LABS: BASO % 0.8 % (0-2.0); EOS % 0.2 % (0-4.5); HEMATOCRIT 34.7 % (35.4-49); HEMOGLOBIN 11.2 GM/dL (11.7-16.9); LYMPH % 29.5 % (8-40); MCH 27.2 pg (25.7-33.7); MCHC 32.2 g/dl (32.0-35.9); MEAN CELL VOLUME 84.6 fl (80-96); MEAN PLT VOLUME 10.4 fl (7.5-11.1); MONO % 13.3 % (3.8-10.2); NEUT % 56.2 % (42.8-82.8); PLATELET COUNT 173 K/MM3 (134-434); RBC 4.11 M/mm3 (4.00-5.60); RDW 17.1 % (11.9-15.9); WHITE BLOOD COUNT 7.4 K/mm3 (4.0-10.0)
[2020-07-14 08:50] LABS: POTASSIUM 4.4 mmol/L (3.5-5.1)
[2020-07-14 09:30] LABS: ALBUMIN 2.7 g/dl (3.4-5.0); CALCIUM 8.3 mg/dL (8.5-10.1)
[2020-07-14 09:31] LABS: CREATININE 0.9 mg/dL (0.55-1.3)
[2020-07-14 09:32] LABS: BILIRUBIN,TOTAL 0.8 mg/dL (0.2-1); TOT PROT 6.4 g/dl (6.4-8.2)
[2020-07-14] MEDS: levETIRAcetam 500 MG TABLET (FP) PO SCH ×2 (09:51→21:23)
[2020-07-14] MEDS: MULTIVITAMINS (DAILY MVI) TABLET (FP) PO SCH (09:52)
[2020-07-14] MEDS: amLODIPine BESYLATE 10 MG TABLET (FP) PO SCH (09:52)
[2020-07-14] MEDS: LOSARTAN POTASSIUM 50 MG TABLET PO SCH (09:52)
[2020-07-14] MEDS: LABETALOL HCL 100 MG TABLET (FP) PO SCH ×2 (09:52→21:23)
[2020-07-14] MEDS ORDERED: MULTIVITAMINS (DAILY MVI) TABLET (FP) PO SCH (10:00)
[2020-07-14] MEDS ORDERED: INSULIN (NOVOLOG) ASPART 100 UNITS/ML 10ML VIAL ONE ×2 (11:29→21:19)
[2020-07-15] MEDS: HEPARIN NA (PORCINE) 5,000 UNITS/ML 1ML VIAL SQ SCH ×4 (06:18→21:32)
[2020-07-15] MEDS: INSULIN (LEVEMIR) 100 UNITS/ML UNITS SQ SCH (06:19)
[2020-07-15] MEDS: INSULIN SLIDING SCALE (NOVOLOG) 1 VIAL SQ SCH ×3 (06:19→17:26)
[2020-07-15] MEDS: METHADONE HCL 10 MG TABLET PO SCH (08:18)
[2020-07-15] MEDS: MULTIVITAMINS (DAILY MVI) TABLET (FP) PO SCH (10:13)
[2020-07-15] MEDS: levETIRAcetam 500 MG TABLET (FP) PO SCH ×3 (10:13→21:32)
[2020-07-15] MEDS: THIAMINE HCL 100 MG TABLET (FP) PO SCH (10:14)
[2020-07-15] MEDS: amLODIPine BESYLATE 10 MG TABLET (FP) PO SCH (10:14)
[2020-07-15] MEDS: LABETALOL HCL 100 MG TABLET (FP) PO SCH ×3 (10:14→21:32)
[2020-07-15] MEDS: LOSARTAN POTASSIUM 50 MG TABLET PO SCH (10:16)
[2020-07-15] MEDS ORDERED: INSULIN (NOVOLOG) ASPART 100 UNITS/ML 10ML VIAL ONE (11:31)
[2020-07-15] MEDS ORDERED: amLODIPine BESYLATE 5 MG TABLET (FP) PO SCH (16:05)
[2020-07-15] MEDS ORDERED: DEXTROSE 50%-WATER - 25 GM/50 ML VIAL IVPUSH ONE ×2 (18:49→18:50)
[2020-07-16] MEDS: HEPARIN NA (PORCINE) 5,000 UNITS/ML 1ML VIAL SQ SCH ×2 (06:30→13:09)
[2020-07-16] MEDS: METHADONE HCL 10 MG TABLET PO SCH (06:30)
[2020-07-16] MEDS ORDERED: INSULIN (LEVEMIR) 100 UNITS/ML UNITS SQ SCH (07:00)
[2020-07-16] MEDS: LABETALOL HCL 100 MG TABLET (FP) PO SCH ×2 (10:46→21:34)
[2020-07-16] MEDS: levETIRAcetam 500 MG TABLET (FP) PO SCH ×2 (10:46→21:33)
[2020-07-16] MEDS: THIAMINE HCL 100 MG TABLET (FP) PO SCH (10:46)
[2020-07-16] MEDS: MULTIVITAMINS (DAILY MVI) TABLET (FP) PO SCH (10:46)
[2020-07-16] MEDS: LOSARTAN POTASSIUM 50 MG TABLET PO SCH (10:46)
[2020-07-16] MEDS: INSULIN SLIDING SCALE (NOVOLOG) 1 VIAL SQ SCH ×3 (13:10→22:36)
[2020-07-17] MEDS: METHADONE HCL 10 MG TABLET PO SCH (05:14)
[2020-07-17] MEDS: INSULIN SLIDING SCALE (NOVOLOG) 1 VIAL SQ SCH ×4 (06:10→22:54)
[2020-07-17] MEDS: INSULIN (LEVEMIR) 100 UNITS/ML UNITS SQ SCH (06:11)
[2020-07-17] MEDS: THIAMINE HCL 100 MG TABLET (FP) PO SCH (09:35)
[2020-07-17] MEDS: LOSARTAN POTASSIUM 50 MG TABLET PO SCH (09:35)
[2020-07-17] MEDS: levETIRAcetam 500 MG TABLET (FP) PO SCH ×2 (09:35→22:54)
[2020-07-17] MEDS: MULTIVITAMINS (DAILY MVI) TABLET (FP) PO SCH (09:35)
[2020-07-17] MEDS: LABETALOL HCL 100 MG TABLET (FP) PO SCH ×2 (09:35→22:54)
[2020-07-17 16:33] LABS: CALCIUM 8.2 mg/dL (8.5-10.1)
[2020-07-17 16:34] LABS: ALBUMIN 2.6 g/dl (3.4-5.0); BLOOD UREA NITROGEN 9.7 mg/dL (7-18)
[2020-07-17 16:37] LABS: CREATININE 0.9 mg/dL (0.55-1.3)
[2020-07-17 16:39] LABS: BILIRUBIN,TOTAL 0.6 mg/dL (0.2-1); TOT PROT 5.8 g/dl (6.4-8.2)
[2020-07-18] MEDS: METHADONE HCL 10 MG TABLET PO SCH (06:35)
[2020-07-18] MEDS: INSULIN (LEVEMIR) 100 UNITS/ML UNITS SQ SCH (06:37)
[2020-07-18] MEDS: INSULIN SLIDING SCALE (NOVOLOG) 1 VIAL SQ SCH ×4 (06:38→21:40)
[2020-07-18] MEDS: HEPARIN NA (PORCINE) 5,000 UNITS/ML 1ML VIAL SQ SCH ×2 (10:55→21:26)
[2020-07-18] MEDS: levETIRAcetam 500 MG TABLET (FP) PO SCH ×2 (10:56→21:26)
[2020-07-18] MEDS: MULTIVITAMINS (DAILY MVI) TABLET (FP) PO SCH (10:56)
[2020-07-18] MEDS: LABETALOL HCL 100 MG TABLET (FP) PO SCH ×2 (10:56→21:26)
[2020-07-18] MEDS: THIAMINE HCL 100 MG TABLET (FP) PO SCH (10:56)
[2020-07-18] MEDS: LOSARTAN POTASSIUM 50 MG TABLET PO SCH (10:56)
[2020-07-18] MEDS ORDERED: INSULIN (NOVOLOG) ASPART 100 UNITS/ML 10ML VIAL ONE (16:25)
[2020-07-19] MEDS: INSULIN (LEVEMIR) 100 UNITS/ML UNITS SQ SCH (06:26)
[2020-07-19] MEDS: METHADONE HCL 10 MG TABLET PO SCH (06:26)
[2020-07-19] MEDS: INSULIN SLIDING SCALE (NOVOLOG) 1 VIAL SQ SCH ×4 (06:27→22:45)
[2020-07-19] MEDS: THIAMINE HCL 100 MG TABLET (FP) PO SCH (10:40)
[2020-07-19] MEDS: LOSARTAN POTASSIUM 50 MG TABLET PO SCH (10:40)
[2020-07-19] MEDS: LABETALOL HCL 100 MG TABLET (FP) PO SCH ×2 (10:40→22:42)
[2020-07-19] MEDS: MULTIVITAMINS (DAILY MVI) TABLET (FP) PO SCH (10:40)
[2020-07-19] MEDS: levETIRAcetam 500 MG TABLET (FP) PO SCH ×2 (10:41→22:42)
[2020-07-19] MEDS: HEPARIN NA (PORCINE) 5,000 UNITS/ML 1ML VIAL SQ SCH ×2 (10:41→22:39)
[2020-07-20] MEDS: METHADONE HCL 10 MG TABLET PO SCH (06:11)
[2020-07-20] MEDS: INSULIN SLIDING SCALE (NOVOLOG) 1 VIAL SQ SCH ×3 (06:12→17:01)
[2020-07-20] MEDS: INSULIN (LEVEMIR) 100 UNITS/ML UNITS SQ SCH (06:13)
[2020-07-20] MEDS: levETIRAcetam 500 MG TABLET (FP) PO SCH (09:41)
[2020-07-20] MEDS: MULTIVITAMINS (DAILY MVI) TABLET (FP) PO SCH (09:41)
[2020-07-20] MEDS: HEPARIN NA (PORCINE) 5,000 UNITS/ML 1ML VIAL SQ SCH (09:41)
[2020-07-20] MEDS: THIAMINE HCL 100 MG TABLET (FP) PO SCH (09:42)
[2020-07-20] MEDS: LABETALOL HCL 100 MG TABLET (FP) PO SCH (09:42)
[2020-07-20 11:36] VITALS: BMI 23.2
[2020-07-20 14:51] VITALS: BP 148/90; PULSE 98; TEMP 98.2
== END 2020-07-20 21:25 | DRG 637 ==
LOC: JER 12:03 → JERBED 16:26 → JICU 17:41 → J6S 07-09 18:21
PROVIDERS: ADMIT Internal Medicine; ATTEND Internal Medicine
PROC: HZ91ZZZ Pharmacotherapy for Substance Abuse Treatment, Methadone Maintenance (ICD-10-PCS; principal; 2020-07-07)
DX: E11.10 Type 2 diabetes mellitus with ketoacidosis without coma (principal); G93.41 Metabolic encephalopathy; G92 Toxic encephalopathy; N17.9 Acute kidney failure, unspecified; E87.2 Acidosis; E87.0 Hyperosmolality and hypernatremia; F11.20 Opioid dependence, uncomplicated; E11.649 Type 2 diabetes mellitus with hypoglycemia without coma; E11.65 Type 2 diabetes mellitus with hyperglycemia; I10 Essential (primary) hypertension; G40.909 Epilepsy, unspecified, not intractable, without status epilepticus; B19.20 Unspecified viral hepatitis C without hepatic coma; E87.5 Hyperkalemia; E87.6 Hypokalemia; G62.9 Polyneuropathy, unspecified; E83.39 Other disorders of phosphorus metabolism; E11.40 Type 2 diabetes mellitus with diabetic neuropathy, unspecified; E11.43 Type 2 diabetes mellitus with diabetic autonomic (poly)neuropathy; I95.9 Hypotension, unspecified; D64.9 Anemia, unspecified; E78.5 Hyperlipidemia, unspecified
CPT/HCPCS: 36415; 36600; 71045-TC-FY; 76775-TC; 80048; 80053; 80307; 81003; 82010; 82436; 82550; 82565; 82803; 82947; 82962; 83036; 83605; 83735; 84100; 84133; 84300; 84484; 85025; 85027; 85610; 85730; 86850; 86900; 86901; 87040; 87086; 93005; 93010; 97116-GP; 97162-GP; 99291; C9803; J1644; J3480; U0003

== ENCOUNTER 2021-01-06 13:49 | Inpatient (IN) | payer OTHER ==
[2021-01-06] MEDS ORDERED: LABETALOL HCL 100 MG TABLET (FP) PO ONE (15:23)
[2021-01-06] MEDS ORDERED: LABETALOL HCL 100 MG TABLET (FP) ONE (15:42)
[2021-01-06 15:51] LABS: BASO % 0.7 % (0-2.0); EOS % 0.8 % (0-4.5); HEMOGLOBIN 10.1 GM/dL (11.7-16.9); LYMPH % 29.6 % (8-40); MCH 24.4 pg (25.7-33.7); MCHC 31.6 g/dl (32.0-35.9); MEAN CELL VOLUME 77.2 fl (80-96); MEAN PLT VOLUME 9.2 fl (7.5-11.1); MONO % 7.1 % (3.8-10.2); NEUT % 61.8 % (42.8-82.8); PLATELET COUNT 247 K/MM3 (134-434); RBC 4.15 M/mm3 (4.00-5.60); RDW 19.7 % (11.9-15.9)
[2021-01-06 17:09] LABS: CHLORIDE 105 mmol/L (98-107); SODIUM 137 mmol/L (136-145)
[2021-01-06 17:11] LABS: CALCIUM 8.3 mg/dL (8.5-10.1)
[2021-01-06 17:12] LABS: ALBUMIN 3.6 g/dl (3.4-5.0); CO2 27 mmol/L (21-32); GLUCOSE,RANDOM 82 mg/dL (74-106)
[2021-01-06 17:15] LABS: BLOOD UREA NITROGEN 11.9 mg/dL (7-18); SGOT/AST 75 U/L (15-37); SGPT/ALT 23 U/L (13-61)
[2021-01-06 17:16] LABS: BILIRUBIN,TOTAL 0.4 mg/dL (0.2-1)
[2021-01-06 17:17] LABS: TOT PROT 8.3 g/dl (6.4-8.2)
[2021-01-06 17:18] LABS: ALK PHOS 95 U/L (45-117)
[2021-01-06 17:25] LABS: ANION GAP 5 MMOL/L (8-16)
[2021-01-06] MEDS ORDERED: DEXTROSE 50%-WATER - 25 GM/50 ML VIAL IVPUSH ONE (18:05)
[2021-01-06] MEDS ORDERED: DEXTROSE 50%-WATER 25 GM/50 ML DISP.SYRIN ONE (18:05)
[2021-01-06] MEDS ORDERED: LABETALOL HCL 5 MG/1 ML (100MG/20 ML VIAL) IVPUSH ONE (18:28)
[2021-01-06] MEDS ORDERED: LABETALOL HCL 5 MG/1 ML (100MG/20 ML VIAL) ONE (18:44)
[2021-01-06] MEDS: INSULIN SLIDING SCALE (NOVOLOG) 1 VIAL SQ SCH (23:07)
[2021-01-06] MEDS ORDERED: INSULIN SLIDING SCALE (NOVOLOG) 1 VIAL SQ ONE (23:10)
[2021-01-07] MEDS: INSULIN SLIDING SCALE (NOVOLOG) 1 VIAL SQ SCH ×4 (07:04→22:31)
[2021-01-07 07:26] LABS: BASO % 0.5 % (0-2.0); EOS % 1.2 % (0-4.5); HEMATOCRIT 32.8 % (35.4-49); HEMOGLOBIN 10.4 GM/dL (11.7-16.9); MCH 24.4 pg (25.7-33.7); MCHC 31.8 g/dl (32.0-35.9); MEAN CELL VOLUME 76.8 fl (80-96); MEAN PLT VOLUME 8.9 fl (7.5-11.1); MONO % 10.3 % (3.8-10.2); PLATELET COUNT 235 K/MM3 (134-434); RBC 4.27 M/mm3 (4.00-5.60); RDW 19.4 % (11.9-15.9); WHITE BLOOD COUNT 5.7 K/mm3 (4.0-10.0)
[2021-01-07 07:52] LABS: CHLORIDE 108 mmol/L (98-107); SODIUM 140 mmol/L (136-145)
[2021-01-07 08:00] LABS: CALCIUM 8.7 mg/dL (8.5-10.1); SGPT/ALT 17 U/L (13-61)
[2021-01-07 08:01] LABS: ALBUMIN 3.5 g/dl (3.4-5.0); ANION GAP 7 MMOL/L (8-16); BLOOD UREA NITROGEN 11.1 mg/dL (7-18); CO2 25 mmol/L (21-32); SGOT/AST 18 U/L (15-37)
[2021-01-07 08:02] LABS: BILIRUBIN,TOTAL 0.7 mg/dL (0.2-1); TOT PROT 7.8 g/dl (6.4-8.2)
[2021-01-07 08:03] LABS: ALK PHOS 91 U/L (45-117); CREATININE 0.9 mg/dL (0.55-1.3)
[2021-01-07 08:04] LABS: GLUCOSE,RANDOM 37 mg/dL (74-106)
[2021-01-07] MEDS ORDERED: [UNRECOGNIZED DRUG - OTHER] PO SCH (10:00)
[2021-01-07] MEDS ORDERED: RANOLAZINE E.R. 500 MG TABLET (FP) PO SCH (10:00)
[2021-01-07] MEDS ORDERED: levETIRAcetam 500 MG TABLET (FP) PO SCH (10:00)
[2021-01-07] MEDS ORDERED: METHADONE HCL PO SCH (10:00)
[2021-01-07] MEDS ORDERED: LABETALOL HCL 100 MG TABLET (FP) ONE (11:05)
[2021-01-07] MEDS ORDERED: ENOXAPARIN NA (PORCINE) 40 MG/0.4 ML DISP.SYRIN SQ ONE (11:05)
[2021-01-07] MEDS ORDERED: LOSARTAN POTASSIUM 50 MG TABLET ONE (11:05)
[2021-01-07] MEDS ORDERED: ASPIRIN 81 MG CHEWABLE TABLETS ONE (11:05)
[2021-01-07] MEDS ORDERED: OLANZapine 10 MG TABLET ONE (11:05)
[2021-01-07] MEDS: OLANZapine 5 MG TABLET PO SCH (11:07)
[2021-01-07] MEDS: ASPIRIN 81 MG CHEWABLE TABLETS PO SCH (11:07)
[2021-01-07] MEDS: LOSARTAN POTASSIUM 50 MG TABLET PO SCH (11:07)
[2021-01-07] MEDS: ENOXAPARIN NA (PORCINE) 40 MG/0.4 ML DISP.SYRIN SQ SCH (11:07)
[2021-01-07] MEDS: LABETALOL HCL 100 MG TABLET (FP) PO SCH (11:07)
[2021-01-07] MEDS ORDERED: CLOPIDOGREL BISULFATE 75 MG TABLET (FP) ONE (17:21)
[2021-01-07] MEDS: CLOPIDOGREL BISULFATE 75 MG TABLET (FP) PO SCH (17:47)
[2021-01-07] MEDS: hydrALAZINE HCL 10 MG TABLET PO SCH ×2 (17:47→22:29)
[2021-01-07] MEDS: ROSUVASTATIN CA 5 MG TABLET (FP) PO SCH (22:29)
[2021-01-08] MEDS: INSULIN SLIDING SCALE (NOVOLOG) 1 VIAL SQ SCH ×5 (06:18→21:03)
[2021-01-08] MEDS ORDERED: PT OWN MED DRAWER 7, Y5N ONE (07:00)
[2021-01-08 08:03] LABS: CHOLESTEROL 108 mg/dL (50-200); TRIGLYCERIDES 57 mg/dL (0-150)
[2021-01-08 08:04] LABS: LDL CHOLESTEROL (ONLY SJRH) 44 mg/dL (5-100)
[2021-01-08 08:06] LABS: HDL CHOLESTEROL 57 mg/dL (40-60)
[2021-01-08] MEDS: RANOLAZINE E.R. 500 MG TABLET (FP) PO SCH ×2 (09:12→22:09)
[2021-01-08] MEDS: LABETALOL HCL 100 MG TABLET (FP) PO SCH (09:12)
[2021-01-08] MEDS: ENOXAPARIN NA (PORCINE) 40 MG/0.4 ML DISP.SYRIN SQ SCH (09:12)
[2021-01-08] MEDS: ASPIRIN 81 MG CHEWABLE TABLETS PO SCH (09:13)
[2021-01-08] MEDS: LOSARTAN POTASSIUM 50 MG TABLET PO SCH (09:13)
[2021-01-08] MEDS: METHADONE HCL 10 MG TABLET PO SCH (09:13)
[2021-01-08] MEDS: hydrALAZINE HCL 10 MG TABLET PO SCH ×2 (09:13→22:08)
[2021-01-08] MEDS: CLOPIDOGREL BISULFATE 75 MG TABLET (FP) PO SCH (09:14)
[2021-01-08] MEDS: levETIRAcetam 500 MG TABLET (FP) PO SCH ×2 (09:14→22:09)
[2021-01-08] MEDS: OLANZapine 5 MG TABLET PO SCH (09:14)
[2021-01-08] MEDS: ROSUVASTATIN CA 5 MG TABLET (FP) PO SCH (22:08)
[2021-01-08] MEDS: INSULIN (LEVEMIR) 100 UNITS/ML UNITS SQ SCH (22:15)
[2021-01-09] MEDS: METHADONE HCL 10 MG TABLET PO SCH (06:04)
[2021-01-09] MEDS: INSULIN SLIDING SCALE (NOVOLOG) 1 VIAL SQ SCH ×4 (06:04→21:50)
[2021-01-09 07:09] LABS: BASO % 0.8 % (0-2.0); EOS % 1.4 % (0-4.5); HEMATOCRIT 31.6 % (35.4-49); HEMOGLOBIN 10.4 GM/dL (11.7-16.9); LYMPH % 26.4 % (8-40); MCH 25.3 pg (25.7-33.7); MEAN CELL VOLUME 76.7 fl (80-96); MEAN PLT VOLUME 8.8 fl (7.5-11.1); MONO % 7.1 % (3.8-10.2); NEUT % 64.3 % (42.8-82.8); PLATELET COUNT 221 K/MM3 (134-434); RBC 4.12 M/mm3 (4.00-5.60); RDW 19.5 % (11.9-15.9); WHITE BLOOD COUNT 6.4 K/mm3 (4.0-10.0)
[2021-01-09 07:24] LABS: CALCIUM 8.3 mg/dL (8.5-10.1)
[2021-01-09 07:25] LABS: ALBUMIN 3.4 g/dl (3.4-5.0); BLOOD UREA NITROGEN 21.4 mg/dL (7-18)
[2021-01-09 07:28] LABS: CREATININE 1.3 mg/dL (0.55-1.3)
[2021-01-09 07:29] LABS: BILIRUBIN,TOTAL 0.7 mg/dL (0.2-1)
[2021-01-09 07:30] LABS: TOT PROT 7.4 g/dl (6.4-8.2)
[2021-01-09] MEDS: hydrALAZINE HCL 10 MG TABLET PO SCH (09:16)
[2021-01-09] MEDS: CLOPIDOGREL BISULFATE 75 MG TABLET (FP) PO SCH (09:16)
[2021-01-09] MEDS: ENOXAPARIN NA (PORCINE) 40 MG/0.4 ML DISP.SYRIN SQ SCH (09:16)
[2021-01-09] MEDS: ASPIRIN 81 MG CHEWABLE TABLETS PO SCH (09:16)
[2021-01-09] MEDS: OLANZapine 5 MG TABLET PO SCH (09:16)
[2021-01-09] MEDS: levETIRAcetam 500 MG TABLET (FP) PO SCH ×2 (09:16→21:48)
[2021-01-09] MEDS: RANOLAZINE E.R. 500 MG TABLET (FP) PO SCH ×2 (09:16→21:49)
[2021-01-09] MEDS: LOSARTAN POTASSIUM 50 MG TABLET PO SCH (09:16)
[2021-01-09] MEDS: LABETALOL HCL 100 MG TABLET (FP) PO SCH (09:17)
[2021-01-09] MEDS ORDERED: hydrALAZINE HCL 25 MG TABLET (FP) PO SCH (11:05)
[2021-01-09] MEDS: INSULIN (LEVEMIR) 100 UNITS/ML UNITS SQ SCH (21:49)
[2021-01-09] MEDS: ROSUVASTATIN CA 5 MG TABLET (FP) PO SCH (21:49)
[2021-01-09] MEDS ORDERED: LABETALOL HCL 100 MG TABLET (FP) PO SCH (22:00)
[2021-01-10] MEDS: METHADONE HCL 10 MG TABLET PO SCH (06:11)
[2021-01-10] MEDS: INSULIN SLIDING SCALE (NOVOLOG) 1 VIAL SQ SCH ×4 (06:11→22:01)
[2021-01-10 07:12] LABS: BASO % 1.1 % (0-2.0); EOS % 1.6 % (0-4.5); HEMATOCRIT 31.8 % (35.4-49); HEMOGLOBIN 10.4 GM/dL (11.7-16.9); LYMPH % 32.6 % (8-40); MCH 25.2 pg (25.7-33.7); MCHC 32.8 g/dl (32.0-35.9); MEAN CELL VOLUME 76.8 fl (80-96); MEAN PLT VOLUME 8.8 fl (7.5-11.1); MONO % 10.1 % (3.8-10.2); NEUT % 54.6 % (42.8-82.8); PLATELET COUNT 217 K/MM3 (134-434); RBC 4.15 M/mm3 (4.00-5.60); RDW 19.5 % (11.9-15.9); WHITE BLOOD COUNT 6.5 K/mm3 (4.0-10.0)
[2021-01-10 07:45] LABS: ALBUMIN 3.3 g/dl (3.4-5.0); BILIRUBIN,TOTAL 0.4 mg/dL (0.2-1); CALCIUM 8.6 mg/dL (8.5-10.1); CREATININE 1.2 mg/dL (0.55-1.3); TOT PROT 7.3 g/dl (6.4-8.2)
[2021-01-10] MEDS: ENOXAPARIN NA (PORCINE) 40 MG/0.4 ML DISP.SYRIN SQ SCH (09:16)
[2021-01-10] MEDS: RANOLAZINE E.R. 500 MG TABLET (FP) PO SCH ×2 (09:16→22:00)
[2021-01-10] MEDS: levETIRAcetam 500 MG TABLET (FP) PO SCH ×2 (09:17→22:00)
[2021-01-10] MEDS: ASPIRIN 81 MG CHEWABLE TABLETS PO SCH (09:17)
[2021-01-10] MEDS: LABETALOL HCL 200 MG TABLET (FP) PO SCH ×2 (09:17→22:00)
[2021-01-10] MEDS: CLOPIDOGREL BISULFATE 75 MG TABLET (FP) PO SCH (09:17)
[2021-01-10] MEDS: LOSARTAN POTASSIUM 50 MG TABLET PO SCH (09:17)
[2021-01-10] MEDS: OLANZapine 5 MG TABLET PO SCH (09:23)
[2021-01-10] MEDS ORDERED: hydrALAZINE HCL 50 MG TABLET (FP) PO SCH (10:00)
[2021-01-10 12:31] VITALS: BMI 21.9
[2021-01-10] MEDS: hydrALAZINE HCL 50 MG TABLET (FP) PO SCH ×2 (13:14→22:00)
[2021-01-10] MEDS: INSULIN (LEVEMIR) 100 UNITS/ML UNITS SQ SCH (22:00)
[2021-01-10] MEDS: ROSUVASTATIN CA 5 MG TABLET (FP) PO SCH (22:00)
[2021-01-11] MEDS: INSULIN SLIDING SCALE (NOVOLOG) 1 VIAL SQ SCH ×2 (06:26→11:31)
[2021-01-11] MEDS: METHADONE HCL 10 MG TABLET PO SCH (06:26)
[2021-01-11] MEDS: hydrALAZINE HCL 50 MG TABLET (FP) PO SCH ×2 (06:26→13:55)
[2021-01-11] MEDS ORDERED: AMINO ACIDS/PROTEIN HYDROLYS 30 ML LIQUID.PKT PO SCH (08:00)
[2021-01-11] MEDS: ASPIRIN 81 MG CHEWABLE TABLETS PO SCH (09:56)
[2021-01-11] MEDS: LABETALOL HCL 200 MG TABLET (FP) PO SCH (09:56)
[2021-01-11] MEDS: RANOLAZINE E.R. 500 MG TABLET (FP) PO SCH (09:56)
[2021-01-11] MEDS: OLANZapine 5 MG TABLET PO SCH (09:56)
[2021-01-11] MEDS: ENOXAPARIN NA (PORCINE) 40 MG/0.4 ML DISP.SYRIN SQ SCH (09:56)
[2021-01-11] MEDS: CLOPIDOGREL BISULFATE 75 MG TABLET (FP) PO SCH (09:56)
[2021-01-11] MEDS: levETIRAcetam 500 MG TABLET (FP) PO SCH (09:56)
[2021-01-11] MEDS: LOSARTAN POTASSIUM 50 MG TABLET PO SCH (09:57)
[2021-01-11] MEDS ORDERED: MULTIVITAMINS THER W-MINERALS COMBO TABLET (FP) PO SCH (10:00)
[2021-01-11 14:07] VITALS: BP 125/77; PULSE 79; TEMP 97.7
== END 2021-01-11 16:57 | disposition home or self-care (01) | DRG 65 ==
LOC: JER 13:49 → JERBED 17:08 → J4S 01-07 21:22
PROVIDERS: ADMIT Internal Medicine; ATTEND Internal Medicine
DX: I63.9 Cerebral infarction, unspecified (principal); F11.20 Opioid dependence, uncomplicated; R29.701 NIHSS score 1; E11.9 Type 2 diabetes mellitus without complications; I10 Essential (primary) hypertension; E78.5 Hyperlipidemia, unspecified; I25.10 Atherosclerotic heart disease of native coronary artery without angina pectoris; F17.210 Nicotine dependence, cigarettes, uncomplicated; R07.89 Other chest pain; R51.9 Headache, unspecified; B19.20 Unspecified viral hepatitis C without hepatic coma; D64.9 Anemia, unspecified; G40.909 Epilepsy, unspecified, not intractable, without status epilepticus
CPT/HCPCS: 36415; 70450-TC; 70551-TC; 71045-TC-FY; 80053; 80061; 82962; 83036; 83721; 84132; 84484; 85025; 93005; 93010; 93306-TC; 93880-TC; 97116-GP; 97161-GP; 99285-25; C9803; U0003; U0005

== ENCOUNTER 2021-02-08 08:39 | Observation (INO) | payer OTHER ==
[2021-02-08] MEDS ORDERED: SODIUM CHLORIDE 0.9% 500 ML INFUS.BAG IV ONE (09:16)
[2021-02-08] MEDS ORDERED: hydrALAZINE HCL 50 MG TABLET (FP) PO ONE (09:22)
[2021-02-08] MEDS ORDERED: LOSARTAN POTASSIUM 50 MG TABLET PO ONE (09:22)
[2021-02-08] MEDS ORDERED: LABETALOL HCL 200 MG TABLET (FP) PO ONE (09:22)
[2021-02-08 09:50] LABS: HEMATOCRIT 35.3 % (35.4-49); MCH 23.8 pg (25.7-33.7); MCHC 31.2 g/dl (32.0-35.9); MEAN CELL VOLUME 76.1 fl (80-96); MEAN PLT VOLUME 8.7 fl (7.5-11.1); PLATELET COUNT 201 10^3/uL (134-434); RBC 4.63 M/mm3 (4.00-5.60); RDW 19.4 % (11.9-15.9); WHITE BLOOD COUNT 6.3 K/mm3 (4.0-10.0)
[2021-02-08] MEDS ORDERED: LABETALOL HCL 100 MG TABLET (FP) ONE (09:57)
[2021-02-08 09:58] LABS: ARTERIAL BLD GAS O2 SATURATION 97.3 mmHg (95-98); ARTERIAL BLOOD GAS BASE EXCESS -1.5 mmol/L (-2-2); ARTERIAL BLOOD GAS PO2 98.4 mmHg (80-100); ARTERIAL BLOOD GAS pH 7.374 (7.350-7.450)
[2021-02-08] MEDS ORDERED: LOSARTAN POTASSIUM 50 MG TABLET ONE (09:58)
[2021-02-08] MEDS ORDERED: hydrALAZINE HCL 25 MG TABLET (FP) ONE (09:58)
[2021-02-08 10:07] LABS: CHLORIDE 107 mmol/L (98-107); SODIUM 138 mmol/L (136-145)
[2021-02-08 10:09] LABS: ANION GAP 7 MMOL/L (8-16); BLOOD UREA NITROGEN 14.8 mg/dL (7-18); CALCIUM 8.7 mg/dL (8.5-10.1); CO2 24 mmol/L (21-32); GLUCOSE,RANDOM 124 mg/dL (74-106)
[2021-02-08 10:10] LABS: ALBUMIN 3.9 g/dl (3.4-5.0)
[2021-02-08 10:13] LABS: SGOT/AST 37 U/L (15-37); SGPT/ALT 39 U/L (13-61)
[2021-02-08 10:14] LABS: BILIRUBIN,TOTAL 0.4 mg/dL (0.2-1); TOT PROT 8.1 g/dl (6.4-8.2)
[2021-02-08 10:15] LABS: ALK PHOS 87 U/L (45-117)
[2021-02-08 15:02] LABS: PH,URINE 7.5 (5.0-8.0); URINE APPEARANCE CLEAR; URINE BILIRUBIN NEGATIVE (NEGATIVE); URINE COLOR YELLOW; URINE GLUCOSE (UA) TRACE (NEGATIVE); URINE KETONE NEGATIVE (NEGATIVE); URINE LEUK ESTERASE NEGATIVE (NEGATIVE); URINE NITRITE NEGATIVE (NEGATIVE); URINE PROTEIN TRACE (NEGATIVE)
[2021-02-08 15:10] LABS: OPIATES, URI NEGATIVE (NEGATIVE); PHENCYCLIDINE,URINE NEGATIVE (NEGATIVE)
[2021-02-08 15:11] LABS: COCAINE, UR NEGATIVE (NEGATIVE); METHADONE, UR POSITIVE (NEGATIVE); URINE AMPHETAMINES NEGATIVE (NEGATIVE); URINE BARBITURATES NEGATIVE (NEGATIVE); URINE BENZODIAZEPINES NEGATIVE (NEGATIVE)
[2021-02-08 18:45] VITALS: BMI 27.5
[2021-02-08] MEDS ORDERED: ACETAMINOPHEN 325 MG TABLET (FP) PO PRN (20:56)
[2021-02-08] MEDS ORDERED: ONDANSETRON 4 MG/2 ML VIAL IVPUSH PRN (20:57)
[2021-02-08] MEDS ORDERED: ALPRAZolam 0.25 MG TABLET PO ONE (20:57)
[2021-02-08] MEDS: RANOLAZINE E.R. 500 MG TABLET (FP) PO SCH (21:18)
[2021-02-08] MEDS: levETIRAcetam 500 MG TABLET (FP) PO SCH (21:18)
[2021-02-08] MEDS: LABETALOL HCL 100 MG TABLET (FP) PO SCH (21:18)
[2021-02-08] MEDS: hydrALAZINE HCL 50 MG TABLET (FP) PO SCH (21:18)
[2021-02-08] MEDS: ROSUVASTATIN CA 5 MG TABLET (FP) PO SCH (21:18)
[2021-02-08] MEDS: INSULIN SLIDING SCALE (NOVOLOG) 1 VIAL SQ SCH (22:50)
[2021-02-09] MEDS: METHADONE HCL 10 MG TABLET PO SCH (06:27)
[2021-02-09] MEDS: hydrALAZINE HCL 50 MG TABLET (FP) PO SCH ×3 (06:27→21:41)
[2021-02-09] MEDS: INSULIN SLIDING SCALE (NOVOLOG) 1 VIAL SQ SCH ×4 (06:36→21:42)
[2021-02-09 06:55] LABS: BASO % 0.8 % (0-2.0); HEMATOCRIT 31.2 % (35.4-49); LYMPH % 43.4 % (8-40); MCH 24.1 pg (25.7-33.7); MCHC 32.1 g/dl (32.0-35.9); MEAN CELL VOLUME 75.2 fl (80-96); MEAN PLT VOLUME 8.6 fl (7.5-11.1); MONO % 9.2 % (3.8-10.2); NEUT % 44.6 % (42.8-82.8); PLATELET COUNT 170 10^3/uL (134-434); RBC 4.14 M/mm3 (4.00-5.60); RDW 18.9 % (11.9-15.9); WHITE BLOOD COUNT 5.3 K/mm3 (4.0-10.0)
[2021-02-09 07:17] LABS: CALCIUM 8.4 mg/dL (8.5-10.1)
[2021-02-09 07:18] LABS: ALBUMIN 3.3 g/dl (3.4-5.0); BLOOD UREA NITROGEN 17.2 mg/dL (7-18)
[2021-02-09 07:22] LABS: BILIRUBIN,TOTAL 0.6 mg/dL (0.2-1)
[2021-02-09] MEDS: LOSARTAN POTASSIUM 50 MG TABLET PO SCH (11:35)
[2021-02-09] MEDS: LABETALOL HCL 100 MG TABLET (FP) PO SCH ×2 (11:35→21:41)
[2021-02-09] MEDS: CLOPIDOGREL BISULFATE 75 MG TABLET (FP) PO SCH (11:35)
[2021-02-09] MEDS: RANOLAZINE E.R. 500 MG TABLET (FP) PO SCH ×2 (11:35→21:37)
[2021-02-09] MEDS: levETIRAcetam 500 MG TABLET (FP) PO SCH ×2 (11:35→21:37)
[2021-02-09] MEDS: ASPIRIN 81 MG CHEWABLE TABLETS PO SCH (11:35)
[2021-02-09] MEDS ORDERED: INSULIN (NOVOLOG) ASPART 100 UNITS/ML 10ML VIAL ONE (12:47)
[2021-02-09] MEDS: ROSUVASTATIN CA 5 MG TABLET (FP) PO SCH (21:37)
[2021-02-10] MEDS: METHADONE HCL 10 MG TABLET PO SCH (05:55)
[2021-02-10] MEDS: hydrALAZINE HCL 50 MG TABLET (FP) PO SCH ×2 (05:55→13:09)
[2021-02-10] MEDS ORDERED: INSULIN (LEVEMIR) 100 UNITS/ML UNITS SQ SCH (07:00)
[2021-02-10] MEDS: INSULIN SLIDING SCALE (NOVOLOG) 1 VIAL SQ SCH ×2 (07:05→11:35)
[2021-02-10 10:06] VITALS: TEMP 98.5
[2021-02-10] MEDS: LABETALOL HCL 100 MG TABLET (FP) PO SCH (10:20)
[2021-02-10] MEDS: CLOPIDOGREL BISULFATE 75 MG TABLET (FP) PO SCH (10:20)
[2021-02-10] MEDS: ASPIRIN 81 MG CHEWABLE TABLETS PO SCH (10:20)
[2021-02-10] MEDS: RANOLAZINE E.R. 500 MG TABLET (FP) PO SCH (10:20)
[2021-02-10] MEDS: LOSARTAN POTASSIUM 50 MG TABLET PO SCH (10:20)
[2021-02-10] MEDS: levETIRAcetam 500 MG TABLET (FP) PO SCH (10:20)
[2021-02-10 11:38] VITALS: PULSE 70
[2021-02-10 12:52] VITALS: BP 155/98
== END 2021-02-10 13:49 | disposition home or self-care (01) ==
LOC: JER 08:39 → INTOOBSV 13:11 → UNDOADMOB 13:11 → JERBED 13:11 → J4W 18:10 → JERBED 18:10 → J4W 02-09 09:57
PROVIDERS: ADMIT Internal Medicine; ATTEND Internal Medicine
PROC: 3E013GC Introduction of Other Therapeutic Substance into Subcutaneous Tissue, Percutaneous Approach (ICD-10-PCS; principal; 2021-02-09)
DX: E11.649 Type 2 diabetes mellitus with hypoglycemia without coma (principal); R55 Syncope and collapse; R40.4 Transient alteration of awareness; Z79.4 Long term (current) use of insulin; F11.20 Opioid dependence, uncomplicated; I10 Essential (primary) hypertension; E78.5 Hyperlipidemia, unspecified; G40.909 Epilepsy, unspecified, not intractable, without status epilepticus; B18.2 Chronic viral hepatitis C; I25.10 Atherosclerotic heart disease of native coronary artery without angina pectoris; F17.210 Nicotine dependence, cigarettes, uncomplicated; Z79.82 Long term (current) use of aspirin; G62.9 Polyneuropathy, unspecified; N17.9 Acute kidney failure, unspecified; I63.9 Cerebral infarction, unspecified
CPT/HCPCS: 36415; 36600; 70450-TC; 71045-TC-FY; 80053; 80307; 81003; 82010; 82550; 82553; 82803; 82962; 84484; 85025; 85027; 87086; 93005; 93010; 96372; 99285-25; C9803; G0378; U0003; U0005

== ENCOUNTER 2021-09-22 11:12 | Inpatient (IN) | payer OTHER ==
[2021-09-22] MEDS ORDERED: SODIUM CHLORIDE 0.9% 500 ML INFUS.BAG IV ONE ×2 (11:27→12:23)
[2021-09-22 11:44] VITALS: BMI 25.2
[2021-09-22 12:11] LABS: VENOUS BASE EXCESS -13.5 mmol/L (-2-2); VENOUS O2 SATURATION 78.5 % (70-80); VENOUS PCO2 28.6 mmHg (38-52); VENOUS PH 7.253 (7.310-7.410)
[2021-09-22 12:14] LABS: BASO % 0.7 % (0-2.0); HEMATOCRIT 30.8 % (35.4-49); HEMOGLOBIN 9.3 GM/dL (11.7-16.9); LYMPH % 12.8 % (8-40); MCH 24.9 pg (25.7-33.7); MCHC 30.3 g/dl (32.0-35.9); MEAN CELL VOLUME 82.5 fl (80-96); MEAN PLT VOLUME 9.7 fl (7.5-11.1); MONO % 5.8 % (3.8-10.2); NEUT % 80.7 % (42.8-82.8); PLATELET COUNT 198 10^3/uL (134-434); RBC 3.74 M/mm3 (4.00-5.60); RDW 19.9 % (11.9-15.9); WHITE BLOOD COUNT 6.1 K/mm3 (4.0-10.0)
[2021-09-22 12:20] LABS: INR 0.96 (0.83-1.09)
[2021-09-22 12:23] LABS: ACTIVATED PTT 27.4 SECONDS (25.2-36.5)
[2021-09-22 12:33] LABS: ALBUMIN 3.3 g/dl (3.4-5.0); CALCIUM 8.5 mg/dL (8.5-10.1)
[2021-09-22 12:34] LABS: BLOOD UREA NITROGEN 36.8 mg/dL (7-18)
[2021-09-22 12:37] LABS: CREATININE 2.1 mg/dL (0.55-1.3)
[2021-09-22 12:38] LABS: BILIRUBIN,TOTAL 0.6 mg/dL (0.2-1)
[2021-09-22] MEDS ORDERED: INSULIN REGULAR 100 UNITS in SODIUM CHLORIDE 99 ML IVPB SCH (13:30)
[2021-09-22] MEDS ORDERED: KCL 10 MEQ IVPB 10 MEQ/100 ML INFUS.BAG IVPB ONE (14:15)
[2021-09-22] MEDS ORDERED: LACTATED RINGERS SOLUTION 1000 ML INFUS.BAG IV ONE (14:19)
[2021-09-22] MEDS: KCL 10 MEQ IVPB 10 MEQ/100 ML INFUS.BAG IVPB SCH ×2 (15:01→19:37)
[2021-09-22] MEDS ORDERED: DEXTROSE 50%-WATER - 25 GM/50 ML VIAL IVPUSH ONE (16:10)
[2021-09-22 16:16] LABS: URINE APPEARANCE CLEAR; URINE BILIRUBIN NEGATIVE (NEGATIVE); URINE COLOR YELLOW; URINE GLUCOSE (UA) 3+ (NEGATIVE); URINE KETONE 1+ (NEGATIVE); URINE LEUK ESTERASE NEGATIVE (NEGATIVE); URINE NITRITE NEGATIVE (NEGATIVE); URINE PROTEIN NEGATIVE (NEGATIVE); URINE UROBILINOGEN 0.2 mg/dL (0.2-1.0)
[2021-09-22 18:10] LABS: CHLORIDE 109 mmol/L (98-107); SODIUM 142 mmol/L (136-145)
[2021-09-22 18:12] LABS: CALCIUM 8.2 mg/dL (8.5-10.1)
[2021-09-22 18:13] LABS: ALBUMIN 2.9 g/dl (3.4-5.0); ANION GAP 7 MMOL/L (8-16); BLOOD UREA NITROGEN 29.9 mg/dL (7-18); CO2 25 mmol/L (21-32)
[2021-09-22 18:15] LABS: CREATININE 1.5 mg/dL (0.55-1.3); SGOT/AST 18 U/L (15-37)
[2021-09-22 18:16] LABS: SGPT/ALT 16 U/L (13-61)
[2021-09-22 18:17] LABS: BILIRUBIN,TOTAL 0.4 mg/dL (0.2-1); TOT PROT 6.2 g/dl (6.4-8.2)
[2021-09-22 18:18] LABS: ALK PHOS 93 U/L (45-117)
[2021-09-22 19:25] LABS: GLUCOSE,RANDOM 39 mg/dL (74-106)
[2021-09-22 19:43] LABS: VENOUS BASE EXCESS -1.9 mmol/L (-2-2); VENOUS O2 SATURATION 72.2 % (70-80); VENOUS PCO2 42.4 mmHg (38-52); VENOUS PH 7.36 (7.310-7.410)
[2021-09-22 20:03] LABS: CALCIUM 8.2 mg/dL (8.5-10.1)
[2021-09-22 20:04] LABS: BLOOD UREA NITROGEN 27.9 mg/dL (7-18)
[2021-09-22 20:07] LABS: CREATININE 1.4 mg/dL (0.55-1.3)
[2021-09-22] MEDS ORDERED: CHLORHEXIDINE GLUCONATE 4% CLEANSER FOR DECOLONIZATION TP SCH (22:00)
[2021-09-22] MEDS ORDERED: MUPIROCIN 2% TOPICAL OINTMENT FOR DECOLONIZATION NS SCH (22:00)
[2021-09-23] MEDS: SODIUM CHLORIDE 0.45% 1,000 ML IV SCH (02:20)
[2021-09-23] MEDS: hydrALAZINE HCL 50 MG TABLET (FP) PO SCH ×3 (06:07→22:07)
[2021-09-23] MEDS: INSULIN SLIDING SCALE (NOVOLOG) 1 VIAL SQ SCH ×4 (06:08→22:08)
[2021-09-23] MEDS: HEPARIN NA (PORCINE) 5,000 UNITS/ML 1ML VIAL SQ SCH ×2 (09:54→22:07)
[2021-09-23] MEDS: RANOLAZINE E.R. 500 MG TABLET (FP) PO SCH ×2 (09:54→22:07)
[2021-09-23] MEDS: CLOPIDOGREL BISULFATE 75 MG TABLET (FP) PO SCH (09:54)
[2021-09-23] MEDS: OLANZapine 5 MG TABLET PO SCH (09:54)
[2021-09-23] MEDS: ASPIRIN 81 MG CHEWABLE TABLETS PO SCH (09:54)
[2021-09-23] MEDS: LOSARTAN POTASSIUM 50 MG TABLET PO SCH (09:54)
[2021-09-23] MEDS: levETIRAcetam 500 MG TABLET (FP) PO SCH ×2 (09:54→22:07)
[2021-09-23 11:30] LABS: ALBUMIN 2.7 g/dl (3.4-5.0); CALCIUM 8.5 mg/dL (8.5-10.1)
[2021-09-23 11:31] LABS: BLOOD UREA NITROGEN 28.7 mg/dL (7-18)
[2021-09-23 11:33] LABS: CREATININE 1.7 mg/dL (0.55-1.3)
[2021-09-23 11:35] LABS: BASO % 0.8 % (0-2.0); BILIRUBIN,TOTAL 0.6 mg/dL (0.2-1); EOS % 0.1 % (0-4.5); HEMATOCRIT 28.3 % (35.4-49); LYMPH % 14.2 % (8-40); MCH 25.6 pg (25.7-33.7); MCHC 31.8 g/dl (32.0-35.9); MEAN CELL VOLUME 80.4 fl (80-96); MEAN PLT VOLUME 9.7 fl (7.5-11.1); MONO % 8.1 % (3.8-10.2); NEUT % 76.8 % (42.8-82.8); PLATELET COUNT 200 10^3/uL (134-434); RBC 3.52 M/mm3 (4.00-5.60); RDW 19.8 % (11.9-15.9); TOT PROT 6.1 g/dl (6.4-8.2); WHITE BLOOD COUNT 6.7 K/mm3 (4.0-10.0)
[2021-09-23] MEDS: ROSUVASTATIN CA 5 MG TABLET PO SCH (22:07)
[2021-09-24] MEDS: hydrALAZINE HCL 50 MG TABLET (FP) PO SCH ×3 (05:24→23:00)
[2021-09-24] MEDS: SODIUM CHLORIDE 0.45% 1,000 ML IV SCH ×2 (05:24→17:39)
[2021-09-24] MEDS: INSULIN SLIDING SCALE (NOVOLOG) 1 VIAL SQ SCH ×4 (06:07→23:00)
[2021-09-24] MEDS: methaDONE HCL 10 MG TABLET PO SCH (10:26)
[2021-09-24] MEDS: HEPARIN NA (PORCINE) 5,000 UNITS/ML 1ML VIAL SQ SCH ×2 (10:27→23:00)
[2021-09-24] MEDS: LOSARTAN POTASSIUM 50 MG TABLET PO SCH (10:27)
[2021-09-24] MEDS: RANOLAZINE E.R. 500 MG TABLET (FP) PO SCH ×2 (10:28→23:00)
[2021-09-24] MEDS: CLOPIDOGREL BISULFATE 75 MG TABLET (FP) PO SCH (10:28)
[2021-09-24] MEDS: OLANZapine 5 MG TABLET PO SCH (10:28)
[2021-09-24] MEDS: levETIRAcetam 500 MG TABLET (FP) PO SCH ×2 (10:28→23:00)
[2021-09-24] MEDS: ASPIRIN 81 MG CHEWABLE TABLETS PO SCH (10:28)
[2021-09-24 10:29] LABS: BASO % 0.8 % (0-2.0); HEMOGLOBIN 9.9 GM/dL (11.7-16.9); LYMPH % 29.7 % (8-40); MCH 24.9 pg (25.7-33.7); MCHC 30.9 g/dl (32.0-35.9); MEAN CELL VOLUME 80.5 fl (80-96); MEAN PLT VOLUME 9.2 fl (7.5-11.1); MONO % 8.7 % (3.8-10.2); NEUT % 59.8 % (42.8-82.8); PLATELET COUNT 238 10^3/uL (134-434); RBC 3.98 M/mm3 (4.00-5.60); RDW 20.2 % (11.9-15.9); WHITE BLOOD COUNT 5.3 K/mm3 (4.0-10.0)
[2021-09-24 11:39] LABS: CALCIUM 8.3 mg/dL (8.5-10.1)
[2021-09-24 11:40] LABS: BLOOD UREA NITROGEN 20.4 mg/dL (7-18)
[2021-09-24 11:42] LABS: ALBUMIN 2.9 g/dl (3.4-5.0); CREATININE 1.5 mg/dL (0.55-1.3)
[2021-09-24 11:43] LABS: TOT PROT 6.4 g/dl (6.4-8.2)
[2021-09-24 11:44] LABS: BILIRUBIN,TOTAL 0.5 mg/dL (0.2-1)
[2021-09-24 20:33] LABS: LACTIC ACID 3.2 mmol/L (0.4-2.0)
[2021-09-24] MEDS ORDERED: CEFTRIAXONE 1 GM in DEXTROSE 5%-WATER - 50 ML IVPB SCH (21:30)
[2021-09-24] MEDS ORDERED: DEXTROSE 5%-WATER - 50 ML IVPB ONE (22:33)
[2021-09-24] MEDS ORDERED: cefTRIAXone SODIUM 1 GM VIAL ONE (22:33)
[2021-09-24] MEDS: CEFTRIAXONE 1 GM in DEXTROSE 5%-WATER - 50 ML IVPB SCH (23:00)
[2021-09-24] MEDS: ROSUVASTATIN CA 5 MG TABLET PO SCH (23:00)
[2021-09-25] MEDS: methaDONE HCL 10 MG TABLET PO SCH (06:23)
[2021-09-25] MEDS: INSULIN SLIDING SCALE (NOVOLOG) 1 VIAL SQ SCH ×4 (06:23→21:40)
[2021-09-25] MEDS: hydrALAZINE HCL 50 MG TABLET (FP) PO SCH ×3 (06:23→21:40)
[2021-09-25] MEDS ORDERED: DEXTROSE 5%-WATER - 50 ML IVPB ONE (09:29)
[2021-09-25] MEDS ORDERED: cefTRIAXone SODIUM 1 GM VIAL ONE (09:29)
[2021-09-25] MEDS: SODIUM CHLORIDE 0.45% 1,000 ML IV SCH ×2 (09:58→17:52)
[2021-09-25] MEDS: CEFTRIAXONE 1 GM in DEXTROSE 5%-WATER - 50 ML IVPB SCH (09:59)
[2021-09-25] MEDS: levETIRAcetam 500 MG TABLET (FP) PO SCH ×2 (10:03→21:40)
[2021-09-25] MEDS: RANOLAZINE E.R. 500 MG TABLET (FP) PO SCH ×2 (10:03→21:40)
[2021-09-25] MEDS: CLOPIDOGREL BISULFATE 75 MG TABLET (FP) PO SCH (10:03)
[2021-09-25] MEDS: ASPIRIN 81 MG CHEWABLE TABLETS PO SCH (10:03)
[2021-09-25] MEDS: HEPARIN NA (PORCINE) 5,000 UNITS/ML 1ML VIAL SQ SCH ×2 (10:03→21:40)
[2021-09-25] MEDS: LOSARTAN POTASSIUM 50 MG TABLET PO SCH (10:03)
[2021-09-25] MEDS: OLANZapine 5 MG TABLET PO SCH (10:03)
[2021-09-25 11:28] LABS: BASO % 0.6 % (0-2.0); EOS % 1.7 % (0-4.5); HEMATOCRIT 29.9 % (35.4-49); HEMOGLOBIN 9.5 GM/dL (11.7-16.9); LYMPH % 34.2 % (8-40); MCH 25.6 pg (25.7-33.7); MCHC 31.7 g/dl (32.0-35.9); MEAN CELL VOLUME 80.6 fl (80-96); MEAN PLT VOLUME 9.1 fl (7.5-11.1); MONO % 12.8 % (3.8-10.2); NEUT % 50.7 % (42.8-82.8); PLATELET COUNT 225 10^3/uL (134-434); RDW 20.7 % (11.9-15.9); WHITE BLOOD COUNT 4.3 K/mm3 (4.0-10.0)
[2021-09-25 11:43] LABS: CALCIUM 8.2 mg/dL (8.5-10.1)
[2021-09-25 11:44] LABS: ALBUMIN 2.7 g/dl (3.4-5.0); BLOOD UREA NITROGEN 21.7 mg/dL (7-18)
[2021-09-25 11:47] LABS: CREATININE 1.4 mg/dL (0.55-1.3)
[2021-09-25 11:48] LABS: BILIRUBIN,TOTAL 0.3 mg/dL (0.2-1); TOT PROT 6.2 g/dl (6.4-8.2)
[2021-09-25 11:55] LABS: LACTIC ACID 4.4 mmol/L (0.4-2.0)
[2021-09-25] MEDS ORDERED: SODIUM CHLORIDE 1,000 ML IV ONE (12:45)
[2021-09-25 14:33] LABS: ANISOCYTOSIS 1+; MACROCYTOSIS 0; PLATELET ESTIMATE NORMAL
[2021-09-25] MEDS: ROSUVASTATIN CA 5 MG TABLET PO SCH (21:40)
[2021-09-26] MEDS: methaDONE HCL 10 MG TABLET PO SCH (06:38)
[2021-09-26] MEDS: hydrALAZINE HCL 50 MG TABLET (FP) PO SCH ×3 (06:38→22:14)
[2021-09-26] MEDS: INSULIN SLIDING SCALE (NOVOLOG) 1 VIAL SQ SCH ×4 (06:39→22:15)
[2021-09-26] MEDS: SODIUM CHLORIDE 0.45% 1,000 ML IV SCH (08:01)
[2021-09-26 09:35] LABS: BASO % 1.1 % (0-2.0); EOS % 1.7 % (0-4.5); HEMATOCRIT 28.8 % (35.4-49); HEMOGLOBIN 9.3 GM/dL (11.7-16.9); LYMPH % 31.5 % (8-40); MCHC 32.2 g/dl (32.0-35.9); MEAN CELL VOLUME 80.9 fl (80-96); MEAN PLT VOLUME 8.4 fl (7.5-11.1); MONO % 9.9 % (3.8-10.2); NEUT % 55.8 % (42.8-82.8); PLATELET COUNT 216 10^3/uL (134-434); RBC 3.56 M/mm3 (4.00-5.60); WHITE BLOOD COUNT 4.4 K/mm3 (4.0-10.0)
[2021-09-26 10:00] LABS: ALBUMIN 2.7 g/dl (3.4-5.0); BLOOD UREA NITROGEN 24.1 mg/dL (7-18); CALCIUM 8.8 mg/dL (8.5-10.1)
[2021-09-26 10:04] LABS: CREATININE 1.5 mg/dL (0.55-1.3)
[2021-09-26 10:05] LABS: BILIRUBIN,TOTAL 0.6 mg/dL (0.2-1); TOT PROT 6.3 g/dl (6.4-8.2)
[2021-09-26] MEDS ORDERED: DEXTROSE 5%-WATER - 50 ML IVPB ONE (11:17)
[2021-09-26] MEDS ORDERED: cefTRIAXone SODIUM 1 GM VIAL ONE (11:17)
[2021-09-26] MEDS: CEFTRIAXONE 1 GM in DEXTROSE 5%-WATER - 50 ML IVPB SCH (11:24)
[2021-09-26] MEDS: HEPARIN NA (PORCINE) 5,000 UNITS/ML 1ML VIAL SQ SCH ×2 (11:25→22:15)
[2021-09-26] MEDS: LOSARTAN POTASSIUM 50 MG TABLET PO SCH (11:27)
[2021-09-26] MEDS: ASPIRIN 81 MG CHEWABLE TABLETS PO SCH (11:27)
[2021-09-26] MEDS: levETIRAcetam 500 MG TABLET (FP) PO SCH ×2 (11:27→22:15)
[2021-09-26] MEDS: RANOLAZINE E.R. 500 MG TABLET (FP) PO SCH ×2 (11:28→22:14)
[2021-09-26] MEDS: CLOPIDOGREL BISULFATE 75 MG TABLET (FP) PO SCH (11:28)
[2021-09-26] MEDS: OLANZapine 5 MG TABLET PO SCH (11:28)
[2021-09-26] MEDS ORDERED: SODIUM CHLORIDE 0.9% 500 ML INFUS.BAG IV ONE (13:28)
[2021-09-26] MEDS ORDERED: SODIUM CHLORIDE 500 ML IV SCH (14:30)
[2021-09-26] MEDS: ROSUVASTATIN CA 5 MG TABLET PO SCH (22:14)
[2021-09-27] MEDS: hydrALAZINE HCL 50 MG TABLET (FP) PO SCH ×3 (06:30→21:35)
[2021-09-27] MEDS: methaDONE HCL 10 MG TABLET PO SCH (06:30)
[2021-09-27] MEDS: SODIUM CHLORIDE 0.45% 1,000 ML IV SCH ×3 (06:30→22:50)
[2021-09-27] MEDS: INSULIN SLIDING SCALE (NOVOLOG) 1 VIAL SQ SCH ×4 (06:31→21:36)
[2021-09-27] MEDS ORDERED: INSULIN (LEVEMIR) 100 UNITS/ML UNITS SQ SCH ×2 (07:00→22:00)
[2021-09-27 09:34] LABS: BASO % 0.8 % (0-2.0); EOS % 2.1 % (0-4.5); HEMATOCRIT 29.1 % (35.4-49); HEMOGLOBIN 9.3 GM/dL (11.7-16.9); LYMPH % 33.4 % (8-40); MCH 25.8 pg (25.7-33.7); MCHC 32.1 g/dl (32.0-35.9); MEAN CELL VOLUME 80.6 fl (80-96); MEAN PLT VOLUME 8.6 fl (7.5-11.1); MONO % 8.2 % (3.8-10.2); NEUT % 55.5 % (42.8-82.8); PLATELET COUNT 239 10^3/uL (134-434); RBC 3.61 M/mm3 (4.00-5.60); RDW 20.8 % (11.9-15.9); WHITE BLOOD COUNT 4.9 K/mm3 (4.0-10.0)
[2021-09-27 10:06] LABS: LACTIC ACID 3.8 mmol/L (0.4-2.0)
[2021-09-27 10:08] LABS: CALCIUM 8.9 mg/dL (8.5-10.1)
[2021-09-27 10:09] LABS: BLOOD UREA NITROGEN 22.8 mg/dL (7-18)
[2021-09-27 10:11] LABS: CREATININE 1.3 mg/dL (0.55-1.3)
[2021-09-27 10:13] LABS: BILIRUBIN,TOTAL 0.4 mg/dL (0.2-1)
[2021-09-27] MEDS ORDERED: cefTRIAXone SODIUM 1 GM VIAL ONE (12:23)
[2021-09-27] MEDS ORDERED: DEXTROSE 5%-WATER - 50 ML IVPB ONE (12:23)
[2021-09-27] MEDS: RANOLAZINE E.R. 500 MG TABLET (FP) PO SCH ×2 (12:37→21:35)
[2021-09-27] MEDS: CLOPIDOGREL BISULFATE 75 MG TABLET (FP) PO SCH (12:37)
[2021-09-27] MEDS: ASPIRIN 81 MG CHEWABLE TABLETS PO SCH (12:37)
[2021-09-27] MEDS: levETIRAcetam 500 MG TABLET (FP) PO SCH ×2 (12:37→21:35)
[2021-09-27] MEDS: LOSARTAN POTASSIUM 50 MG TABLET PO SCH (12:39)
[2021-09-27] MEDS: HEPARIN NA (PORCINE) 5,000 UNITS/ML 1ML VIAL SQ SCH ×2 (12:39→21:35)
[2021-09-27] MEDS: CEFTRIAXONE 1 GM in DEXTROSE 5%-WATER - 50 ML IVPB SCH (12:41)
[2021-09-27] MEDS: OLANZapine 2.5 MG TABLET PO SCH (12:42)
[2021-09-27] MEDS ORDERED: DEXTROSE 70%-WATER - 35 ML, WATER FOR INJ,STERILE 15 ML IV ONE (13:45)
[2021-09-27] MEDS: ROSUVASTATIN CA 5 MG TABLET PO SCH (21:35)
[2021-09-27] MEDS: INSULIN (LEVEMIR) 100 UNITS/ML UNITS SQ SCH (21:36)
[2021-09-28] MEDS: methaDONE HCL 10 MG TABLET PO SCH (06:28)
[2021-09-28] MEDS: SODIUM CHLORIDE 0.45% 1,000 ML IV SCH ×2 (07:08→11:59)
[2021-09-28] MEDS: INSULIN (LEVEMIR) 100 UNITS/ML UNITS SQ SCH ×2 (07:08→21:42)
[2021-09-28] MEDS: hydrALAZINE HCL 50 MG TABLET (FP) PO SCH ×3 (07:08→21:39)
[2021-09-28] MEDS: INSULIN SLIDING SCALE (NOVOLOG) 1 VIAL SQ SCH ×4 (07:09→21:41)
[2021-09-28 08:52] LABS: BASO % 0.6 % (0-2.0); EOS % 2.5 % (0-4.5); HEMATOCRIT 26.3 % (35.4-49); HEMOGLOBIN 8.5 GM/dL (11.7-16.9); LYMPH % 33.5 % (8-40); MCH 25.8 pg (25.7-33.7); MCHC 32.2 g/dl (32.0-35.9); MEAN CELL VOLUME 80.2 fl (80-96); MEAN PLT VOLUME 8.6 fl (7.5-11.1); MONO % 13.8 % (3.8-10.2); NEUT % 49.6 % (42.8-82.8); PLATELET COUNT 203 10^3/uL (134-434); RBC 3.29 M/mm3 (4.00-5.60); RDW 20.8 % (11.9-15.9); WHITE BLOOD COUNT 4.8 K/mm3 (4.0-10.0)
[2021-09-28 09:22] LABS: ALBUMIN 2.7 g/dl (3.4-5.0)
[2021-09-28 09:26] LABS: BLOOD UREA NITROGEN 17.9 mg/dL (7-18); CALCIUM 8.2 mg/dL (8.5-10.1)
[2021-09-28 09:27] LABS: BILIRUBIN,TOTAL 0.4 mg/dL (0.2-1); TOT PROT 6.2 g/dl (6.4-8.2)
[2021-09-28] MEDS ORDERED: cefTRIAXone SODIUM 1 GM VIAL ONE (10:49)
[2021-09-28] MEDS ORDERED: DEXTROSE 5%-WATER - 50 ML IVPB ONE (10:50)
[2021-09-28] MEDS: LOSARTAN POTASSIUM 50 MG TABLET PO SCH (10:58)
[2021-09-28] MEDS: ASPIRIN 81 MG CHEWABLE TABLETS PO SCH (10:58)
[2021-09-28] MEDS: CEFTRIAXONE 1 GM in DEXTROSE 5%-WATER - 50 ML IVPB SCH (10:59)
[2021-09-28] MEDS: HEPARIN NA (PORCINE) 5,000 UNITS/ML 1ML VIAL SQ SCH ×2 (10:59→21:39)
[2021-09-28] MEDS: CLOPIDOGREL BISULFATE 75 MG TABLET (FP) PO SCH (10:59)
[2021-09-28] MEDS: levETIRAcetam 500 MG TABLET (FP) PO SCH ×2 (10:59→21:39)
[2021-09-28] MEDS: RANOLAZINE E.R. 500 MG TABLET (FP) PO SCH ×2 (10:59→21:39)
[2021-09-28] MEDS: OLANZapine 2.5 MG TABLET PO SCH (11:00)
[2021-09-28] MEDS: ROSUVASTATIN CA 5 MG TABLET PO SCH (21:39)
[2021-09-29] MEDS: methaDONE HCL 10 MG TABLET PO SCH (06:08)
[2021-09-29] MEDS: hydrALAZINE HCL 50 MG TABLET (FP) PO SCH ×3 (06:08→21:21)
[2021-09-29] MEDS: INSULIN (LEVEMIR) 100 UNITS/ML UNITS SQ SCH ×2 (06:11→21:28)
[2021-09-29] MEDS: INSULIN SLIDING SCALE (NOVOLOG) 1 VIAL SQ SCH ×4 (06:11→21:28)
[2021-09-29] MEDS ORDERED: DEXTROSE 5%-WATER - 50 ML IVPB ONE (09:05)
[2021-09-29] MEDS ORDERED: cefTRIAXone SODIUM 1 GM VIAL ONE (09:05)
[2021-09-29] MEDS: CLOPIDOGREL BISULFATE 75 MG TABLET (FP) PO SCH (09:32)
[2021-09-29] MEDS: LOSARTAN POTASSIUM 50 MG TABLET PO SCH (09:32)
[2021-09-29] MEDS: OLANZapine 2.5 MG TABLET PO SCH (09:32)
[2021-09-29] MEDS: RANOLAZINE E.R. 500 MG TABLET (FP) PO SCH ×2 (09:32→21:21)
[2021-09-29] MEDS: levETIRAcetam 500 MG TABLET (FP) PO SCH ×2 (09:32→21:21)
[2021-09-29] MEDS: ASPIRIN 81 MG CHEWABLE TABLETS PO SCH (09:32)
[2021-09-29] MEDS: CEFTRIAXONE 1 GM in DEXTROSE 5%-WATER - 50 ML IVPB SCH (09:32)
[2021-09-29] MEDS: HEPARIN NA (PORCINE) 5,000 UNITS/ML 1ML VIAL SQ SCH ×2 (09:35→21:21)
[2021-09-29] MEDS: SODIUM CHLORIDE 0.45% 1,000 ML IV SCH (10:47)
[2021-09-29] MEDS: ROSUVASTATIN CA 5 MG TABLET PO SCH (21:21)
[2021-09-30] MEDS: hydrALAZINE HCL 50 MG TABLET (FP) PO SCH ×3 (06:16→22:43)
[2021-09-30] MEDS: methaDONE HCL 10 MG TABLET PO SCH (06:16)
[2021-09-30] MEDS: INSULIN SLIDING SCALE (NOVOLOG) 1 VIAL SQ SCH ×4 (06:20→21:35)
[2021-09-30] MEDS: INSULIN (LEVEMIR) 100 UNITS/ML UNITS SQ SCH ×2 (06:20→21:35)
[2021-09-30] MEDS ORDERED: cefTRIAXone SODIUM 1 GM VIAL ONE (08:54)
[2021-09-30] MEDS ORDERED: DEXTROSE 5%-WATER - 50 ML IVPB ONE (08:54)
[2021-09-30] MEDS: CEFTRIAXONE 1 GM in DEXTROSE 5%-WATER - 50 ML IVPB SCH (09:01)
[2021-09-30] MEDS: CLOPIDOGREL BISULFATE 75 MG TABLET (FP) PO SCH (09:01)
[2021-09-30] MEDS: LOSARTAN POTASSIUM 50 MG TABLET PO SCH (09:01)
[2021-09-30] MEDS: ASPIRIN 81 MG CHEWABLE TABLETS PO SCH (09:02)
[2021-09-30] MEDS: OLANZapine 2.5 MG TABLET PO SCH (09:02)
[2021-09-30] MEDS: RANOLAZINE E.R. 500 MG TABLET (FP) PO SCH ×2 (09:02→21:35)
[2021-09-30] MEDS: levETIRAcetam 500 MG TABLET (FP) PO SCH ×2 (09:02→21:35)
[2021-09-30 09:28] LABS: BASO % 0.8 % (0-2.0); EOS % 0.6 % (0-4.5); HEMATOCRIT 19.4 % (35.4-49); LYMPH % 29.8 % (8-40); MCH 25.6 pg (25.7-33.7); MCHC 31.6 g/dl (32.0-35.9); MONO % 9.8 % (3.8-10.2); PLATELET COUNT 189 10^3/uL (134-434); RBC 2.39 M/mm3 (4.00-5.60); RDW 21.3 % (11.9-15.9); WHITE BLOOD COUNT 5.9 K/mm3 (4.0-10.0)
[2021-09-30 09:48] LABS: HEMOGLOBIN 6.1 GM/dL (11.7-16.9)
[2021-09-30 09:51] LABS: CALCIUM 8.4 mg/dL (8.5-10.1)
[2021-09-30 09:52] LABS: ALBUMIN 2.6 g/dl (3.4-5.0)
[2021-09-30 09:55] LABS: CREATININE 1.2 mg/dL (0.55-1.3)
[2021-09-30 09:56] LABS: BILIRUBIN,TOTAL 0.3 mg/dL (0.2-1); TOT PROT 5.9 g/dl (6.4-8.2)
[2021-09-30 09:57] LABS: BLOOD UREA NITROGEN 50.1 mg/dL (7-18)
[2021-09-30 12:24] LABS: ANISOCYTOSIS 2+; MACROCYTOSIS 0; OVALOCYTE 1+; TARGET CELLS 1+
[2021-09-30 13:44] LABS: MCH 25.7 pg (25.7-33.7); MCHC 31.6 g/dl (32.0-35.9); MEAN CELL VOLUME 81.3 fl (80-96); MEAN PLT VOLUME 9.6 fl (7.5-11.1); PLATELET COUNT 216 10^3/uL (134-434); RBC 2.46 M/mm3 (4.00-5.60); RDW 21.7 % (11.9-15.9); WHITE BLOOD COUNT 6.8 K/mm3 (4.0-10.0)
[2021-09-30 13:48] LABS: HEMOGLOBIN 6.3 GM/dL (11.7-16.9)
[2021-09-30] MEDS: ROSUVASTATIN CA 5 MG TABLET PO SCH (21:34)
[2021-10-01] MEDS: methaDONE HCL 10 MG TABLET PO SCH (05:48)
[2021-10-01] MEDS: INSULIN SLIDING SCALE (NOVOLOG) 1 VIAL SQ SCH ×4 (06:46→22:11)
[2021-10-01] MEDS ORDERED: PANTOPRAZOLE 40 MG TABLET PO SCH (10:00)
[2021-10-01] MEDS: levETIRAcetam 500 MG TABLET (FP) PO SCH ×2 (10:21→22:12)
[2021-10-01] MEDS: OLANZapine 2.5 MG TABLET PO SCH (10:21)
[2021-10-01] MEDS: CLOPIDOGREL BISULFATE 75 MG TABLET (FP) PO SCH (10:23)
[2021-10-01] MEDS: ASPIRIN 81 MG CHEWABLE TABLETS PO SCH (10:23)
[2021-10-01] MEDS: RANOLAZINE E.R. 500 MG TABLET (FP) PO SCH (10:24)
[2021-10-01] MEDS: LOSARTAN POTASSIUM 50 MG TABLET PO SCH (10:24)
[2021-10-01 10:48] LABS: BASO % 0.4 % (0-2.0); EOS % 1.8 % (0-4.5); HEMATOCRIT 20.1 % (35.4-49); LYMPH % 34.2 % (8-40); MCH 26.7 pg (25.7-33.7); MEAN CELL VOLUME 80.9 fl (80-96); MEAN PLT VOLUME 9.2 fl (7.5-11.1); MONO % 9.8 % (3.8-10.2); NEUT % 53.8 % (42.8-82.8); PLATELET COUNT 190 10^3/uL (134-434); RBC 2.49 M/mm3 (4.00-5.60); RDW 19.8 % (11.9-15.9)
[2021-10-01 10:56] LABS: HEMOGLOBIN 6.6 GM/dL (11.7-16.9)
[2021-10-01 11:06] LABS: CALCIUM 8.1 mg/dL (8.5-10.1)
[2021-10-01 11:07] LABS: ALBUMIN 2.7 g/dl (3.4-5.0)
[2021-10-01 11:10] LABS: CREATININE 1.3 mg/dL (0.55-1.3)
[2021-10-01 11:11] LABS: BILIRUBIN,TOTAL 0.2 mg/dL (0.2-1)
[2021-10-01] MEDS: INSULIN (LEVEMIR) 100 UNITS/ML UNITS SQ SCH (11:28)
[2021-10-01] MEDS: SODIUM CHLORIDE 0.45% 1,000 ML IV SCH (12:46)
[2021-10-01] MEDS: PANTOPRAZOLE SODIUM 40 MG VIAL IVPUSH SCH (22:12)
[2021-10-02] MEDS: methaDONE HCL 10 MG TABLET PO SCH (06:05)
[2021-10-02] MEDS: INSULIN SLIDING SCALE (NOVOLOG) 1 VIAL SQ SCH ×4 (06:06→21:48)
[2021-10-02] MEDS: INSULIN (LEVEMIR) 100 UNITS/ML UNITS SQ SCH (06:06)
[2021-10-02] MEDS: levETIRAcetam 500 MG TABLET (FP) PO SCH ×2 (10:07→21:47)
[2021-10-02] MEDS: PANTOPRAZOLE SODIUM 40 MG VIAL IVPUSH SCH ×2 (10:07→21:48)
[2021-10-02] MEDS: OLANZapine 2.5 MG TABLET PO SCH (10:07)
[2021-10-02] MEDS: SODIUM CHLORIDE 0.45% 1,000 ML IV SCH (12:31)
[2021-10-02 13:15] LABS: ALBUMIN 2.6 g/dl (3.4-5.0); BLOOD UREA NITROGEN 27.5 mg/dL (7-18); CALCIUM 8.2 mg/dL (8.5-10.1)
[2021-10-02 13:18] LABS: CREATININE 1.1 mg/dL (0.55-1.3)
[2021-10-02 13:20] LABS: BILIRUBIN,TOTAL 0.4 mg/dL (0.2-1); TOT PROT 5.8 g/dl (6.4-8.2)
[2021-10-02 13:24] LABS: BASO % 0.8 % (0-2.0); EOS % 1.6 % (0-4.5); HEMATOCRIT 23.6 % (35.4-49); HEMOGLOBIN 7.8 GM/dL (11.7-16.9); LYMPH % 26.7 % (8-40); MCH 27.4 pg (25.7-33.7); MCHC 33.1 g/dl (32.0-35.9); MEAN CELL VOLUME 82.7 fl (80-96); MEAN PLT VOLUME 8.7 fl (7.5-11.1); MONO % 9.1 % (3.8-10.2); NEUT % 61.8 % (42.8-82.8); PLATELET COUNT 182 10^3/uL (134-434); RBC 2.85 M/mm3 (4.00-5.60); RDW 17.8 % (11.9-15.9); WHITE BLOOD COUNT 6.5 K/mm3 (4.0-10.0)
[2021-10-03] MEDS: methaDONE HCL 10 MG TABLET PO SCH (06:36)
[2021-10-03] MEDS: INSULIN (LEVEMIR) 100 UNITS/ML UNITS SQ SCH (06:39)
[2021-10-03] MEDS: INSULIN SLIDING SCALE (NOVOLOG) 1 VIAL SQ SCH ×4 (06:39→21:45)
[2021-10-03] MEDS: SODIUM CHLORIDE 0.45% 1,000 ML IV SCH ×2 (07:30→12:30)
[2021-10-03] MEDS: levETIRAcetam 500 MG TABLET (FP) PO SCH ×2 (09:39→21:44)
[2021-10-03] MEDS: PANTOPRAZOLE SODIUM 40 MG VIAL IVPUSH SCH ×2 (09:39→21:44)
[2021-10-03] MEDS: OLANZapine 2.5 MG TABLET PO SCH (09:39)
[2021-10-03 09:49] LABS: BASO % 0.9 % (0-2.0); EOS % 1.5 % (0-4.5); HEMATOCRIT 25.7 % (35.4-49); HEMOGLOBIN 8.8 GM/dL (11.7-16.9); LYMPH % 27.2 % (8-40); MCH 28.4 pg (25.7-33.7); MCHC 34.2 g/dl (32.0-35.9); MEAN PLT VOLUME 8.7 fl (7.5-11.1); MONO % 9.4 % (3.8-10.2); PLATELET COUNT 197 10^3/uL (134-434); RDW 17.4 % (11.9-15.9); WHITE BLOOD COUNT 6.3 K/mm3 (4.0-10.0)
[2021-10-03 10:05] LABS: CALCIUM 8.4 mg/dL (8.5-10.1)
[2021-10-03 10:06] LABS: BLOOD UREA NITROGEN 19.4 mg/dL (7-18)
[2021-10-03 10:09] LABS: CREATININE 1.3 mg/dL (0.55-1.3)
[2021-10-04] MEDS: methaDONE HCL 10 MG TABLET PO SCH (05:58)
[2021-10-04] MEDS: INSULIN SLIDING SCALE (NOVOLOG) 1 VIAL SQ SCH ×5 (06:02→21:40)
[2021-10-04] MEDS: INSULIN (LEVEMIR) 100 UNITS/ML UNITS SQ SCH (06:03)
[2021-10-04] MEDS: levETIRAcetam 500 MG TABLET (FP) PO SCH ×2 (09:27→21:28)
[2021-10-04] MEDS: PANTOPRAZOLE 40 MG TABLET PO SCH ×2 (09:27→21:28)
[2021-10-04] MEDS: OLANZapine 2.5 MG TABLET PO SCH (09:28)
[2021-10-04] MEDS: SODIUM CHLORIDE 0.45% 1,000 ML IV SCH (12:45)
[2021-10-04 13:00] LABS: BASO % 0.9 % (0-2.0); EOS % 1.2 % (0-4.5); HEMATOCRIT 30.8 % (35.4-49); HEMOGLOBIN 10.1 GM/dL (11.7-16.9); LYMPH % 23.3 % (8-40); MCH 27.5 pg (25.7-33.7); MCHC 32.8 g/dl (32.0-35.9); MEAN CELL VOLUME 83.9 fl (80-96); MEAN PLT VOLUME 8.3 fl (7.5-11.1); MONO % 8.4 % (3.8-10.2); NEUT % 66.2 % (42.8-82.8); PLATELET COUNT 280 10^3/uL (134-434); RBC 3.67 M/mm3 (4.00-5.60); RDW 18.1 % (11.9-15.9); WHITE BLOOD COUNT 6.5 K/mm3 (4.0-10.0)
[2021-10-04] MEDS ORDERED: INSULIN (NOVOLOG) ASPART 100 UNITS/ML 10ML VIAL SQ ONE (13:15)
[2021-10-04] MEDS ORDERED: INSULIN (LEVEMIR) 100 UNITS/ML UNITS SQ ONE (13:15)
[2021-10-04 13:17] LABS: CHLORIDE 99 mmol/L (98-107); SODIUM 132 mmol/L (136-145)
[2021-10-04 13:19] LABS: CALCIUM 8.9 mg/dL (8.5-10.1)
[2021-10-04 13:20] LABS: ALBUMIN 3.1 g/dl (3.4-5.0); ANION GAP 10 MMOL/L (8-16); BLOOD UREA NITROGEN 18.1 mg/dL (7-18); CO2 23 mmol/L (21-32)
[2021-10-04 13:23] LABS: CREATININE 1.2 mg/dL (0.55-1.3); SGOT/AST 23 U/L (15-37); SGPT/ALT 17 U/L (13-61)
[2021-10-04 13:25] LABS: BILIRUBIN,TOTAL 0.6 mg/dL (0.2-1); TOT PROT 6.9 g/dl (6.4-8.2)
[2021-10-04 13:30] LABS: ALK PHOS 172 U/L (45-117); GLUCOSE,RANDOM 588 mg/dL (74-106)
[2021-10-04] MEDS ORDERED: INSULIN (LEVEMIR) 100 UNITS/ML UNITS SQ SCH (22:00)
[2021-10-05] MEDS ORDERED: methaDONE HCL 10 MG TABLET PO SCH (06:00)
[2021-10-05] MEDS: INSULIN SLIDING SCALE (NOVOLOG) 1 VIAL SQ SCH ×3 (06:28→17:00)
[2021-10-05] MEDS ORDERED: INSULIN (LEVEMIR) 100 UNITS/ML UNITS SQ SCH ×2 (07:00)
[2021-10-05 08:44] LABS: BASO % 0.5 % (0-2.0); EOS % 2.1 % (0-4.5); HEMATOCRIT 27.4 % (35.4-49); HEMOGLOBIN 8.9 GM/dL (11.7-16.9); LYMPH % 30.6 % (8-40); MCH 27.2 pg (25.7-33.7); MCHC 32.7 g/dl (32.0-35.9); MEAN CELL VOLUME 83.2 fl (80-96); MEAN PLT VOLUME 8.4 fl (7.5-11.1); MONO % 10.9 % (3.8-10.2); NEUT % 55.9 % (42.8-82.8); PLATELET COUNT 264 10^3/uL (134-434); RBC 3.29 M/mm3 (4.00-5.60); RDW 17.8 % (11.9-15.9); WHITE BLOOD COUNT 6.4 K/mm3 (4.0-10.0)
[2021-10-05] MEDS: PANTOPRAZOLE 40 MG TABLET PO SCH (09:03)
[2021-10-05] MEDS: levETIRAcetam 500 MG TABLET (FP) PO SCH (09:03)
[2021-10-05] MEDS: OLANZapine 2.5 MG TABLET PO SCH (09:04)
[2021-10-05] MEDS: SODIUM CHLORIDE 0.45% 1,000 ML IV SCH (09:04)
[2021-10-05 14:58] VITALS: BP 123/76; PULSE 75; TEMP 98.3
== END 2021-10-05 17:15 | disposition home or self-care (01) | DRG 638 ==
LOC: JER 11:12 → JERBED 13:03 → J5S 20:13
PROVIDERS: ADMIT Internal Medicine Pulmonary Disease; ATTEND Internal Medicine
PROC: 30233N1 Transfusion of Nonautologous Red Blood Cells into Peripheral Vein, Percutaneous Approach (ICD-10-PCS; 2021-09-30)
PROC: 0DB68ZX Excision of Stomach, Via Natural or Artificial Opening Endoscopic, Diagnostic (ICD-10-PCS; principal; 2021-10-04 07:45)
DX: E11.10 Type 2 diabetes mellitus with ketoacidosis without coma (principal); N17.9 Acute kidney failure, unspecified; E87.2 Acidosis; N39.0 Urinary tract infection, site not specified; F11.20 Opioid dependence, uncomplicated; I25.10 Atherosclerotic heart disease of native coronary artery without angina pectoris; I10 Essential (primary) hypertension; G40.909 Epilepsy, unspecified, not intractable, without status epilepticus; E78.5 Hyperlipidemia, unspecified; E86.0 Dehydration; B19.20 Unspecified viral hepatitis C without hepatic coma; E11.22 Type 2 diabetes mellitus with diabetic chronic kidney disease; I12.9 Hypertensive chronic kidney disease with stage 1 through stage 4 chronic kidney disease, or unspecified chronic kidney disease; N18.9 Chronic kidney disease, unspecified; D64.9 Anemia, unspecified; Z79.4 Long term (current) use of insulin; D63.8 Anemia in other chronic diseases classified elsewhere; K25.9 Gastric ulcer, unspecified as acute or chronic, without hemorrhage or perforation
CPT/HCPCS: 36415; 36430; 36511; 71046-TC-FY; 76775-TC; 80048; 80053; 80177; 81003; 82010; 82272; 82550; 82607; 82803; 82962; 83036; 83605; 83615; 84443; 84484; 85025; 85027; 85610; 85730; 86780; 86850; 86900; 86901; 86922; 87086; 87186; 88305-TC; 93005; 93010; 97116-GP; 97162-GP; 99291; C9803; J1644; P9038; P9058; U0003; U0005

== ENCOUNTER 2021-11-05 02:38 | Observation (INO) | payer OTHER ==
[2021-11-05] MEDS ORDERED: ONDANSETRON 4 MG/2 ML VIAL IVPUSH ONE (03:11)
[2021-11-05 03:28] VITALS: BMI 32.3
[2021-11-05] MEDS ORDERED: ONDANSETRON 4 MG/2 ML VIAL ONE (03:40)
[2021-11-05 03:47] LABS: URINE APPEARANCE CLEAR; URINE BILIRUBIN NEGATIVE (NEGATIVE); URINE COLOR YELLOW; URINE GLUCOSE (UA) 2+ (NEGATIVE); URINE KETONE NEGATIVE (NEGATIVE); URINE LEUK ESTERASE NEGATIVE (NEGATIVE); URINE NITRITE NEGATIVE (NEGATIVE); URINE PROTEIN NEGATIVE (NEGATIVE)
[2021-11-05 03:49] LABS: BASO % 0.7 % (0-2.0); EOS % 1.8 % (0-4.5); HEMATOCRIT 33.3 % (35.4-49); HEMOGLOBIN 10.4 GM/dL (11.7-16.9); LYMPH % 19.9 % (8-40); MCH 24.6 pg (25.7-33.7); MCHC 31.3 g/dl (32.0-35.9); MEAN CELL VOLUME 78.7 fl (80-96); MEAN PLT VOLUME 8.6 fl (7.5-11.1); MONO % 6.9 % (3.8-10.2); NEUT % 70.7 % (42.8-82.8); PLATELET COUNT 180 10^3/uL (134-434); RBC 4.23 M/mm3 (4.00-5.60); RDW 18.9 % (11.9-15.9); WHITE BLOOD COUNT 10.1 K/mm3 (4.0-10.0)
[2021-11-05 04:04] LABS: BLOOD UREA NITROGEN 18.7 mg/dL (7-18); CALCIUM 8.8 mg/dL (8.5-10.1)
[2021-11-05 04:07] LABS: PHOSPHOROUS 3.5 mg/dL (2.5-4.9)
[2021-11-05 04:08] LABS: CREATININE 1.2 mg/dL (0.55-1.3)
[2021-11-05 04:09] LABS: BILIRUBIN,TOTAL 0.3 mg/dL (0.2-1)
[2021-11-05 04:22] LABS: PROTHROMBIN TIME (PATIENT) 11.5 SEC (9.7-13.0)
[2021-11-05 04:24] LABS: ACTIVATED PTT 34.4 SECONDS (25.2-36.5)
[2021-11-05] MEDS: DEXTROSE 5%-0.45% SALINE 1,000 ML IV SCH (08:30)
[2021-11-05] MEDS: methaDONE HCL 10 MG TABLET PO SCH (09:18)
[2021-11-05] MEDS: HEPARIN NA (PORCINE) 5,000 UNITS/ML 1ML VIAL SQ SCH ×2 (12:07→22:15)
[2021-11-05] MEDS: levETIRAcetam 500 MG TABLET (FP) PO SCH ×2 (12:07→22:16)
[2021-11-05] MEDS: RANOLAZINE E.R. 500 MG TABLET (FP) PO SCH ×2 (12:09→22:16)
[2021-11-05] MEDS: INSULIN SLIDING SCALE (NOVOLOG) 1 VIAL SQ SCH ×2 (17:21→22:22)
[2021-11-05] MEDS: ROSUVASTATIN CA 5 MG TABLET PO SCH (22:16)
[2021-11-06] MEDS: methaDONE HCL 10 MG TABLET PO SCH (05:24)
[2021-11-06] MEDS: INSULIN SLIDING SCALE (NOVOLOG) 1 VIAL SQ SCH ×4 (06:06→22:00)
[2021-11-06 08:30] LABS: BASO % 1.3 % (0-2.0); HEMATOCRIT 30.5 % (35.4-49); HEMOGLOBIN 9.4 GM/dL (11.7-16.9); LYMPH % 32.4 % (8-40); MCH 24.3 pg (25.7-33.7); MCHC 30.9 g/dl (32.0-35.9); MEAN CELL VOLUME 78.6 fl (80-96); MEAN PLT VOLUME 8.6 fl (7.5-11.1); MONO % 9.3 % (3.8-10.2); PLATELET COUNT 262 10^3/uL (134-434); RBC 3.89 M/mm3 (4.00-5.60); RDW 18.9 % (11.9-15.9); WHITE BLOOD COUNT 6.7 K/mm3 (4.0-10.0)
[2021-11-06 08:47] LABS: ALBUMIN 3.4 g/dl (3.4-5.0); CALCIUM 8.7 mg/dL (8.5-10.1)
[2021-11-06 08:48] LABS: BLOOD UREA NITROGEN 23.4 mg/dL (7-18)
[2021-11-06 08:50] LABS: CREATININE 1.4 mg/dL (0.55-1.3)
[2021-11-06 08:52] LABS: BILIRUBIN,TOTAL 0.5 mg/dL (0.2-1)
[2021-11-06] MEDS: levETIRAcetam 500 MG TABLET (FP) PO SCH ×2 (09:58→21:54)
[2021-11-06] MEDS: RANOLAZINE E.R. 500 MG TABLET (FP) PO SCH ×2 (09:58→21:54)
[2021-11-06] MEDS: HEPARIN NA (PORCINE) 5,000 UNITS/ML 1ML VIAL SQ SCH ×2 (09:59→21:54)
[2021-11-06] MEDS: DEXTROSE 5%-0.45% SALINE 1,000 ML IV SCH (09:59)
[2021-11-06] MEDS: AMINO ACIDS/PROTEIN HYDROLYS 30 ML LIQUID.PKT PO SCH (10:01)
[2021-11-06] MEDS: ROSUVASTATIN CA 5 MG TABLET PO SCH (21:54)
[2021-11-07] MEDS: methaDONE HCL 10 MG TABLET PO SCH (06:01)
[2021-11-07] MEDS: INSULIN SLIDING SCALE (NOVOLOG) 1 VIAL SQ SCH ×2 (06:03→11:23)
[2021-11-07] MEDS: RANOLAZINE E.R. 500 MG TABLET (FP) PO SCH (09:27)
[2021-11-07] MEDS: levETIRAcetam 500 MG TABLET (FP) PO SCH (09:27)
[2021-11-07] MEDS: HEPARIN NA (PORCINE) 5,000 UNITS/ML 1ML VIAL SQ SCH (09:27)
[2021-11-07] MEDS: AMINO ACIDS/PROTEIN HYDROLYS 30 ML LIQUID.PKT PO SCH (09:27)
[2021-11-07] MEDS ORDERED: INSULIN (NOVOLOG) ASPART 100 UNITS/ML 10ML VIAL ONE (11:20)
[2021-11-07 14:46] VITALS: BP 133/84; PULSE 70; TEMP 98.4
== END 2021-11-07 15:31 | disposition home health service (06) ==
LOC: JER 02:38 → UNDOADMOB 04:52 → JERBED 04:52 → INTOOBSV 08:14 → OBSVTOIN 08:14 → JERBED 09:56 → J8W 09:56 → JERBED 11-07 10:11 → J8W 11-07 10:11
PROVIDERS: ADMIT Internal Medicine; ATTEND Internal Medicine
PROC: 3E033GC Introduction of Other Therapeutic Substance into Peripheral Vein, Percutaneous Approach (ICD-10-PCS; principal; 2021-11-07)
PROC: 3E013VG Introduction of Insulin into Subcutaneous Tissue, Percutaneous Approach (ICD-10-PCS; 2021-11-07)
PROC: 3E023GC Introduction of Other Therapeutic Substance into Muscle, Percutaneous Approach (ICD-10-PCS; 2021-11-07)
DX: R41.82 Altered mental status, unspecified (principal); E11.649 Type 2 diabetes mellitus with hypoglycemia without coma; F19.10 Other psychoactive substance abuse, uncomplicated; Z79.891 Long term (current) use of opiate analgesic; B19.20 Unspecified viral hepatitis C without hepatic coma; I10 Essential (primary) hypertension; E78.5 Hyperlipidemia, unspecified; Z87.891 Personal history of nicotine dependence; E66.9 Obesity, unspecified; Z68.32 Body mass index [BMI] 32.0-32.9, adult; R56.9 Unspecified convulsions
CPT/HCPCS: 36415; 71045-TC-FY; 80053; 81003; 82962; 83036; 83605; 83735; 84100; 84484; 85025; 85610; 85730; 87040; 87086; 93005; 93010; 96372; 96374; 99285-25; C9803-CS; G0378; J1644; U0003; U0005

== ENCOUNTER 2022-01-01 13:09 | Inpatient (IN) | payer OTHER ==
[2022-01-01] MEDS ORDERED: LACTATED RINGERS SOLUTION 1000 ML INFUS.BAG IV ONE (14:01)
[2022-01-01] MEDS ORDERED: ACETAMINOPHEN 1000 MG/100 ML BAG IVPB ONE (14:45)
[2022-01-01 15:29] LABS: URINE APPEARANCE CLEAR; URINE BILIRUBIN NEGATIVE (NEGATIVE); URINE COLOR YELLOW; URINE GLUCOSE (UA) 3+ (NEGATIVE); URINE KETONE 4+ (NEGATIVE); URINE LEUK ESTERASE NEGATIVE (NEGATIVE); URINE NITRITE NEGATIVE (NEGATIVE); URINE PROTEIN NEGATIVE (NEGATIVE); URINE UROBILINOGEN 0.2 mg/dL (0.2-1.0)
[2022-01-01 15:32] LABS: BASO % 0.4 % (0-2.0); HEMATOCRIT 34.4 % (35.4-49); HEMOGLOBIN 10.4 GM/dL (11.7-16.9); LYMPH % 7.2 % (8-40); MCH 24.8 pg (25.7-33.7); MCHC 30.3 g/dl (32.0-35.9); MEAN CELL VOLUME 81.7 fl (80-96); MEAN PLT VOLUME 9.3 fl (7.5-11.1); MONO % 9.8 % (3.8-10.2); NEUT % 82.6 % (42.8-82.8); PLATELET COUNT 221 10^3/uL (134-434); RBC 4.21 M/mm3 (4.00-5.60); VENOUS BASE EXCESS -17.2 mmol/L (-2-2); VENOUS O2 SATURATION 79.3 % (70-80); VENOUS PCO2 21.7 mmHg (38-52); VENOUS PH 7.22 (7.310-7.410); WHITE BLOOD COUNT 6.8 K/mm3 (4.0-10.0)
[2022-01-01] MEDS ORDERED: ACETAMINOPHEN INJECTION 100 ML IVPB ONE (15:44)
[2022-01-01 15:47] LABS: CHLORIDE 95 mmol/L (98-107); SODIUM 137 mmol/L (136-145)
[2022-01-01 15:49] LABS: ALBUMIN 3.2 g/dl (3.4-5.0); ANION GAP 30 MMOL/L (8-16); BLOOD UREA NITROGEN 30.1 mg/dL (7-18); CALCIUM 9.1 mg/dL (8.5-10.1); CO2 12 mmol/L (21-32)
[2022-01-01 15:52] LABS: SGPT/ALT 100 U/L (13-61)
[2022-01-01 15:53] LABS: ANISOCYTOSIS 2+; MACROCYTOSIS 0; SGOT/AST 238 U/L (15-37); TARGET CELLS 1+
[2022-01-01 15:54] LABS: BILIRUBIN,TOTAL 0.7 mg/dL (0.2-1); TOT PROT 7.4 g/dl (6.4-8.2)
[2022-01-01 15:55] LABS: ALK PHOS 210 U/L (45-117); GLUCOSE,RANDOM 453 mg/dL (74-106)
[2022-01-01 15:58] LABS: LACTIC ACID 11.1 mmol/L (0.4-2.0)
[2022-01-01] MEDS ORDERED: POTASSIUM CHLORIDE 10 MEQ in SODIUM CHLORIDE 1,000 ML IVPB ONE (16:02)
[2022-01-01] MEDS ORDERED: INSULIN REGULAR HUMAN 100 UNITS/ML *VIAL* (FOR IVP) IVPUSH ONE (16:03)
[2022-01-01] MEDS ORDERED: VANCOMYCIN 1 GM in D5W (PRE-DOCKED) 1,000 MG/250 ML IVPB ONE (16:06)
[2022-01-01] MEDS ORDERED: PIPERACILLIN/TAZOB 3.375 GM 3.375 GM in DEXTROSE 5%-WATER - 50 ML IVPB ONE (16:07)
[2022-01-01] MEDS ORDERED: INSULIN REGULAR 100 UNITS in SODIUM CHLORIDE 99 ML IVPB SCH (16:15)
[2022-01-01] MEDS ORDERED: SODIUM CHLORIDE 0.9% 500 ML INFUS.BAG IV ONE (16:18)
[2022-01-01 16:31] LABS: LIPASE 67 U/L (73-393)
[2022-01-01] MEDS ORDERED: PIPERACILLIN/TAZOB 3.375 GM 3.375 GM/50 ML BAG IVPB ONE ×2 (16:53→16:55)
[2022-01-01] MEDS ORDERED: KCL 10 MEQ IVPB 10 MEQ/100 ML INFUS.BAG IVPB ONE (16:53)
[2022-01-01] MEDS ORDERED: VANCOMYCIN 1 GRAM (PRE-DOCKED) 1,000 MG/250 ML BAG IVPB ONE (16:53)
[2022-01-01] MEDS ORDERED: INSULIN REGULAR HUMAN 100 UNITS/ML *VIAL ONE (16:55)
[2022-01-01] MEDS ORDERED: THIAMINE HCL 200 MG/2 ML VIAL IVPB SCH (17:45)
[2022-01-01] MEDS ORDERED: SODIUM CHLORIDE 1,000 ML IV SCH (18:30)
[2022-01-01] MEDS ORDERED: POTASSIUM CHLORIDE 30 MEQ in SODIUM CHLORIDE 1,000 ML IV SCH (18:31)
[2022-01-01 18:49] LABS: LACTIC ACID 7.1 mmol/L (0.4-2.0)
[2022-01-01] MEDS ORDERED: D5-NS + 20 MEQ KCL - 20 MEQ/1,000 ML INFUS.BAG IV SCH (20:00)
[2022-01-01 20:10] LABS: CALCIUM 8.3 mg/dL (8.5-10.1)
[2022-01-01 20:14] LABS: CREATININE 1.8 mg/dL (0.55-1.3)
[2022-01-01] MEDS: MUPIROCIN 2% TOPICAL OINTMENT FOR DECOLONIZATION NS SCH (22:37)
[2022-01-01] MEDS: HEPARIN NA (PORCINE) 5,000 UNITS/ML 1ML VIAL SQ SCH (22:38)
[2022-01-01] MEDS: CHLORHEXIDINE GLUCONATE 4% CLEANSER FOR DECOLONIZATION TP SCH (22:38)
[2022-01-01] MEDS: THIAMINE HCL 200 MG/2 ML VIAL IVPB SCH (22:43)
[2022-01-02] MEDS ORDERED: Insulin (LOG) Aspart 100 UNITS/ML VIAL SQ ONE (01:02)
[2022-01-02 06:56] LABS: VENOUS BASE EXCESS -7.6 mmol/L (-2-2); VENOUS O2 SATURATION 87.6 % (70-80); VENOUS PCO2 37.3 mmHg (38-52); VENOUS PH 7.304 (7.310-7.410)
[2022-01-02 07:19] LABS: BASO % 0.8 % (0-2.0); EOS % 0.2 % (0-4.5); HEMATOCRIT 29.7 % (35.4-49); HEMOGLOBIN 9.3 GM/dL (11.7-16.9); LYMPH % 19.6 % (8-40); MCH 24.7 pg (25.7-33.7); MCHC 31.2 g/dl (32.0-35.9); MEAN CELL VOLUME 79.2 fl (80-96); MEAN PLT VOLUME 9.1 fl (7.5-11.1); MONO % 9.6 % (3.8-10.2); NEUT % 69.8 % (42.8-82.8); PLATELET COUNT 178 10^3/uL (134-434); RBC 3.75 M/mm3 (4.00-5.60); RDW 23.3 % (11.9-15.9)
[2022-01-02 07:28] LABS: BLOOD UREA NITROGEN 22.3 mg/dL (7-18)
[2022-01-02] MEDS: HEPARIN NA (PORCINE) 5,000 UNITS/ML 1ML VIAL SQ SCH ×3 (07:31→21:46)
[2022-01-02 07:32] LABS: BILIRUBIN,TOTAL 0.7 mg/dL (0.2-1); TOT PROT 5.7 g/dl (6.4-8.2)
[2022-01-02 08:03] LABS: ALBUMIN 2.5 g/dl (3.4-5.0); CREATININE 1.5 mg/dL (0.55-1.3)
[2022-01-02 08:03] LABS: LACTIC ACID 6.2 mmol/L (0.4-2.0)
[2022-01-02] MEDS ORDERED: INSULIN (LEVEMIR) 100 UNITS/ML UNITS SQ SCH ×3 (08:16→12:21)
[2022-01-02] MEDS: THIAMINE HCL 200 MG/2 ML VIAL IVPB SCH (10:39)
[2022-01-02] MEDS: MUPIROCIN 2% TOPICAL OINTMENT FOR DECOLONIZATION NS SCH ×2 (10:40→21:47)
[2022-01-02] MEDS: LABETALOL HCL 100 MG TABLET (FP) PO SCH ×2 (10:40→21:46)
[2022-01-02] MEDS ORDERED: INSULIN REGULAR HUMAN 100 UNITS/ML *VIAL SQ ONE (10:48)
[2022-01-02] MEDS ORDERED: INSULIN (NOVOLOG) ASPART 100 UNITS/ML 10ML VIAL SQ ONE (10:53)
[2022-01-02] MEDS ORDERED: INSULIN SLIDING SCALE (NOVOLOG) 1 VIAL SQ SCH (11:00)
[2022-01-02 12:29] LABS: CHLORIDE 101 mmol/L (98-107); SODIUM 135 mmol/L (136-145)
[2022-01-02 12:30] LABS: ANION GAP 17 MMOL/L (8-16); CALCIUM 7.9 mg/dL (8.5-10.1); CO2 17 mmol/L (21-32)
[2022-01-02 12:31] LABS: BLOOD UREA NITROGEN 22.6 mg/dL (7-18)
[2022-01-02 12:34] LABS: CREATININE 1.4 mg/dL (0.55-1.3)
[2022-01-02 12:38] LABS: GLUCOSE,RANDOM 440 mg/dL (74-106)
[2022-01-02] MEDS ORDERED: DEXTROSE 50%-WATER - 25 GM/50 ML VIAL IVPUSH PRN ×2 (12:44→22:00)
[2022-01-02] MEDS ORDERED: SODIUM CHLORIDE 1,000 ML IV SCH (12:45)
[2022-01-02] MEDS ORDERED: LACTATED RINGERS SOLUTION 1,000 ML/1,000 ML INFUS.BAG IV SCH (13:30)
[2022-01-02] MEDS ORDERED: INSULIN REGULAR HUMAN 100 UNITS/ML *VIAL* (FOR IVP) IVPUSH ONE (13:45)
[2022-01-02] MEDS ORDERED: INSULIN REGULAR 100 UNITS in SODIUM CHLORIDE 99 ML IVPB SCH (13:45)
[2022-01-02] MEDS ORDERED: D5-LR+20 MEQ KCL - 20 MEQ/1,000 ML INFUS.BAG IV SCH (14:45)
[2022-01-02] MEDS: methaDONE HCL 10 MG TABLET PO SCH (14:54)
[2022-01-02 16:11] LABS: CALCIUM 8.3 mg/dL (8.5-10.1)
[2022-01-02 16:12] LABS: ALBUMIN 2.6 g/dl (3.4-5.0); BLOOD UREA NITROGEN 19.2 mg/dL (7-18)
[2022-01-02 16:15] LABS: CREATININE 1.4 mg/dL (0.55-1.3)
[2022-01-02 16:17] LABS: BILIRUBIN,TOTAL 0.4 mg/dL (0.2-1); TOT PROT 5.9 g/dl (6.4-8.2)
[2022-01-02] MEDS: POTASSIUM CHLORIDE 10 MEQ in SODIUM CHLORIDE 0.45% 1,000 ML IVPB SCH (20:43)
[2022-01-02] MEDS: CHLORHEXIDINE GLUCONATE 4% CLEANSER FOR DECOLONIZATION TP SCH (21:46)
[2022-01-02] MEDS: ROSUVASTATIN CA 5 MG TABLET PO SCH (21:46)
[2022-01-02 21:49] LABS: BLOOD UREA NITROGEN 15.2 mg/dL (7-18)
[2022-01-02 21:51] LABS: CALCIUM 7.8 mg/dL (8.5-10.1)
[2022-01-02 21:55] LABS: CREATININE 1.2 mg/dL (0.55-1.3)
[2022-01-02] MEDS ORDERED: DEXTROSE 50%-WATER - 25 GM/50 ML VIAL IVPUSH ONE (21:59)
[2022-01-02] MEDS ORDERED: DEXTROSE 50%-WATER 25 GM/50 ML DISP.SYRIN ONE (22:00)
[2022-01-02 23:47] LABS: BLOOD UREA NITROGEN 13.5 mg/dL (7-18); CALCIUM 7.5 mg/dL (8.5-10.1)
[2022-01-02 23:50] LABS: CREATININE 1.1 mg/dL (0.55-1.3)
[2022-01-03] MEDS ORDERED: DEXTROSE 50%-WATER 25 GM/50 ML DISP.SYRIN ONE ×2 (02:08→06:22)
[2022-01-03 02:53] LABS: CALCIUM 7.5 mg/dL (8.5-10.1)
[2022-01-03 02:54] LABS: BLOOD UREA NITROGEN 12.3 mg/dL (7-18)
[2022-01-03] MEDS: HEPARIN NA (PORCINE) 5,000 UNITS/ML 1ML VIAL SQ SCH ×3 (06:24→22:02)
[2022-01-03] MEDS ORDERED: DEXTROSE 50%-WATER - 25 GM/50 ML VIAL IVPUSH ONE (06:26)
[2022-01-03] MEDS: INSULIN SLIDING SCALE (NOVOLOG) 1 VIAL SQ SCH ×4 (06:28→22:04)
[2022-01-03] MEDS ORDERED: INSULIN (LEVEMIR) 100 UNITS/ML UNITS SQ SCH (07:00)
[2022-01-03] MEDS: POTASSIUM CHLORIDE 10 MEQ in SODIUM CHLORIDE 0.45% 1,000 ML IVPB SCH (07:45)
[2022-01-03 08:16] LABS: CALCIUM 8.3 mg/dL (8.5-10.1)
[2022-01-03 08:17] LABS: BLOOD UREA NITROGEN 10.6 mg/dL (7-18)
[2022-01-03] MEDS: MUPIROCIN 2% TOPICAL OINTMENT FOR DECOLONIZATION NS SCH ×2 (09:26→22:04)
[2022-01-03] MEDS: methaDONE HCL 10 MG TABLET PO SCH (09:27)
[2022-01-03] MEDS: THIAMINE HCL 200 MG/2 ML VIAL IVPB SCH (09:28)
[2022-01-03] MEDS: LABETALOL HCL 100 MG TABLET (FP) PO SCH ×2 (09:29→22:03)
[2022-01-03] MEDS: ROSUVASTATIN CA 5 MG TABLET PO SCH (22:03)
[2022-01-03] MEDS: CHLORHEXIDINE GLUCONATE 4% CLEANSER FOR DECOLONIZATION TP SCH (22:03)
[2022-01-04] MEDS: HEPARIN NA (PORCINE) 5,000 UNITS/ML 1ML VIAL SQ SCH ×3 (06:00→21:18)
[2022-01-04] MEDS: INSULIN SLIDING SCALE (NOVOLOG) 1 VIAL SQ SCH ×4 (06:01→21:17)
[2022-01-04] MEDS: methaDONE HCL 10 MG TABLET PO SCH (09:25)
[2022-01-04] MEDS: LABETALOL HCL 100 MG TABLET (FP) PO SCH ×2 (09:25→21:19)
[2022-01-04] MEDS: MULTIVITAMINS (DAILY MVI) TABLET (FP) PO SCH (09:25)
[2022-01-04] MEDS: MUPIROCIN 2% TOPICAL OINTMENT FOR DECOLONIZATION NS SCH ×2 (09:25→21:18)
[2022-01-04] MEDS: THIAMINE HCL 200 MG/2 ML VIAL IVPB SCH (09:25)
[2022-01-04] MEDS: CHLORHEXIDINE GLUCONATE 4% CLEANSER FOR DECOLONIZATION TP SCH (21:19)
[2022-01-04] MEDS: ROSUVASTATIN CA 5 MG TABLET PO SCH (21:19)
[2022-01-04] MEDS: VANCOMYCIN 1 GM/200 ML PREMIX BAG IVPB SCH (22:32)
[2022-01-05] MEDS: HEPARIN NA (PORCINE) 5,000 UNITS/ML 1ML VIAL SQ SCH ×3 (05:20→21:47)
[2022-01-05] MEDS: INSULIN SLIDING SCALE (NOVOLOG) 1 VIAL SQ SCH ×5 (06:13→21:48)
[2022-01-05] MEDS: INSULIN (LEVEMIR) 100 UNITS/ML UNITS SQ SCH (06:13)
[2022-01-05 07:35] LABS: EOS % 2.1 % (0-4.5); HEMATOCRIT 30.3 % (35.4-49); HEMOGLOBIN 9.7 GM/dL (11.7-16.9); MCH 25.2 pg (25.7-33.7); MEAN CELL VOLUME 78.8 fl (80-96); MEAN PLT VOLUME 9.5 fl (7.5-11.1); MONO % 7.2 % (3.8-10.2); NEUT % 64.7 % (42.8-82.8); PLATELET COUNT 156 10^3/uL (134-434); RBC 3.84 M/mm3 (4.00-5.60); RDW 23.7 % (11.9-15.9); WHITE BLOOD COUNT 3.5 K/mm3 (4.0-10.0)
[2022-01-05 07:58] LABS: CALCIUM 8.4 mg/dL (8.5-10.1)
[2022-01-05 07:59] LABS: ALBUMIN 2.7 g/dl (3.4-5.0); BLOOD UREA NITROGEN 17.6 mg/dL (7-18)
[2022-01-05 08:02] LABS: CREATININE 1.1 mg/dL (0.55-1.3)
[2022-01-05 08:03] LABS: BILIRUBIN,TOTAL 0.6 mg/dL (0.2-1); TOT PROT 6.3 g/dl (6.4-8.2)
[2022-01-05 09:08] LABS: ANISOCYTOSIS 3+; MACROCYTOSIS 0
[2022-01-05] MEDS: MUPIROCIN 2% TOPICAL OINTMENT FOR DECOLONIZATION NS SCH (10:00)
[2022-01-05] MEDS: methaDONE HCL 10 MG TABLET PO SCH (10:01)
[2022-01-05] MEDS: MULTIVITAMINS (DAILY MVI) TABLET (FP) PO SCH (10:02)
[2022-01-05] MEDS: VANCOMYCIN 1 GM/200 ML PREMIX BAG IVPB SCH (10:02)
[2022-01-05] MEDS: LABETALOL HCL 100 MG TABLET (FP) PO SCH ×2 (10:02→21:47)
[2022-01-05] MEDS: THIAMINE HCL 200 MG/2 ML VIAL IVPB SCH (10:03)
[2022-01-05] MEDS ORDERED: INSULIN (LEVEMIR) 100 UNITS/ML UNITS SQ SCH (22:00)
[2022-01-05] MEDS ORDERED: VANCOMYCIN 1 GM/200 ML PREMIX BAG IVPB SCH (22:00)
[2022-01-05] MEDS ORDERED: CHLORHEXIDINE GLUCONATE 4% CLEANSER FOR DECOLONIZATION TP SCH (22:00)
[2022-01-05] MEDS ORDERED: ROSUVASTATIN CA 5 MG TABLET PO SCH (22:00)
[2022-01-05] MEDS ORDERED: MUPIROCIN 2% TOPICAL OINTMENT FOR DECOLONIZATION NS SCH (22:00)
[2022-01-06] MEDS: HEPARIN NA (PORCINE) 5,000 UNITS/ML 1ML VIAL SQ SCH ×3 (06:53→21:19)
[2022-01-06] MEDS: INSULIN SLIDING SCALE (NOVOLOG) 1 VIAL SQ SCH ×4 (09:08→21:20)
[2022-01-06 09:51] LABS: BASO % 0.7 % (0-2.0); EOS % 0.7 % (0-4.5); HEMATOCRIT 30.5 % (35.4-49); HEMOGLOBIN 9.5 GM/dL (11.7-16.9); LYMPH % 22.5 % (8-40); MCH 24.9 pg (25.7-33.7); MCHC 31.1 g/dl (32.0-35.9); MEAN CELL VOLUME 79.9 fl (80-96); MEAN PLT VOLUME 9.6 fl (7.5-11.1); MONO % 10.5 % (3.8-10.2); NEUT % 65.6 % (42.8-82.8); PLATELET COUNT 159 10^3/uL (134-434); RBC 3.81 M/mm3 (4.00-5.60); RDW 24.1 % (11.9-15.9); WHITE BLOOD COUNT 3.8 K/mm3 (4.0-10.0)
[2022-01-06 10:22] LABS: CALCIUM 8.7 mg/dL (8.5-10.1)
[2022-01-06 10:23] LABS: ALBUMIN 2.7 g/dl (3.4-5.0); BLOOD UREA NITROGEN 15.9 mg/dL (7-18)
[2022-01-06 10:28] LABS: BILIRUBIN,TOTAL 0.8 mg/dL (0.2-1); TOT PROT 6.2 g/dl (6.4-8.2)
[2022-01-06] MEDS: INSULIN (LEVEMIR) 100 UNITS/ML UNITS SQ SCH ×2 (10:41→21:19)
[2022-01-06] MEDS: VANCOMYCIN/WATER 1250 MG 1,250 MG/250 ML BAG IVPB SCH (10:47)
[2022-01-06] MEDS: THIAMINE HCL 200 MG/2 ML VIAL IVPB SCH (10:48)
[2022-01-06] MEDS: MULTIVITAMINS (DAILY MVI) TABLET (FP) PO SCH (10:49)
[2022-01-06] MEDS: LABETALOL HCL 100 MG TABLET (FP) PO SCH ×2 (10:49→21:20)
[2022-01-06] MEDS: methaDONE HCL 10 MG TABLET PO SCH (10:49)
[2022-01-06] MEDS ORDERED: SODIUM CHLORIDE 1,000 ML IV SCH (15:30)
[2022-01-07] MEDS: INSULIN SLIDING SCALE (NOVOLOG) 1 VIAL SQ SCH ×4 (06:33→21:56)
[2022-01-07] MEDS: INSULIN (LEVEMIR) 100 UNITS/ML UNITS SQ SCH ×2 (06:35→21:55)
[2022-01-07] MEDS: HEPARIN NA (PORCINE) 5,000 UNITS/ML 1ML VIAL SQ SCH ×3 (06:35→21:56)
[2022-01-07] MEDS: LABETALOL HCL 100 MG TABLET (FP) PO SCH ×2 (09:43→22:04)
[2022-01-07] MEDS: methaDONE HCL 10 MG TABLET PO SCH (09:43)
[2022-01-07] MEDS: VANCOMYCIN/WATER 1250 MG 1,250 MG/250 ML BAG IVPB SCH (09:43)
[2022-01-07] MEDS: MULTIVITAMINS (DAILY MVI) TABLET (FP) PO SCH (09:43)
[2022-01-07] MEDS: THIAMINE HCL 200 MG/2 ML VIAL IVPB SCH (09:43)
[2022-01-07 10:42] LABS: INR 0.95 (0.83-1.09); PROTHROMBIN TIME (PATIENT) 10.9 SEC (9.7-13.0)
[2022-01-07 11:02] LABS: BILIRUBIN,DIRECT 0.2 mg/dL (0.0-0.2)
[2022-01-07 11:05] LABS: ALBUMIN 2.5 g/dl (3.4-5.0)
[2022-01-07 11:06] LABS: BILIRUBIN,TOTAL 0.4 mg/dL (0.2-1)
[2022-01-07 11:10] LABS: TOT PROT 6.1 g/dl (6.4-8.2)
[2022-01-08] MEDS: HEPARIN NA (PORCINE) 5,000 UNITS/ML 1ML VIAL SQ SCH ×3 (05:50→21:35)
[2022-01-08] MEDS: INSULIN SLIDING SCALE (NOVOLOG) 1 VIAL SQ SCH ×4 (06:04→21:35)
[2022-01-08] MEDS: INSULIN (LEVEMIR) 100 UNITS/ML UNITS SQ SCH ×2 (06:05→21:39)
[2022-01-08 10:03] LABS: CALCIUM 8.6 mg/dL (8.5-10.1)
[2022-01-08 10:04] LABS: ALBUMIN 2.7 g/dl (3.4-5.0); BLOOD UREA NITROGEN 17.8 mg/dL (7-18)
[2022-01-08 10:08] LABS: BILIRUBIN,TOTAL 0.6 mg/dL (0.2-1); TOT PROT 6.5 g/dl (6.4-8.2)
[2022-01-08] MEDS: methaDONE HCL 10 MG TABLET PO SCH (10:11)
[2022-01-08] MEDS: THIAMINE HCL 200 MG/2 ML VIAL IVPB SCH (10:11)
[2022-01-08] MEDS: MULTIVITAMINS (DAILY MVI) TABLET (FP) PO SCH (10:11)
[2022-01-08] MEDS: LABETALOL HCL 100 MG TABLET (FP) PO SCH ×2 (10:11→21:35)
[2022-01-08] MEDS ORDERED: INSULIN SLIDING SCALE (NOVOLOG) 1 VIAL SQ ONE ×2 (12:16→19:13)
[2022-01-08] MEDS ORDERED: SODIUM ZIRCONIUM CYCLOSILICATE (LOKELMA) 5 GM PACKET PO SCH (12:30)
[2022-01-08] MEDS ORDERED: SODIUM CHLORIDE 1,000 ML IV SCH (12:30)
[2022-01-09] MEDS: HEPARIN NA (PORCINE) 5,000 UNITS/ML 1ML VIAL SQ SCH ×3 (05:42→21:36)
[2022-01-09] MEDS: INSULIN SLIDING SCALE (NOVOLOG) 1 VIAL SQ SCH ×4 (06:08→21:40)
[2022-01-09] MEDS: INSULIN (LEVEMIR) 100 UNITS/ML UNITS SQ SCH ×2 (06:09→21:38)
[2022-01-09 10:21] LABS: ALBUMIN 2.5 g/dl (3.4-5.0); BLOOD UREA NITROGEN 20.7 mg/dL (7-18); CALCIUM 8.4 mg/dL (8.5-10.1)
[2022-01-09 10:24] LABS: CREATININE 1.1 mg/dL (0.55-1.3)
[2022-01-09 10:25] LABS: BILIRUBIN,TOTAL 0.5 mg/dL (0.2-1); TOT PROT 6.1 g/dl (6.4-8.2)
[2022-01-09] MEDS: LABETALOL HCL 100 MG TABLET (FP) PO SCH ×2 (10:45→21:39)
[2022-01-09] MEDS: MULTIVITAMINS (DAILY MVI) TABLET (FP) PO SCH (10:45)
[2022-01-09] MEDS: methaDONE HCL 10 MG TABLET PO SCH (10:45)
[2022-01-09] MEDS: THIAMINE HCL 200 MG/2 ML VIAL IVPB SCH (10:45)
[2022-01-09] MEDS: SODIUM CHLORIDE 1,000 ML IV SCH (12:52)
[2022-01-10] MEDS: INSULIN SLIDING SCALE (NOVOLOG) 1 VIAL SQ SCH ×4 (06:38→21:26)
[2022-01-10] MEDS: INSULIN (LEVEMIR) 100 UNITS/ML UNITS SQ SCH ×2 (06:38→22:20)
[2022-01-10] MEDS: HEPARIN NA (PORCINE) 5,000 UNITS/ML 1ML VIAL SQ SCH ×3 (06:41→21:24)
[2022-01-10] MEDS ORDERED: INSULIN (LEVEMIR) 100 UNITS/ML UNITS SQ SCH ×2 (07:00→23:09)
[2022-01-10] MEDS: methaDONE HCL 10 MG TABLET PO SCH (09:45)
[2022-01-10] MEDS: MULTIVITAMINS (DAILY MVI) TABLET (FP) PO SCH (09:45)
[2022-01-10] MEDS: THIAMINE HCL 200 MG/2 ML VIAL IVPB SCH (09:46)
[2022-01-10] MEDS: LABETALOL HCL 100 MG TABLET (FP) PO SCH ×2 (09:46→21:31)
[2022-01-10 10:09] LABS: BLOOD UREA NITROGEN 19.3 mg/dL (7-18); CALCIUM 8.4 mg/dL (8.5-10.1)
[2022-01-10 10:10] LABS: ALBUMIN 2.6 g/dl (3.4-5.0)
[2022-01-10 10:13] LABS: CREATININE 0.9 mg/dL (0.55-1.3)
[2022-01-10 10:15] LABS: BILIRUBIN,TOTAL 0.3 mg/dL (0.2-1); TOT PROT 6.1 g/dl (6.4-8.2)
[2022-01-10] MEDS: SODIUM CHLORIDE 1,000 ML IV SCH (13:51)
[2022-01-10] MEDS ORDERED: INSULIN SLIDING SCALE (NOVOLOG) 1 VIAL SQ SCH (23:10)
[2022-01-11] MEDS: INSULIN SLIDING SCALE (NOVOLOG) 1 VIAL SQ SCH ×2 (06:10→11:00)
[2022-01-11] MEDS: HEPARIN NA (PORCINE) 5,000 UNITS/ML 1ML VIAL SQ SCH ×2 (06:49→13:29)
[2022-01-11] MEDS ORDERED: INSULIN (LEVEMIR) 100 UNITS/ML UNITS SQ SCH (07:00)
[2022-01-11] MEDS: MULTIVITAMINS (DAILY MVI) TABLET (FP) PO SCH (09:08)
[2022-01-11] MEDS: methaDONE HCL 10 MG TABLET PO SCH (09:08)
[2022-01-11] MEDS: LABETALOL HCL 100 MG TABLET (FP) PO SCH (09:08)
[2022-01-11] MEDS: THIAMINE HCL 200 MG/2 ML VIAL IVPB SCH (09:13)
[2022-01-11 10:47] VITALS: BP 107/65; PULSE 86; TEMP 98.3
== END 2022-01-11 15:13 | disposition home or self-care (01) | DRG 637 ==
LOC: JER 13:09 → JERBED 16:26 → JICU 19:28 → J5S 01-05 16:36
PROVIDERS: ADMIT Internal Medicine Pulmonary Disease; ATTEND Internal Medicine
DX: E11.10 Type 2 diabetes mellitus with ketoacidosis without coma (principal); G93.41 Metabolic encephalopathy; N17.9 Acute kidney failure, unspecified; R78.81 Bacteremia; I10 Essential (primary) hypertension; E78.5 Hyperlipidemia, unspecified; K76.9 Liver disease, unspecified; K76.0 Fatty (change of) liver, not elsewhere classified; Z86.19 Personal history of other infectious and parasitic diseases; Z21 Asymptomatic human immunodeficiency virus [HIV] infection status; E86.0 Dehydration
CPT/HCPCS: 36415; 71045-TC-FY; 76705-TC; 80048; 80053; 80076; 81003; 82010; 82105; 82728; 82803; 82962; 82977; 83036; 83540; 83550; 83605; 83690; 84484; 85025; 85027; 85610; 86709; 87040; 87340; 87516; 87522; 93005; 93010; 99291; C9803-CS; J1644; U0003; U0005

== ENCOUNTER 2022-03-02 07:40 | Inpatient (IN) | payer OTHER ==
[2022-03-02] MEDS ORDERED: SODIUM CHLORIDE 0.9% 500 ML INFUS.BAG IV ONE ×3 (07:44→11:27)
[2022-03-02 09:01] LABS: VENOUS BASE EXCESS -19.9 mmol/L (-2-2); VENOUS O2 SATURATION 62.3 % (70-80); VENOUS PCO2 25.1 mmHg (38-52)
[2022-03-02 09:03] LABS: VENOUS PH 7.118 (7.310-7.410)
[2022-03-02 09:25] LABS: BASO % 0.3 % (0-2.0); HEMATOCRIT 40.8 % (35.4-49); HEMOGLOBIN 11.9 GM/dL (11.7-16.9); LYMPH % 13.2 % (8-40); MCH 25.4 pg (25.7-33.7); MCHC 29.1 g/dl (32.0-35.9); MEAN CELL VOLUME 87.6 fl (80-96); MEAN PLT VOLUME 10.9 fl (7.5-11.1); MONO % 5.6 % (3.8-10.2); NEUT % 80.9 % (42.8-82.8); PLATELET COUNT 244 10^3/uL (134-434); RBC 4.67 M/mm3 (4.00-5.60); RDW 17.9 % (11.9-15.9); WHITE BLOOD COUNT 17.7 K/mm3 (4.0-10.0)
[2022-03-02 09:28] LABS: CHLORIDE 92 mmol/L (98-107); SODIUM 131 mmol/L (136-145)
[2022-03-02 09:30] LABS: BLOOD UREA NITROGEN 38.9 mg/dL (7-18); CO2 10 mmol/L (21-32)
[2022-03-02 09:31] LABS: ALBUMIN 4.2 g/dl (3.4-5.0)
[2022-03-02 09:32] LABS: CREATININE 2.4 mg/dL (0.55-1.3)
[2022-03-02 09:34] LABS: SGOT/AST 103 U/L (15-37); SGPT/ALT 56 U/L (13-61)
[2022-03-02 09:35] LABS: BILIRUBIN,TOTAL 0.9 mg/dL (0.2-1); TOT PROT 9.4 g/dl (6.4-8.2)
[2022-03-02 09:37] LABS: ALK PHOS 145 U/L (45-117)
[2022-03-02 09:38] LABS: ANION GAP 30 MMOL/L (8-16); GLUCOSE,RANDOM 793 mg/dL (74-106)
[2022-03-02 11:16] LABS: URINE APPEARANCE CLEAR; URINE BILIRUBIN NEGATIVE (NEGATIVE); URINE COLOR YELLOW; URINE GLUCOSE (UA) 3+ (NEGATIVE); URINE KETONE 3+ (NEGATIVE); URINE LEUK ESTERASE NEGATIVE (NEGATIVE); URINE NITRITE NEGATIVE (NEGATIVE); URINE PROTEIN NEGATIVE (NEGATIVE); URINE UROBILINOGEN 0.2 mg/dL (0.2-1.0)
[2022-03-02 11:23] LABS: CHLORIDE 101 mmol/L (98-107); SODIUM 139 mmol/L (136-145)
[2022-03-02 11:25] LABS: ANION GAP 25 MMOL/L (8-16); CALCIUM 9.1 mg/dL (8.5-10.1); CO2 14 mmol/L (21-32)
[2022-03-02 11:26] LABS: BLOOD UREA NITROGEN 36.7 mg/dL (7-18)
[2022-03-02 11:29] LABS: CREATININE 2.1 mg/dL (0.55-1.3)
[2022-03-02] MEDS ORDERED: SODIUM CHLORIDE 1,000 ML IV STA (11:39)
[2022-03-02 11:40] LABS: GLUCOSE,RANDOM 740 mg/dL (74-106)
[2022-03-02] MEDS ORDERED: INSULIN REGULAR 100 UNITS in SODIUM CHLORIDE 99 ML IVPB SCH (11:45)
[2022-03-02 12:13] LABS: PHENCYCLIDINE,URINE NEGATIVE (NEGATIVE)
[2022-03-02 12:14] LABS: OPIATES, URI NEGATIVE (NEGATIVE)
[2022-03-02 12:16] LABS: COCAINE, UR NEGATIVE (NEGATIVE); METHADONE, UR POSITIVE (NEGATIVE); URINE AMPHETAMINES NEGATIVE (NEGATIVE); URINE BARBITURATES NEGATIVE (NEGATIVE); URINE BENZODIAZEPINES NEGATIVE (NEGATIVE)
[2022-03-02] MEDS ORDERED: SODIUM CHLORIDE 1,000 ML IV SCH (13:45)
[2022-03-02] MEDS: HEPARIN NA (PORCINE) 5,000 UNITS/ML 1ML VIAL SQ SCH ×2 (14:52→21:50)
[2022-03-02] MEDS ORDERED: DEXTROSE 5%-0.45% SALINE 1,000 ML IV SCH (15:15)
[2022-03-02 16:06] LABS: CHLORIDE 111 mmol/L (98-107); SODIUM 146 mmol/L (136-145)
[2022-03-02 16:09] LABS: CALCIUM 8.7 mg/dL (8.5-10.1)
[2022-03-02 16:10] LABS: ANION GAP 19 MMOL/L (8-16); CO2 16 mmol/L (21-32)
[2022-03-02 16:13] LABS: CREATININE 1.8 mg/dL (0.55-1.3)
[2022-03-02 16:16] LABS: GLUCOSE,RANDOM 413 mg/dL (74-106)
[2022-03-02 16:44] VITALS: BMI 16.8
[2022-03-02 18:26] LABS: CALCIUM 9.1 mg/dL (8.5-10.1)
[2022-03-02 18:27] LABS: BLOOD UREA NITROGEN 33.5 mg/dL (7-18)
[2022-03-02 18:30] LABS: CREATININE 1.6 mg/dL (0.55-1.3)
[2022-03-02] MEDS: INSULIN (LEVEMIR) 100 UNITS/ML UNITS SQ SCH ×2 (19:05→21:53)
[2022-03-02] MEDS ORDERED: POTASSIUM CHLORIDE TABS 20 MEQ TABLET.ER (FP) PO ONE (19:08)
[2022-03-02] MEDS: MUPIROCIN 2% TOPICAL OINTMENT FOR DECOLONIZATION NS SCH (21:49)
[2022-03-02] MEDS: CHLORHEXIDINE GLUCONATE 4% CLEANSER FOR DECOLONIZATION TP SCH (21:50)
[2022-03-02] MEDS: INSULIN SLIDING SCALE (NOVOLOG) 1 VIAL SQ SCH (21:50)
[2022-03-02] MEDS: LABETALOL HCL 100 MG TABLET (FP) PO SCH (21:50)
[2022-03-02] MEDS: ROSUVASTATIN CA 5 MG TABLET PO SCH (21:50)
[2022-03-02] MEDS ORDERED: INSULIN (LEVEMIR) 100 UNITS/ML UNITS SQ SCH (22:00)
[2022-03-02 23:07] LABS: BASO % 0.3 % (0-2.0); EOS % 0.4 % (0-4.5); HEMOGLOBIN 9.8 GM/dL (11.7-16.9); LYMPH % 12.3 % (8-40); MCH 25.3 pg (25.7-33.7); MCHC 30.8 g/dl (32.0-35.9); MEAN CELL VOLUME 82.3 fl (80-96); MEAN PLT VOLUME 9.4 fl (7.5-11.1); MONO % 9.7 % (3.8-10.2); NEUT % 77.3 % (42.8-82.8); PLATELET COUNT 179 10^3/uL (134-434); RBC 3.89 M/mm3 (4.00-5.60); RDW 16.8 % (11.9-15.9); WHITE BLOOD COUNT 13.2 K/mm3 (4.0-10.0)
[2022-03-03] MEDS: methaDONE HCL 10 MG TABLET PO SCH (05:49)
[2022-03-03] MEDS: INSULIN (LEVEMIR) 100 UNITS/ML UNITS SQ SCH ×2 (06:02→22:10)
[2022-03-03] MEDS: HEPARIN NA (PORCINE) 5,000 UNITS/ML 1ML VIAL SQ SCH ×3 (06:03→22:10)
[2022-03-03] MEDS: INSULIN SLIDING SCALE (NOVOLOG) 1 VIAL SQ SCH ×4 (06:03→22:10)
[2022-03-03 07:15] LABS: BASO % 0.3 % (0-2.0); HEMATOCRIT 33.9 % (35.4-49); HEMOGLOBIN 10.5 GM/dL (11.7-16.9); LYMPH % 12.3 % (8-40); MCH 25.3 pg (25.7-33.7); MCHC 30.9 g/dl (32.0-35.9); MEAN CELL VOLUME 81.9 fl (80-96); MEAN PLT VOLUME 9.9 fl (7.5-11.1); MONO % 7.2 % (3.8-10.2); NEUT % 80.2 % (42.8-82.8); PLATELET COUNT 148 10^3/uL (134-434); RBC 4.13 M/mm3 (4.00-5.60); RDW 17.1 % (11.9-15.9)
[2022-03-03 07:32] LABS: MAGNESIUM 2.1 mg/dL (1.8-2.4)
[2022-03-03 07:35] LABS: PHOSPHOROUS 2.3 mg/dL (2.5-4.9)
[2022-03-03 08:49] LABS: ALBUMIN 3.4 g/dl (3.4-5.0); BLOOD UREA NITROGEN 23.8 mg/dL (7-18); CALCIUM 8.5 mg/dL (8.5-10.1)
[2022-03-03 08:52] LABS: CREATININE 1.3 mg/dL (0.55-1.3)
[2022-03-03 08:54] LABS: BILIRUBIN,TOTAL 0.4 mg/dL (0.2-1)
[2022-03-03 08:58] LABS: TOT PROT 6.8 g/dl (6.4-8.2)
[2022-03-03] MEDS: RANOLAZINE E.R. 500 MG TABLET (FP) PO SCH (09:44)
[2022-03-03] MEDS: PANTOPRAZOLE 40 MG TABLET PO SCH (09:45)
[2022-03-03] MEDS: LABETALOL HCL 100 MG TABLET (FP) PO SCH ×2 (09:46→22:09)
[2022-03-03] MEDS: MUPIROCIN 2% TOPICAL OINTMENT FOR DECOLONIZATION NS SCH ×2 (09:46→22:09)
[2022-03-03] MEDS ORDERED: LOSARTAN POTASSIUM 50 MG TABLET PO SCH (10:00)
[2022-03-03] MEDS ORDERED: INSULIN (LEVEMIR) 100 UNITS/ML UNITS SQ ONE (12:45)
[2022-03-03] MEDS ORDERED: RAPID SEQUENCE INTUBATION KIT NR ONE (16:48)
[2022-03-03] MEDS: ROSUVASTATIN CA 5 MG TABLET PO SCH (22:09)
[2022-03-03] MEDS: CHLORHEXIDINE GLUCONATE 4% CLEANSER FOR DECOLONIZATION TP SCH (22:10)
[2022-03-04] MEDS: HEPARIN NA (PORCINE) 5,000 UNITS/ML 1ML VIAL SQ SCH ×2 (06:20→13:53)
[2022-03-04] MEDS: INSULIN SLIDING SCALE (NOVOLOG) 1 VIAL SQ SCH ×3 (06:20→15:49)
[2022-03-04] MEDS: methaDONE HCL 10 MG TABLET PO SCH (06:20)
[2022-03-04] MEDS: INSULIN (LEVEMIR) 100 UNITS/ML UNITS SQ SCH (06:20)
[2022-03-04] MEDS ORDERED: LOSARTAN POTASSIUM 50 MG TABLET PO SCH (07:10)
[2022-03-04] MEDS ORDERED: LABETALOL HCL 100 MG TABLET (FP) PO SCH (07:10)
[2022-03-04 08:29] LABS: BASO % 0.7 % (0-2.0); EOS % 0.2 % (0-4.5); HEMATOCRIT 32.7 % (35.4-49); HEMOGLOBIN 10.5 GM/dL (11.7-16.9); LYMPH % 22.7 % (8-40); MCH 25.6 pg (25.7-33.7); MCHC 31.9 g/dl (32.0-35.9); MEAN CELL VOLUME 80.3 fl (80-96); MEAN PLT VOLUME 10.1 fl (7.5-11.1); MONO % 6.5 % (3.8-10.2); NEUT % 69.9 % (42.8-82.8); PLATELET COUNT 153 10^3/uL (134-434); RBC 4.08 M/mm3 (4.00-5.60); WHITE BLOOD COUNT 8.7 K/mm3 (4.0-10.0)
[2022-03-04 08:43] LABS: CALCIUM 8.9 mg/dL (8.5-10.1)
[2022-03-04 08:44] LABS: ALBUMIN 3.2 g/dl (3.4-5.0)
[2022-03-04 08:47] LABS: CREATININE 0.9 mg/dL (0.55-1.3); PHOSPHOROUS 1.9 mg/dL (2.5-4.9)
[2022-03-04 08:48] LABS: BILIRUBIN,TOTAL 0.4 mg/dL (0.2-1); TOT PROT 6.7 g/dl (6.4-8.2)
[2022-03-04] MEDS: MUPIROCIN 2% TOPICAL OINTMENT FOR DECOLONIZATION NS SCH (10:26)
[2022-03-04] MEDS: PANTOPRAZOLE 40 MG TABLET PO SCH (10:27)
[2022-03-04] MEDS: RANOLAZINE E.R. 500 MG TABLET (FP) PO SCH (10:27)
[2022-03-04 13:38] VITALS: TEMP 98
[2022-03-04 15:37] VITALS: BP 133/85; PULSE 77; RESP 18
== END 2022-03-04 16:35 | disposition home or self-care (01) | DRG 638 ==
LOC: JER 07:40 → JERBED 11:33 → JICU 13:30
PROVIDERS: ADMIT Internal Medicine; ATTEND Internal Medicine
DX: E11.10 Type 2 diabetes mellitus with ketoacidosis without coma (principal); N17.9 Acute kidney failure, unspecified; F11.20 Opioid dependence, uncomplicated; I10 Essential (primary) hypertension; E11.65 Type 2 diabetes mellitus with hyperglycemia; K59.00 Constipation, unspecified; E87.5 Hyperkalemia; B19.20 Unspecified viral hepatitis C without hepatic coma; F19.10 Other psychoactive substance abuse, uncomplicated; I25.10 Atherosclerotic heart disease of native coronary artery without angina pectoris; E78.5 Hyperlipidemia, unspecified; D63.8 Anemia in other chronic diseases classified elsewhere; D72.829 Elevated white blood cell count, unspecified; E86.0 Dehydration; Z21 Asymptomatic human immunodeficiency virus [HIV] infection status; Z86.73 Personal history of transient ischemic attack (TIA), and cerebral infarction without residual deficits
CPT/HCPCS: 36415; 71045-TC-FY; 80048; 80053; 80307; 81003; 82010; 82803; 82962; 83735; 84100; 84484; 85025; 87077; 87086; 93005; 93010; 97116-GP; 97162-GP; C9803-CS; J1644; U0003; U0005

== ENCOUNTER 2023-06-23 06:19 | Inpatient (IN) | payer OTHER ==
[2023-06-23] MEDS ORDERED: GlUCAGON HUMAN RECOMBINANT 1 MG/VIAL IM ONE (06:36)
[2023-06-23] MEDS ORDERED: DEXTROSE 50%-WATER - 25 GM/50 ML VIAL IVPUSH ONE (06:37)
[2023-06-23] MEDS ORDERED: GLUCAGON 1 MG KIT ONE (06:37)
[2023-06-23 07:43] LABS: INR 0.94 (0.83-1.09); PROTHROMBIN TIME (PATIENT) 10.9 SEC (9.7-13.0)
[2023-06-23 07:46] LABS: ACTIVATED PTT 20.5 SECONDS (25.2-36.5)
[2023-06-23 07:57] LABS: POTASSIUM 5.7 mmol/L (3.5-5.1)
[2023-06-23 07:59] LABS: CALCIUM 9.5 mg/dL (8.5-10.1)
[2023-06-23 08:00] LABS: ALBUMIN 3.9 g/dl (3.4-5.0); BLOOD UREA NITROGEN 15.3 mg/dL (7-18)
[2023-06-23 08:03] LABS: CREATININE 1.1 mg/dL (0.55-1.3)
[2023-06-23 08:04] LABS: TOT PROT 8.7 g/dl (6.4-8.2)
[2023-06-23 08:05] LABS: BILIRUBIN,TOTAL 0.6 mg/dL (0.2-1)
[2023-06-23 08:36] LABS: PH,URINE 7.5 (5.0-8.0); URINE APPEARANCE CLEAR; URINE BILIRUBIN NEGATIVE (NEGATIVE); URINE COLOR YELLOW; URINE GLUCOSE (UA) 1+ (NEGATIVE); URINE KETONE NEGATIVE (NEGATIVE); URINE LEUK ESTERASE NEGATIVE (NEGATIVE); URINE NITRITE NEGATIVE (NEGATIVE); URINE PROTEIN NEGATIVE (NEGATIVE)
[2023-06-23 11:21] LABS: BASO % 0.5 % (0-2.0); EOS % 0.1 % (0-4.5); HEMATOCRIT 44.2 % (35.4-49); HEMOGLOBIN 14.1 GM/dL (11.7-16.9); LYMPH % 18.7 % (8-40); MCH 28.4 pg (25.7-33.7); MCHC 31.9 g/dl (32.0-35.9); MEAN CELL VOLUME 89.2 fl (80-96); MEAN PLT VOLUME 9.7 fl (7.5-11.1); MONO % 4.3 % (3.8-10.2); NEUT % 76.4 % (42.8-82.8); PLATELET COUNT 179 10^3/uL (134-434); RBC 4.96 M/mm3 (4.00-5.60); RDW 14.9 % (11.9-15.9)
[2023-06-23 12:13] LABS: POTASSIUM 4.6 mmol/L (3.5-5.1)
[2023-06-23 12:15] LABS: CALCIUM 9.1 mg/dL (8.5-10.1)
[2023-06-23 12:16] LABS: ALBUMIN 4.2 g/dl (3.4-5.0); BLOOD UREA NITROGEN 17.8 mg/dL (7-18)
[2023-06-23 12:19] LABS: CREATININE 1.1 mg/dL (0.55-1.3)
[2023-06-23 12:21] LABS: BILIRUBIN,TOTAL 0.4 mg/dL (0.2-1); TOT PROT 8.5 g/dl (6.4-8.2)
[2023-06-23] MEDS ORDERED: LABETALOL HCL 100 MG TABLET (FP) PO ONE (16:38)
[2023-06-23] MEDS ORDERED: LABETALOL HCL 100 MG TABLET (FP) ONE (16:50)
[2023-06-23] MEDS ORDERED: SODIUM CHLORIDE 0.9% 500 ML INFUS.BAG IV ONE (18:01)
[2023-06-23] MEDS ORDERED: INSULIN (NOVOLOG) ASPART 100 UNITS/ML 10ML VIAL SQ SCH (22:00)
[2023-06-23] MEDS ORDERED: SODIUM CHLORIDE 0.45% 1,000 ML IV SCH (22:30)
[2023-06-24] MEDS: INSULIN SLIDING SCALE (NOVOLOG) 1 VIAL SQ SCH ×4 (06:33→21:08)
[2023-06-24 07:19] LABS: EOS % 0.4 % (0-4.5); HEMOGLOBIN 12.5 GM/dL (11.7-16.9); MCH 28.3 pg (25.7-33.7); MEAN CELL VOLUME 88.6 fl (80-96); MEAN PLT VOLUME 10.3 fl (7.5-11.1); MONO % 12.3 % (3.8-10.2); NEUT % 49.3 % (42.8-82.8); PLATELET COUNT 166 10^3/uL (134-434); RDW 15.1 % (11.9-15.9); WHITE BLOOD COUNT 5.4 K/mm3 (4.0-10.0)
[2023-06-24 07:22] LABS: CHLORIDE 103 mmol/L (98-107); POTASSIUM 4.2 mmol/L (3.5-5.1); SODIUM 137 mmol/L (136-145)
[2023-06-24 07:27] LABS: CALCIUM 8.5 mg/dL (8.5-10.1)
[2023-06-24 07:28] LABS: ALBUMIN 3.4 g/dl (3.4-5.0); ANION GAP 4 mmol/L (4-13); CO2 30 mmol/L (21-32)
[2023-06-24 07:31] LABS: CREATININE 1.2 mg/dL (0.55-1.3); SGOT/AST 26 U/L (15-37); SGPT/ALT 27 U/L (13-61)
[2023-06-24 07:32] LABS: BILIRUBIN,TOTAL 0.8 mg/dL (0.2-1)
[2023-06-24 07:34] LABS: ALK PHOS 70 U/L (45-117)
[2023-06-24 07:43] LABS: GLUCOSE,RANDOM 43 mg/dL (74-106)
[2023-06-24] MEDS: LOSARTAN POTASSIUM 50 MG TABLET PO SCH (09:54)
[2023-06-24] MEDS: PANTOPRAZOLE 40 MG TABLET PO SCH (09:54)
[2023-06-24] MEDS: levETIRAcetam 500 MG/5 ML INJECTION VIAL IVPB SCH ×2 (09:54→21:06)
[2023-06-24] MEDS: LABETALOL HCL 100 MG TABLET (FP) PO SCH ×2 (09:54→21:06)
[2023-06-24] MEDS: ENOXAPARIN NA (PORCINE) 40 MG/0.4 ML DISP.SYRIN SQ SCH (09:54)
[2023-06-24] MEDS: EMPAGLIFLOZIN (JARDIANCE) 10 MG TABLET PO SCH ×2 (10:45→15:05)
[2023-06-24] MEDS ORDERED: CEFTRIAXONE 1 GM/50 ML BAG ONE (14:43)
[2023-06-24] MEDS: CEFTRIAXONE 1 GM in DEXTROSE 5%-WATER - 50 ML IVPB SCH (14:55)
[2023-06-24] MEDS ORDERED: methaDONE HCL 10 MG TABLET PO ONE (15:15)
[2023-06-24] MEDS ORDERED: amLODIPine BESYLATE 2.5 MG TABLET (FP) ONE (18:24)
[2023-06-24] MEDS: amLODIPine BESYLATE 2.5 MG TABLET (FP) PO SCH (18:30)
[2023-06-24] MEDS ORDERED: INSULIN (LEVEMIR) 100 UNITS/ML UNITS SQ ONE (21:04)
[2023-06-24] MEDS ORDERED: INSULIN (LEVEMIR) 100 UNITS/ML UNITS SQ SCH (22:00)
[2023-06-24] MEDS: ROSUVASTATIN CA 5 MG TABLET PO SCH (22:39)
[2023-06-25] MEDS: INSULIN SLIDING SCALE (NOVOLOG) 1 VIAL SQ SCH ×6 (00:41→21:49)
[2023-06-25] MEDS ORDERED: INSULIN (NOVOLOG) ASPART 100 UNITS/ML 10ML VIAL SQ SCH (07:00)
[2023-06-25] MEDS ORDERED: INSULIN (LEVEMIR) 100 UNITS/ML UNITS SQ SCH ×2 (07:00→21:48)
[2023-06-25] MEDS: amLODIPine BESYLATE 2.5 MG TABLET (FP) PO SCH (09:19)
[2023-06-25] MEDS: PANTOPRAZOLE 40 MG TABLET PO SCH (09:19)
[2023-06-25] MEDS: LABETALOL HCL 100 MG TABLET (FP) PO SCH ×2 (09:19→21:50)
[2023-06-25] MEDS: CEFTRIAXONE 1 GM in DEXTROSE 5%-WATER - 50 ML IVPB SCH (09:19)
[2023-06-25] MEDS: LOSARTAN POTASSIUM 50 MG TABLET PO SCH (09:19)
[2023-06-25] MEDS: ENOXAPARIN NA (PORCINE) 40 MG/0.4 ML DISP.SYRIN SQ SCH (09:19)
[2023-06-25] MEDS: EMPAGLIFLOZIN (JARDIANCE) 10 MG TABLET PO SCH (09:20)
[2023-06-25] MEDS: levETIRAcetam 500 MG/5 ML INJECTION VIAL IVPB SCH (10:13)
[2023-06-25 11:44] LABS: BASO % 0.7 % (0-2.0); EOS % 0.9 % (0-4.5); HEMOGLOBIN 12.6 GM/dL (11.7-16.9); LYMPH % 27.2 % (8-40); MCH 28.7 pg (25.7-33.7); MCHC 32.4 g/dl (32.0-35.9); MEAN CELL VOLUME 88.6 fl (80-96); MEAN PLT VOLUME 10.2 fl (7.5-11.1); MONO % 5.2 % (3.8-10.2); PLATELET COUNT 170 10^3/uL (134-434); RDW 14.5 % (11.9-15.9); WHITE BLOOD COUNT 5.8 K/mm3 (4.0-10.0)
[2023-06-25 11:59] LABS: POTASSIUM 4.5 mmol/L (3.5-5.1)
[2023-06-25 12:10] LABS: ALBUMIN 3.5 g/dl (3.4-5.0)
[2023-06-25 12:11] LABS: BLOOD UREA NITROGEN 24.2 mg/dL (7-18)
[2023-06-25 12:12] LABS: BILIRUBIN,TOTAL 0.6 mg/dL (0.2-1); TOT PROT 7.2 g/dl (6.4-8.2)
[2023-06-25 12:13] LABS: CALCIUM 8.8 mg/dL (8.5-10.1)
[2023-06-25 12:14] LABS: CREATININE 1.3 mg/dL (0.55-1.3)
[2023-06-25] MEDS: methaDONE HCL 10 MG TABLET PO SCH (12:36)
[2023-06-25 14:44] VITALS: RESP 18
[2023-06-25] MEDS: RANOLAZINE E.R. 500 MG TABLET (FP) PO SCH (21:50)
[2023-06-25] MEDS: levETIRAcetam 500 MG TABLET (FP) PO SCH (21:50)
[2023-06-25] MEDS: ROSUVASTATIN CA 5 MG TABLET PO SCH (21:53)
[2023-06-25 23:05] VITALS: BMI 20.5
[2023-06-26] MEDS: INSULIN SLIDING SCALE (NOVOLOG) 1 VIAL SQ SCH ×2 (06:02→11:35)
[2023-06-26] MEDS ORDERED: INSULIN (LEVEMIR) 100 UNITS/ML UNITS SQ SCH (07:00)
[2023-06-26] MEDS ORDERED: MULTIVITAMINS THER W-MINERALS COMBO TABLET (FP) PO SCH (10:00)
[2023-06-26] MEDS ORDERED: ASCORBIC ACID 500 MG TABLET (FP) PO SCH (10:00)
[2023-06-26] MEDS: methaDONE HCL 10 MG TABLET PO SCH (10:13)
[2023-06-26] MEDS: LOSARTAN POTASSIUM 50 MG TABLET PO SCH (10:14)
[2023-06-26] MEDS: LABETALOL HCL 100 MG TABLET (FP) PO SCH (10:14)
[2023-06-26] MEDS: amLODIPine BESYLATE 2.5 MG TABLET (FP) PO SCH (10:14)
[2023-06-26] MEDS: ENOXAPARIN NA (PORCINE) 40 MG/0.4 ML DISP.SYRIN SQ SCH (10:15)
[2023-06-26] MEDS: levETIRAcetam 500 MG TABLET (FP) PO SCH (10:15)
[2023-06-26] MEDS: PANTOPRAZOLE 40 MG TABLET PO SCH (10:15)
[2023-06-26] MEDS: EMPAGLIFLOZIN (JARDIANCE) 10 MG TABLET PO SCH (10:16)
[2023-06-26] MEDS: RANOLAZINE E.R. 500 MG TABLET (FP) PO SCH (10:16)
[2023-06-26 14:28] VITALS: BP 144/86; PULSE 73; TEMP 98
== END 2023-06-26 15:42 | disposition home health service (06) | DRG 918 ==
LOC: JER 06:19 → JERBED 16:01 → J4S 06-24 19:43
PROVIDERS: ADMIT Internal Medicine; ATTEND Internal Medicine
DX: T38.3X1A Poisoning by insulin and oral hypoglycemic [antidiabetic] drugs, accidental (unintentional), initial encounter (principal); F11.20 Opioid dependence, uncomplicated; I10 Essential (primary) hypertension; E78.5 Hyperlipidemia, unspecified; E11.649 Type 2 diabetes mellitus with hypoglycemia without coma; R56.9 Unspecified convulsions; E11.42 Type 2 diabetes mellitus with diabetic polyneuropathy; D64.9 Anemia, unspecified; Y92.008 Other place in unspecified non-institutional (private) residence as the place of occurrence of the external cause; Z79.4 Long term (current) use of insulin
CPT/HCPCS: 0241U-QW; 36415; 70450-TC; 71045-TC-FY; 72170-TC-FY; 73521-TC-FY; 80053; 80177; 81003; 82962; 83036; 84484; 85025; 85610; 85730; 87077; 87086; 93005; 93010; 97116-GP; 97161-GP; 99285-25

== ENCOUNTER 2024-02-06 12:49 | Inpatient (IN) | payer OTHER ==
[2024-02-06] MEDS ORDERED: CALCIUM GLUC IN NACL, ISO-OSM 1 GM/50 ML BAG IVPB ONE ×2 (13:29→14:22)
[2024-02-06] MEDS ORDERED: ALBUTEROL SO4 2.5/IPRATROPIUM 0.5 INH SOL 3 ML VIAL.NEB. NEB ONE (13:39)
[2024-02-06 14:00] LABS: BASO % 0.2 % (0-2.0); HEMATOCRIT 40.4 % (35.4-49); HEMOGLOBIN 12.5 GM/dL (11.7-16.9); LYMPH % 9.2 % (8-40); MCH 29.3 pg (25.7-33.7); MCHC 30.9 g/dl (32.0-35.9); MEAN CELL VOLUME 94.8 fl (80-96); MEAN PLT VOLUME 10.1 fl (7.5-11.1); MONO % 5.8 % (3.8-10.2); NEUT % 84.8 % (42.8-82.8); PLATELET COUNT 162 10^3/uL (134-434); RBC 4.27 M/mm3 (4.00-5.60)
[2024-02-06 14:02] LABS: VENOUS BASE EXCESS -21.6 mmol/L (-2-2); VENOUS O2 SATURATION 83.4 % (70-80); VENOUS PCO2 21.8 mmHg (38-52); VENOUS PH 7.092 (7.310-7.410)
[2024-02-06] MEDS: CALCIUM GLUC IN NACL, ISO-OSM 1 GM/50 ML BAG IVPB ONE ×3 (14:05→14:24)
[2024-02-06] MEDS: SODIUM CHLORIDE 1,000 ML IV STA ×3 (14:05→15:20)
[2024-02-06 14:08] LABS: INR 0.95 (0.83-1.09); PROTHROMBIN TIME (PATIENT) 10.8 SEC (9.7-13.0)
[2024-02-06 14:11] LABS: ACTIVATED PTT 23.3 SECONDS (25.2-36.5)
[2024-02-06 14:19] LABS: CHLORIDE 93 mmol/L (98-107); SODIUM 134 mmol/L (136-145)
[2024-02-06 14:21] LABS: ALBUMIN 3.7 g/dl (3.4-5.0); BLOOD UREA NITROGEN 56.2 mg/dL (7-18); CALCIUM 9.2 mg/dL (8.5-10.1); CO2 7 mmol/L (21-32); MAGNESIUM 3.2 mg/dL (1.8-2.4)
[2024-02-06] MEDS ORDERED: INSULIN ASPART SLIDING SCALE (NOVOLOG) 1 VIAL SQ ONE (14:22)
[2024-02-06 14:24] LABS: PHOSPHOROUS 8.4 mg/dL (2.5-4.9); SGOT/AST 89 U/L (15-37); SGPT/ALT 48 U/L (13-61)
[2024-02-06] MEDS: INSULIN REGULAR HUMAN 100 UNITS/ML *VIAL IVPUSH ONE ×3 (14:24→17:30)
[2024-02-06 14:25] LABS: CREATININE 2.5 mg/dL (0.55-1.3)
[2024-02-06 14:26] LABS: BILIRUBIN,TOTAL 0.9 mg/dL (0.2-1); TOT PROT 7.5 g/dl (6.4-8.2)
[2024-02-06 14:27] LABS: ALK PHOS 98 U/L (45-117)
[2024-02-06 14:29] LABS: URINE APPEARANCE CLEAR; URINE BILIRUBIN NEGATIVE (NEGATIVE); URINE COLOR YELLOW; URINE GLUCOSE (UA) 2+ (NEGATIVE); URINE KETONE 2+ (NEGATIVE); URINE LEUK ESTERASE NEGATIVE (NEGATIVE); URINE NITRITE NEGATIVE (NEGATIVE); URINE PROTEIN TRACE (NEGATIVE)
[2024-02-06] MEDS: ALBUTEROL SO4 0.083% IH SOL 2.5 MG/3 ML VIAL.NEB. NEB ONE (14:30)
[2024-02-06 14:39] LABS: ANION GAP 34 mmol/L (4-13); GLUCOSE,RANDOM 908 mg/dL (74-106); LACTIC ACID 11.3 mmol/L (0.4-2.0); POTASSIUM 7.4 mmol/L (3.5-5.1)
[2024-02-06] MEDS: INSULIN REGULAR 100 UNITS in SODIUM CHLORIDE 99 ML IVPB SCH (15:07)
[2024-02-06 16:57] LABS: CHLORIDE 99 mmol/L (98-107); SODIUM 134 mmol/L (136-145)
[2024-02-06 16:59] LABS: CALCIUM 9.3 mg/dL (8.5-10.1); CO2 8 mmol/L (21-32)
[2024-02-06 17:00] LABS: BLOOD UREA NITROGEN 55.4 mg/dL (7-18); MAGNESIUM 3.2 mg/dL (1.8-2.4)
[2024-02-06 17:03] LABS: ANION GAP 27 mmol/L (4-13); CREATININE 2.7 mg/dL (0.55-1.3); PHOSPHOROUS 8.6 mg/dL (2.5-4.9); POTASSIUM 7.1 mmol/L (3.5-5.1)
[2024-02-06 17:05] LABS: GLUCOSE,RANDOM 817 mg/dL (74-106); LACTIC ACID 9.3 mmol/L (0.4-2.0)
[2024-02-06] MEDS: SODIUM CHLORIDE 1,000 ML IV SCH (17:30)
[2024-02-06] MEDS: SODIUM ZIRCONIUM CYCLOSILICATE (LOKELMA) 5 GM PACKET PO SCH (18:00)
[2024-02-06] MEDS: ALBUTEROL SO4 0.083% IH SOL 2.5 MG/3 ML VIAL.NEB. NEB SCH (19:51)
[2024-02-06] MEDS: LORazepam 2 MG/ML SDV VIAL IM ONE (19:52)
[2024-02-06] MEDS: HALOPERIDOL LACTATE 5 MG/ML IM ONE (19:52)
[2024-02-06 21:44] LABS: CALCIUM 8.4 mg/dL (8.5-10.1)
[2024-02-06 21:45] LABS: BLOOD UREA NITROGEN 49.3 mg/dL (7-18)
[2024-02-06 21:48] LABS: CREATININE 2.5 mg/dL (0.55-1.3)
[2024-02-06] MEDS: LACTATED RINGERS SOLUTION 1000 ML INFUS.BAG IV ONE (21:59)
[2024-02-06] MEDS: DEXTROSE 5%-0.45% SALINE 1,000 ML IV SCH (22:00)
[2024-02-06 22:02] LABS: LACTIC ACID 5.3 mmol/L (0.4-2.0)
[2024-02-06] MEDS: HEPARIN NA (PORCINE) 5,000 UNITS/ML 1ML VIAL SQ SCH (22:02)
[2024-02-07 01:09] LABS: POTASSIUM 4.3 mmol/L (3.5-5.1)
[2024-02-07 01:13] LABS: BLOOD UREA NITROGEN 43.9 mg/dL (7-18); CALCIUM 8.1 mg/dL (8.5-10.1); MAGNESIUM 2.7 mg/dL (1.8-2.4)
[2024-02-07 01:16] LABS: PHOSPHOROUS 3.8 mg/dL (2.5-4.9)
[2024-02-07 01:18] LABS: BILIRUBIN,TOTAL 0.7 mg/dL (0.2-1)
[2024-02-07 01:21] LABS: LACTIC ACID 2.4 mmol/L (0.4-2.0)
[2024-02-07 07:22] LABS: POTASSIUM 4.2 mmol/L (3.5-5.1)
[2024-02-07 07:28] LABS: ALBUMIN 3.2 g/dl (3.4-5.0); CALCIUM 8.2 mg/dL (8.5-10.1)
[2024-02-07 07:29] LABS: BLOOD UREA NITROGEN 41.2 mg/dL (7-18)
[2024-02-07 07:31] LABS: CREATININE 1.8 mg/dL (0.55-1.3)
[2024-02-07 07:34] LABS: BILIRUBIN,TOTAL 0.9 mg/dL (0.2-1); TOT PROT 6.2 g/dl (6.4-8.2)
[2024-02-07] MEDS: INSULIN (LEVEMIR) 100 UNITS/ML UNITS SQ SCH (08:14)
[2024-02-07] MEDS: INSULIN ASPART SLIDING SCALE (NOVOLOG) 1 VIAL SQ SCH ×2 (08:15→22:16)
[2024-02-07] MEDS: methaDONE HCL 10 MG TABLET PO ONE (09:33)
[2024-02-07] MEDS: levETIRAcetam 500 MG TABLET (FP) PO SCH ×2 (09:33→23:06)
[2024-02-07 09:35] LABS: BASO % 0.3 % (0-2.0); HEMATOCRIT 32.5 % (35.4-49); HEMOGLOBIN 10.6 GM/dL (11.7-16.9); LYMPH % 12.5 % (8-40); MCHC 32.5 g/dl (32.0-35.9); MEAN CELL VOLUME 89.2 fl (80-96); MEAN PLT VOLUME 9.9 fl (7.5-11.1); MONO % 6.3 % (3.8-10.2); NEUT % 80.9 % (42.8-82.8); PLATELET COUNT 120 10^3/uL (134-434); RBC 3.64 M/mm3 (4.00-5.60); RDW 15.7 % (11.9-15.9); WHITE BLOOD COUNT 12.8 K/mm3 (4.0-10.0)
[2024-02-07] MEDS: PNEUMOC 20-VAL CONJ-DIP CRM/PF 0.5 ML SYRINGE IM ONE (15:24)
[2024-02-07] MEDS: ARTIFICIAL TEARS OPHTHALMIC DROPS OU PRN (15:24)
[2024-02-07 18:28] VITALS: RESP 18
[2024-02-07] MEDS ORDERED: ARTIFICIAL TEARS OPHTHALMIC DROPS OU PRN (20:13)
[2024-02-07] MEDS: HEPARIN NA (PORCINE) 5,000 UNITS/ML 1ML VIAL SQ SCH (22:16)
[2024-02-07] MEDS: DEXTROSE 5%-0.45% SALINE 1,000 ML IV SCH (23:06)
[2024-02-08] MEDS: methaDONE HCL 10 MG TABLET PO SCH (05:14)
[2024-02-08] MEDS: INSULIN (LEVEMIR) 100 UNITS/ML UNITS SQ SCH (06:20)
[2024-02-08] MEDS: INSULIN ASPART SLIDING SCALE (NOVOLOG) 1 VIAL SQ SCH (06:21)
[2024-02-08] MEDS: ALBUTEROL SO4 0.083% IH SOL 2.5 MG/3 ML VIAL.NEB. NEB SCH (07:20)
[2024-02-08 09:54] LABS: BASO % 0.6 % (0-2.0); EOS % 0.4 % (0-4.5); HEMATOCRIT 34.1 % (35.4-49); HEMOGLOBIN 11.4 GM/dL (11.7-16.9); LYMPH % 19.7 % (8-40); MCH 29.4 pg (25.7-33.7); MCHC 33.4 g/dl (32.0-35.9); MEAN CELL VOLUME 88.1 fl (80-96); MEAN PLT VOLUME 9.4 fl (7.5-11.1); MONO % 4.4 % (3.8-10.2); NEUT % 74.9 % (42.8-82.8); PLATELET COUNT 109 10^3/uL (134-434); RBC 3.87 M/mm3 (4.00-5.60); RDW 15.4 % (11.9-15.9); WHITE BLOOD COUNT 8.8 K/mm3 (4.0-10.0)
[2024-02-08] MEDS ORDERED: levETIRAcetam 500 MG TABLET (FP) PO SCH (10:00)
[2024-02-08 10:11] LABS: POTASSIUM 3.8 mmol/L (3.5-5.1)
[2024-02-08 10:18] LABS: BLOOD UREA NITROGEN 24.1 mg/dL (7-18); CALCIUM 7.6 mg/dL (8.5-10.1)
[2024-02-08 10:19] LABS: ALBUMIN 2.9 g/dl (3.4-5.0)
[2024-02-08 10:22] LABS: CREATININE 1.4 mg/dL (0.55-1.3); PHOSPHOROUS 2.4 mg/dL (2.5-4.9)
[2024-02-08 10:23] LABS: BILIRUBIN,TOTAL 0.6 mg/dL (0.2-1); TOT PROT 6.2 g/dl (6.4-8.2)
[2024-02-08 12:07] VITALS: BMI 20.5
[2024-02-08] MEDS: VANCOMYCIN PREMIX 1.5 GM 1,500 MG/300 ML BAG IVPB ONE (19:14)
[2024-02-08] MEDS: amLODIPine BESYLATE 10 MG TABLET (FP) PO ONE (22:02)
[2024-02-09] MEDS: INSULIN (LEVEMIR) 100 UNITS/ML UNITS SQ SCH (06:01)
[2024-02-09 09:39] LABS: EOS % 0.6 % (0-4.5); HEMOGLOBIN 12.7 GM/dL (11.7-16.9); LYMPH % 32.2 % (8-40); MCH 29.8 pg (25.7-33.7); MCHC 33.5 g/dl (32.0-35.9); MEAN CELL VOLUME 89.1 fl (80-96); MEAN PLT VOLUME 9.9 fl (7.5-11.1); NEUT % 61.2 % (42.8-82.8); PLATELET COUNT 119 10^3/uL (134-434); RBC 4.26 M/mm3 (4.00-5.60); RDW 15.2 % (11.9-15.9); WHITE BLOOD COUNT 7.1 K/mm3 (4.0-10.0)
[2024-02-09 10:02] LABS: POTASSIUM 4.2 mmol/L (3.5-5.1)
[2024-02-09 10:10] LABS: BLOOD UREA NITROGEN 14.3 mg/dL (7-18)
[2024-02-09 10:13] LABS: CREATININE 1.2 mg/dL (0.55-1.3)
[2024-02-09 10:15] LABS: TOT PROT 7.3 g/dl (6.4-8.2)
[2024-02-09 10:16] LABS: BILIRUBIN,TOTAL 0.8 mg/dL (0.2-1)
[2024-02-09 10:24] LABS: ALBUMIN 3.6 g/dl (3.4-5.0); CALCIUM 8.9 mg/dL (8.5-10.1)
[2024-02-10] MEDS: EMPAGLIFLOZIN (JARDIANCE) 10 MG TABLET PO SCH (06:55)
[2024-02-10 08:57] LABS: BASO % 0.5 % (0-2.0); EOS % 0.9 % (0-4.5); HEMATOCRIT 39.9 % (35.4-49); HEMOGLOBIN 13.2 GM/dL (11.7-16.9); LYMPH % 37.1 % (8-40); MCH 29.3 pg (25.7-33.7); MCHC 33.1 g/dl (32.0-35.9); MEAN CELL VOLUME 88.6 fl (80-96); MEAN PLT VOLUME 9.8 fl (7.5-11.1); MONO % 7.4 % (3.8-10.2); NEUT % 54.1 % (42.8-82.8); PLATELET COUNT 138 10^3/uL (134-434); RDW 15.2 % (11.9-15.9); WHITE BLOOD COUNT 6.6 K/mm3 (4.0-10.0)
[2024-02-10 09:14] LABS: POTASSIUM 4.1 mmol/L (3.5-5.1)
[2024-02-10 09:17] LABS: ALBUMIN 3.7 g/dl (3.4-5.0); BLOOD UREA NITROGEN 15.3 mg/dL (7-18); CALCIUM 9.3 mg/dL (8.5-10.1)
[2024-02-10 09:20] LABS: CREATININE 1.3 mg/dL (0.55-1.3)
[2024-02-10 09:22] LABS: BILIRUBIN,TOTAL 0.7 mg/dL (0.2-1); TOT PROT 7.5 g/dl (6.4-8.2)
[2024-02-10 10:00] VITALS: BP 109/68; PULSE 85; TEMP 98.6
[2024-02-10] MEDS: PANTOPRAZOLE 40 MG TABLET PO SCH (11:04)
== END 2024-02-10 18:30 | disposition home health service (06) | DRG 638 ==
LOC: JER 12:49 → JERBED 14:49 → JICU 17:06 → J5S 02-07 15:58
PROVIDERS: ADMIT Internal Medicine Pulmonary Disease; ATTEND Internal Medicine
DX: E11.10 Type 2 diabetes mellitus with ketoacidosis without coma (principal); F11.20 Opioid dependence, uncomplicated; I10 Essential (primary) hypertension; E78.5 Hyperlipidemia, unspecified; Z79.4 Long term (current) use of insulin; E87.5 Hyperkalemia; G40.909 Epilepsy, unspecified, not intractable, without status epilepticus; I25.10 Atherosclerotic heart disease of native coronary artery without angina pectoris; Z86.73 Personal history of transient ischemic attack (TIA), and cerebral infarction without residual deficits
CPT/HCPCS: 0241U-QW; 36415; 71045-TC-FY; 80048; 80053; 81003; 82010; 82803; 82962; 83036; 83605; 83735; 84100; 84484; 85025; 85610; 85730; 87040; 87086; 90677; 93005; 93010; 94640; 97116-GP; 97162-GP; 99291; G0009; J1644

== ENCOUNTER 2024-06-16 12:14 | Inpatient (IN) | payer OTHER ==
[2024-06-16 13:39] LABS: VENOUS BASE EXCESS -19.3 mmol/L (-2-2); VENOUS O2 SATURATION 39.8 % (70-80); VENOUS PCO2 31.2 mmHg (38-52)
[2024-06-16 13:41] LABS: VENOUS PH 7.093 (7.310-7.410)
[2024-06-16] MEDS: SODIUM CHLORIDE 0.9% 500 ML INFUS.BAG IV ONE ×2 (13:46→16:36)
[2024-06-16 13:47] LABS: INR 0.96 (0.83-1.09); PROTHROMBIN TIME (PATIENT) 11.1 SEC (9.7-13.0)
[2024-06-16 13:49] LABS: ACTIVATED PTT 27.9 SECONDS (25.2-36.5)
[2024-06-16 13:50] LABS: BASO % 0.1 % (0-2.0); HEMATOCRIT 41.6 % (35.4-49); HEMOGLOBIN 12.8 GM/dL (11.7-16.9); LYMPH % 4.6 % (8-40); MCH 28.5 pg (25.7-33.7); MCHC 30.7 g/dl (32.0-35.9); MEAN CELL VOLUME 92.9 fl (80-96); MEAN PLT VOLUME 9.9 fl (7.5-11.1); NEUT % 89.3 % (42.8-82.8); PLATELET COUNT 198 10^3/uL (134-434); RBC 4.48 M/mm3 (4.00-5.60); RDW 16.2 % (11.9-15.9); WHITE BLOOD COUNT 16.4 K/mm3 (4.0-10.0)
[2024-06-16 14:04] LABS: CHLORIDE 96 mmol/L (98-107); POTASSIUM 5.4 mmol/L (3.5-5.1); SODIUM 133 mmol/L (136-145)
[2024-06-16 14:06] LABS: CALCIUM 9.3 mg/dL (8.5-10.1)
[2024-06-16 14:07] LABS: ANION GAP 25 mmol/L (4-13); BLOOD UREA NITROGEN 43.4 mg/dL (7-18); CO2 12 mmol/L (21-32); MAGNESIUM 3.1 mg/dL (1.8-2.4)
[2024-06-16 14:10] LABS: CREATININE 2.6 mg/dL (0.55-1.3); SGOT/AST 55 U/L (15-37); SGPT/ALT 42 U/L (13-61)
[2024-06-16 14:11] LABS: BILIRUBIN,TOTAL 0.5 mg/dL (0.2-1); PHOSPHOROUS 8.8 mg/dL (2.5-4.9); TOT PROT 8.3 g/dl (6.4-8.2)
[2024-06-16 14:13] LABS: ALK PHOS 100 U/L (45-117)
[2024-06-16 14:15] LABS: GLUCOSE,RANDOM 696 mg/dL (74-106); LACTIC ACID 7.7 mmol/L (0.4-2.0)
[2024-06-16 14:23] LABS: URINE APPEARANCE CLEAR; URINE BILIRUBIN NEGATIVE (NEGATIVE); URINE COLOR YELLOW; URINE GLUCOSE (UA) 3+ (NEGATIVE); URINE KETONE 2+ (NEGATIVE); URINE LEUK ESTERASE NEGATIVE (NEGATIVE); URINE NITRITE NEGATIVE (NEGATIVE); URINE PROTEIN NEGATIVE (NEGATIVE); URINE UROBILINOGEN 0.2 mg/dL (0.2-1.0)
[2024-06-16] MEDS: INSULIN REGULAR 100 UNITS in SODIUM CHLORIDE 99 ML IVPB SCH (14:50)
[2024-06-16 15:02] LABS: HIV INTERPRETATION NEGATIVE (NEGATIVE)
[2024-06-16] MEDS: PIPERACILLIN/TAZOB 2.25 GM 2.25 GM/50 ML BAG IVPB SCH (18:52)
[2024-06-16] MEDS: VANCOMYCIN/WATER FOR INJ (PEG) 1,000 MG/200 ML BAG IVPB SCH (20:09)
[2024-06-16] MEDS: SODIUM CHLORIDE 1,000 ML IV SCH (20:12)
[2024-06-16] MEDS: DEXTROSE 5%-NORMAL SALINE 1,000 ML IV SCH (21:10)
[2024-06-16] MEDS: MUPIROCIN 2% TOPICAL OINTMENT FOR DECOLONIZATION NS SCH (21:14)
[2024-06-16] MEDS: CHLORHEXIDINE GLUCONATE 4% CLEANSER FOR DECOLONIZATION TP SCH (21:14)
[2024-06-16] MEDS: HEPARIN NA (PORCINE) 5,000 UNITS/ML 1ML VIAL SQ SCH (21:16)
[2024-06-16 21:19] LABS: POTASSIUM 3.9 mmol/L (3.5-5.1)
[2024-06-16 21:20] LABS: BLOOD UREA NITROGEN 38.7 mg/dL (7-18); CALCIUM 8.5 mg/dL (8.5-10.1)
[2024-06-16 21:24] LABS: CREATININE 1.9 mg/dL (0.55-1.3)
[2024-06-17] MEDS: INSULIN (LEVEMIR) 100 UNITS/ML UNITS SQ SCH (01:59)
[2024-06-17] MEDS: SODIUM CHLORIDE 1,000 ML IV SCH (01:59)
[2024-06-17] MEDS: INSULIN ASPART SLIDING SCALE (NOVOLOG) 1 VIAL SQ SCH (06:47)
[2024-06-17 07:05] LABS: HEMATOCRIT 34.1 % (35.4-49); MCH 28.6 pg (25.7-33.7); MCHC 32.4 g/dl (32.0-35.9); MEAN CELL VOLUME 88.3 fl (80-96); MEAN PLT VOLUME 9.6 fl (7.5-11.1); PLATELET COUNT 123 10^3/uL (134-434); RBC 3.86 M/mm3 (4.00-5.60); RDW 15.1 % (11.9-15.9); WHITE BLOOD COUNT 10.9 K/mm3 (4.0-10.0)
[2024-06-17 07:06] LABS: POTASSIUM 4.5 mmol/L (3.5-5.1)
[2024-06-17 07:10] LABS: BLOOD UREA NITROGEN 33.5 mg/dL (7-18); CALCIUM 8.5 mg/dL (8.5-10.1); MAGNESIUM 2.3 mg/dL (1.8-2.4)
[2024-06-17 07:13] LABS: CREATININE 1.6 mg/dL (0.55-1.3)
[2024-06-17 07:14] LABS: PHOSPHOROUS 3.5 mg/dL (2.5-4.9)
[2024-06-17] MEDS: PANTOPRAZOLE 40 MG TABLET PO SCH (09:32)
[2024-06-17] MEDS: amLODIPine BESYLATE 5 MG TABLET (FP) PO SCH (09:32)
[2024-06-17] MEDS: levETIRAcetam 500 MG TABLET (FP) PO SCH (09:32)
[2024-06-17] MEDS: methaDONE HCL 10 MG TABLET PO SCH (09:32)
[2024-06-17] MEDS: LISINOPRIL 20 MG TABLET PO SCH (09:32)
[2024-06-17] MEDS ORDERED: levETIRAcetam 500 MG TABLET (FP) PO SCH (10:00)
[2024-06-17] MEDS: PIPERACILLIN/TAZOB 2.25 GM 2.25 GM in DEXTROSE 5%-WATER - 50 ML IVPB SCH (11:16)
[2024-06-17] MEDS: VANCOMYCIN 1,000 MG in DEXTROSE 5%-WATER - 250 ML IVPB SCH (11:18)
[2024-06-17] MEDS: ROSUVASTATIN CA 20 MG TABLET PO SCH (21:18)
[2024-06-18 06:15] LABS: BASO % 0.9 % (0-2.0); EOS % 0.2 % (0-4.5); HEMATOCRIT 35.5 % (35.4-49); HEMOGLOBIN 11.5 GM/dL (11.7-16.9); LYMPH % 38.5 % (8-40); MCH 28.5 pg (25.7-33.7); MCHC 32.4 g/dl (32.0-35.9); MEAN CELL VOLUME 88.1 fl (80-96); MEAN PLT VOLUME 9.1 fl (7.5-11.1); MONO % 5.5 % (3.8-10.2); NEUT % 54.9 % (42.8-82.8); PLATELET COUNT 115 10^3/uL (134-434); RBC 4.02 M/mm3 (4.00-5.60); RDW 14.7 % (11.9-15.9); WHITE BLOOD COUNT 7.2 K/mm3 (4.0-10.0)
[2024-06-18 06:51] LABS: POTASSIUM 3.6 mmol/L (3.5-5.1)
[2024-06-18 06:53] LABS: BLOOD UREA NITROGEN 18.2 mg/dL (7-18); CALCIUM 8.3 mg/dL (8.5-10.1); MAGNESIUM 2.2 mg/dL (1.8-2.4)
[2024-06-18 06:56] LABS: CREATININE 1.1 mg/dL (0.55-1.3)
[2024-06-18 06:57] LABS: BILIRUBIN,TOTAL 0.5 mg/dL (0.2-1); PHOSPHOROUS 2.4 mg/dL (2.5-4.9)
[2024-06-18 07:28] LABS: TOT PROT 6.1 g/dl (6.4-8.2)
[2024-06-18] MEDS: HEPARIN NA (PORCINE) 5,000 UNITS/ML 1ML VIAL SQ SCH (21:20)
[2024-06-18] MEDS: ROSUVASTATIN CA 20 MG TABLET PO SCH (21:20)
[2024-06-18] MEDS: levETIRAcetam 500 MG TABLET (FP) PO SCH (21:20)
[2024-06-18] MEDS ORDERED: INSULIN (LEVEMIR) 100 UNITS/ML UNITS SQ SCH (22:00)
[2024-06-18] MEDS ORDERED: CHLORHEXIDINE GLUCONATE 4% CLEANSER FOR DECOLONIZATION TP SCH (22:00)
[2024-06-18] MEDS ORDERED: MUPIROCIN 2% TOPICAL OINTMENT FOR DECOLONIZATION NS SCH (22:00)
[2024-06-19] MEDS: methaDONE HCL 10 MG TABLET PO SCH (06:10)
[2024-06-19] MEDS: INSULIN (LEVEMIR) 100 UNITS/ML UNITS SQ SCH (06:13)
[2024-06-19] MEDS: INSULIN ASPART SLIDING SCALE (NOVOLOG) 1 VIAL SQ SCH (06:24)
[2024-06-19] MEDS: amLODIPine BESYLATE 5 MG TABLET (FP) PO SCH (10:55)
[2024-06-19] MEDS: LISINOPRIL 20 MG TABLET PO SCH (10:55)
[2024-06-19] MEDS: PANTOPRAZOLE 40 MG TABLET PO SCH (10:55)
[2024-06-20] MEDS: INSULIN (NOVOLOG) ASPART 100 UNITS/ML 10ML VIAL SQ ONE (11:15)
[2024-06-20] MEDS ORDERED: INSULIN (LEVEMIR) 100 UNITS/ML UNITS SQ SCH (22:00)
[2024-06-21 07:58] LABS: CHLORIDE 96 mmol/L (98-107); POTASSIUM 5.7 mmol/L (3.5-5.1); SODIUM 130 mmol/L (136-145)
[2024-06-21 08:07] LABS: CALCIUM 8.6 mg/dL (8.5-10.1)
[2024-06-21 08:08] LABS: ANION GAP 12 mmol/L (4-13); BLOOD UREA NITROGEN 24.8 mg/dL (7-18); CO2 22 mmol/L (21-32)
[2024-06-21 08:10] LABS: SGPT/ALT 36 U/L (13-61)
[2024-06-21 08:11] LABS: CREATININE 1.2 mg/dL (0.55-1.3); SGOT/AST 42 U/L (15-37)
[2024-06-21 08:12] LABS: BILIRUBIN,TOTAL 0.6 mg/dL (0.2-1)
[2024-06-21 08:13] LABS: ALK PHOS 87 U/L (45-117); TOT PROT 6.5 g/dl (6.4-8.2)
[2024-06-21 08:15] LABS: BASO % 0.3 % (0-2.0); EOS % 0.6 % (0-4.5); HEMATOCRIT 37.1 % (35.4-49); LYMPH % 14.5 % (8-40); MCH 28.7 pg (25.7-33.7); MCHC 32.3 g/dl (32.0-35.9); MEAN CELL VOLUME 88.9 fl (80-96); MEAN PLT VOLUME 10.9 fl (7.5-11.1); MONO % 5.2 % (3.8-10.2); NEUT % 79.4 % (42.8-82.8); PLATELET COUNT 118 10^3/uL (134-434); RBC 4.17 M/mm3 (4.00-5.60); RDW 14.5 % (11.9-15.9); WHITE BLOOD COUNT 7.8 K/mm3 (4.0-10.0)
[2024-06-21 08:33] LABS: GLUCOSE,RANDOM 473 mg/dL (74-106)
[2024-06-21] MEDS: INSULIN (LEVEMIR) 100 UNITS/ML UNITS SQ SCH (21:10)
[2024-06-21] MEDS ORDERED: INSULIN (LEVEMIR) 100 UNITS/ML UNITS SQ SCH ×2 (22:00)
[2024-06-22] MEDS: INSULIN ASPART SLIDING SCALE (NOVOLOG) 1 VIAL SQ SCH (06:31)
[2024-06-22 15:36] VITALS: BP 111/70; PULSE 72; RESP 17; TEMP 98.1
== END 2024-06-22 15:40 | disposition home or self-care (01) | DRG 638 ==
LOC: JER 12:14 → JERBED 14:27 → JICU 15:07 → J6S 06-18 20:06
PROVIDERS: ADMIT Internal Medicine; ATTEND Internal Medicine
DX: E11.10 Type 2 diabetes mellitus with ketoacidosis without coma (principal); E87.1 Hypo-osmolality and hyponatremia; F11.20 Opioid dependence, uncomplicated; N17.9 Acute kidney failure, unspecified; I25.10 Atherosclerotic heart disease of native coronary artery without angina pectoris; I10 Essential (primary) hypertension; E78.5 Hyperlipidemia, unspecified; E86.0 Dehydration; D64.9 Anemia, unspecified; E11.40 Type 2 diabetes mellitus with diabetic neuropathy, unspecified; Z86.73 Personal history of transient ischemic attack (TIA), and cerebral infarction without residual deficits; E87.5 Hyperkalemia
CPT/HCPCS: 0241U-QW; 36415; 71045-TC-FY; 80048; 80053; 81003; 82010; 82803; 82962; 83036; 83605; 83735; 83880; 84100; 84484; 85025; 85027; 85610; 85730; 86803; 86850; 86900; 86901; 87040; 87086; 87186; 87389; 87481; 87522; 93005; 93010; 99285-25; J1644